=== PATIENT | male | born 1985 | race Caucasian/White ===

== ENCOUNTER 2017-12-04 17:28 | Emergency (ER) | payer OTHER, SELFPAY ==
[2017-12-04 17:30] VITALS: BP 149/92; PULSE 101; RESP 16; TEMP 35.9; BMI 29.5
--- NOTE | 2017-12-04 17:44 | ED.RN ---
pt reports slipping down six stairs yesterday evening. slipping backwards and landing on my tailbone. pt reports pain radiating down legs and to lower back but denies bowel or bladder dysfunction. pt denies hitting head or loc. last tylenol 1000mg aT 1430.
--- NOTE | 2017-12-04 18:03 | RAD_ITS ---
STUDY: X-RAY - LUMBAR SPINE REASON FOR EXAM: Male, 32 years old. Fall. Back and pelvic pain. TECHNIQUE: 2 view(s) of the lumbar spine were obtained. COMPARISON: None FINDINGS: Normal lumbar lordosis. There is no substantial scoliosis. There is a normal alignment of the vertebrae. Normal vertebral bodies and endplates. Normal disc space heights. The soft tissue structures are unremarkable. RAD/Lumbar Spine 2 or 3 Views IMPRESSION: No significant abnormality present. Electronically Signed: Aris Varela MD at 18:55 EDT , Service support ,
--- NOTE | 2017-12-04 18:03 | RAD_ITS ---
STUDY: X-RAY - SACRUM/COCCYX REASON FOR EXAM: Male, 32 years old. Fall down stairs. Low back and pelvic pain. TECHNIQUE: 3 view(s) of the sacrum and coccyx were obtained. COMPARISON: None. FINDINGS: Normal bilateral sacroiliac joints. Normal visualized sacral ala and fused sacral bodies. Normal sacrococcygeal junction with a normal angulation. Normal coccygeal segments. The presacral soft tissue structures are unremarkable. RAD/Sacrum-Coccyx min 2 Views IMPRESSION: No significant abnormality present. Electronically Signed: Aris Varela MD at 18:55 EDT , Service support ,
--- NOTE | 2017-12-04 18:04 | ED.VIS.GEN ---
History of Present Illness Chief Complaint: Back Informant: Patient Onset: Yesterday Context: Sudden Onset Timing: Continuous Quality: ache/sore Location: tailbone. radiates up into low back Current Severity: Moderate Maximum Severity: Moderate Worsened by: walking, sitting Relieved by: remaining still Associated Symptoms: no bowel or bladder dysfunction. no LE weakness or numbness. no abd pain Narrative: Patient states he slipped going down some steps, bounced his tailbone off 5 or 6 steps before he got to the end of the stair with case. Has been ambulatory without difficulty, here because of pain. Past Medical History - Allergies and Home Meds Allergies/Adverse Reactions: Allergies Penicillins [PCN] Adverse Reaction (Verified 06/11/13 11:36) Unknown Primary Care Physician: Oyl Steele PA [Primary Care Provider] - Past Medical History: None Smoking Status: Current every day smoker Review of Systems All systems negative except as indicated Gastrointestinal: Denies: Abdominal pain, Nausea, Hematochezia Genitourinary: Denies: Hematuria Musculoskeletal: Reports: Back pain. Denies: Neck pain Skin: Denies: Rash, Wounds Neurological: Denies: Headache, Weakness, Parasthesia, Numbness Physical Exam Vital Signs/Narrative: Vital Signs Temp Pulse Resp BP 12/04/17 17:30 96.6 F L 101 H 16 149/92 H Inital Vital Signs reviewed: Yes General: Well nourished, Well developed, - - Well-appearing NAD Head: Normocephalic, Atraumatic Eyes: Perrl, EOMI ENT: Moist mucous membranes, No rhinorrhea Back: Normal Inspection, Spinal tenderness - Lower lumbar. No step-off. Also tender at coccyx without crepitance. Skin: Normal color, No rash. Negative for: Trauma Neurological: Alert, Oriented x3, Cranial nerves II-XII grossly intact, Normal Strength, Normal Sensation, Normal Gait Psychological: Normal affect Diagnostic/Tx/Re-eval Clinical Impression(s) from Imaging Studies Lumbar Spine X-Ray 12/04/17 18:03 IMPRESSION: No significant abnormality present. Electronically Signed: Aris Varela MD at 18:55 EDT , Service support , Sacrum and Coccyx X-Ray 12/04/17 18:03 IMPRESSION: No significant abnormality present. Electronically Signed: Aris Varela MD at 18:55 EDT , Service support , - Medical Decision Making X-rays are normal. Patient given an ice pack and naproxen. He is asking for something for pain. I reviewed his oars report. He gets regular narcotic prescriptions from his PCP, if he feels he needs narcotics for these bruises, I recommend that he follow-up with his PCP his narcotic prescriber. ED Disposition - Plan for ED Patient: Disposition: Home or Assisted Living Chief Complaint: Back Diagnosis: Coccyx contusion Instructions: ED Contusion Sacrum Coccyx Referrals: Oly Steele PA [Primary Care Provider] - 3-5 Days if not improving
--- NOTE | 2017-12-04 18:07 | ED.DCSUM_ITS ---
History of Present Illness Chief Complaint: Back Informant: Patient Onset: Yesterday Context: Sudden Onset Timing: Continuous Quality: ache/sore Location: tailbone. radiates up into low back Current Severity: Moderate Maximum Severity: Moderate Worsened by: walking, sitting Relieved by: remaining still Associated Symptoms: no bowel or bladder dysfunction. no LE weakness or numbness. no abd pain Narrative: Patient states he slipped going down some steps, bounced his tailbone off 5 or 6 steps before he got to the end of the stair with case. Has been ambulatory without difficulty, here because of pain. Past Medical History - Allergies and Home Meds Allergies/Adverse Reactions: Allergies Penicillins [PCN] Adverse Reaction (Verified 06/11/13 11:36) Unknown Primary Care Physician: Oly Steele PA [Primary Care Provider] - Past Medical History: None Smoking Status: Current every day smoker Review of Systems All systems negative except as indicated Gastrointestinal: Denies: Abdominal pain, Nausea, Hematochezia Genitourinary: Denies: Hematuria Musculoskeletal: Reports: Back pain. Denies: Neck pain Skin: Denies: Rash, Wounds Neurological: Denies: Headache, Weakness, Parasthesia, Numbness Physical Exam Vital Signs/Narrative: Vital Signs Temp Pulse Resp BP 12/04/17 17:30 96.6 F L 101 H 16 149/92 H Inital Vital Signs reviewed: Yes General: Well nourished, Well developed, - - Well-appearing NAD Head: Normocephalic, Atraumatic Eyes: Perrl, EOMI ENT: Moist mucous membranes, No rhinorrhea Back: Normal Inspection, Spinal tenderness - Lower lumbar. No step-off. Also tender at coccyx without crepitance. Skin: Normal color, No rash. Negative for: Trauma Neurological: Alert, Oriented x3, Cranial nerves II-XII grossly intact, Normal Strength, Normal Sensation, Normal Gait Psychological: Normal affect Diagnostic/Tx/Re-eval Clinical Impression(s) from Imaging Studies Lumbar Spine X-Ray 12/04/17 18:03 IMPRESSION: No significant abnormality present. Electronically Signed: Aris Varela MD at 18:55 EDT , Service support , Sacrum and Coccyx X-Ray 12/04/17 18:03 IMPRESSION: No significant abnormality present. Electronically Signed: Aris Varela MD at 18:55 EDT , Service support , - Medical Decision Making X-rays are normal. Patient given an ice pack and naproxen. He is asking for something for pain. I reviewed his oars report. He gets regular narcotic prescriptions from his PCP, if he feels he needs narcotics for these bruises, I recommend that he follow-up with his PCP his narcotic prescriber. ED Disposition - Plan for ED Patient: Disposition: Home or Assisted Living Chief Complaint: Back Diagnosis: Coccyx contusion Instructions: ED Contusion Sacrum Coccyx Referrals: Oly Steele PA [Primary Care Provider] - 3-5 Days if not improving
[2017-12-04] MEDS: Naproxen 500 MG Tablet PO (18:58)
[2017-12-04 19:16] VITALS: BP 139/78; PULSE 89; RESP 20; O2SAT 96
== END 2017-12-04 19:17 | disposition home or self-care (01) ==
PROVIDERS: Emergency Provider Emergency Medicine; Family Provider Physician Assistant; PCP Physician Assistant
DX: S30.0XXA Contusion of lower back and pelvis, initial encounter (principal); W10.9XXA Fall (on) (from) unspecified stairs and steps, initial encounter; Y93.9 Activity, unspecified; Y92.9 Unspecified place or not applicable; Y99.9 Unspecified external cause status; F17.200 Nicotine dependence, unspecified, uncomplicated
CPT/HCPCS: 72100; 72220; 99283

== ENCOUNTER 2017-12-28 10:41 | Emergency (ER) | payer OTHER, SELFPAY ==
[2017-12-28 10:42] VITALS: BP 137/96; PULSE 108; RESP 16; O2SAT 97; BMI 31.8
--- NOTE | 2017-12-28 10:42 | NURSING ---
NO OLD EKGS
--- NOTE | 2017-12-28 11:01 | NURSING ---
called [facility] for heart cath report done in jul, 2016. talked to nam in medical records. she will fax report to us.
[2017-12-28] MEDS: Aspirin 81 MG TAB.CHEW 324 MG PO (11:06)
[2017-12-28] MEDS: 0.9% Normal Saline 1,000 ML 150 ML IV (11:06)
[2017-12-28] MEDS: Clopidogrel Bisulfate 300 MG Tablet 75 MG PO (11:06)
[2017-12-28] MEDS: Metoprolol Tartrate 5 MG/5 ML Vial IV (11:06)
[2017-12-28 11:15] LABS: Absolute Lymphocyte Count 2.83 X10^3/ul (0.83-4.51); Absolute Neutrophil Count 5.5 X10^3/uL (2.0-7.7); Basophil# 0.04 X10^3/uL; Basophil% 0.4 % (0-1); Eosinophil# 0.18 X10^3/uL; Eosinophils% 1.9 % (0-5); Hematocrit 38.3 % (40-54); Hemoglobin 12.8 g/dl (13.0-16.5); Lymphocyte # 2.83 X10^3/ul (4.0); Lymphocyte % 30.3 % (19-41); Mean Corp Hgb Conc 33.4 g/gl (32-36); Mean Corpuscular Volume 86.8 fL (80-94); Mean Platelet Vol. 9.8 fl (6.2-12.0); Monocyte# 0.76 X10^3/uL; Monocyte% 8.1 % (0-10); Neutrophil # 5.52 X10^3/uL (2.7-7.7); Neutrophil % 59.1 % (47-70); POSITIVE COUNT NO; POSITIVE DIFFERENTIAL NO; POSITIVE MORPHOLOGY NO; Platelet Count 332 K/mm3 (150-450); RBC Distribution Width CV 13.2 % (11.6-14.6); RBC Distribution Width SD 41.8 fl (35.1-43.9); Red Blood Count 4.41 M/mm3 (4.6-6.2); White Blood Count 9.4 K/mm3 (4.4-11.0)
[2017-12-28 11:19] LABS: Anion Gap 9 (5-15); BUN 25 mg/dL (7-18); Calcium,Total 10.4 mg/dL (8.5-10.1); Chloride 104 mmol/L (98-107); Creatinine, Serum 1.67 mg/dL (0.70-1.30); EST Glomerular Filtration Rate 51 mL/min (>60); Est Glom Filt Rate - Afr Amer 61 mL/min (>60); Glucose 132 mg/dL (74-106); Potassium 4.2 mmol/L (3.5-5.1); Sodium Level 136 mmol/L (136-145)
[2017-12-28] MEDS: Lisinopril 20 MG Tablet PO (11:22)
--- NOTE | 2017-12-28 12:29 | ED.DCSUM_ITS ---
- ER Visit Summary Date of Service: 12/28/17 Chief Complaint: Chest pain History of Present Illness: The patient is a 32 M whose primary care physician is Dr. Steele and his brush clearing laborer is Dr. Edy Kasper. Reports she has chest pain that began 30 minutes ago while undergoing light activity. It is a substernal pressure that is 10 at 10 worsening a 10 currently. Is worsened by exertion or movement of his arms. Is relieved by nothing. Reports is been nauseated without vomiting. No diaphoresis. He does feel mildly short of breath. Patient reports that he had he had a stent placed in July 2016. He also reports that he forgot to take his morning medications. These include lisinopril, Plavix, and metoprolol. Physical Examination: Vitals: Stable. Afebrile. General: Well-nourished and well-developed. Head: Normocephalic atraumatic. Neck: Supple, no lymphadenopathy. No JVD. Nontender. Cardiovascular: Regular rate and rhythm. No murmurs. Respiratory: No respiratory distress. Clear to auscultation bilaterally. Abdominal: Soft, nontender, nondistended, normal bowel sounds. No guarding, rebound, or peritoneal signs. Back: Nontender. Extremities: Nontender, no edema. Skin: Normal color, no rash. Neurologic: Alert and oriented ?3. Cranial nerves II through XII are intact. Normal strength and sensation. Psych: Normal affect. Test Results: EKG is sinus tach 105 with no acute changes. There is no old EKG for comparison. Repeat EKG is sinus at 79 with and is unchanged. Initial troponin is negative. Repeat troponin is negative. Chem-7 is more for BUN of 25, creatinine 1.67, glucose 132, and calcium of 10.4. CBC is marked for hemoglobin of 12.8 hematocrit 38.3. Chest x-ray is normal. Emergency Department Course and Treatment: Patient had an IV placed. He was given 5 mg of metoprolol IV and 50 mg p.o. He was given his home dose of Plavix and lisinopril p.o. He was given aspirin. Treatment Plan: Patient's pain is atypical it is been constant for greater than 3 hours with no change in his EKG or enzymes. I feel it is suitable candidate for further outpatient evaluation. He is asking for referral to a brush clearing laborer here in town. He will be discharged with instructions to follow-up with Dr. Carr within a week for another exam. Return to the emergency department for any worsening symptoms. Disposition: To home in improved and stable condition. Impression: 1. Atypical chest pain. 2. JOCE score of 3. This note was generated with [employer] dictation software. It may contain incorrect words, spelling, and punctuation that were not noted in review of the chart prior to signing ED Disposition - Plan for ED Patient: Chief Complaint: Chest Pain Instructions: ED Chest Pain Atypical Unkn Cause Referrals: Debora Martinez MD [STAFF PHYSICIAN] - 1-2 Days if not improving Vito Carr MD [STAFF PHYSICIAN] - As soon as possible
[2017-12-28 12:33] VITALS: BP 122/70; PULSE 92; RESP 14; O2SAT 98
[2017-12-28] MEDS: Acetaminophen 500 MG Tablet 1000 MG PO (12:41)
[2017-12-28] MEDS: 0.9% Normal Saline 1,000 ML 999 ML IV (12:41)
[2017-12-28 13:10] VITALS: BP 135/70; PULSE 85; RESP 14; O2SAT 98
[2017-12-28 14:10] VITALS: BP 126/75; PULSE 82; RESP 14; O2SAT 98
[2017-12-28 14:52] VITALS: BP 123/64; PULSE 89; RESP 18; O2SAT 98
== END 2017-12-28 14:52 | disposition home or self-care (01) ==
PROVIDERS: Emergency Provider Emergency Medicine; Family Provider Physician Assistant; PCP Physician Assistant
DX: R07.89 Other chest pain (principal); R06.02 Shortness of breath; N28.9 Disorder of kidney and ureter, unspecified; R51 Headache; R19.7 Diarrhea, unspecified; R05 Cough; R11.0 Nausea; I25.10 Atherosclerotic heart disease of native coronary artery without angina pectoris; I10 Essential (primary) hypertension; E78.00 Pure hypercholesterolemia, unspecified; F17.210 Nicotine dependence, cigarettes, uncomplicated
CPT/HCPCS: 71045; 80048; 84484; 85025; 93005; 99285

== ENCOUNTER 2018-01-04 16:19 | Emergency (ER) | payer OTHER, SELFPAY ==
[2018-01-04 16:20] VITALS: BP 138/100; PULSE 85; RESP 16; TEMP 36.6; O2SAT 94; BMI 30.6
[2018-01-04 16:27] VITALS: BP 138/100; PULSE 77; RESP 16; O2SAT 95
[2018-01-04] MEDS: 0.9% Normal Saline 1,000 ML 1000 ML IV (16:55)
[2018-01-04] MEDS: Ketorolac 30 MG/ML Syringe IV (16:55)
[2018-01-04] MEDS: Acetaminophen 500 MG Tablet 1000 MG PO (16:55)
[2018-01-04] MEDS: Ondansetron 4 MG/2 ML Vial IV (16:55)
[2018-01-04 17:01] LABS: Absolute Lymphocyte Count 2.55 X10^3/ul (0.83-4.51); Absolute Neutrophil Count 3.7 X10^3/uL (2.0-7.7); Basophil# 0.02 X10^3/uL; Basophil% 0.3 % (0-1); Eosinophil# 0.22 X10^3/uL; Eosinophils% 3.1 % (0-5); Hematocrit 38.6 % (40-54); Hemoglobin 12.7 g/dl (13.0-16.5); Lymphocyte # 2.55 X10^3/ul (4.0); Lymphocyte % 36.3 % (19-41); Mean Corp Hgb Conc 32.9 g/gl (32-36); Mean Corpuscular Volume 88.1 fL (80-94); Mean Platelet Vol. 9.7 fl (6.2-12.0); Monocyte# 0.48 X10^3/uL; Monocyte% 6.8 % (0-10); Neutrophil # 3.74 X10^3/uL (2.7-7.7); Neutrophil % 53.4 % (47-70); POSITIVE COUNT NO; POSITIVE DIFFERENTIAL NO; POSITIVE MORPHOLOGY NO; Platelet Count 279 K/mm3 (150-450); RBC Distribution Width CV 12.9 % (11.6-14.6); RBC Distribution Width SD 41.6 fl (35.1-43.9); Red Blood Count 4.38 M/mm3 (4.6-6.2)
[2018-01-04 17:12] LABS: Anion Gap 8 (5-15); BUN 17 mg/dL (7-18); BUN/Creat Ratio 14.8 RATIO (10-20); Calcium,Total 9.4 mg/dL (8.5-10.1); Chloride 102 mmol/L (98-107); Creatinine, Serum 1.15 mg/dL (0.70-1.30); EST Glomerular Filtration Rate 78 mL/min (>60); Est Glom Filt Rate - Afr Amer 94 mL/min (>60); Estimated Creatinine Clearance 95.22 ml/min; Glucose 98 mg/dL (74-106); Sodium Level 135 mmol/L (136-145)
[2018-01-04 17:23] VITALS: BP 135/102; PULSE 77; RESP 19; O2SAT 97
--- NOTE | 2018-01-04 17:51 | ED.DCSUM_ITS ---
- ER Visit Summary Date of Service: 01/04/18 Chief Complaint: Chest pain History of Present Illness: The patient is a [address] Steele and Dr. Snow. Patient reports she has chest pain that began yesterday. It is continuous waxing and waning pain. Describes it as burning. It is 10 at 10 worsening a 10 currently. Is worsened by exertion relieved by nothing. She has been nausea and vomited twice. Is also been diaphoretic and short of breath. On review of systems patient denies any abdominal pain. However, he reports he has had 3 episodes of diarrhea today. He reports there is a cough is productive yellow sputum without blood. He denies any fever or chills. Reports he has a headache that stated 10 severity. Similar to prior headaches. Physical Examination: Vitals: Stable. Afebrile. General: Well-nourished and well-developed. Head: Normocephalic atraumatic. Neck: Supple, no lymphadenopathy. No JVD. Nontender. Cardiovascular: Regular rate and rhythm. No murmurs. Respiratory: No respiratory distress. Clear to auscultation bilaterally. Abdominal: Soft, nontender, nondistended, normal bowel sounds. No guarding, rebound, or peritoneal signs. Back: Nontender. Extremities: Nontender, no edema. Skin: Normal color, no rash. Neurologic: Alert and oriented ?3. Cranial nerves II through XII are intact. Normal strength and sensation. Psych: Normal affect. Test Results: EKG is sinus at 79 is unchanged from earlier this month. Troponin is negative despite greater than 12 hours of constant pain. Chem-7 is remarkable for sodium 135. CBC is marked for an H&H 12.7 and 38.6. Chest x- ray is normal. Emergency Department Course and Treatment: Patient was treated the dose of Toradol IV and Tylenol p.o. He is resting comfortably. Treatment Plan: Patient will be discharged with Zofran. Instructed follow-up his primary care physician 1 to days if not improving. Disposition: To home in improved and stable condition. Impression: 1. Atypical chest pain. 2. URI. 3. Vomiting/diarrhea. 4. Cephalgia. This note was generated with [employer] software. It may contain incorrect words, spelling, and punctuation that were not noted in review of the chart prior to signing ED Disposition - Plan for ED Patient: Disposition: Home or Assisted Living Chief Complaint: Chest Pain Instructions: ED Chest Pain Atypical Unkn Cause Prescriptions: Ondansetron [Zofran Odt] 4 mg PO Q8H PRN PRN #10 tablet PRN Reason: Nausea Referrals: Oly Steele PA [Primary Care Provider] - 3-5 Days if not improving
[2018-01-04 18:05] VITALS: BP 133/98; PULSE 76; RESP 18; O2SAT 99
== END 2018-01-04 18:06 | disposition home or self-care (01) ==
PROVIDERS: Emergency Provider Emergency Medicine; Family Provider Physician Assistant; PCP Physician Assistant
DX: R07.89 Other chest pain (principal); J06.9 Acute upper respiratory infection, unspecified; R51 Headache; R19.7 Diarrhea, unspecified; R11.10 Vomiting, unspecified; I25.10 Atherosclerotic heart disease of native coronary artery without angina pectoris; I10 Essential (primary) hypertension; E78.00 Pure hypercholesterolemia, unspecified; F17.210 Nicotine dependence, cigarettes, uncomplicated
CPT/HCPCS: 71046; 80048; 84484; 85025; 93005; 96361; 96374; 96375; 99285; J7030; A4216; J2405

== ENCOUNTER 2018-03-23 16:51 | Observation (INO) | payer OTHER, SELFPAY ==
[2018-03-23 16:53] VITALS: BP 109/74; PULSE 97; RESP 16; TEMP 35.9; O2SAT 100; BMI 29.9
[2018-03-23] MEDS: 0.9% Normal Saline 1,000 ML 1000 ML IV (17:15)
[2018-03-23] MEDS: Dicyclomine 20 MG/2 ML Vial IM (17:20)
[2018-03-23] MEDS: Ondansetron 4 MG/2 ML Vial IV (17:20)
[2018-03-23 17:24] LABS: Absolute Neutrophil Count 4.6 X10^3/uL (2.0-7.7); Basophil# 0.05 X10^3/uL; Basophil% 0.6 % (0-1); Eosinophil# 0.35 X10^3/uL; Eosinophils% 4.2 % (0-5); Hematocrit 33.5 % (40-54); Hemoglobin 10.9 g/dl (13.0-16.5); Lymphocyte % 31.6 % (19-41); Mean Corp Hgb Conc 32.5 g/gl (32-36); Mean Corpuscular Hgb 30.2 pg (27.0-32.0); Mean Corpuscular Volume 92.8 fL (80-94); Mean Platelet Vol. 10.1 fl (6.2-12.0); Monocyte% 7.3 % (0-10); Neutrophil # 4.61 X10^3/uL (2.7-7.7); Neutrophil % 55.9 % (47-70); Platelet Count 362 K/mm3 (150-450); RBC Distribution Width SD 42.4 fl (35.1-43.9); Red Blood Count 3.61 M/mm3 (4.6-6.2); White Blood Count 8.2 K/mm3 (4.4-11.0)
[2018-03-23 17:25] LABS: POSITIVE COUNT NO; POSITIVE DIFFERENTIAL NO; POSITIVE MORPHOLOGY NO
[2018-03-23 17:50] LABS: ALB/GLOB Ratio 0.9 RATIO (0.9-2.4); AST(SGOT) 14 U/L (15-37); Alanine Aminotransfer ALT/SGPT 26 U/L (16-61); Alkaline Phosphatase 62 U/L (45-117); Anion Gap 9 (5-15); BUN 48 mg/dL (7-18); BUN/Creat Ratio 13.7 RATIO (10-20); Calcium,Total 9.5 mg/dL (8.5-10.1); Chloride 104 mmol/L (98-107); Creatinine, Serum 3.51 mg/dL (0.70-1.30); EST Glomerular Filtration Rate 22 mL/min (>60); Est Glom Filt Rate - Afr Amer 26 mL/min (>60); Estimated Creatinine Clearance 30.91 ml/min; Globulin 4.5 g/dL (2.2-4.2); Glucose 112 mg/dL (74-106); Protein, Total 8.5 g/dL (6.4-8.2); Sodium Level 134 mmol/L (136-145)
[2018-03-23 18:24] LABS: Lactic Acid 0.2 mmol/L (0.4-2.0)
[2018-03-23] MEDS: 0.9% Normal Saline 1,000 ML 999 ML IV (18:50)
[2018-03-23 18:55] VITALS: BP 111/71; PULSE 81; RESP 15; O2SAT 95
--- NOTE | 2018-03-23 18:58 | ED.DCSUM_ITS ---
- ER Visit Summary Date of Service: 03/23/18 Chief Complaint: [Vomiting and diarrhea] History of Present Illness: The patient is a 33 M [presents to the emergency department complaint of vomiting diarrhea for 4 days. Patient states that he has been vomiting 3-4 times a day and is having 8-12 episodes of watery stools. Patient complaining feeling dehydrated. Patient states he has not urinated in the day and a half. He describes intermittent abdominal cramping. He has not had any blood in his stool or black tarry stools. Patient had subjective fever at home and chills. He denies recent travel or antibiotic usage. He denies any sick contact.] Physical Examination: [HEENT-PERRLA, EOMI. Cranial nerves II through XII grossly intact. TMs clear. Mucous membranes dry. No adenopathy. Cardiovascular-regular rate and rhythm without murmur or ectopy Lungs-clear to auscultation, chest wall stable without crepitus or subcu emphysema Abdomen-normoactive bowel sounds, soft, nontender, no rebound or rigidity, no peritoneal signs. Extremities-intact ?4, normal range of motion, normal pulses, atraumatic] Test Results: [CBC with differential obtained showing of 8.2, hemoglobin 10.9, hematocrit 34, platelets 362. Chemistries unremarkable. BUN was 48 and creatinine 3.51.] Stool will be sent for enteric pathogens. Emergency Department Course and Treatment: [Patient was given a liter normal same fluid bolus as well as Zofran and Bentyl. Patient was ordered a second liter of normal saline.] Treatment Plan: [Admit] Disposition: [Admit] Impression: [Renal failure Dehydration Gastroenteritis] This note was generated with [employer] dictation software. It may contain incorrect words, spelling, and punctuation that were not noted in review of the chart prior to signing ED Disposition - Plan for ED Patient: Chief Complaint: Weakness Referrals: Care Physician,No Primary [Primary Care Provider] -
[2018-03-23 19:42] VITALS: BP 110/47; PULSE 74; RESP 17; O2SAT 94
--- NOTE | 2018-03-23 20:00 | PCM.HP.STD ---
Problem List (1) Gastroenteritis Status: Acute (2) Acute kidney injury Status: Acute History of Present Illness Date of Admission: 03/23/18 Chief Complaint: Abdominal pain, nausea and vomiting. The patient is a 33 year old M with a significant history of hereditary spastic paraplegia',bipolar disorder, HI status post stent, hypertension who presented with 5-day history of progressively worsening nausea, vomiting, diarrhea and abdominal pain. Associated with his symptoms is subjective fever with chills; sneezing and watery eyes. Patient reports no urine output for about 1-1/2 days. Because of the progressively worsening of his symptoms patient came to the emergency department. Past Medical History Medical History: Medical History (Last Updated 03/23/18 @ 20:24 by Satnam Chappell MD) CAD (coronary artery disease) I25.10 Hypertension I10 Allergies Penicillins [PCN] Adverse Reaction (Verified 12/28/17 10:41) Unknown Home Medications: Ambulatory Orders Medication Instructions Recorded Buspirone HCl 10 mg PO BID 12/04/17 Clopidogrel Bisulfate [Plavix] 75 mg PO DAILY 12/04/17 Fenofibrate Nanocrystallized 145 mg PO DAILY 12/04/17 [Fenofibrate] Lisinopril [Zestril] 40 mg PO DAILY 12/04/17 [place] Carbonate 150 mg PO QHS 12/04/17 Metoprolol Tartrate [Lopressor 100 mg PO BID 12/04/17 (beta [place])] Olanzapine [Zyprexa] 10 mg PO QHS 12/04/17 Omeprazole 20 mg PO DAILY 12/04/17 Rosuvastatin Calcium [Crestor] 40 mg PO DAILY 12/04/17 Venlafaxine HCl [Effexor Xr] 75 mg PO QHS 12/04/17 Gabapentin [Neurontin] 800 mg PO TID 03/23/18 Quetiapine Fumarate [Seroquel] 300 mg PO QHS 03/23/18 Surgical History: appendectomy, - - Plate in left ankle Psychiatric History: Bipolar Lives: Spouse/ Significant Other Smoking Status: Current every day smoker Tobacco Use: Cigarettes - *Family History Paternal Family History: Family History (Last Updated 03/23/18 @ 20:27 by Satnam Chappell MD) Mother Emphysema of lung Father Hereditary spastic paraplegia Review of Systems Constitutional: Reports: Chills, Fever - Subjective, Weakness. Denies: Weight Change HEENT: Denies: Head Aches, Sinus Congestion, Sinus Drainage Cardiovascular: Denies: Chest Pain, Palpitations Respiratory: Denies: Cough, Shortness of breath at rest, Sputum production Gastrointestinal: Reports: Abdominal Pain, Nausea, Vomiting Genitourinary: Denies: Dysuria Musculoskeletal: Denies: Joint Pain, Joint Tenderness Skin: Denies: Rash, Wounds Neurological: Denies: Numbness, Tingling, Focal weakness Psychiatric: Denies: Anxiety, Depression, Homicidal Ideations, Suicidal Ideations Hematologic/ Lymphatic: Denies: Easy Bruising, Easy Bleeding VTE Information - Inpt Only VTE Present on Admission: No VTE Mechan Device Prophylaxis: None VTE Pharm Prophylaxis ordered?: Yes Patient Problems: Active and Suspected Problems (Last Updated 03/23/18 @ 20:24 by Satnam Chappell MD) Gastroenteritis (Acute) Acute kidney injury (Acute) - Physical Exam General: Alert, Oriented x3, Cooperative HEENT: Atraumatic, PERRLA, EOMI, Normocephalic Neck: Supple, No JVD, Negative Carotid Bruits Lungs: Clear to auscultation, Normal air movement Cardiovascular: Regular rate, No murmurs Abdomen: Bowel Sounds Present, Soft, Non Tender Extremities: No edema, Capillary Refill Less than 3 Seconds Skin: No rashes, No breakdown Musculoskeletal: No Tenderness to Palpation of Joints or Extremities Neurological: Cranial nerves II-XII grossly intact Psych/Mental Status: Normal Affect, Appropriate Vital Signs Temp Pulse Resp BP Pulse Ox 96.6 F L 74 17 110/47 L 94 03/23/18 16:53 03/23/18 19:42 03/23/18 19:42 03/23/18 19:42 03/23/18 19:42 Oxygen Delivery Method Room Air Weight: 94.5 kg Body Mass Index (BMI) 29.9 Laboratory Tests Past 24 Hrs 03/23/18 03/23/18 03/23/18 17:07 17:07 17:35 WBC 8.2 RBC 3.61 L Hgb 10.9 L Hct 33.5 L MCV 92.8 MCH 30.2 MCHC 32.5 RDW 13.0 RDW Differential 42.4 Plt Count 362 MPV 10.1 Immature Gran % (Auto) 0.400 Neut % (Auto) 55.9 Lymph % (Auto) 31.6 [place] % (Auto) 7.3 Eos % (Auto) 4.2 Baso % (Auto) 0.6 Absolute Neuts (auto) 4.6 Absolute Lymphs (auto) 2.60 Total Counted Not Reportable Sodium 134 L Potassium 4.0 Chloride 104 Carbon Dioxide 21.0 Anion Gap 9 BUN 48 H Creatinine 3.51 H Estim Creat Clear Calc 30.91 Est GFR (MDRD) Af Amer 26 L Est GFR (MDRD) Non-Af 22 L BUN/Creatinine Ratio 13.7 Glucose 112 H Lactic Acid 0.2 L Calcium 9.5 Total Bilirubin 0.20 AST 14 L ALT 26 Alkaline Phosphatase 62 Total Protein 8.5 H Albumin 4.0 Globulin 4.5 H Albumin/Globulin Ratio 0.9 Assessment/Plan All Active Problems (Last Updated 03/23/18 @ 20:24 by Satnam Chappell MD) Gastroenteritis (Acute) Acute kidney injury (Acute) The patient is a 33 year old M with a significant history of hereditary spastic paraplegia, bipolar disorder, HI status post stent, hypertension who presented with 5-day history of progressively worsening nausea, vomiting, diarrhea and abdominal pain. Acute gastroenteritis Likely viral in etiology. Likely causing hypovolemia and acute kidney injury. Received IV hydration at the emergency department; continue IV hydration. Supportive treatment with antiemetics and IV morphine as needed. Clear liquid diet ordered. Enteric pathogen test was ordered from the emergency department. Follow results. Trend CBC Acute kidney injury His creatinine on admission was 3.51. Review of old records show that his creatinine on 01/04/2018 was 1.15. His BUN is also severely elevated at 48 His BUN over creatinine is less than 20. Likely prerenal with ATN components. Urinary studies ordered. IV hydration with normal saline. Urinary studies ordered. Lisinopril held Fenofibrate held Trend BMP Avoid nephrotoxic's. If patient does not improve consider nephrology consultation. Hyponatremia Sodium on admission 134 Mild Likely from hypovolemia Lactator's ringers hydration as above Tobacco abuse. Patient smokes about half pack per day. Counselled NicoDerm patch 14 mg ordered. HI with stent Dual antiplatelet therapy with aspirin and Plavix continued. Consider high intensity statin. Hypertension Blood pressure within goal at admission. Lisinopril held due to AK I Continue metoprolol. Parameters for holding placed. As needed labetalol. Bipolar disorder/depression Wellbutrin lithium, Seroquel and Zyprexa continued. DVT prophylaxis Subcutaneous heparin. Code Visit OBSV E&M: 32776 Initial observation care L3
[2018-03-23 20:27] VITALS: BMI 29.9
[2018-03-23 21:26] VITALS: BP 116/75; PULSE 67
[2018-03-23] MEDS: OLANZapine 10 MG Tablet PO (21:26)
[2018-03-23] MEDS: Metoprolol Tartrate 100 MG Tablet PO (21:26)
[2018-03-23] MEDS: Gabapentin 800 MG Tablet PO (21:26)
[2018-03-23] MEDS: QUEtiapine 100 MG Tablet 300 MG PO (21:26)
[2018-03-23] MEDS: busPIRone 5 MG Tablet 10 MG PO (21:27)
[2018-03-23] MEDS: Atorvastatin Calcium 80 MG Tablet PO (21:27)
[2018-03-23] MEDS: Lithium Carbonate 150 MG Capsule PO (21:27)
[2018-03-23] MEDS: Venlafaxine XR 75 MG Capsule PO (21:27)
[2018-03-23 21:28] LABS: Urine Sodium 82 mmol/L (Not Establ.)
[2018-03-23] MEDS: Lactated Ringers 1,000 ML 150 ML IV (21:29)
[2018-03-23 21:50] VITALS: BP 116/75; PULSE 67; RESP 18; TEMP 36.6; O2SAT 98
[2018-03-24 04:00] VITALS: BP 95/52; PULSE 66; RESP 18; TEMP 36.6; O2SAT 92
[2018-03-24] MEDS: Lactated Ringers 1,000 ML 150 ML IV ×2 (04:30→09:36)
[2018-03-24] MEDS: Morphine 2 MG/ML Syringe IV ×2 (05:22→11:25)
[2018-03-24] MEDS: Gabapentin 800 MG Tablet PO (05:23)
[2018-03-24 05:41] LABS: Absolute Lymphocyte Count 2.75 X10^3/ul (0.83-4.51); Absolute Neutrophil Count 3.3 X10^3/uL (2.0-7.7); Basophil# 0.02 X10^3/uL; Basophil% 0.3 % (0-1); Eosinophil# 0.22 X10^3/uL; Eosinophils% 3.3 % (0-5); Hematocrit 27.9 % (40-54); Hemoglobin 8.8 g/dl (13.0-16.5); Lymphocyte # 2.75 X10^3/ul (4.0); Mean Corp Hgb Conc 31.5 g/gl (32-36); Mean Corpuscular Hgb 29.7 pg (27.0-32.0); Mean Corpuscular Volume 94.3 fL (80-94); Mean Platelet Vol. 9.6 fl (6.2-12.0); Monocyte# 0.42 X10^3/uL; Monocyte% 6.3 % (0-10); Neutrophil # 3.28 X10^3/uL (2.7-7.7); Platelet Count 261 K/mm3 (150-450); RBC Distribution Width CV 13.3 % (11.6-14.6); RBC Distribution Width SD 45.9 fl (35.1-43.9); Red Blood Count 2.96 M/mm3 (4.6-6.2); White Blood Count 6.7 K/mm3 (4.4-11.0)
[2018-03-24 05:42] LABS: POSITIVE COUNT NO; POSITIVE DIFFERENTIAL NO; POSITIVE MORPHOLOGY NO
[2018-03-24 05:56] LABS: Anion Gap 8 (5-15); BUN 45 mg/dL (7-18); BUN/Creat Ratio 14.5 RATIO (10-20); Calcium,Total 8.5 mg/dL (8.5-10.1); Chloride 112 mmol/L (98-107); Creatinine, Serum 3.11 mg/dL (0.70-1.30); EST Glomerular Filtration Rate 25 mL/min (>60); Est Glom Filt Rate - Afr Amer 30 mL/min (>60); Estimated Creatinine Clearance 34.88 ml/min; Glucose 93 mg/dL (74-106); Potassium 4.6 mmol/L (3.5-5.1); Sodium Level 141 mmol/L (136-145)
[2018-03-24 09:05] VITALS: BP 99/52; PULSE 74; RESP 16; TEMP 36.6; O2SAT 95
[2018-03-24 09:19] VITALS: BP 99/52
[2018-03-24] MEDS: busPIRone 5 MG Tablet 10 MG PO (09:28)
[2018-03-24] MEDS: Clopidogrel Bisulfate 75 MG Tablet PO (09:28)
[2018-03-24] MEDS: Pantoprazole Sodium 20 MG Tablet PO (09:28)
[2018-03-24] MEDS: Enoxaparin 40 MG/0.4 ML Syringe SC (09:28)
--- NOTE | 2018-03-24 10:28 | PCM.PN.HOSP ---
Patient Problems: Active and Suspected Problems (Last Updated 03/23/18 @ 20:24 by Satnam Chappell MD) Gastroenteritis (Acute) Acute kidney injury (Acute) Subjective: Feels good. Ate his meal with no further N/V. Vitals/I&O's: Vital Signs Temp Pulse Resp BP Pulse Ox 36.6 C 74 16 99/52 L 95 03/24/18 09:05 03/24/18 09:05 03/24/18 09:05 03/24/18 09:19 03/24/18 09:05 Oxygen Delivery Method Room Air Weight: 94.5 kg Body Mass Index (BMI) 29.9 Intake and Output for Last 24 Hours 03/22/18 03/23/18 03/24/18 23:59 23:59 23:59 Intake Total 1450 / 1450 Balance 1450 / 1450 General: Alert, No apparent distress HEENT: Atraumatic, Normocephalic Oral: Moist Mucosa, No Gingival or Mucosal Lesions/ Ulcerations Neck: No Nodes, Thyroid Normal Size and Texture Lungs: Clear to auscultation, Normal air movement, No rhonchi, No wheeze Cardiovascular: Regular rate, Regular Rhythm, Normal S1, Normal S2 Abdomen: Bowel Sounds Present, Soft, Non Tender, Non-Distended, No Hepato-splenomegaly Extremities: No edema, No Calf Tenderness Skin: No rashes, No breakdown Laboratory Results 03/23/18 17:07: WBC 8.2, RBC 3.61 L, Hgb 10.9 L, Hct 33.5 L, MCV 92.8, MCH 30.2, MCHC 32.5, RDW 13.0, RDW Differential 42.4, Plt Count 362, MPV 10.1, Immature Gran % (Auto) 0.400, Neut % (Auto) 55.9, Lymph % (Auto) 31.6, [place] % (Auto) 7.3, Eos % (Auto) 4.2, Baso % (Auto) 0.6, Absolute Neuts (auto) 4.6, Absolute Lymphs (auto) 2.60, Total Counted Not Reportable 03/23/18 17:07: Sodium 134 L, Potassium 4.0, Chloride 104, Carbon Dioxide 21.0, Anion Gap 9, BUN 48 H, Creatinine 3.51 H, Estim Creat Clear Calc 30.91, Est GFR (MDRD) Af Amer 26 L, Est GFR (MDRD) Non-Af 22 L, BUN/Creatinine Ratio 13.7, Glucose 112 H, Calcium 9.5, Total Bilirubin 0.20, AST 14 L, ALT 26, Alkaline Phosphatase 62, Total Protein 8.5 H, Albumin 4.0, Globulin 4.5 H, Albumin/Globulin Ratio 0.9 03/23/18 17:35: Lactic Acid 0.2 L 03/23/18 21:02: Urine Creatinine 75.70 03/23/18 21:02: Ur Random Sodium 82 03/24/18 05:12: WBC 6.7, RBC 2.96 L, Hgb 8.8 L, Hct 27.9 L, MCV 94.3 H, MCH 29.7, MCHC 31.5 L, RDW 13.3, RDW Differential 45.9 H, Plt Count 261, MPV 9.6, Immature Gran % (Auto) 0.100, Neut % (Auto) 49.0, Lymph % (Auto) 41.0, [place] % (Auto) 6.3, Eos % (Auto) 3.3, Baso % (Auto) 0.3, Absolute Neuts (auto) 3.3, Absolute Lymphs (auto) 2.75, Total Counted Not Reportable 03/24/18 05:12: Sodium 141, Potassium 4.6, Chloride 112 H, Carbon Dioxide 21.0, Anion Gap 8, BUN 45 H, Creatinine 3.11 H, Estim Creat Clear Calc 34.88, Est GFR (MDRD) Af Amer 30 L, Est GFR (MDRD) Non-Af 25 L, BUN/Creatinine Ratio 14.5, Glucose 93, Calcium 8.5 Current Medications Atorvastatin Calcium (Lipitor) 80 mg PO QHS [facility] Last Admin: 03/23/18 21:27 Dose: 80 mg Buspirone HCl (Buspar) 10 mg PO BID [facility] Last Admin: 03/24/18 09:28 Dose: 10 mg Clopidogrel Bisulfate (Plavix) 75 mg PO DAILY [facility] Last Admin: 03/24/18 09:28 Dose: 75 mg Enoxaparin Sodium (Lovenox) 40 mg SC DAILY@1000 [facility] Last Admin: 03/24/18 09:28 Dose: 40 mg Gabapentin (Neurontin) 800 mg PO TID [facility] Last Admin: 03/24/18 05:23 Dose: 800 mg Lactated Ringer's () 1,000 mls @ 150 mls/hr IV .Q6H40M [facility] Stop: 03/24/18 16:32 Last Admin: 03/24/18 09:36 Dose: 150 mls/hr Labetalol HCl (Trandate) 10 mg IV Q4H PRN PRN PRN Reason: SBP > 160 [place] Carbonate ([place] Carbonate) 150 mg PO QHS [facility] Last Admin: 03/23/18 21:27 Dose: 150 mg Magnesium Hydroxide (Milk Of Magnesia) 30 ml PO DAILY PRN PRN PRN Reason: Constipation Metoprolol Tartrate (Lopressor (Beta Ramakrishna)) 100 mg PO BID [facility] Last Admin: 03/24/18 09:19 Dose: Not Given Morphine Sulfate () 2 - 4 mg IV Q4H PRN PRN PRN Reason: MOD-SEVERE PAIN (4-10/10) Last Admin: 03/24/18 05:22 Dose: 2 mg Nicotine (Nicoderm Cq (Pbkc)) 14 mg TRANSDERM. DAILY [facility] Last Admin: 03/24/18 09:31 Dose: 14 mg Olanzapine (Zyprexa) 10 mg PO QHS [facility] Last Admin: 03/23/18 21:26 Dose: 10 mg Ondansetron HCl (Zofran) 4 mg IV Q8H PRN PRN PRN Reason: NAUSEA Pantoprazole Sodium (Protonix) 20 mg PO DAILY [facility] Last Admin: 03/24/18 09:28 Dose: 20 mg Quetiapine Fumarate (Seroquel) 300 mg PO QHS [facility] Last Admin: 03/23/18 21:26 Dose: 300 mg Sodium Chloride () 5 - 30 ml IV UD PRN PRN Reason: SALINE FLUSH Venlafaxine HCl (Effexor Xr) 75 mg PO QHS [facility] Last Admin: 03/23/18 21:27 Dose: 75 mg Medical Necessity - Tobacco Use Smoking Status: Current every day smoker Tobacco Use: Cigarettes Assessment/Plan All Active Problems (Last Updated 03/23/18 @ 20:24 by Satnam Chappell MD) Gastroenteritis (Acute) Acute kidney injury (Acute) 1. ALFREDO FENa 2.84%, suspect prerenal and ATN d/t gastroenteritis clinically, pt looks very well. will recheck BMP this afternoon, and if improved, then he can be discharged will need follow lab work as outpt, pt already has follow up appointment next month. 2. Gastroenteritis protracted but resolved Code Visit OBSV E&M: 35249 Subsequent observation care L2
--- NOTE | 2018-03-24 10:31 | PN_ITS ---
Patient Problems: Active and Suspected Problems (Last Updated 03/23/18 @ 20:24 by Satnam Chappell MD) Gastroenteritis (Acute) Acute kidney injury (Acute) Subjective: Feels good. Ate his meal with no further N/V. Vitals/I&O's: Vital Signs Temp Pulse Resp BP Pulse Ox 36.6 C 74 16 99/52 L 95 03/24/18 09:05 03/24/18 09:05 03/24/18 09:05 03/24/18 09:19 03/24/18 09:05 Oxygen Delivery Method Room Air Weight: 94.5 kg Body Mass Index (BMI) 29.9 Intake and Output for Last 24 Hours 03/22/18 03/23/18 03/24/18 23:59 23:59 23:59 Intake Total 1450 / 1450 Balance 1450 / 1450 General: Alert, No apparent distress HEENT: Atraumatic, Normocephalic Oral: Moist Mucosa, No Gingival or Mucosal Lesions/ Ulcerations Neck: No Nodes, Thyroid Normal Size and Texture Lungs: Clear to auscultation, Normal air movement, No rhonchi, No wheeze Cardiovascular: Regular rate, Regular Rhythm, Normal S1, Normal S2 Abdomen: Bowel Sounds Present, Soft, Non Tender, Non-Distended, No Hepato- splenomegaly Extremities: No edema, No Calf Tenderness Skin: No rashes, No breakdown Laboratory Results 03/23/18 17:07: WBC 8.2, RBC 3.61 L, Hgb 10.9 L, Hct 33.5 L, MCV 92.8, MCH 30.2, MCHC 32.5, RDW 13.0, RDW Differential 42.4, Plt Count 362, MPV 10.1, Immature Gran % (Auto) 0.400, Neut % (Auto) 55.9, Lymph % (Auto) 31.6, [place] % (Auto) 7.3, Eos % (Auto) 4.2, Baso % (Auto) 0.6, Absolute Neuts (auto) 4.6, Absolute Lymphs (auto) 2.60, Total Counted Not Reportable 03/23/18 17:07: Sodium 134 L, Potassium 4.0, Chloride 104, Carbon Dioxide 21.0, Anion Gap 9, BUN 48 H, Creatinine 3.51 H, Estim Creat Clear Calc 30.91, Est GFR (MDRD) Af Amer 26 L, Est GFR (MDRD) Non-Af 22 L, BUN/Creatinine Ratio 13.7, Glucose 112 H, Calcium 9.5, Total Bilirubin 0.20, AST 14 L, ALT 26, Alkaline Phosphatase 62, Total Protein 8.5 H, Albumin 4.0, Globulin 4.5 H, Albumin/Globulin Ratio 0.9 03/23/18 17:35: Lactic Acid 0.2 L 03/23/18 21:02: Urine Creatinine 75.70 03/23/18 21:02: Ur Random Sodium 82 03/24/18 05:12: WBC 6.7, RBC 2.96 L, Hgb 8.8 L, Hct 27.9 L, MCV 94.3 H, MCH 29.7, MCHC 31.5 L, RDW 13.3, RDW Differential 45.9 H, Plt Count 261, MPV 9.6, Immature Gran % (Auto) 0.100, Neut % (Auto) 49.0, Lymph % (Auto) 41.0, [place] % (Auto) 6.3, Eos % (Auto) 3.3, Baso % (Auto) 0.3, Absolute Neuts (auto) 3.3, Absolute Lymphs (auto) 2.75, Total Counted Not Reportable 03/24/18 05:12: Sodium 141, Potassium 4.6, Chloride 112 H, Carbon Dioxide 21.0, Anion Gap 8, BUN 45 H, Creatinine 3.11 H, Estim Creat Clear Calc 34.88, Est GFR (MDRD) Af Amer 30 L, Est GFR (MDRD) Non-Af 25 L, BUN/Creatinine Ratio 14.5, Glucose 93, Calcium 8.5 Current Medications Atorvastatin Calcium (Lipitor) 80 mg PO QHS [facility] Last Admin: 03/23/18 21:27 Dose: 80 mg Buspirone HCl (Buspar) 10 mg PO BID [facility] Last Admin: 03/24/18 09:28 Dose: 10 mg Clopidogrel Bisulfate (Plavix) 75 mg PO DAILY [facility] Last Admin: 03/24/18 09:28 Dose: 75 mg Enoxaparin Sodium (Lovenox) 40 mg SC DAILY@1000 [facility] Last Admin: 03/24/18 09:28 Dose: 40 mg Gabapentin (Neurontin) 800 mg PO TID [facility] Last Admin: 03/24/18 05:23 Dose: 800 mg Lactated Ringer's () 1,000 mls @ 150 mls/hr IV .Q6H40M [facility] Stop: 03/24/18 16:32 Last Admin: 03/24/18 09:36 Dose: 150 mls/hr Labetalol HCl (Trandate) 10 mg IV Q4H PRN PRN PRN Reason: SBP > 160 [place] Carbonate ([place] Carbonate) 150 mg PO QHS [facility] Last Admin: 03/23/18 21:27 Dose: 150 mg Magnesium Hydroxide (Milk Of Magnesia) 30 ml PO DAILY PRN PRN PRN Reason: Constipation Metoprolol Tartrate (Lopressor (Beta Ramakrishna)) 100 mg PO BID [facility] Last Admin: 03/24/18 09:19 Dose: Not Given Morphine Sulfate () 2 - 4 mg IV Q4H PRN PRN PRN Reason: MOD-SEVERE PAIN (4-10/10) Last Admin: 03/24/18 05:22 Dose: 2 mg Nicotine (Nicoderm Cq (Pbkc)) 14 mg TRANSDERM. DAILY [facility] Last Admin: 03/24/18 09:31 Dose: 14 mg Olanzapine (Zyprexa) 10 mg PO QHS [facility] Last Admin: 03/23/18 21:26 Dose: 10 mg Ondansetron HCl (Zofran) 4 mg IV Q8H PRN PRN PRN Reason: NAUSEA Pantoprazole Sodium (Protonix) 20 mg PO DAILY [facility] Last Admin: 03/24/18 09:28 Dose: 20 mg Quetiapine Fumarate (Seroquel) 300 mg PO QHS [facility] Last Admin: 03/23/18 21:26 Dose: 300 mg Sodium Chloride () 5 - 30 ml IV UD PRN PRN Reason: SALINE FLUSH Venlafaxine HCl (Effexor Xr) 75 mg PO QHS [facility] Last Admin: 03/23/18 21:27 Dose: 75 mg Medical Necessity - Tobacco Use Smoking Status: Current every day smoker Tobacco Use: Cigarettes Assessment/Plan All Active Problems (Last Updated 03/23/18 @ 20:24 by Satnam Chappell MD) Gastroenteritis (Acute) Acute kidney injury (Acute) 1. ALFREDO * FENa 2.84%, suspect prerenal and ATN d/t gastroenteritis * clinically, pt looks very well. * will recheck BMP this afternoon, and if improved, then he can be discharged * will need follow lab work as outpt, pt already has follow up appointment next month. 2. Gastroenteritis * protracted * but resolved Code Visit OBSV E&M: 80523 Subsequent observation care L2
--- NOTE | 2018-03-24 10:35 | DCINST_ITS ---
- Discharge Diagnoses Current Active Problems: Current Active and Chronic Problems (Last Updated 03/23/18 @ 20:24 by Satnam Chappell MD) Gastroenteritis (Acute) Acute kidney injury (Acute) You will use the following diet at home:: No restrictions Your food should be the consistency of: Regular Your liquids should be the consistency of: Regular/Thin Discharge Activity: Return to Normal Activity Return to work on:: 03/28/18 Call your doctor if you observe: Fever of 101 or Higher, - - intractable nausea, vomiting, diarrhea. Allergies/Adverse Reactions: Allergies Penicillins [PCN] Adverse Reaction (Verified 12/28/17 10:41) Unknown Medications to take at Discharge Buspirone HCl 10 mg PO BID 12/04/17 Clopidogrel Bisulfate [Plavix] 75 mg PO DAILY 12/04/17 Fenofibrate Nanocrystallized [Fenofibrate] 145 mg PO DAILY 12/04/17 [place] Carbonate 150 mg PO QHS 12/04/17 Metoprolol Tartrate [Lopressor (beta [place])] 100 mg PO BID 12/04/17 Olanzapine [Zyprexa] 10 mg PO QHS 12/04/17 Omeprazole 20 mg PO DAILY 12/04/17 Rosuvastatin Calcium [Crestor] 40 mg PO DAILY 12/04/17 Venlafaxine HCl [Effexor Xr] 75 mg PO QHS 12/04/17 Gabapentin [Neurontin] 800 mg PO TID 03/23/18 Quetiapine Fumarate [Seroquel] 300 mg PO QHS 03/23/18 Primary Care Physician: Care Physician,No Primary [Primary Care Provider] - Please follow up with your Primary Care Physician in: your scheduled appointment in April. Test Results: Test results from this visit will be discussed in further detail at your follow- up appointment, if applicable. Proposed Discharge Date: 03/24/18
--- NOTE | 2018-03-24 10:36 | PCM.DC.SUM ---
Discharge Date and Diagnosis - Problem List Patient Problems: Active and Suspected Problems (Last Updated 03/23/18 @ 20:24 by Satnam Chappell MD) Acute kidney injury (Acute) Date of Admission: 03/23/18 Date of Discharge: 03/24/18 - Primary Discharge Diagnosis Active and Suspected Problems (Last Updated 03/23/18 @ 20:24 by Satnam Chappell MD) Gastroenteritis (Acute) Acute kidney injury (Acute) Hospital Course and Treatment Operations: None Procedures: None Summary of Care Provided: The patient is a 33 year old M with intractable nausea vomiting diarrhea for about a week. Patient presented with acute kidney injury with a creatinine of 3.5. Patient started on IV fluids and his subsequent creatinine to 3.1. Fractional excretion of sodium was 2.84, consistent more of an ATN type picture. I feel that his renal failure is probably a combination of prerenal and ATN. Patient's presales engineer is resolved and patient is well. We will repeat his BMP this afternoon and if shows improvement, the patient can be discharged. It is advised on patient to follow-up with primary care doctor, which patient states that he has an appointment next month so that his labs can be further monitored. I did anticipate normalization of his creatinine this afternoon is improving and he can be discharged. Patient advised not to return to work until the . [] Patient Problems: Active and Suspected Problems (Last Updated 03/23/18 @ 20:24 by Satnam Chappell MD) Acute kidney injury (Acute) - Physical Exam Vital Signs Temp Pulse Resp BP Pulse Ox 36.6 C 74 16 99/52 L 95 03/24/18 09:05 03/24/18 09:05 03/24/18 09:05 03/24/18 09:19 03/24/18 09:05 Oxygen Delivery Method Room Air Weight: 94.5 kg Body Mass Index (BMI) 29.9 Intake and Output for Last 24 Hours 03/22/18 03/23/18 03/24/18 23:59 23:59 23:59 Intake Total 1450 / 1450 Balance 1450 / 1450 Laboratory Tests Past 24 Hrs 03/23/18 03/23/18 03/23/18 17:07 17:07 17:35 WBC 8.2 RBC 3.61 L Hgb 10.9 L Hct 33.5 L MCV 92.8 MCH 30.2 MCHC 32.5 RDW 13.0 RDW Differential 42.4 Plt Count 362 MPV 10.1 Immature Gran % (Auto) 0.400 Neut % (Auto) 55.9 Lymph % (Auto) 31.6 [place] % (Auto) 7.3 Eos % (Auto) 4.2 Baso % (Auto) 0.6 Absolute Neuts (auto) 4.6 Absolute Lymphs (auto) 2.60 Total Counted Not Reportable Sodium 134 L Potassium 4.0 Chloride 104 Carbon Dioxide 21.0 Anion Gap 9 BUN 48 H Creatinine 3.51 H Estim Creat Clear Calc 30.91 Est GFR (MDRD) Af Amer 26 L Est GFR (MDRD) Non-Af 22 L BUN/Creatinine Ratio 13.7 Glucose 112 H Lactic Acid 0.2 L Calcium 9.5 Total Bilirubin 0.20 AST 14 L ALT 26 Alkaline Phosphatase 62 Total Protein 8.5 H Albumin 4.0 Globulin 4.5 H Albumin/Globulin Ratio 0.9 Ur Random Sodium Urine Creatinine 03/23/18 03/23/18 03/24/18 21:02 21:02 05:12 WBC 6.7 RBC 2.96 L Hgb 8.8 L Hct 27.9 L MCV 94.3 H MCH 29.7 MCHC 31.5 L RDW 13.3 RDW Differential 45.9 H Plt Count 261 MPV 9.6 Immature Gran % (Auto) 0.100 Neut % (Auto) 49.0 Lymph % (Auto) 41.0 [place] % (Auto) 6.3 Eos % (Auto) 3.3 Baso % (Auto) 0.3 Absolute Neuts (auto) 3.3 Absolute Lymphs (auto) 2.75 Total Counted Not Reportable Sodium Potassium Chloride Carbon Dioxide Anion Gap BUN Creatinine Estim Creat Clear Calc Est GFR (MDRD) Af Amer Est GFR (MDRD) Non-Af BUN/Creatinine Ratio Glucose Lactic Acid Calcium Total Bilirubin AST ALT Alkaline Phosphatase Total Protein Albumin Globulin Albumin/Globulin Ratio Ur Random Sodium 82 Urine Creatinine 75.70 03/24/18 05:12 WBC RBC Hgb Hct MCV MCH MCHC RDW RDW Differential Plt Count MPV Immature Gran % (Auto) Neut % (Auto) Lymph % (Auto) [place] % (Auto) Eos % (Auto) Baso % (Auto) Absolute Neuts (auto) Absolute Lymphs (auto) Total Counted Sodium 141 Potassium 4.6 Chloride 112 H Carbon Dioxide 21.0 Anion Gap 8 BUN 45 H Creatinine 3.11 H Estim Creat Clear Calc 34.88 Est GFR (MDRD) Af Amer 30 L Est GFR (MDRD) Non-Af 25 L BUN/Creatinine Ratio 14.5 Glucose 93 Lactic Acid Calcium 8.5 Total Bilirubin AST ALT Alkaline Phosphatase Total Protein Albumin Globulin Albumin/Globulin Ratio Ur Random Sodium Urine Creatinine Discharge Diet: No Restrictions Discharge Activity: Return to Normal Activity Return to work on:: 03/28/18 Call your doctor if you observe: Fever of 101 or Higher, - - intractable nausea, vomiting, diarrhea. Home Medications: Medications to take at Discharge Buspirone HCl 10 mg PO BID 12/04/17 Clopidogrel Bisulfate [Plavix] 75 mg PO DAILY 12/04/17 Fenofibrate Nanocrystallized [Fenofibrate] 145 mg PO DAILY 12/04/17 [place] Carbonate 150 mg PO QHS 12/04/17 Metoprolol Tartrate [Lopressor (beta [place])] 100 mg PO BID 12/04/17 Olanzapine [Zyprexa] 10 mg PO QHS 12/04/17 Omeprazole 20 mg PO DAILY 12/04/17 Rosuvastatin Calcium [Crestor] 40 mg PO DAILY 12/04/17 Venlafaxine HCl [Effexor Xr] 75 mg PO QHS 12/04/17 Gabapentin [Neurontin] 800 mg PO TID 03/23/18 Quetiapine Fumarate [Seroquel] 300 mg PO QHS 03/23/18 Primary Care Physician: Care Physician,No Primary [Primary Care Provider] - Please follow up with your Primary Care Physician in: your scheduled appointment in April. Disposition: Home Minutes spent on discharge:: 28 Patient Condition:: Good Medical Necessity - Tobacco Use Smoking Status: Current every day smoker Tobacco Use: Cigarettes Meaningful Use Info Meaningful Use Diagnoses (Choose all that apply): None applicable Code Visit OBSV E&M: 97839 Observation care discharge
[2018-03-24] MEDS: 0.9% NaCl Peripheral Flush Adult/Peds IV (11:25)
[2018-03-24 13:03] LABS: Anion Gap 4 (5-15); BUN 38 mg/dL (7-18); BUN/Creat Ratio 15.8 RATIO (10-20); Calcium,Total 9.3 mg/dL (8.5-10.1); Chloride 108 mmol/L (98-107); EST Glomerular Filtration Rate 33 mL/min (>60); Est Glom Filt Rate - Afr Amer 40 mL/min (>60); Glucose 115 mg/dL (74-106); Potassium 4.8 mmol/L (3.5-5.1); Sodium Level 139 mmol/L (136-145)
[2018-03-24 14:46] VITALS: BP 128/77; PULSE 84; RESP 16; TEMP 36.8; O2SAT 96
== END 2018-03-24 10:36 | disposition home or self-care (01) ==
LOC: ED 18:05 → MS3 20:03
PROVIDERS: Admitting Provider Hospitalist; Emergency Provider Emergency Medicine; Referring Provider Hospitalist
DX: K52.9 Noninfective gastroenteritis and colitis, unspecified (principal); N17.9 Acute kidney failure, unspecified; F17.210 Nicotine dependence, cigarettes, uncomplicated; Z79.899 Other long term (current) drug therapy; Z79.02 Long term (current) use of antithrombotics/antiplatelets; E86.0 Dehydration; I25.2 Old myocardial infarction; G11.4 Hereditary spastic paraplegia; I10 Essential (primary) hypertension; F31.9 Bipolar disorder, unspecified; I25.10 Atherosclerotic heart disease of native coronary artery without angina pectoris; E87.1 Hypo-osmolality and hyponatremia
CPT/HCPCS: 36415; 80048; 80053; 82570; 83605; 84300; 85025; 87506; 96361; 96372; 96374; 96375; 96376; 99218; 99281; 99406; J7030; J7120; A4216; G0378; J2405

== ENCOUNTER → 2018-05-25 11:50 | Outpatient (CLI) | payer OTHER, SELFPAY ==
[2018-03-23 20:27] VITALS: BMI 29.9
[2018-05-25 13:09] LABS: ALB/GLOB Ratio 1.1 RATIO (0.9-2.4); AST(SGOT) 36 U/L (15-37); Alanine Aminotransfer ALT/SGPT 71 U/L (16-61); Alkaline Phosphatase 65 U/L (45-117); Anion Gap 8 (5-15); BUN 14 mg/dL (7-18); BUN/Creat Ratio 12.4 RATIO (10-20); Calcium,Total 9.3 mg/dL (8.5-10.1); Chloride 108 mmol/L (98-107); Creatinine, Serum 1.13 mg/dL (0.70-1.30); EST Glomerular Filtration Rate 79 mL/min (>60); Est Glom Filt Rate - Afr Amer 96 mL/min (>60); Globulin 3.6 g/dL (2.2-4.2); Glucose 98 mg/dL (74-106); Potassium 3.9 mmol/L (3.5-5.1); Protein, Total 7.6 g/dL (6.4-8.2); Sodium Level 140 mmol/L (136-145); Thyroid Stim Hormone (TSH) 1.35 uIU/mL (0.358-3.74)
--- OUTSIDE RECORDS SUMMARY | 2018-07-30 07:56 | XMS RPT_ITS ---
:1985 Author Organization OHIP Support Name Relationship Address Phone SHANELL MCGHEE Unavailable [address] + [place] [id number] LITZY, LUIZ Unavailable [address] + [place] [address] RAYCO Unavailable [address] + [place] [address] SHANELL MCGHEE Unavailable [address] + [place] [address] LITZY, LUIZ Unavailable [address] + [place] [address] RAYCO Unavailable [address] + [place] [address] ART[employer] Unavailable [address] + [address] [place] [address] SHANELL MCGHEE Unavailable [address] + [place] [address] LITZY, LUIZ Unavailable [address] + [place] [address] [employer] Unavailable [address] + [address] [place] [address] SHANELL MCGHEE Unavailable [address] + [place] [address] LITZY, LUIZ Unavailable [address] + [place] [address] [employer] Unavailable [address] + [address] [place] [address] SHANELL MCGHEE Unavailable [address] + [place] [address] LITZY, LUIZ Unavailable [address] + [place] [address] SHANELL MCGHEE Unavailable [address] + [place] [address] LITZY, LUIZ Unavailable [address] + [place] [address] STAME Unavailable [address] + [place] [address] LITZYSHANELL FIGUEROA Unavailable [address] + [place] [address] LITZY, LUIZ Unavailable [address] + [place] [address] STAME Unavailable [address] + [place] [address] SHANELL MCGHEE Unavailable [address] + [place] [address] LITZY, LUIZ Unavailable [address] + [place] [address] UE Unavailable Unavailable Unavailable LITZY, LUIZ Unavailable Unavailable + LITZY, LUIZ Unavailable [address] [place] [address] NOT GIVEN Unavailable Unavailable Unavailable LITZY, LUIZ Unavailable Unavailable + LITZY, LUIZ Unavailable [address] [place] [address] NOT GIVEN Unavailable Unavailable Unavailable LITZY, LUIZ Unavailable Unavailable + LITZY, LUIZ Unavailable [address] [place] [address] NOT GIVEN Unavailable Unavailable Unavailable LITZY, LUIZ Unavailable Unavailable + LITZY, LUIZ Unavailable [address] [place] [address] NOT GIVEN Unavailable Unavailable Unavailable Care Team Providers Name Role Phone WILLIS NIEVES DO Admitting Unavailable WILLIS NIEVES DO Attending Unavailable OLY STEELE Referring Unavailable WILLIS NIEVES DO Primary Care Unavailable OLY STEELE Consulting Unavailable PROVIDER, UNKNOWN Consulting Unavailable WINIFRED RAMOS MSN,CONICAL MIXER-C Admitting Unavailable AMIWINIFRED GILBERT MSN,CONICAL MIXER-C Attending Unavailable WINIFRED RAMOS MSN,CONICAL MIXER-C Primary Care Unavailable OLY STEELE Consulting Unavailable PROVIDER, UNKNOWN Consulting Unavailable WINIFRED RAMOS MSN,CONICAL MIXER-C Admitting Unavailable AMICONE, WINIFRED MSN,CONICAL MIXER-C Attending Unavailable AMICONEWINIFRED MSN,CONICAL MIXER-C Primary Care Unavailable STEELE, OLY J Consulting Unavailable PROVIDER, UNKNOWN Consulting Unavailable STEELE, OLY J Admitting Unavailable STEELE, OLY J Attending Unavailable STEELE, OLY J Primary Care Unavailable STEELE, OLY J Consulting Unavailable PROVIDER, UNKNOWN Consulting Unavailable ALLAN, TERESA ([facility]) Attending Unavailable Ara Aguilar GLOBAL ENGINEERING MANAGER-C Attending Unavailable JeffAra varma GLOBAL ENGINEERING MANAGER-C Referring Unavailable Primay Care Physicia, No Primary Care Unavailable Primay Care Physicia, No Primary Care Unavailable Isai Ivory Attending Unavailable STEELE, OLY Primary Care Unavailable ALVARO BURTON Attending Unavailable STEELE, OLY Primary Care Unavailable KannanYossi Attending Unavailable STEELE, OLY Primary Care Unavailable Kannan, Yossi Attending Unavailable Kannan, Yossi Referring Unavailable Primay Care Physicia, No Primary Care Unavailable SreekanthyedarcygSatnam Admitting Unavailable Agyepong, Satnam Referring Unavailable Ishan Couch Attending Unavailable Agyepong, Satnam Admitting Unavailable Agyepong, Satnam Attending Unavailable Agyepong, Satnam Referring Unavailable Primay Care Physicia, No Primary Care Unavailable AgyepongSatnam Consulting Unavailable Agyepong, Satnam Admitting Unavailable Jochhaya, Ishan Attending Unavailable Agyepong, Satnam Referring Unavailable Primay Care Physicia, No Primary Care Unavailable Jopperi, Ishan Consulting Unavailable PROBLEMS PROBLEMS DATE TYPE CONDITION / CODE ATTENDING STATUS SOURCE 05/27/2018 Unknown S74.00XA - Injury Isai Ivory Active [place] [facility] sciatic nerve [facility] at hip and thigh Hospital level, Repository unspecified leg, initial encounter / S74.00XA(ICD-10) 05/25/2018 Unknown F31.9 - Bipolar Jeff, Active [place] disorder, Ara GLOBAL ENGINEERING MANAGER-C Community unspecified / Hospital F31.9(ICD-10) Repository 05/25/2018 Unknown Z79.899 - Other Jeff, Active [place] [employer] Ara GLOBAL ENGINEERING MANAGER-C Community (current) drug Hospital therapy / Repository Z79.899(ICD-10) PROCEDURES PROCEDURES No Procedure Records FoundRESULTS RESULTS EMERGENCY DEPARTMENT Observed: 05/27/2018 Status: F Source: BRITT[facility] SUMMARY 4:48 PM [facility] Medical Records Department [address] [place] [address] Emergency Department Summary 05/27/18 1627 MR#: [id number] Acct: [id number] Name: FELICIANO MCGHEE Rep #: [id number] : 1985 33 From: Isai Ivory MD PCP: Care Physician, No Primary Status: PRE ER - ER Visit Summary Date of Service: 05/27/18 Chief Complaint: Back pain History of Present Illness: The patient is a 33 M presents to the emergency department back pain. Patient has a history of hereditary spastic paraplegia. He walks with a limp. He states that because of that, he will get back pain from time to time. He is in pain management. States over the past week, he had worsening pain in his right low back that radiates down his right leg. He denies any problems with bowel or bladder. He denies any trauma. He denies any change in gait. He has taken ibuprofen with little improvement. Physical Examination: Afebrile, vitals unremarkable. Well- appearing female no acute distress. Head is normocephalic, atraumatic. Pupil's equal round reactive, extraocular muscles intact. Neck supple. Heart regular rate and rhythm. Lungs clear, chest nontender. Abdomen soft, nontender, nondistended. No pulsatile mass. Patient has paraspinal tenderness in the lumbar area, but no bony tenderness. Straight leg raise is negative bilaterally. 2+ symmetric lower extremity pulses. 2+ reflexes. No clonus. No weakness of dorsiflexion, plantar flexion, or extensor hallucis longus bilaterally. Test Results: [] Emergency Department Course and Treatment: The patient has no red flag symptoms. This does seem consistent with a peripheral radiculopathy. His pulses are normal. His reflexes are normal. His gait is stable. He was treated with IM medications. I did review his orders report. He has not had narcotic prescriptions since November which he was upfront about. He will be given 2 days of analgesics and antispasmodics. He was counseled on concerning symptoms. Patient will be discharged home. Treatment Plan: [] Disposition: Discharge Impression: Acute sciatica This note was generated with [employer]ihu[employer]ation software. It may contain incorrect words, spelling, and punctuation that were not noted in review of the chart prior to signing ED Disposition - Plan for ED Patient: Chief Complaint: Back Instructions: ED Sciatica Prescriptions: Hydrocodone Bitart/Apap 5-325 [[place] 5MG-325MG] 1 tab PO Q6H PRN PRN 2 Days #6 tab PRN Reason: Pain Naproxen [Naprosyn] 500 mg PO BID PRN #20 tab Cyclobenzaprine [Flexeril] 10 mg PO TID PRN #20 tab PRN Reason: Muscle Spasm Referrals: Care Physician,No Primary [Primary Care Provider] - What to do if you have Problems For any increased pain, shortness of breath, bleeding, nausea or vomiting, chest pain, or any unexpected problems, contact your Primary Care Provider. Call [facility] ([phone]) or report to the closest Emergency Room. Call 911 if necessary. 05/27/18 0822 <Electronically signed by Isai Ivory MD> Date Isai Ivory MD Cosigner Signature (If Indicated): Date CC: No Primary Care Physician LITHIUM Collected: 05/25/2018 Status: F Source: BRITTANY 12:01 PM [facility] REPOSITORY Order Comment: Date of Last Dose: 05/24/18 Time of Last Dose: 2129 TYPE CODE TESTS RESULT OUT OF RANGE REFERENCE UNITS LAB L501.9060 0.60-1.20 mmol/L Low LI 0.40 Performed By: #### L501.9060 #### [facility] [address] [place], [address] COMPREHENSIVE METABOLIC Collected: 05/25/2018 Status: F Source: BRITTANY PICHARDO 12:01 PM [facility] REPOSITORY TYPE CODE TESTS RESULT OUT OF RANGE REFERENCE UNITS LAB L501.0100 74-106 mg/dL Normal GLU 98 Result Comment: Please note revised GLUCOSE reference range effective 2017. LAB L501.1000 7-18 mg/dL Normal BUN 14 LAB L501.1100 0.70-1.30 mg/dL Normal CREAT,SERUM 1.13 Result Comment: The validity of the calculated GFR AND GFRAA in patients over 70 years has not been determined. Clinical correlation is essential. LAB L501.1110 >60 mL/min Normal EST GFR 79 Result Comment: Non- GFR Calc LAB L501.1115 >60 mL/min Normal EST GFR - AA 96 Result Comment: GFR Calc LAB L501.1300 10-20 RATIO Normal BUN/CRE 12.4 LAB L501.1500 6.4-8.2 g/dL T Normal PROT 7.6 LAB L501.1800 3.2-5.0 g/dL Normal ALB 4.0 LAB L501.1950 2.2-4.2 g/dL Normal GLOB 3.6 LAB L501.2000 0.9-2.4 RATIO Normal A/G 1.1 LAB L501.2200 8.5-10.1 mg/dL CA Normal 9.3 LAB L501.4100 15-37 U/L Normal AST 36 LAB L501.4305 45-117 U/L Normal ALK P 65 LAB L501.4405 16-61 U/L High ALT 71 LAB L501.4600 0.20-1.00 mg/dL T Normal BILI 0.30 LAB L501.5300 136-145 mmol/L NA Normal 140 LAB L501.5600 3.5-5.1 mmol/L K Normal 3.9 LAB L501.5900 98-107 mmol/L High CL 108 LAB L501.6100 21.0-32.0 mmol/L Normal CO2 24.0 LAB L501.6200 5-15 Normal GAP 8 Performed By: #### L500.4050, L501.9520 #### [facility] [address] [place], [place], [id number] THYROID STIM HORMONE Collected: 05/25/2018 Status: F Source: BRITTANY (TSH) 12:01 PM [facility] REPOSITORY TYPE CODE TESTS RESULT OUT OF RANGE REFERENCE UNITS LAB L501.9520 0.358-3.74 uIU/mL Normal TSH 1.35 Performed By: #### L500.4050, L501.9520 #### [facility] [address] [place], [address] BASIC METABOLIC Collected: 03/24/2018 Status: F Source: BRITTANY PROFILE (BMP) 12:30 PM [facility] REPOSITORY TYPE CODE TESTS RESULT OUT OF RANGE REFERENCE UNITS LAB L501.0100 74-106 mg/dL High GLU 115 Result Comment: Fasting Glucose result from 100 to 125 mg/dL suggests IMPAIRED HOMEOSTASIS per A.D.A. criteria. Please note revised GLUCOSE reference range effective 2017. LAB L501.1000 7-18 mg/dL High BUN 38 LAB L501.1100 0.70-1.30 mg/dL High CREAT,SERUM 2.40 Result Comment: The validity of the calculated GFR AND GFRAA in patients over 70 years has not been determined. Clinical correlation is essential. LAB L501.1110 >60 mL/min Low EST GFR 33 Result Comment: Non- GFR Calc LAB L501.1115 >60 mL/min Low EST GFR - AA 40 Result Comment: GFR Calc LAB L501.1255 ml/min Normal Estimated CRCL 45.20 LAB L501.1300 10-20 RATIO Normal BUN/CRE 15.8 LAB L501.2200 8.5-10 mg/dL Normal .1 CA 9.3 LAB L501.5300 136-14 mmol/L Normal 5 NA 139 LAB L501.5600 3.5-5. mmol/L Normal 1 K 4.8 LAB L501.5900 98-107 mmol/L High CL 108 LAB L501.6100 21.0-3 mmol/L Normal 2.0 CO2 27.0 LAB L501.6200 5-15 Low GAP 4 Performed By: #### L500.2500 #### [facility] [address] [place], [address] DISCHARGE SUMMARY Observed: 03/24/2018 Status: F Source: BRITTANY 10:38 AM [facility] REPOSITORY [facility] Medical Records Department [address] [place] [address] Discharge Summary 03/24/18 1036 MR#: [id number] Acct: [id number] Name: FELICIANO MCGHEE Rep #: [id number] : 1985 33 From: Ishan Couch DO PCP: Care Physician, No Primary Status: ADM JENY Y Location: [place] [id number] Discharge Date and Diagnosis - Problem List Patient Problems: Active and Suspected Problems (Last Updated 03/23/18 @ 20:24 by Satnam Chappell MD) Acute kidney injury (Acute) Date of Admission: 03/23/18 Date of Discharge: 03/24/18 - Primary Discharge Diagnosis Active and Suspected Problems (Last Updated 03/23/18 @ 20:24 by Satnam Chappell MD) Gastroenteritis (Acute) Acute kidney injury (Acute) Hospital Course and Treatment Operations: None Procedures: None Summary of Care Provided: The patient is a 33 year old M with intractable nausea vomiting diarrhea for about a week. Patient presented with acute kidney injury with a creatinine of 3.5. Patient started on IV fluids and his subsequent creatinine to 3.1. Fractional excretion of sodium was 2.84, consistent more of an ATN type picture. I feel that his renal failure is probably a combination of prerenal and ATN. 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 We will repeat his BMP this afternoon and if shows improvement, the patient can be discharged. It is advised on patient to follow-up with primary care doctor, which patient states that he has an appointment next month so that his labs can be further monitored. I did anticipate normalization of his creatinine this afternoon is improving and he can be discharged. Patient advised not to return to work until the . [] Patient Problems: Active and Suspected Problems (Last Updated 03/23/18 @ 20:24 by Satnam Chappell MD) Acute kidney injury (Acute) - Physical Exam Vital Signs Temp Pulse Resp BP Pulse Ox 36.6 C 74 16 99/52 L 95 03/24/18 09:05 03/24/18 09:05 03/24/18 09:05 03/24/18 09:19 03/24/18 09:05 Oxygen Delivery Method Room Air Weight: 94.5 kg Body Mass Index (BMI) 29.9 Intake and Output for Last 24 Hours Intake Total 1450 / 1450 Balance 1450 / 1450 Laboratory Tests Past 24 Hrs WBC 6.7 RBC 2.96 L Hgb 8.8 L Hct 27.9 L MCV 94.3 H WBC RBC Hgb Hct MCV MCH MCHC RDW RDW Differential Plt Count MPV Immature Gran % (Auto) Neut % (Auto) Discharge Diet: No Restrictions Discharge Activity: Return to Normal Activity Return to work on:: 03/28/18 Call your doctor if you observe: Fever of 101 or Higher, - - intractable nausea, vomiting, diarrhea. Home Medications: Medications to take at Discharge Buspirone HCl 10 mg PO BID 12/04/17 Clopidogrel Bisulfate [Plavix] 75 mg PO DAILY 12/04/17 Fenofibrate Nanocrystallized [Fenofibrate] 145 mg PO DAILY 12/04/17 [place] Carbonate 150 mg PO QHS 12/04/17 Metoprolol Tartrate [Lopressor (beta alexandria)] 100 mg PO BID 12/04/17 Olanzapine [Zyprexa] 10 mg PO QHS 12/04/17 Omeprazole 20 mg PO DAILY 12/04/17 Rosuvastatin Calcium [Crestor] 40 mg PO DAILY 12/04/17 Venlafaxine HCl [Effexor Xr] 75 mg PO QHS 12/04/17 Gabapentin [Neurontin] 800 mg PO TID 03/23/18 Quetiapine Fumarate [Seroquel] 300 mg PO QHS 03/23/18 Primary Care Physician: Care Physician,No Primary [Primary Care Provider] - Please follow up with your Primary Care Physician in: your scheduled appointment in April. Disposition: Home Minutes spent on discharge:: 28 Patient Condition:: Good Medical Necessity - Tobacco Use Smoking Status: Current every day smoker Tobacco Use: Cigarettes Meaningful Use Info Meaningful Use Diagnoses (Choose all that apply): None applicable Code Visit OBSV E AND M: 53121 Observation care discharge 03/24/18 1038 <Electronically signed by Ishan Couch DO> Date Ishan Couch DO Cosigner Signature (if applicable): Date CC: No Primary Care Physician; Ishan Jopperi DO Signed DISCHARGE INSTRUCTION Observed: 03/24/2018 Status: F Source: BRITTANY 10:35 AM [facility] REPOSITORY [facility] Medical Records Department [address] [place] [address] Instructions for Home/Discharge Instructions 03/24/18 1033 MR#: [id number] Acct: [id number] Name: FELICIANO MCGHEE Rep #: [id number] : 1985 33 From: Ishan Couch DO PCP: Care Physician, No Primary Status: ADM JENY - Discharge Diagnoses Current Active Problems: Current Active and Chronic Problems (Last Updated 03/23/18 @ 20:24 by Satnam Chappell MD) Gastroenteritis (Acute) Acute kidney injury (Acute) You will use the following diet at home:: No restrictions Your food should be the consistency of: Regular Your liquids should be the consistency of: Regular/Thin Discharge Activity: Return to Normal Activity Return to work on:: 03/28/18 Call your doctor if you observe: Fever of 101 or Higher, - - intractable nausea, vomiting, diarrhea. Allergies/Adverse Reactions: Allergies Penicillins [PCN] Adverse Reaction (Verified 12/28/17 10:41) Unknown Medications to take at Discharge Buspirone HCl 10 mg PO BID 12/04/17 Clopidogrel Bisulfate [Plavix] 75 mg PO DAILY 12/04/17 Fenofibrate Nanocrystallized [Fenofibrate] 145 mg PO DAILY 12/04/17 [place] Carbonate 150 mg PO QHS 12/04/17 Metoprolol Tartrate [Lopressor (beta [place]lexand[place])] 100 mg PO BID 12/04/17 Olanzapine [Zyprexa] 10 mg PO QHS 12/04/17 Omeprazole 20 mg PO DAILY 12/04/17 Rosuvastatin Calcium [Crestor] 40 mg PO DAILY 12/04/17 Venlafaxine HCl [Effexor Xr] 75 mg PO QHS 12/04/17 Gabapentin [Neurontin] 800 mg PO TID 03/23/18 Quetiapine Fumarate [Seroquel] 300 mg PO QHS 03/23/18 Primary Care Physician: Care Physician,No Primary [Primary Care Provider] - Please follow up with your Primary Care Physician in: your scheduled appointment in April. Test Results: Test results from this visit will be discussed in further detail at your follow-up appointment, if applicable. Proposed Discharge Date: 03/24/18 03/24/18 1035 <Electronically signed by Ishan Couch DO> Date Ishan Couch DO CC: No Primary Care Physician CBC W/DIFF, AUTOMATED Collected: 03/24/2018 Status: F Source: BRITTANY 5:12 AM [facility] REPOSITORY TYPE CODE TESTS RESULT OUT OF RANGE REFERENCE UNITS LAB L100.1000 4.4-11.0 K/mm3 Normal WBC 6.7 LAB L100.1200 4.6-6.2 M/mm3 Low RBC 2.96 LAB L100.1300 13.0-16.5 g/dl Low HGB 8.8 LAB L100.1400 40-54 % Low HCT 27.9 LAB L100.1500 80-94 fL High MCV 94.3 LAB L100.1600 27.0-32.0 pg Normal MCH 29.7 LAB L100.1700 32-36 g/gl Low MCHC 31.5 LAB L100.1810 11.6-14.6 % Normal RDW CV 13.3 LAB L100.1820 35.1-43.9 fl High RDW SD 45.9 LAB L100.1900 150-450 K/mm3 Normal PLT 261 LAB L100.2000 6.2-12.0 fl Normal MPV 9.6 LAB L100.2100 47-70 % Normal NEUT% 49.0 LAB L100.2200 19-41 % Normal LY% 41.0 LAB L100.2300 0-10 % Normal MONO% 6.3 LAB L100.2400 0-5 % Normal EO% 3.3 LAB L100.2500 0-1 % Normal BASO% 0.3 LAB L100.2550 0.0-0.9 % Normal IM GRAN % 0.100 Result Comment: IG% - Immature Granulocytes (promyelocytes, myelocytes and metamyelocytes) > 1% indicates that a LEFT SHIFT is Present. LAB L100.2620 2.0-7.7 X10 3/uL Normal Absolute Neut 3.3 LAB L100.2720 0.83-4.51 X10 3/ul Normal Absolute Lymph 2.75 Performed By: #### L100.0100 #### [facility] [address] [place], [address] BASIC METABOLIC Collected: 03/24/2018 Status: F Source: BRITTANY PROFILE (BMP) 5:12 AM [facility] REPOSITORY TYPE CODE TESTS RESULT OUT OF RANGE REFERENCE UNITS LAB L501.0100 74-106 mg/dL Normal GLU 93 Result Comment: Please note revised GLUCOSE reference range effective 2017. LAB L501.1000 7-18 mg/dL High BUN 45 LAB L501.1100 0.70-1.30 mg/dL High CREAT,SERUM 3.11 Result Comment: The validity of the calculated GFR AND GFRAA in patients over 70 years has not been determined. Clinical correlation is essential. LAB L501.1110 >60 mL/min Low EST GFR 25 Result Comment: Non- GFR Calc LAB L501.1115 >60 mL/min Low EST GFR - AA 30 Result Comment: GFR Calc LAB L501.1255 ml/min Normal Estimated CRCL 34.88 LAB L501.1300 10-20 RATIO Normal BUN/CRE 14.5 LAB L501.2200 8.5-10 mg/dL Normal .1 CA 8.5 LAB L501.5300 136-14 mmol/L Normal 5 NA 141 LAB L501.5600 3.5-5. mmol/L Normal 1 K 4.6 LAB L501.5900 98-107 mmol/L High CL 112 LAB L501.6100 21.0-3 mmol/L Normal 2.0 CO2 21.0 LAB L501.6200 5-15 Normal GAP 8 Performed By: #### L500.2500 #### [facility] [address] [place], [address] HISTORY AND PHYSICAL Observed: 03/24/2018 Status: F Source: BRITTANY EXAM 1:59 AM [facility] REPOSITORY [facility] Medical Records Department [address] [place] [address] History and Physical 03/23/181999 MR#: [id number] Acct: [id number] Name: FELICIANO MCGHEE Rep #: [id number] : 1985 33 From: Satnam Chappell MD PCP: Care Physician, No Primary Status: ADM JENY Y Location: [facility] [id number] Problem List (1) Gastroenteritis Status: Acute (2) Acute kidney injury Status: Acute History of Present Illness Date of Admission: 03/23/18 Chief Complaint: Abdominal pain, nausea and vomiting. The patient is a 33 year old M with a significant history of hereditary spastic paraplegia',bipolar disorder, [place] status post stent, hypertension who presented with 5-day history of progressively worsening nausea, vomiting, diarrhea and abdominal pain. Associated with his symptoms is subjective fever with chills; sneezing and watery eyes. Patient reports no urine output for about 1-1/2 days. Because of the progressively worsening of his symptoms patient came to the emergency department. Past Medical History Medical History: Medical History (Last Updated 03/23/18 @ 20:24 by Satnam Chappell MD) CAD (coronary artery disease) I25.10 Hypertension I10 Allergies Penicillins [PCN] Adverse Reaction (Verified 12/28/17 10:41) Unknown Home Medications: Ambulatory Orders Medication Instructions Recorded Buspirone HCl 10 mg PO BID 12/04/17 Surgical History: appendectomy, - - Plate in left ankle Psychiatric History: Bipolar Lives: Spouse/ Significant Other Smoking Status: Current every day smoker Tobacco Use: Cigarettes - *Family History Paternal Family History: Family History (Last Updated 03/23/18 @ 20:27 by Satnam Chappell MD) Mother Emphysema of lung Father Hereditary spastic paraplegia Review of Systems Constitutional: Reports: Chills, Fever - Subjective, Weakness. Denies: Weight Change HEENT: Denies: Head Aches, Sinus Congestion, Sinus Drainage Cardiovascular: Denies: Chest Pain, Palpitations Respiratory: Denies: Cough, Shortness of breath at rest, Sputum production Gastrointestinal: Reports: Abdominal Pain, Nausea, Vomiting Genitourinary: Denies: Dysuria Musculoskeletal: Denies: Joint Pain, Joint Tenderness Skin: Denies: Rash, Wounds Neurological: Denies: Numbness, Tingling, Focal weakness Psychiatric: Denies: Anxiety, Depression, Homicidal Ideations, Suicidal Ideations Hematologic/ Lymphatic: Denies: Easy Bruising, Easy Bleeding VTE Information - Inpt Only VTE Present on Admission: No VTE Mechan Device Prophylaxis: None VTE Pharm Prophylaxis ordered?: Yes Patient Problems: Active and Suspected Problems (Last Updated 03/23/18 @ 20:24 by Satnam Chappell MD) Gastroenteritis (Acute) Acute kidney injury (Acute) - Physical Exam General: Alert, Oriented x3, Cooperative HEENT: Atraumatic, PERRLA, EOMI, Normocephalic Neck: Supple, No JVD, Negative Carotid Bruits Lungs: Clear to auscultation, Normal air movement Cardiovascular: Regular rate, No murmurs Abdomen: Bowel Sounds Present, Soft, Non Tender Extremities: No edema, Capillary Refill Less than 3 Seconds Skin: No rashes, No breakdown Musculoskeletal: No Tenderness to Palpation of Joints or Extremities Neurological: Cranial nerves II-XII grossly intact Psych/Mental Status: Normal Affect, Appropriate Vital Signs Temp Pulse Resp BP Pulse Ox 96.6 F L 74 17 110/47 L 94 03/23/18 16:53 03/23/18 19:42 03/23/18 19:42 03/23/18 19:42 03/23/18 19:42 Oxygen Delivery Method Room Air Weight: 94.5 kg Body Mass Index (BMI) 29.9 Laboratory Tests Past 24 Hrs WBC 8.2 RBC 3.61 L Hgb 10.9 L Hct 33.5 L MCV 92.8 MCH 30.2 MCHC 32.5 RDW 13.0 RDW Differential 42.4 Assessment/Plan All Active Problems (Last Updated 03/23/18 @ 20:24 by Satnam Chappell MD) Gastroenteritis (Acute) Acute kidney injury (Acute) The patient is a 33 year old M with a significant history of hereditary spastic paraplegia, bipolar disorder, [place] status post stent, hypertension who presented with 5-day history of progressively worsening nausea, vomiting, diarrhea and abdominal pain. Acute gastroenteritis Likely viral in etiology. Likely causing hypovolemia and acute kidney injury. Received IV hydration at the emergency department; continue IV hydration. Supportive treatment with antiemetics and IV morphine as needed. Clear liquid diet ordered. Enteric pathogen test was ordered from the emergency department. Follow results. Trend CBC Acute kidney injury His creatinine on admission was 3.51. Review of old records show that his creatinine on 01/04/2018 was 1.15. His BUN is also severely elevated at 48 His BUN over creatinine is less than 20. Likely prerenal with ATN components. Urinary studies ordered. IV hydration with normal saline. Urinary studies ordered. Lisinopril held Fenofibrate held Trend BMP Avoid nephrotoxic's. If patient does not improve consider nephrology consultation. Hyponatremia Sodium on admission 134 Mild Likely from hypovolemia Lactator's ringers hydration as above Tobacco abuse. Patient smokes about half pack per day. Counselled NicoDerm patch 14 mg ordered. OK with stent Dual antiplatelet therapy with aspirin and Plavix continued. Consider high intensity statin. Hypertension Blood pressure within goal at admission. Lisinopril held due to AK I Continue metoprolol. Parameters for holding placed. As needed labetalol. Bipolar disorder/depression Wellbutrin lithium, Seroquel and Zyprexa continued. DVT prophylaxis Subcutaneous heparin. Code Visit OBSV E AND M: [id number] Initial observation care L3 03/24/18 0159 <Electronically signed by Satnam Chappell MD> Date Satnam Chappell MD Cosigner Signature: Date (if applicable) CC: No Primary Care Physician; Satnam Chappell MD Signed URINE SODIUM Collected: 03/23/2018 Status: F Source: [place] 9:02 PM [facility] REPOSITORY TYPE CODE TESTS RESULT OUT OF RANGE REFERENCE UNITS LAB L501.5500 Not Establ. mmol/L Normal UR NA 82 Performed By: #### L501.5500 #### [facility] [address] [place], [place], [address] CREATININE, URINE Collected: 03/23/2018 Status: F Source: [place] 9:02 PM [facility] REPOSITORY TYPE CODE TESTS RESULT OUT OF RANGE REFERENCE UNITS LAB L502.0300 NO RANGE EST. mg/dL Normal URINE 75.70 CREAT Performed By: #### L502.0300 #### [facility] [address] [place], [address] Observed: 03/23/2018 Status: F Source: [place] ENTERIC PATHOGEN 9:02 PM [facility] PANEL STOOL REPOSITORY Order Date: 03/23/18 EP PANEL STOOL Normal Reference Range = Not Detected Not detected for Campylobacter group, Salmonella species, Shigella species, Vibrio Group, Yersinia enterocolitica, EHEC (Shiga Toxin 1, Shiga Toxin 2), Norovirus Gl/Gll, and Rotavirus A. Other common stool pathogens are not detected on this panel include: Aeromonas/Plesiomonas or parasites. Order testing for these organisms separately if suspected. This is an amplified DNA test which makes it both specific and sensitive. CAMPYLOBACTER Not Detected Salmonella Not Detected Shigella sp. Not Detected Shiga Toxin Not Detected Yersinia Not Detected VIBRIO Not Detected Norovirus Not Detected Rotavirus Not Detected Performed By: #### M100.637 #### [facility] [address] [facility] [place], [address] EMERGENCY DEPARTMENT Observed: 03/23/2018 Status: F Source: [place] SUMMARY 6:58 PM [facility] REPOSITORY [facility] Medical Records Department [address] [place] [address] Emergency Department Summary 03/23/18 1856 MR#: [id number] Acct: [id number] Name: FELICIANO MCGHEE Rep #: [id number] : 1985 33 From: Handy Melton DO PCP: Care Physician, No Primary Status: REG ER - ER Visit Summary Date of Service: 03/23/18 Chief Complaint: [Vomiting and diarrhea] History of Present Illness: The patient is a 33 M [presents to the emergency department complaint of vomiting diarrhea for 4 days. Patient states that he has been vomiting 3-4 times a day and is having 8-12 episodes of watery stools. Patient complaining feeling dehydrated. Patient states he has not urinated in the day and a half. He describes intermittent abdominal cramping. He has not had any blood in his stool or black tarry stools. Patient had subjective fever at home and chills. He denies recent travel or antibiotic usage. He denies any sick contact.] Physical Examination: [HEENT-PERRLA, EOMI. Cranial nerves II through XII grossly intact. TMs clear. Mucous membranes dry. No adenopathy. Cardiovascular-regular rate and rhythm without murmur or ectopy Lungs-clear to auscultation, chest wall stable without crepitus or subcu emphysema Abdomen-normoactive bowel sounds, soft, nontender, no rebound or rigidity, no peritoneal signs. Extremities-intact 4, normal range of motion, normal pulses, atraumatic] Test Results: [CBC with differential obtained showing of 8.2, hemoglobin 10.9, hematocrit 34, platelets 362. Chemistries unremarkable. BUN was 48 and creatinine 3.51.] Stool will be sent for enteric pathogens. Emergency Department Course and Treatment: [Patient was given a liter normal same fluid bolus as well as Zofran and Bentyl. Patient was ordered a second liter of normal saline.] Treatment Plan: [Admit] Disposition: [Admit] Impression: [Renal failure Dehydration Gastroenteritis] This note was generated with [employer] software. It may contain incorrect words, spelling, and punctuation that were not noted in review of the chart prior to signing ED Disposition - Plan for ED Patient: Chief Complaint: Weakness Referrals: Care Physician,No Primary [Primary Care Provider] - What to do if you have Problems For any increased pain, shortness of breath, bleeding, nausea or vomiting, chest pain, or any unexpected problems, contact your Primary Care Provider. Call [facility] ([phone]) or report to the closest Emergency Room. Call 911 if necessary. 03/23/18 6198 <Electronically signed by Handy Melton DO> Date Handy Melton DO Cosigner Signature (If Indicated): Date CC: No Primary Care Physician LACTIC ACID Collected: 03/23/2018 Status: F Source: [place] 5:35 PM [facility] REPOSITORY Order Comment: Yes/No query for Sepsis Lactate Rule Y TYPE CODE TESTS RESULT OUT OF REFERENCE UNITS RANGE LAB L503.6005 0.4-2.0 mmol/L Low LACTIC ACID 0.2 Performed By: #### L503.6005 #### [facility] [address] [place], [place], [address] CBC W/DIFF, AUTOMATED Collected: 03/23/2018 Status: F Source: [place] 5:07 PM [facility] REPOSITORY TYPE CODE TESTS RESULT OUT OF RANGE REFERENCE UNITS LAB L100.1000 4.4-11.0 K/mm3 Normal WBC 8.2 LAB L100.1200 4.6-6.2 M/mm3 Low RBC 3.61 LAB L100.1300 13.0-16.5 g/dl Low HGB 10.9 LAB L100.1400 40-54 % Low HCT 33.5 LAB L100.1500 80-94 fL Normal MCV 92.8 LAB L100.1600 27.0-32.0 pg Normal MCH 30.2 LAB L100.1700 32-36 g/gl Normal MCHC 32.5 LAB L100.1810 11.6-14.6 % Normal RDW CV 13.0 LAB L100.1820 35.1-43.9 fl Normal RDW SD 42.4 LAB L100.1900 150-450 K/mm3 Normal PLT 362 LAB L100.2000 6.2-12.0 fl Normal MPV 10.1 LAB L100.2100 47-70 % Normal NEUT% 55.9 LAB L100.2200 19-41 % Normal LY% 31.6 LAB L100.2300 0-10 % Normal MONO% 7.3 LAB L100.2400 0-5 % Normal EO% 4.2 LAB L100.2500 0-1 % Normal BASO% 0.6 LAB L100.2550 0.0-0.9 % Normal IM GRAN % 0.400 Result Comment: IG% - Immature Granulocytes (promyelocytes, myelocytes and metamyelocytes) > 1% indicates that a LEFT SHIFT is Present. LAB L100.2620 2.0-7.7 X10 3/uL Normal Absolute Neut 4.6 LAB L100.2720 0.83-4.51 X10 3/ul Normal Absolute Lymph 2.60 Performed By: #### L100.0100 #### [facility] [address] [place], [address] COMPREHENSIVE METABOLIC Collected: 03/23/2018 Status: F Source: [place] 5:07 PM [facility] REPOSITORY TYPE CODE TESTS RESULT OUT OF RANGE REFERENCE UNITS LAB L501.0100 74-106 mg/dL High GLU 112 Result Comment: Fasting Glucose result from 100 to 125 mg/dL suggests IMPAIRED HOMEOSTASIS per A.D.A. criteria. Please note revised GLUCOSE reference range effective 2017. LAB L501.1000 7-18 mg/dL High BUN 48 LAB L501.1100 0.70-1.30 mg/dL High CREAT,SERUM 3.51 Result Comment: The validity of the calculated GFR AND GFRAA in patients over 70 years has not been determined. Clinical correlation is essential. LAB L501.1110 >60 mL/min Low EST GFR 22 Result Comment: Non- GFR Calc LAB L501.1115 >60 mL/min Low EST GFR - AA 26 Result Comment: GFR Calc LAB L501.1255 ml/min Normal Estimated CRCL 30.91 LAB L501.1300 10-20 RATIO Normal BUN/CRE 13.7 LAB L501.1500 6.4-8. g/dL High 2 T PROT 8.5 LAB L501.1800 3.2-5. g/dL Normal 0 ALB 4.0 LAB L501.1950 2.2-4. g/dL High 2 GLOB 4.5 LAB L501.2000 0.9-2. RATIO Normal 4 A/G 0.9 LAB L501.2200 8.5-10 mg/dL Normal .1 CA 9.5 LAB L501.4100 15-37 U/L Low AST 14 LAB L501.4305 45-117 U/L Normal ALK P 62 LAB L501.4405 16-61 U/L Normal ALT 26 LAB L501.4600 0.20-1 mg/dL Normal .00 T BILI 0.20 LAB L501.5300 136-14 mmol/L Low 5 NA 134 LAB L501.5600 3.5-5. mmol/L Normal 1 K 4.0 LAB L501.5900 98-107 mmol/L Normal CL 104 LAB L501.6100 21.0-3 mmol/L Normal 2.0 CO2 21.0 LAB L501.6200 5-15 Normal GAP 9 Performed By: #### L500.4050 #### [facility] [address] [place], [address] PROGRESS Observed: 03/02/2018 Status: COMPLETED Source: [place] 1:09 PM [facility] REPOSITORY HNO ID: [id number] Author: Teresa Hutton) Older Service: (none) Author Type: Nurse Practitioner Type: Progress Notes Filed: 03/02/2018 1:22 PM Note Text: CC: Patient presents with: Physical: forms completed [facility] Feliciano Mcghee is a 33 year old male who presents today for return to work clearance. Patient recently started job at [employer] about 3 weeks ago. He has a history of Hereditary Spastic Paraplegia which occasionally causes muscle spasms in his legs that are very painful and hard to stand on his feet. He had to call off work yesterday for this reason and now must have paperwork signed saying he is safe to return to work. Patient's gait is affected by this condition but currently at his baseline. Has occasional tremors of the arms and legs but do not affect work. Denies weakness in arms or legs, numbness, tingling, legs giving out, falling, injury. Has never had any work injuries secondary to HSP. Patient is new to [facility], moved to [facility] recently. Previous PCP was Oly Steele with [facility]. Requesting referral to neurology at [facility] for HSP. History of bipolar disorder and OK. 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 Denies any issues with medications. REVIEW OF SYSTEMS See HPI PAST MEDICAL HISTORY Diagnosis Date - Bipolar affective disorder, currently active ([facility]) 03/02/2018 - Hereditary spastic paraplegia (HCC) 03/02/2018 - Past history of myocardial infarction 03/02/2018 No past surgical history on file. ALLERGIES Penicillin MEDICATIONS busPIRone (BUSPAR) 10 mg tablet Take 1 tablet by mouth twice daily. clopidogrel (PLAVIX) 75 mg tablet Take 1 tablet by mouth once daily. fenofibrate nanocrystallized (TRICOR) 145 mg tablet Take 1 tablet by mouth once daily. gabapentin (NEURONTIN) 800 mg tablet Take 1 tablet by mouth three times daily. Prescribed by pain management lisinopril (ZESTRIL, PRINIVIL) 40 mg tablet Take 1 tablet by mouth once daily. lithium carbonate (ESKALITH) 300 mg capsule Take 1 capsule by mouth once daily. Prescribed by psychiatry metoprolol tartrate, short acting, (LOPRESSOR) 100 mg tablet Take 1 tablet by mouth twice daily. OLANZapine (ZYPREXA) 10 mg tablet Take 1 tablet by mouth daily at bedtime. Prescribed by psychiatry QUEtiapine (SEROQUEL) 300 mg tablet Take 1 tablet by mouth daily at bedtime. Prescribed by psychiatry rosuvastatin (CRESTOR) 40 mg tablet Take 1 tablet by mouth once daily. Prescribed by food and beverage manager venlafaxine ER (EFFEXOR XR) 75 mg 24 hr capsule Take 1 capsule by mouth once daily. Prescribed by psychiatry No family history on file. Social History Substance Use Topics - Smoking status: Current Every Day Smoker - Smokeless tobacco: Never Used - Alcohol use Not on file PHYSICAL EXAM BP 130/80 Pulse 74 Temp (!) 35.7 ?C (96.2 ?F) (Temporal Artery) Resp 14 Ht 177.8 cm (5' 10) Wt 96.6 kg (213 lb) SpO2 99% BMI 30.56 kg/m? General Appearance: well appearing, in no acute distress, alert Pysch: mood and affect broad and appropriate Lungs: Lungs clear to auscultation. No wheezing, rhonchi, rales Heart: RRR without murmur, gallop, or rubs. No ectopy Musculoskeletal: Back: Full and painless ROM. Muslce strength 5/5 bilaterally. Reflexes 3+ and symmetric. Fine tremors with arms outstretched, no resting tremors. Gait slow and shuffling but steady. Normal joint ROM, no swelling or tenderness. DTAP,TDAP,TD(1 - Tdap) due on 02/10/2004 ONE PNEUMOVAX PRIOR TO AGE 65 due on 02/10/2004 INFLUENZA(1) due on 01/08/2018 ASSESSMENT/PLAN: 1. Hereditary spastic paraplegia (HCC) - ICD9: 334.1, ICD10: G11.4 (primary diagnosis) Reviewed job description provided in letter from [employer] 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 They were aware of his diagnosis when he was hired. Per physical exam today patient can safely perform job duties. Forms signed and returned to patient. He will schedule appointment to establish care - CONSULT TO NEUROLOGY per patient request Follow-up as needed 2. Past history of myocardial infarction - ICD9: 412, ICD10: I25.2 Managed by food and beverage manager, continue with their recommendations 3. Bipolar affective disorder, current episode depressed, current episode severity unspecified (HCC) - ICD9: 296.50, ICD10: F31.30 Stable on medications. Continue with psychiatry recommendations. Prescription instructions reviewed with patient as applicable. Potential red flag symptoms discussed with the patient. Reviewed appropriate action plan to take if red flag symptoms occur. Patient agreeable to treatment plan. During this patient visit I have spent approximately 35 minutes in counseling regarding treatment options, medications and coordinating care. ROSSY LuxOV Observed: 03/02/2018 Status: COMPLETED Source: [place] 11:20 AM [facility] REPOSITORY Office Visit (INTMWS) LITZYFELICIANO ([id number]) 1985 M Date Time Provider Department 03/02/18 11:20 AM TERESA LEMUS ([place]ICA) IN[facility]WS During your visit today, we recorded the following information about you: Temperature Pulse Respiration Blood pressure 96.2 degrees 74/minute 14/minute 130/80 Weight Height 96.6 kg 1.778 m Teresa Lemus APRN.CNP 03/02/2018 1:22 PM Signed CC: Patient presents with: Physical: forms completed [facility] Feliciano Goodrichder is a 33 year old male who presents today for return to work clearance. Patient recently started job at [employer] about 3 weeks ago. He has a history of Hereditary Spastic Paraplegia which occasionally causes muscle spasms in his legs that are very painful and hard to stand on his feet. He had to call off work yesterday for this reason and now must have paperwork signed saying he is safe to return to work. Patient's gait is affected by this condition but currently at his baseline. Has occasional tremors of the arms and legs but do not affect work. Denies weakness in arms or legs, numbness, tingling, legs giving out, falling, injury. Has never had any work injuries secondary to HSP. Patient is new to [facility], moved to [facility] recently. Previous PCP was Oly Steele with [facility]. Requesting referral to neurology at [facility] for HSP. History of bipolar disorder and OK. 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 Denies any issues with medications. REVIEW OF SYSTEMS See HPI PAST MEDICAL HISTORY Diagnosis Date - Bipolar affective disorder, currently active ([facility]) 03/02/2018 - Hereditary spastic paraplegia ([facility]) 03/02/2018 - Past history of myocardial infarction 03/02/2018 No past surgical history on file. ALLERGIES Penicillin MEDICATIONS busPIRone (BUSPAR) 10 mg tablet Take 1 tablet by mouth twice daily. clopidogrel (PLAVIX) 75 mg tablet Take 1 tablet by mouth once daily. fenofibrate nanocrystallized (TRICOR) 145 mg tablet Take 1 tablet by mouth once daily. gabapentin (NEURONTIN) 800 mg tablet Take 1 tablet by mouth three times daily. Prescribed by pain management lisinopril (ZESTRIL, PRINIVIL) 40 mg tablet Take 1 tablet by mouth once daily. lithium carbonate (ESKALITH) 300 mg capsule Take 1 capsule by mouth once daily. Prescribed by psychiatry metoprolol tartrate, short acting, (LOPRESSOR) 100 mg tablet Take 1 tablet by mouth twice daily. OLANZapine (ZYPREXA) 10 mg tablet Take 1 tablet by mouth daily at bedtime. Prescribed by psychiatry QUEtiapine (SEROQUEL) 300 mg tablet Take 1 tablet by mouth daily at bedtime. Prescribed by psychiatry rosuvastatin (CRESTOR) 40 mg tablet Take 1 tablet by mouth once daily. Prescribed by food and beverage manager venlafaxine ER (EFFEXOR XR) 75 mg 24 hr capsule Take 1 capsule by mouth once daily. Prescribed by psychiatry No family history on file. Social History Substance Use Topics - Smoking status: Current Every Day Smoker - Smokeless tobacco: Never Used - Alcohol use Not on file PHYSICAL EXAM BP 130/80 Pulse 74 Temp (!) 35.7 ?C (96.2 ?F) (Temporal Artery) Resp 14 Ht 177.8 cm (5' 10) Wt 96.6 kg (213 lb) SpO2 99% BMI 30.56 kg/m? General Appearance: well appearing, in no acute distress, alert Pysch: mood and affect broad and appropriate Lungs: Lungs clear to auscultation. No wheezing, rhonchi, rales Heart: RRR without murmur, gallop, or rubs. No ectopy Musculoskeletal: Back: Full and painless ROM. Muslce strength 5/5 bilaterally. Reflexes 3+ and symmetric. Fine tremors with arms outstretched, no resting tremors. Gait slow and shuffling but steady. Normal joint ROM, no swelling or tenderness. DTAP,TDAP,TD(1 - Tdap) due on 02/10/2004 ONE PNEUMOVAX PRIOR TO AGE 65 due on 02/10/2004 INFLUENZA(1) due on 01/08/2018 ASSESSMENT/PLAN: 1. Hereditary spastic paraplegia (HCC) - ICD9: 334.1, ICD10: G11.4 (primary diagnosis) Reviewed job description provided in letter from [employer] 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 They were aware of his diagnosis when he was hired. Per physical exam today patient can safely perform job duties. Forms signed and returned to patient. He will schedule appointment to establish care - CONSULT TO NEUROLOGY per patient request Follow-up as needed 2. Past history of myocardial infarction - ICD9: 412, ICD10: I25.2 Managed by food and beverage manager, continue with their recommendations 3. Bipolar affective disorder, current episode depressed, current episode severity unspecified (HCC) - ICD9: 296.50, ICD10: F31.30 Stable on medications. Continue with psychiatry recommendations. Prescription instructions reviewed with patient as applicable. Potential red flag symptoms discussed with the patient. Reviewed appropriate action plan to take if red flag symptoms occur. Patient agreeable to treatment plan. During this patient visit I have spent approximately 35 minutes in counseling regarding treatment options, medications and coordinating care. Teresa Lemus, RADHA.[employer] PROJECT MANAGER Referring Provider: SELF [200] Allergies As of Date: 03/02/2018 Noted Allergy Reaction PENICILLIN 03/02/2018 16 - Unknown Date Reviewed: 03/02/2018 Reviewed by: Giselle Crowley Property Insurance Claims Examiner - Fully Assessed Reason for Visit: Physical [83] Cmt: forms completed Primary Visit Diagnosis:Hereditary spastic paraplegia (HCC) [G11.4] Other Visit Diagnoses:Past history of myocardial infarction [I25.2] Bipolar affective disorder, current episode depressed, current episode severity unspecified (HCC) [F31.30] Order(s):CONSULT TO NEUROLOGY [9019] Order #: [id number]: 1 busPIRone (BUSPAR) 10 mg tabletTake 1 tablet by mouth twice daily.Disp: Rfl: clopidogrel (PLAVIX) 75 mg tabletTake 1 tablet by mouth once daily.Disp: Rfl: fenofibrate nanocrystallized (TRICOR) 145 mg tabletTake 1 tablet by mouth once daily.Disp: Rfl: gabapentin (NEURONTIN) 800 mg tabletTake 1 tablet by mouth three times daily. Prescribed by pain managementDisp: 90 tabletRfl: 11 lisinopril (ZESTRIL, PRINIVIL) 40 mg tabletTake 1 tablet by mouth once daily.Disp: Rfl: lithium carbonate (ESKALITH) 300 mg capsuleTake 1 capsule by mouth once daily. Prescribed by psychiatryDisp: Rfl: metoprolol tartrate, short acting, (LOPRESSOR) 100 mg tabletTake 1 tablet by mouth twice daily.Disp: Rfl: OLANZapine (ZYPREXA) 10 mg tabletTake 1 tablet by mouth daily at bedtime. Prescribed by psychiatryDisp: Rfl: QUEtiapine (SEROQUEL) 300 mg tabletTake 1 tablet by mouth daily at bedtime. Prescribed by psychiatryDisp: Rfl: rosuvastatin (CRESTOR) 40 mg tabletTake 1 tablet by mouth once daily. Prescribed by cardiologistDisp: Rfl: venlafaxine ER (EFFEXOR XR) 75 mg 24 hr capsuleTake 1 capsule by mouth once daily. Prescribed by psychiatryDisp: Rfl: Prescriptions as of 03/02/2018 Sig: BUSPIRONE 10 MG TABLET Take 1 tablet by mouth twice * CLOPIDOGREL 75 MG TABLET Take 1 tablet by mouth once d* FENOFIBRATE NANOCRYSTALLIZED * Take 1 tablet by mouth once d* GABAPENTIN 800 MG TABLET Take 1 tablet by mouth three * LISINOPRIL 40 MG TABLET Take 1 tablet by mouth once d* LITHIUM CARBONATE 300 MG CAPS* Take 1 capsule by mouth once * METOPROLOL TARTRATE 100 MG TA* Take 1 tablet by mouth twice * OLANZAPINE 10 MG TABLET Take 1 tablet by mouth daily * QUETIAPINE 300 MG TABLET Take 1 tablet by mouth daily * ROSUVASTATIN 40 MG TABLET Take 1 tablet by mouth once d* VENLAFAXINE ER 75 MG CAPSULE,* Take 1 capsule by mouth once * Problem List As Of Date 03/02/2018 Noted Resolved Past history of myocardial infarction [I25.2] INVALID FOR* Bipolar affective disorder, currently active (H*INVALID FOR* Hereditary spastic paraplegia (HCC) [G11.4] INVALID FOR* Prescriptions ordered this encounter Disp Refills Start End BUSPIRONE 10 MG TABLET 03/02/2018 Class: Med Update Route: ORAL Sig: Take 1 tablet by mouth twice daily. CLOPIDOGREL 75 MG TABLET 03/02/2018 Class: Med Update Route: ORAL Sig: Take 1 tablet by mouth once daily. FENOFIBRATE NANOCRYSTALLIZED 145 MG * 03/02/2018 Class: Med Update Route: ORAL Sig: Take 1 tablet by mouth once daily. GABAPENTIN 800 MG TABLET 90 t* 11 03/02/2018 03/02/2019 Class: Med Update Route: ORAL Sig: Take 1 tablet by mouth three times daily. Prescribed by pain management LISINOPRIL 40 MG TABLET 03/02/2018 Class: Med Update Route: ORAL Sig: Take 1 tablet by mouth once daily. LITHIUM CARBONATE 300 MG CAPSULE 03/02/2018 Class: Med Update Route: ORAL Sig: Take 1 capsule by mouth once daily. Prescribed by psychiatry METOPROLOL TARTRATE 100 MG TABLET 03/02/2018 Class: Med Update Route: ORAL Sig: Take 1 tablet by mouth twice daily. OLANZAPINE 10 MG TABLET 03/02/2018 Class: Med Update Route: ORAL Sig: Take 1 tablet by mouth daily at bedtime. Prescribed by psychiatry QUETIAPINE 300 MG TABLET 03/02/2018 Class: Med Update Route: ORAL Sig: Take 1 tablet by mouth daily at bedtime. Prescribed by psychiatry ROSUVASTATIN 40 MG TABLET 03/02/2018 Class: Med Update Route: ORAL Sig: Take 1 tablet by mouth once daily. Prescribed by food and beverage manager VENLAFAXINE ER 75 MG CAPSULE,EXTENDE* 03/02/2018 Class: Med Update Route: ORAL Sig: Take 1 capsule by mouth once daily. Prescribed by psychiatry Medications Discontinued During This Encounter lithium carbonate (ESKALITH) 150 mg * 02/23/2018 03/02/2018 Class: Historical Med Sig: Disc: Course of therapy completed traZODone (DESYREL) 100 mg tablet 12/30/2017 03/02/2018 Class: Historical Med Sig: Disc: Reason for discontinue is not on file. gabapentin (NEURONTIN) 600 mg tablet 11/03/2017 03/02/2018 Class: Historical Med Sig: Disc: Reason for discontinue is not on file. busPIRone (BUSPAR) 10 mg tablet 02/22/2018 03/02/2018 Class: Historical Med Sig: Disc: Reason for discontinue is not on file. clopidogrel (PLAVIX) 75 mg tablet 02/13/2018 03/02/2018 Class: Historical Med Sig: Disc: Reason for discontinue is not on file. fenofibrate nanocrystallized (TRICOR* 12/29/2017 03/02/2018 Class: Historical Med Sig: Disc: Reason for discontinue is not on file. gabapentin (NEURONTIN) 800 mg tablet 02/22/2018 03/02/2018 Class: Historical Med Sig: Disc: Reason for discontinue is not on file. lisinopril (ZESTRIL, PRINIVIL) 40 mg* 02/13/2018 03/02/2018 Class: Historical Med Sig: Disc: Reason for discontinue is not on file. lithium carbonate (ESKALITH) 300 mg * 11/09/2017 03/02/2018 Class: Historical Med Sig: Disc: Reason for discontinue is not on file. metoprolol tartrate, short acting, (* 12/29/2017 03/02/2018 Class: Historical Med Sig: Disc: Reason for discontinue is not on file. OLANZapine (ZYPREXA) 10 mg tablet 12/31/2017 03/02/2018 Class: Historical Med Sig: Disc: Reason for discontinue is not on file. QUEtiapine (SEROQUEL) 300 mg tablet 02/22/2018 03/02/2018 Class: Historical Med Sig: Disc: Reason for discontinue is not on file. rosuvastatin (CRESTOR) 40 mg tablet 12/08/2017 03/02/2018 Class: Historical Med Sig: Disc: Reason for discontinue is not on file. venlafaxine ER (EFFEXOR XR) 75 mg 24* 02/22/2018 03/02/2018 Class: Historical Med Sig: Disc: Reason for discontinue is not on file. HYDROcodone-acetaminophen (NORCO) 5-* 11/17/2017 03/02/2018 Class: Historical Med Sig: Disc: Discontinued by another Health Care Provider Letter Text Department of Internal Medicine [address] [address] 03/02/2018 Feliciano Mcghee [facility]# [id number] [address] [facility] [address] TO WHOM IT MAY CONCERN: This is to certify that Mr. Feliciano Mcghee was seen today in the office and was unable to work 03/01/18 and 03/02/18 Sincerely yours, Teresa Lemus APRN.[employer] MANAGER Encounter Status:Closed by TERESA LEMUS CNP on 03/02/18 12 LEAD ELECTROCARDIOGRAM Observed: 01/06/2018 Status: F Source: [place] 1:22 PM [facility] RE[facility] Cardiovascular Services [address] [place] [address] 12 Lead EKG 01/04/18 1626 MR#: [id number] Acct: [id number] Name: FELICIANO MCGHEE Rep #: [id number] : 1985 32 From: Vito Jean MD Attending Dr: Status: DEP ER Ordering Dr: Yossi Dias MD Date: 01/04/18 Location: ED Sex: M C Admitted: Test Reason : CHEST PAIN Blood Pressure : / mmHG Vent. Rate : 079 BPM Atrial Rate : 079 BPM P-R Int : 160 ms QRS Dur : 106 ms QT Int : 388 ms P-R-T Axes : 031 055 046 degrees QTc Int : 444 ms Normal sinus rhythm Low voltage QRS (limb leads) Confirmed by MIRANDA MILLS, VITO ([id number]), proposal editor AARON JERNIGAN ([id number]) on 01/06/2018 1:22:28 PM Referred By: Yossi Dias Confirmed By:VITO JEAN MD 01/06/18 1322 Date Vito Jean MD CC: THERESE STEELE; Yossi Dias MD Signed EMERGENCY DEPARTMENT Observed: 01/05/2018 Status: F Source: [place] SUMMARY 1:43 AM [facility] RE[facility] Medical Records Department [address] [place] [address] Emergency Department Summary 01/04/18 1750 MR#: [id number] Acct: [id number] Name: FELICIANO MCGHEE Rep #: [id number] : 1985 32 From: Yossi Dias MD PCP: THERESE JOSEPH Status: DEP ER - ER Visit Summary Date of Service: 01/04/18 Chief Complaint: Chest pain History of Present Illness: The patient is a [address] Steele and Dr. Snow. Patient reports she has chest pain that began yesterday. It is continuous waxing and waning pain. Describes it as burning. It is 10 at 10 worsening a 10 currently. Is worsened by exertion relieved by nothing. She has been nausea and vomited twice. Is also been diaphoretic and short of breath. On review of systems patient denies any abdominal pain. However, he reports he has had 3 episodes of diarrhea today. He reports there is a cough is productive yellow sputum without blood. He denies any fever or chills. Reports he has a headache that stated 10 severity. Similar to prior headaches. Physical Examination: Vitals: Stable. Afebrile. General: Well-nourished and well-developed. Head: Normocephalic atraumatic. Neck: Supple, no lymphadenopathy. No JVD. Nontender. Cardiovascular: Regular rate and rhythm. No murmurs. Respiratory: No respiratory distress. Clear to auscultation bilaterally. Abdominal: Soft, nontender, nondistended, normal bowel sounds. No guarding, rebound, or peritoneal signs. Back: Nontender. Extremities: Nontender, no edema. Skin: Normal color, no rash. Neurologic: Alert and oriented 3. Cranial nerves II through XII are intact. Normal strength and sensation. Psych: Normal affect. Test Results: EKG is sinus at 79 is unchanged from earlier this month. Troponin is negative despite greater than 12 hours of constant pain. Chem-7 is remarkable for sodium 135. CBC is marked for an H AND H 12.7 and 38.6. Chest x-ray is normal. Emergency Department Course and Treatment: Patient was treated the dose of Toradol IV and Tylenol p.o. He is resting comfortably. Treatment Plan: Patient will be discharged with Zofran. Instructed follow-up his primary care physician 1 to days if not improving. Disposition: To home in improved and stable condition. Impression: 1. Atypical chest pain. 2. URI. 3. Vomiting/diarrhea. 4. Cephalgia. This note was generated with [employer] dictation software. It may contain incorrect words, spelling, and punctuation that were not noted in review of the chart prior to signing ED Disposition - Plan for ED Patient: Disposition: Home or Assisted Living Chief Complaint: Chest Pain Instructions: ED Chest Pain Atypical Unkn Cause Prescriptions: Ondansetron [Zofran Odt] 4 mg PO Q8H PRN PRN #10 tablet PRN Reason: Nausea Referrals: Oly Steele PA [Primary Care Provider] - 3-5 Days if not improving What to do if you have Problems For any increased pain, shortness of breath, bleeding, nausea or vomiting, chest pain, or any unexpected problems, contact your Primary Care Provider. Call [facility] ([phone]) or report to the closest Emergency Room. Call 911 if necessary. 01/05/18 0143 <Electronically signed by Yossi Dias MD> Date Yossi Dias MD Cosigner Signature (If Indicated): Date CC: THERESE STEELE CHEST PA AND LATERAL Observed: 01/04/2018 Status: F Source: [place] 4:44 PM [facility] Imaging Services [address] [place] [address] Chest PA and Lateral MR#: [id number] Acct: [id number] Name: FELICIANO MCGHEE Rep #: [id number] : 1985 M 32 From: Carrillo Pimentel MD PCP: THERESE JOSEPH Status: REG ER Study: Chest PA and Lateral Date of Exam: 01/04/18 Exam# [id number] Ordering Dr: Yossi Dias MD STUDY: X-RAY CHEST REASON FOR EXAM: Male, 32 years old. Acute chest pain TECHNIQUE: PA and lateral views of the chest. COMPARISON: 12/28/2017 FINDINGS: The lungs are clear and expanded. There is no demonstrated pleural abnormality. Normal size heart. Normal mediastinum and eliana. Normal visualized pulmonary arteries. Normal visualized aortic arch and descending thoracic aorta. Normal visualized thoracic spine. Normal visualized ribs, clavicles, and shoulders. There is no demonstrated abnormality of the visualized soft tissue structures of the upper abdomen. RAD/Chest PA and Lateral IMPRESSION: Normal x-ray examination of the chest. Electronically Signed: Juan Pimentel MD at 17:32 EDT , Service support , CC: THERESE STEELE; Yossi Dias MD Pediatric Acute Care Unit Nurse: Signed CBC W/DIFF, AUTOMATED Collected: 01/04/2018 Status: F Source: [place] 4:35 PM [facility] REPOS[facility] TYPE CODE TESTS RESULT OUT OF RANGE REFERENCE UNITS LAB L100.1000 4.4-11.0 K/mm3 Normal WBC 7.0 LAB L100.1200 4.6-6.2 M/mm3 Low RBC 4.38 LAB L100.1300 13.0-16.5 g/dl Low HGB 12.7 LAB L100.1400 40-54 % Low HCT 38.6 LAB L100.1500 80-94 fL Normal MCV 88.1 LAB L100.1600 27.0-32.0 pg Normal MCH 29.0 LAB L100.1700 32-36 g/gl Normal MCHC 32.9 LAB L100.1810 11.6-14.6 % Normal RDW CV 12.9 LAB L100.1820 35.1-43.9 fl Normal RDW SD 41.6 LAB L100.1900 150-450 K/mm3 Normal PLT 279 LAB L100.2000 6.2-12.0 fl Normal MPV 9.7 LAB L100.2100 47-70 % Normal NEUT% 53.4 LAB L100.2200 19-41 % Normal LY% 36.3 LAB L100.2300 0-10 % Normal MONO% 6.8 LAB L100.2400 0-5 % Normal EO% 3.1 LAB L100.2500 0-1 % Normal BASO% 0.3 LAB L100.2550 0.0-0.9 % Normal IM GRAN % 0.100 Result Comment: IG% - Immature Granulocytes (promyelocytes, myelocytes and metamyelocytes) > 1% indicates that a LEFT SHIFT is Present. LAB L100.2620 2.0-7.7 X10 3/uL Normal Absolute Neut 3.7 LAB L100.2720 0.83-4.51 X10 3/ul Normal Absolute Lymph 2.55 Performed By: #### L100.0100 #### [facility] [address] [place], [address] BASIC METABOLIC Collected: 01/04/2018 Status: F Source: [place] PROFILE ([facility]) 4:35 PM [facility]POS[facility] TYPE CODE TESTS RESULT OUT OF RANGE REFERENCE UNITS LAB L501.0100 74-106 mg/dL Normal GLU 98 Result Comment: Please note revised GLUCOSE reference range effective 2017. LAB L501.1000 7-18 mg/dL Normal BUN 17 LAB L501.1100 0.70-1.30 mg/dL Normal CREAT,SERUM 1.15 Result Comment: The validity of the calculated GFR AND GFRAA in patients over 70 years has not been determined. Clinical correlation is essential. LAB L501.1110 >60 mL/min Normal EST GFR 78 Result Comment: Non- GFR Calc LAB L501.1115 >60 mL/min Normal EST GFR - AA 94 Result Comment: GFR Calc LAB L501.1255 ml/min Normal Estimated CRCL 95.22 LAB L501.1300 10-20 RATIO Normal BUN/CRE 14.8 LAB L501.2200 8.5-10 mg/dL Normal .1 CA 9.4 LAB L501.5300 136-14 mmol/L Low 5 NA 135 LAB L501.5600 3.5-5. mmol/L Normal 1 K 4.0 LAB L501.5900 98-107 mmol/L Normal CL 102 LAB L501.6100 21.0-3 mmol/L Normal 2.0 CO2 25.0 LAB L501.6200 5-15 Normal GAP 8 Performed By: #### L500.2500, L501.4010 #### [facility] [address] [place], [address] TROPONIN-I Collected: 01/04/2018 Status: F Source: [place] 4:35 PM [facility] TYPE CODE TESTS RESULT OUT OF RANGE REFERENCE UNITS LAB L501.4010 <0.045 ng/mL Normal < 0.015 TROPONIN-I Result Comment: TROPONIN-I EXPECTED VALUES <0.045 Negative 0.045 - 0.590 Consistent with Cardiac Damage > OR = 0.600 Critical Value Not every elevated troponin is indicative of OK. These values should be used with clinical judgement in examining the patient's clinical picture for diagnosis. To establish a diagnosis of OK versus myocardial injury, there must be a demonstrated rise and/or fall in the troponin values, in addition to ischemic symptoms, EKG changes, new regional wall motion abnormality, and/or angiographical evidence. PLEASE NOTE: REFERENCE RANGES EDITED 17 Performed By: #### L500.2500, L501.4010 #### [facility] [address] [place], [address] 12 LEAD ELECTROCARDIOGRAM Observed: 12/31/2017 Status: F Source: [place] 1:22 PM [facility] Cardiovascular Services [address] [place] [address] 12 Lead EKG 12/28/17 1041 MR#: [id number] Acct: [id number] Name: FELICIANO MCGHEE Rep #: [id number] : 1985 32 From: Nils Hickman MD Attending Dr: Status: DEP ER Ordering Dr: Yossi Dias MD Date: 12/28/17 Location: ED Sex: M C Admitted: Test Reason : CP Blood Pressure : / mmHG Vent. Rate : 105 BPM Atrial Rate : 105 BPM P-R Int : 152 ms QRS Dur : 098 ms QT Int : 352 ms P-R-T Axes : 032 046 040 degrees QTc Int : 465 ms Sinus tachycardia Otherwise normal ECG Confirmed by NILS HICKMAN MD ([id number]), proposal editor AARON JERNIGAN ([id number]) on 12/31/2017 1:21:29 PM Referred By: MORRIS Confirmed By:NILS HICKMAN MD 12/31/171320 Date Nils Hickman MD CC: THERESE STEELE; Yossi Dias MD Signed 12 LEAD ELECTROCARDIOGRAM Observed: 12/31/2017 Status: F Source: [place] 1:22 PM [facility] Cardiovascular Services [address] [place] [address] 12 Lead EKG 12/28/17 1211 MR#: [id number] Acct: [id number] Name: FELICIANO MCGHEE Rep #: [id number] : 1985 32 From: Nils Hickman MD Attending Dr: Status: DEP ER Ordering Dr: Yossi Dias MD Date: 12/28/17 Location: ED Sex: M C Admitted: Test Reason : CP Blood Pressure : / mmHG Vent. Rate : 079 BPM Atrial Rate : 079 BPM P-R Int : 172 ms QRS Dur : 106 ms QT Int : 370 ms P-R-T Axes : 029 055 038 degrees QTc Int : 424 ms Normal sinus rhythm Normal ECG Confirmed by NILS HICKMAN MD ([id number]), proposal editor AARON JERNIGAN ([id number]) on 12/31/2017 1:21:44 PM Referred By: KANNAN Confirmed By:NILS HICKMAN MD 12/31/171320 Date Nils Hickman MD CC: THERESE STEELE; Yossi Dias MD Signed EMERGENCY DEPARTMENT Observed: 12/28/2017 Status: F Source: [place] SUMMARY 5:29 PM [facility] Medical Records Department [address] [place] [address] Emergency Department Summary 12/28/17 1227 MR#: [id number] Acct: [id number] Name: FELICIANO MCGHEE Rep #: [id number] : 1985 32 From: Yossi Dias MD PCP: THERESE JOSEPH Status: DEP ER - ER Visit Summary Date of Service: 12/28/17 Chief Complaint: Chest pain History of Present Illness: The patient is a 32 M whose primary care physician is Dr. Steele and his food and beverage manager is Dr. Edy Kasper. Reports she has chest pain that began 30 minutes ago while undergoing light activity. It is a substernal pressure that is 10 at 10 worsening a 10 currently. Is worsened by exertion or movement of his arms. Is relieved by nothing. Reports is been nauseated without vomiting. No diaphoresis. He does feel mildly short of breath. Patient reports that he had he had a stent placed in July 2016. He also reports that he forgot to take his morning medications. These include lisinopril, Plavix, and metoprolol. Physical Examination: Vitals: Stable. Afebrile. General: Well-nourished and well-developed. Head: Normocephalic atraumatic. Neck: Supple, no lymphadenopathy. No JVD. Nontender. Cardiovascular: Regular rate and rhythm. No murmurs. Respiratory: No respiratory distress. Clear to auscultation bilaterally. Abdominal: Soft, nontender, nondistended, normal bowel sounds. No guarding, rebound, or peritoneal signs. Back: Nontender. Extremities: Nontender, no edema. Skin: Normal color, no rash. Neurologic: Alert and oriented 3. Cranial nerves II through XII are intact. Normal strength and sensation. Psych: Normal affect. Test Results: EKG is sinus tach 105 with no acute changes. There is no old EKG for comparison. Repeat EKG is sinus at 79 with and is unchanged. Initial troponin is negative. Repeat troponin is negative. Chem-7 is more for BUN of 25, creatinine 1.67, glucose 132, and calcium of 10.4. CBC is marked for hemoglobin of 12.8 hematocrit 38.3. Chest x-ray is normal. Emergency Department Course and Treatment: Patient had an IV placed. He was given 5 mg of metoprolol IV and 50 mg p.o. He was given his home dose of Plavix and lisinopril p.o. He was given aspirin. Treatment Plan: Patient's pain is atypical it is been constant for greater than 3 hours with no change in his EKG or enzymes. I feel it is suitable candidate for further outpatient evaluation. He is asking for referral to a food and beverage manager here in town. He will be discharged with instructions to follow-up with Dr. Jean within a week for another exam. Return to the emergency department for any worsening symptoms. Disposition: To home in improved and stable condition. Impression: 1. Atypical chest pain. 2. JOCE score of 3. This note was generated with [employer] dictation software. It may contain incorrect words, spelling, and punctuation that were not noted in review of the chart prior to signing ED Disposition - Plan for ED Patient: Chief Complaint: Chest Pain Instructions: ED Chest Pain Atypical Unkn Cause Referrals: Debora Martinez MD [STAFF PHYSICIAN] - 1-2 Days if not improving Vito Jean MD [STAFF PHYSICIAN] - As soon as possible What to do if you have Problems For any increased pain, shortness of breath, bleeding, nausea or vomiting, chest pain, or any unexpected problems, contact your Primary Care Provider. Call [facility] ([phone]) or report to the closest Emergency Room. Call 911 if necessary. 12/28/17 1729 <Electronically signed by Yossi Dias MD> Date Yossi Dias MD Cosigner Signature (If Indicated): Date CC: THERESE STEELE TROPONIN-I Collected: 12/28/2017 Status: F Source: [place] 2:05 PM [facility] RE[facility] Order Comment: Comments: Should be drawn 3H after initial Troponin obtained TYPE CODE TESTS RESULT OUT OF RANGE REFERENCE UNITS LAB L501.4010 <0.045 ng/mL Normal < 0.015 TROPONIN-I Result Comment: TROPONIN-I EXPECTED VALUES <0.045 Negative 0.045 - 0.590 Consistent with Cardiac Damage > OR = 0.600 Critical Value Not every elevated troponin is indicative of OK. These values should be used with clinical judgement in examining the patient's clinical picture for diagnosis. To establish a diagnosis of OK versus myocardial injury, there must be a demonstrated rise and/or fall in the troponin values, in addition to ischemic symptoms, EKG changes, new regional wall motion abnormality, and/or angiographical evidence. PLEASE NOTE: REFERENCE RANGES EDITED 17 Performed By: #### L501.4010 #### [facility] [address] [place] [place], [address] CHEST 1 VIEW Observed: 12/28/2017 Status: F Source: [place] (PORTABLE) 11:00 AM [facility] RE[facility]IT[facility] Imaging Services [address] [facility] [place] [address] Chest 1 View (Portable) MR#: [id number] Acct: [id number] Name: LITZYFELICIANO Franki Rep #: [id number] : 1985 32 From: Abhi Galindo DO PCP: THERESE JOSEPH Status: REG ER Study: Chest 1 View (Portable) Date of Exam: 12/28/17 Exam# [id number] Ordering Dr: Yossi Dias MD STUDY: X-RAY CHEST REASON FOR EXAM: Male, 32 years old. Chest pain TECHNIQUE: Single AP portable view of the chest. COMPARISON: None. FINDINGS: Cardiac monitoring leads overlie the chest. The lungs are clear and expanded. There is no demonstrated pleural abnormality. Normal size heart. Normal mediastinum and eliana. Normal visualized pulmonary arteries. Normal visualized aortic arch and descending thoracic aorta. Normal visualized thoracic spine. Normal visualized ribs, clavicles, and shoulders. There is no demonstrated abnormality of the visualized soft tissue structures of the upper abdomen. RAD/Chest 1 View (Portable) IMPRESSION: Normal x-ray examination of the chest. Electronically Signed: Abhi GalindoDO at 11:45 EDT Tel , Service support , CC: THERESE STEELE; Yossi Dias MD Pediatric Acute Care Unit Nurse: Signed CBC W/DIFF, AUTOMATED Collected: 12/28/2017 Status: F Source: [place] 10:45 AM [facility] TYPE CODE TESTS RESULT OUT OF RANGE REFERENCE UNITS LAB L100.1000 4.4-11.0 K/mm3 Normal WBC 9.4 LAB L100.1200 4.6-6.2 M/mm3 Low RBC 4.41 LAB L100.1300 13.0-16.5 g/dl Low HGB 12.8 LAB L100.1400 40-54 % Low HCT 38.3 LAB L100.1500 80-94 fL Normal MCV 86.8 LAB L100.1600 27.0-32.0 pg Normal MCH 29.0 LAB L100.1700 32-36 g/gl Normal MCHC 33.4 LAB L100.1810 11.6-14.6 % Normal RDW CV 13.2 LAB L100.1820 35.1-43.9 fl Normal RDW SD 41.8 LAB L100.1900 150-450 K/mm3 Normal PLT 332 LAB L100.2000 6.2-12.0 fl Normal MPV 9.8 LAB L100.2100 47-70 % Normal NEUT% 59.1 LAB L100.2200 19-41 % Normal LY% 30.3 LAB L100.2300 0-10 % Normal MONO% 8.1 LAB L100.2400 0-5 % Normal EO% 1.9 LAB L100.2500 0-1 % Normal BASO% 0.4 LAB L100.2550 0.0-0.9 % Normal IM GRAN % 0.200 Result Comment: IG% - Immature Granulocytes (promyelocytes, myelocytes and metamyelocytes) > 1% indicates that a LEFT SHIFT is Present. LAB L100.2620 2.0-7.7 X10 3/uL Normal Absolute Neut 5.5 LAB L100.2720 0.83-4.51 X10 3/ul Normal Absolute Lymph 2.83 Performed By: #### L100.0100 #### [facility] [address] [place], [address] BASIC METABOLIC Collected: 12/28/2017 Status: F Source: [place] PROFILE (BMP) 10:45 AM [facility] REPOS[facility] TYPE CODE TESTS RESULT OUT OF RANGE REFERENCE UNITS LAB L501.0100 74-106 mg/dL High GLU 132 Result Comment: Fasting Glucose result greater than or equal to 126 mg/dL suggests DIABETES MELLITUS per A.D.A. criteria. Please note revised GLUCOSE reference range effective 2017. LAB L501.1000 7-18 mg/dL High BUN 25 LAB L501.1100 0.70-1.30 mg/dL High CREAT,SERUM 1.67 Result Comment: The validity of the calculated GFR AND GFRAA in patients over 70 years has not been determined. Clinical correlation is essential. LAB L501.1110 >60 mL/min Low EST GFR 51 Result Comment: Non- GFR Calc LAB L501.1115 >60 mL/min Normal EST GFR - AA 61 Result Comment: GFR Calc LAB L501.1255 ml/min Normal Estimated CRCL 63.50 LAB L501.1300 10-20 RATIO Normal BUN/CRE 15.0 LAB L501.2200 8.5-10 mg/dL High .1 CA 10.4 LAB L501.5300 136-14 mmol/L Normal 5 NA 136 LAB L501.5600 3.5-5. mmol/L Normal 1 K 4.2 LAB L501.5900 98-107 mmol/L Normal CL 104 LAB L501.6100 21.0-3 mmol/L Normal 2.0 CO2 23.0 LAB L501.6200 5-15 Normal GAP 9 Performed By: #### L500.2500, L501.4010 #### [facility] [address] [place], [address] TROPONIN-I Collected: 12/28/2017 Status: F Source: [place] 10:45 AM [facility]POS[facility] TYPE CODE TESTS RESULT OUT OF RANGE REFERENCE UNITS LAB L501.4010 <0.045 ng/mL Normal < 0.015 TROPONIN-I Result Comment: TROPONIN-I EXPECTED VALUES <0.045 Negative 0.045 - 0.590 Consistent with Cardiac Damage > OR = 0.600 Critical Value Not every elevated troponin is indicative of OK. These values should be used with clinical judgement in examining the patient's clinical picture for diagnosis. To establish a diagnosis of OK versus myocardial injury, there must be a demonstrated rise and/or fall in the troponin values, in addition to ischemic symptoms, EKG changes, new regional wall motion abnormality, and/or angiographical evidence. PLEASE NOTE: REFERENCE RANGES EDITED 17 Performed By: #### L500.2500, L501.4010 #### [facility] [address] [place] [place], [address] EMERGENCY DEPARTMENT Observed: 12/04/2017 Status: F Source: [place] SUMMARY 7:06 PM [facility] Medical Records Department [address] [place] [address] Emergency Department Summary 12/04/17 1804 MR#: [id number] Acct: [id number] Name: FELICIANO MCGHEE Rep #: [id number] : 1985 32 From: Alvaro Burton MD PCP: THERESE JOSEPH Status: REG ER History of Present Illness Chief Complaint: Back Informant: Patient Onset: Yesterday Context: Sudden Onset Timing: Continuous Quality: ache/sore Location: tailbone. radiates up into low back Current Severity: Moderate Maximum Severity: Moderate Worsened by: walking, sitting Relieved by: remaining still Associated Symptoms: no bowel or bladder dysfunction. no LE weakness or numbness. no abd pain Narrative: Patient states he slipped going down some steps, bounced his tailbone off 5 or 6 steps before he got to the end of the stair with case. Has been ambulatory without difficulty, here because of pain. Past Medical History - Allergies and Home Meds Allergies/Adverse Reactions: Allergies Penicillins [PCN] Adverse Reaction (Verified 06/11/13 11:36) Unknown Primary Care Physician: Oly Steele PA [Primary Care Provider] - Past Medical History: None Smoking Status: Current every day smoker Review of Systems All systems negative except as indicated Gastrointestinal: Denies: Abdominal pain, Nausea, Hematochezia Genitourinary: Denies: Hematuria Musculoskeletal: Reports: Back pain. Denies: Neck pain Skin: Denies: Rash, Wounds Neurological: Denies: Headache, Weakness, Parasthesia, Numbness Physical Exam Vital Signs/Narrative: Vital Signs 12/04/17 17:30 96.6 F L 101 H 16 149/92 H Inital Vital Signs reviewed: Yes General: Well nourished, Well developed, - - Well-appearing NAD Head: Normocephalic, Atraumatic Eyes: Perrl, EOMI ENT: Moist mucous membranes, No rhinorrhea Back: Normal Inspection, Spinal tenderness - Lower lumbar. No step-off. Also tender at coccyx without crepitance. Skin: Normal color, No rash. Negative for: Trauma Neurological: Alert, Oriented x3, Cranial nerves II-XII grossly intact, Normal Strength, Normal Sensation, Normal Gait Psychological: Normal affect Diagnostic/Tx/Re-eval Clinical Impression(s) from Imaging Studies Lumbar Spine X-Ray 12/04/17 18:03 IMPRESSION: No significant abnormality present. Electronically Signed: Aris Varela MD at 18:55 EDT , Service support , Sacrum and Coccyx X-Ray 12/04/17 18:03 IMPRESSION: No significant abnormality present. Electronically Signed: Aris Varela MD at 18:55 EDT , Service support , - Medical Decision Making X-rays are normal. Patient given an ice pack and naproxen. He is asking for something for pain. I reviewed his oars report. He gets regular narcotic prescriptions from his PCP, if he feels he needs narcotics for these bruises, I recommend that he follow-up with his PCP his narcotic prescriber. ED Disposition - Plan for ED Patient: Disposition: Home or Assisted Living Chief Complaint: Back Diagnosis: Coccyx contusion Instructions: ED Contusion Sacrum Coccyx Referrals: Oly Steele PA [Primary Care Provider] - 3-5 Days if not improving What to do if you have Problems For any increased pain, shortness of breath, bleeding, nausea or vomiting, chest pain, or any unexpected problems, contact your Primary Care Provider. Call [facility] ([phone]) or report to the closest Emergency Room. Call 911 if necessary. 12/04/17 1906 <Electronically signed by Alvaro Burton MD> Date Alvaro Burton MD Cosigner Signature (If Indicated): Date CC: THERESE STEELE SACRUM-COCCYX MIN 2 VIEWS Observed: 12/04/2017 Status: F Source: [place] 6:04 PM [facility] REPOSITORY [facility] Imaging Services [address] [place] [address] Sacrum-Coccyx min 2 Views MR#: [id number] Acct: [id number] Name: LITZYFELICIANO L Rep #: [id number] : 1985 [facility] From: Aris Varela MD PCP: THERESE JOSEPH Status: REG ER Study: Sacrum-Coccyx min 2 Views Date of Exam: 12/04/17 Exam# [id number] Ordering Dr: Alvaro Burton MD STUDY: X-RAY - SACRUM/COCCYX REASON FOR EXAM: Male, 32 years old. Fall down stairs. Low back and pelvic pain. TECHNIQUE: 3 view(s) of the sacrum and coccyx were obtained. COMPARISON: None. FINDINGS: Normal bilateral sacroiliac joints. Normal visualized sacral ala and fused sacral bodies. Normal sacrococcygeal junction with a normal angulation. Normal coccygeal segments. The presacral soft tissue structures are unremarkable. RAD/Sacrum-Coccyx min 2 Views IMPRESSION: No significant abnormality present. Electronically Signed: Aris Varela MD at 18:55 EDT , Service support , CC: THERESE BURTON MD Pediatric Acute Care Unit Nurse: Signed LUMBAR SPINE 2 OR 3 Observed: 12/04/2017 Status: F Source: [place] VIE[place] 6:04 PM [facility] Imaging Services [address] [place] [address] Lumbar Spine 2 or 3 Views MR#: [id number] Acct: [id number] Name: FELICIANO MCGHEE Rep #: [id number] : 1985 M 32 From: Aris Varela MD PCP: THERESE JOSEPH Status: REG ER Study: Lumbar Spine 2 or 3 Views Date of Exam: 12/04/17 Exam# [id number] Ordering Dr: Alvaro Burton MD STUDY: X-RAY - LUMBAR SPINE REASON FOR EXAM: Male, 32 years old. Fall. Back and pelvic pain. TECHNIQUE: 2 view(s) of the lumbar spine were obtained. COMPARISON: None FINDINGS: Normal lumbar lordosis. There is no substantial scoliosis. There is a normal alignment of the vertebrae. Normal vertebral bodies and endplates. Normal disc space heights. The soft tissue structures are unremarkable. RAD/Lumbar Spine 2 or 3 Views IMPRESSION: No significant abnormality present. Electronically Signed: Aris Varela MD at 18:55 EDT , Service support , CC: THERESE BURTON MD Pediatric Acute Care Unit Nurse: Signed EMERGENCY REPORT Observed: 07/02/2017 Status: F Source: [place] 8:07 AM [facility] EMERGENCY DEPARTMENT REPORT NAME NUMBER SEX AGE ADMIT DISC TYPE MED.RECORD# LITZY Doan [id number] M 32 06/20/17 06/20/17 Blayne [id number] ROOM:ER- DATE OF :1985 PHYSICIAN NO.:[id number] PHYSICIAN NAME:E-Sign: Dr. Willis Nieves D.O. PHYSICIAN:YOEL ALEGRIA [facility] PHYSICIAN: YOEL ALEGRIA HISTORY OF PRESENT ILLNESS: This is a 32-year-old white male with a history of coronary artery disease complaining of some left-sided chest pain that he has had off and on since yesterday. It has been intermittent. It will come and go. He does not really relate it to exertion. He has had some associated shortness of breath and lightheadedness. He states he is not really dizzy, just lightheaded. He is presently pain-free and feels pretty good. He does have a past medical history of previous myocardial infarction x2 that occurred about a year ago. He was seen at [facility] and had a stent placed. He was seeing Dr. Snow from Cardiology over there before she retired. The patient used to use a lot of cocaine and methamphetamine. He states he stopped doing all of that, but he still is a smoker. ALLERGIES: He is allergic to penicillin. REVIEW OF SYSTEMS: Positive chest pain. Positive short of breath. Positive dizziness. Negative for everything else. We did do a 10-point review of systems, and it is otherwise negative. The patient denies any abdominal pain, nausea, vomiting, diarrhea, or constipation. He denies any tachycardia or diaphoresis. He denies any cough or wheezing. He denies any headache or neck pain. He does admit to dizziness. Further review of systems is negative. PHYSICAL EXAMINATION: On examination, the patient is alert and oriented x3. He appears in no acute distress. He is pleasant and cooperative. HEENT: Head appears atraumatic. Pupils are equal and reactive to light. Red reflexes are intact bilaterally. Extraocular muscles are intact. Mouth: Mucous membranes are moist. No pharyngeal erythema. Neck is supple. Trachea is midline. No JVD or lymphadenopathy. No posterior cervical tenderness. Lungs are clear to auscultation in all lung barillas. No adventitious sounds are noted. Cardiovascular: Heart is a regular rate and rhythm without murmur. Abdomen is soft and nontender with normoactive bowel sounds x4 quadrants. No guarding or rigidity. No rebound. No palpable abdominal masses. Extremities: No edema or cyanosis. Peripheral pulses are intact. No motor or sensory deficits are noted. Hand ring packer are strong and symmetric. Skin is warm and dry. No diaphoresis or rash. DIAGNOSTIC DATA: EKG showed a normal sinus rhythm with no acute ST-segment changes. His bloodwork came back within normal limits. His troponin was less than 0.01. His sodium was 135, potassium 4.8, chloride 107, CO2 of 23.4, glucose 94, BUN 26, and creatinine 1.3. Electrolytes were all within normal limits. His chest x-ray showed no acute infiltrate or failure. Heart was a normal size. His CBC showed a white count of 7.5, hemoglobin 11.7, hematocrit 34.6, and platelet count 329,000. His lipase was normal at 51. EMERGENCY DEPARTMENT COURSE AND TREATMENT: I discussed the case with Dr. Gaitan. He looked up a stress test on this patient that was done at this hospital in October of 2016, which was negative. He felt we should discuss the case with the food and beverage manager over at [facility], who thought the patient might need a heart catheterization since he had the normal stress test. I did discuss the case with Dr. Blanco at [facility]. He did not feel this patient needed a heart catheterization. He recommended keeping the patient here for rule-out. I discussed this with the patient. The patient is refusing to be admitted. He has to do some time at the shelter today, and he wants to go back to his job tomorrow. He really says he cannot miss work tomorrow. I explained to him that with his history of EMERGENCY ROOM REPORT LITZY Doan [address] [place] [address] EMERGENCY DEPARTMENT REPORT NAME NUMBER SEX AGE ADMIT DISC TYPE MED.RECORD# LITZY Doan [id number] M 32 06/20/17 06/20/17 Kori.RMaren [id number] ROOM:ER-C DATE OF :1985 PHYSICIAN NO.:[id number] PHYSICIAN NAME:E-Sign: Dr. Willis Nieves D.O. PHYSICIAN:YOEL ALEGRIA FAMILY PHYSICIAN: YOEL ALEGRIA coronary artery disease, as young as he is, that he really needs to stay and get the stress test. I talked to Dr. Gaitan. He is fine with admitting this gentleman and ruling him out, but the patient is refusing. Since they probably will not take him back to shelter if I make him sign out against medical advice what I decided to do instead is we will get a second troponin. Since the patient is still pain-free here, if his second troponin is normal I will discharge him with the advice that he should be staying, but I will actually discharge him so he can go back to shelter and do his time there and then go to his job tomorrow. I did advise him, though, that if he has any more chest pain he absolutely needs to come back and stay, and he did verbalized understanding of this. The patient is very pleasant and cooperative so I am going to try to work with him on this even though I really feel with his history of coronary artery disease he needs to stay. Everyone agrees on that; he is just refusing, so we are going to try to medically clear him so he can go back to shelter and then start his job on Wednesday. DIAGNOSIS: Chest pain. D: Willis Nieves DO TD: 15:27 JOB #: [id number] Electronically signed by: E-Sign: Dr. Willis Nieves D.O. 07/02/17 08:07 Transcribed by: shakira 06/21/2017 08:29 EMERGENCY ROOM REPORT LITZY Doan 2 LITHIUM Collected: 06/28/2017 Status: F Source: [place] 4:30 AM [facility] REPOSITORY TYPE CODE TESTS RESULT OUT OF REFERENCE UNITS RANGE LAB LITHIUM(SARAH BETH 0.6 - 1.2 mmol/L NC) High LITHIUM 1.4 Performed By: #### [id number] #### [facility] [place] [address] LITHIUM Collected: 06/24/2017 Status: F Source: [place] 5:10 AM [facility] REPOSITORY TYPE CODE TESTS RESULT OUT OF REFERENCE UNITS RANGE LAB LITHIUM(SARAH BETH 0.6 - 1.2 mmol/L NC) High LITHIUM 1.9 Performed By: #### [id number] #### [facility],[address] [place] [address] TROPONIN Collected: 06/20/2017 Status: F Source: [place] 1:20 [facility] REPOSITORY TYPE CODE TESTS RESULT OUT OF REFERENCE UNITS RANGE LAB TROPONIN 0.00 - 0.05 ng/ml I(LOINC) TROPONIN I <0.01 Result Comment: Elevated troponin (above the 99th percentile) usually indicates myocardial ischemia. Results must be interpreted within the clinical setting. 1.Non-ischemic pathology can also cause elevated troponin levels (e.g., acute pulmonary embolism, myocarditis, pericarditis, heart failure, intracranial injury, rhabdomyolisis, sepsis, shock and renal insufficiency). 2.Approximately 1% of healthy adults have elevated troponin levels. 3.Analytical false positive results rarely occur(due to multiple interferences such as heterophile antibodies). Performed By: #### [id number] #### [facility],[address] [place] [address] CHEST AP Observed: 06/20/2017 Status: F Source: [facility] 10:30 AM [facility] REPOSITORY [place] [address] Patient: FELICIANO MCGHEE Phone#: : 1985 Age: 32 Gender: M Pt. Type: ER Account: [id number] Location: 052 Ordering: WILLIS NIEVES Exam Date: 06/20/2017/10:23 Family Phys: OLY STEELE Charge Code: 378377 Physician: [place] Order #: [id number] DLP Dose#: PROCEDURE: X-RAY CHEST AP 1 VIEW COMPARISON: [facility], XR, CHEST PA/LAT, 11/03/2016, 5:04. INDICATIONS: Chest pain FINDINGS: LUNGS: Normal. No significant pulmonary parenchymal abnormalities. VASCULATURE: Normal. Unremarkable pulmonary vasculature. CARDIAC: Normal. No cardiac silhouette abnormality or cardiomegaly. MEDIASTINUM: Normal. No visible mass or adenopathy. PLEURA: Normal. No effusion or pleural thickening. BONES: Degenerative changes of the spine. Previously visualized left rib fractures are not detectable on the current exam. OTHER: Monitoring lead projects across the thorax. CONCLUSION: No acute disease. Dictated by: Shellie Alvarez MD on 06/20/2017 at 17:28 Approved by: Shellie Alvarez MD on 06/20/2017 at 17:28 CBC Collected: 06/20/2017 Status: F Source: [place] 10:24 AM [facility] REPOSITORY TYPE CODE TESTS RESULT OUT OF RANGE REFERENCE UNITS LAB CBC(LOINC) CBC Result Comment: CBC-COMPLETE BLOOD COUNT LAB WBC(LOINC) 4.5 - 10.8 x 10EE3/UL WBC 7.5 LAB RBC(LOINC) 4.50 - x 10EE6/UL 6.00 RBC Low 4.01 LAB HEMOGLOBIN(LOINC) 13.0 - g/dl 17.5 Low HEMOGLOBIN 11.7 LAB HEMATOCRIT(LOINC) 40.0 - % 52.0 Low HEMATOCRIT 34.6 LAB MCV(LOINC) 81 - 98 fl MCV 86 LAB MCH(LOINC) 27 - 33 pg MCH 29 LAB MCHC(LOINC) 32 - 36 X10 3 MCHC 34 LAB RDW/CV(LOINC) 12.0 - % 15.6 RDW/CV 12.6 LAB PLATELET(LOINC) 150 - 450 x10EE3/UL PLATELET 329 LAB MPV(LOINC) 6.4 - 10.5 fl MPV 8.3 Result Comment: AUTOMATED DIFFERENTIAL LAB NEUT %(LOINC) 46.0 - 76.0 % NEUT % 58.3 LAB LYMPH %(LOINC) 20.0 - 45.0 % LYMPH % 28.5 LAB MONOS %(LOINC) 0.0 - 10.0 % MONOS % 7.6 LAB EO %(LOINC) 0.0 - 7.0 % EO % 5.0 LAB BASO %(LOINC) 0.0 - 2.0 % BASO % 0.6 LAB Lymph #(LOINC) 0.80 - 2.80 x10EE3/U L Lymph # 2.10 LAB Neut #(LOINC) 1.50 - 7.10 x10EE3/U L Neut # 4.40 LAB Carlton #(LOINC) 0.20 - 1.00 x10EE3/U L Carlton # 0.60 LAB EO #(LOINC) 0.00 - 0.50 x10EE3/U L EO # 0.40 LAB Baso #(LOINC) 0.00 - 0.10 x10EE3/U L Baso # 0.00 LAB MANUAL DIFF(LOINC) MANUAL DIFF N/A LAB MORPHOLOGY(LOINC ) MORPHOLOGY N/A Result Comment: {CD] Performed By: #### [id number] #### [place] [address] TROPONIN Collected: 06/20/2017 Status: F Source: [facility] 10:24 AM [facility] REPOSITORY TYPE CODE TESTS RESULT OUT OF REFERENCE UNITS RANGE LAB TROPONIN 0.00 - 0.05 ng/ml I([facility]) TROPONIN I <0.01 Result Comment: Elevated troponin (above the 99th percentile) usually indicates myocardial ischemia. Results must be interpreted within the clinical setting. 1.Non-ischemic pathology can also cause elevated troponin levels (e.g., acute pulmonary embolism, myocarditis, pericarditis, heart failure, intracranial injury, rhabdomyolisis, sepsis, shock and renal insufficiency). 2.Approximately 1% of healthy adults have elevated troponin levels. 3.Analytical false positive results rarely occur(due to multiple interferences such as heterophile antibodies). Performed By: #### [id number] #### [place] [address] CMP WITH EGFR Collected: 06/20/2017 Status: F Source: [facility] 10:24 AM [facility] REPOSITORY TYPE CODE TESTS RESULT OUT OF RANGE REFERENCE UNITS LAB CMP with eGFR([facility]) CMP with eGFR Result Comment: COMPREHENSIVE METABOLIC PANEL LAB SODIUM(LOINC) 136 - 145 mmol/l SODIUM Low 135 LAB POTASSIUM(LOINC) 3.5 - 5.1 mmol/L POTASSIUM 4.8 LAB CHLORIDE(LOINC) 98 - 107 mmol/L CHLORIDE 107 LAB CO2(LOINC) 21.0 - mmol/L 31.0 CO2 23.4 LAB GLUCOSE(LOINC) 74 - 106 mg/dl GLUCOSE 94 LAB BUN(LOINC) 6 - 20 mg/dl BUN High 26 LAB CREATININE(LOINC) 0.7 - 1.3 mg/dl CREATININE 1.3 LAB AST/SGOT(LOINC) 13 - 39 U/L AST/SGOT 20 LAB ALK PHOS(LOINC) 38 - 126 U/L ALK PHOS 60 LAB CALCIUM(LOINC) 8.6 - mg/dl 10.2 CALCIUM 9.5 LAB TOTAL 6.4 - 8.3 g/dl PROTEIN(LOINC) TOTAL PROTEIN 6.6 LAB ALBUMIN(LOINC) 3.4 - 4.8 g/dL ALBUMIN 4.0 LAB GLOBULIN(LOINC) 1.5 - 3.8 G/DL GLOBULIN 2.6 LAB A/G RATIO(LOINC) 0.9 - 1.6 A/G RATIO 1.5 LAB TOTAL BILI(LOINC) 0.0 - 1.5 mg/dl TOTAL BILI 0.3 LAB B/C RATIO(LOINC) 0 - 30 ratio B/C RATIO 20 LAB ALT/SGPT(LOINC) 10 - 40 U/L ALT/SGPT 25 LAB ANION GAP(LOINC) 10 - 20 mmol/L ANION Low GAP 9 LAB AGE(LOINC) years AGE 32 LAB eGFR(LOINC) 60 - 999 ML/MINUTE eGFR >60 LAB eGFR(AA)(LOINC) 60 - 999 ML/MINUTE eGFR(AA) >60 Result Comment: ACCORDING TO THE NATIONAL KIDNEY DISEASE EDUCATION PROGRAM(NKDE), A NORMAL eGFR IS A VALUE GREATER THAN OR EQUAL TO 60 ML/MIN/1.73 SQ METERS. CHRONIC KIDNEY DISEASE: <60mL/MIN/1.73 SQ METERS KIDNEY FAILURE: <15mL/MIN/1.73 SQ METERS THIS TEST SHOULD ONLY BE USED FOR PATIENTS 18 YEARS OF AGE AND OLDER. Performed By: #### [id number] #### [place] [id number] LIPASE Collected: 06/20/2017 Status: F Source: [facility] 10:24 AM [facility] REPOSITORY TYPE CODE TESTS RESULT OUT OF REFERENCE UNITS RANGE LAB LIPASE(LOIN 18.0 - 51.0 U/L C) LIPASE 51.0 Performed By: #### [id number] #### [place] [id number] ALLERGIES ALLERGIES DATE TYPE / CODE NAME / CODE REACTION SEVERITY SOURCE 05/27/2018 Drug Penicillins/[id number] Unknown Unknown [place] Allergy/416 0476(RXNORM) [facility] [id number]([facility] ED CT) Repository Drug PENICILLINS Moderate [facility] Allergy/416 (CLASS)/[id number](R ([facility] 534220([facility] Modifier) Hospital ED CT) (Qualifier Repository Value) ENCOUNTERS ENCOUNTERS ADMIT/DISCHARGE ACCOUNT ADMITTING ENCOUNTER LOCATION SOURCE NUMBER CLASS 05/27/2018/05/27/19 [id number] Emergency [address] ing:ED Repository 05/25/2018 [id number] Ambulatory [facility] ing:LAB Repository 03/23/2018/03/24/20 [id number] [facility], Ambulatory [address] ing:GB7Mcuf: Repository NX343Adp: 1 03/23/2018 [id number] [place], Ambulatory BMSBuilding:Adriana Hay MS.[facility] Repository 03/23/2018 [id number] [place], Ambulatory BMSBuilding:Adriana Hay MS.[facility] Repository 03/02/2018/03/03/20 [id number] Ambulatory [address] Repository 01/04/2018/01/05/20 [id number] Emergency [address] ing:ED Repository 12/28/2017/12/29/19 [id number] Emergency [address] ing:ED Repository 12/04/2017/12/05/19 [id number] Emergency [address] ing:ED Repository 08/05/2017/08/06/19 [id number] [place], [facility] Repository 06/28/2017/06/28/19 [id number] [facility] Repository 06/24/2017/06/24/19 [id number] [facility] 18 MSN,[facility] Repository 06/20/2017/06/20/19 [id number] WILLIS NIEVES Emergency Buildin[address] [place] [address] 18 DO oom: ERBed: [facility] Repository PAYERS PAYERS ENCOUNTER GUARANTOR PAYER SUBSCRIBER SOURCE 05/27/2018 FELICIANO [id number] [facility] JONE: [facility] Number: [id number] [id number] Repository [address]Zwe: (330) Date:6259-82-67KE [phone] () [id number] VAZQUEZ [address]KU: 05/27/2018 Secondary NOT GIVENUNK [place] Insurance:SELF PAY [facility] Number: Effective Repository Date:2018-05-27 05/25/2018 FELICIANO Doan Primary LUIZ Gini [place] [id number] Insurance:CIGNAPolicy CRIDERDOB: Community [place] Number: [id number] Road[place], [place] [id number] Repository [address]Nub: (330) Date:3636-17-00TW [phone] () 425996LEYRKFGUARG, [place] [address]BG: 05/25/2018 Secondary NOT GIVENUNK [place] Insurance:SELF PAY [facility] Number: Effective Repository Date:2018-05-25 03/23/2018 FELICIANO GARCIABREY Gini [place] [id number] Insurance:CIGNAPolicy CRIDERDOB: [facility] Number: [id number] Roads, [place] [id number] Repository [address]Fya: (330) Date:1590-18-13ZQ [phone] () [id number], [place] [address]OH: 03/23/2018 Secondary NOT GIVENUNK [place] Insurance:SELF PAY [facility] Number: Effective Repository Date:2018-03-23 03/23/2018 FELICIANO Doan Primary LUIZ Gini [place] [id number] Insurance:CIGNAPolicy CRIDERDOB: [facility] Number: [id number] Roads, [place] [id number] Repository [address]Lus: (330) Date:5062-80-66BV [phone] () [id number], [place] [address]KS: 03/23/2018 Secondary NOT GIVENUNK [place] Insurance:SELF PAY [facility] Number: Effective Repository Date:2018-03-23 03/23/2018 FELICIANO DEE J [place] [id number] Insurance:CIGNAPolicy CRIDERDOB: [facility] Number: [id number] Roads, [place] [id number] Repository [address]Mrn: (330) Date:9225-74-43SG [phone] (HP) 668387NRZHLIRKBGL, [place] [address]OS: 03/23/2018 Secondary NOT GIVENUNK [place] Insurance:SELF PAY [facility] Number: Effective Repository Date:2018-03-23 01/04/2018 FELICIANO Doan Primary Luiz Rubalcava [place] [id number] Insurance:CIGNAPolicy CriderDOB: [facility] Number: [id number] Roads, [place] [id number] Repository [address]Dte: (330) Date:8285-60-21QN [phone] () 390296FTSEDZMEMSI, [place] [address]HI: 01/04/2018 Secondary NOT GIVENUNK [place] Insurance:SELF PAY [facility] Number: Effective Repository Date:2018-01-04 12/28/2017 FELICIANO Doan Primary Luiz [place] [id number] Insurance:CIGNAPolicy CriderDOB: [facility] Number: [id number] Roads, [place] [id number] Repository [address]Lbo: (330) Date:9060-26-36ZY [phone] () 863131TZDZAOPKIDW, [place] [address]AF: 12/28/2017 Secondary NOT GIVENUNK [place] Insurance:SELF PAY [facility] Number: Effective Repository Date:2017-12-28 12/04/2017 FELICIANO Franki Primary Luiz [place] [id number] Insurance:CIGNAPolicy CriderDOB: [facility] Number: [id number] Roads, [place] [id number] Repository [address]Jng: (330) Date:6809-80-97IN [phone] () 472800QAAGGWABAXM, [place] [address]QT: 12/04/2017 Secondary NOT GIVENUNK [place] Insurance:SELF PAY [facility] Effective Repository Date:2017-12-04 06/28/2017 FELICIANO Doan Primary FELICIANOSANDI Ledesmamadison CRIDERDOB: Insurance:MEDICAID CRIDERDOB: [facility] [id number] [facility] [id number] [facility] [address] Number: [address] Repository [address] [place] [address] [id number] 253[place], [place] [id number]: Date:Plan Name:X1 [id number] () 06/20/2017 FELICIANO Doan Primary Insurance:BLUE LUIZKleber Lezama CRIDERDOB: [address] CRIDERDOB: [facility] [id number] [facility] [id number] [facility] [address] Number: [address], Repository [place], [place] [id number] [address] [id number]: Date:Plan Name:B2 ()
== END ==
LOC: LAB 11:52
PROVIDERS: Referring Provider Registered Nurse; Visit Provider Registered Nurse
DX: F31.9 Bipolar disorder, unspecified (principal); Z79.899 Other long term (current) drug therapy
CPT/HCPCS: 36415; 80053; 80178; 84443

== ENCOUNTER 2018-05-27 15:58 | Emergency (ER) | payer OTHER, SELFPAY ==
[2018-03-23 20:27] VITALS: BMI 29.9
[2018-05-27 15:59] VITALS: BP 158/95; PULSE 96; RESP 20; TEMP 36.6; O2SAT 99; BMI 31.0
[2018-05-27] MEDS: Orphenadrine 60 MG/2 ML Ampul IM (16:18)
[2018-05-27] MEDS: Ketorolac 60 MG/2 ML Vial IM (16:18)
[2018-05-27] MEDS: HYDROcodone Bitartrate/Apap 5/325 Tablet PO (16:18)
--- NOTE | 2018-05-27 16:28 | ED.DCSUM_ITS ---
- ER Visit Summary Date of Service: 05/27/18 Chief Complaint: Back pain History of Present Illness: The patient is a 33 M presents to the emergency department back pain. Patient has a history of hereditary spastic paraplegia. He walks with a limp. He states that because of that, he will get back pain fro m time to time. He is in pain management. States over the past week, he had worsening pain in his right low back that radiates down his right leg. He denies any problems with bowel or bladder. He denies any trauma. He denies any change in gait. He has taken ibuprofen with little improvement. Physical Examination: Afebrile, vitals unremarkable. Well-appearing female no acute distress. Head is normocephalic, atraumatic. Pupil's equal round reactive, extraocular muscles intact. Neck supple. Heart regular rate and rhythm. Lungs clear, chest nontender. Abdomen soft, nontender, nondistended. No pulsatile mass. Patient has paraspinal tenderness in the lumbar area, but no bony tenderness. Straight leg raise is negative bilaterally. 2+ symmetric lower extremity pulses. 2+ reflexes. No clonus. No weakness of dorsiflexion, plantar flexion, or extensor hallucis longus bilaterally. Test Results: [] Emergency Department Course and Treatment: The patient has no red flag symptoms. This does seem consistent with a peripheral radiculopathy. His pulses are normal. His reflexes are normal. His gait is stable. He was treated with IM medications. I did review his orders report. He has not had narcotic prescriptions since November which he was upfront about. He will be given 2 days of analgesics and antispasmodics. He was counseled on concerning symptoms. Patient will be discharged home. Treatment Plan: [] Disposition: Discharge Impression: Acute sciatica This note was generated with [employer] dictation software. It may contain incorrect words, spelling, and punctuation that were not noted in review of the chart prior to signing ED Disposition - Plan for ED Patient: Chief Complaint: Back Instructions: ED Sciatica Prescriptions: Hydrocodone Bitart/Apap 5-325 [[place] 5MG-325MG] 1 tab PO Q6H PRN PRN 2 Days #6 tab PRN Reason: Pain Naproxen [Naprosyn] 500 mg PO BID PRN #20 tab Cyclobenzaprine [Flexeril] 10 mg PO TID PRN #20 tab PRN Reason: Muscle Spasm Referrals: Care Physician,No Primary [Primary Care Provider] -
[2018-05-27 16:47] VITALS: BP 131/98; PULSE 87; RESP 16; TEMP 36.6; O2SAT 99
--- OUTSIDE RECORDS SUMMARY | 2018-08-01 08:02 | XMS RPT_ITS ---
:1985 Author Organization OHIP Support Name Relationship Address Phone SHANELL MCGHEE Unavailable [address] + [place] [address] LITZY, LUIZ Unavailable [address] + [place] [address] RAYCO Unavailable [address] + [place] [address] SHANELL MCGHEE Unavailable [address] + [place] [address] LITZY, LUIZ Unavailable [address] + [place] [address] RAYCO Unavailable [address] + [place] [address] [employer] Unavailable [address] + [address] [place] [address] SHANELL MCGHEE Unavailable [address] + [place] [address] LITZY, LUIZ Unavailable [address] + [place] [address] [employer] Unavailable [address] + [address] [place] [address] SHANELL MCGHEE Unavailable [address] + [place] [address] LITZY, LUIZ Unavailable [address] + [place] [address] [employer] Unavailable [address] + [address] [place] [address] SHANELL MCGHEE Unavailable [address] + [place] [address] LITZY, LUIZ Unavailable [address] + [place] [address] LITZYSHANELL FIGUEROA Unavailable [address] + [place] [address] LITZY, LUIZ Unavailable [address] + [place] [address] STAME Unavailable [address] [facility] + [place] [address] LITZYSHANELL FIGUEROA Unavailable [address] + [place] [address] LITZY, LUIZ Unavailable [address] + [place] [address] STAME Unavailable [address] + [place] [address] LITZYSHANELL FIGUEROA Unavailable [address] + [place] [address] LITZY, LUIZ Unavailable [address] + [place] [address] UE Unavailable Unavailable Unavailable LITZY, LUIZ Unavailable Unavailable + LITZY, LUIZ Unavailable [address] [place] [address] NOT GIVEN Unavailable Unavailable Unavailable LITZY, LUIZ Unavailable Unavailable + LITZY, LUIZ Unavailable [address] [place] [address] NOT GIVEN Unavailable Unavailable Unavailable LITZY, LUIZ Unavailable Unavailable + LITZY, LUIZ Unavailable [address] [place] [address] NOT GIVEN Unavailable Unavailable Unavailable LITZY, LUIZ Unavailable Unavailable + LITZY, LUIZ Unavailable [address] Unavailable [place] [address] NOT GIVEN Unavailable Unavailable Unavailable Care Team Providers Name Role Phone ALLAN, TERESA (MEMBERSHIP COORDINATOR) Attending Unavailable WILLIS NIEVES DO Admitting Unavailable WILLIS NIEVES DO Attending Unavailable OLY STEELE Referring Unavailable WILLIS NIEVES DO Primary Care Unavailable OLY STEELE Consulting Unavailable PROVIDER, UNKNOWN Consulting Unavailable WINIFRED RAMOS MSN,LINES TENDER-C Admitting Unavailable WINIFRED RAMOS MSN,LINES TENDER-C Attending Unavailable WINIFRED RAMOS MSN,LINES TENDER-C Primary Care Unavailable STEELE, OLY J Consulting Unavailable PROVIDER, UNKNOWN Consulting Unavailable WINIFRED RAMOS MSN,LINES TENDER-C Admitting Unavailable AMICONWINIFRED Sheikh MSN,LINES TENDER-C Attending Unavailable AMICONWINIFRED Sheikh MSN,LINES TENDER-C Primary Care Unavailable STEELE, OLY J Consulting Unavailable PROVIDER, UNKNOWN Consulting Unavailable STEELE, OLY J Admitting Unavailable STEELE, OLY J Attending Unavailable STEELE, OLY J Primary Care Unavailable STEELE, OLY J Consulting Unavailable PROVIDER, UNKNOWN Consulting Unavailable Ara Aguilar SERVICE INSPECTOR-C Attending Unavailable Ara Aguilar SERVICE INSPECTOR-C Referring Unavailable Primay Care Physicia, No Primary Care Unavailable Primay Care Physicia, No Primary Care Unavailable Isai Ivory Attending Unavailable STEELE, OLY Primary Care Unavailable ALVARO BURTON Attending Unavailable STEELE, OLY Primary Care Unavailable KannanYossi Attending Unavailable STEELE, OLY Primary Care Unavailable KannanYossi Attending Unavailable Kannan, Yossi Referring Unavailable Primay Care Physicia, No Primary Care Unavailable Sreekanthyedarcyg, Satnam Admitting Unavailable Agyepong, Satnam Referring Unavailable Ishan Couch Attending Unavailable Agyepong, Satnam Admitting Unavailable Agyepong, Satnam Attending Unavailable Agyepong, Satnam Referring Unavailable Primay Care Physicia, No Primary Care Unavailable AgyepongSatnam Consulting Unavailable Agyepong, Satnam Admitting Unavailable JoIshan shaver Attending Unavailable Agyepong, Satnam Referring Unavailable Primay Care Physicia, No Primary Care Unavailable Jochhaya, Ishan Consulting Unavailable PROBLEMS PROBLEMS DATE TYPE CONDITION / CODE ATTENDING STATUS SOURCE 05/27/2018 Unknown S74.00XA - Injury Isai Ivory Active [place] [facility] level, Repository unspecified leg, initial encounter / S74.00XA(ICD-10) 05/25/2018 Unknown F31.9 - Bipolar Jeff, Active [place] disorder, Ara SERVICE INSPECTOR-C Community unspecified / Hospital F31.9(ICD-10) Repository 05/25/2018 Unknown Z79.899 - Other Jeff, Active [place] [employer] Ara SERVICE INSPECTOR-C Community (current) drug Hospital therapy / Repository Z79.899(ICD-10) PROCEDURES PROCEDURES No Procedure Records FoundRESULTS RESULTS EMERGENCY DEPARTMENT Observed: 05/27/2018 Status: F Source: BRITTANY SUMMARY 4:48 PM [facility] Medical Records Department [address] [place] [address] Emergency Department Summary 05/27/18 1627 MR#: [id number] Acct: [id number] Name: FELICIANO MCGHEE Rep #: [id number] : 1985 33 From: Isai Ivory MD [...] Acute sciatica This note was generated with [employer] software. It may contain incorrect words, spelling, and punctuation that were not noted in review of the chart prior to signing ED Disposition - Plan for ED Patient: Chief Complaint: Back Instructions: ED Sciatica Prescriptions: Hydrocodone Bitart/Apap 5-325 [[place] 5MG-325MG] 1 tab PO Q6H PRN PRN [...] your Primary Care Provider. Call [facility] ([phone]) or report to the closest Emergency Room. Call 911 if necessary. 05/27/18 9154 <Electronically signed by Isai Ivory MD> Date Isai Ivory MD Cosigner Signature (If Indicated): Date CC: No Primary Care Physician LITHIUM Collected: 05/25/2018 Status: F Source: BRITTANY 12:01 PM [facility] REPOSITORY Order Comment: Date of Last Dose: 05/24/18 Time of Last Dose: 2129 TYPE CODE TESTS RESULT OUT OF RANGE REFERENCE UNITS LAB L501.9060 0.60-1.20 mmol/L Low LI 0.40 Performed By: #### L501.9060 #### [facility] [address] [place], [address] COMPREHENSIVE METABOLIC Collected: 05/25/2018 Status: F Source: BRITTANY PICHARDO 12:01 PM [facility] REPOSITORY TYPE CODE TESTS RESULT OUT OF [...] 8 Performed By: #### L500.4050, L501.9520 #### [facility] [address] [place], [place], [id number] THYROID STIM HORMONE Collected: 05/25/2018 Status: F Source: BRITTANY (TSH) 12:01 PM [facility] REPOSITORY TYPE CODE TESTS RESULT OUT OF RANGE REFERENCE UNITS LAB L501.9520 0.358-3.74 uIU/mL Normal TSH 1.35 Performed By: #### L500.4050, L501.9520 #### [facility] [address] [place], [address] BASIC METABOLIC Collected: 03/24/2018 Status: F Source: BRITTANY PROFILE (BMP) 12:30 PM [facility] REPOSITORY TYPE CODE TESTS RESULT OUT OF [...] GAP 4 Performed By: #### L500.2500 #### [facility] [address] [place], [address] DISCHARGE SUMMARY Observed: 03/24/2018 Status: F Source: BRITTANY 10:38 AM [facility] REPOSITORY [facility] Medical Records Department [address] [place] [address] Discharge Summary 03/24/18 1036 MR#: [id number] Acct: [id number] Name: FELICIANO MCGHEE Rep #: [id number] : 1985 33 From: Ishan Couch DO PCP: Care Physician, No Primary Status: ADM JENY Y Location: [place] 399002-1 Discharge Date and Diagnosis - Problem List [...] a combination of prerenal and ATN. Patient's columnist is resolved and patient is well. We [...] Nanocrystallized [Fenofibrate] 145 mg PO DAILY 12/04/17 [place] Carbonate 150 mg PO QHS 12/04/17 Metoprolol [...] applicable Code Visit OBSV E AND M: 16415 Observation care discharge 03/24/18 1038 <Electronically signed by Ishan Couch DO> Date Ishan Couch DO Cosigner Signature (if applicable): Date CC: No Primary Care Physician; Ishan Jopperi DO Signed DISCHARGE INSTRUCTION Observed: 03/24/2018 Status: F Source: BRITTANY 10:35 AM [facility] REPOSITORY [facility] Medical Records Department [address] [place] [address] Instructions for Home/Discharge Instructions 03/24/18 1033 MR#: [id number] Acct: [id number] Name: FELICIANO MCGHEE Rep #: [id number] : 1985 33 From: Ishan Couch DO [...] Nanocrystallized [Fenofibrate] 145 mg PO DAILY 12/04/17 [place] Carbonate 150 mg PO QHS 12/04/17 Metoprolol [...] Source: BRITTANY 5:12 AM [facility] REPOSITORY TYPE CODE TESTS RESULT OUT OF [...] Lymph 2.75 Performed By: #### L100.0100 #### [facility] [address] [place], [address] BASIC METABOLIC Collected: 03/24/2018 Status: F Source: BRITTANY PROFILE (BMP) 5:12 AM [facility] REPOSITORY TYPE CODE TESTS RESULT OUT OF [...] GAP 8 Performed By: #### L500.2500 #### [facility] [address] [place], [address] HISTORY AND PHYSICAL Observed: 03/24/2018 Status: F Source: BRITTANY EXAM 1:59 AM [facility] REPOSITORY [facility] Medical Records Department [address] [place] [address] History and Physical 03/23/181999 MR#: [id number] Acct: [id number] Name: FELICIANO MCGHEE Rep #: [id number] : 1985 33 From: Satnam Chappell MD PCP: Care Physician, No Primary Status: ADM JENY Y Location: MS3 [id number] Problem List (1) Gastroenteritis Status: Acute (2) Acute kidney injury Status: Acute History of Present Illness Date of Admission: 03/23/18 Chief Complaint: Abdominal pain, nausea and vomiting. The patient is a 33 year old M with a significant history of hereditary spastic paraplegia',bipolar disorder, KS status post stent, hypertension who presented with [...] (Last Updated 03/23/18 @ 20:24 by Satnam Cahppell MD) Gastroenteritis (Acute) Acute kidney injury (Acute) The patient is a 33 year old M with a significant history of hereditary spastic paraplegia, bipolar disorder, KS status post stent, hypertension who presented with [...] day. Counselled NicoDerm patch 14 mg ordered. KS with stent Dual antiplatelet therapy with aspirin and Plavix continued. Consider high intensity statin. Hypertension Blood pressure within goal at admission. Lisinopril held due to AK I Continue metoprolol. Parameters for holding placed. As needed labetalol. Bipolar disorder/depression Wellbutrin lithium, Seroquel and Zyprexa continued. DVT prophylaxis Subcutaneous heparin. Code Visit OBSV E AND M: 62148 Initial observation care L3 03/24/18 0159 <Electronically signed by Satnam Chappell MD> Date Satnam Chappell MD Cosigner Signature: Date (if applicable) CC: No Primary Care Physician; Satnam Chappell MD Signed URINE SODIUM Collected: 03/23/2018 Status: F Source: COY 9:02 PM [facility] REPOSITORY TYPE CODE TESTS RESULT OUT OF RANGE REFERENCE UNITS LAB L501.5500 Not Establ. mmol/L Normal UR NA 82 Performed By: #### L501.5500 #### [facility] [address] [place], [place], [address] CREATININE, URINE Collected: 03/23/2018 Status: F Source: COY 9:02 PM [facility] REPOSITORY TYPE CODE TESTS RESULT OUT OF RANGE REFERENCE UNITS LAB L502.0300 NO RANGE EST. mg/dL Normal URINE 75.70 CREAT Performed By: #### L502.0300 #### [facility] [address] [place], [address] Observed: 03/23/2018 Status: F Source: COY ENTERIC PATHOGEN 9:02 PM [facility] PANEL STOOL REPOSITORY Order Date: 03/23/18 EP [...] Not Detected Performed By: #### M100.637 #### [facility] [address] [facility] [place], [address] EMERGENCY DEPARTMENT Observed: 03/23/2018 Status: F Source: COY SUMMARY 6:58 PM [facility] REPOSITORY [facility] Medical Records Department [address] [place] [address] Emergency Department Summary 03/23/18 1856 MR#: [id number] Acct: [id number] Name: FELICIANO MCGHEE Rep #: [id number] : 1985 33 From: Handy Melton DO [...] Dehydration Gastroenteritis] This note was generated with S[employer] software. It may contain incorrect words, spelling, [...] your Primary Care Provider. Call [facility] ([phone]) or report to the closest Emergency Room. Call 911 if necessary. 03/23/18 7848 <Electronically signed by Handy Melton DO> Date Handy Melton DO Cosigner Signature (If Indicated): Date CC: No Primary Care Physician LACTIC ACID Collected: 03/23/2018 Status: F Source: BRITTANY 5:35 PM [facility] REPOSITORY Order Comment: Yes/No query for Sepsis Lactate Rule Y TYPE CODE TESTS RESULT OUT OF REFERENCE UNITS RANGE LAB L503.6005 0.4-2.0 mmol/L Low LACTIC ACID 0.2 Performed By: #### L503.6005 #### [facility] [address] [place], [place], [address] CBC W/DIFF, AUTOMATED Collected: 03/23/2018 Status: F Source: BRITTANY 5:07 PM [facility] REPOSITORY TYPE CODE TESTS RESULT OUT OF [...] Lymph 2.60 Performed By: #### L100.0100 #### [facility] [address] [place], [address] COMPREHENSIVE METABOLIC Collected: 03/23/2018 Status: F Source: BRITTANY PICHARDO 5:07 PM [facility] REPOSITORY TYPE CODE TESTS RESULT OUT OF [...] GAP 9 Performed By: #### L500.4050 #### [facility] [address] [place], [address] PROGRESS Observed: 03/02/2018 Status: COMPLETED Source: [place] 1:09 PM [facility] REPOSITORY HNO ID: [id number] Author: Teresa Hutton) Older Service: (none) Author Type: Nurse Practitioner Type: Progress Notes Filed: 03/02/2018 1:22 PM Note Text: CC: Patient presents with: Physical: forms completed [facility] Feliciano Mcghee is a 33 year old male who presents today for return to work clearance. Patient recently started job at [employer] about 3 weeks ago. He has a [...] secondary to HSP. Patient is new to [facility], moved to [facility] recently. Previous PCP was Oly Steele with [facility]. Requesting referral to neurology at [facility] for HSP. History of bipolar disorder and KS. Bipolar medications prescribed by psychiatrist and heart medications prescriptions prescribed his chancellor. Denies any issues with medications. REVIEW OF SYSTEMS See HPI PAST MEDICAL HISTORY Diagnosis Date - Bipolar affective disorder, currently active ([facility]) 03/02/2018 - Hereditary spastic paraplegia (HCC) 03/02/2018 [...] tablet by mouth once daily. Prescribed by chancellor venlafaxine ER (EFFEXOR XR) 75 mg 24 [...] Reviewed job description provided in letter from [employer]. 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 Bipolar affective [...] ROSSY LuxOV Observed: 03/02/2018 Status: COMPLETED Source: [place] 11:20 AM [facility] REPOSITORY Office Visit (INTMWS) LITZYFELICIANO ([id number]) 1985 M Date Time Provider Department 03/02/18 11:20 AM TERESA LEMUS ([place]ICA) INTMWS During your visit today, we recorded the following information about you: Temperature Pulse Respiration Blood pressure 96.2 degrees 74/minute 14/minute 130/80 Weight Height 96.6 kg 1.778 m Teresa Lemus APRN.CNP 03/02/2018 1:22 PM Signed CC: Patient presents with: Physical: forms completed [facility] Feliciano Goodrichder is a 33 year old male who presents today for return to work clearance. Patient recently started job at [employer] about 3 weeks ago. He has a [...] secondary to HSP. Patient is new to [facility], moved to [facility] recently. Previous PCP was Oly Steele with [facility]. Requesting referral to neurology at [facility] for HSP. History of bipolar disorder and KS. Bipolar medications prescribed by psychiatrist and heart medications prescriptions prescribed his chancellor. Denies any issues with medications. REVIEW OF SYSTEMS See HPI PAST MEDICAL HISTORY Diagnosis Date - Bipolar affective disorder, currently active ([facility]) 03/02/2018 - Hereditary spastic paraplegia ([facility]) 03/02/2018 - Past history of myocardial infarction [...] tablet by mouth once daily. Prescribed by chancellor venlafaxine ER (EFFEXOR XR) 75 mg 24 [...] Reviewed job description provided in letter from [employer]. 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 Bipolar affective [...] options, medications and coordinating care. Teresa Lemus, RADHA.MEMBERSHIP COORDINATOR Referring Provider: SELF [200] Allergies As of Date: 03/02/2018 Noted Allergy Reaction PENICILLIN 03/02/2018 16 - Unknown Date Reviewed: 03/02/2018 Reviewed by: Giselle Crowley Racecar Driver - Fully Assessed Reason for Visit: Physical [83] Cmt: forms completed Primary Visit Diagnosis:Hereditary spastic paraplegia (HCC) [G11.4] Other Visit Diagnoses:Past history of myocardial infarction [I25.2] Bipolar affective disorder, current episode depressed, current episode severity unspecified (HCC) [F31.30] Order(s):CONSULT TO NEUROLOGY [9019] Order #: [id number]: 1 busPIRone (BUSPAR) 10 mg tabletTake 1 [...] tablet by mouth once daily. Prescribed by chancellor VENLAFAXINE ER 75 MG CAPSULE,EXTENDE* 03/02/2018 Class: [...] Provider Letter Text Department of Internal Medicine [address] [address] 03/02/2018 Feliciano Mcghee [facility]# [id number] [address] [facility] [address] TO WHOM IT MAY CONCERN: This is to certify that Mr. Feliciano Mcghee was seen today in the office and was unable to work 03/01/18 and 03/02/18 Sincerely yours, Teresa Lemus APRN.MEMBERSHIP COORDINATOR Encounter Status:Closed by TERESA LEMUS CNP on 03/02/18 12 LEAD ELECTROCARDIOGRAM Observed: 01/06/2018 Status: F Source: BRTITANY 1:22 PM [facility] REPOSITORY [facility] Cardiovascular Services [address] [place] [address] 12 Lead EKG 01/04/18 1626 MR#: [id number] Acct: [id number] Name: FELICIANO MCGHEE Rep #: [id number] : 1985 32 From: Vito Jean MD [...] leads) Confirmed by MIRANDA MILLS, VITO ([id number]), associate editor AARON JERNIGAN ([id number]) on 01/06/2018 1:22:28 PM Referred By: Yossi Dias Confirmed By:VITO JEAN MD 01/06/18 1322 Date Vito Jean MD CC: THERESE STEELE; Yossi Dias MD Signed EMERGENCY DEPARTMENT Observed: 01/05/2018 Status: F Source: BRITTANY SUMMARY 1:43 AM [facility] REPOSITORY [facility] Medical Records Department [address] [place] [address] Emergency Department Summary 01/04/18 1750 MR#: [id number] Acct: [id number] Name: FELICIANO MCGHEE Rep #: [id number] : 1985 32 From: Yossi Dias MD [...] 4. Cephalgia. This note was generated with [employer] dictation software. It may contain incorrect words, [...] your Primary Care Provider. Call [facility] ([phone]) or report to the closest Emergency Room. Call 911 if necessary. 01/05/18 0143 <Electronically signed by Yossi Dias MD> Date Yossi Dias MD Cosigner Signature (If Indicated): Date CC: THERESE STEELE CHEST PA AND LATERAL Observed: 01/04/2018 Status: F Source: COY 4:44 PM [facility] REPOSITORY [facility] Imaging Services [address] [place] [address] Chest PA and Lateral MR#: [id number] Acct: [id number] Name: FELICIANO MCGHEE Rep #: [id number] : 1985 M 32 From: Carrillo Pimentel MD PCP: THERESE JOSEPH Status: REG ER Study: Chest PA and Lateral Date of Exam: 01/04/18 Exam# [id number] Ordering Dr: Yossi Dias MD STUDY: X-RAY [...] , CC: THERESE STEELE; Yossi Dias MD Patternator: Signed CBC W/DIFF, AUTOMATED Collected: 01/04/2018 Status: F Source: COY 4:35 PM [facility] REPOSITORY TYPE CODE TESTS RESULT OUT OF [...] Lymph 2.55 Performed By: #### L100.0100 #### [facility] [address] [place], [address] BASIC METABOLIC Collected: 01/04/2018 Status: F Source: COY PROFILE ([facility]) 4:35 PM [facility] REPOSITORY TYPE CODE TESTS RESULT OUT OF [...] 8 Performed By: #### L500.2500, L501.4010 #### [facility] [address] [place], [address] TROPONIN-I Collected: 01/04/2018 Status: F Source: COY 4:35 PM [facility] REPOSITORY TYPE CODE TESTS RESULT OUT OF RANGE REFERENCE UNITS LAB L501.4010 <0.045 ng/mL Normal < 0.015 TROPONIN-I Result Comment: TROPONIN-I EXPECTED VALUES <0.045 Negative 0.045 - 0.590 Consistent with Cardiac Damage > OR = 0.600 Critical Value Not every elevated troponin is indicative of KS. These values should be used with clinical judgement in examining the patient's clinical picture for diagnosis. To establish a diagnosis of KS versus myocardial injury, there must be a demonstrated rise and/or fall in the troponin values, in addition to ischemic symptoms, EKG changes, new regional wall motion abnormality, and/or angiographical evidence. PLEASE NOTE: REFERENCE RANGES EDITED 17 Performed By: #### L500.2500, L501.4010 #### [facility] [address] [place], [address] 12 LEAD ELECTROCARDIOGRAM Observed: 12/31/2017 Status: F Source: COY 1:22 PM [facility] REPOSITORY [facility] Cardiovascular Services [address] [place] [address] 12 Lead EKG 12/28/17 1041 MR#: [id number] Acct: [id number] Name: FELICIANO MCGHEE Rep #: [id number] : 1985 32 From: Nils Hickman MD [...] ECG Confirmed by NILS HICKMAN MD ([id number]), associate editor AARON JERNIGAN ([id number]) on 12/31/2017 1:21:29 PM Referred By: MORRIS Confirmed By:NILS HICKMAN MD 12/31/171320 Date Nils Hickman MD CC: THERESE STEELE; Yossi Dias MD Signed 12 LEAD ELECTROCARDIOGRAM Observed: 12/31/2017 Status: F Source: BRITTANY 1:22 PM [facility] REPOSITORY [facility] Cardiovascular Services [address] [place] [address] 12 Lead EKG 12/28/17 1211 MR#: [id number] Acct: [id number] Name: FELICIANO MCGHEE Rep #: [id number] : 1985 32 From: Nils Hickman MD [...] ECG Confirmed by NILS HICKMAN MD ([id number]), associate editor AARON JERNIGAN ([id number]) on 12/31/2017 1:21:44 PM Referred By: KANNAN Confirmed By:NILS HICKMAN MD 12/31/171320 Date Nils Hickman MD CC: THERESE STEELE; Yossi Dias MD Signed EMERGENCY DEPARTMENT Observed: 12/28/2017 Status: F Source: BRITTANY SUMMARY 5:29 PM [facility] REPOSITORY [facility] Medical Records Department [address] [place] [address] Emergency Department Summary 12/28/17 1227 MR#: [id number] Acct: [id number] Name: FELICIANO MCGHEE Rep #: [id number] : 1985 32 From: Yossi Dias MD PCP: THERESE JOSEPH Status: DEP ER - ER Visit Summary Date of Service: 12/28/17 Chief Complaint: Chest pain History of Present Illness: The patient is a 32 M whose primary care physician is Dr. Steele and his chancellor is Dr. Edy Kasper. Reports she has [...] He is asking for referral to a chancellor here in town. He will be discharged with instructions to follow-up with Dr. Jean within a week for another exam. Return to the emergency department for any worsening symptoms. Disposition: To home in improved and stable condition. Impression: 1. Atypical chest pain. 2. JOCE score of 3. This note was generated with [employer] dictation software. It may contain incorrect words, [...] your Primary Care Provider. Call Doctors Registry ([phone]) or report to the closest Emergency Room. Call 911 if necessary. 12/28/17 1729 <Electronically signed by Yossi Dias MD> Date Yossi Dias MD Cosigner Signature (If Indicated): Date CC: THERESE STEELE TROPONIN-I Collected: 12/28/2017 Status: F Source: BRITTANY 2:05 PM [facility] REPOSITORY Order Comment: Comments: Should be drawn 3H after initial Troponin obtained TYPE CODE TESTS RESULT OUT OF RANGE REFERENCE UNITS LAB L501.4010 <0.045 ng/mL Normal < 0.015 TROPONIN-I Result Comment: TROPONIN-I EXPECTED VALUES <0.045 Negative 0.045 - 0.590 Consistent with Cardiac Damage > OR = 0.600 Critical Value Not every elevated troponin is indicative of KS. These values should be used with clinical judgement in examining the patient's clinical picture for diagnosis. To establish a diagnosis of KS versus myocardial injury, there must be a demonstrated rise and/or fall in the troponin values, in addition to ischemic symptoms, EKG changes, new regional wall motion abnormality, and/or angiographical evidence. PLEASE NOTE: REFERENCE RANGES EDITED 17 Performed By: #### L501.4010 #### [facility] [address] [place], [address] CHEST 1 VIEW Observed: 12/28/2017 Status: F Source: COY (PORTABLE) 11:00 AM [facility] REPOSITORY [facility] Imaging Services [address] [place] [address] Chest 1 View (Portable) MR#: [id number] Acct: [id number] Name: LITZYFELICIANO Franki Rep #: [id number] : 1985 32 From: Abhi Galindo DO PCP: THERESE JOSEPH Status: REG ER Study: Chest 1 View (Portable) Date of Exam: 12/28/17 Exam# [id number] Ordering Dr: Yossi Dias MD STUDY: X-RAY [...] , CC: THERESE STEELE; Yossi Dias MD Patternator: Signed CBC W/DIFF, AUTOMATED Collected: 12/28/2017 Status: F Source: BRITTANY 10:45 AM [facility] REPOSITORY TYPE CODE TESTS RESULT OUT OF [...] Lymph 2.83 Performed By: #### L100.0100 #### [facility] [address] [place], [address] BASIC METABOLIC Collected: 12/28/2017 Status: F Source: BRITTANY PROFILE (BMP) 10:45 AM [facility] REPOSITORY TYPE CODE TESTS RESULT OUT OF [...] 9 Performed By: #### L500.2500, L501.4010 #### [facility] [address] [place], [address] TROPONIN-I Collected: 12/28/2017 Status: F Source: BRITTANY 10:45 AM [facility] REPOSITORY TYPE CODE TESTS RESULT OUT OF RANGE REFERENCE UNITS LAB L501.4010 <0.045 ng/mL Normal < 0.015 TROPONIN-I Result Comment: TROPONIN-I EXPECTED VALUES <0.045 Negative 0.045 - 0.590 Consistent with Cardiac Damage > OR = 0.600 Critical Value Not every elevated troponin is indicative of KS. These values should be used with clinical judgement in examining the patient's clinical picture for diagnosis. To establish a diagnosis of KS versus myocardial injury, there must be a demonstrated rise and/or fall in the troponin values, in addition to ischemic symptoms, EKG changes, new regional wall motion abnormality, and/or angiographical evidence. PLEASE NOTE: REFERENCE RANGES EDITED 17 Performed By: #### L500.2500, L501.4010 #### [facility] [address] [place], [address] EMERGENCY DEPARTMENT Observed: 12/04/2017 Status: F Source: COY SUMMARY 7:06 PM [facility] REPOSITORY [facility] Medical Records Department [address] [place] [address] Emergency Department Summary 12/04/17 1804 MR#: [id number] Acct: [id number] Name: FELICIANO MCGHEE Rep #: [id number] : 1985 32 From: Alvaro Burton MD [...] problems, contact your Primary Care Provider. Call [facility] ([phone]) or report to the closest Emergency Room. Call 911 if necessary. 12/04/17 1906 <Electronically signed by Alvaro Burton MD> Date Alvaro Burton MD Cosigner Signature (If Indicated): Date CC: THERESE STEELE SACRUM-COCCYX MIN 2 VIEWS Observed: 12/04/2017 Status: F Source: COY 6:04 PM [facility] REPOSITORY [facility] Imaging Services [address] [place] [address] Sacrum-Coccyx min 2 Views MR#: [id number] Acct: [id number] Name: LITZYFELICIANO L Rep #: [id number] : 1985 [facility] From: Aris Varela MD PCP: THERESE JOSEPH Status: REG ER Study: Sacrum-Coccyx min 2 Views Date of Exam: 12/04/17 Exam# [id number] Ordering Dr: Alvaro Burton MD STUDY: X-RAY [...] Service support , CC: THERESE BURTON MD Patternator: Signed LUMBAR SPINE 2 OR 3 Observed: 12/04/2017 Status: F Source: BRITTANY VIEWS 6:04 PM [facility] Imaging Services [address] [place] [address] Lumbar Spine 2 or 3 Views MR#: [id number] Acct: [id number] Name: FELICIANO MCGHEE Rep #: [id number] : 1985 M 32 From: Aris Varela MD PCP: THERESE JOSEPH Status: REG ER Study: Lumbar Spine 2 or 3 Views Date of Exam: 12/04/17 Exam# [id number] Ordering Dr: Alvaro Burton MD STUDY: X-RAY [...] Service support , CC: THERESE BURTON MD Patternator: Signed EMERGENCY REPORT Observed: 07/02/2017 Status: F Source: EMMANUEL LEZAMA 8:07 AM [facility] EMERGENCY DEPARTMENT REPORT NAME NUMBER SEX AGE ADMIT DISC TYPE MED.RECORD# LITZY Doan [id number] M 32 06/20/17 06/20/17 [place] [id number] ROOM:ER- DATE OF :1985 PHYSICIAN NO.:[id number] PHYSICIAN NAME:E-Sign: Dr. Willis Nieves D.O. PHYSICIAN:YOEL ALEGRIA [facility] PHYSICIAN: YOEL ALEGRIA HISTORY OF PRESENT [...] a year ago. He was seen at [facility] and had a stent placed. He was [...] motor or sensory deficits are noted. Hand bell attendant are strong and symmetric. Skin is warm [...] we should discuss the case with the chancellor over at [facility], who thought the patient might need a heart catheterization since he had the normal stress test. I did discuss the case with Dr. Blanco at [facility]. He did not feel this patient needed a heart catheterization. He recommended keeping the patient here for rule-out. I discussed this with the patient. The patient is refusing to be admitted. He has to do some [facility] the [facility] today, and he wants to go back to his job tomorrow. He really says he cannot miss work tomorrow. I explained to him that with his history of EMERGENCY ROOM REPORT LITZY Doan [address] [place] [address] EMERGENCY DEPARTMENT REPORT NAME NUMBER SEX AGE ADMIT DISC TYPE MED.RECORD# LITZY Doan [id number] M 32 06/20/17 06/20/17 [place].RMaren [id number] ROOM:ER-C DATE OF :1985 PHYSICIAN NO.:[id number] PHYSICIAN NAME:E-Sign: Dr. Willis Nieves D.O. PHYSICIAN:YOEL ALEGRIA FAMILY PHYSICIAN: YOEL ALEGRIA coronary artery disease, as young as he is, that he really needs to stay and get the stress test. I talked to Dr. Gaitan. He is fine with admitting this gentleman and ruling him out, but the patient is refusing. Since they probably will not take him back to penitentiary if I make him sign out against medical advice what I decided to do instead is we will get a second troponin. Since the patient is still pain-free here, if his second troponin is normal I will discharge him with the advice that he should be staying, but I will actually discharge him so he can go back to penitentiary and do his time there and then [...] him so he can go back to penitentiary and then start his job on Wednesday. DIAGNOSIS: Chest pain. D: Willis Nieves DO TD: 15:27 JOB #: [id number] Electronically signed by: E-Sign: Dr. Willis Nieves D.O. 07/02/17 08:07 Transcribed by: shakira 06/21/2017 08:29 EMERGENCY ROOM REPORT LITZY Doan 2 LITHIUM Collected: 06/28/2017 Status: F Source: EMMANUEL LEZAMA 4:30 AM [facility] REPOSITORY TYPE CODE TESTS RESULT OUT OF REFERENCE UNITS RANGE LAB LITHIUM(SARAH BETH 0.6 - 1.2 mmol/L NC) High LITHIUM 1.4 Performed By: #### [id number] #### [facility] [place] [address] LITHIUM Collected: 06/24/2017 Status: F Source: EMMANUEL LEZAMA 5:10 AM [facility] REPOSITORY TYPE CODE TESTS RESULT OUT OF REFERENCE UNITS RANGE LAB LITHIUM(SARAH BETH 0.6 - 1.2 mmol/L NC) High LITHIUM 1.9 Performed By: #### [id number] #### [facility],[address] [place] [address] TROPONIN Collected: 06/20/2017 Status: F Source: EMMANUEL LEZAMA 1:20 [facility] REPOSITORY TYPE CODE TESTS RESULT OUT [...] such as heterophile antibodies). Performed By: #### [id number] #### [facility],[address] [place] [address] CHEST AP Observed: 06/20/2017 Status: F Source: [facility] 10:30 AM [facility] REPOSITORY [place] [address] Patient: FELICIANO MCGHEE Phone#: : 1985 Age: 32 Gender: M Pt. Type: ER Account: [id number] Location: 052 Ordering: WILLIS NIEVES Exam Date: 06/20/2017/10:23 Family Phys: OLY STEELE Charge Code: 118871 Physician: [place] Order #: [id number] DLP Dose#: PROCEDURE: X-RAY CHEST AP 1 VIEW COMPARISON: [facility], XR, CHEST PA/LAT, 11/03/2016, 5:04. INDICATIONS: Chest [...] Status: F Source: EMMANUEL LEZAMA 10:24 AM [facility] REPOSITORY TYPE CODE TESTS RESULT OUT OF [...] 7.10 x10EE3/U L Neut # 4.40 LAB [place] #(LOINC) 0.20 - 1.00 x10EE3/U L [place] # 0.60 LAB EO #(LOINC) 0.00 - 0.50 x10EE3/U L EO # 0.40 LAB Baso #(LOINC) 0.00 - 0.10 x10EE3/U L Baso # 0.00 LAB MANUAL DIFF(LOINC) MANUAL DIFF N/A LAB MORPHOLOGY(LOINC ) MORPHOLOGY N/A Result Comment: {CD] Performed By: #### [id number] #### [place] [address] TROPONIN Collected: 06/20/2017 Status: F Source: [facility] 10:24 AM [facility] REPOSITORY TYPE CODE TESTS RESULT OUT OF REFERENCE UNITS RANGE LAB TROPONIN 0.00 - 0.05 ng/ml I([facility]) TROPONIN I <0.01 Result Comment: Elevated troponin [...] such as heterophile antibodies). Performed By: #### [id number] #### [place] [address] CMP WITH EGFR Collected: 06/20/2017 Status: F Source: [facility] 10:24 AM [facility] REPOSITORY TYPE CODE TESTS RESULT OUT OF RANGE REFERENCE UNITS LAB CMP with eGFR([facility]) CMP with eGFR Result Comment: COMPREHENSIVE METABOLIC [...] OF AGE AND OLDER. Performed By: #### [id number] #### [place] [id number] LIPASE Collected: 06/20/2017 Status: F Source: [facility] 10:24 AM [facility] REPOSITORY TYPE CODE TESTS RESULT OUT OF REFERENCE UNITS RANGE LAB LIPASE(LOIN 18.0 - 51.0 U/L C) LIPASE 51.0 Performed By: #### [id number] #### [place] [id number] ALLERGIES ALLERGIES DATE TYPE / CODE NAME / CODE REACTION SEVERITY SOURCE 05/27/2018 Drug Penicillins/[id number] Unknown Unknown [place] Allergy/416 0476(RXNORM) [facility] 559556([facility] ED CT) Repository Drug PENICILLINS Moderate [facility] Allergy/416 (CLASS)/[id number](R ([facility] 817154([facility] XNORM) Modifier) Hospital ED CT) (Qualifier Repository Value) ENCOUNTERS ENCOUNTERS ADMIT/DISCHARGE ACCOUNT ADMITTING ENCOUNTER LOCATION SOURCE NUMBER CLASS 05/27/2018/05/27/19 [id number] Emergency [address] ing:ED Repository 05/25/2018 [id number] Ambulatory [facility] ing:LAB Repository 03/23/2018/03/24/20 [id number] [facility] [address] ing:OE9Ttqe: Repository [id number]: 1 03/23/2018 [id number] [place], Ambulatory BMSBuilding:Adriana Hay MS.[facility] Repository 03/23/2018 [id number] [place], Ambulatory BMSBuilding:Adriana Hay MS.[facility] Repository 03/02/2018/03/03/20 [id number] Ambulatory [address] Repository 01/04/2018/01/05/20 [id number] Emergency [address] ing:ED Repository 12/28/2017/12/29/19 [id number] Emergency [address] ing:ED Repository 12/04/2017/12/05/19 [id number] Emergency [address] ing:ED Repository 08/05/2017/08/06/19 [id number] ODELL, [facility] Repository 06/28/2017/06/28/19 [id number] [facility] Repository 06/24/2017/06/24/19 [id number] [facility] MSN,[facility] Repository 06/20/2017/06/20/19 [id number] WILLIS NIEVES Emergency [address] [place] [address] 18 DO oom: ERBed: [facility] Repository PAYERS PAYERS ENCOUNTER GUARANTOR PAYER SUBSCRIBER SOURCE 05/27/2018 FELICIANO [id number] [facility] JONE: [facility] Number: [id number], [place] [id number] Repository [address]Uxf: ([phone]) Date:9645-60-37[phone] () 728144CSPZUHQHWGEREID VAZQUEZ 260[address]XU: 05/27/2018 Secondary NOT GIVENUNK [place] Insurance:SELF PAY [facility] Number: Effective Repository Date:2018-05-27 05/25/2018 FELICIANO Doan Primary LUIZ Gini [place] [id number] Insurance:CIGNAPolicy CRIDERDOB: Community [place] Number: [id number], [place] [id number] Repository 20[address]Pzh: (330) Date:0483-63-50HU [phone] () 870231SHEEWWKFFLZ, [place] [address]MF: 05/25/2018 Secondary NOT GIVENUNK [place] Insurance:SELF PAY [facility] Number: Effective Repository Date:2018-05-25 03/23/2018 FELICIANO GARCIABREY Gini [place] [id number] Insurance:CIGNAPolicy CRIDERDOB: [facility] Number: [id number], [place] [id number] Repository [address]Crm: (330) Date:0786-18-43VK [phone] () [id number], [place] [address]KP: 03/23/2018 Secondary NOT GIVENUNK [place] Insurance:SELF PAY [facility] Number: Effective Repository Date:2018-03-23 03/23/2018 FELICIANO Doan Primary LUIZ Gini [place] [id number] Insurance:CIGNAPolicy CRIDERDOB: [facility] Number: [id number], [place] [id number] Repository [address]Rec: (330) Date:1390-16-26BM [phone] () [id number], [place] [address]BP: 03/23/2018 Secondary NOT GIVENUNK [place] Insurance:SELF PAY [facility] Number: Effective Repository Date:2018-03-23 03/23/2018 FELICIANO DEE J [place] [id number] Insurance:CIGNAPolicy CRIDERDOB: [facility] Number: [id number], [place] [id number] Repository [address]Tdw: (330) Date:4072-31-56MD [phone] (HP) 112[address]AVUIBGYVDUT, [place] [address]EM: 03/23/2018 Secondary NOT GIVENUNK [place] Insurance:SELF PAY [facility] Number: Effective Repository Date:2018-03-23 01/04/2018 FELICIANO Doan Primary Luiz Rubalcava [place] [id number] Insurance:CIGNAPolicy CriderDOB: [facility] Number: [id number], [place] [id number] Repository [address]Mfb: (330) Date:6857-43-19ZC [phone] () 062463QKVDKJZIHJF, [place] [address]XE: 01/04/2018 Secondary NOT GIVENUNK [place] Insurance:SELF PAY [facility] Number: Effective Repository Date:2018-01-04 12/28/2017 FELICIANO Doan Primary Luiz [place] [id number] Insurance:CIGNAPolicy CriderDOB: [facility] Number: [id number], [place] [id number] Repository [address]Vmu: (330) Date:1497-16-71LG [phone] () [id number], [place] [address]LX: 12/28/2017 Secondary NOT GIVENUNK [place] Insurance:SELF PAY [facility] Number: Effective Repository Date:2017-12-28 12/04/2017 FELICIANO Franki Primary Luiz [place] [id number] Insurance:CIGNAPolicy CriderDOB: [facility] Number: [id number], [place] [id number] Repository [address]Emw: (330) Date:6394-58-19GG [phone] () [id number], [place] [address]LG: 12/04/2017 Secondary NOT GIVENUNK [place] Insurance:SELF PAY [facility] Number: Effective Repository Date:2017-12-04 06/28/2017 FELICIANO Doan Primary FELICIANOSANDI Ledesmamadison CRIDERDOB: Insurance:MEDICAID CRIDERDOB: [facility] [id number] [facility] [id number] [facility] [address] Number: [address] Repository [address] [place] [address] [id number] 253[place], [place] [phone]: Date:Plan Name:X1 [id number] () 06/20/2017 FELICIANO Doan Primary Insurance:BLUE LUIZKleber Lezama CRIDERDOB: [address] CRIDERDOB: [facility] [id number] [facility] [id number] [facility] [address] Number: [address], Repository 253[place], [place] [id number] [place] [address] [id number]: Date:Plan Name:B2 ()
== END 2018-05-27 16:54 | disposition home or self-care (01) ==
LOC: ED 16:54
PROVIDERS: Emergency Provider Emergency Medicine
DX: M54.30 Sciatica, unspecified side (principal); G11.4 Hereditary spastic paraplegia; Z72.0 Tobacco use
CPT/HCPCS: 99283

== ENCOUNTER 2018-06-10 20:06 | Emergency (ER) | payer OTHER, SELFPAY ==
[2018-06-10 20:08] VITALS: BP 137/101; PULSE 101; RESP 18; TEMP 36.6; O2SAT 96; BMI 33.2
--- NOTE | 2018-06-10 20:17 | NURSING ---
pt unable to provide home medication list at this time; pt states I take a bunch of heart medicines
--- NOTE | 2018-06-10 20:19 | ED.VISSUMM ---
- ER Visit Summary Date of Service: 06/10/18 Chief Complaint: Agitation History of Present Illness: The patient is a 33 M who presents with suicidal ideation and agitation. He has a history of bipolar apparently he was quite manic and mother called police. Apparently in his ludivina he trashed his house. Difficult to get a good history from the patient he is quite hyperalert agitated and has flight of ideas. Physical Examination: Patient is hyper alert, easily distracted, he has somewhat pressured speech he allows me a brief physical exam see below Moist mucous membranes, no obvious facial deformity No C-spine tenderness supple neck. Regular rate and rhythm without any obvious murmurs Clear lungs bilaterally speaking in full sentences without any obvious respiratory distress Abdomen soft and nontender no guarding or rebound Moves all extremities without any difficulty or pain. Skin does not show any obvious no gross focal deficit Emergency Department Course and Treatment: I ordered Geodon, we will medically clear him, he does admit to alcohol. He will need placement for suicidal ideation we will call crisis when he is clear. Plan is to transfer to psychiatric facility Impression: Acute ludivina Suicidal ideation This note was generated with [employer] dictation software. It may contain incorrect words, spelling, and punctuation that were not noted in review of the chart prior to signing ED Disposition - Plan for ED Patient: Referrals: Care Physician,No Primary [Primary Care Provider] -
[2018-06-10 20:26] LABS: Absolute Lymphocyte Count 4.02 X10^3/ul (0.83-4.51); Absolute Neutrophil Count 3.9 X10^3/uL (2.0-7.7); Basophil# 0.04 X10^3/uL; Basophil% 0.4 % (0-1); Eosinophils% 4.4 % (0-5); Hemoglobin 13.1 g/dl (13.0-16.5); Lymphocyte # 4.02 X10^3/ul (4.0); Lymphocyte % 43.7 % (19-41); Mean Corp Hgb Conc 32.8 g/gl (32-36); Mean Corpuscular Hgb 28.6 pg (27.0-32.0); Mean Corpuscular Volume 87.3 fL (80-94); Mean Platelet Vol. 9.9 fl (6.2-12.0); Monocyte# 0.81 X10^3/uL; Monocyte% 8.8 % (0-10); Neutrophil % 42.5 % (47-70); POSITIVE COUNT NO; POSITIVE DIFFERENTIAL NO; POSITIVE MORPHOLOGY NO; Platelet Count 272 K/mm3 (150-450); RBC Distribution Width CV 13.3 % (11.6-14.6); RBC Distribution Width SD 42.7 fl (35.1-43.9); Red Blood Count 4.58 M/mm3 (4.6-6.2); White Blood Count 9.2 K/mm3 (4.4-11.0)
[2018-06-10] MEDS: Ziprasidone IM 20 MG/ML VIAL IM (20:28)
[2018-06-10 20:35] LABS: Anion Gap 15 (5-15); BUN 12 mg/dL (7-18); Calcium,Total 8.4 mg/dL (8.5-10.1); Chloride 112 mmol/L (98-107); Creatinine, Serum 1.09 mg/dL (0.70-1.30); EST Glomerular Filtration Rate 83 mL/min (>60); Est Glom Filt Rate - Afr Amer 100 mL/min (>60); Estimated Creatinine Clearance 96.39 ml/min; Glucose 100 mg/dL (74-106); Potassium 2.9 mmol/L (3.5-5.1); Sodium Level 145 mmol/L (136-145)
--- NOTE | 2018-06-10 20:37 | ED.RN ---
SITTER AT THE BEDSIDE
--- NOTE | 2018-06-10 20:40 | CM.ED ---
Social Work Note Pt brought in via PD as he was pink slipped for violent behaviors. PD was called to the scene by the pt's and was found face down among broken furniture and unconscious. He destroyed multiple furniture items in the home and dialogue was unintelligible per PD report. Reportedly the pt had mixed Seroquel and alcohol in what is believed to have been an attempt at suicide by overdose. Pt does admit to SI, plan and intent in triage documentation. At this time pt is too intoxicated for evaluation and was recently given Geodon. Once pt is less intoxicated and able to participate in assessment will need to be evaluated by mental health worker. Pt placed in 1:1 sitter. PLAN: Mental Health assessment to evaluate severity and lethality of suicidal risk. DENNY Jimenez, TSERING
[2018-06-10 22:00] VITALS: PULSE 77; RESP 18; O2SAT 95
--- NOTE | 2018-06-10 22:15 | ED.RN ---
KDUR ORDERED; PT GIVEN GEODON PREVIOUSLY AND UNABLE TO STAY AWAKE LONG ENOUGH TO FOLLOW COMMANDS.
[2018-06-10 22:28] LABS: Amphetamine Urine VISTA NEGATIVE (<1000 ng/mL); Barbiturate Urine VISTA NEGATIVE (< 200 ng/mL); Benzodiazepine Urine VISTA NEGATIVE (< 200 ng/mL); Cocaine Urine VISTA NEGATIVE (< 300 ng/mL); Ecstacy Urine VISTA NEGATIVE (< 500 ng/mL); Methadone Urine VISTA NEGATIVE (< 300 ng/mL); PCP Urine VISTA NEGATIVE (< 25 ng/mL); THC Urine VISTA NEGATIVE (< 50 ng/mL); Vista UDS pH Range 7
[2018-06-11] VITALS (8 sets, daily range): BP systolic 126–128; BP diastolic 62–81; PULSE 71–98; RESP 16–18; O2SAT 96–100
--- NOTE | 2018-06-11 01:49 | ED.RN ---
PT UP OUT OF BED. PT STATES I'M GOING HOME. PT ATTEMPTING TO LEAVE THE ROOM AND DEPARTMENT. [facility] DIAZ CONTACTED TO RESPOND. THIS NURSE EXPLAINED THAT THE PT ALCOHOL LEVEL IS ELEVATED AND HE HAS BEEN PINK SLIPPED HE IS UNABLE TO LEAVE. PT STATES I'M LEAVING. STAFF CONTINUED SPEAKING WITH THE PT ABOUT STAYING. PT RELUCTANTLY GOT BACK INTO BED. PT GIVEN A SANDWICH AND SOME WATER. AZEEM DIAZ CONTACTED THAT THEY NO LONGER NEED TO RESPOND
--- NOTE | 2018-06-11 01:59 | ED.RN ---
PT REQUESTING TO CALL HIS . PT GIVEN PORTABLE PHONE TO CONTACT HIS
--- NOTE | 2018-06-11 02:08 | ED.RN ---
AZEEM DIAZ CONTACTED
[2018-06-11] MEDS: Ziprasidone IM 20 MG/ML VIAL IM (02:15)
[2018-06-11] MEDS: busPIRone 5 MG Tablet 10 MG PO (03:10)
--- NOTE | 2018-06-11 08:11 | ED.RN ---
CALLED [facility]IS[facility]; AILIN IS MACHINE HEEL SEAT FITTER; ANSWERING SERVICE WILL RELAY THE MESSAGE TO HER THAT PT IS READY TO BE EVALUATED
--- NOTE | 2018-06-11 08:46 | ED.RN ---
PER [facility]SELING [facility]; THEY RELAYED THE MESSAGE TO EDDIE PARISI IS NOW ON SHIFT. SHE IS GOING TO HAVE HER CALL US
--- NOTE | 2018-06-11 09:40 | ED.RN ---
[facility] COUNSELOR IS IN WITH PT
--- NOTE | 2018-06-11 10:13 | ED.VISSUMM ---
- ER Visit Summary Date of Service: 06/11/18 Chief Complaint: [Addendum to initial dictation from Dr. Vito Linarse] History of Present Illness: The patient is a 33 M [who was brought to the emergency department 14 hours ago and was found to be quite intoxicated. Care of patient was turned over to me awaiting evaluation by crisis as patient had made threats to harm himself. Upon normalization of his alcohol patient was seen by crisis in the emergency department and at this time patient has no recollection of the statements that he had made and he is very apologetic that he calls anybody difficulties here. Patient has no intention on harming himself. Patient is not feeling suicidal. Patient can contract for safety. Patient states that he is an alcoholic and had been clean for over 30 days however he got his hands on a bottle of whiskey and drank the whole bottle last night.] Physical Examination: [HEENT-PERRLA, EOMI. Cranial nerves II through XII grossly intact. TMs clear. Mucous membranes moist. No adenopathy. Cardiovascular-regular rate and rhythm without murmur or ectopy Lungs-clear to auscultation, chest wall stable without crepitus or subcu emphysema Abdomen-normoactive bowel sounds, soft, nontender, no rebound or rigidity, no peritoneal signs. Extremities-intact ?4, normal range of motion, normal pulses, atraumatic] Test Results: [] Emergency Department Course and Treatment: [] Treatment Plan: [Follow-up with crisis. Patient advised to stop drinking alcohol] Disposition: [Discharged home in stable condition] Impression: [Alcohol intoxication] This note was generated with [employer] dictation software. It may contain incorrect words, spelling, and punctuation that were not noted in review of the chart prior to signing ED Disposition - Plan for ED Patient: Referrals: Care Physician,No Primary [Primary Care Provider] -
--- NOTE | 2018-06-11 10:15 | ED.DEP ---
ED Disposition - Plan for ED Patient: Instructions: ED Overdose Alcohol Referrals: Care Physician,No Primary [Primary Care Provider] - Vic Henley MD [STAFF PHYSICIAN] - As Needed
== END 2018-06-11 10:40 | disposition home or self-care (01) ==
PROVIDERS: Emergency Medicine; Emergency Provider Emergency Medicine
DX: F30.9 Manic episode, unspecified (principal); R45.851 Suicidal ideations; F10.229 Alcohol dependence with intoxication, unspecified; Y90.9 Presence of alcohol in blood, level not specified
CPT/HCPCS: 36415; 80048; 80178; 80307; 80320; 85025; 96372; 99284; G0480; J3486

== ENCOUNTER 2018-07-12 12:22 | Emergency (ER) | payer OTHER, SELFPAY ==
[2018-07-12 12:22] VITALS: BP 163/98; PULSE 101; RESP 18; TEMP 35.5; O2SAT 98; BMI 28.7
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
[2018-07-12] MEDS: HYDROcodone Bitartrate/Apap 5/325 Tablet PO (14:06)
== END 2018-07-12 14:07 | disposition home or self-care (01) ==
PROVIDERS: Emergency Provider Emergency Medicine
DX: H11.31 Conjunctival hemorrhage, right eye (principal); S16.1XXA Strain of muscle, fascia and tendon at neck level, initial encounter; S20.212A Contusion of left front wall of thorax, initial encounter; S00.11XA Contusion of right eyelid and periocular area, initial encounter; V89.2XXA Person injured in unspecified motor-vehicle accident, traffic, initial encounter; Y93.9 Activity, unspecified; Y92.410 Unspecified street and highway as the place of occurrence of the external cause; Y99.9 Unspecified external cause status; I25.10 Atherosclerotic heart disease of native coronary artery without angina pectoris; Z95.5 Presence of coronary angioplasty implant and graft; F17.200 Nicotine dependence, unspecified, uncomplicated
CPT/HCPCS: 71101; 72040; 99283

== ENCOUNTER 2018-08-08 06:30 | Emergency (ER) | payer OTHER, SELFPAY ==
[2018-08-08 06:31] VITALS: BP 163/120; PULSE 82; RESP 16; TEMP 36.1; O2SAT 97; BMI 28.7
--- NOTE | 2018-08-08 06:47 | ED.DCSUM_ITS ---
- ER Visit Summary Date of Service: 08/08/18 Chief Complaint: Right paravertebral back pain History of Present Illness: The patient is a [address] of hereditary spastic paraplegia also prior CAD with [place] and prior stent. Patient states he injured his back and now is having pain along the right lateral mid back. He denies any falls or trauma. Denies any chest pain or shortness of breath. No abdominal pain. Physical Examination: Young male vital signs are stable afebrile. Initial blood pressure is elevated 163/120. HEENT exam unremarkable. Neck nontender. Lungs clear to auscultation bilaterally. Heart regular rhythm rate about 80 no murmur. Anterior chest wall nontender. Abdomen soft and nontender normal bowel sounds no peritoneal signs. Extremities he has rigidity of his lower extremities which is his baseline. But he is able to move them. Neurologically is awake and alert with spastic rigidity of the lower extremities greater than the upper. Back exam cervical, thoracic and lumbar spine are nontender. His right paravertebral soft tissues, musculature and trapezius are tender to palpation consistent with a trapezial strain and spasm. There is no ecchymosis or bruising. No redness or warmth. He has a very large tattoo on his back. Neurologically is awake and alert. With spastic rigidity of his lower extremities. Test Results: None Emergency Department Course and Treatment: Treated with a prescription for Skelaxin. Treatment Plan: Motrin for pain. Hot shower warm bath. Massage. And the Skelaxin. Disposition: Discharge Impression: Right trapezial muscle strain and spasm This note was generated with [employer] dictation software. It may contain incorrect words, spelling, and punctuation that were not noted in review of the chart prior to signing ED Disposition - Plan for ED Patient: Referrals: Care Physician,No Primary [Primary Care Provider] -
--- NOTE | 2018-08-08 06:47 | ED.DEP ---
ED Disposition - Plan for ED Patient: Disposition: Home or Assisted Living Instructions: ED Sprain Strain Lumbar Prescriptions: Metaxalone [Skelaxin] 800 mg PO TID #20 tab Referrals: Jackson Toney MD [STAFF PHYSICIAN] - As soon as possible Additional Instructions: Hot shower, warm bath and massage to your back. This appears to be a strain and spasm of your mid back trapezius area. The Skelaxin is a good muscle relaxant. 1 pill 3 times a day till gone. Motrin for pain and inflammation.
[2018-08-08 06:55] VITALS: RESP 16
== END 2018-08-08 06:55 | disposition home or self-care (01) ==
PROVIDERS: Emergency Provider Emergency Medicine
DX: S29.012A Strain of muscle and tendon of back wall of thorax, initial encounter (principal); X58.XXXA Exposure to other specified factors, initial encounter; Y93.9 Activity, unspecified; Y92.89 Other specified places as the place of occurrence of the external cause; Y99.9 Unspecified external cause status; M62.830 Muscle spasm of back; I25.10 Atherosclerotic heart disease of native coronary artery without angina pectoris; I25.2 Old myocardial infarction; G11.4 Hereditary spastic paraplegia; Z95.5 Presence of coronary angioplasty implant and graft; Z72.0 Tobacco use
CPT/HCPCS: 99282

== ENCOUNTER 2018-10-02 20:39 | Emergency (ER) | payer OTHER, SELFPAY ==
[2018-10-02 20:40] VITALS: BP 166/117; PULSE 111; RESP 20; TEMP 36.3; O2SAT 97; BMI 29.5
--- NOTE | 2018-10-02 21:24 | EKG12_ITS ---
Test Reason : BACK Blood Pressure : / mmHG Vent. Rate : 090 BPM Atrial Rate : 090 BPM P-R Int : 170 ms QRS Dur : 108 ms QT Int : 364 ms P-R-T Axes : 034 032 030 degrees QTc Int : 445 ms Normal sinus rhythm Low voltage QRS (Limb Leads) Nonspecific T-Wave Abnormality Confirmed by MIRANDA MILLS, ARIE ([id number]), marketing editor JUAN CHEN ([id number]) on 10/05/2018 9:12:59 AM Referred By: BB Confirmed By:ARIE JEAN MD
--- NOTE | 2018-10-02 21:24 | ED.VIS.GEN ---
History of Present Illness Chief Complaint: Back Informant: Patient Onset: Days - 3 Context: - - awoke w/ sx, gradually worrse Current Severity: Severe Maximum Severity: Severe Worsened by: deep inspiration, movement Relieved by: remaining still and breathing easy Associated Symptoms: chest discomfort Narrative: Patient states he has pain in his back and opposite that area in his left chest that feel like a rib fracture. He states he has had rib fractures 3 or 4 times in the past, that have occurred spontaneously as a result of his hereditary spastic paraplegia that also has been associated with brittle bones. His chest hurts when he moves around, as does the area in his back. He denies a history of DVT or PE. No recent leg pain or swelling, no hospitalization, travel, immobilization, or recent surgery. Prior similar symptoms: Yes - spont fx of ribs Recent Illness/Hospitalization: No - no URIs in past month - Past Medical History (1) Hereditary spastic paraplegia Status: Chronic Past Medical History - Allergies and Home Meds Allergies/Adverse Reactions: Allergies Penicillins [PCN] Adverse Reaction (Verified 08/08/18 06:31) Unknown Primary Care Physician: Care Physician,No Primary [Primary Care Provider] - Surgical History: appendectomy, - - Plate in left ankle. left hand. Smoking Status: Current every day smoker Drugs: None Review of Systems General: Denies: Chills, Fever, Sweats Eyes: Denies: Visual changes - bilaterally, Diplopia ENT: Denies: Rhinorrhea, Sore throat Cardiovascular: Reports: Chest pain. Denies: Palpitations Respiratory: Reports: Dyspnea - because it hurts to breathe deeply. Denies: Cough, Dyspnea on exertion Gastrointestinal: Denies: Abdominal pain, Nausea, Vomiting, Diarrhea, Melena, Hematochezia Genitourinary: Denies: Dysuria, Hematuria, Frequency Musculoskeletal: Reports: Back pain. Denies: Extremity Pain Skin: Denies: Rash, Wounds Neurological: Denies: Headache, Weakness, Numbness Physical Exam Vital Signs/Narrative: Vital Signs Temp Pulse Resp BP Pulse Ox 10/02/18 20:40 97.3 F L 111 H 20 H 166/117 H 97 Inital Vital Signs reviewed: Yes General: Well nourished, Well developed, No Acute Distress Head: Normocephalic, Atraumatic Eyes: Perrl, EOMI ENT: Moist mucous membranes, No rhinorrhea Neck: Supple, Nontender Cardiovascular: Regular rate, Regular rhythm, No murmurs Respiratory: No distress, CTA bilaterally - w/ equal BS bilat, Chest nontender - Without any subcutaneous emphysema. Abdomen: Soft, Nontender, Nondistended, Normal bowel sounds Back: Normal Inspection, - - Point tender in area of left rhomboids, just medial to the inferior tip of the left scapula. No crepitance. Negative for: Spinal tenderness Extremities: Nontender, No edema. Negative for: Calf Tenderness Skin: Normal color, No rash, No Trauma Neurological: Alert, Oriented x3, Cranial nerves II-XII grossly intact, Normal Strength, Normal Sensation Psychological: Normal affect, Normal Mood Diagnostic/Tx/Re-eval Clinical Impression(s) from Imaging Studies Ribs w/Chest X-Ray 10/02/18 21:35 IMPRESSION: RIBS: Normal x-ray examination of the ribs. CHEST: Normal x-ray examination of the chest. Electronically Signed: Juan Pimentel MD at 21:54 EDT , Service support , - Rhythm Strip Rhythm Strip: Sinus Rhythm Rate: 90 Ectopy: None - EKG Initial EKG Interpretation: Sinus Rhythm, No Acute Injury Pattern, - - No signs of acute pericarditis Prior: Unchanged - Medical Decision Making Patient was given Toradol but it did not help. He takes a version of Narcan daily, narcotics are not indicated here. Skelaxin worked well last time. He has no evidence of a rib fracture, and I suspect this is musculoskeletal with his tenderness and my ability to reproduce his pain with palpation and his moving around. He has no radiographic rib fracture or pneumothorax. I do not think he needs to be worked up for pulmonary embolus at this time. His EKG shows no evidence of acute pericarditis. Will give him a dose of Norflex and prescribed Skelaxin and advise a follow-up if needed. He is comfortable with that plan. ED Disposition - Plan for ED Patient: Disposition: Home or Assisted Living Diagnosis: Thoracic back pain Instructions: ED Strain Chest Wall, ED Contusion Vs Minor Fx Rib Prescriptions: Metaxalone [Skelaxin] 800 mg PO TID PRN #20 tab PRN Reason: pain/muscle spasm Referrals: Merly Camarillo [NON-STAFF] - 1 Week if not improving
[2018-10-02] MEDS: Ketorolac 60 MG/2 ML Vial IM (21:30)
--- NOTE | 2018-10-02 21:35 | RAD_ITS ---
STUDY: X-RAY - UNILATERAL RIBS ( LEFT ) WITH CHEST REASON FOR EXAM: Male, 33 years old. Pain TECHNIQUE - RIBS: 4 view(s) of the ribs. TECHNIQUE - CHEST: Single PA view of the chest. COMPARISON: None. FINDINGS - RIBS: Normal visualized ribs without a demonstrated fracture. FINDINGS - CHEST: The lungs are clear and expanded. There is no demonstrated pleural abnormality. Normal size heart. Normal mediastinum and eliana. Normal visualized pulmonary arteries. Normal visualized aortic arch and descending thoracic aorta. Normal visualized thoracic spine. Normal visualized ribs, clavicles, and shoulders. There is no demonstrated abnormality of the visualized soft tissue structures of the upper abdomen. RAD/Ribs Uni Min 3V w/PA Chest IMPRESSION: RIBS: Normal x-ray examination of the ribs. CHEST: Normal x-ray examination of the chest. Electronically Signed: Juan Pimentel MD at 21:54 EDT , Service support ,
[2018-10-02] MEDS: Orphenadrine 60 MG/2 ML Ampul IM (22:36)
== END 2018-10-02 22:49 | disposition home or self-care (01) ==
PROVIDERS: Emergency Provider Emergency Medicine
DX: M54.6 Pain in thoracic spine (principal); F17.200 Nicotine dependence, unspecified, uncomplicated; Z88.0 Allergy status to penicillin; G11.4 Hereditary spastic paraplegia
CPT/HCPCS: 71101; 93005; 96372; 99282

== ENCOUNTER 2018-10-05 17:50 | Emergency (ER) | payer OTHER, SELFPAY ==
[2018-10-05 17:51] VITALS: BP 150/104; PULSE 119; RESP 18; TEMP 36.8; O2SAT 96; BMI 29.5
--- NOTE | 2018-10-05 18:24 | ED.VISSUMM ---
- ER Visit Summary Date of Service: 10/05/18 Chief Complaint: [Back pain] History of Present Illness: The patient is a 33 M [[place] to the emergency room with complaint of back discomfort. Patient states that for the last day and a half he has had some burning sensation to the right side of his mid back that wraps around to the abdomen. Patient denies any trauma. 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 He currently does not have a primary care physician. Patient had been in [place] recently came back from [place]. Patient was seen in the ER 5 days ago and had x-rays of his ribs and a chest x-ray which were unremarkable however he told me that he was told he had a broken rib. Patient states he had broken ribs before spontaneously. States he has had to miss work as of the pain and the Skelaxin and ibuprofen is not helping his pain.] Patient denies change in bowel or bladder function. He denies any saddle anesthesia. He denies any pain rating down his legs. Patient has not had any recent trauma. Physical Examination: [HEENT-PERRLA, EOMI. Cranial nerves II through XII grossly intact. TMs clear. Mucous membranes moist. No adenopathy. Cardiovascular-regular rate and rhythm without murmur or ectopy Lungs-clear to auscultation, chest wall stable without crepitus or subcu emphysema Abdomen-normoactive bowel sounds, soft, nontender, no rebound or rigidity, no peritoneal signs. Back exam-she has some mild discomfort over the right thoracic paraspinal musculature. Negative straight leg raises. Deep tendon reflexes are plus 2 out of 4 bilaterally at the patella and Achilles. Patient has normal 5 extension bilaterally. Patient has normal sensation to light touch. Extremities-intact ?4, normal range of motion, normal pulses, atraumatic] Test Results: [I reviewed the patient's x-ray reports from his last visit and there was no fractures noted. Patient also was noted at that time to be on naltrexone and therefore he was not given any narcotic pain medication when I asked the patient about this he tells me that he is not taking naltrexone. I did perform an oars report which does show patient received naltrexone as early as September 19. Patient also told me he had not had a narcotic pain medication for the last year however on the oars report he had hydrocodone in July. At this point I do not feel he has a condition indicating use of narcotic pain medications. He understands I will not write him for any narcotics. I did give him work restrictions.] No further x-rays indicated. 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 It may contain incorrect words, spelling, and punctuation that were not noted in review of the chart prior to signing ED Disposition - Plan for ED Patient: Referrals: Care Physician,No Primary [Primary Care Provider] -
--- NOTE | 2018-10-05 18:28 | ED.DEP ---
ED Disposition - Plan for ED Patient: Instructions: ED Neck Back Pain General Referrals: Care Physician,No Primary [Primary Care Provider] - Ishan Wilkes MD [STAFF PHYSICIAN] - 5-7 Days
== END 2018-10-05 18:39 | disposition home or self-care (01) ==
PROVIDERS: Emergency Provider Emergency Medicine
DX: M54.9 Dorsalgia, unspecified (principal); G58.8 Other specified mononeuropathies; Z87.820 Personal history of traumatic brain injury; I25.2 Old myocardial infarction; Z72.0 Tobacco use; I25.10 Atherosclerotic heart disease of native coronary artery without angina pectoris
CPT/HCPCS: 99282

== ENCOUNTER 2018-12-16 06:56 | Observation (INO) | payer OTHER, SELFPAY ==
[2018-12-16] VITALS (9 sets, daily range): BP systolic 94–144; BP diastolic 48–74; PULSE 69–95; RESP 18; TEMP 36.6–36.9; O2SAT 94–99; BMI 31.1; BMI 29.2
--- NOTE | 2018-12-16 07:27 | RAD_ITS ---
STUDY: X-RAY CHEST REASON FOR EXAM: Male, 33 years old. Chest pain. TECHNIQUE: Single AP portable view of the chest. COMPARISON: Comparison is made with prior study dated January 04, 2018. FINDINGS: EKG electrodes are seen. The lungs are clear and expanded. There is no demonstrated pleural abnormality. Normal size heart. Normal mediastinum and eliana. Normal visualized pulmonary arteries. Normal visualized aortic arch and descending thoracic aorta. Normal visualized thoracic spine. Normal visualized ribs, clavicles, and shoulders. There is no demonstrated abnormality of the visualized soft tissue structures of the upper abdomen. RAD/Chest 1 View (Portable) IMPRESSION: Normal x-ray examination of the chest. Electronically Signed: Parmjit Serrano, at 8:23 EDT , Service support ,
--- NOTE | 2018-12-16 07:27 | EKG12_ITS ---
Test Reason : ADM CP EKG Blood Pressure : / mmHG Vent. Rate : 083 BPM Atrial Rate : 083 BPM P-R Int : 160 ms QRS Dur : 092 ms QT Int : 370 ms P-R-T Axes : 024 041 010 degrees QTc Int : 434 ms Normal sinus rhythm Normal ECG When compared with ECG of 16-DEC-2018 07:00, MANUAL COMPARISON REQUIRED, DATA IS UNCONFIRMED Confirmed by SULEIMAN JUNE ([id number]), state editor JUAN CHEN ([id number]) on 12/22/2018 3:01:21 PM Referred By: ALLYN Confirmed By:SULEIMAN JUNE
[2018-12-16 07:39] LABS: Absolute Lymphocyte Count 2.22 X10^3/uL (0.83-4.51); Absolute Neutrophil Count 2.6 X10^3/uL (2.0-7.7); Basophil# 0.07 X10^3/uL; Basophil% 1.3 % (0-1); Eosinophil# 0.12 X10^3/uL; Eosinophils% 2.2 % (0-5); Hematocrit 40.1 % (40-54); Hemoglobin 13.8 g/dL (13.0-16.5); Lymphocyte # 2.22 X10^3/ul (4.0); Lymphocyte % 41.4 % (19-41); Mean Corp Hgb Conc 34.4 g/dL (32-36); Mean Corpuscular Hgb 29.7 pg (27.0-32.0); Mean Corpuscular Volume 86.2 fL (80-94); Mean Platelet Vol. 10.9 fl (6.2-12.0); Monocyte# 0.37 X10^3/uL; Monocyte% 6.9 % (0-10); NRBC Flagged by Analyzer 0 % (0-5); Neutrophil # 2.57 X10^3/uL (2.7-7.7); Platelet Count 297 K/mm3 (150-450); RBC Distribution Width CV 12.9 % (11.6-14.6); RBC Distribution Width SD 40.4 fl (35.1-43.9); Red Blood Count 4.65 M/mm3 (4.6-6.2); White Blood Count 5.4 K/mm3 (4.4-11.0)
[2018-12-16] MEDS: 0.9% Normal Saline 1,000 ML 150 ML IV (07:39)
[2018-12-16] MEDS: Ondansetron 4 MG/2 ML Vial IV (07:39)
--- NOTE | 2018-12-16 07:56 | ED.DCSUM_ITS ---
- ER Visit Summary Date of Service: 12/16/18 Chief Complaint: [Chest pain] History of Present Illness: The patient is a 33 M [presents to the emergency department complaint of chest pain that started last evening. She states he has had intermittent pain that lasts anywhere from 3 to 4 minutes somewhat sharp in the left chest that radiates to his back and his left armpit. Patient had nausea with it and shortness of breath. Patient's been diaphoretic with it. Patient states that he has had similar pain in the past when he had a heart attack few years ago that required a cardiac stent. Patient does have history of hypertension and hypercholesterolemia as well as family history of heart disease. Patient continues to smoke. She denies illicit drug use such as cocaine.] Physical Examination: [HEENT-PERRLA, EOMI. Cranial nerves II through XII grossly intact. TMs clear. Mucous membranes moist. No adenopathy. Cardiovascular-regular rate and rhythm without murmur or ectopy Lungs-clear to auscultation, chest wall stable without crepitus or subcu emphysema Abdomen-normoactive bowel sounds, soft, nontender, no rebound or rigidity, no peritoneal signs. Extremities-intact ?4, normal range of motion, normal pulses, atraumatic] Test Results: [EKG obtained on arrival shows sinus rhythm with a ventricular rate of 82 bpm with no acute segment changes. CBC with differential is normal. Chemistries unremarkable. LFTs and lipase were normal. Troponin is less than 0.15. D-dimer was less than 0.27. Chest x-ray was unremarkable.] Emergency Department Course and Treatment: [EMS gave patient aspirin and nitroglycerin. Patient is pain-free on arrival to the emergency department.] Treatment Plan: [Admit for further work-up and evaluation of chest pain] Disposition: [Admit Impression: [Chest pain-rule out acute coronary syndrome] This note was generated with [employer] dictation software. It may contain incorrect words, spelling, and punctuation that were not noted in review of the chart prior to signing ED Disposition - Plan for ED Patient: Referrals: Care Physician,No Primary [Primary Care Provider] -
[2018-12-16 08:02] LABS: Anion Gap 10 (5-15); BUN 18 mg/dL (7-18); BUN/Creat Ratio 18.8 RATIO (10-20); Calcium,Total 8.9 mg/dL (8.5-10.1); Chloride 109 mmol/L (98-107); Creatinine, Serum 0.96 mg/dL (0.70-1.30); EST Glomerular Filtration Rate 96 mL/min (>60); Est Glom Filt Rate - Afr Amer 116 mL/min (>60); Estimated Creatinine Clearance 109.45 ml/min; Glucose 110 mg/dL (74-106); Potassium 4.6 mmol/L (3.5-5.1); Sodium Level 139 mmol/L (136-145)
[2018-12-16 08:05] LABS: AST(SGOT) 82 U/L (15-37); Alanine Aminotransfer ALT/SGPT 158 U/L (16-61); Albumin, Serum 3.7 g/dL (3.2-5.0); Alkaline Phosphatase 125 U/L (45-117); Bilirubin, Direct 0.08 mg/dL (0.00-0.30); Protein, Total 7.7 g/dL (6.4-8.2)
[2018-12-16 08:06] LABS: D-Dimer Quantitative (DVT/PE) < 0.27 FEU/ug/m (0.27-0.49)
[2018-12-16 08:24] LABS: Lipase 186 U/L (73-393)
--- NOTE | 2018-12-16 08:42 | PCM.HP.STD ---
Problem List (1) Chest pain Status: Acute Qualifiers: Chest pain type: unspecified Qualified Code(s): R07.9 - Chest pain, unspecified (2) Hereditary spastic paraplegia Status: Chronic (3) Gastroenteritis Status: Chronic History of Present Illness Date of Admission: 12/16/18 Chief Complaint: Chest pain The patient is a 33 year old M with PMHx of hereditary spastic paraplegia, CAD status post stents, who comes in with complaints of chest pain that happened at 1 AM on the day of admission. Patient was sleeping when he had sudden onset of substernal crushing chest pain that waxes and wanes. Had some diaphoresis, mild nausea but no vomiting. The pain radiated to his back and his left armpit. He describes this as feeling quite similar to his heart attack. At the time of being seen, he felt improved. His chest pain has no aggravating factors, relieved by stretching or taking deep breath. Vitals in the ED showed temperature of 90 8F, heart rate 81, blood pressure 94/48, respiratory 18, SPO2 96% on room air. Admitting blood work is unremarkable. EKG showed no acute ST-T changes. Troponins x1 was negative. Chest x-ray was negative. Past Medical History Past Medical History (Chronic Problems): Chronic Problems (Last Updated 03/23/18 @ 20:24 by Satnam Chappell MD) Hereditary spastic paraplegia (Chronic) Gastroenteritis (Chronic) Medical History: Medical History (Last Updated 03/23/18 @ 20:24 by Satnam Chappell MD) CAD (coronary artery disease) I25.10 Hypertension I10 Allergies Penicillins [PCN] Adverse Reaction (Verified 12/16/18 07:06) Unknown Home Medications: Ambulatory Orders Medication Instructions Recorded Clopidogrel Bisulfate [Clopidogrel] 75 mg PO DAILY 07/12/18 Metoprolol Tartrate [Lopressor 100 mg PO BID 07/12/18 (beta alexandria)] Quetiapine Fumarate 800 mg PO QHS 07/12/18 Rosuvastatin Calcium 40 mg PO DAILY 07/12/18 Lisinopril 5 mg PO DAILY 12/16/18 Surgical History: appendectomy, - - Plate in left ankle. left hand. Psychiatric History: Bipolar Smoking Status: Current every day smoker Tobacco Use: Cigarettes Alcohol: None Drugs: None Review of Systems Constitutional: Denies: Anorexia, Chills, Fever, Malaise, Weakness, Weight Change Eyes: Denies: Blurred vision, Cataracts, Conjunctivae Inflammation, Pain, Redness, Vision Change HEENT: Denies: Difficulty Hearing, Difficulty Swallowing, Head Aches, Hearing Changes, Sinus Congestion, Sinus Drainage Cardiovascular: Reports: Chest Pain, Chest Tightness, Light Headedness. Denies: Orthopnea, Palpitations, Paroxysmal Noc. Dyspnea Respiratory: Denies: Cough, Shortness of breath at rest, Shortness of breath upon exertion, Sputum production Gastrointestinal: Reports: Nausea. Denies: Abdominal Pain, Constipation, Hematemesis, Hematochezia, Vomiting Genitourinary: Denies: Dysuria, Frequency, Incontinence Musculoskeletal: Denies: Joint Pain, Joint stiffness, Joint swelling, Joint Tenderness Skin: Denies: Rash, Wounds Neurological: Denies: Difficulty swallowing, Focal weakness, Numbness, Tingling Psychiatric: Denies: Anxiety, Depression, Homicidal Ideations, Suicidal Ideations Hematologic/ Lymphatic: Denies: Easy Bruising, Easy Bleeding VTE Information - Inpt Only VTE Present on Admission: No VTE Pharm Prophylaxis ordered?: Yes - Physical Exam General: Alert, Oriented x3, Cooperative, No apparent distress HEENT: Atraumatic, PERRLA, EOMI, Normocephalic Oral: Moist Mucosa Neck: Supple, No JVD Lungs: Clear to auscultation, Normal air movement Cardiovascular: Regular rate, Regular Rhythm, Normal S1, Normal S2, No murmurs Abdomen: Bowel Sounds Present, Soft, Non Tender, Non-Distended, No Hepato-splenomegaly Extremities: No edema Skin: No rashes, No breakdown Musculoskeletal: No Tenderness to Palpation of Joints or Extremities Neurological: Cranial nerves II-XII grossly intact, Neuro grossly intact, - - Occasional restlessness of his legs Psych/Mental Status: Normal Affect, Appropriate Vital Signs Temp Pulse Resp BP Pulse Ox 98 F 69 18 94/48 L 99 12/16/18 06:57 12/16/18 08:29 12/16/18 08:29 12/16/18 06:57 12/16/18 08:29 Oxygen Delivery Method Room Air Weight: 95.6 kg Body Mass Index (BMI) 31.1 Laboratory Tests Past 24 Hrs 12/16/18 12/16/18 12/16/18 07:03 07:03 07:03 WBC 5.4 RBC 4.65 Hgb 13.8 Hct 40.1 MCV 86.2 MCH 29.7 MCHC 34.4 RDW Std Deviation 40.4 RDW Coeff of Srinivasa 12.9 Plt Count 297 MPV 10.9 Immature Gran % (Auto) 0.200 Neut % (Auto) 48.0 Lymph % (Auto) 41.4 H [place] % (Auto) 6.9 Eos % (Auto) 2.2 Baso % (Auto) 1.3 H Absolute Neuts (auto) 2.6 Absolute Lymphs (auto) 2.22 Nucleated RBC % 0 D-Dimer Quant (PE/DVT) < 0.27 L Sodium 139 Potassium 4.6 Chloride 109 H Carbon Dioxide 20.0 L Anion Gap 10 BUN 18 Creatinine 0.96 Estim Creat Clear Calc 109.45 Est GFR (MDRD) Af Amer 116 Est GFR (MDRD) Non-Af 96 BUN/Creatinine Ratio 18.8 Glucose 110 H Calcium 8.9 Total Bilirubin Direct Bilirubin AST ALT Alkaline Phosphatase Troponin I < 0.015 Total Protein Albumin Globulin Lipase 12/16/18 12/16/18 07:03 07:03 WBC RBC Hgb Hct MCV MCH MCHC RDW Std Deviation RDW Coeff of Srinivasa Plt Count MPV Immature Gran % (Auto) Neut % (Auto) Lymph % (Auto) [place] % (Auto) Eos % (Auto) Baso % (Auto) Absolute Neuts (auto) Absolute Lymphs (auto) Nucleated RBC % D-Dimer Quant (PE/DVT) Sodium Potassium Chloride Carbon Dioxide Anion Gap BUN Creatinine Estim Creat Clear Calc Est GFR (MDRD) Af Amer Est GFR (MDRD) Non-Af BUN/Creatinine Ratio Glucose Calcium Total Bilirubin 0.20 Direct Bilirubin 0.08 AST 82 H ALT 158 H Alkaline Phosphatase 125 H Troponin I Total Protein 7.7 Albumin 3.7 Globulin 4.0 Lipase 186 Assessment/Plan All Active Problems (Last Updated 03/23/18 @ 20:24 by Satnam Chappell MD) Chest pain (Acute) Acute kidney injury (Acute) 33 year old M with PMHx of hereditary spastic paraplegia, CAD status post stents, who comes in with complaints of chest pain that happened at 1 AM on the day of admission 1. Chest pain, atypical, history of CAD status post stent, admitting EKG shows no acute ST-T changes, troponins are negative Plan: Admit to PCU, monitor on telemetry, trend troponins, stress echo, continue on Home medications -Plavix, lisinopril, beta-alexandria, Crestor 2. Hypertension, controlled, continue with home regimen including lisinopril and metoprolol 3. Hyperlipidemia: Continue home statin regimen 4. DVT PPx- early ambulation Code Visit OBSV E&M: 91290 Initial observation care L2
--- NOTE | 2018-12-16 10:46 | STEWCON_ITS ---
Reason For Study: Chest Pain Stress Results Protocol: Dobutamine Stress Echo Maximum Predicted HR: 187 bpm Target HR: 159 bpm % Maximum Predicted HR: 73 % DurationHeart Rate Stage (mm:ss) (bpm) BP Comment Baseline 82 117/71Mild Chest Pain; Diluted Definity 5 ML Given DSE 10 MCG 3:30 75 118/61Mild Chest Pain DSE 20 MCG 3:00 90 106/63Mild Chest Pain DSE 30 MCG 3:00 81 116/64Mild Chest Pain; Atropine 0.5 MG IVP DSE 40 MCG 5:02 136 130/71Mild Chest Pain; Atroping 0.5 MG IVP Recovery 100 107/57Mild Chest Pain Stress Duration: 14:32 mm:ss Maximum Stress HR: 136 bpm METS: 1 Baseline Echocardiogram Findings The estimated ejection fraction is 65 %. Stress Echo Wall motion Data Resting WM Intermediate WM Stress WM Resting Wall Motion Wall Motion Stress No regional wall motion No regional wall motion abnormalities noted. abnormalities noted. EKG Data The baseline ECG displays normal sinus rhythm. The patient was titrated from 10 mcg to a maximum of 40 mcg of dobutamine during the stress. The maximum heart rate attained was 136 beats per minute. This was 72% of maximum predicted heart rate. During dobutamine infusion, there were no ST or T wave changes noted to suggest ischemia. No arrhythmias noted. No clinical angina was noted. Interpretation Summary The estimated ejection fraction is 65 %. Normal, adequate, dobutamine echocardiogram. Negative for ischemia by EKG and echocardiographic criteria. Although patient did not reach target heart rate, she had an excellent rate pressure product of 14,300. No arrhythmias noted. Patient had atypical mild chest pain prior to the initiation of her dobutamine infusion, which did not worsen during infusion and resolved during recovery. Final LVEF is 75%. Decreased sensitivity due to poor echo windows requiring Definity agent. Test terminated due to maximum doses of medications given. No complications. The study was technically difficult. Contrast injection was performed. Ordering Physician: Sunitha Torres Referring Physician: Suleman Tomas Performed By: Linda Jorge RDCS
--- NOTE | 2018-12-16 11:15 | EKG12_ITS ---
Test Reason : CP Blood Pressure : / mmHG Vent. Rate : 082 BPM Atrial Rate : 082 BPM P-R Int : 166 ms QRS Dur : 102 ms QT Int : 370 ms P-R-T Axes : 043 047 042 degrees QTc Int : 432 ms Normal sinus rhythm Normal ECG Confirmed by SULEIMAN JUNE ([id number]), makeup editor JUAN CHEN ([id number]) on 12/19/2018 1:13:16 PM Referred By: MARÍA Confirmed By:SULEIMAN JUNE
[2018-12-16] MEDS: Acetaminophen 325 MG Tablet 650 MG PO (13:47)
[2018-12-16] MEDS: Heparin Injection (Vial) 5,000 UNIT/ML VIAL 5000 UNIT SC (13:48)
--- NOTE | 2018-12-16 13:54 | DCINST_ITS ---
- Discharge Diagnoses Current Active Problems: Current Active and Chronic Problems (Last Updated 03/23/18 @ 20:24 by Satnam Chappell MD) Chest pain (Acute) Reason(s) for Visit for Discharge Instructions: Chest pain You will use the following diet at home:: Cardiac Your food should be the consistency of: Regular Your liquids should be the consistency of: Regular/Thin Discharge Activity: Return to Normal Activity Additional Instructions: Continue to take all your medications as prescribed. Increase your omeprazole to twice day. Avoid eating late. Follow-up within 1-2 weeks. Allergies/Adverse Reactions: Allergies Penicillins [PCN] Adverse Reaction (Verified 12/16/18 07:06) Unknown Medications to take at Discharge Clopidogrel Bisulfate [Clopidogrel] 75 mg PO DAILY 07/12/18 Metoprolol Tartrate [Lopressor (beta alexandria)] 100 mg PO BID 07/12/18 Quetiapine Fumarate 800 mg PO QHS 07/12/18 Rosuvastatin Calcium 40 mg PO DAILY 07/12/18 Lisinopril 5 mg PO DAILY 12/16/18 Primary Care Physician: Care Physician,No Primary [Primary Care Provider] - Please follow up with your Primary Care Physician in: within 1-2 weeks Test Results: Test results from this visit will be discussed in further detail at your follow- up appointment, if applicable. Proposed Discharge Date: 12/16/18
--- NOTE | 2018-12-16 13:56 | PCM.DC.SUM ---
Discharge Date and Diagnosis Date of Admission: 12/16/18 Date of Discharge: 12/16/18 - Primary Discharge Diagnosis Active and Suspected Problems (Last Updated 03/23/18 @ 20:24 by Satnam Chappell MD) Chest pain (Acute), ACS r/o Possible GERD - Secondary Discharge Diagnosis Chronic Problems (Last Updated 03/23/18 @ 20:24 by Satnam Chappell MD) Hereditary spastic paraplegia (Chronic) Gastroenteritis (Chronic) Hospital Course and Treatment Imaging Results: 12/16/18 10:46 Stress Test Echo W/Contrast [ECHO] Routine - Negative for acute ischemia Clinical Impression(s) from Imaging Studies Chest X-Ray 12/16/18 07:27 IMPRESSION: Normal x-ray examination of the chest. Electronically Signed: Parmjit Maggie, at 8:23 EDT , Service support , None Operations: None Procedures: 2-D Echocardiogram, Stress test Summary of Care Provided: 33 year old M with PMHx of hereditary spastic paraplegia, CAD status post stents, who comes in with complaints of chest pain that happened at 1 AM on the day of admission. Admitting EKG showed no acute ST-T changes, troponinsx 3 were negative. He was admitted to the telemetry floor. No events on telemetry. He underwent stress echo that showed no acute ischemia. He remained stable and was advised to increase his [id number] omeprazole twice a day and follow-up with his primary care doctor. Subjective: See H&P of the day Objective: See H&P of the day - Physical Exam Vital Signs Temp Pulse Resp BP Pulse Ox 98.4 F 95 18 126/69 H 94 12/16/18 13:40 12/16/18 13:40 12/16/18 13:40 12/16/18 13:40 12/16/18 13:40 Oxygen Delivery Method Room Air Weight: 89.7 kg Body Mass Index (BMI) 29.2 Laboratory Tests Past 24 Hrs 12/16/18 12/16/18 12/16/18 07:03 07:03 07:03 WBC 5.4 RBC 4.65 Hgb 13.8 Hct 40.1 MCV 86.2 MCH 29.7 MCHC 34.4 RDW Std Deviation 40.4 RDW Coeff of Srinivasa 12.9 Plt Count 297 MPV 10.9 Immature Gran % (Auto) 0.200 Neut % (Auto) 48.0 Lymph % (Auto) 41.4 H [place] % (Auto) 6.9 Eos % (Auto) 2.2 Baso % (Auto) 1.3 H Absolute Neuts (auto) 2.6 Absolute Lymphs (auto) 2.22 Nucleated RBC % 0 D-Dimer Quant (PE/DVT) < 0.27 L Sodium 139 Potassium 4.6 Chloride 109 H Carbon Dioxide 20.0 L Anion Gap 10 BUN 18 Creatinine 0.96 Estim Creat Clear Calc 109.45 Est GFR (MDRD) Af Amer 116 Est GFR (MDRD) Non-Af 96 BUN/Creatinine Ratio 18.8 Glucose 110 H Calcium 8.9 Total Bilirubin Direct Bilirubin AST ALT Alkaline Phosphatase Troponin I < 0.015 Total Protein Albumin Globulin Lipase 12/16/18 12/16/18 12/16/18 07:03 07:03 10:28 WBC RBC Hgb Hct MCV MCH MCHC RDW Std Deviation RDW Coeff of Srinivasa Plt Count MPV Immature Gran % (Auto) Neut % (Auto) Lymph % (Auto) [place] % (Auto) Eos % (Auto) Baso % (Auto) Absolute Neuts (auto) Absolute Lymphs (auto) Nucleated RBC % D-Dimer Quant (PE/DVT) Sodium Potassium Chloride Carbon Dioxide Anion Gap BUN Creatinine Estim Creat Clear Calc Est GFR (MDRD) Af Amer Est GFR (MDRD) Non-Af BUN/Creatinine Ratio Glucose Calcium Total Bilirubin 0.20 Direct Bilirubin 0.08 AST 82 H ALT 158 H Alkaline Phosphatase 125 H Troponin I < 0.015 Total Protein 7.7 Albumin 3.7 Globulin 4.0 Lipase 186 12/16/18 13:10 WBC RBC Hgb Hct MCV MCH MCHC RDW Std Deviation RDW Coeff of Srinivasa Plt Count MPV Immature Gran % (Auto) Neut % (Auto) Lymph % (Auto) [place] % (Auto) Eos % (Auto) Baso % (Auto) Absolute Neuts (auto) Absolute Lymphs (auto) Nucleated RBC % D-Dimer Quant (PE/DVT) Sodium Potassium Chloride Carbon Dioxide Anion Gap BUN Creatinine Estim Creat Clear Calc Est GFR (MDRD) Af Amer Est GFR (MDRD) Non-Af BUN/Creatinine Ratio Glucose Calcium Total Bilirubin Direct Bilirubin AST ALT Alkaline Phosphatase Troponin I Pending Total Protein Albumin Globulin Lipase Discharge Diet: Low fat/ Low Cholesterol, 2000 mg Sodium Diet Discharge Activity: Return to Normal Activity Home Medications: Medications to take at Discharge Clopidogrel Bisulfate [Clopidogrel] 75 mg PO DAILY 07/12/18 Metoprolol Tartrate [Lopressor (beta alexandria)] 100 mg PO BID 07/12/18 Quetiapine Fumarate 800 mg PO QHS 07/12/18 Rosuvastatin Calcium 40 mg PO DAILY 07/12/18 Lisinopril 5 mg PO DAILY 12/16/18 Primary Care Physician: Care Physician,No Primary [Primary Care Provider] - Please follow up with your Primary Care Physician in: within 1-2 weeks Disposition: Home Minutes spent on discharge:: 25 Patient Condition:: Stable Medical Necessity - Tobacco Use Smoking Status: Current every day smoker Tobacco Use: Non-smoker Meaningful Use Info Meaningful Use Diagnoses (Choose all that apply): None applicable Code Visit OBSV E&M: 82024 Observation care discharge
== END 2018-12-16 15:45 | disposition home or self-care (01) ==
LOC: ED 07:37 → PCU 09:30
PROVIDERS: Admitting Provider Internal Medicine; Emergency Provider Emergency Medicine; Visit Provider Internal Medicine
DX: R07.89 Other chest pain (principal); R11.0 Nausea; R06.02 Shortness of breath; I25.2 Old myocardial infarction; I10 Essential (primary) hypertension; G11.4 Hereditary spastic paraplegia; I25.10 Atherosclerotic heart disease of native coronary artery without angina pectoris; F17.210 Nicotine dependence, cigarettes, uncomplicated; E78.5 Hyperlipidemia, unspecified; Z95.5 Presence of coronary angioplasty implant and graft; Z79.02 Long term (current) use of antithrombotics/antiplatelets; Z79.899 Other long term (current) drug therapy; Z82.49 Family history of ischemic heart disease and other diseases of the circulatory system
CPT/HCPCS: 36415; 71045; 80048; 80076; 83690; 84484; 85025; 85379; 93005; 93017; 93350; 96361; 96372; 96374; 99218; 99285; J7040; Q9957; A4216; C8928; G0378; J2405

== ENCOUNTER 2019-01-03 08:17 | Emergency (ER) | payer OTHER, SELFPAY ==
[2018-12-16 10:29] VITALS: BMI 29.2
[2019-01-03 08:18] VITALS: BP 157/127; PULSE 122; RESP 20; TEMP 36.6; O2SAT 95; BMI 29.9
--- NOTE | 2019-01-03 08:37 | EKG12_ITS ---
Test Reason : NEURO SYM Blood Pressure : / mmHG Vent. Rate : 112 BPM Atrial Rate : 112 BPM P-R Int : 140 ms QRS Dur : 090 ms QT Int : 338 ms P-R-T Axes : 045 038 043 degrees QTc Int : 461 ms Sinus tachycardia Otherwise normal ECG Confirmed by SULEIMAN JUNE ([id number]), acquisition editor JAMES CONNELLY ([id number]) on 01/10/2019 10:12:45 AM Referred By: JOSE Confirmed By:SULEIMAN JUNE
--- NOTE | 2019-01-03 08:51 | ED.VIS.GEN ---
History of Present Illness Chief Complaint: Other, Pain/Inj Detail of Chief Complaint: Tremors, feet on fire, shortness of breath Informant: Patient Onset: Weeks Timing: Continuous - Several days Quality: Varies read narrative Location: Varies read narrative Current Severity: Mild Maximum Severity: Moderate Worsened by: Nothing per patient Relieved by: Nothing per patient Associated Symptoms: Diaphoresis, shortness of breath, feet burning and myalgias Narrative: Patient is a 33-year-old male with history of coronary disease, hypertension, hypercholesterolemia who smokes daily and presents because of increased tremors, feet burning, cold sweats and dyspnea. He denies weight gain or weight loss. He denies documented fever. He denies ocular, visual or auditory symptoms. He denies chest discomfort. He denies abdominal pain, intolerance to food or heartburn. He denies black or maroon stool. He denies nausea or vomiting. He denies urologic symptoms. Prior similar symptoms: Yes - Admitted December 16 Recent Illness/Hospitalization: Yes - Past Medical History (1) History of coronary artery disease Status: Acute (2) Acute kidney injury Status: Acute (3) Gastroenteritis Status: Chronic (4) Hereditary spastic paraplegia Status: Chronic Past Medical History - Allergies and Home Meds Allergies/Adverse Reactions: Allergies Penicillins [PCN] Adverse Reaction (Verified 01/03/19 08:23) Unknown Primary Care Physician: Care Physician,No Primary [Primary Care Provider] - Prior records reviewed: Yes - Viewed ER and hospital course for admission December 16 Surgical History: appendectomy, - - Plate in left ankle. left hand. Lives: Alone, - - Presently from Smoking Status: Current every day smoker Alcohol: None Drugs: None Review of Systems General: Denies: Chills, Fever, Malaise, Subjective, Sweats, Weight loss, - Eyes: Denies: Visual changes - bilaterally, Blurred Vision - bilaterally ENT: Denies: Bilateral ear pain, Rhinorrhea, Sore throat Cardiovascular: Reports: Palpitations Respiratory: Reports: Dyspnea, Dyspnea on exertion. Denies: Cough, Sputum, Orthopnea, Paroxysmal nocturnal dyspnea Musculoskeletal: Reports: Myalgias, Extremity Pain - Feet burning, - - Spasticity of muscles. Denies: Arthralgias, Neck pain, Back pain, Swelling Skin: Denies: Rash, Wounds Neurological: Reports: Weakness. Denies: Headache, Parasthesia, Numbness, -, - Endocrine: Denies: Polyuria, Polydipsia Hematologic: Denies: Easy bruising, Easy bleeding Allergy: Denies: Uticaria, Swelling of the mouth, Swelling of the tongue Physical Exam Vital Signs/Narrative: Vital Signs Temp Pulse Resp BP Pulse Ox 01/03/19 08:18 97.8 F 122 H 20 H 157/127 H 95 Inital Vital Signs reviewed: Yes General: Well nourished, Well developed, Acute Distress - Patient on left side in semi- position Head: Normocephalic, Atraumatic Eyes: Perrl, EOMI ENT: Moist mucous membranes, No rhinorrhea Neck: Supple, Nontender Cardiovascular: Regular rate, Regular rhythm, No murmurs Respiratory: No distress, CTA bilaterally, Chest nontender Abdomen: Soft, Nontender, Nondistended, Normal bowel sounds, No masses, - - Trickle scar noted for appendectomy and volvulus Back: Nontender, Normal Inspection Extremities: Nontender, No edema, - - There is no asymmetry, swelling, discoloration, leg vein distention, palpable cords or tenderness along the distribution of the deep venous system. DP and PT pulses are 2+ and symmetric.. Negative for: Tenderness, Edema Skin: Normal color, No rash, Diaphoresis, No Trauma. Negative for: Cyanosis, Jaundice Neurological: Alert, Oriented x3, Cranial nerves II-XII grossly intact, Normal Strength, Normal Sensation Psychological: Normal affect, Normal Mood Diagnostic/Tx/Re-eval Chest X-Ray - ED: 2 View, Read by ED Physician, Normal, Heart, Lungs, Mediastinum, Bony Structures, No Acute Disease Impressions Chest X-Ray 01/03/19 08:55 IMPRESSION: Normal x-ray examination of the chest. Electronically Signed: Parmjit Serrano, at 9:13 EDT , Service support , 01/03/19 08:55 Chest PA and Lateral [RAD] Stat Laboratory Results 01/03/19 01/03/19 08:21 08:21 WBC 4.4 RBC 5.05 Hgb 15.2 Hct 43.2 MCV 85.5 MCH 30.1 MCHC 35.2 RDW Std Deviation 41.2 RDW Coeff of Srinivasa 13.2 Plt Count 201 MPV 10.6 Immature Gran % (Auto) 0.200 Neut % (Auto) 60.0 Lymph % (Auto) 26.9 [place] % (Auto) 10.9 H Eos % (Auto) 1.1 Baso % (Auto) 0.9 Absolute Neuts (auto) 2.6 Absolute Lymphs (auto) 1.18 Nucleated RBC % 0 ESR 19 H Sodium 136 Potassium 4.3 Chloride 105 Carbon Dioxide 22.0 Anion Gap 9 BUN 11 Creatinine 0.84 Estim Creat Clear Calc 125.08 Est GFR (MDRD) Af Amer 134 Est GFR (MDRD) Non-Af 111 BUN/Creatinine Ratio 13.1 Glucose 111 H Calcium 9.2 Total Bilirubin 0.80 AST 156 H ALT 185 H Alkaline Phosphatase 159 H Troponin I < 0.015 Total Protein 8.3 H Albumin 3.7 Globulin 4.6 H Albumin/Globulin Ratio 0.8 L - Rhythm Strip Rhythm Strip: Sinus Tach Rate: 109 Ectopy: None - EKG Initial EKG Interpretation: Sinus Tachycardia - Ventricular rate is 112. TN interval is 140 ms. QRS durations 90 ms. QT duration is 338 ms. [place] is normal. Other than sinus tachycardia the EKG is normal. There are no ischemic changes noted. Prior: Unchanged - Medical Decision Making Patient appears uncomfortable. He is diaphoretic. With history of coronary disease and multiple risk factors with complaints of dyspnea on exertion EKG was obtained to evaluate for acute ischemia. Also obtain troponin and baseline blood work. Records from December 16 were reviewed. Patient was medicated with 50 mill grams of Toradol IV push, 4 mg of morphine IV push and 5 mg Valium p.o. He was reassessed at 1035. He is no longer diaphoretic. He is smiling. He states he does have insurance. He does not have a primary care physician. He was referred to Dr. Ryanne Reynolds. ED Disposition - Plan for ED Patient: Disposition: Home or Assisted Living Diagnosis: Neuropathy of both feet, Hereditary spastic paraplegia Instructions: NEUROPATHY, Peripheral Prescriptions: Naproxen [Naprosyn] 500 mg PO BID #14 tab Prescription Printed Referrals: Care Physician,No Primary [Primary Care Provider] - Ryanne Reynolds DO [STAFF PHYSICIAN] - 5-7 Days
[2019-01-03 08:54] LABS: Erythrocyte Sedimentation Rate 19 mm/hr (0-15)
[2019-01-03 08:55] LABS: Absolute Lymphocyte Count 1.18 X10^3/uL (0.83-4.51); Absolute Neutrophil Count 2.6 X10^3/uL (2.0-7.7); Basophil# 0.04 X10^3/uL; Basophil% 0.9 % (0-1); Eosinophil# 0.05 X10^3/uL; Eosinophils% 1.1 % (0-5); Hematocrit 43.2 % (40-54); Hemoglobin 15.2 g/dL (13.0-16.5); Lymphocyte # 1.18 X10^3/ul (4.0); Lymphocyte % 26.9 % (19-41); Mean Corp Hgb Conc 35.2 g/dL (32-36); Mean Corpuscular Hgb 30.1 pg (27.0-32.0); Mean Corpuscular Volume 85.5 fL (80-94); Mean Platelet Vol. 10.6 fl (6.2-12.0); Monocyte# 0.48 X10^3/uL; Monocyte% 10.9 % (0-10); NRBC Flagged by Analyzer 0 % (0-5); Neutrophil # 2.63 X10^3/uL (2.7-7.7); Platelet Count 201 K/mm3 (150-450); RBC Distribution Width CV 13.2 % (11.6-14.6); RBC Distribution Width SD 41.2 fl (35.1-43.9); Red Blood Count 5.05 M/mm3 (4.6-6.2); White Blood Count 4.4 K/mm3 (4.4-11.0)
--- NOTE | 2019-01-03 08:55 | RAD_ITS ---
STUDY: X-RAY CHEST REASON FOR EXAM: Male, 33 years old. Weakness, shortness of breath and chest pain. TECHNIQUE: PA and lateral views of the chest. COMPARISON: Comparison is made to prior examination dated December 16, 2018. FINDINGS: The lungs are clear and expanded. Scattered calcified granulomas. There is no demonstrated pleural abnormality. Normal size heart. Normal mediastinum and eliana. Normal visualized pulmonary arteries. Normal visualized aortic arch and descending thoracic aorta. Normal visualized thoracic spine. Normal visualized ribs, clavicles, and shoulders. There is no demonstrated abnormality of the visualized soft tissue structures of the upper abdomen. RAD/Chest PA and Lateral IMPRESSION: Normal x-ray examination of the chest. Electronically Signed: Parmjit Serrano, at 9:13 EDT , Service support ,
[2019-01-03 09:04] LABS: ALB/GLOB Ratio 0.8 RATIO (0.9-2.4); AST(SGOT) 156 U/L (15-37); Alanine Aminotransfer ALT/SGPT 185 U/L (16-61); Albumin, Serum 3.7 g/dL (3.2-5.0); Alkaline Phosphatase 159 U/L (45-117); Anion Gap 9 (5-15); BUN 11 mg/dL (7-18); BUN/Creat Ratio 13.1 RATIO (10-20); Calcium,Total 9.2 mg/dL (8.5-10.1); Chloride 105 mmol/L (98-107); Creatinine, Serum 0.84 mg/dL (0.70-1.30); EST Glomerular Filtration Rate 111 mL/min (>60); Est Glom Filt Rate - Afr Amer 134 mL/min (>60); Estimated Creatinine Clearance 125.08 ml/min; Globulin 4.6 g/dL (2.2-4.2); Glucose 111 mg/dL (74-106); Potassium 4.3 mmol/L (3.5-5.1); Protein, Total 8.3 g/dL (6.4-8.2); Sodium Level 136 mmol/L (136-145)
[2019-01-03 09:42] VITALS: BP 146/118; PULSE 98; RESP 22; O2SAT 96
[2019-01-03] MEDS: Ketorolac 15 MG/ML Vial IV (10:05)
[2019-01-03] MEDS: diazePAM 5 MG Tablet PO (10:05)
[2019-01-03 10:22] VITALS: BP 135/102; PULSE 100; RESP 18; O2SAT 96
--- NOTE | 2019-01-03 11:10 | CM.ED ---
Social Work Consult: Unable to afford prescription and limited transportation. Informant: RNItzel Met with patient in room. Patient stating to have $20 and to be unable to afford prescription. This social media marketing manager inquiring as to if patient knows how much patient prescription, Neproxen cost. Patient stating to be unsure of cost. Patient stating to typically utilize [facility] as main pharmacy but is open to the retail pharmacy at [facility]. Patient stating to also not have a ride home from the ED. This social media marketing manager inquiring if there is anyone that is able to provide transportation, patient stating to have no support. This social media marketing manager inquiring what patient typically does for transportation. Patient stating to have a truck but the truck is at patient ex-wives house and no one is able to come get me. Telephone call to [facility] transportationJaimie. [facility] transportation is able to pick patient up at 12, but unable to stop for patient to fill prescription at [facility]. Telephone call to [facility] retail pharmacySanjiv. Sanjiv does not believe prescription will be more then $20. Patient stating to have a job and to be between pay checks. This social media marketing manager collaborating with patient on plan. 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 Patient thanking this social media marketing manager. All questions answered. Cedric BALDWIN, TSERING
== END 2019-01-03 11:17 | disposition home or self-care (01) ==
PROVIDERS: Emergency Provider Emergency Medicine
DX: G62.9 Polyneuropathy, unspecified (principal); G11.4 Hereditary spastic paraplegia; E78.00 Pure hypercholesterolemia, unspecified; I10 Essential (primary) hypertension; I25.10 Atherosclerotic heart disease of native coronary artery without angina pectoris; Z88.0 Allergy status to penicillin; F17.200 Nicotine dependence, unspecified, uncomplicated
CPT/HCPCS: 71046; 80053; 84484; 85025; 85652; 93005; 96374; 99285; A4216

== ENCOUNTER 2019-08-23 23:51 | Inpatient (IN) | payer MEDICAID, SELFPAY ==
[2019-08-23 23:05] VITALS: BP 154/75; PULSE 125; RESP 17; TEMP 36.9; O2SAT 96; BMI 27.1
--- NOTE | 2019-08-23 23:19 | HP.PCM_ITS ---
History of Present Illness Date of Admission: 08/23/19 Chief Complaint: Alcohol abuse The patient is a 34 year old M with a PMH as below who presents with alcohol abuse. He states that he drinks about a gallon a day of liquor and his last drink was sometime yesterday. He went to [facility] and they contacted 180 and 180 recommended inpatient detox. He was transferred here for detox. He does express that he wants to quit drinking and that he would like to undergo detox. He denies any fevers or chills, chest pain or shortness of breath or cough. Past Medical History Past Medical History (Chronic Problems): Chronic Problems (Last Updated 03/23/18 @ 20:[address] Satnam Chappell MD) Hereditary spastic paraplegia (Chronic) Gastroenteritis (Chronic) Medical History: Medical History (Last Updated 03/23/18 @ 20:[address] Satnam Chappell MD) CAD (coronary artery disease) I25.10 Hypertension I10 Allergies Penicillins [PCN] Adverse Reaction (Verified 01/03/19 08:23) Unknown Home Medications: Ambulatory Orders Medication Instructions Recorded Clopidogrel Bisulfate [Clopidogrel] 75 mg PO DAILY 07/12/18 Metoprolol Tartrate [Lopressor 100 mg PO DAILY 07/12/18 (beta alexandria)] Rosuvastatin Calcium 40 mg PO DAILY 07/12/18 Lisinopril 20 mg PO DAILY 12/16/18 Surgical History: appendectomy, - - Plate in left ankle. left hand. Psychiatric History: Bipolar Smoking Status: Current every day smoker Tobacco Use: Cigarettes Alcohol: Heavy Drugs: None - *Family History Maternal Family History: Family History (Last Updated 03/23/18 @ 20:[address] Satnam Chappell MD) Mother Emphysema of lung Father Hereditary spastic paraplegia Review of Systems Constitutional: Denies: Chills, Fever, Weight Change HEENT: Denies: Head Aches, Sinus Congestion, Sinus Drainage Cardiovascular: Denies: Chest Pain, Palpitations Respiratory: Denies: Cough, Shortness of breath at rest, Sputum production Gastrointestinal: Reports: Nausea. Denies: Abdominal Pain, Vomiting Genitourinary: Denies: Dysuria Musculoskeletal: Denies: Joint Pain, Joint Tenderness Skin: Denies: Rash, Wounds Neurological: Reports: Tremor. Denies: Focal weakness, Numbness, Tingling Psychiatric: Denies: Anxiety, Depression Hematologic/ Lymphatic: Denies: Easy Bruising, Easy Bleeding VTE Information - Inpt Only VTE Present on Admission: No - Physical Exam Vitals/I&O's: Weight: 188 lb 11.451 oz Body Mass Index (BMI) 27.1 General: Alert, Oriented x3, Cooperative, - - Tremor and is feeling uncomfortable with withdrawal symptoms HEENT: Atraumatic, PERRLA, EOMI, Normocephalic Oral: Dry Mucosa Neck: Supple, No JVD Lungs: Clear to auscultation, Normal air movement, No rhonchi, No wheeze, No rales, Diminished Cardiovascular: Regular Rhythm, Normal S1, Normal S2, No murmurs, Tachycardic Abdomen: Soft, Non Tender, Non-Distended, No Hepato-splenomegaly Extremities: No edema, Capillary Refill Less than 3 Seconds Skin: No rashes, No breakdown Neurological: Neuro grossly intact, Sensory exam intact to light touch and pain Psych/Mental Status: Agitated, Anxious, Restless Current Medications Dicyclomine HCl (Bentyl) 20 mg PO Q6H PRN PRN PRN Reason: abdominal discomfort Folic Acid (Folic Acid) 1 mg PO DAILY@0800 [facility] Gabapentin (Neurontin) 300 mg PO Q8H PRN PRN PRN Reason: moderate to severe anxiety Hydroxyzine Pamoate (Vistaril Pamoate Capsule) 50 mg PO Q4H PRN PRN PRN Reason: mild anxiety Loperamide HCl (Imodium) 2 mg PO Q4H PRN PRN PRN Reason: LOOSE STOOLS Nicotine (Nicoderm Cq (Pbkc)) 14 mg TRANSDERM. DAILY [facility] Ondansetron HCl (Zofran) 8 mg PO Q8H PRN PRN PRN Reason: NAUSEA Phenobarbital (Phenobarbital) 0 mg PO UD [facility]; Taper Stop: 08/28/19 04:14 Thiamine HCl (Vitamin B1) 100 mg PO DAILYCM CLOTILDE Trazodone HCl (Desyrel) 100 mg PO QHS PRN PRN Reason: INSOMNIA Assessment/Plan All Active Problems (Last Updated 03/23/18 @ 20:[address] Satnam Chappell MD) Chest pain (Acute) History of coronary artery disease (Acute) Acute kidney injury (Acute) 1. Alcohol withdrawal/tobacco abuse -Drinks about a gallon of liquor a day he says -Last drink was yesterday -Blood alcohol at [facility] was in the 236 -Continue with alcohol withdrawal protocol with phenobarbital -Encouraged since cessation, will provide a nicotine patch 2. CAD status post stents/HTN/HLD -Blood pressure is stable, he is tachycardic likely agitation from his alcohol withdrawal -We will continue with his home medications DVT: Ambulation Inpatient E&M: 02088 Init Hosp L2
[2019-08-23 23:21] VITALS: BMI 27.1
[2019-08-23 23:34] VITALS: BP 130/96; PULSE 125; RESP 17; TEMP 36.9; O2SAT 96
[2019-08-23] MEDS: Phenobarbital 32.4 MG Tablet 64.8 MG PO (23:46)
[2019-08-24 03:00] VITALS: BP 164/116; PULSE 114; RESP 16; TEMP 36.7; O2SAT 97
[2019-08-24] MEDS: Phenobarbital 32.4 MG Tablet 64.8 MG PO ×6 (03:37→23:34)
[2019-08-24] MEDS: hydrOXYzine PAM 25 MG Capsule 50 MG PO ×2 (03:42→23:34)
[2019-08-24] MEDS: Gabapentin 300 MG Capsule PO (05:55)
[2019-08-24] MEDS: Ondansetron 8 MG Tablet PO ×2 (05:55→23:34)
[2019-08-24 06:57] VITALS: BP 147/93; PULSE 105; RESP 18; TEMP 36.9; O2SAT 96
[2019-08-24] MEDS: Thiamine Hydrochloride 100 MG Tablet PO (09:31)
[2019-08-24] MEDS: Folic Acid 1 MG Tablet PO (09:31)
[2019-08-24 09:33] VITALS: PULSE 105
[2019-08-24] MEDS: Metoprolol Tartrate 100 MG Tablet PO (09:33)
[2019-08-24] MEDS: Lisinopril 20 MG Tablet PO (09:35)
[2019-08-24] MEDS: Ibuprofen 600 MG Tablet PO (10:55)
--- NOTE | 2019-08-24 10:59 | CASEMGMT ---
Social Work Telephone call from Jolly at [facility], Jolly plans to come and assess patient today. Updated PCU Lolly álvarez, BRANDON Hensley MSW, TSERING
--- NOTE | 2019-08-24 11:19 | PN_ITS ---
Reason for Visit: alcohol withdrawal Subjective: mild tremor BLUE. nausea this AM, zofran minimally effective. also VILLARREAL, back pain. Restless legs BL. No hallucinations or seizure. Vitals/I&O's: Vital Signs Temp Pulse Resp BP Pulse Ox 98.5 F 105 H 18 147/93 H 96 08/24/19 06:57 08/24/19 09:33 08/24/19 06:57 08/24/19 06:57 08/24/19 06:57 Oxygen Delivery Method Room Air Weight: 188 lb 11.451 oz Body Mass Index (BMI) 27.1 Intake and Output for Last 24 Hours 08/22/19 08/23/19 08/24/19 23:59 23:59 23:59 Intake Total 300 / 300 400 / 400 Output Total 425 / 425 100 / 100 Balance -125 / -125 300 / 300 General: Alert, Oriented x3, Cooperative HEENT: Atraumatic, PERRLA, EOMI, Normocephalic Neck: Supple, No JVD, Negative Carotid Bruits Lungs: Clear to auscultation, Normal air movement Cardiovascular: Regular rate, No murmurs Abdomen: Bowel Sounds Present, Soft, Non Tender Extremities: No edema, Capillary Refill Less than 3 Seconds Skin: No rashes, No breakdown Musculoskeletal: No Tenderness to Palpation of Joints or Extremities Neurological: Cranial nerves II-XII grossly intact Psych/Mental Status: Normal Affect, Appropriate, Alert and oriented to time, place, person, mood and affect Current Medications Acetaminophen (Tylenol) 650 mg PO Q6H PRN PRN PRN Reason: Pain or Fever Atorvastatin Calcium (Lipitor) 80 mg PO DAILY@2200 [facility] Dicyclomine HCl (Bentyl) 20 mg PO Q6H PRN PRN PRN Reason: abdominal discomfort Folic Acid (Folic Acid) 1 mg PO DAILY@0800 [facility] Last Admin: 08/24/19 09:31 Dose: 1 mg Documented by: Gabapentin (Neurontin) 300 mg PO Q8H PRN PRN PRN Reason: moderate to severe anxiety Last Admin: 08/24/19 05:55 Dose: 300 mg Documented by: Hydroxyzine Pamoate (Vistaril Pamoate Capsule) 50 mg PO Q4H PRN PRN PRN Reason: mild anxiety Last Admin: 08/24/19 03:42 Dose: 50 mg Documented by: Sodium Chloride () 250 mls @ 15 mls/hr IV .[id number] PRN PRN Reason: Saline Flush Sodium Chloride () 250 mls @ 15 mls/hr IV .[id number] PRN PRN Reason: Additional IVPB Infusion Ibuprofen (Motrin) 600 mg PO Q6H PRN PRN PRN Reason: Pain Score 1-10/10 Last Admin: 08/24/19 10:55 Dose: 600 mg Documented by: Lisinopril (Zestril) 20 mg PO DAILY [facility] Last Admin: 08/24/19 09:35 Dose: 20 mg Documented by: Loperamide HCl (Imodium) 2 mg PO Q4H PRN PRN PRN Reason: LOOSE STOOLS Metoprolol Tartrate (Lopressor (Beta Ramakrishna)) 100 mg PO DAILY [facility] Last Admin: 08/24/19 09:33 Dose: 100 mg Documented by: Nicotine (Nicoderm Cq (Pbkc)) 14 mg TRANSDERM. DAILY [facility] Last Admin: 08/24/19 09:36 Dose: Not Given Documented by: Ondansetron HCl (Zofran) 8 mg PO Q8H PRN PRN PRN Reason: NAUSEA Last Admin: 08/24/19 05:55 Dose: 8 mg Documented by: Phenobarbital (Phenobarbital) 97.2 mg PO Q4H [facility]; Taper Stop: 08/28/19 04:29 Last Admin: 08/24/19 09:31 Dose: 97.2 mg Documented by: Promethazine HCl (Phenergan Tablet) 12.5 mg PO Q6H PRN PRN PRN Reason: NAUSEA/VOMITING Sodium Chloride () 10 - 40 ml IV UD PRN PRN Reason: SALINE FLUSH [facility] ([facility]) [facility] Last Admin: 08/24/19 09:31 Dose: 100 mg Documented by: Trazodone HCl (Desyrel) 100 mg PO QHS PRN PRN Reason: INSOMNIA STROKE Vital Signs/Narrative: Vital Signs Pulse 08/24/19 09:33 105 H Medical Necessity - Tobacco Use Smoking Status: Current every day smoker Tobacco Use: Cigarettes Assessment/Plan All Active Problems (Last Updated 03/23/18 @ 20:[address] Satnam Chappell MD) Chest pain (Acute) History of coronary artery disease (Acute) Acute kidney injury (Acute) 1. Alcohol withdrawal - continue phenobarb taper. no hx w/d seizure. drinks 1/2 gallon liquor daily. 2. Tobacco abuse - nicotine abuse 3. CAD - atorvastatin, lisinopril, metoprolol 4. HTN - somewhat elevated, continue home meds. 5. HLD - statin DVT ppx: early ambulation This patient was seen by Yonas Guerra PA-C under the supervision of Doctor Bautista.
--- NOTE | 2019-08-24 13:14 | ADDICTION ---
This commercial lines underwriter received call from [employer] stating that patient was taken to [facility] from [facility] due to alcohol withdrawal symptoms. This commercial lines underwriter met with patient, obtained THERESA for [facility] and NOEL, provided biopsychosocial assessment and other related documentation to [facility] social worker psychiatric. This commercial lines underwriter updated patient's ASAM assessment indicating that he is appropriate for 4.0 Medically Managed Intensive Inpatient Services followed by direct admission to 3.5 Residential. Patient shared that he is not willing to engage in Residential treatment as I need to work and I would feel too bad if something happened to my parents. This commercial lines underwriter encouraged patient to reconsider residential recommendation, patient continued to refuse. He stated that he would like to move into income based housing in [place], [place]. Patient is actively engaged with [facility] at this time, has a research affiliate and is scheduled for MAT on 09.06.2019. This commercial lines underwriter left message with [facility] nurse to attempt to have patient's MAT appointment moved to Wednesday, 08.29.2019. This commercial lines underwriter collaborated with patient's research affiliate with [facility] who plans to visit with patient and this commercial lines underwriter tomorrow to continue to process discharge planning and safety planning as patient has a history of self-harm, per research affiliate's report.. Patient reports that he is going home following discharge on 08.26.2019. Hospital rn field case manager reported that he will be discharged on 08.26.2019 unless he goes into severe DT's and needs ongoing medical withdrawal management. This commercial lines underwriter will visit with patient tomorrow to continue with discharge planning. ASAM: LOC: 4.0 Medically Managed Intensive Inpatient Services Dimension1 Acute Intoxication and/or Withdrawal Potential Dimension2 Biomedical Conditions and Complications Dimension3 Emotional, Behavioral or Cognitive Conditions and Complications Dimension4 Readiness to Change Dimension5 Relapse, Continued Use or Continued Problem Potential Dimension6 Recovery/ Living Environment
--- NOTE | 2019-08-24 13:40 | ADDICTION ---
08/24/19 13:14 - Addiction Medicine by Jolly Cazares Arcenio Num: [id number] : 1985 Patient Age: 34 This hand sign writer received call from [employer] stating that patient was taken to [facility] from [facility] due to alcohol withdrawal symptoms. This hand sign writer met with patient, obtained THERESA for [facility] and [facility], provided biopsychosocial assessment and other related documentation to [facility] psychologist social. This hand sign writer updated patient's ASAM assessment indicating that he is appropriate for 4.0 Medically Managed Intensive Inpatient Services followed by direct admission to 3.5 Residential. Patient shared that he is not willing to engage in Residential treatment as I need to work and I would feel too bad if something happened to my parents. This hand sign writer encouraged patient to reconsider residential recommendation, patient continued to refuse. He stated that he would like to move into income based housing in [place], [place]. 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 This hand sign writer spoke with [facility] nurse to attempt to have patient's MAT appointment moved to Wednesday, 08.29.2019. [facility] nurse to assess availability and will call this hand sign writer back. This hand sign writer collaborated with patient's windshield wiper repairer with [facility] who plans to visit with patient and this hand sign writer tomorrow at [facility] to continue to process discharge planning and safety planning as patient has a history of self-harm, per windshield wiper repairer's report. Patient reports that he does not have a primary care physician, this hand sign writer will refer patient to [facility] for ongoing medical care and consultation. Contact information, patient registration form and authorization form provided to patient. Patient reports that he is going home following discharge on 08.26.2019. Hospital caseworker intake reported that he will be discharged on 08.26.2019 unless he goes into severe DT's and needs ongoing medical withdrawal management. ASAM: LOC: 4.0 Medically Managed Intensive Inpatient Services Dimension1 Acute Intoxication and/or Withdrawal Potential Severity Ratin-very severe Patient reports date of last use was 08.23.2019. He reports that he had consumed 3 gallons of vodka within 2 days. He reports a long- term history of alcohol abuse. Patient reports the following w/d symptoms: tremors, nausea, vomiting, diarrhea, sweating, high blood pressure and dizziness. Patient is currently engaging in medical withdrawal management at [facility]. 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 Difficulty walking, uses cane. Patient reports that he self medicates with alcohol. Dimension3 Emotional, Behavioral or Cognitive Conditions and Complications Severity Ratin-severe Patient reports prior diagnosis of Bipolar and PTSD. Reports historical and current symptoms including: depression, loss of pleasure, barriers to sleep, hopelessness, memory barriers and vivid dreams related to past trauma. Currently engaged in behavioral health services. Willing to continue with services. Appears alert/oriented x4. Reports using alcohol when feeling isolated/bored. Dimension4 Readiness to Change Severity Ratin-severe Patient rejected Residential recommendation noting that he has to work and take care of his parents. Patient effectively identified that his AoD use has negatively affected the following areas of his life: work, relationships, hygiene, legal matters, recreational activities, physical health, ADLs and finances. He reports continued use despite knowledge of negative consequences. He reports that he is motivated for treatment but was resistant to recommendations. Willing to engage in MAT/Individual sessions/Potentially groups. Dimension5 Relapse, Continued Use or Continued Problem Potential Severity Ratin-very severe Patient is at a high risk of relapse based on history and resistance to recommended treatment. He reports that he will likely relapse if he does not engage in some kind of treatment. He reports that he experiences cravings to use, has difficulty dealing with uncomfortable feelings, has chronic pain- all of which are triggering. He will likely continue to use without immediate engagement in ongoing treatment for MH and AoD. Dimension6 Recovery/ Living Environment Severity Ratin-severe Patient reports that his father is his primary support, no other (sober) support persons identified. Patient lives alone and has a history of active use in his home. Reports recent lay-off from employment, feeling isolated in his home due to COVID19. Reports that these are all harmful to his sobriety. Reports that he has one close friend who he actively uses with. He is not enrolled in school, does not have employment. Patient refused Residential treatment, wants to move to [place] in income based housing.
[2019-08-24 15:00] VITALS: BP 159/110; PULSE 88; RESP 16; TEMP 36.8; O2SAT 97
[2019-08-24 19:44] VITALS: BP 150/102; PULSE 81; RESP 16; TEMP 37.1; O2SAT 98
[2019-08-24] MEDS: 0.9% Saline Lock 10 ML Syringe IV (19:51)
[2019-08-24] MEDS: Acetaminophen 325 MG Tablet 650 MG PO (19:51)
[2019-08-24] MEDS: Atorvastatin Calcium 80 MG Tablet PO (23:34)
[2019-08-24 23:39] VITALS: BP 139/107; PULSE 94; RESP 16; TEMP 36.8; O2SAT 98
[2019-08-25] VITALS (7 sets, daily range): BP systolic 129–154; BP diastolic 89–99; PULSE 74–99; RESP 14–18; TEMP 36.6–37.2; O2SAT 95–99
[2019-08-25] MEDS: Acetaminophen 325 MG Tablet 650 MG PO ×2 (03:55→11:51)
[2019-08-25] MEDS: Phenobarbital 32.4 MG Tablet 64.8 MG PO ×5 (03:55→19:32)
[2019-08-25] MEDS: Lisinopril 20 MG Tablet PO (08:26)
[2019-08-25] MEDS: Folic Acid 1 MG Tablet PO (08:26)
[2019-08-25] MEDS: Thiamine Hydrochloride 100 MG Tablet PO (08:26)
[2019-08-25] MEDS: Metoprolol Tartrate 100 MG Tablet PO (08:27)
[2019-08-25] MEDS: Aspirin 81 MG TAB.CHEW PO (08:29)
[2019-08-25] MEDS: Clopidogrel Bisulfate 75 MG Tablet PO (08:29)
--- NOTE | 2019-08-25 11:00 | ADDICTION ---
This policy writer sales met with patient and patient's primary alcohol and drug counselor (Luz). Patient reported willingness to engage in Residential treatment starting next week. He reported thatI need to go home and clean up and get my stuff. He reported that he is not willing to engage in treatment immediately following discharge from hospital. This policy writer sales informed patient that he has an appointment for Naltrexone (Luz) scheduled and that this policy writer sales is attempting to move his appointment up. This policy writer sales spoke with [facility] medical team- they are working to get him in for Naltrexone as soon as possible. This policy writer sales and counselor encouraged patient to engage in residential directly after discharge from [facility]- patient declined 3x. Luz to follow up with patient on Wednesday (08/28/2019).
--- NOTE | 2019-08-25 15:23 | PN_ITS ---
Reason for Visit: alcohol withdrawal Subjective: pt planning to pursue vivitrol as o/p. He c/o fogginess, not thinking clearly. No nausea/vomiting/abd pain. no hallucinations. Mild tremor. Vitals/I&O's: Vital Signs Temp Pulse Resp BP Pulse Ox 97.8 F 84 16 132/90 H 97 08/25/19 11:44 08/25/19 11:44 08/25/19 11:44 08/25/19 11:44 08/25/19 11:44 Oxygen Delivery Method Room Air Weight: 188 lb 11.451 oz Body Mass Index (BMI) 27.1 Intake and Output for Last 24 Hours 08/23/19 08/24/19 08/25/19 23:59 23:59 23:59 Intake Total 300 / 300 400 / 1400 1800 / 1800 Output Total 425 / 425 425 / 825 1000 / 1000 Balance -125 / -125 -25 / 575 800 / 800 General: Alert, Oriented x3, Cooperative HEENT: Atraumatic, PERRLA, EOMI, Normocephalic Neck: Supple, No JVD, Negative Carotid Bruits Lungs: Clear to auscultation, Normal air movement Cardiovascular: Regular rate, No murmurs Abdomen: Bowel Sounds Present, Soft, Non Tender Extremities: No edema, Capillary Refill Less than 3 Seconds Skin: No rashes, No breakdown Musculoskeletal: No Tenderness to Palpation of Joints or Extremities Neurological: Cranial nerves II-XII grossly intact, - - mild tremor BL UE. Psych/Mental Status: Normal Affect, Appropriate, Alert and oriented to time, place, person, mood and affect Current Medications Acetaminophen (Tylenol) 650 mg PO Q6H PRN PRN PRN Reason: Pain or Fever Last Admin: 08/25/19 11:51 Dose: 650 mg Documented by: Aspirin (Aspirin, Baby) 81 mg PO DAILY@0800 [facility] Last Admin: 08/25/19 08:29 Dose: 81 mg Documented by: Atorvastatin Calcium (Lipitor) 80 mg PO DAILY@2200 [facility] Last Admin: 08/24/19 23:34 Dose: 80 mg Documented by: Clopidogrel Bisulfate (Plavix) 75 mg PO DAILY [facility] Last Admin: 08/25/19 08:29 Dose: 75 mg Documented by: Dicyclomine HCl (Bentyl) 20 mg PO Q6H PRN PRN PRN Reason: abdominal discomfort Folic Acid (Folic Acid) 1 mg PO DAILY@0800 [facility] Last Admin: 08/25/19 08:26 Dose: 1 mg Documented by: Gabapentin (Neurontin) 300 mg PO Q8H PRN PRN PRN Reason: moderate to severe anxiety Last Admin: 08/24/19 05:55 Dose: 300 mg Documented by: Hydroxyzine Pamoate (Vistaril Pamoate Capsule) 50 mg PO Q4H PRN PRN PRN Reason: mild anxiety Last Admin: 08/24/19 23:34 Dose: 50 mg Documented by: Sodium Chloride () 250 mls @ 15 mls/hr IV .[id number] PRN PRN Reason: Saline Flush Sodium Chloride () 250 mls @ 15 mls/hr IV .[id number] PRN PRN Reason: Additional IVPB Infusion Lisinopril (Zestril) 20 mg PO DAILY [facility] Last Admin: 08/25/19 08:26 Dose: 20 mg Documented by: Loperamide HCl (Imodium) 2 mg PO Q4H PRN PRN PRN Reason: LOOSE STOOLS Metoprolol Tartrate (Lopressor (Beta Ramakrishna)) 100 mg PO DAILY [facility] Last Admin: 08/25/19 08:27 Dose: 100 mg Documented by: Nicotine (Nicoderm Cq (Pbkc)) 14 mg TRANSDERM. DAILY [facility] Last Admin: 08/25/19 08:27 Dose: 14 mg Documented by: Ondansetron HCl (Zofran) 8 mg PO Q8H PRN PRN PRN Reason: NAUSEA Last Admin: 08/24/19 23:34 Dose: 8 mg Documented by: Phenobarbital (Phenobarbital) 64.8 mg PO Q4H [facility]; Taper Stop: 08/28/19 04:29 Last Admin: 08/25/19 11:51 Dose: 64.8 mg Documented by: Promethazine HCl (Phenergan Tablet) 12.5 mg PO Q6H PRN PRN PRN Reason: NAUSEA/VOMITING Sodium Chloride () 10 - 40 ml IV UD PRN PRN Reason: SALINE FLUSH Last Admin: 08/24/19 19:51 Dose: 10 ml Documented by: [facility]) [facility] Last Admin: 08/25/19 08:26 Dose: 100 mg Documented by: Trazodone HCl (Desyrel) 100 mg PO QHS PRN PRN Reason: INSOMNIA STROKE Vital Signs/Narrative: Vital Signs Temp Pulse Resp BP Pulse Ox 08/25/19 11:44 97.8 F 84 16 132/90 H 97 Medical Necessity - Tobacco Use Smoking Status: Current every day smoker Tobacco Use: Cigarettes Assessment/Plan All Active Problems (Last Updated 03/23/18 @ 20:[address] Satnam Chappell MD) Chest pain (Resolved) Acute kidney injury (Resolved) 1. Alcohol withdrawal - continue phenobarb taper. no hx wd seizure. drinks 1/2 gallon liquor daily. Vivitrol at discharge. 2. Tobacco abuse - nicotine abuse 3. CAD - atorvastatin, lisinopril, metoprolol 4. HTN - somewhat elevated, continue home meds. 5. HLD - statin DVT ppx: early ambulation DC plannin, vivitrol, tomorrow home. This patient was seen by Yonas Guerra PA-C under the supervision of Doctor Bautista.
[2019-08-25] MEDS: Mag Hydrox/Al Hydrox/Simeth 30 ML UDC PO (19:32)
[2019-08-26] MEDS: Dicyclomine 10 MG Capsule 20 MG PO (00:34)
[2019-08-26] MEDS: Pantoprazole Sodium 20 MG Tablet PO ×2 (00:34→09:49)
[2019-08-26] MEDS: traZODone 100 MG Tablet PO (00:34)
[2019-08-26] MEDS: Atorvastatin Calcium 80 MG Tablet PO (00:35)
[2019-08-26] MEDS: Phenobarbital 32.4 MG Tablet 64.8 MG PO ×2 (00:35→04:35)
[2019-08-26] MEDS: Acetaminophen 325 MG Tablet 650 MG PO (00:46)
[2019-08-26 03:50] VITALS: BP 152/90; PULSE 72; RESP 16; TEMP 36.8; O2SAT 96
--- NOTE | 2019-08-26 09:18 | PCM.DC ---
You will use the following diet at home:: No restrictions Your food should be the consistency of: Regular Your liquids should be the consistency of: Regular/Thin Discharge Activity: Return to Normal Activity Allergies/Adverse Reactions: Allergies Penicillins [PCN] Adverse Reaction (Verified 01/03/19 08:23) Unknown Medications to take at Discharge Clopidogrel Bisulfate [Clopidogrel] 75 mg PO DAILY 07/12/18 Metoprolol Tartrate [Lopressor (beta alexandria)] 100 mg PO DAILY 07/12/18 Rosuvastatin Calcium 40 mg PO DAILY 07/12/18 Lisinopril 20 mg PO DAILY 12/16/18 Aspirin 81 mg PO DAILY 08/24/19 Aspirin [Aspirin, Baby] 81 mg PO DAILY@0800 tab.chew 08/26/19 Clopidogrel Bisulfate [Plavix] 75 mg PO DAILY tablet 08/26/19 Phenobarbital 30 mg PO BID #10 tablet 08/26/19 hydrOXYzine pamoate capsule [Vistaril pamoate capsule] 50 mg PO Q4H PRN PRN #30 cap 08/26/19 The following prescriptions were given: Phenobarbital 30 mg PO BID #10 tablet Transmission Status: Received by [address] hydrOXYzine pamoate capsule [Vistaril pamoate capsule] 50 mg PO Q4H PRN PRN #30 cap PRN Reason: mild anxiety Transmission Status: Pending to [address] Primary Care Physician: Care Physician,No Primary [Primary Care Provider] - Test Results: Test results from this visit will be discussed in further detail at your follow-up appointment, if applicable. Please Follow Up With: 180 When: as instructed
[2019-08-26 09:40] VITALS: BP 140/104; PULSE 114; RESP 18; TEMP 36.7; O2SAT 98
[2019-08-26] MEDS: Aspirin 81 MG TAB.CHEW PO (09:48)
[2019-08-26] MEDS: Lisinopril 20 MG Tablet PO (09:48)
[2019-08-26] MEDS: Thiamine Hydrochloride 100 MG Tablet PO (09:49)
[2019-08-26] MEDS: Clopidogrel Bisulfate 75 MG Tablet PO (09:49)
[2019-08-26] MEDS: Folic Acid 1 MG Tablet PO (09:49)
[2019-08-26 09:50] VITALS: PULSE 114
[2019-08-26] MEDS: Metoprolol Tartrate 100 MG Tablet PO (09:50)
--- NOTE | 2019-08-26 14:26 | PCM.DC.SUM ---
Discharge Date and Diagnosis Date of Admission: 08/23/19 Date of Discharge: 08/26/19 - Primary Discharge Diagnosis Alcoholism with acute withdrawal Tobacco abuse History of CAD, hypertension, hyperlipidemia History of familial spastic paraplegia - Secondary Discharge Diagnosis Chronic Problems (Last Updated 03/23/18 @ 20:[address] Satnam Chappell MD) Hereditary spastic paraplegia (Chronic) History of coronary artery disease (Chronic) Gastroenteritis (Chronic) Hospital Course and Treatment Operations: None Procedures: None Summary of Care Provided: Hospital Course: The patient is a 34 year old M with past medical history of CAD, familial spastic paraplegia, hypertension, hyperlipidemia, nicotine abuse, alcoholism who presented to the emergency room with request for detox from alcohol. He had presented to [facility] who contacted the [facility] program who recommended inpatient detox at [facility]. The patient had been drinking approximately 1 gallon of liquor daily, his last drink prior to admission was the day prior, and his blood alcohol level was 236 at the time of presentation. He was admitted and initiated on a phenobarbital taper. The patient tolerated the phenobarbital taper well and completed the detox program here. He plans to follow-up with the [facility] program at discharge. He was given a short course of phenobarbital and Vistaril at discharge. He will need to follow-up with 180 as soon as possible, follow-up with PCP in 1 to 2 weeks. This patient was seen by Yonas Guerra PA-C under the supervision of Doctor Lily. [] - Physical Exam Vitals/I&O's: Vital Signs Temp Pulse Resp BP Pulse Ox 98.0 F 114 H 18 140/104 H 98 08/26/19 09:40 08/26/19 09:50 08/26/19 09:40 08/26/19 09:40 08/26/19 09:40 Oxygen Delivery Method Room Air Weight: 188 lb 11.451 oz Body Mass Index (BMI) 27.1 Intake and Output for Last 24 Hours 08/24/19 08/25/19 08/26/19 23:59 23:59 23:59 Intake Total 400 / 1400 2150 / 2150 300 / 300 Output Total 425 / 825 1000 / 1000 Balance -25 / 575 1150 / 1150 300 / 300 General: Alert, Oriented x3, Cooperative HEENT: Atraumatic, PERRLA, EOMI, Normocephalic Neck: Supple, No JVD, Negative Carotid Bruits Lungs: Clear to auscultation, Normal air movement Cardiovascular: Regular rate, No murmurs Abdomen: Bowel Sounds Present, Soft, Non Tender Extremities: No edema, Capillary Refill Less than 3 Seconds Skin: No rashes, No breakdown Musculoskeletal: No Tenderness to Palpation of Joints or Extremities Neurological: Cranial nerves II-XII grossly intact Psych/Mental Status: Normal Affect, Appropriate, Alert and oriented to time, place, person, mood and affect Discharge Diet: No Restrictions, - - no alcohol at all Discharge Activity: Return to Normal Activity Home Medications: Medications to take at Discharge Clopidogrel Bisulfate [Clopidogrel] 75 mg PO DAILY 07/12/18 Metoprolol Tartrate [Lopressor (beta alexandria)] 100 mg PO DAILY 07/12/18 Rosuvastatin Calcium 40 mg PO DAILY 07/12/18 Lisinopril 20 mg PO DAILY 12/16/18 Aspirin 81 mg PO DAILY 08/24/19 Aspirin [Aspirin, Baby] 81 mg PO DAILY@0800 tab.chew 08/26/19 Clopidogrel Bisulfate [Plavix] 75 mg PO DAILY tab 08/26/19 Phenobarbital 30 mg PO BID #10 tab 08/26/19 hydrOXYzine pamoate capsule [Vistaril pamoate capsule] 50 mg PO Q4H PRN PRN #30 cap 08/26/19 Following Prescrptions Were Given to Patient: Phenobarbital 30 mg PO BID #10 tab Transmission Status: Received by [address] hydrOXYzine pamoate capsule [Vistaril pamoate capsule] 50 mg PO Q4H PRN PRN #30 cap PRN Reason: mild anxiety Transmission Status: Received by [address] Primary Care Physician: Care Physician,No Primary [Primary Care Provider] - Please Follow Up With: 180 When: as instructed Disposition: Home Minutes spent on discharge:: 35 Patient Condition:: Stable Medical Necessity - Tobacco Use Smoking Status: Current every day smoker Tobacco Use: Cigarettes Meaningful Use Info Meaningful Use Diagnoses (Choose all that apply): None applicable
== END 2019-08-26 09:53 | disposition home or self-care (01) | DRG 775 ==
PROVIDERS: Admitting Provider Family Medicine; Visit Provider Internal Medicine
DX: F10.239 Alcohol dependence with withdrawal, unspecified (principal); I25.10 Atherosclerotic heart disease of native coronary artery without angina pectoris; I10 Essential (primary) hypertension; E78.5 Hyperlipidemia, unspecified; G11.4 Hereditary spastic paraplegia; Z79.899 Other long term (current) drug therapy; F17.210 Nicotine dependence, cigarettes, uncomplicated; Z95.5 Presence of coronary angioplasty implant and graft
CPT/HCPCS: 99406; A4216

== ENCOUNTER 2020-03-19 16:45 | Inpatient (IN) | payer MEDICAID, SELFPAY ==
[2020-03-19 16:46] VITALS: BP 149/101; PULSE 125; RESP 18; TEMP 36.1; O2SAT 99; BMI 27.2
--- NOTE | 2020-03-19 16:58 | EKG12_ITS ---
Test Reason : Blood Pressure : / mmHG Vent. Rate : 117 BPM Atrial Rate : 117 BPM P-R Int : 146 ms QRS Dur : 098 ms QT Int : 328 ms P-R-T Axes : 039 073 056 degrees QTc Int : 457 ms Sinus tachycardia Otherwise normal ECG Confirmed by BRENNA MILLS, EMILI ([id number]), scientific publications editor JAMES CONNELLY ([id number]) on 03/25/2020 12:58:55 PM Referred By: Ishan Couch Confirmed By:CHENTE CEJA MD
--- NOTE | 2020-03-19 16:59 | ED.DCSUM_ITS ---
History of Present Illness Chief Complaint: Substance Abuse Informant: Patient Narrative: 35-year-old male with past medical history of alcohol abuse presents for detox. States that he was sober for 4 months but over the past 4 days he has had binge drinking episode. States he has not had any alcohol over the past 12 hours. States he is beginning to get nauseous and feel unwell. States he is having dysuria as well. Denies any penile discharge. Patient states he has not had sexual intercourse in 2 years. States that he is a current smoker. States he has had alcohol withdrawal before in the past without seizures. Past Medical History - Allergies and Home Meds Allergies/Adverse Reactions: Allergies Penicillins [PCN] Adverse Reaction (Verified 03/19/20 16:48) Unknown Prior records reviewed: Yes Past Medical History: - - alcohol abuse Surgical History: appendectomy, - - Plate in left ankle. left hand. Lives: Alone Smoking Status: Current every day smoker Alcohol: Heavy Drugs: None Review of Systems General: Denies: Chills, Fever, Sweats Eyes: Denies: Visual changes - bilaterally, Diplopia ENT: Denies: Rhinorrhea, Sore throat Cardiovascular: Denies: Chest pain, Palpitations Respiratory: Denies: Dyspnea, Cough, Dyspnea on exertion Gastrointestinal: Reports: Nausea, Vomiting. Denies: Abdominal pain, Diarrhea, Melena, Hematochezia Genitourinary: Reports: Dysuria. Denies: Hematuria, Frequency Musculoskeletal: Denies: Back pain, Extremity Pain Skin: Denies: Rash, Wounds Neurological: Denies: Headache, Weakness, Numbness Physical Exam Vital Signs/Narrative: Vital Signs Temp Pulse Resp BP Pulse Ox 03/19/20 16:46 97 F L 125 H 18 149/101 H 99 Inital Vital Signs reviewed: Yes General: Well nourished, Well developed, No Acute Distress Head: Normocephalic, Atraumatic Eyes: Perrl, EOMI ENT: Moist mucous membranes, No rhinorrhea Neck: Supple, Nontender Cardiovascular: Regular rhythm, No murmurs, Tachycardia Respiratory: No distress, CTA bilaterally, Chest nontender Abdomen: Soft, Nontender, Nondistended, Normal bowel sounds Back: Nontender, Normal Inspection Extremities: Nontender, No edema Skin: Normal color, No rash Neurological: Alert, Oriented x3, Cranial nerves II-XII grossly intact, Normal Strength, Normal Sensation Psychological: Normal affect, Normal Mood Diagnostic/Tx/Re-eval - Rhythm Strip Rhythm Strip: Sinus Tach Rate: 117 Ectopy: None - EKG Initial EKG Interpretation: Sinus Tachycardia - Is tachycardia 117 bpm. UT interval 146 ms. QTC of [address] ms[address] No evidence of ST elevation or depression at this time. - Medical Decision Making Appears well nontoxic. Tachycardic and hypertensive upon arrival. Given 1 L of normal saline as well as 1 mg of IV Ativan. Patient also given thiamine, folate, multivitamin. Patient will be admitted to the hospital for alcohol withdrawal and detoxification. Stable at time of admission. Impression: 1. Alcohol withdrawal 2. Volume depletion ED Disposition - Plan for ED Patient: Disposition: Acute Care Hospital [facility]
[2020-03-19] MEDS: Ondansetron 4 MG/2 ML Vial IV (17:20)
[2020-03-19] MEDS: LORazepam 2 MG/ML Syringe 1 MG IV (17:23)
[2020-03-19 17:33] LABS: Mucous, Urine 0 SEEN /hpf (<or=2+); Red Blood Cells-Urine 0 SEEN /hpf (0-5); Squamous Epithelial Cells - UA 0 SEEN /hpf (0-5); White Blood Cells 0 SEEN /hpf (0-5)
[2020-03-19 17:37] LABS: Color, Urine Yellow (Yellow); Glucose, Dipstick Normal (Normal); Ketone-Dipstick 5 mg/dl (Negative); Leukocyte Esterase-Dipstick Negative /ul (Negative); Nitrite-Dipstick Negative (Negative); Occult Blood-Urine 10 /ul (Negative); Protein-Dipstick 500 mg/dl (Negative); Urine Bilirubin Dipstick Negative (Negative); Urine Clarity Clear (Clear); Urine Urobilinogen Normal (Normal)
[2020-03-19] MEDS: 0.9% Normal Saline 1,000 ML 999 ML IV (17:42)
[2020-03-19] MEDS: Multivitamins,Therapeutic Tablet 1 TABLET PO (17:42)
[2020-03-19 17:44] LABS: Bacteria 1+ /hpf (None Seen)
[2020-03-19 17:46] VITALS: BP 151/114; PULSE 116; RESP 18; TEMP 36.9; O2SAT 98
[2020-03-19 17:52] LABS: Absolute Neutrophil Count 5.4 X10^3/uL (2.0-7.7); Basophil# 0.06 X10^3/uL; Basophil% 0.7 % (0-1); Eosinophil# 0.02 X10^3/uL; Eosinophils% 0.2 % (0-5); Hematocrit 53.9 % (40-54); Lymphocyte % 33.4 % (19-41); Mean Corp Hgb Conc 33.4 g/dL (32-36); Mean Corpuscular Hgb 27.4 pg (27.0-32.0); Mean Corpuscular Volume 81.9 fL (80-94); Mean Platelet Vol. 9.7 fl (6.2-12.0); Monocyte# 0.42 X10^3/uL; Monocyte% 4.7 % (0-10); NRBC Flagged by Analyzer 0 % (0-5); Neutrophil # 5.43 X10^3/uL (2.7-7.7); Neutrophil % 60.6 % (47-70); Platelet Count 358 K/mm3 (150-450); RBC Distribution Width CV 12.9 % (11.6-14.6); RBC Distribution Width SD 38.3 fl (35.1-43.9); Red Blood Count 6.58 M/mm3 (4.6-6.2)
[2020-03-19 17:53] LABS: ALB/GLOB Ratio 0.8 RATIO (0.9-2.4); AST(SGOT) 19 U/L (15-37); Alanine Aminotransfer ALT/SGPT 29 U/L (16-61); Alkaline Phosphatase 122 U/L (45-117); Anion Gap 10 (5-15); BUN 17 mg/dL (7-18); BUN/Creat Ratio 21.1 RATIO (10-20); Calcium,Total 9.1 mg/dL (8.5-10.1); Chloride 105 mmol/L (98-107); Creatinine, Serum 0.81 mg/dL (0.70-1.30); EST Glomerular Filtration Rate 116 mL/min (>60); Est Glom Filt Rate - Afr Amer 140 mL/min (>60); Estimated Creatinine Clearance 131.43 ml/min; Globulin 4.9 g/dL (2.2-4.2); Glucose 103 mg/dL (74-106); Protein, Total 8.9 g/dL (6.4-8.2); Sodium Level 141 mmol/L (136-145)
[2020-03-19 17:58] LABS: Amphetamine Urine VISTA NEGATIVE (<1000 ng/mL); Barbiturate Urine VISTA NEGATIVE (< 200 ng/mL); Benzodiazepine Urine VISTA NEGATIVE (< 200 ng/mL); Cocaine Urine VISTA NEGATIVE (< 300 ng/mL); Ecstacy Urine VISTA NEGATIVE (< 500 ng/mL); Methadone Urine VISTA NEGATIVE (< 300 ng/mL); PCP Urine VISTA NEGATIVE (< 25 ng/mL); THC Urine VISTA NEGATIVE (< 50 ng/mL); Vista UDS pH Range 5
[2020-03-19 18:38] VITALS: BP 136/105; PULSE 112; RESP 18; TEMP 36.6; O2SAT 98
[2020-03-19 19:17] VITALS: BMI 26.5
[2020-03-19 19:19] VITALS: BP 142/90; PULSE 125; RESP 20; TEMP 36.7; O2SAT 98
[2020-03-19 19:35] VITALS: BMI 26.5
--- NOTE | 2020-03-19 19:54 | PCM.HP.STD ---
Problem List (1) Alcohol withdrawal Status: Acute (2) Alcohol withdrawal seizure Status: Acute (3) Hereditary spastic paraplegia Status: Chronic (4) Chest pain Status: Resolved Qualifiers: Chest pain type: unspecified Qualified Code(s): R07.9 - Chest pain, unspecified (5) History of coronary artery disease Status: Chronic (6) Gastroenteritis Status: Chronic (7) Acute kidney injury Status: Resolved History of Present Illness Date of Admission: 03/19/20 Chief Complaint: alcohol withdrawal The patient is a 35 year old M who had been sober for 4 months but then over the past 4 days he has been drinking gallons of bourbon. His last drink was sometime this morning he stated that was when it was day late. Since then he has been tremulous, nauseated and having a headache. He notes that he has had a history of alcohol withdrawal seizures and thinks he may have had one today. He denies any other seizures outside of alcohol withdrawal. Patient had been established with 1 ED and is interested in being reestablished with them again. [] Past Medical History Past Medical History (Chronic Problems): Chronic Problems (Last Reviewed 03/19/20 @ 19:[address] Ishan Couch DO) Hereditary spastic paraplegia (Chronic) History of coronary artery disease (Chronic) Gastroenteritis (Chronic) Medical History: Medical History (Last Reviewed 03/19/20 @ 19:[address] Ishan Couch DO) CAD (coronary artery disease) I25.10 Hypertension I10 Allergies Penicillins [PCN] Adverse Reaction (Verified 03/19/20 16:48) Unknown Home Medications: Ambulatory Orders Medication Instructions Recorded Lisinopril 20 mg PO DAILY 12/16/18 Aspirin 81 mg PO DAILY 08/24/19 Atorvastatin Calcium [Lipitor] 40 mg PO QHS 03/19/20 Baclofen 20 mg PO BID 03/19/20 Gabapentin 300 mg PO TID 03/19/20 Surgical History: appendectomy, - - Plate in left ankle. left hand. Psychiatric History: Bipolar Lives: Alone Smoking Status: Current every day smoker Tobacco Use: Cigarettes Alcohol: Heavy Drugs: None - *Family History Paternal Family History: Family History (Last Reviewed 03/19/20 @ 19:[address] Ishan Couch DO) Mother Emphysema of lung Father Hereditary spastic paraplegia Review of Systems Constitutional: Denies: Anorexia, Chills, Fever, Malaise, Weakness Eyes: Denies: Blurred vision, Double vision HEENT: Denies: Head Aches, Sinus Congestion, Sinus Drainage Cardiovascular: Denies: Chest Pain, Palpitations Respiratory: Denies: Cough, Shortness of breath at rest, Sputum production Gastrointestinal: Reports: Nausea. Denies: Abdominal Pain Genitourinary: Denies: Dysuria Musculoskeletal: Denies: Joint Pain, Joint Tenderness Skin: Denies: Dryness, Lesions Neurological: Reports: Balance problems. Denies: Focal weakness, Numbness, Tingling Comment: All review of systems were negative except as mentioned above in the history of present illness and the other review of systems. VTE Information - Inpt Only VTE Present on Admission: No VTE Mechan Device Prophylaxis: None VTE Pharm Prophylaxis ordered?: No Reason prophylaxis not ordered:: Treatment Not Indicated Patient Problems: Active and Suspected Problems (Last Reviewed 03/19/20 @ 19:[address] Ishan Couch, DO) Alcohol withdrawal (Acute) Alcohol withdrawal seizure (Acute) - Physical Exam Vitals/I&O's: Vital Signs Temp Pulse Resp BP Pulse Ox 36.7 C 125 H 20 H 142/90 H 98 03/19/20 19:19 03/19/20 19:19 03/19/20 19:19 03/19/20 19:19 03/19/20 19:19 Oxygen Delivery Method Room Air Weight: 83.915 kg Body Mass Index (BMI) 26.5 Intake and Output for Last 24 Hours 03/17/20 03/18/20 03/19/20 23:59 23:59 23:59 Intake Total 1101.2 / 1101.2 Balance 1101.2 / 1101.2 General: Alert, Cooperative, No apparent distress HEENT: Atraumatic, Normocephalic Oral: Moist Mucosa, No Gingival or Mucosal Lesions/ Ulcerations Neck: No Nodes, Thyroid Normal Size and Texture Lungs: Clear to auscultation, Normal air movement, No rhonchi, No wheeze Cardiovascular: Regular rate, Regular Rhythm, Normal S1, Normal S2, No murmurs Abdomen: Bowel Sounds Present, Soft, Non Tender, Non-Distended, No Hepato-splenomegaly Extremities: No edema, No Calf Tenderness Psych/Mental Status: Normal Affect, Appropriate Laboratory Results 03/19/20 17:15: Urine Opiates Screen NEGATIVE, Urine Methadone Screen NEGATIVE, Ur Barbiturates Screen NEGATIVE, Ur Phencyclidine Scrn NEGATIVE, Ur Amphetamines Screen NEGATIVE, U Methamphetamin-MDMA NEGATIVE, U Benzodiazepines Scrn NEGATIVE, Urine Cocaine Screen NEGATIVE, U Cannabinoids Screen NEGATIVE, Ur Drug Screen Comment 03/19/20 17:15: Urine Color Yellow, Urine Clarity Clear, Urine pH 5.0, Ur Specific [place] 1.030, Urine Protein 500 H, Urine Glucose (UA) Normal, Urine Ketones 5 H, Urine Occult Blood 10 H, Urine Nitrite Negative, Urine Bilirubin Negative, Urine Urobilinogen Normal, Ur Leukocyte Esterase Negative, Urine RBC 0 SEEN, Urine WBC 0 SEEN, Ur Squamous Epith Cells 0 SEEN, Urine Bacteria 1+, Urine Mucus 0 SEEN 03/19/20 17:25: WBC 9.0, RBC 6.58 H, Hgb 18.0 H*, Hct 53.9, MCV 81.9, MCH 27.4, MCHC 33.4, RDW Std Deviation 38.3, RDW Coeff of Srinivasa 12.9, Plt Count 358, MPV 9.7, Immature Gran % (Auto) 0.400, Neut % (Auto) 60.6, Lymph % (Auto) 33.4, [place] % (Auto) 4.7, Eos % (Auto) 0.2, Baso % (Auto) 0.7, Absolute Neuts (auto) 5.4, Absolute Lymphs (auto) 3.00, Nucleated RBC % 0 03/19/20 17:25: Sodium 141, Potassium 4.0, Chloride 105, Carbon Dioxide 26.0, Anion Gap 10, BUN 17, Creatinine 0.81, Estim Creat Clear Calc 131.43, Est GFR (MDRD) Af Amer 140, Est GFR (MDRD) Non-Af 116, BUN/Creatinine Ratio 21.1 H, Glucose 103, Calcium 9.1, Total Bilirubin 0.20, AST 19, ALT 29, Alkaline Phosphatase 122 H, Total Protein 8.9 H, Albumin 4.0, Globulin 4.9 H, Albumin/Globulin Ratio 0.8 L 03/19/20 17:40: Ethyl Alcohol 328.0 H* Current Medications Sodium Chloride () 250 mls @ 15 mls/hr IV .[id number] PRN PRN Reason: Saline Flush Sodium Chloride () 250 mls @ 15 mls/hr IV .[id number] PRN PRN Reason: Additional IVPB Infusion Sodium Chloride (0.9% Saline Lock 10 Ml Syringe) 10 - 40 ml IV UD PRN PRN Reason: SALINE FLUSH Assessment/Plan All Active Problems (Last Reviewed 03/19/20 @ 19:[address] Ishan Couch, DO) Alcohol withdrawal (Acute) Alcohol withdrawal seizure (Acute) Chest pain (Resolved) Acute kidney injury (Resolved) 1. Suspect acute alcohol withdrawal: We will give the patient the benefit of doubt though if patient states that he is only been drinking for the past 4 days though large quantities, I do not necessary feel that he be going through acute alcohol withdrawal. However, patient may been minimizing the amount of time that he has been drinking possibly could have been longer so I think it is most prudent to treat him. The plan for treatment is phenobarbital taper with additional agents to help with other somatic complaints associated with his withdrawal. Thiamine and folate as well as the initiated. Consult case management to facilitate further addiction treatment post discharge. 2. Alcohol withdrawal seizures. Patient is unsure if he had a seizure today. Patient be on seizure precautions and as needed lorazepam. 3. Tobacco abuse: Patient requesting nicotine patch. 21 mg patch will be ordered. 4. VTE prophylaxis: Not indicated as patient is low risk at this time. Inpatient E&M: 15979 Init Hosp L2
[2020-03-19] MEDS: Phenobarbital 32.4 MG Tablet 64.8 MG PO (20:05)
[2020-03-19] MEDS: Ondansetron 8 MG Tablet PO (20:05)
[2020-03-19] MEDS: Dicyclomine 10 MG Capsule 20 MG PO (21:14)
[2020-03-19] MEDS: Gabapentin 300 MG Capsule PO (21:16)
[2020-03-19] MEDS: Atorvastatin Calcium 40 MG Tablet PO (21:17)
[2020-03-19] MEDS: Baclofen 10 MG Tablet 20 MG PO (21:17)
[2020-03-19] MEDS: Ibuprofen 600 MG Tablet PO (23:14)
[2020-03-19 23:19] VITALS: BP 118/68; PULSE 107; RESP 16; TEMP 36.6; O2SAT 96
[2020-03-20] MEDS: Phenobarbital 32.4 MG Tablet 64.8 MG PO ×6 (00:18→20:33)
[2020-03-20 03:19] VITALS: BP 135/90; PULSE 97; RESP 16; TEMP 36.8; O2SAT 97
[2020-03-20] MEDS: Acetaminophen 500 MG Tablet PO ×3 (07:15→20:37)
[2020-03-20] MEDS: hydrOXYzine PAM 25 MG Capsule 50 MG PO (07:15)
[2020-03-20] MEDS: Folic Acid 1 MG Tablet PO (07:16)
[2020-03-20] MEDS: Aspirin 81 MG TAB.CHEW PO (07:16)
[2020-03-20] MEDS: Thiamine Hydrochloride 100 MG Tablet PO (07:16)
[2020-03-20] MEDS: Gabapentin 300 MG Capsule PO ×3 (07:17→16:37)
[2020-03-20 07:25] VITALS: BP 134/89; PULSE 60; RESP 18; TEMP 36.6; O2SAT 97
--- NOTE | 2020-03-20 07:31 | PCM.PN.HOSP ---
Patient Problems: Active and Suspected Problems (Last Reviewed 03/19/20 @ 19:[address] Ishan Couch, DO) Alcohol withdrawal (Acute) Alcohol withdrawal seizure (Acute) Reason for Visit: Follow-up on acute alcohol withdrawal Subjective: Patient was seen and examined. He complains of feeling weak. No other acute events overnight. Objective: Physical exam: General: Alert, Cooperative, No apparent distress HEENT: Atraumatic, Normocephalic Oral: Moist Mucosa, No Gingival or Mucosal Lesions/ Ulcerations Neck: No Nodes, Thyroid Normal Size and Texture Lungs: Clear to auscultation, Normal air movement, No rhonchi, No wheeze Cardiovascular: Regular rate, Regular Rhythm, Normal S1, Normal S2, No murmurs Abdomen: Bowel Sounds Present, Soft, Non Tender, Non-Distended, No Hepato-splenomegaly Extremities: No edema, deformity of the feet Psych/Mental Status: Normal Affect, Appropriate Vitals/I&O's: Vital Signs Temp Pulse Resp BP Pulse Ox 97.8 F 60 18 134/89 H 97 03/20/20 07:25 03/20/20 07:25 03/20/20 07:25 03/20/20 07:25 03/20/20 07:25 Oxygen Delivery Method Room Air Weight: 83.915 kg Body Mass Index (BMI) 26.5 Intake and Output for Last 24 Hours 03/18/20 03/19/20 03/20/20 23:59 23:59 23:59 Intake Total 2001.2 / 2000.2 400 / 400 Output Total 475 / 475 450 / 450 Balance 1526.2 / 1526.2 -50 / -50 Laboratory Results 03/19/20 17:15: Urine Opiates Screen NEGATIVE, Urine Methadone Screen NEGATIVE, Ur Barbiturates Screen NEGATIVE, Ur Phencyclidine Scrn NEGATIVE, Ur Amphetamines Screen NEGATIVE, U Methamphetamin-MDMA NEGATIVE, U Benzodiazepines Scrn NEGATIVE, Urine Cocaine Screen NEGATIVE, U Cannabinoids Screen NEGATIVE, Ur Drug Screen Comment 03/19/20 17:15: Urine Color Yellow, Urine Clarity Clear, Urine pH 5.0, Ur Specific [place] 1.030, Urine Protein 500 H, Urine Glucose (UA) Normal, Urine Ketones 5 H, Urine Occult Blood 10 H, Urine Nitrite Negative, Urine Bilirubin Negative, Urine Urobilinogen Normal, Ur Leukocyte Esterase Negative, Urine RBC 0 SEEN, Urine WBC 0 SEEN, Ur Squamous Epith Cells 0 SEEN, Urine Bacteria 1+, Urine Mucus 0 SEEN 03/19/20 17:25: WBC 9.0, RBC 6.58 H, Hgb 18.0 H*, Hct 53.9, MCV 81.9, MCH 27.4, MCHC 33.4, RDW Std Deviation 38.3, RDW Coeff of Srinivasa 12.9, Plt Count 358, MPV 9.7, Immature Gran % (Auto) 0.400, Neut % (Auto) 60.6, Lymph % (Auto) 33.4, [place] % (Auto) 4.7, Eos % (Auto) 0.2, Baso % (Auto) 0.7, Absolute Neuts (auto) 5.4, Absolute Lymphs (auto) 3.00, Nucleated RBC % 0 03/19/20 17:25: Sodium 141, Potassium 4.0, Chloride 105, Carbon Dioxide 26.0, Anion Gap 10, BUN 17, Creatinine 0.81, Estim Creat Clear Calc 131.43, Est GFR (MDRD) Af Amer 140, Est GFR (MDRD) Non-Af 116, BUN/Creatinine Ratio 21.1 H, Glucose 103, Calcium 9.1, Total Bilirubin 0.20, AST 19, ALT 29, Alkaline Phosphatase 122 H, Total Protein 8.9 H, Albumin 4.0, Globulin 4.9 H, Albumin/Globulin Ratio 0.8 L 03/19/20 17:40: Ethyl Alcohol 328.0 H* Current Medications Acetaminophen (Acetaminophen 500 Mg Tablet) 500 mg PO Q4H PRN PRN PRN Reason: Temp > 100.4 F Last Admin: 03/20/20 07:15 Dose: 500 mg Documented by: Al Hydroxide/Mg Hydroxide (Mag Hydrox/Al Hydrox/Simeth 30 Ml Udc) 30 ml PO Q6H PRN PRN PRN Reason: dyspesia Aspirin ([facility] 81 [facility].Chew) [facility] Last Admin: 03/20/20 07:16 Dose: 81 mg Documented by: Atorvastatin Calcium (Atorvastatin Calcium 40 Mg Tablet) 40 mg PO QHS [facility] Last Admin: 03/19/20 21:17 Dose: 40 mg Documented by: Baclofen (Baclofen 10 Mg Tablet) 20 mg PO BID [facility] Last Admin: 03/19/20 21:17 Dose: 20 mg Documented by: Bisacodyl (Bisacodyl 10 Mg Suppository) 10 mg RECTAL DAILY PRN PRN Reason: Constipation Dicyclomine HCl (Dicyclomine 10 Mg Capsule) 20 mg PO Q6H PRN PRN PRN Reason: abdominal discomfort Last Admin: 03/19/20 21:14 Dose: 20 mg Documented by: Folic Acid (Folic Acid 1 Mg Tablet) 1 mg PO DAILY@0800 [facility] Last Admin: 03/20/20 07:16 Dose: 1 mg Documented by: Gabapentin (Gabapentin 300 Mg Capsule) 300 mg PO TIDCM [facility] Last Admin: 03/20/20 07:17 Dose: 300 mg Documented by: Gabapentin (Gabapentin 300 Mg Capsule) 300 mg PO Q8H PRN PRN PRN Reason: moderate to severe anxiety Last Admin: 03/19/20 21:16 Dose: 300 mg Documented by: Hydroxyzine Pamoate (Hydroxyzine Jackie 25 Mg Capsule) 50 mg PO Q4H PRN PRN PRN Reason: mild anxiety Last Admin: 03/20/20 07:15 Dose: 50 mg Documented by: Ibuprofen (Ibuprofen 600 Mg Tablet) 600 mg PO Q8H PRN PRN PRN Reason: Pain Score 1-10 Last Admin: 03/19/20 23:14 Dose: 600 mg Documented by: Lisinopril (Lisinopril 20 Mg Tablet) 20 mg PO DAILY [facility] Loperamide HCl (Loperamide 2 Mg Capsule) 2 mg PO Q4H PRN PRN PRN Reason: LOOSE STOOLS Lorazepam (Lorazepam 2 Mg/Ml Syringe) 2 mg IV Q4H PRN PRN PRN Reason: SEIZURES Nicotine (Nicotine 21 Mg Patch) 21 mg TRANSDERM. DAILY [facility] Last Admin: 03/19/20 20:33 Dose: 21 mg Documented by: Ondansetron HCl (Ondansetron 8 Mg Tablet) 8 mg PO Q8H PRN PRN PRN Reason: NAUSEA Last Admin: 03/19/20 20:05 Dose: 8 mg Documented by: Phenobarbital (Phenobarbital 32.4 Mg Tablet) 97.2 mg PO Q4H [facility]; Taper Stop: 03/24/20 03:59 Last Admin: 03/20/20 07:15 Dose: 97.2 mg Documented by: Senna (Senna Tablet) 2 tablet PO QHS PRN PRN Reason: Constipation Thiamine HCl (Thiamine Hydrochloride 100 Mg Tablet) 100 mg PO DAILYCM [facility] Last Admin: 03/20/20 07:16 Dose: 100 mg Documented by: Trazodone HCl (Trazodone 100 Mg Tablet) 100 mg PO QHS PRN PRN Reason: INSOMNIA STROKE Vital Signs/Narrative: Vital Signs Temp Pulse Resp BP Pulse Ox 03/20/20 07:25 97.8 F 60 18 134/89 H 97 Medical Necessity - Tobacco Use Smoking Status: Current every day smoker Tobacco Use: Cigarettes Assessment/Plan All Active Problems (Last Reviewed 03/19/20 @ 19:[address] Ishan Couch, DO) Alcohol withdrawal (Acute) Alcohol withdrawal seizure (Acute) Chest pain (Resolved) Acute kidney injury (Resolved) 1. Acute alcohol withdrawal, CIWA score is 17 this morning Patient continues to require medication and monitoring for withdrawal based on regular assessment and remains appropriate for ASAM level 4.0 Continue on phenobarbital withdrawal protocol as well as thiamine, folic acid, multivitamin Social work consulted 2. Possible alcohol withdrawal seizure, patient is unsure, continue seizure precautions 3. Hypertension, controlled, continue on home lisinopril 4. Nicotine dependence, continue on replacement 5. 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 DVT prophylaxis with early ambulation Inpatient E&M: [id number] [facility] Hosp L2
--- NOTE | 2020-03-20 09:09 | CASEMGMT ---
Social Work Note Pt is RAMP pt. OTF received message from Sarath at [facility] stating she is covering for Casi today and to call her regarding referral. OTF placed a call to Sarath ([phone]) and updated her on pt's admission. Sarath states understanding. Cornelia Rhodes WIRE LATHER, BARKEEPER
[2020-03-20] MEDS: Lisinopril 20 MG Tablet PO (09:32)
[2020-03-20] MEDS: Baclofen 10 MG Tablet 20 MG PO ×2 (09:32→22:29)
[2020-03-20] MEDS: Dicyclomine 10 MG Capsule 20 MG PO (11:50)
[2020-03-20 11:54] VITALS: BP 132/81; PULSE 66; RESP 18; TEMP 36.7; O2SAT 95
[2020-03-20] MEDS: Ibuprofen 600 MG Tablet PO (16:35)
[2020-03-20] MEDS: Ondansetron 8 MG Tablet PO (16:36)
[2020-03-20 20:26] VITALS: BP 107/64; PULSE 76; RESP 18; TEMP 36.4; O2SAT 100
[2020-03-20] MEDS: Atorvastatin Calcium 40 MG Tablet PO (22:29)
[2020-03-21] MEDS: Phenobarbital 32.4 MG Tablet 64.8 MG PO ×6 (00:15→20:46)
[2020-03-21 02:27] VITALS: BP 120/74; PULSE 72; RESP 18; TEMP 36.4; O2SAT 98
[2020-03-21] MEDS: Ibuprofen 600 MG Tablet PO ×2 (02:32→12:28)
--- NOTE | 2020-03-21 05:13 | NURSING ---
Pt told this RN that he is worried about his work calling him and wondering where he is at. this RN told pt that I will pass the info along to dayshift for case management to get ahold of [employer], or contact pts work. (contact info in pts chart). pt agreeable and gave this RN permission to tell case management to talk to his boss, Luis Carlos, and pt stated it is ok to give him information.
[2020-03-21 07:22] VITALS: BP 125/77; PULSE 79; RESP 16; TEMP 36.6; O2SAT 97
--- NOTE | 2020-03-21 07:31 | PCM.PN.HOSP ---
Patient Problems: Active and Suspected Problems (Last Reviewed 03/19/20 @ 19:[address] Ishan Couch, DO) Alcohol withdrawal (Acute) Alcohol withdrawal seizure (Acute) Reason for Visit: Follow-up on acute alcohol withdrawal Subjective: Patient was seen and examined. No other acute events overnight. He feels much improved. Objective: Physical exam: General: Alert, Cooperative, No apparent distress HEENT: Atraumatic, Normocephalic Oral: Moist Mucosa, No Gingival or Mucosal Lesions/ Ulcerations Neck: No Nodes, Thyroid Normal Size and Texture Lungs: Clear to auscultation, Normal air movement, No rhonchi, No wheeze Cardiovascular: Regular rate, Regular Rhythm, Normal S1, Normal S2, No murmurs Abdomen: Bowel Sounds Present, Soft, Non Tender, Non-Distended, No Hepato-splenomegaly Extremities: No edema, deformity of the feet Psych/Mental Status: Normal Affect, Appropriate Vitals/I&O's: Vital Signs Temp Pulse Resp BP Pulse Ox 97.9 F 79 16 125/77 H 97 03/21/20 07:22 03/21/20 07:22 03/21/20 07:22 03/21/20 07:22 03/21/20 07:22 Oxygen Delivery Method Room Air Weight: 83.915 kg Body Mass Index (BMI) 26.5 Intake and Output for Last 24 Hours 03/19/20 03/20/20 03/21/20 23:59 23:59 23:59 Intake Total 2001.2 / 2001.2 2250 / 2250 300 / 300 Output Total 475 / 475 2250 / 2250 0 / 0 Balance 1526.2 / 1526.2 0 / 0 300 / 300 Current Medications Acetaminophen (Acetaminophen 500 Mg Tablet) 500 mg PO Q4H PRN PRN PRN Reason: Temp > 100.4 F Last Admin: 03/20/20 20:37 Dose: 500 mg Documented by: Al Hydroxide/Mg Hydroxide (Mag Hydrox/Al Hydrox/Simeth 30 Ml Udc) 30 ml PO Q6H PRN PRN PRN Reason: dyspesia Aspirin ([facility]in 81 Mg [facility].Chew) [facility] Last Admin: 03/20/20 07:16 Dose: 81 mg Documented by: Atorvastatin Calcium (Atorvastatin Calcium 40 Mg Tablet) 40 mg PO QHS [facility] Last Admin: 03/20/20 22:29 Dose: 40 mg Documented by: Baclofen (Baclofen 10 Mg Tablet) 20 mg PO BID [facility]CLUD[facility] Last Admin: 03/20/20 22:29 Dose: 20 mg Documented by: Bisacodyl (Bisacodyl 10 Mg Suppository) 10 mg RECTAL DAILY PRN PRN Reason: Constipation Dicyclomine HCl (Dicyclomine 10 Mg Capsule) 20 mg PO Q6H PRN PRN PRN Reason: abdominal discomfort Last Admin: 03/20/20 11:50 Dose: 20 mg Documented by: Folic Acid (Folic Acid 1 Mg Tablet) 1 mg PO DAILY@0800 [facility] Last Admin: 03/20/20 07:16 Dose: 1 mg Documented by: Gabapentin (Gabapentin 300 Mg Capsule) 300 mg PO TIDCM COUNT [facility]CLUDES [facility] Last Admin: 03/20/20 16:37 Dose: 300 mg Documented by: Gabapentin (Gabapentin 300 Mg Capsule) 300 mg PO Q8H PRN PRN PRN Reason: moderate to severe anxiety Last Admin: 03/19/20 21:16 Dose: 300 mg Documented by: Hydroxyzine Pamoate (Hydroxyzine Jackie 25 Mg Capsule) 50 mg PO Q4H PRN PRN PRN Reason: mild anxiety Last Admin: 03/20/20 07:15 Dose: 50 mg Documented by: Ibuprofen (Ibuprofen 600 Mg Tablet) 600 mg PO Q8H PRN PRN PRN Reason: Pain Score 1-10 Last Admin: 03/21/20 02:32 Dose: 600 mg Documented by: Lisinopril (Lisinopril 20 Mg Tablet) 20 mg PO DAILY [facility]CLUD[facility] Last Admin: 03/20/20 09:32 Dose: 20 mg Documented by: Loperamide HCl (Loperamide 2 Mg Capsule) 2 mg PO Q4H PRN PRN PRN Reason: LOOSE STOOLS Lorazepam (Lorazepam 2 Mg/Ml Syringe) 2 mg IV Q4H PRN PRN PRN Reason: SEIZURES Nicotine (Nicotine 21 Mg Patch) 21 mg TRANSDERM. DAILY COUNT [facility]CLUD[facility] Last Admin: 03/20/20 09:31 Dose: 21 mg Documented by: Ondansetron HCl (Ondansetron 8 Mg Tablet) 8 mg PO Q8H PRN PRN PRN Reason: NAUSEA Last Admin: 03/20/20 16:36 Dose: 8 mg Documented by: Phenobarbital (Phenobarbital 32.4 Mg Tablet) 64.8 mg PO Q4H [facility]CLUDES THE [facility]; Taper Stop: 03/24/20 03:59 Last Admin: 03/21/20 04:36 Dose: 64.8 mg Documented by: Senna (Senna Tablet) 2 tablet PO QHS PRN PRN Reason: Constipation Thiamine HCl (Thiamine Hydrochloride 100 Mg Tablet) 100 mg PO DAILYCM [facility] Last Admin: 03/20/20 07:16 Dose: 100 mg Documented by: Trazodone HCl (Trazodone 100 Mg Tablet) 100 mg PO QHS PRN PRN Reason: INSOMNIA STROKE Vital Signs/Narrative: Vital Signs Temp Pulse Resp BP Pulse Ox 03/21/20 07:22 97.9 F 79 16 125/77 H 97 Medical Necessity - Tobacco Use Smoking Status: Current every day smoker Tobacco Use: Cigarettes Assessment/Plan All Active Problems (Last Reviewed 03/19/20 @ 19:[address] Ishan Couch, DO) Alcohol withdrawal (Acute) Alcohol withdrawal seizure (Acute) Chest pain (Resolved) Acute kidney injury (Resolved) 1. Acute alcohol withdrawal, CIWA score is 5 Patient continues to require medication and monitoring for withdrawal based on regular assessment and remains appropriate for ASAM level 4.0 Continue on phenobarbital withdrawal protocol as well as thiamine, folic acid, multivitamin Social work consulted 2. Possible alcohol withdrawal seizure, patient is unsure, continue seizure precautions 3. Hypertension, controlled, continue on home lisinopril 4. Nicotine dependence, continue on replacement 5. 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 DVT prophylaxis with early ambulation Inpatient E&M: 94409 Subs Hosp L2
[2020-03-21] MEDS: Folic Acid 1 MG Tablet PO (07:34)
[2020-03-21] MEDS: Aspirin 81 MG TAB.CHEW PO (07:34)
[2020-03-21] MEDS: Gabapentin 300 MG Capsule PO ×3 (07:34→16:29)
[2020-03-21] MEDS: Thiamine Hydrochloride 100 MG Tablet PO (07:35)
[2020-03-21] MEDS: Baclofen 10 MG Tablet 20 MG PO ×2 (10:27→20:46)
[2020-03-21] MEDS: Lisinopril 20 MG Tablet PO (10:28)
[2020-03-21] MEDS: hydrOXYzine PAM 25 MG Capsule 50 MG PO (12:28)
[2020-03-21 16:27] VITALS: BP 140/91; PULSE 79; RESP 16; TEMP 37; O2SAT 96
--- NOTE | 2020-03-21 17:16 | NURSING ---
RAINA FROM [employer] CALLED TO INFORM THAT PT WOULD NOT BE ABLE TO GO TO [facility] AT THIS TIME, BUT WILL NEED TO GO TO ANOTHER FACILITY FIRST.
[2020-03-21 20:39] VITALS: BP 150/77; PULSE 83; RESP 16; TEMP 36.8; O2SAT 100
[2020-03-21] MEDS: Atorvastatin Calcium 40 MG Tablet PO (20:45)
[2020-03-22] MEDS: Phenobarbital 32.4 MG Tablet 64.8 MG PO ×3 (00:20→09:36)
[2020-03-22] MEDS: Gabapentin 300 MG Capsule PO ×3 (00:21→12:01)
[2020-03-22 03:42] VITALS: BP 121/72; PULSE 65; RESP 16; TEMP 36.4; O2SAT 99
--- NOTE | 2020-03-22 07:22 | PCM.PN.HOSP ---
Patient Problems: Active and Suspected Problems (Last Reviewed 03/19/20 @ 19:[address] Ishan Couch, DO) Alcohol withdrawal (Acute) Alcohol withdrawal seizure (Acute) Vitals/I&O's: Vital Signs Temp Pulse Resp BP Pulse Ox 97.5 F L 65 16 121/72 H 99 03/22/20 03:42 03/22/20 03:42 03/22/20 03:42 03/22/20 03:42 03/22/20 03:42 Oxygen Delivery Method Room Air Weight: 83.915 kg Body Mass Index (BMI) 26.5 Intake and Output for Last 24 Hours 03/20/20 03/21/20 03/22/20 23:59 23:59 23:59 Intake Total 2250 / 2250 300 / 300 800 / 800 Output Total 2250 / 2250 500 / 500 1050 / 1050 Balance 0 / 0 -200 / -200 -250 / -250 Current Medications Acetaminophen (Acetaminophen 500 Mg Tablet) 500 mg PO Q4H PRN PRN PRN Reason: Temp > 100.4 F Last Admin: 03/20/20 20:37 Dose: 500 mg Documented by: Al Hydroxide/Mg Hydroxide (Mag Hydrox/Al Hydrox/Simeth 30 Ml Udc) 30 ml PO Q6H PRN PRN PRN Reason: dyspesia Aspirin (Aspirin 81 Mg Tab.Chew) 81 mg PO DAILYCM [facility] Last Admin: 03/21/20 07:34 Dose: 81 mg Documented by: Atorvastatin Calcium (Atorvastatin Calcium 40 Mg Tablet) 40 mg PO QHS [facility] Last Admin: 03/21/20 20:45 Dose: 40 mg Documented by: Baclofen (Baclofen 10 Mg Tablet) 20 mg PO BID [facility] Last Admin: 03/21/20 20:46 Dose: 20 mg Documented by: Bisacodyl (Bisacodyl 10 Mg Suppository) 10 mg RECTAL DAILY PRN PRN Reason: Constipation Dicyclomine HCl (Dicyclomine 10 Mg Capsule) 20 mg PO Q6H PRN PRN PRN Reason: abdominal discomfort Last Admin: 03/20/20 11:50 Dose: 20 mg Documented by: Folic Acid (Folic Acid 1 Mg Tablet) 1 mg PO DAILY@0800 [facility] Last Admin: 03/21/20 07:34 Dose: 1 mg Documented by: Gabapentin (Gabapentin 300 Mg Capsule) 300 mg PO TIDCM [facility] Last Admin: 03/21/20 16:29 Dose: 300 mg Documented by: Gabapentin (Gabapentin 300 Mg Capsule) 300 mg PO Q8H PRN PRN PRN Reason: moderate to severe anxiety Last Admin: 03/22/20 00:21 Dose: 300 mg Documented by: Hydroxyzine Pamoate (Hydroxyzine Jackie 25 Mg Capsule) 50 mg PO Q4H PRN PRN PRN Reason: mild anxiety Last Admin: 03/21/20 12:28 Dose: 50 mg Documented by: Ibuprofen (Ibuprofen 600 Mg Tablet) 600 mg PO Q8H PRN PRN PRN Reason: Pain Score 1-10 Last Admin: 03/21/20 12:28 Dose: 600 mg Documented by: Lisinopril (Lisinopril 20 Mg Tablet) 20 mg PO DAILY [facility] Last Admin: 03/21/20 10:28 Dose: 20 mg Documented by: Loperamide HCl (Loperamide 2 Mg Capsule) 2 mg PO Q4H PRN PRN PRN Reason: LOOSE STOOLS Lorazepam (Lorazepam 2 Mg/Ml Syringe) 2 mg IV Q4H PRN PRN PRN Reason: SEIZURES Nicotine (Nicotine 21 Mg Patch) 21 mg TRANSDERM. DAILY [facility] Last Admin: 03/21/20 10:28 Dose: 21 mg Documented by: Ondansetron HCl (Ondansetron 8 Mg Tablet) 8 mg PO Q8H PRN PRN PRN Reason: NAUSEA Last Admin: 03/20/20 16:36 Dose: 8 mg Documented by: Phenobarbital (Phenobarbital 32.4 Mg Tablet) 64.8 mg PO Q6H [facility]; Taper Stop: 03/24/20 03:59 Last Admin: 03/22/20 03:46 Dose: 64.8 mg Documented by: Senna (Senna Tablet) 2 tablet PO QHS PRN PRN Reason: Constipation Thiamine HCl ([facility] Hydro[facility]ide 100 Mg Tablet) [facility] Last Admin: 03/21/20 07:35 Dose: 100 mg Documented by: Trazodone HCl (Trazodone 100 Mg Tablet) 100 mg PO QHS PRN PRN Reason: INSOMNIA STROKE Vital Signs/Narrative: Vital Signs Temp Pulse Resp BP Pulse Ox 03/22/20 03:42 97.5 F L 65 16 121/72 H 99 Medical Necessity - Tobacco Use Smoking Status: Current every day smoker Tobacco Use: Cigarettes Assessment/Plan All Active Problems (Last Reviewed 03/19/20 @ 19:[address] Ishan Couch, DO) Alcohol withdrawal (Acute) Alcohol withdrawal seizure (Acute) Chest pain (Resolved) Acute kidney injury (Resolved) 1. Acute alcohol withdrawal, CIWA score is 5 Patient continues to require medication and monitoring for withdrawal based on regular assessment and remains appropriate for ASAM level 4.0 Continue on phenobarbital withdrawal protocol as well as thiamine, folic acid, multivitamin Social work consulted 2. Possible alcohol withdrawal seizure, patient is unsure, continue seizure precautions 3. Hypertension, controlled, continue on home lisinopril 4. Nicotine dependence, continue on replacement 5. 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 DVT prophylaxis with early ambulation Inpatient E&M: 65507 Subs Hosp L2
[2020-03-22 07:39] VITALS: BP 124/88; PULSE 78; RESP 16; TEMP 36.6; O2SAT 98
[2020-03-22] MEDS: Thiamine Hydrochloride 100 MG Tablet PO (07:46)
[2020-03-22] MEDS: Folic Acid 1 MG Tablet PO (07:46)
[2020-03-22] MEDS: Aspirin 81 MG TAB.CHEW PO (07:46)
[2020-03-22] MEDS: Lisinopril 20 MG Tablet PO (09:36)
[2020-03-22] MEDS: Baclofen 10 MG Tablet 20 MG PO (09:36)
--- NOTE | 2020-03-22 10:17 | CASEMGMT ---
Social Work Note SW spoke with Etienne at [facility]. Etienne states she had plan set up for pt to admit to [facility] for residential but pt's LLC is too high. Etienne states she is pt's primary counselor and has sent multiple referrals out to agencies for residential. Etienne states she is not sure she will be able to get pt into residential over the weekend as most residential will not take weekend admissions. Etienne states she will update Sarath who will be in to see pt today. Cornelia Rhodes SCALE AGENT, ENTERPRISE INTEGRATION ARCHITECT
--- NOTE | 2020-03-22 12:30 | NURSING ---
This nurse responded to patient call light. Upon entering room, patient was upset and reported that he just wanted to get in his belongings so that he could make some phone calls since he is being kicked out. This nurse stated that he was not aware that patient was being kicked out. This nurse inquired if patient was referring to being discharged. He stated that he was not allowed to report back the sober living housing available through [facility]. he also reported that he was not able to be in any residential treatment. This nurse spoke to Sarath (OTF from [facility]) regarding discharge plan. Sarath informed this nurse that through multiple efforts and various channels that [facility] was unable to find residential treatment for the patient and that this was discussed with patient. The best option provided was that patient could reach out to the [facility] and could [facility]. Patient may be eligible for [address] [place] [address] if he is able to complete and show progress within the outpatient program. Discussed patient's concerns for discharge to [facility] with Dr Torres considering patient had desired to go to residential treatment. Dr Torres asked for additional discharge planning via social work. Discussed scenario with Sarath and Cornelia Rhodes (). Described patient concerns about discharge to [facility] for residence. Cornelia is able to provided alternatives to patient. Information pertaining to patient's belongings and discussion points with social work were relayed to patient including that Dr Torres would be willing to keep patient if appropriate to allow for more thorough discharge planning. Patient stated he was not interested in staying in the hospital beyond this afternoon. Patient provided cell phone per request to arrange post discharge transportation to his vehicle and belongings which were located in [place] at the sober living [facility] of [facility]
--- NOTE | 2020-03-22 14:09 | DCINST_ITS ---
- Discharge Diagnoses Current Active Problems: Current Active and Chronic Problems (Last Reviewed 03/19/20 @ 19:[address] Ishan Couch, DO) Alcohol withdrawal (Acute) Alcohol withdrawal seizure (Acute) Hereditary spastic paraplegia (Chronic) History of coronary artery disease (Chronic) Gastroenteritis (Chronic) Reason(s) for Visit for Discharge Instructions: Acute alcohol withdrawal You will use the following diet at home:: Regular Your food should be the consistency of: Regular Your liquids should be the consistency of: Regular/Thin Discharge Activity: Return to Normal Activity Additional Instructions: You are strongly advised to quit drinking alcohol. Follow-up with housing based on resources. Follow-up with [facility] for outpatient counseling. Allergies/Adverse Reactions: Allergies Penicillins [PCN] Adverse Reaction (Verified 03/19/20 16:48) Unknown Medications to take at Discharge Lisinopril 20 mg PO DAILY 12/16/18 Aspirin 81 mg PO DAILY 08/24/19 Atorvastatin Calcium [Lipitor] 40 mg PO QHS 03/19/20 Baclofen 20 mg PO BID 03/19/20 Gabapentin 300 mg PO TID 03/19/20 Primary Care Physician: Care Physician,No Primary [Primary Care Provider] - Please follow up with your Primary Care Physician in: within 2 weeks Test Results: Test results from this visit will be discussed in further detail at your follow- up appointment, if applicable. Proposed Discharge Date: 03/22/20
--- NOTE | 2020-03-22 14:11 | PCM.DC.SUM ---
Discharge Date and Diagnosis - Problem List Patient Problems: Active and Suspected Problems (Last Reviewed 03/19/20 @ 19:[address] Ishan Couch DO) Alcohol withdrawal (Acute) Alcohol withdrawal seizure (Acute) Date of Admission: 03/19/20 - Primary Discharge Diagnosis Acute Problems: Active Problems (Last Reviewed 03/19/20 @ 19:[address] Ishan Couch DO) Acute alcohol withdrawal Probable alcohol withdrawal seizure Nicotine dependence - Secondary Discharge Diagnosis Chronic Problems: Chronic Problems (Last Reviewed 03/19/20 @ 19:[address] Ishan Couch DO) Hereditary spastic paraplegia (Chronic) History of coronary artery disease (Chronic) Gastroenteritis (Chronic) Hospital Course and Treatment Operations: None Procedures: None Summary of Care Provided: The patient is a 35 year old M with past medical history of alcohol use disorder, who drinks gallons of bourbon comes in requesting for medical stabilization. Patient admitted to being tremulous, nauseated and with headache. He reported having had a probable alcohol withdrawal seizure on the day of admission. Admitted to the medical surgical floor for medical stabilization for acute opioid withdrawal. Patient was monitored for seizures and did not have a seizure during this hospital stay. He was given nicotine replacement. He was seen by the behavioral health team at [facility]. Follow-up appointment was given. Patient however was not eligible for discharge back to his [facility] sobriety housing. He was referred to get housing with [facility]. Social work was involved in resources for housing were given to him. He threatened to sign out against medical advice. He was however discharged as his recent CIWA scoring was very low. Patient Problems: Active and Suspected Problems (Last Reviewed 03/19/20 @ 19:[address] Ishan Couch DO) Alcohol withdrawal (Acute) Alcohol withdrawal seizure (Acute) Subjective: At the day of discharge, patient was seen and examined. He denied any new complaints. He was seen later on in the day by behavioral health, and told that he no longer had housing with his sobriety housing. He was to follow-up with [facility]. Patient became upset and and reportedly told nursing staff that he felt he would be exposed to use drugs if he goes to [facility]. Social work was involved, resources given for housing. He already has outpatient behavioral health appointment set up Objective: Objective: Physical exam: General: Alert, Cooperative, No apparent distress HEENT: Atraumatic, Normocephalic Oral: Moist Mucosa, No Gingival or Mucosal Lesions/ Ulcerations Neck: No Nodes Lungs: Clear to auscultation, Normal air movement, No rhonchi, No wheeze Cardiovascular: Regular rate, Regular Rhythm, Normal S1, Normal S2, No murmurs Abdomen: Bowel Sounds Present, Soft, Non-Distended, laparoscopic dressing intact Extremities: No edema, No Calf Tenderness Skin: No rashes, No breakdown Psych/Mental Status: Normal Affect, Appropriate - Physical Exam Vitals/I&O's: Vital Signs Temp Pulse Resp BP Pulse Ox 97.9 F 78 16 124/88 H 98 03/22/20 07:39 03/22/20 07:39 03/22/20 07:39 03/22/20 07:39 03/22/20 07:39 Oxygen Delivery Method Room Air Weight: 83.915 kg Body Mass Index (BMI) 26.5 Intake and Output for Last 24 Hours 03/20/20 03/21/20 03/22/20 23:59 23:59 23:59 Intake Total 2250 / 2250 300 / 300 800 / 800 Output Total 2250 / 2250 500 / 500 1050 / 1050 Balance 0 / 0 -200 / -200 -250 / -250 Current Medications Acetaminophen (Acetaminophen 500 Mg Tablet) 500 mg PO Q4H PRN PRN PRN Reason: Temp > 100.4 F Last Admin: 03/20/20 20:37 Dose: 500 mg Documented by: Al Hydroxide/Mg Hydroxide (Mag Hydrox/Al Hydrox/Simeth 30 Ml Udc) 30 ml PO Q6H PRN PRN PRN Reason: dyspesia Aspirin ([facility] 81 Mg [facility].Chew) [facility] Last Admin: 03/22/20 07:46 Dose: 81 mg Documented by: Atorvastatin Calcium (Atorvastatin Calcium 40 Mg Tablet) 40 mg PO QHS [facility] Last Admin: 03/21/20 20:45 Dose: 40 mg Documented by: Baclofen (Baclofen 10 Mg Tablet) 20 mg PO BID [facility] Last Admin: 03/22/20 09:36 Dose: 20 mg Documented by: Bisacodyl (Bisacodyl 10 Mg Suppository) 10 mg RECTAL DAILY PRN PRN Reason: Constipation Dicyclomine HCl (Dicyclomine 10 Mg Capsule) 20 mg PO Q6H PRN PRN PRN Reason: abdominal discomfort Last Admin: 03/20/20 11:50 Dose: 20 mg Documented by: Folic Acid (Folic Acid 1 Mg Tablet) 1 mg PO DAILY@0800 [facility] Last Admin: 03/22/20 07:46 Dose: 1 mg Documented by: Gabapentin (Gabapentin 300 Mg Capsule) 300 mg PO TIDCM [facility] Last Admin: 03/22/20 12:01 Dose: 300 mg Documented by: Gabapentin (Gabapentin 300 Mg Capsule) 300 mg PO Q8H PRN PRN PRN Reason: moderate to severe anxiety Last Admin: 03/22/20 00:21 Dose: 300 mg Documented by: Hydroxyzine Pamoate (Hydroxyzine Jackie 25 Mg Capsule) 50 mg PO Q4H PRN PRN PRN Reason: mild anxiety Last Admin: 03/21/20 12:28 Dose: 50 mg Documented by: Ibuprofen (Ibuprofen 600 Mg Tablet) 600 mg PO Q8H PRN PRN PRN Reason: Pain Score 1-10 Last Admin: 03/21/20 12:28 Dose: 600 mg Documented by: Lisinopril (Lisinopril 20 Mg Tablet) 20 mg PO DAILY [facility] Last Admin: 03/22/20 09:36 Dose: 20 mg Documented by: Loperamide HCl (Loperamide 2 Mg Capsule) 2 mg PO Q4H PRN PRN PRN Reason: LOOSE STOOLS Lorazepam (Lorazepam 2 Mg/Ml Syringe) 2 mg IV Q4H PRN PRN PRN Reason: SEIZURES Nicotine (Nicotine 21 Mg Patch) 21 mg TRANSDERM. DAILY [facility] Last Admin: 03/22/20 09:36 Dose: 21 mg Documented by: Ondansetron HCl (Ondansetron 8 Mg Tablet) 8 mg PO Q8H PRN PRN PRN Reason: NAUSEA Last Admin: 03/20/20 16:36 Dose: 8 mg Documented by: Phenobarbital (Phenobarbital 32.4 Mg Tablet) 64.8 mg PO Q6H [facility]; Taper Stop: 03/24/20 03:59 Last Admin: 03/22/20 09:36 Dose: 64.8 mg Documented by: Senna (Senna Tablet) 2 tablet PO QHS PRN PRN Reason: Constipation Thiamine HCl (Thiamine Hydrochloride 100 Mg Tablet) [facility] Last Admin: 03/22/20 07:46 Dose: 100 mg Documented by: Trazodone HCl (Trazodone 100 Mg Tablet) 100 mg PO QHS PRN PRN Reason: INSOMNIA Discharge Diet: Low fat/ Low Cholesterol, 2000 mg Sodium Diet Discharge Activity: Return to Normal Activity Home Medications: Medications to take at Discharge Lisinopril 20 mg PO DAILY 12/16/18 Aspirin 81 mg PO DAILY 08/24/19 Atorvastatin Calcium [Lipitor] 40 mg PO QHS 03/19/20 Baclofen 20 mg PO BID 03/19/20 Gabapentin 300 mg PO TID 03/19/20 Primary Care Physician: Care Physician,No Primary [Primary Care Provider] - Please follow up with your Primary Care Physician in: within 2 weeks Disposition: Home Minutes spent on discharge:: 25 Patient Condition:: Stable Medical Necessity - Tobacco Use Smoking Status: Current every day smoker Tobacco Use: Cigarettes Meaningful Use Info Meaningful Use Diagnoses (Choose all that apply): None applicable Inpatient E&M: 70559 Disch Hosp
--- NOTE | 2020-03-22 14:20 | CASEMGMT ---
Social Work Note OTF updated that pt is not able to admit to [facility] residential, not able to return to [facility] sober living and [facility] has sent 6-7 referrals to residential facilities and none are able to accept pt. Pt is not wanting to leave [facility] but states that he is homeless. SW in to speak with pt. SW introduced self and role at [facility]. Pt is alert and orientated x3. SW provided pt with [facility] resources [facility], [place] [id number]. Pt states [facility] so he doesn't want to go there. SW asked pt about his father as his father is listed on contact sheet. Pt states he could care less about me, as long as I am living he doesn't care. SW asked about family or friends. Pt states I got drinking buddies but that's not a good place for me. Pt states that he was honest to [facility] and now they won't let him return. SW informed pt that per [facility] if he completes IOP then pt will be able to return to sober living. Pt states guess I could sleep in my car. SW asked pt about getting a motel/hotel for a night or two. Pt states I only have $500 and I need that for my car insurance, cell phone and food. Pt states he will just be homeless. While this worker was walking out with pt pt stated well I could say something. SW asked pt to say what he is thinking. Pt states you know. SW explained that this worker didn't know and to tell this worker what he wants to say. Pt states I don't want to say it, never mind. SW specifically asked pt if he had any thoughts/plans/ideations to harm self and pt denied. Pt then left the floor. SW provided pt with housing resources. Pt denied any current suicidal thoughts/plans/ideations. Cornelia Rhodes TUBE DRAW HELPER, PARTICIPANT ADMINISTRATOR
== END 2020-03-22 14:23 | disposition home or self-care (01) | DRG 775 ==
LOC: ED 18:07 → MS3 20:29
PROVIDERS: Emergency Provider Emergency Medicine; Visit Provider Internal Medicine
DX: F10.239 Alcohol dependence with withdrawal, unspecified (principal); I10 Essential (primary) hypertension; I25.10 Atherosclerotic heart disease of native coronary artery without angina pectoris; Z79.899 Other long term (current) drug therapy; F17.210 Nicotine dependence, cigarettes, uncomplicated; D75.1 Secondary polycythemia
CPT/HCPCS: 80053; 80307; 80320; 81001; 85025; 93005; 99284; J7030; A4216; G0480; J2405; J3490

== ENCOUNTER 2020-07-25 12:24 | Inpatient (IN) | payer BC, MEDICAID, SELFPAY ==
[2020-07-25 12:25] VITALS: BP 142/110; PULSE 127; RESP 18; TEMP 36.1; O2SAT 95; BMI 26.5
--- NOTE | 2020-07-25 13:06 | ED.DCSUM_ITS ---
History of Present Illness Chief Complaint: Substance Abuse Informant: Patient Narrative: 35-year-old male presenting for alcohol detox. Patient states he is a very heavy drinker. Patient states he detoxed here about 120 days ago. He states he was clean up until 2 weeks ago. He started drinking very heavily. He states I cannot put a number on how much. Patient states he drinks most of the day. And drinks beer and liquor. Patient admits to history of withdrawal and withdrawal seizure. Patient denies any drug use. - Past Medical History (1) Alcohol withdrawal Status: Chronic (2) Alcohol withdrawal seizure Status: Chronic Past Medical History - Allergies and Home Meds Allergies/Adverse Reactions: Allergies Penicillins [PCN] Adverse Reaction (Verified 07/25/20 12:27) Unknown Past Medical History: - - CAD, hypertension, hyperlipidemia, [place], cardiac stent Surgical History: appendectomy, - - Plate in left ankle. left hand. Smoking Status: Current every day smoker Alcohol: None Drugs: None Review of Systems General: Denies: Chills, Fever, Sweats Eyes: Denies: Visual changes - bilaterally, Diplopia ENT: Denies: Rhinorrhea, Sore throat Cardiovascular: Denies: Chest pain, Palpitations Respiratory: Denies: Dyspnea, Cough, Dyspnea on exertion Gastrointestinal: Denies: Abdominal pain, Nausea, Vomiting, Diarrhea, Melena, Hematochezia Genitourinary: Denies: Dysuria, Hematuria, Frequency Musculoskeletal: Denies: Back pain, Extremity Pain Skin: Denies: Rash, Wounds Neurological: Denies: Headache, Weakness, Numbness Psych: Denies: Depression, Anxiety, Suicidal thoughts, Suicidal ideations, -, - Physical Exam Vital Signs/Narrative: Vital Signs Temp Pulse Resp BP Pulse Ox 07/25/20 12:25 97.0 F L 127 H 18 142/110 H 95 Inital Vital Signs reviewed: Yes General: Well nourished, No Acute Distress Head: Normocephalic, Atraumatic Eyes: Perrl, EOMI ENT: Moist mucous membranes, No rhinorrhea Cardiovascular: Regular rate, Regular rhythm Respiratory: No distress, CTA bilaterally Abdomen: Soft, Nontender, Nondistended Extremities: Nontender, No edema Skin: Normal color, No rash. Negative for: Cyanosis, Diaphoresis, Jaundice Neurological: Alert, Oriented x3, Cranial nerves II-XII grossly intact Psychological: Depressed, Tearful Diagnostic/Tx/Re-eval Laboratory Data 07/25/20 07/25/20 07/25/20 13:35 13:35 13:35 WBC 6.7 RBC 5.62 Hgb 15.8 Hct 46.7 MCV 83.1 MCH 28.1 MCHC 33.8 RDW Std Deviation 38.5 RDW Coeff of Srinivasa 12.7 Plt Count 311 MPV 9.5 Immature Gran % (Auto) 0.500 Neut % (Auto) 52.5 Lymph % (Auto) 40.2 Grimes % (Auto) 6.0 Eos % (Auto) 0.2 Baso % (Auto) 0.6 Absolute Neuts (auto) 3.5 Absolute Lymphs (auto) 2.68 Nucleated RBC % 0 Sodium 140 Potassium 3.7 Chloride 105 Carbon Dioxide 28.0 Anion Gap 7 BUN 15 Creatinine 0.89 Estim Creat Clear Calc 119.62 Est GFR (MDRD) Af Amer 125 Est GFR (MDRD) Non-Af 104 BUN/Creatinine Ratio 16.9 Glucose 126 H Calcium 8.2 L Total Bilirubin 0.20 AST 24 ALT 39 Alkaline Phosphatase 128 H Total Protein 7.7 Albumin 3.6 Globulin 4.1 Albumin/Globulin Ratio 0.9 Lipase 100 Tricyclics Screen Negative Ur Drug Screen Comment Ethyl Alcohol 07/25/20 13:35 WBC RBC Hgb Hct MCV MCH MCHC RDW Std Deviation RDW Coeff of Srinivasa Plt Count MPV Immature Gran % (Auto) Neut % (Auto) Lymph % (Auto) Grimes % (Auto) Eos % (Auto) Baso % (Auto) Absolute Neuts (auto) Absolute Lymphs (auto) Nucleated RBC % Sodium Potassium Chloride Carbon Dioxide Anion Gap BUN Creatinine Estim Creat Clear Calc Est GFR (MDRD) Af Amer Est GFR (MDRD) Non-Af BUN/Creatinine Ratio Glucose Calcium Total Bilirubin AST ALT Alkaline Phosphatase Total Protein Albumin Globulin Albumin/Globulin Ratio Lipase Tricyclics Screen Ur Drug Screen Comment Ethyl Alcohol 289.0 - Medical Decision Making 35-year-old male presenting EtOH detox. Patient states he is a very heavy drinker. He has history of withdrawal seizures. Patient late last year. Patient says his last drink was about 10 AM. On arrival patient initially feels okay. Lab work was ordered. Electrolytes are normal. Renal functions normal. No leukocytosis. EtOH is 289. Patient reevaluated at 1422 and now has some mild shaking. He will be given another dose of Ativan. Will discuss patient with hospitalist and admit him for EtOH withdrawal. Impression: 1. EtOH abuse 2. EtOH withdrawal ED Disposition - Plan for ED Patient: Disposition: [facility] Care [facility]
[2020-07-25] MEDS: LORazepam 2 MG/ML Syringe 1 MG IV ×2 (13:38→14:32)
[2020-07-25] MEDS: 0.9% Normal Saline 1,000 ML 999 ML IV (13:38)
[2020-07-25 13:54] LABS: Absolute Lymphocyte Count 2.68 X10^3/uL (0.83-4.51); Absolute Neutrophil Count 3.5 X10^3/uL (2.0-7.7); Basophil# 0.04 X10^3/uL; Basophil% 0.6 % (0-1); Eosinophil# 0.01 X10^3/uL; Eosinophils% 0.2 % (0-5); Hematocrit 46.7 % (40-54); Hemoglobin 15.8 g/dL (13.0-16.5); Lymphocyte # 2.68 X10^3/ul (4.0); Lymphocyte % 40.2 % (19-41); Mean Corp Hgb Conc 33.8 g/dL (32-36); Mean Corpuscular Hgb 28.1 pg (27.0-32.0); Mean Corpuscular Volume 83.1 fL (80-94); Mean Platelet Vol. 9.5 fl (6.2-12.0); NRBC Flagged by Analyzer 0 % (0-5); Neutrophil % 52.5 % (47-70); Platelet Count 311 K/mm3 (150-450); RBC Distribution Width CV 12.7 % (11.6-14.6); RBC Distribution Width SD 38.5 fl (35.1-43.9); Red Blood Count 5.62 M/mm3 (4.6-6.2); White Blood Count 6.7 K/mm3 (4.4-11.0)
[2020-07-25 14:01] LABS: TCA Internal Control -Neg LINE = VALID (- VALID); TCA Urine Drug Screen Negative (<1000 ng/mL)
[2020-07-25 14:05] LABS: ALB/GLOB Ratio 0.9 RATIO (0.9-2.4); AST(SGOT) 24 U/L (15-37); Alanine Aminotransfer ALT/SGPT 39 U/L (16-61); Albumin, Serum 3.6 g/dL (3.2-5.0); Alkaline Phosphatase 128 U/L (45-117); Anion Gap 7 (5-15); BUN 15 mg/dL (7-18); BUN/Creat Ratio 16.9 RATIO (10-20); Calcium,Total 8.2 mg/dL (8.5-10.1); Chloride 105 mmol/L (98-107); Creatinine, Serum 0.89 mg/dL (0.70-1.30); EST Glomerular Filtration Rate 104 mL/min (>60); Est Glom Filt Rate - Afr Amer 125 mL/min (>60); Estimated Creatinine Clearance 119.62 ml/min; Globulin 4.1 g/dL (2.2-4.2); Glucose 126 mg/dL (74-106); Lipase 100 U/L (73-393); Potassium 3.7 mmol/L (3.5-5.1); Protein, Total 7.7 g/dL (6.4-8.2); Sodium Level 140 mmol/L (136-145)
--- NOTE | 2020-07-25 14:28 | CM.ED ---
Social Work Consult: Substance Abuse Referral Source: Self referral due to reason for visit. Met with patient in room. Introduced self and social services technician role. Patient presenting as intoxicated and patient chart notes that patient has a blood alcohol level of 289.0. Patient is able to speak with this social services technician. Patients to have been sober for 102 days until last Wednesday. Patient denies any specific trigger other then just taking a drink. Patient reports I have days where I do good. Patient reports I have days where I just think, drink, drink, drink. This social services technician inquired about any mental health history for patient. Patient reports I have been told that I am Bi-polar. Patient denies any current medication. Patient currently active with [facility] for substance abuse support. Patient seeking medical management of withdrawal symptoms, [facility] ([facility]). Patient verbally agreeing to [facility] contract. Will updated [facility] on admission ones patient is admitted. Cedric BALDWIN, TSERING-S
[2020-07-25] MEDS: Ondansetron 4 MG/2 ML Vial IV (14:32)
[2020-07-25 14:35] VITALS: BP 140/102; PULSE 103; RESP 16; TEMP 36.7; O2SAT 96
--- NOTE | 2020-07-25 14:39 | HP.PCM_ITS ---
Problem List (1) Alcohol withdrawal Status: Chronic Qualifiers: Complication of substance-induced condition: uncomplicated Qualified Code(s): F10.230 - Alcohol dependence with withdrawal, uncomplicated (2) Hereditary spastic paraplegia Status: Chronic (3) History of coronary artery disease Status: Chronic (4) Nicotine dependence Status: Acute Qualifiers: Nicotine product type: cigarettes Substance use status: unspecified nicotine-induced disorder Qualified Code(s): F17.219 - Nicotine dependence, cigarettes, with unspecified nicotine-induced disorders History of Present Illness Date of Admission: 07/25/20 Chief Complaint: Alcohol withdrawal The patient is a 35 year old M with PMHx of CAD status post stent, hypertension, chronic alcohol use disorder with alcohol withdrawal seizure, who comes in requesting for medical stabilization for acute alcohol withdrawal. Patient admits to drinking about half a gallon to 1 gallon of liquor as well as uncountable amount of beer. He is looking for medical stabilization. Was recently admitted for alcohol withdrawal. He stated that he was able to be clean until 2 weeks ago. He admits to restlessness, tremors. Denied any nausea or vomiting or diarrhea or abdominal pain. He denied any fever or chills. His vitals in the emergency department was essentially stable except for elevated blood pressure 142/110. His admitting blood work was also unremarkable. Urine tox was pending at time of admit. Alcohol level was 289. Past Medical History Past Medical History (Chronic Problems): Chronic Problems (Last Reviewed 03/19/20 @ 19:[address] Ishan Couch DO) Alcohol withdrawal (Chronic) Alcohol withdrawal seizure (Chronic) Hereditary spastic paraplegia (Chronic) History of coronary artery disease (Chronic) Gastroenteritis (Chronic) Medical History: Medical History (Last Reviewed 03/19/20 @ 19:[address] Ishan Couch DO) CAD (coronary artery disease) I25.10 Hypertension I10 Allergies Penicillins [PCN] Adverse Reaction (Verified 07/25/20 12:27) Unknown Home Medications: Ambulatory Orders Medication Instructions Recorded Lisinopril 20 mg PO DAILY 12/16/18 Atorvastatin Calcium [Lipitor] 40 mg PO QHS 03/19/20 Baclofen 20 mg PO BID 03/19/20 Surgical History: appendectomy, - - Plate in left ankle. left hand. Psychiatric History: Bipolar Lives: Alone Smoking Status: Current every day smoker Alcohol: Heavy Drugs: None - *Family History Maternal Family History: Family History (Last Reviewed 03/19/20 @ 19:[address] Ishan Couch DO) Mother Emphysema of lung Father Hereditary spastic paraplegia History Items: COPD Paternal Family History: Family History (Last Reviewed 03/19/20 @ 19:[address] Ishan Couch DO) Mother Emphysema of lung Father Hereditary spastic paraplegia History Items: - - hereditary spastic paraplegia Review of Systems Constitutional: Denies: Anorexia, Chills, Fever, Night Sweats, Malaise, Weakness, Weight Change, Fatigue Eyes: Denies: Blurred vision, Cataracts, Conjunctivae Inflammation HEENT: Denies: Difficulty Hearing, Difficulty Swallowing, Head Aches, Hearing Changes, Sinus Congestion, Sinus Drainage Cardiovascular: Denies: Chest Pain, Claudication, Orthopnea, Palpitations, Paroxysmal Noc. Dyspnea Respiratory: Denies: Cough, Hemoptysis, Shortness of Breath, Shortness of breath at rest, Shortness of breath upon exertion, Sputum production Gastrointestinal: Denies: Abdominal Pain, Constipation, Hematemesis, Hematochezia, Nausea, Vomiting Genitourinary: Denies: Dysuria, Frequency, Incontinence, Nocturia Musculoskeletal: Denies: Joint Pain, Joint stiffness, Joint swelling, Joint Tenderness Skin: Denies: Pruritis, Rash, Wounds Neurological: Reports: Tremor. Denies: Difficulty swallowing, Focal weakness, Numbness, Tingling Psychiatric: Denies: Anxiety, Depression, Homicidal Ideations, Suicidal Ideations Hematologic/ Lymphatic: Denies: Easy Bruising, Easy Bleeding VTE Information - Inpt Only VTE Present on Admission: No VTE Pharm Prophylaxis ordered?: Yes Patient Problems: Active and Suspected Problems (Last Reviewed 03/19/20 @ 19:[address] Ishan Couch DO) Nicotine dependence (Acute) - Physical Exam Vitals/I&O's: Vital Signs Temp Pulse Resp BP Pulse Ox 98.0 F 103 H 16 140/102 H 96 07/25/20 14:35 07/25/20 14:35 07/25/20 14:35 07/25/20 14:35 07/25/20 14:35 Oxygen Delivery Method Room Air Weight: 83.915 kg Body Mass Index (BMI) 26.5 General: Alert, Oriented x3, Cooperative, No apparent distress HEENT: Atraumatic, PERRLA, EOMI, Normocephalic Oral: Moist Mucosa Neck: Supple Lungs: Clear to auscultation, Normal air movement Cardiovascular: Regular rate, Regular Rhythm, Normal S1, Normal S2, No murmurs Abdomen: Bowel Sounds Present, Soft, Non Tender, Non-Distended, No Hepato- splenomegaly Extremities: No edema Skin: No rashes Musculoskeletal: No Tenderness to Palpation of Joints or Extremities Lymphatic: No Cervical, Supraclavicular, or Inguinal Adenopathy Neurological: Cranial nerves II-XII grossly intact, Neuro grossly intact Psych/Mental Status: Normal Affect, Appropriate Laboratory Results 07/25/20 13:35: WBC 6.7, RBC 5.62, Hgb 15.8, Hct 46.7, MCV 83.1, MCH 28.1, MCHC 33.8, RDW Std Deviation 38.5, RDW Coeff of Srinivasa 12.7, Plt Count 311, MPV 9.5, Immature Gran % (Auto) 0.500, Neut % (Auto) 52.5, Lymph % (Auto) 40.2, [place] % (Auto) 6.0, Eos % (Auto) 0.2, Baso % (Auto) 0.6, Absolute Neuts (auto) 3.5, Absolute Lymphs (auto) 2.68, Nucleated RBC % 0 07/25/20 13:35: Sodium 140, Potassium 3.7, Chloride 105, Carbon Dioxide 28.0, Anion Gap 7, BUN 15, Creatinine 0.89, Estim Creat Clear Calc 119.62, Est GFR (MDRD) Af Amer 125, Est GFR (MDRD) Non-Af 104, BUN/Creatinine Ratio 16.9, Glucose 126 H, Calcium 8.2 L, Total Bilirubin 0.20, AST 24, ALT 39, Alkaline Phosphatase 128 H, Total Protein 7.7, Albumin 3.6, Globulin 4.1, Albumin/Globulin Ratio 0.9, Lipase 100 07/25/20 13:35: Tricyclics Screen Negative, Ur Drug Screen Comment 07/25/20 13:35: Ethyl Alcohol 289.0 Assessment/Plan All Active Problems (Last Reviewed 03/19/20 @ 19:[address] Ishan Couch, DO) Nicotine dependence (Acute) Chest pain (Resolved) Acute kidney injury (Resolved) 1. Acute alcohol withdrawal, in a patient with known alcohol use disorder and alcohol withdrawal seizures We will admit on phenobarb taper, folic acid, multivitamin, thiamine 2. Hypertension, uncontrolled, likely secondary to #1 Continue on home lisinopril, will add hydralazine prn 3. Nicotine dependence, continue replacement 4. Hereditary spastic paraplegia, continue on baclofen Will add PT and OT 5. CAD status post stent, continue lisinopril atorvastatin Unclear why he is not on aspirin 6. DVT PPx -low risk, early ambulation recommended Inpatient E&M: 87605 Init Hosp L2
[2020-07-25 15:15] VITALS: BMI 26.6
[2020-07-25 15:20] VITALS: BMI 26.6
[2020-07-25 15:35] VITALS: BP 159/101; PULSE 106; RESP 18; TEMP 37; O2SAT 99
[2020-07-25 16:01] LABS: Amphetamine Urine VISTA NEGATIVE (<1000 ng/mL); Barbiturate Urine VISTA NEGATIVE (< 200 ng/mL); Benzodiazepine Urine VISTA NEGATIVE (< 200 ng/mL); Cocaine Urine VISTA NEGATIVE (< 300 ng/mL); Ecstacy Urine VISTA NEGATIVE (< 500 ng/mL); Methadone Urine VISTA NEGATIVE (< 300 ng/mL); PCP Urine VISTA NEGATIVE (< 25 ng/mL); THC Urine VISTA NEGATIVE (< 50 ng/mL); Vista UDS pH Range 5
[2020-07-25] MEDS: Phenobarbital 32.4 MG Tablet 97.2 MG PO ×2 (16:13→21:15)
[2020-07-25] MEDS: Lisinopril 20 MG Tablet PO (16:13)
[2020-07-25] MEDS: 0.9% Saline Lock 10 ML Syringe IV ×2 (16:14→18:28)
[2020-07-25] MEDS: LORazepam 2 MG/ML Syringe IV ×3 (16:15→21:15)
--- NOTE | 2020-07-25 18:15 | CM.ED ---
Social Work Telephone call to Vonnie Busby. Updated on patient admission to [facility] program. Cedric Hensley MSW, [employer]
[2020-07-25 18:20] VITALS: BP 138/79; PULSE 118; RESP 18; TEMP 36.6
[2020-07-25] MEDS: hydrOXYzine PAM 25 MG Capsule 50 MG PO (18:27)
[2020-07-25] MEDS: Gabapentin 300 MG Capsule PO (18:27)
[2020-07-25] MEDS: Acetaminophen 500 MG Tablet PO (18:27)
[2020-07-25 20:01] VITALS: BP 111/53; PULSE 112; RESP 18; TEMP 36.8; O2SAT 94
[2020-07-25 20:14] LABS: Color, Urine Yellow (Yellow); Glucose, Dipstick Normal (Normal); Ketone-Dipstick Negative (Negative); Leukocyte Esterase-Dipstick Negative /ul (Negative); Nitrite-Dipstick Negative (Negative); Occult Blood-Urine Negative /ul (Negative); Protein-Dipstick 15 mg/dl (Negative); Urine Bilirubin Dipstick Negative (Negative); Urine Clarity Clear (Clear); Urine Urobilinogen Normal (Normal)
[2020-07-25 20:15] LABS: Bacteria 0 SEEN /hpf (None Seen); Mucous, Urine 0 SEEN /hpf (<or=2+); Red Blood Cells-Urine 0 SEEN /hpf (0-5)
[2020-07-25 20:23] LABS: Squamous Epithelial Cells - UA 0-5 SEEN /hpf (0-5); White Blood Cells 0-5 SEEN /hpf (0-5)
[2020-07-25] MEDS: traZODone 100 MG Tablet PO (21:15)
[2020-07-25] MEDS: Cefdinir 300 MG Capsule PO (21:16)
[2020-07-25] MEDS: Atorvastatin Calcium 40 MG Tablet PO (21:17)
[2020-07-25] MEDS: Baclofen 10 MG Tablet 20 MG PO (21:17)
[2020-07-26] MEDS: Phenobarbital 32.4 MG Tablet 97.2 MG PO ×3 (00:23→07:55)
[2020-07-26 00:25] VITALS: BP 98/59; PULSE 96; RESP 18; TEMP 36.8; O2SAT 98
[2020-07-26 04:37] VITALS: BP 108/58; PULSE 89; RESP 18; TEMP 37.3; O2SAT 96
[2020-07-26] MEDS: Gabapentin 300 MG Capsule PO (07:56)
[2020-07-26] MEDS: Folic Acid 1 MG Tablet PO (07:57)
[2020-07-26] MEDS: Thiamine Hydrochloride 100 MG Tablet PO (07:58)
[2020-07-26 08:00] VITALS: PULSE 112
[2020-07-26 09:35] VITALS: BP 112/74; PULSE 114; RESP 18; TEMP 36.6; O2SAT 96
[2020-07-26] MEDS: Cefdinir 300 MG Capsule PO (09:38)
[2020-07-26] MEDS: Baclofen 10 MG Tablet 20 MG PO (09:38)
[2020-07-26] MEDS: Lisinopril 20 MG Tablet PO (09:38)
--- NOTE | 2020-07-26 10:22 | ADDICTION ---
This customs entry writer attempted to meet with PT to complete required assessments and to plan for d/c. PT stated that I need to call my job, if I can't call I'm going to leave. This customs entry writer reminded PT of his contract for the [facility] program and spoke with his nurse and charge nurse who also shared that PT was aware of the rules prior to admitting into the [facility] program. This customs entry writer informed PT that he would not be able to make this phone call based on program regulations. PT asked for his discharge paperwork and began breaking into this personal belongings bins. PT refused to complete assessments. This customs entry writer informed charge nurse.
--- NOTE | 2020-07-26 10:48 | NURSING ---
at 1025 Casi from [employer] came to set up and charger and stated that pt wants his phone and if he doesnt get it then he is leaving. Informed her of contract and that he cant have his phone. Casi stated will let him know. Casi came back to this RN and pt is leaving. AMA papers printed. asked Lamar CHRISTIANO to go open his crates. Lamar states that he was already prying open the crates. AMA paper was given and signed. information on a Taxi was given. Dr. Couch informed.
--- NOTE | 2020-07-26 10:54 | PCM.DC.SUM ---
Discharge Date and Diagnosis - Problem List Patient Problems: Active and Suspected Problems (Last Reviewed 03/19/20 @ 19:[address] Ishan Couch DO) Nicotine dependence (Acute) Date of Admission: 07/25/20 - Primary Discharge Diagnosis Acute Problems: Active Problems (Last Reviewed 03/19/20 @ 19:[address] Ishan Couch DO) alcohol withdrawal - Secondary Discharge Diagnosis Chronic Problems: Chronic Problems (Last Reviewed 03/19/20 @ 19:[address] Ishan Couch DO) Alcohol withdrawal (Chronic) Alcohol withdrawal seizure (Chronic) Hereditary spastic paraplegia (Chronic) History of coronary artery disease (Chronic) Gastroenteritis (Chronic) Hospital Course and Treatment Operations: None Summary of Care Provided: The patient is a 35 year old M presents seeking treatment for alcohol withdrawal. Patient states to me that he drinks anywhere from part of a bottle of gas station vodka to a few beers per day. Patient had been sober for 107 days previous to that and then started drinking again over the past week. Patient was in the hospital less than 24 hours and stated that he was feeling well and was anticipating being discharged on the . Patient was started on phenobarbital. Shortly after I saw the patient this morning, he left AGAINST MEDICAL ADVICE. [] Patient Problems: Active and Suspected Problems (Last Reviewed 03/19/20 @ 19:[address] Ishan Couch DO) Nicotine dependence (Acute) - Physical Exam Vitals/I&O's: Vital Signs Temp Pulse Resp BP Pulse Ox 36.6 C 114 H 18 112/74 96 07/26/20 09:35 07/26/20 09:35 07/26/20 09:35 07/26/20 09:35 07/26/20 09:35 Oxygen Delivery Method Room Air Weight: 84.187 kg Body Mass Index (BMI) 26.6 Intake and Output for Last 24 Hours 07/24/20 07/25/20 07/26/20 23:59 23:59 23:59 Intake Total 2300 / 2300 350 / 350 Balance 2300 / 2300 350 / 350 General: Alert, Cooperative, No apparent distress HEENT: Atraumatic, Normocephalic Oral: Moist Mucosa, No Gingival or Mucosal Lesions/ Ulcerations Neck: No Nodes, Thyroid Normal Size and Texture Lungs: Clear to auscultation, Normal air movement, No rhonchi, No wheeze Cardiovascular: Regular rate, Regular Rhythm, Normal S1, Normal S2 Abdomen: Bowel Sounds Present, Soft, Non Tender, Non-Distended Extremities: No edema, No Calf Tenderness Laboratory Results 07/25/20 13:35: WBC 6.7, RBC 5.62, Hgb 15.8, Hct 46.7, MCV 83.1, MCH 28.1, MCHC 33.8, RDW Std Deviation 38.5, RDW Coeff of Srinivasa 12.7, Plt Count 311, MPV 9.5, Immature Gran % (Auto) 0.500, Neut % (Auto) 52.5, Lymph % (Auto) 40.2, [place] % (Auto) 6.0, Eos % (Auto) 0.2, Baso % (Auto) 0.6, Absolute Neuts (auto) 3.5, Absolute Lymphs (auto) 2.68, Nucleated RBC % 0 07/25/20 13:35: Sodium 140, Potassium 3.7, Chloride 105, Carbon Dioxide 28.0, Anion Gap 7, BUN 15, Creatinine 0.89, Estim Creat Clear Calc 119.62, Est GFR (MDRD) Af Amer 125, Est GFR (MDRD) Non-Af 104, BUN/Creatinine Ratio 16.9, Glucose 126 H, Calcium 8.2 L, Total Bilirubin 0.20, AST 24, ALT 39, Alkaline Phosphatase 128 H, Total Protein 7.7, Albumin 3.6, Globulin 4.1, Albumin/Globulin Ratio 0.9, Lipase 100 07/25/20 13:35: Tricyclics Screen Negative, Ur Drug Screen Comment 07/25/20 13:35: Ethyl Alcohol 289.0 07/25/20 13:35: Urine Opiates Screen NEGATIVE, Urine Methadone Screen NEGATIVE, Ur Barbiturates Screen NEGATIVE, Ur Phencyclidine Scrn NEGATIVE, Ur Amphetamines Screen NEGATIVE, U Methamphetamin-MDMA NEGATIVE, U Benzodiazepines Scrn NEGATIVE, Urine Cocaine Screen NEGATIVE, U Cannabinoids Screen NEGATIVE, Ur Drug Screen Comment 07/25/20 13:35: Urine Color Yellow, Urine Clarity Clear, Urine pH 6.0, Ur Specific [place] 1.020, Urine Protein 15 H, Urine Glucose (UA) Normal, Urine Ketones Negative, Urine Occult Blood Negative, Urine Nitrite Negative, Urine Bilirubin Negative, Urine Urobilinogen Normal, Ur Leukocyte Esterase Negative, Urine RBC 0 SEEN, Urine WBC 0-5 SEEN, Ur Squamous Epith Cells 0-5 SEEN, Urine Bacteria 0 SEEN, Urine Mucus 0 SEEN Current Medications Acetaminophen (Acetaminophen 500 Mg Tablet) 500 mg PO Q4H PRN PRN PRN Reason: Temp > 100.4 F Last Admin: 07/25/20 18:27 Dose: 500 mg Documented by: Al Hydroxide/Mg Hydroxide (Mag Hydrox/Al Hydrox/Simeth 30 Ml Udc) 30 ml PO Q6H PRN PRN PRN Reason: dyspesia Atorvastatin Calcium (Atorvastatin Calcium 40 Mg Tablet) 40 mg PO QHS PENDING SALE TO [facility] Last Admin: 07/25/20 21:17 Dose: 40 mg Documented by: Baclofen (Baclofen 10 Mg Tablet) 20 mg PO BID PENDING SALE TO [facility] Last Admin: 07/26/20 09:38 Dose: 20 mg Documented by: Bisacodyl (Bisacodyl 10 Mg Suppository) 10 mg RC DAILY PRN PRN Reason: Constipation Cefdinir (Cefdinir 300 Mg Capsule) 300 mg PO Q12 PENDING SALE TO [facility] Last Admin: 07/26/20 09:38 Dose: 300 mg Documented by: Dicyclomine HCl (Dicyclomine 10 Mg Capsule) 20 mg PO Q6H PRN PRN PRN Reason: abdominal discomfort Folic Acid (Folic Acid 1 Mg Tablet) 1 mg PO DAILY@0800 PENDING SALE TO [facility] Last Admin: 07/26/20 07:57 Dose: 1 mg Documented by: Gabapentin (Gabapentin 300 Mg Capsule) 300 mg PO Q8H PRN PRN PRN Reason: moderate to severe anxiety Last Admin: 07/26/20 07:56 Dose: 300 mg Documented by: Hydralazine HCl (Hydralazine 20 Mg/Ml Vial) 5 mg IV Q4H PRN PRN PRN Reason: BLOOD PRESSURE Hydroxyzine Pamoate (Hydroxyzine Jackie 25 Mg Capsule) 50 mg PO Q4H PRN PRN PRN Reason: mild anxiety Last Admin: 07/25/20 18:27 Dose: 50 mg Documented by: Lisinopril (Lisinopril 20 Mg Tablet) 20 mg PO DAILY PENDING SALE TO [facility] Last Admin: 07/26/20 09:38 Dose: 20 mg Documented by: Loperamide HCl (Loperamide 2 Mg Capsule) 2 mg PO Q4H PRN PRN PRN Reason: LOOSE STOOLS Lorazepam (Lorazepam 1 Mg Tablet) 2 mg PO Q2H PRN PRN; Protocol PRN Reason: CIWA score > 8 but <15 Lorazepam (Lorazepam 1 Mg Tablet) 2 mg PO UD PRN; Protocol PRN Reason: CIWA score >/=15. Lorazepam (Lorazepam 2 Mg/Ml Syringe) 2 mg IV Q2H PRN PRN; Protocol PRN Reason: CIWA score > 8 but <15 Last Admin: 07/25/20 21:15 Dose: 2 mg Documented by: Lorazepam (Lorazepam 2 Mg/Ml Syringe) 2 mg IV UD PRN; Protocol PRN Reason: CIWA score >/=15. Nicotine (Nicotine 21 Mg Patch) 21 mg TD DAILY PENDING SALE TO [facility] Last Admin: 07/26/20 09:40 Dose: 21 mg Documented by: Ondansetron HCl (Ondansetron 8 Mg Tablet) 8 mg PO Q8H PRN PRN PRN Reason: NAUSEA Phenobarbital (Phenobarbital 32.4 Mg Tablet) 97.2 mg PO Q4H PENDING SALE TO [facility]; Taper Stop: 07/30/20 00:29 Last Admin: 07/26/20 07:55 Dose: 97.2 mg Documented by: Senna (Senna Tablet) 2 tablet PO QHS PRN PRN Reason: Constipation Sodium Chloride (0.9% Saline Lock 10 Ml Syringe) 10 - 40 ml IV UD PRN PRN Reason: SALINE FLUSH Last Admin: 07/25/20 18:28 Dose: 10 ml Documented by: Thiamine HCl (Thiamine Hydrochloride 100 Mg Tablet) [facility] Last Admin: 07/26/20 07:58 Dose: 100 mg Documented by: Trazodone HCl (Trazodone 100 Mg Tablet) 100 mg PO QHS PRN PRN Reason: INSOMNIA Last Admin: 07/25/20 21:15 Dose: 100 mg Documented by: Discharge Diet: No Restrictions Home Medications: Medications to take at Discharge Lisinopril 20 mg PO DAILY 12/16/18 Atorvastatin Calcium [Lipitor] 40 mg PO QHS 03/19/20 Baclofen 20 mg PO BID 03/19/20 Primary Care Physician: Care Physician,No Primary [Primary Care Provider] - Disposition: Against Medical Advice Patient Condition:: Stable Medical Necessity - Tobacco Use Smoking Status: Current every day smoker Tobacco Use: Cigarettes Meaningful Use Info Meaningful Use Diagnoses (Choose all that apply): None applicable Inpatient E&M: 85968 Disch Hosp
== END 2020-07-28 19:19 | disposition left against medical advice (07) | DRG 894 ==
LOC: ED 13:33 → MS3 07-26 07:02
PROVIDERS: Admitting Provider Internal Medicine; Emergency Provider Student in an Organized Health Care Education/Training Program
DX: F10.230 Alcohol dependence with withdrawal, uncomplicated (principal); G11.4 Hereditary spastic paraplegia; Y90.8 Blood alcohol level of 240 mg/100 ml or more; I10 Essential (primary) hypertension; I25.10 Atherosclerotic heart disease of native coronary artery without angina pectoris; F17.210 Nicotine dependence, cigarettes, uncomplicated; Z95.5 Presence of coronary angioplasty implant and graft; Z79.899 Other long term (current) drug therapy
CPT/HCPCS: 36415; 80048; 80053; 80307; 81001; 82077; 83690; 85025; 87086; 99283; J7030; A4216; J2405; J3486

== ENCOUNTER 2020-07-26 17:28 | Inpatient (IN) | payer BC, MEDICAID, SELFPAY ==
[2020-07-25 15:15] VITALS: BMI 26.6
[2020-07-26 17:29] VITALS: BP 140/85; PULSE 124; RESP 18; TEMP 35.9; O2SAT 97; BMI 26.5
[2020-07-26 17:56] VITALS: BP 142/93; PULSE 117; RESP 16; O2SAT 98
--- NOTE | 2020-07-26 18:36 | HP.PCM_ITS ---
Problem List (1) Nicotine dependence Status: Acute Qualifiers: Nicotine product type: cigarettes Substance use status: unspecified nicotine-induced disorder Qualified Code(s): F17.219 - Nicotine dependence, cigarettes, with unspecified nicotine-induced disorders (2) Alcohol dependence Status: Acute Qualifiers: Substance use status: unspecified alcohol-induced disorder Qualified Code(s): F10.29 - Alcohol dependence with unspecified alcohol-induced disorder History of Present Illness Date of Admission: 07/26/20 Chief Complaint: Request for detox The patient is a 35 year old M with PMHx of CAD status post stent, hypertension, chronic alcohol use disorder with alcohol withdrawal seizure, who comes in requesting for medical stabilization for acute alcohol withdrawal. Patient was admitted yesterday 07/25/20 for medical stabilization for acute alcohol withdrawal. He has signed out AGAINST MEDICAL ADVICE because he wanted his phone to use. He was seen by Addiction social work. Patient did not complete the required assessment and asked for his discharge. Patient comes into the ED and stated that he felt that the phenobarbital did not work well for him and lowered request for some other protocol. He admits to going home and drinking vodka and beer. He states that he is hearing voices in his head, he denied any suicidal or homicidal ideation. But he says that the voices in his head wants the opposite of what he wants. At the time of being seen, patient complains of having tics. He is moving his right upper limb and lower limbs randomly. Patient's alcohol level is 213. Past Medical History Past Medical History (Chronic Problems): Chronic Problems (Last Reviewed 03/19/20 @ 19:[address] Ishan Couch DO) Alcohol withdrawal (Chronic) Alcohol withdrawal seizure (Chronic) Hereditary spastic paraplegia (Chronic) History of coronary artery disease (Chronic) Gastroenteritis (Chronic) Medical History: Medical History (Last Reviewed 03/19/20 @ 19:[address] Ishan Couch DO) CAD (coronary artery disease) I25.10 Hypertension I10 Allergies Penicillins [PCN] Adverse Reaction (Verified 07/26/20 17:32) Unknown Home Medications: Ambulatory Orders Medication Instructions Recorded Lisinopril 20 mg PO DAILY 12/16/18 Atorvastatin Calcium [Lipitor] 40 mg PO QHS 03/19/20 Baclofen 20 mg PO BID 03/19/20 Surgical History: appendectomy, - - Plate in left ankle. left hand. Psychiatric History: Bipolar Lives: Alone Smoking Status: Current every day smoker Tobacco Use: Cigarettes - *Family History Maternal Family History: Family History (Last Reviewed 03/19/20 @ 19:[address] Ishan Couch DO) Mother Emphysema of lung Father Hereditary spastic paraplegia History Items: COPD Paternal Family History: Family History (Last Reviewed 03/19/20 @ 19:[address] Ishan Couch DO) Mother Emphysema of lung Father Hereditary spastic paraplegia History Items: - - hereditary spastic paraplegia Review of Systems Comment: Constitutional: Denies: Anorexia, Chills, Fever, Night Sweats, Malaise, Weakness, Weight Change, Fatigue. Eyes: Denies: Blurred vision, Cataracts, Conjunctivae Inflammation. HEENT: Denies: Difficulty Hearing, Difficulty Swallowing, Head Aches, Hearing Changes, Sinus Congestion, Sinus Drainage. Cardiovascular: Denies: Chest Pain, Claudication, Orthopnea, Palpitations, Paroxysmal Noc. Dyspnea. Respiratory: Denies: Cough, Hemoptysis, Shortness of Breath, Shortness of breath at rest, Shortness of breath upon exertion, Sputum production. Gastrointestinal: Denies: Abdominal Pain, Constipation, Hematemesis, Hematochezia, Nausea, Vomiting. Genitourinary: Denies: Dysuria, Frequency, Incontinence, Nocturia. Musculoskeletal: Denies: Joint Pain, Joint stiffness, Joint swelling, Joint Tenderness. Skin: Denies: Pruritis, Rash, Wounds. Neurological: Reports: Tremor. Denies: Difficulty swallowing, Focal weakness, Numbness, Tingling. Psychiatric: Admits to hearing voices, denies suicidal or homicidal ideation. Hematologic/ Lymphatic: Denies: Easy Bruising, Easy Bleeding VTE Information - Inpt Only VTE Present on Admission: No VTE Pharm Prophylaxis ordered?: Yes Patient Problems: Active and Suspected Problems (Last Reviewed 03/19/20 @ 19:[address] Ishan Couch DO) Alcohol dependence (Acute) Objective: General: Alert, Oriented x3, Cooperative, No apparent distress HEENT: Atraumatic, PERRLA, EOMI, Normocephalic Oral: Moist Mucosa Neck: Supple Lungs: Clear to auscultation, Normal air movement Cardiovascular: Regular rate, Regular Rhythm, Normal S1, Normal S2, No murmurs Abdomen: Bowel Sounds Present, Soft, Non Tender, Non-Distended, No Hepato- splenomegaly Extremities: No edema Skin: No rashes Musculoskeletal: No Tenderness to Palpation of Joints or Extremities Lymphatic: No Cervical, Supraclavicular, or Inguinal Adenopathy Neurological: Cranial nerves II-XII grossly intact, Neuro grossly intact Psych/Mental Status: Normal Affect, Appropriate - Physical Exam Vitals/I&O's: Vital Signs Temp Pulse Resp BP Pulse Ox 96.7 F L 117 H 16 142/93 H 98 07/26/20 17:29 07/26/20 17:56 07/26/20 17:56 07/26/20 17:56 07/26/20 17:56 Oxygen Delivery Method Room Air Weight: 83.915 kg Body Mass Index (BMI) 26.5 Assessment/Plan All Active Problems (Last Reviewed 03/19/20 @ 19:[address] Ishan Couch, DO) Nicotine dependence (Acute) Alcohol dependence (Acute) Chest pain (Resolved) Acute kidney injury (Resolved) 1. Acute alcohol intoxication with request for medical stabilization, in a patient with known alcohol use disorder and alcohol withdrawal seizures Monitor for acute alcohol withdrawal and start Ativan taper if needed Continue folic acid, multivitamin, thiamine 2. Acute psychosis, patient's urine tox positive for barbiturates Suspect patient took some medications when he signed out AMA Give Geodon 20 mg IM x1 as well as Ativan 2mg IM x1 3. Hypertension, well controlled Continue on home lisinopril 4. Nicotine dependence, continue replacement 5. Hereditary spastic paraplegia, continue on baclofen 6. CAD status post stent, continue lisinopril atorvastatin Unclear why he is not on aspirin 7. DVT PPx -low risk, early ambulation recommended Inpatient E&M: 33412 Init Hosp L2
[2020-07-26 18:54] LABS: Amphetamine Urine VISTA NEGATIVE (<1000 ng/mL); Barbiturate Urine VISTA POSITIVE (< 200 ng/mL); Benzodiazepine Urine VISTA NEGATIVE (< 200 ng/mL); Cocaine Urine VISTA NEGATIVE (< 300 ng/mL); Ecstacy Urine VISTA NEGATIVE (< 500 ng/mL); Methadone Urine VISTA NEGATIVE (< 300 ng/mL); PCP Urine VISTA NEGATIVE (< 25 ng/mL); THC Urine VISTA NEGATIVE (< 50 ng/mL); Vista UDS pH Range 5
--- NOTE | 2020-07-26 19:00 | ED.DCSUM_ITS ---
History of Present Illness Chief Complaint: Substance Abuse Informant: Patient Narrative: Presents after leaving AMA this morning for alcohol detox. He was admitted for 1 day yesterday left earlier this morning. He drinks both vodka and beer. States he relapsed in the last 2 weeks. He was detoxed here 3 to 4 months ago. He states the reason for leaving today was that he did not like how phenobarbital made him feel. This was used on his last detox admission for which she reported to me. He states he does better with Ativan. He admits to going home and drinking both vodka and beer. He was brought in by his friend after doing a well check. He denies suicidal or homicidal ideations. He denies any auditory or visual hallucinations. Denies any nausea or vomiting. Does admit to morning tremors. Denies any withdrawal seizures. He states he is willing to go and try detox regimen however ask if there was another regimen besides phenobarbital or least a lower dose from discussion. Prior similar symptoms: Yes Past Medical History - Allergies and Home Meds Allergies/Adverse Reactions: Allergies Penicillins [PCN] Adverse Reaction (Verified 07/26/20 17:32) Unknown Primary Care Physician: Care Physician,No Primary [Primary Care Provider] - Past Medical History: - - Alcohol dependence Surgical History: appendectomy, - - Plate in left ankle. left hand. Smoking Status: Current every day smoker - Family History Maternal Family History: Family History (Last Reviewed 03/19/20 @ 19:[address] Ishan Couch DO) Mother Emphysema of lung Father Hereditary spastic paraplegia Family History: Reports: COPD Paternal Family History: Family History (Last Reviewed 03/19/20 @ 19:[address] Ishan Couch DO) Mother Emphysema of lung Father Hereditary spastic paraplegia Family History: Reports: - - hereditary spastic paraplegia Review of Systems General: Denies: Chills, Fever, Sweats Eyes: Denies: Visual changes - bilaterally, Diplopia ENT: Denies: Rhinorrhea, Sore throat Cardiovascular: Denies: Chest pain, Palpitations Respiratory: Denies: Dyspnea, Cough, Dyspnea on exertion Gastrointestinal: Denies: Abdominal pain, Nausea, Vomiting, Diarrhea, Melena, Hematochezia Genitourinary: Denies: Dysuria, Hematuria, Frequency Musculoskeletal: Denies: Back pain, Extremity Pain Skin: Denies: Rash, Wounds Neurological: Denies: Headache, Weakness, Numbness Physical Exam Vital Signs/Narrative: Vital Signs Temp Pulse Resp BP Pulse Ox 07/26/20 17:56 117 H 16 142/93 H 98 07/26/20 17:29 96.7 F L 124 H 18 140/85 H 97 General: Well nourished, Well developed, No Acute Distress, - - Slight alcohol intoxication, however cooperative answering questions appropriately. Head: Normocephalic, Atraumatic Eyes: Perrl, EOMI ENT: Moist mucous membranes, No rhinorrhea Neck: Supple, Nontender Cardiovascular: Regular rhythm, No murmurs, Tachycardia Respiratory: No distress, CTA bilaterally, Chest nontender Abdomen: Soft, Nontender, Nondistended, Normal bowel sounds Back: Nontender, Normal Inspection Extremities: Nontender, No edema Skin: Normal color, No rash Neurological: Alert, Oriented x3, Cranial nerves II-XII grossly intact, Normal Strength, Normal Sensation Psychological: - - Slight intoxication, denies suicidal homicidal ideations. Diagnostic/Tx/Re-eval - Medical Decision Making After discussion with the patient he is willing to try the detox regimen per the hospital. I spoke with hospitalist Dr. Torres who took care of him yesterday and agrees to readmit him. She reported phenobarbital is use along with as needed Ativan. Labs are sent and pending urine did note tox screen of barbiturates however he was given phenobarbital. ED Disposition - Plan for ED Patient: [facility] Diagnosis: Alcohol dependence Referrals: Care Physician,No Primary [Primary Care Provider] -
[2020-07-26 19:03] VITALS: BMI 26.5
--- NOTE | 2020-07-26 19:21 | ED.RN ---
pt was read aloud the [facility] RAMP contract. two rn's present at time of signing. pt expressed understanding. elias luna rn 1921
--- NOTE | 2020-07-26 19:29 | CM.ED ---
SOCIAL WORK Reason for Consult: Substance Abuse- patient requesting detox from alcohol. Patient left AMA from [facility]. Call to [facility] Treatment Navigator, Noelle. Updated on patient's admission to [facility]. Noelle to be in tomorrow to complete assessment. Plan: [facility] Quintero, MARKETING INTELLIGENCE MANAGER, ROUTE DELIVERY DRIVER
[2020-07-26 19:47] VITALS: BP 142/93; PULSE 117; RESP 16; TEMP 35.9; O2SAT 98
--- NOTE | 2020-07-26 20:00 | NURSING ---
pt agitated, states he hears voices, waving arms in the air. Pt states he has tics from psych disorder. movements help me not loss control or get violent. pt hitting himself in the chest and head. Dr. Torres in to see pt.
[2020-07-26 20:09] VITALS: BMI 26.6
[2020-07-26 20:30] LABS: Absolute Lymphocyte Count 1.76 X10^3/uL (0.83-4.51); Absolute Neutrophil Count 5.1 X10^3/uL (2.0-7.7); Basophil# 0.02 X10^3/uL; Basophil% 0.3 % (0-1); Eosinophil# 0.03 X10^3/uL; Eosinophils% 0.4 % (0-5); Hematocrit 41.8 % (40-54); Hemoglobin 14.5 g/dL (13.0-16.5); Lymphocyte # 1.76 X10^3/ul (4.0); Lymphocyte % 23.4 % (19-41); Mean Corp Hgb Conc 34.7 g/dL (32-36); Mean Corpuscular Hgb 28.2 pg (27.0-32.0); Mean Corpuscular Volume 81.2 fL (80-94); Mean Platelet Vol. 9.6 fl (6.2-12.0); NRBC Flagged by Analyzer 0 % (0-5); Neutrophil # 5.08 X10^3/uL (2.7-7.7); Neutrophil % 67.6 % (47-70); Platelet Count 249 K/mm3 (150-450); RBC Distribution Width CV 12.1 % (11.6-14.6); RBC Distribution Width SD 35.9 fl (35.1-43.9); Red Blood Count 5.15 M/mm3 (4.6-6.2); White Blood Count 7.5 K/mm3 (4.4-11.0)
[2020-07-26 20:43] LABS: Anion Gap 5 (5-15); BUN 10 mg/dL (7-18); BUN/Creat Ratio 17.5 RATIO (10-20); Calcium,Total 8.3 mg/dL (8.5-10.1); Chloride 107 mmol/L (98-107); Creatinine, Serum 0.57 mg/dL (0.70-1.30); EST Glomerular Filtration Rate 172 mL/min (>60); Est Glom Filt Rate - Afr Amer 208 mL/min (>60); Estimated Creatinine Clearance 186.77 ml/min; Glucose 108 mg/dL (74-106); Potassium 3.7 mmol/L (3.5-5.1); Sodium Level 139 mmol/L (136-145)
[2020-07-26] MEDS: Ziprasidone IM 20 MG/ML VIAL IM (21:00)
[2020-07-27 03:20] VITALS: BP 133/85; PULSE 98; RESP 16; TEMP 36.8; O2SAT 96
[2020-07-27] MEDS: LORazepam 2 MG/ML Syringe IM (03:44)
[2020-07-27 08:14] VITALS: BP 134/92; PULSE 104; RESP 18; TEMP 37.1; O2SAT 97
[2020-07-27] MEDS: Thiamine Hydrochloride 100 MG Tablet PO (08:56)
[2020-07-27] MEDS: LORazepam 1 MG Tablet PO ×4 (08:56→20:25)
[2020-07-27] MEDS: Folic Acid 1 MG Tablet PO (08:56)
--- NOTE | 2020-07-27 11:11 | PN_ITS ---
Patient Problems: Active and Suspected Problems (Last Reviewed 03/19/20 @ 19:[address] Ishan Couch, DO) Nicotine dependence (Acute) Alcohol dependence (Acute) Subjective: Feels ill. complains of tremors, nausea. Doesn't recall much of events yesterday. States that he willing to complete treatment for alcohol withdrawal in the hospital then to follow up with program for further recovery upon discharge. Vitals/I&O's: Vital Signs Temp Pulse Resp BP Pulse Ox 37.1 C 104 H 18 134/92 H 97 07/27/20 08:14 07/27/20 08:14 07/27/20 08:14 07/27/20 08:14 07/27/20 08:14 Oxygen Delivery Method Room Air Weight: 84.4 kg Body Mass Index (BMI) 26.6 Intake and Output for Last 24 Hours 07/25/20 07/26/20 07/27/20 23:59 23:59 23:59 Intake Total 640 / 640 Balance 640 / 640 General: Alert, No apparent distress, - HEENT: Atraumatic, Normocephalic Oral: Moist Mucosa, No Gingival or Mucosal Lesions/ Ulcerations Neck: No Nodes, Thyroid Normal Size and Texture Lungs: Clear to auscultation, Normal air movement, No rhonchi, No wheeze Cardiovascular: Regular rate, Regular Rhythm, Normal S1, Normal S2, No murmurs Abdomen: Bowel Sounds Present, Soft, Non Tender, Non-Distended, No Hepato- splenomegaly Extremities: No edema, No Calf Tenderness Skin: No rashes, No breakdown Musculoskeletal: No Tenderness to Palpation of Joints or Extremities, No Muscle Wasting Laboratory Results 07/26/20 18:03: Urine Opiates Screen NEGATIVE, Urine Methadone Screen NEGATIVE, Ur Barbiturates Screen POSITIVE H, Ur Phencyclidine Scrn NEGATIVE, Ur Amphetamines Screen NEGATIVE, U Methamphetamin-MDMA NEGATIVE, U Benzodiazepines Scrn NEGATIVE, Urine Cocaine Screen NEGATIVE, U Cannabinoids Screen NEGATIVE, Ur Drug Screen Comment 07/26/20 20:21: WBC 7.5, RBC 5.15, Hgb 14.5, Hct 41.8, MCV 81.2, MCH 28.2, MCHC 34.7, RDW Std Deviation 35.9, RDW Coeff of Srinivasa 12.1, Plt Count 249, MPV 9.6, Immature Gran % (Auto) 0.300, Neut % (Auto) 67.6, Lymph % (Auto) 23.4, [place] % (Auto) 8.0, Eos % (Auto) 0.4, Baso % (Auto) 0.3, Absolute Neuts (auto) 5.1, Absolute Lymphs (auto) 1.76, Nucleated RBC % 0 07/26/20 20:21: Sodium 139, Potassium 3.7, Chloride 107, Carbon Dioxide 27.0, Anion Gap 5, BUN 10, Creatinine 0.57 L, Estim Creat Clear Calc 186.77, Est GFR (MDRD) Af Amer 208, Est GFR (MDRD) Non-Af 172, BUN/Creatinine Ratio 17.5, Glucose 108 H, Calcium 8.3 L 07/26/20 20:21: Ethyl Alcohol 213.0 Current Medications Acetaminophen (Acetaminophen 500 Mg Tablet) 500 mg PO Q4H PRN PRN PRN Reason: Temp > 100.4 F Al Hydroxide/Mg Hydroxide (Mag Hydrox/Al Hydrox/Simeth 30 Ml Udc) 30 ml PO Q6H PRN PRN PRN Reason: dyspesia Dicyclomine HCl (Dicyclomine 10 Mg Capsule) 20 mg PO Q6H PRN PRN PRN Reason: abdominal discomfort Folic Acid (Folic Acid 1 Mg Tablet) 1 mg PO DAILY@0800 [facility] Last Admin: 07/27/20 08:56 Dose: 1 mg Documented by: Gabapentin (Gabapentin 300 Mg Capsule) 300 mg PO Q8H PRN PRN PRN Reason: moderate to severe anxiety Hydroxyzine Pamoate (Hydroxyzine Jackie 25 Mg Capsule) 50 mg PO Q4H PRN PRN PRN Reason: mild anxiety Ibuprofen (Ibuprofen 600 Mg Tablet) 600 mg PO Q8H PRN PRN PRN Reason: PAIN 1-10 Loperamide HCl (Loperamide 2 Mg Capsule) 2 mg PO Q4H PRN PRN PRN Reason: LOOSE STOOLS Lorazepam (Lorazepam 1 Mg Tablet) 2 mg PO Q4H [facility]; Taper Stop: 07/31/20 16:59 Last Admin: 07/27/20 08:56 Dose: 2 mg Documented by: Nicotine (Nicotine 21 Mg Patch) 21 mg TD DAILY [facility] Last Admin: 07/27/20 08:56 Dose: 21 mg Documented by: Ondansetron HCl (Ondansetron 8 Mg Tablet) 8 mg PO Q8H PRN PRN PRN Reason: NAUSEA Senna (Senna Tablet) 2 tablet PO QHS PRN PRN Reason: Constipation Sodium Chloride (0.9% Saline Lock 10 Ml Syringe) 10 - 40 ml IV UD PRN PRN Reason: SALINE FLUSH Thiamine HCl (Thiamine Hydrochloride 100 Mg Tablet) 100 mg PO DAILYCM [facility] Last Admin: 07/27/20 08:56 Dose: 100 mg Documented by: Trazodone HCl (Trazodone 100 Mg Tablet) 100 mg PO QHS PRN PRN Reason: INSOMNIA STROKE Vital Signs/Narrative: Vital Signs Temp Pulse Resp BP Pulse Ox 07/27/20 08:14 37.1 C 104 H 18 134/92 H 97 Medical Necessity - Tobacco Use Smoking Status: Current every day smoker Tobacco Use: Cigarettes Assessment/Plan All Active Problems (Last Reviewed 03/19/20 @ 19:[address] Ishan Couch, DO) Nicotine dependence (Acute) Alcohol dependence (Acute) Chest pain (Resolved) Acute kidney injury (Resolved) 1. acute alcohol withdrawal pt did not like the grogginess with phenobarbital. Will to try lorazepam continue thiamine and folate and PRN meds for withdrawal somatic complaints. He has no program arranged as outpt. He willing to discuss with addiction medicine for an outpt program (he does not want a residential program) Reassurance provided to patient, and reinforced that our role is supportive for his addiction recover and we (the medical staff) are not here to pass judgement upon him. 2. agitation: required ziprasidone last night. Currently he is calm, though initially was abrasive with me (what do you want?) but did see more receptive when I reiterated our roles with him. 3. VTE prophylaxis: not indicated. ambulate. Nurse present during encounter. Inpatient E&M: 94313 Subs Hosp L2
[2020-07-27 12:56] VITALS: BP 128/71; PULSE 98; RESP 16; TEMP 36.3; O2SAT 98
[2020-07-27 17:03] VITALS: BP 142/100; PULSE 103; RESP 16; TEMP 36.8; O2SAT 97
[2020-07-27] MEDS: Ibuprofen 600 MG Tablet PO (18:01)
[2020-07-27] MEDS: Gabapentin 300 MG Capsule PO (18:01)
[2020-07-27 20:06] VITALS: BP 140/84; PULSE 99; RESP 18; TEMP 36.7; O2SAT 98
--- NOTE | 2020-07-27 20:20 | NURSING ---
Per pt request tried to contact Debora ([phone]) to let her know he has been admitted
[2020-07-27] MEDS: traZODone 100 MG Tablet PO (20:22)
[2020-07-27] MEDS: hydrOXYzine PAM 25 MG Capsule 50 MG PO (20:22)
[2020-07-28] MEDS: LORazepam 1 MG Tablet PO ×5 (02:00→16:55)
[2020-07-28] MEDS: Gabapentin 300 MG Capsule PO ×3 (02:01→18:36)
[2020-07-28] MEDS: Ibuprofen 600 MG Tablet PO ×3 (02:01→18:36)
[2020-07-28 02:13] VITALS: BP 136/78; PULSE 94; RESP 17; TEMP 36.8; O2SAT 97
--- NOTE | 2020-07-28 07:35 | NURSING ---
Attempted to contact Debora (pt girlfriend) to let her know of pt admit status, was unable to reach her again.
[2020-07-28 08:11] VITALS: BP 127/74; PULSE 86; RESP 16; TEMP 36.6; O2SAT 97
[2020-07-28] MEDS: Folic Acid 1 MG Tablet PO (08:40)
[2020-07-28] MEDS: Thiamine Hydrochloride 100 MG Tablet PO (08:40)
--- NOTE | 2020-07-28 09:37 | PCM.PN.HOSP ---
Patient Problems: Active and Suspected Problems (Last Reviewed 03/19/20 @ 19:[address] Ishan Couch, DO) Nicotine dependence (Acute) Alcohol dependence (Acute) Subjective: Patient sleeping. Opens his eyes briefly but does not interact with me. Vitals/I&O's: Vital Signs Temp Pulse Resp BP Pulse Ox 36.6 C 86 16 127/74 H 97 07/28/20 08:11 07/28/20 08:11 07/28/20 08:11 07/28/20 08:11 07/28/20 08:11 Oxygen Delivery Method Room Air Weight: 84.4 kg Body Mass Index (BMI) 26.6 Intake and Output for Last 24 Hours 07/26/20 07/27/20 07/28/20 23:59 23:59 23:59 Intake Total 2140 / 2140 950 / 950 Output Total 600 / 600 250 / 250 Balance 1540 / 1540 700 / 700 General: - - Opens eyes briefly and closed does not interact. HEENT: Atraumatic, Normocephalic Neck: No Nodes, Thyroid Normal Size and Texture Lungs: Clear to auscultation, Normal air movement, No rhonchi, No wheeze, No rales Cardiovascular: Regular rate, Regular Rhythm, Normal S1, Normal S2 Abdomen: Bowel Sounds Present, Soft, Non Tender, Non-Distended Extremities: No edema, No Calf Tenderness Skin: No rashes, No breakdown, - Musculoskeletal: No Tenderness to Palpation of Joints or Extremities, No Muscle Wasting Psych/Mental Status: Normal Affect, Appropriate Current Medications Acetaminophen (Acetaminophen 500 Mg Tablet) 500 mg PO Q4H PRN PRN PRN Reason: Temp > 100.4 F Al Hydroxide/Mg Hydroxide (Mag Hydrox/Al Hydrox/Simeth 30 Ml Udc) 30 ml PO Q6H PRN PRN PRN Reason: dyspesia Dicyclomine HCl (Dicyclomine 10 Mg Capsule) 20 mg PO Q6H PRN PRN PRN Reason: abdominal discomfort Folic Acid (Folic Acid 1 Mg Tablet) 1 mg PO DAILY@0800 [facility] Last Admin: 07/28/20 08:40 Dose: 1 mg Documented by: Gabapentin (Gabapentin 300 Mg Capsule) 300 mg PO Q8H PRN PRN PRN Reason: moderate to severe anxiety Last Admin: 07/28/20 02:01 Dose: 300 mg Documented by: Hydroxyzine Pamoate (Hydroxyzine Jackie 25 Mg Capsule) 50 mg PO Q4H PRN PRN PRN Reason: mild anxiety Last Admin: 07/27/20 20:22 Dose: 50 mg Documented by: Ibuprofen (Ibuprofen 600 Mg Tablet) 600 mg PO Q8H PRN PRN PRN Reason: PAIN 1-10 Last Admin: 07/28/20 02:01 Dose: 600 mg Documented by: Loperamide HCl (Loperamide 2 Mg Capsule) 2 mg PO Q4H PRN PRN PRN Reason: LOOSE STOOLS Lorazepam (Lorazepam 1 Mg Tablet) 2 mg PO Q4H [facility]; Taper Stop: 07/31/20 16:59 Last Admin: 07/28/20 08:40 Dose: 2 mg Documented by: Nicotine (Nicotine 21 Mg Patch) 21 mg TD DAILY [facility] Last Admin: 07/28/20 08:39 Dose: 21 mg Documented by: Ondansetron HCl (Ondansetron 8 Mg Tablet) 8 mg PO Q8H PRN PRN PRN Reason: NAUSEA Senna (Senna Tablet) 2 tablet PO QHS PRN PRN Reason: Constipation Sodium Chloride (0.9% Saline Lock 10 Ml Syringe) 10 - 40 ml IV UD PRN PRN Reason: SALINE FLUSH Thiamine HCl ([facility] Hydro[facility]ide 100 Mg Tablet) [facility] Last Admin: 07/28/20 08:40 Dose: 100 mg Documented by: Trazodone HCl (Trazodone 100 Mg Tablet) 100 mg PO QHS PRN PRN Reason: INSOMNIA Last Admin: 07/27/20 20:22 Dose: 100 mg Documented by: STROKE Vital Signs/Narrative: Vital Signs Temp Pulse Resp BP Pulse Ox 07/28/20 08:11 36.6 C 86 16 127/74 H 97 Medical Necessity - Tobacco Use Smoking Status: Current every day smoker Tobacco Use: Cigarettes Assessment/Plan All Active Problems (Last Reviewed 03/19/20 @ 19:[address] Ishan Couch DO) Nicotine dependence (Acute) Alcohol dependence (Acute) Chest pain (Resolved) Acute kidney injury (Resolved) 35-year-old white male who has been sober for 100 some days and then started resuming drinking large quantities of alcohol for about a week presented for treatment for acute alcohol withdrawal but left AGAINST MEDICAL ADVICE in 1 to return intoxicated. Patient that stated that he did not tolerate the phenobarbital taper because out made him feel so was transitioned over to lorazepam. Previously, patient refused doing assessment with addiction medicine right before he left AGAINST MEDICAL ADVICE. It is unclear how committed the patient will to trying to remain sober. 1. acute alcohol withdrawal Previously pt did not like the grogginess with phenobarbital. Continue lorazepam taper continue thiamine and folate and PRN meds for withdrawal somatic complaints. He has no program arranged as outpt. He willing to discuss with addiction medicine for an outpt program (he does not want a residential program) 2. agitation: required ziprasidone 07/26. Currently he is calm, though initially was abrasive with me (what do you want?) but did see more receptive when I reiterated our roles with him. 3. VTE prophylaxis: not indicated. ambulate. Inpatient E&M: 05455 Subs Hosp L2
[2020-07-28 13:36] VITALS: BP 132/84; PULSE 104; RESP 16; TEMP 36.8; O2SAT 94
[2020-07-28 16:47] VITALS: BP 117/79; PULSE 91; RESP 16; TEMP 37; O2SAT 95
--- NOTE | 2020-07-28 19:15 | NURSING ---
pt is leaving AMA, c/o not getting the IV Ativan and he can't smoke or get fresh air.
--- NOTE | 2020-07-28 19:16 | DS.PCM_ITS ---
Discharge Date and Diagnosis - Problem List Patient Problems: Active and Suspected Problems (Last Reviewed 03/19/20 @ 19:[address] Ishan Couch DO) Nicotine dependence (Acute) Alcohol dependence (Acute) Date of Admission: 07/26/20 Date of Discharge: 07/28/20 - Primary Discharge Diagnosis Acute Problems: Active Problems (Last Reviewed 03/19/20 @ 19:[address] Ishan Couch DO) Nicotine dependence (Acute) Alcohol dependence (Acute) - Secondary Discharge Diagnosis Chronic Problems: Chronic Problems (Last Reviewed 03/19/20 @ 19:[address] Ishan Couch DO) Alcohol withdrawal (Chronic) Alcohol withdrawal seizure (Chronic) Hereditary spastic paraplegia (Chronic) History of coronary artery disease (Chronic) Gastroenteritis (Chronic) Hospital Course and Treatment Operations: None Summary of Care Provided: The patient is a 35 year old M presents within 12 hour after leaving AMA for alcohol withdrawal treatment. The earlier admission patient was placed on a phenobarbital taper. He left on the and informed the staff it was so he could use his phone to call his work. He came back within 12 hours again seeking treatment for alcohol withdrawal and was intoxicated. Patient was very agitated that night and did require antipsychotics. I evaluated the patient on the and he glared at me and said What do you want?. I reinforced the goals of the program are to help him and we are not passing judgment. I acknowledged the difficulty of addiction, and the difficulty taking the first step towards sobriety. He said the phenobarbital made him too groggy, but agreed to the lorazepam taper which was started on the . I went to evaluate the patient on the . He would open his eyes, but refused to interact with me. This evening he became angry with staff that the ibuprofen was insuffient for his back pain and demanded IV lorazepam. I spoke with the RN and added acetaminophen to pain control and increased the dose of his ibuprofen, but stated I would not change lorazepam to IV. Shortly afterwards he said he was leaving AMA. This time he said it was because he couldn't smoke. This patient clearly has psychiatric issues weather it be depression, anxiety, borderline personality, etc.) that require further stabilization. Until there are adequately addressed, he will continue to fail in maintaining sobriety. Additionally, his abrasive and intimidating behavior, I feel, could rapidly escalate and could be a potential threat to staff. It is my recommendation that until his psychiatric, compulsive, belligerent behavior is stabilized by the appropriate professionals; he should not be readmitted to RAMP program at [facility].[] Patient Problems: Active and Suspected Problems (Last Reviewed 03/19/20 @ 19:[address] Ishan Couch, DO) Nicotine dependence (Acute) Alcohol dependence (Acute) - Physical Exam Vitals/I&O's: Vital Signs Temp Pulse Resp BP Pulse Ox 37.0 C 91 16 117/79 95 07/28/20 16:47 07/28/20 16:47 07/28/20 16:47 07/28/20 16:47 07/28/20 16:47 Oxygen Delivery Method Room Air Weight: 84.4 kg Body Mass Index (BMI) 26.6 Intake and Output for Last 24 Hours 07/26/20 07/27/20 07/28/20 23:59 23:59 23:59 Intake Total 2140 / 2140 950 / 950 Output Total 600 / 600 250 / 250 Balance 1540 / 1540 700 / 700 Current Medications Acetaminophen (Acetaminophen 500 Mg Tablet) 500 mg PO Q4H PRN PRN PRN Reason: Temp > 100.4 F or pain 1-10 Al Hydroxide/Mg Hydroxide (Mag Hydrox/Al Hydrox/Simeth 30 Ml Udc) 30 ml PO Q6H PRN PRN PRN Reason: dyspesia Dicyclomine HCl (Dicyclomine 10 Mg Capsule) 20 mg PO Q6H PRN PRN PRN Reason: abdominal discomfort Folic Acid (Folic Acid 1 Mg Tablet) 1 mg PO DAILY@0800 [facility] Last Admin: 07/28/20 08:40 Dose: 1 mg Documented by: Gabapentin (Gabapentin 300 Mg Capsule) 300 mg PO Q8H PRN PRN PRN Reason: moderate to severe anxiety Last Admin: 07/28/20 18:36 Dose: 300 mg Documented by: Hydroxyzine Pamoate (Hydroxyzine Jackie 25 Mg Capsule) 50 mg PO Q4H PRN PRN PRN Reason: mild anxiety Last Admin: 07/27/20 20:22 Dose: 50 mg Documented by: Ibuprofen (Ibuprofen 600 Mg Tablet) 800 mg PO Q8H PRN PRN PRN Reason: PAIN 1-10 Loperamide HCl (Loperamide 2 Mg Capsule) 2 mg PO Q4H PRN PRN PRN Reason: LOOSE STOOLS Lorazepam (Lorazepam 1 Mg Tablet) 1 mg PO Q4H [facility]; Taper Stop: 07/31/20 16:59 Last Admin: 07/28/20 16:55 Dose: 1 mg Documented by: Nicotine (Nicotine 21 Mg Patch) 21 mg TD DAILY [facility] Last Admin: 07/28/20 08:39 Dose: 21 mg Documented by: Ondansetron HCl (Ondansetron 8 Mg Tablet) 8 mg PO Q8H PRN PRN PRN Reason: NAUSEA Senna (Senna Tablet) 2 tablet PO QHS PRN PRN Reason: Constipation Sodium Chloride (0.9% Saline Lock 10 Ml Syringe) 10 - 40 ml IV UD PRN PRN Reason: SALINE FLUSH Thiamine HCl ([facility] Hydrochloride 100 Mg Tablet) [facility] Last Admin: 07/28/20 08:40 Dose: 100 mg Documented by: Trazodone HCl (Trazodone 100 Mg Tablet) 100 mg PO QHS PRN PRN Reason: INSOMNIA Last Admin: 07/27/20 20:22 Dose: 100 mg Documented by: Home Medications: Medications to take at Discharge Lisinopril 20 mg PO DAILY 12/16/18 Atorvastatin Calcium [Lipitor] 40 mg PO QHS 03/19/20 Baclofen 20 mg PO BID 03/19/20 Primary Care Physician: Care Physician,No Primary [Primary Care Provider] - Disposition: Against Medical Advice Medical Necessity - Tobacco Use Smoking Status: Current every day smoker Tobacco Use: Cigarettes Meaningful Use Info Meaningful Use Diagnoses (Choose all that apply): None applicable Inpatient E&M: 28152 [facility] Hosp
--- NOTE | 2020-07-28 19:16 | NURSING ---
leaving now ambulating escorted by [place]vel[place] (police) and security.
== END 2020-07-28 19:19 | disposition left against medical advice (07) | DRG 770 ==
LOC: ED 19:04 → MS3 19:13
PROVIDERS: Admitting Provider Internal Medicine; Emergency Provider Emergency Medicine
DX: F10.239 Alcohol dependence with withdrawal, unspecified (principal); Y90.7 Blood alcohol level of 200-239 mg/100 ml; F17.210 Nicotine dependence, cigarettes, uncomplicated; F23 Brief psychotic disorder; I10 Essential (primary) hypertension; G11.4 Hereditary spastic paraplegia; I25.10 Atherosclerotic heart disease of native coronary artery without angina pectoris; Z95.5 Presence of coronary angioplasty implant and graft; Z79.899 Other long term (current) drug therapy
CPT/HCPCS: 36415; 80048; 80307; 82077; 85025; J3486

== ENCOUNTER 2020-08-04 08:49 | Inpatient (IN) | payer BC, MEDICAID, SELFPAY ==
[2020-08-04] VITALS (14 sets, daily range): BP systolic 117–148; BP diastolic 70–97; PULSE 102–129; RESP 15–22; TEMP 36.8–37.4; O2SAT 94–99; BMI 29.5; BMI 26.5
--- NOTE | 2020-08-04 09:15 | EKG12_ITS ---
Test Reason : Blood Pressure : / mmHG Vent. Rate : 107 BPM Atrial Rate : 107 BPM P-R Int : 150 ms QRS Dur : 098 ms QT Int : 360 ms P-R-T Axes : 031 061 043 degrees QTc Int : 480 ms Sinus tachycardia Low voltage QRS Confirmed by MIRANDA MILLS, ARIE ([id number]), editorial cartoonist JUAN CHEN ([id number]) on 08/08/2020 9:26:06 AM Referred By: TONO Confirmed By:ARIE JEAN MD
[2020-08-04 09:20] LABS: Bacteria 0 SEEN /hpf (None Seen); Mucous, Urine 0 SEEN /hpf (<or=2+); Red Blood Cells-Urine 0 SEEN /hpf (0-5); Squamous Epithelial Cells - UA 0 SEEN /hpf (0-5); White Blood Cells 0 SEEN /hpf (0-5)
[2020-08-04 09:21] LABS: Absolute Lymphocyte Count 0.94 X10^3/uL (0.83-4.51); Absolute Neutrophil Count 4.1 X10^3/uL (2.0-7.7); Basophil# 0.04 X10^3/uL; Basophil% 0.7 % (0-1); Eosinophil# 0.01 X10^3/uL; Eosinophils% 0.2 % (0-5); Hematocrit 44.9 % (40-54); Hemoglobin 15.7 g/dL (13.0-16.5); Lymphocyte # 0.94 X10^3/ul (4.0); Lymphocyte % 17.5 % (19-41); Mean Corpuscular Hgb 28.4 pg (27.0-32.0); Mean Corpuscular Volume 81.2 fL (80-94); Mean Platelet Vol. 9.7 fl (6.2-12.0); Monocyte% 5.6 % (0-10); NRBC Flagged by Analyzer 0 % (0-5); Neutrophil # 4.05 X10^3/uL (2.7-7.7); Neutrophil % 75.6 % (47-70); Platelet Count 211 K/mm3 (150-450); RBC Distribution Width CV 13.3 % (11.6-14.6); Red Blood Count 5.53 M/mm3 (4.6-6.2); White Blood Count 5.4 K/mm3 (4.4-11.0)
[2020-08-04 09:22] LABS: Color, Urine Yellow (Yellow); Glucose, Dipstick Normal (Normal); Ketone-Dipstick 5 mg/dl (Negative); Leukocyte Esterase-Dipstick Negative /ul (Negative); Nitrite-Dipstick Negative (Negative); Occult Blood-Urine Negative /ul (Negative); Protein-Dipstick Negative (Negative); Urine Bilirubin Dipstick Negative (Negative); Urine Clarity Clear (Clear); Urine Urobilinogen 1 mg/dl (Normal)
[2020-08-04 09:46] LABS: ALB/GLOB Ratio 0.8 RATIO (0.9-2.4); AST(SGOT) 1226 U/L (15-37); Alanine Aminotransfer ALT/SGPT 1266 U/L (16-61); Albumin, Serum 3.3 g/dL (3.2-5.0); Alkaline Phosphatase 130 U/L (45-117); Anion Gap 13 (5-15); BUN 14 mg/dL (7-18); BUN/Creat Ratio 19.6 RATIO (10-20); Calcium,Total 7.4 mg/dL (8.5-10.1); Chloride 99 mmol/L (98-107); Creatinine, Serum 0.72 mg/dL (0.70-1.30); EST Glomerular Filtration Rate 133 mL/min (>60); Est Glom Filt Rate - Afr Amer 160 mL/min (>60); Estimated Creatinine Clearance 147.86 ml/min; Globulin 4.1 g/dL (2.2-4.2); Glucose 101 mg/dL (74-106); Potassium 4.7 mmol/L (3.5-5.1); Protein, Total 7.4 g/dL (6.4-8.2); Sodium Level 130 mmol/L (136-145); Thyroid Stim Hormone (TSH) 1.78 uIU/mL (0.358-3.74)
[2020-08-04 09:46] LABS: Amphetamine Urine VISTA NEGATIVE (<1000 ng/mL); Barbiturate Urine VISTA POSITIVE (< 200 ng/mL); Benzodiazepine Urine VISTA NEGATIVE (< 200 ng/mL); Cocaine Urine VISTA NEGATIVE (< 300 ng/mL); Ecstacy Urine VISTA NEGATIVE (< 500 ng/mL); Methadone Urine VISTA NEGATIVE (< 300 ng/mL); PCP Urine VISTA NEGATIVE (< 25 ng/mL); THC Urine VISTA NEGATIVE (< 50 ng/mL); Vista UDS pH Range 5
--- NOTE | 2020-08-04 09:49 | ED.VISSUMM ---
- ER Visit Summary Date of Service: 08/04/20 Chief Complaint: Chest pain History of Present Illness: The patient is a 35 M who presents with chest pain that has been constant for the past 2 days. Patient states it is a heaviness over the left side of his chest. Patient states nothing makes it worse and nothing makes it better. Patient states he has had a history of an [facility] in the past. Patient also states that he is in desperate need of detox. He wants detox from alcohol. Patient states he drinks approximately half a gallon of bourbon per day. Patient states his last drink was yesterday. Patient states he was recently discharged from rehab and started drinking less than a week after being discharged from rehab. Patient states he does see a counselor at 180. Patient also states he has been having some suicidal thoughts. Patient states he is thought of several ways to harm himself. Patient states that if I was going to kill myself, I would have done it already. Physical Examination: Vital signs are stable. Patient is afebrile. Patient is in no acute distress. Oral mucosa is pink and moist. Neck is supple. Trachea is midline. There is no JVD noted. Heart was regular rate and rhythm. Lungs are clear and equal bilaterally. Abdomen is soft. Bowel sounds are normal. There is mild right inguinal tenderness. There is no rebound or guarding noted. I did not feel any hernia. Skin is warm dry. Cranial nerves II through XII are intact. There are no focal motor or sensory deficits noted. Extremities are intact. There is no calf tenderness or edema. Test Results: EKG was obtained. On my interpretation, it showed a normal sinus rhythm with a rate of 107. CT interval, QRS interval, and QTc intervals were all normal. [place] was normal. There are no acute ST or T wave changes. CBC and comprehensive metabolic profile were obtained. Sodium was slightly low at 130. CO2 was 18. Alk phos was slightly elevated at 130. ALT was 1266 and AST was 1226. Urinalysis does not show any evidence of urinary tract infection. Troponin was less than 0.015. TSH was normal. Urine tox screen was positive for barbiturates. Serum alcohol level was 224. Emergency Department Course and Treatment: Patient is resting comfortably on reevaluation. Patient was advised of his findings. Patient states he is no longer having any suicidal thoughts at this time. Patient is requesting admission for detox. Case was discussed with the hospitalist. He reported the patient signed out AGAINST MEDICAL ADVICE twice in the last 10 days. He recommended obtaining a psychiatric evaluation. Patient will be observed until he is legally sober. Patient was given Ativan and phenobarbital. The alcohol level was drawn and was 22. Crisis will evaluate the patient. Disposition: Pending per crisis evaluation Impression: 1. Alcohol withdrawal 2. Chest pain This note was generated with [employer] dictation software. It may contain incorrect words, spelling, and punctuation that were not noted in review of the chart prior to signing ED Disposition - Plan for ED Patient: Referrals: Care Physician,No Primary [Primary Care Provider] -
[2020-08-04] MEDS: LORazepam 1 MG Tablet PO (10:58)
[2020-08-04] MEDS: Phenobarbital 32.4 MG Tablet PO ×4 (13:28→22:39)
[2020-08-04] MEDS: Ondansetron ODT 4 MG Tablet PO (13:53)
[2020-08-04] MEDS: LORazepam 2 MG/ML Syringe 1 MG IV (14:21)
--- NOTE | 2020-08-04 18:03 | HP.PCM_ITS ---
History of Present Illness Date of Admission: 08/04/20 Chief Complaint: Alcohol withdrawal The patient is a 35 year old M with a PMH as below who presents to the hospital with recurrent alcohol withdrawal episodes. He is a frequent flyer to the ramp program here and states that he does not know why he continues to drink and he follows up with outpatient rehab occasionally but he does not know why he cannot stay sober. He is left the hospital multiple times AMA and this time he presented to the hospital while acutely intoxicated with a blood alcohol level over 200 and his last drink was this morning around 3 AM and he normally drinks about a gallon of vodka, or bourbon a day. The concern was possible him being a harm to himself or others so we had to wait until his blood alcohol level is below 100 she can be seen by crisis who felt that he did not meet inpatient criteria however by this point he has started to go into withdrawal and therefore had to be admitted to the hospital. Past Medical History Past Medical History (Chronic Problems): Chronic Problems (Last Reviewed 03/19/20 @ 19:[address] Ishan Couch DO) Alcohol withdrawal (Chronic) Alcohol withdrawal seizure (Chronic) Hereditary spastic paraplegia (Chronic) History of coronary artery disease (Chronic) Gastroenteritis (Chronic) Medical History: Medical History (Last Reviewed 03/19/20 @ 19:[address] Ishan Couch DO) CAD (coronary artery disease) I25.10 Hypertension I10 Allergies Penicillins [PCN] Adverse Reaction (Verified 08/04/20 08:57) Unknown Home Medications: Ambulatory Orders Medication Instructions Recorded Lisinopril 20 mg PO DAILY 12/16/18 Atorvastatin Calcium [Lipitor] 40 mg PO QHS 03/19/20 Baclofen 20 mg PO BID 03/19/20 Surgical History: appendectomy, - - Plate in left ankle. left hand. Psychiatric History: Bipolar Smoking Status: Current every day smoker Tobacco Use: Cigarettes Alcohol: Heavy Drugs: None - *Family History Maternal Family History: Family History (Last Reviewed 03/19/20 @ 19:[address] Ishan Couch DO) Mother Emphysema of lung Father Hereditary spastic paraplegia History Items: COPD Paternal Family History: Family History (Last Reviewed 03/19/20 @ 19:[address] Ishan Couch DO) Mother Emphysema of lung Father Hereditary spastic paraplegia History Items: - - hereditary spastic paraplegia Review of Systems Constitutional: Reports: Malaise. Denies: Chills, Fever, Weight Change HEENT: Denies: Head Aches, Sinus Congestion, Sinus Drainage Cardiovascular: Denies: Chest Pain, Palpitations Respiratory: Denies: Cough, Shortness of breath at rest, Sputum production Gastrointestinal: Denies: Abdominal Pain, Nausea, Vomiting Genitourinary: Denies: Dysuria Musculoskeletal: Denies: Joint Pain, Joint Tenderness Skin: Denies: Rash, Wounds Neurological: Reports: Tremor. Denies: Focal weakness, Numbness, Tingling Psychiatric: Reports: Anxiety. Denies: Depression Hematologic/ Lymphatic: Denies: Easy Bruising, Easy Bleeding VTE Information - Inpt Only VTE Present on Admission: No - Physical Exam Vitals/I&O's: Vital Signs Temp Pulse Resp BP Pulse Ox 98.5 F 114 H 16 144/84 H 95 08/04/20 18:02 08/04/20 18:02 08/04/20 18:02 08/04/20 18:02 08/04/20 18:02 Oxygen Delivery Method Room Air Weight: 205 lb 11.06 oz Body Mass Index (BMI) 29.5 General: Alert, Oriented x3, Cooperative, - - Tremulous and anxious HEENT: Atraumatic, PERRLA, EOMI, Normocephalic Oral: Dry Mucosa Neck: Supple, No JVD Lungs: Clear to auscultation, Normal air movement, No rhonchi, No wheeze, No rales Cardiovascular: Regular Rhythm, Normal S1, Normal S2, No murmurs, Tachycardic Abdomen: Soft, Non Tender, Non-Distended, No Hepato-splenomegaly Extremities: No edema, Capillary Refill Less than 3 Seconds Skin: No rashes, No breakdown Neurological: Neuro grossly intact, Sensory exam intact to light touch and pain Psych/Mental Status: Anxious, Restless Microbiology Past 72 Hours 08/04/20 09:20 Mucosa - Nose SARS-CoV-2 Antigen (Rapid) - Final Laboratory Results 08/04/20 08:40: WBC 5.4, RBC 5.53, Hgb 15.7, Hct 44.9, MCV 81.2, MCH 28.4, MCHC 35.0, RDW Std Deviation 39.0, RDW Coeff of Srinivasa 13.3, Plt Count 211, MPV 9.7, Immature Gran % (Auto) 0.400, Neut % (Auto) 75.6 H, Lymph % (Auto) 17.5 L, [place] % (Auto) 5.6, Eos % (Auto) 0.2, Baso % (Auto) 0.7, Absolute Neuts (auto) 4.1, Absolute Lymphs (auto) 0.94, Nucleated RBC % 0 08/04/20 08:40: Sodium 130 L, Potassium 4.7, Chloride 99, Carbon Dioxide 18.0 L, Anion Gap 13, BUN 14, Creatinine 0.72, Estim Creat Clear Calc 147.86, Est GFR (MDRD) Af Amer 160, Est GFR (MDRD) Non-Af 133, BUN/Creatinine Ratio 19.6, Glucose 101, Calcium 7.4 L, Total Bilirubin 0.50, AST 1226 H, ALT 1266 H, Alkaline Phosphatase 130 H, Total Protein 7.4, Albumin 3.3, Globulin 4.1, Albumin/Globulin Ratio 0.8 L, TSH 1.78 08/04/20 08:40: Troponin I < 0.015 08/04/20 09:00: Ethyl Alcohol 224.0 08/04/20 09:11: Urine Opiates Screen NEGATIVE, Urine Methadone Screen NEGATIVE, Ur Barbiturates Screen POSITIVE H, Ur Phencyclidine Scrn NEGATIVE, Ur Amphetamines Screen NEGATIVE, U Methamphetamin-MDMA NEGATIVE, U Benzodiazepines Scrn NEGATIVE, Urine Cocaine Screen NEGATIVE, U Cannabinoids Screen NEGATIVE, Ur Drug Screen Comment 08/04/20 09:11: Urine Color Yellow, Urine Clarity Clear, Urine pH 6.0, Ur Specific [place] 1.020, Urine Protein Negative, Urine Glucose (UA) Normal, Urine Ketones 5 H, Urine Occult Blood Negative, Urine Nitrite Negative, Urine Bilirubin Negative, Urine Urobilinogen 1 H, Ur Leukocyte Esterase Negative, Urine RBC 0 SEEN, Urine WBC 0 SEEN, Ur Squamous Epith Cells 0 SEEN, Urine Bacteria 0 SEEN, Urine Mucus 0 SEEN 08/04/20 14:54: Ethyl Alcohol 22.0 08/04/20 17:50: Lipase Pending Assessment/Plan All Active Problems (Last Reviewed 03/19/20 @ 19:[address] Ishan Couch, DO) Nicotine dependence (Acute) Alcohol dependence (Acute) Chest pain (Resolved) Acute kidney injury (Resolved) 1. Acute alcohol withdrawal/tobacco abuse/chronic back pain/elevated LFTs -This is his fourth admission in the last 5 months for alcohol withdrawal and during his last admission he was extremely belligerent and aggressive towards staff. I discussed with him that I would not tolerate this behavior. -Continue with the alcohol withdrawal protocol -We will set him up with 180 as an outpatient -We will provide him with a nicotine patch, discussed cessation -We will continue his home baclofen for his back pain discussed with him that he would not get any other medications for this issue -AST and ALT are elevated to over 1200, he denies taking any other medications. Bilirubin is normal, will monitor his LFTs and obtain a Tylenol level and a hepatitis panel 2. CAD/HTN -We will continue with his home lisinopril and Lipitor -Currently tachycardic secondary to withdrawal symptoms DVT: Ambulation Inpatient E&M: 14301 Init Hosp L3
[2020-08-04 18:17] LABS: Lipase 170 U/L (73-393)
[2020-08-04] MEDS: Gabapentin 300 MG Capsule PO (18:34)
[2020-08-04 18:58] LABS: Acetaminophen (Tylenol) Level < 2.0 ug/mL (10.0-30.0)
[2020-08-04] MEDS: Dicyclomine 10 MG Capsule 20 MG PO (19:45)
[2020-08-04] MEDS: Atorvastatin Calcium 40 MG Tablet PO (21:15)
[2020-08-04] MEDS: Baclofen 10 MG Tablet 20 MG PO (21:15)
[2020-08-04] MEDS: hydrOXYzine PAM 25 MG Capsule 50 MG PO (22:39)
[2020-08-04] MEDS: traZODone 100 MG Tablet PO (22:39)
[2020-08-04] MEDS: Ibuprofen 600 MG Tablet PO (22:40)
[2020-08-05 02:53] VITALS: BP 129/75; PULSE 79; RESP 18; TEMP 36.6; O2SAT 99
[2020-08-05] MEDS: Dicyclomine 10 MG Capsule 20 MG PO (02:57)
[2020-08-05] MEDS: Gabapentin 300 MG Capsule PO (02:57)
[2020-08-05] MEDS: Phenobarbital 32.4 MG Tablet PO ×6 (02:57→22:47)
[2020-08-05 06:31] VITALS: BP 120/80; PULSE 83; RESP 16; TEMP 36.4; O2SAT 98
[2020-08-05 07:12] LABS: ALB/GLOB Ratio 0.9 RATIO (0.9-2.4); AST(SGOT) 500 U/L (15-37); Alanine Aminotransfer ALT/SGPT 760 U/L (16-61); Albumin, Serum 3.1 g/dL (3.2-5.0); Alkaline Phosphatase 165 U/L (45-117); Anion Gap 6 (5-15); BUN 15 mg/dL (7-18); BUN/Creat Ratio 21.5 RATIO (10-20); Calcium,Total 8.1 mg/dL (8.5-10.1); Chloride 102 mmol/L (98-107); EST Glomerular Filtration Rate 137 mL/min (>60); Est Glom Filt Rate - Afr Amer 165 mL/min (>60); Estimated Creatinine Clearance 152.08 ml/min; Globulin 3.3 g/dL (2.2-4.2); Glucose 91 mg/dL (74-106); Potassium 3.7 mmol/L (3.5-5.1); Protein, Total 6.4 g/dL (6.4-8.2); Sodium Level 133 mmol/L (136-145)
[2020-08-05 08:07] VITALS: BP 121/85; PULSE 89; RESP 16; TEMP 36.6; O2SAT 97
[2020-08-05] MEDS: Folic Acid 1 MG Tablet PO (08:15)
[2020-08-05] MEDS: Baclofen 10 MG Tablet 20 MG PO ×2 (08:15→21:10)
[2020-08-05] MEDS: Thiamine Hydrochloride 100 MG Tablet PO (08:15)
[2020-08-05] MEDS: Lisinopril 20 MG Tablet PO (08:16)
--- NOTE | 2020-08-05 10:00 | PN_ITS ---
Subjective: Doing well today, feels better than he did yesterday. Vitals/I&O's: Vital Signs Temp Pulse Resp BP Pulse Ox 97.8 F 89 16 121/85 H 97 08/05/20 08:07 08/05/20 08:07 08/05/20 08:07 08/05/20 08:07 08/05/20 08:07 Oxygen Delivery Method Room Air Weight: 185 lb Body Mass Index (BMI) 26.5 Intake and Output for Last 24 Hours 08/03/20 08/04/20 08/05/20 23:59 23:59 23:59 Intake Total 650 / 650 Balance 650 / 650 General: Alert, Oriented x3, Cooperative, no acute distress HEENT: Atraumatic, PERRLA, EOMI, Normocephalic Oral: Moist mucosa Neck: Supple, No JVD Lungs: Clear to auscultation, Normal air movement, No rhonchi, No wheeze, No rales Cardiovascular: Regular rate and rhythm, Normal S1, Normal S2, No murmurs Abdomen: Soft, Non Tender, Non-Distended, No Hepato-splenomegaly Extremities: No edema, Capillary Refill Less than 3 Seconds Skin: No rashes, No breakdown Neurological: Neuro grossly intact, Sensory exam intact to light touch and pain Psych/Mental Status: Normal affect, appropriate Microbiology Past 72 Hours 08/04/20 09:20 Mucosa - Nose SARS-CoV-2 Antigen (Rapid) - Final Laboratory Results 08/04/20 08:40: Troponin I < 0.015 08/04/20 09:00: Hepatitis A IgM Ab Pending, Hep Bs Antigen Pending, Hep B Core IgM Ab Pending, Hepatitis C Ab (EIA) Pending 08/04/20 14:54: Ethyl Alcohol 22.0 08/04/20 14:54: Acetaminophen < 2.0 L 08/04/20 17:50: Lipase 170 08/05/20 06:06: Sodium 133 L, Potassium 3.7, Chloride 102, Carbon Dioxide 25.0, Anion Gap 6, BUN 15, Creatinine 0.70, Estim Creat Clear Calc 152.08, Est GFR (MDRD) Af Amer 165, Est GFR (MDRD) Non-Af 137, BUN/Creatinine Ratio 21.5 H, Glucose 91, Calcium 8.1 L, Total Bilirubin 1.40 H, AST 500 H, ALT 760 H, Alkaline Phosphatase 165 H, Total Protein 6.4, Albumin 3.1 L, Globulin 3.3, Albumin/Globulin Ratio 0.9 Current Medications Acetaminophen (Acetaminophen 500 Mg Tablet) 650 mg PO Q4H PRN PRN PRN Reason: Temp > 100.4 F, pain 1-10 Al Hydroxide/Mg Hydroxide (Mag Hydrox/Al Hydrox/Simeth 30 Ml Udc) 30 ml PO Q6H PRN PRN PRN Reason: dyspesia Atorvastatin Calcium (Atorvastatin Calcium 40 Mg Tablet) 40 mg PO QHS [facility] Last Admin: 08/04/20 21:15 Dose: 40 mg Documented by: Baclofen (Baclofen 10 Mg Tablet) 20 mg PO BID [facility] Last Admin: 08/05/20 08:15 Dose: 20 mg Documented by: Bisacodyl (Bisacodyl 10 Mg Suppository) 10 mg RC DAILY PRN PRN Reason: Constipation Dicyclomine HCl (Dicyclomine 10 Mg Capsule) 20 mg PO Q6H PRN PRN PRN Reason: abdominal discomfort Last Admin: 08/05/20 02:57 Dose: 20 mg Documented by: Folic Acid (Folic Acid 1 Mg Tablet) 1 mg PO DAILY@0800 [facility] Last Admin: 08/05/20 08:15 Dose: 1 mg Documented by: Gabapentin (Gabapentin 300 Mg Capsule) 300 mg PO Q8H PRN PRN PRN Reason: moderate to severe anxiety Last Admin: 08/05/20 02:57 Dose: 300 mg Documented by: Hydroxyzine Pamoate (Hydroxyzine Jackie 25 Mg Capsule) 50 mg PO Q4H PRN PRN PRN Reason: mild anxiety Last Admin: 08/04/20 22:39 Dose: 50 mg Documented by: Sodium Chloride () 250 mls @ 15 mls/hr IV .[id number] PRN PRN Reason: Saline Flush Sodium Chloride () 250 mls @ 15 mls/hr IV .[id number] PRN PRN Reason: Additional IVPB Infusion Ibuprofen (Ibuprofen 600 Mg Tablet) 600 mg PO Q8H PRN PRN PRN Reason: PAIN Last Admin: 08/04/20 22:40 Dose: 600 mg Documented by: Lisinopril (Lisinopril 20 Mg Tablet) 20 mg PO DAILY [facility] Last Admin: 08/05/20 08:16 Dose: 20 mg Documented by: Loperamide HCl (Loperamide 2 Mg Capsule) 2 mg PO Q4H PRN PRN PRN Reason: LOOSE STOOLS Nicotine (Nicotine 21 Mg Patch) 21 mg TD DAILY [facility] Last Admin: 08/05/20 08:16 Dose: 21 mg Documented by: Ondansetron HCl (Ondansetron 8 Mg Tablet) 8 mg PO Q8H PRN PRN PRN Reason: NAUSEA Phenobarbital (Phenobarbital 32.4 Mg Tablet) 97.2 mg PO Q4H [facility]; Taper Stop: 08/09/20 02:59 Last Admin: 08/05/20 06:33 Dose: 97.2 mg Documented by: Senna (Senna Tablet) 2 tablet PO QHS PRN PRN PRN Reason: Constipation Sodium Chloride (0.9% Saline Lock 10 Ml Syringe) 10 - 40 ml IV UD PRN PRN Reason: SALINE FLUSH Thiamine HCl ([facility]iamine Hydrochloride 100 Mg Tablet) [facility] Last Admin: 08/05/20 08:15 Dose: 100 mg Documented by: Trazodone HCl (Trazodone 100 Mg Tablet) 100 mg PO QHS PRN PRN Reason: INSOMNIA Last Admin: 08/04/20 22:39 Dose: 100 mg Documented by: STROKE Vital Signs/Narrative: Vital Signs Temp Pulse Resp BP Pulse Ox 08/05/20 08:07 97.8 F 89 16 121/85 H 97 08/05/20 06:31 97.5 F L 83 16 120/80 98 Medical Necessity - Tobacco Use Smoking Status: Current every day smoker Tobacco Use: Cigarettes Assessment/Plan All Active Problems (Last Reviewed 03/19/20 @ 19:[address] Ishan Couch, DO) Nicotine dependence (Acute) Alcohol dependence (Acute) Chest pain (Resolved) Acute kidney injury (Resolved) 1. Acute alcohol withdrawal/tobacco abuse/chronic back pain/elevated LFTs -This is his fourth admission in the last 5 months for alcohol withdrawal and during his last admission he was extremely belligerent and aggressive towards staff. I discussed with him that I would not tolerate this behavior. -Continue with the alcohol withdrawal protocol -We will set him up with 180 as an outpatient -We will provide him with a nicotine patch, discussed cessation -We will continue his home baclofen for his back pain discussed with him that he would not get any other medications for this issue -AST and ALT are elevated to over 1200 on admission, down to about 500 but his bilirubin did increase a little bit to 1.4 acid is alk phos. We will continue to monitor, acetaminophen level was normal and hepatitis panel is pending 2. CAD/HTN -We will continue with his home lisinopril and Lipitor -Tachycardia has resolved with improvement in his withdrawal symptoms DVT: Ambulation Inpatient E&M: 30690 Subs Hosp L2
--- NOTE | 2020-08-05 11:23 | ADDICTION ---
This law writer met with PT to complete ASAM, MSE and AUDIT assessments and to plan for d/c. All assessments completed, faxed to [facility] and placed in PT's chart. PT plans to f[facility]u with [facility] for [facility]counsel[facility] and with [facility] for psychiatric counseling.
[2020-08-05 14:22] VITALS: BP 134/96; PULSE 94; RESP 16; TEMP 36.7; O2SAT 98
[2020-08-05 18:14] VITALS: BP 149/97; PULSE 103; RESP 16; TEMP 36.7; O2SAT 97
[2020-08-05] MEDS: 0.9% Saline Lock 10 ML Syringe IV (20:02)
[2020-08-05] MEDS: Atorvastatin Calcium 40 MG Tablet PO (21:10)
[2020-08-05] MEDS: Ibuprofen 600 MG Tablet PO (21:16)
[2020-08-05 22:39] VITALS: BP 132/89; PULSE 87; RESP 18; TEMP 37.1; O2SAT 96
[2020-08-05] MEDS: hydrOXYzine PAM 25 MG Capsule 50 MG PO (22:46)
[2020-08-06 03:12] VITALS: BP 122/77; PULSE 76; RESP 18; TEMP 36.5; O2SAT 98
[2020-08-06] MEDS: Phenobarbital 32.4 MG Tablet PO ×6 (03:17→22:11)
[2020-08-06] MEDS: Gabapentin 300 MG Capsule PO ×2 (03:21→20:05)
[2020-08-06 06:08] LABS: HEPATITIS B SURFACE AG Negative (Negative); Hepatitis A IgM Antibody Negative (Negative); Hepatitis B Core AB IgM Negative (Negative)
[2020-08-06 07:01] LABS: ALB/GLOB Ratio 0.7 RATIO (0.9-2.4); AST(SGOT) 180 U/L (15-37); Alanine Aminotransfer ALT/SGPT 458 U/L (16-61); Albumin, Serum 2.8 g/dL (3.2-5.0); Alkaline Phosphatase 178 U/L (45-117); Anion Gap 4 (5-15); BUN 14 mg/dL (7-18); BUN/Creat Ratio 20.2 RATIO (10-20); Chloride 105 mmol/L (98-107); Creatinine, Serum 0.69 mg/dL (0.70-1.30); EST Glomerular Filtration Rate 137 mL/min (>60); Est Glom Filt Rate - Afr Amer 166 mL/min (>60); Estimated Creatinine Clearance 154.29 ml/min; Globulin 3.8 g/dL (2.2-4.2); Glucose 93 mg/dL (74-106); Potassium 3.5 mmol/L (3.5-5.1); Protein, Total 6.6 g/dL (6.4-8.2); Sodium Level 134 mmol/L (136-145)
[2020-08-06 08:48] LABS: Hep C Antibodies <0.1 s/co ratio (0.0-0.9)
[2020-08-06 09:01] VITALS: BP 123/93; PULSE 77; RESP 18; TEMP 36.6; O2SAT 97
[2020-08-06] MEDS: Ibuprofen 600 MG Tablet PO ×2 (09:07→18:52)
[2020-08-06] MEDS: Folic Acid 1 MG Tablet PO (09:08)
[2020-08-06] MEDS: Thiamine Hydrochloride 100 MG Tablet PO (09:08)
[2020-08-06] MEDS: Lisinopril 20 MG Tablet PO (09:09)
[2020-08-06] MEDS: Baclofen 10 MG Tablet 20 MG PO ×2 (09:09→22:13)
[2020-08-06] MEDS: hydrOXYzine PAM 25 MG Capsule 50 MG PO ×2 (09:13→20:05)
--- NOTE | 2020-08-06 09:57 | PN_ITS ---
Subjective: Last night was a bit of a rough night for him. He is complaining of little bit of a toothache today though he said that this is chronic and intermittent but he cannot find a dentist because of his insurance. Vitals/I&O's: Vital Signs Temp Pulse Resp BP Pulse Ox 97.9 F 77 18 123/93 H 97 08/06/20 09:01 08/06/20 09:01 08/06/20 09:01 08/06/20 09:01 08/06/20 09:01 Oxygen Delivery Method Room Air Weight: 185 lb Body Mass Index (BMI) 26.5 Intake and Output for Last 24 Hours 08/04/20 08/05/20 08/06/20 23:59 23:59 23:59 Intake Total 950 / 950 300 / 300 Output Total 400 / 400 Balance 550 / 550 300 / 300 General: Alert, Oriented x3, Cooperative, no acute distress HEENT: Atraumatic, PERRLA, EOMI, Normocephalic Oral: Moist mucosa Neck: Supple, No JVD Lungs: Clear to auscultation, Normal air movement, No rhonchi, No wheeze, No rales Cardiovascular: Regular rate and rhythm, Normal S1, Normal S2, No murmurs Abdomen: Soft, Non Tender, Non-Distended, No Hepato-splenomegaly Extremities: No edema, Capillary Refill Less than 3 Seconds Skin: No rashes, No breakdown Neurological: Neuro grossly intact, Sensory exam intact to light touch and pain Psych/Mental Status: Normal affect, appropriate Microbiology Past 72 Hours 08/04/20 09:20 Mucosa - Nose SARS-CoV-2 Antigen (Rapid) - Final Laboratory Results 08/04/20 09:00: Hepatitis A IgM Ab Negative, Hep Bs Antigen Negative, Hep B Core IgM Ab Negative, Hepatitis C Ab (EIA) <0.1 08/06/20 05:55: Sodium 134 L, Potassium 3.5, Chloride 105, Carbon Dioxide 25.0, Anion Gap 4 L, BUN 14, Creatinine 0.69 L, Estim Creat Clear Calc 154.29, Est GFR (MDRD) Af Amer 166, Est GFR (MDRD) Non-Af 137, BUN/Creatinine Ratio 20.2 H, Glucose 93, Calcium 8.0 L, Total Bilirubin 0.60, AST 180 H, ALT 458 H, Alkaline Phosphatase 178 H, Total Protein 6.6, Albumin 2.8 L, Globulin 3.8, Albumin/Globulin Ratio 0.7 L Current Medications Acetaminophen (Acetaminophen 500 Mg Tablet) 650 mg PO Q4H PRN PRN PRN Reason: Temp > 100.4 F, pain 1-10 Al Hydroxide/Mg Hydroxide (Mag Hydrox/Al Hydrox/Simeth 30 Ml Udc) 30 ml PO Q6H PRN PRN PRN Reason: dyspesia Atorvastatin Calcium (Atorvastatin Calcium 40 Mg Tablet) 40 mg PO QHS [facility] Last Admin: 08/05/20 21:10 Dose: 40 mg Documented by: Baclofen (Baclofen 10 Mg Tablet) 20 mg PO BID [facility] Last Admin: 08/06/20 09:09 Dose: 20 mg Documented by: Bisacodyl (Bisacodyl 10 Mg Suppository) 10 mg RC DAILY PRN PRN Reason: Constipation Dicyclomine HCl (Dicyclomine 10 Mg Capsule) 20 mg PO Q6H PRN PRN PRN Reason: abdominal discomfort Last Admin: 08/05/20 02:57 Dose: 20 mg Documented by: Folic Acid (Folic Acid 1 Mg Tablet) 1 mg PO DAILY@0800 [facility] Last Admin: 08/06/20 09:08 Dose: 1 mg Documented by: Gabapentin (Gabapentin 300 Mg Capsule) 300 mg PO Q8H PRN PRN PRN Reason: moderate to severe anxiety Last Admin: 08/06/20 03:21 Dose: 300 mg Documented by: Hydroxyzine Pamoate (Hydroxyzine Jackie 25 Mg Capsule) 50 mg PO Q4H PRN PRN PRN Reason: mild anxiety Last Admin: 08/06/20 09:13 Dose: 50 mg Documented by: Sodium Chloride () 250 mls @ 15 mls/hr IV .[id number] PRN PRN Reason: Saline Flush Sodium Chloride () 250 mls @ 15 mls/hr IV .[id number] PRN PRN Reason: Additional IVPB Infusion Ibuprofen (Ibuprofen 600 Mg Tablet) 600 mg PO Q8H PRN PRN PRN Reason: PAIN Last Admin: 08/06/20 09:07 Dose: 600 mg Documented by: Lisinopril (Lisinopril 20 Mg Tablet) 20 mg PO DAILY [facility] Last Admin: 08/06/20 09:09 Dose: 20 mg Documented by: Loperamide HCl (Loperamide 2 Mg Capsule) 2 mg PO Q4H PRN PRN PRN Reason: LOOSE STOOLS Nicotine (Nicotine 21 Mg Patch) 21 mg TD DAILY [facility] Last Admin: 08/06/20 09:06 Dose: 21 mg Documented by: Ondansetron HCl (Ondansetron 8 Mg Tablet) 8 mg PO Q8H PRN PRN PRN Reason: NAUSEA Phenobarbital (Phenobarbital 32.4 Mg Tablet) 64.8 mg PO Q4H [facility]; Taper Stop: 08/09/20 02:59 Last Admin: 08/06/20 06:37 Dose: 64.8 mg Documented by: Senna (Senna Tablet) 2 tablet PO QHS PRN PRN PRN Reason: Constipation Sodium Chloride (0.9% Saline Lock 10 Ml Syringe) 10 - 40 ml IV UD PRN PRN Reason: SALINE FLUSH Last Admin: 08/05/20 20:02 Dose: 10 ml Documented by: Thiamine HCl (Thiamine Hydrochloride 100 Mg Tablet) [facility] Last Admin: 08/06/20 09:08 Dose: 100 mg Documented by: Trazodone HCl (Trazodone 100 Mg Tablet) 100 mg PO QHS PRN PRN Reason: INSOMNIA Last Admin: 08/04/20 22:39 Dose: 100 mg Documented by: STROKE Vital Signs/Narrative: Vital Signs Temp Pulse Resp BP Pulse Ox 08/06/20 09:01 97.9 F 77 18 123/93 H 97 Medical Necessity - Tobacco Use Smoking Status: Current every day smoker Tobacco Use: Cigarettes Assessment/Plan All Active Problems (Last Reviewed 03/19/20 @ 19:[address] Ishan Couch, DO) Nicotine dependence (Acute) Alcohol dependence (Acute) Chest pain (Resolved) Acute kidney injury (Resolved) 1. Acute alcohol withdrawal/tobacco abuse/chronic back pain/elevated LFTs -This is his fourth admission in the last 5 months for alcohol withdrawal and during his last admission he was extremely belligerent and aggressive towards staff. I discussed with him that I would not tolerate this behavior. -Continue with the alcohol withdrawal protocol -We will set him up with 180 as an outpatient -We will provide him with a nicotine patch, discussed cessation -We will continue his home baclofen for his back pain discussed with him that he would not get any other medications for this issue -AST and ALT are elevated to over 1200 on admission, and is trending down. Tylenol and hepatitis panel are negative therefore his LFT elevation is likely related to his alcohol abuse 2. CAD/HTN -We will continue with his home lisinopril and Lipitor -Tachycardia has resolved with improvement in his withdrawal symptoms DVT: Ambulation Inpatient E&M: 53586 Subs Hosp L2
[2020-08-06] MEDS: Acetaminophen 325 MG Tablet 650 MG PO (14:36)
[2020-08-06 15:00] VITALS: BP 132/77; PULSE 92; RESP 18; TEMP 36.7; O2SAT 98
[2020-08-06 16:00] VITALS: RESP 18
--- NOTE | 2020-08-06 20:15 | EKG12_ITS ---
Test Reason : CHEST PAIN Blood Pressure : / mmHG Vent. Rate : 078 BPM Atrial Rate : 078 BPM P-R Int : 164 ms QRS Dur : 104 ms QT Int : 392 ms P-R-T Axes : 002 050 032 degrees QTc Int : 446 ms Normal sinus rhythm Normal ECG Confirmed by MIRANDA MILLS, ARIE ([id number]), book or script editor JUAN CHEN ([id number]) on 08/08/2020 9:55:28 AM Referred By: YAN Confirmed By:ARIE JEAN MD
[2020-08-06 20:25] VITALS: BP 125/77; PULSE 83; RESP 16; TEMP 36.8
[2020-08-06] MEDS: Atorvastatin Calcium 40 MG Tablet PO (22:13)
[2020-08-07] MEDS: Phenobarbital 32.4 MG Tablet PO ×4 (02:34→21:54)
[2020-08-07] MEDS: hydrOXYzine PAM 25 MG Capsule 50 MG PO ×3 (02:34→21:54)
[2020-08-07] MEDS: Ibuprofen 600 MG Tablet PO (02:35)
[2020-08-07 02:37] VITALS: BP 147/105; PULSE 91; RESP 16; TEMP 36.3; O2SAT 99
[2020-08-07] MEDS: Gabapentin 300 MG Capsule PO ×2 (09:17→21:54)
[2020-08-07] MEDS: Thiamine Hydrochloride 100 MG Tablet PO (09:17)
[2020-08-07] MEDS: Lisinopril 20 MG Tablet PO (09:17)
[2020-08-07] MEDS: Folic Acid 1 MG Tablet PO (09:17)
[2020-08-07] MEDS: Baclofen 10 MG Tablet 20 MG PO ×2 (09:17→21:54)
[2020-08-07 09:26] VITALS: BP 121/68; PULSE 81; RESP 16; TEMP 36.8; O2SAT 98
--- NOTE | 2020-08-07 10:42 | PCM.PN.HOSP ---
Subjective: Had another rough night. At that time his CIWA scores were 18. During the day he does okay. He does acknowledge episodes of depression as well as what sounds like ludivina where he says that he will have a lot of energy for about 2 to 3 days and feel he need a lot of bone and then he starts going down into depressive cycle. I did discuss with him the option of starting either an antidepressant or even Lamictal but he would like to be seen by a psychiatrist and/or psychologist first to determine what is best on discharge. Vitals/I&O's: Vital Signs Temp Pulse Resp BP Pulse Ox 98.3 F 81 16 121/68 H 98 08/07/20 09:26 08/07/20 09:26 08/07/20 09:26 08/07/20 09:26 08/07/20 09:26 Oxygen Delivery Method Room Air Weight: 185 lb Body Mass Index (BMI) 26.5 Intake and Output for Last 24 Hours 08/05/20 08/06/20 08/07/20 23:59 23:59 23:59 Intake Total 950 / 950 1100 / 1100 Output Total 400 / 400 400 / 400 Balance 550 / 550 1100 / 700 -400 / -400 General: Alert, Oriented x3, Cooperative, no acute distress HEENT: Atraumatic, PERRLA, EOMI, Normocephalic Oral: Moist mucosa Neck: Supple, No JVD Lungs: Clear to auscultation, Normal air movement, No rhonchi, No wheeze, No rales Cardiovascular: Regular rate and rhythm, Normal S1, Normal S2, No murmurs Abdomen: Soft, Non Tender, Non-Distended, No Hepato-splenomegaly Extremities: No edema, Capillary Refill Less than 3 Seconds Skin: No rashes, No breakdown Neurological: Neuro grossly intact, Sensory exam intact to light touch and pain Psych/Mental Status: Normal affect, appropriate Microbiology Past 72 Hours 08/04/20 09:20 Mucosa - Nose SARS-CoV-2 Antigen (Rapid) - Final Current Medications Acetaminophen (Acetaminophen 325 Mg Tablet) 650 mg PO Q4H PRN PRN PRN Reason: Temp > 100.4 F, pain 1-10 Last Admin: 08/06/20 14:36 Dose: 650 mg Documented by: Al Hydroxide/Mg Hydroxide (Mag Hydrox/Al Hydrox/Simeth 30 Ml Udc) 30 ml PO Q6H PRN PRN PRN Reason: dyspesia Atorvastatin Calcium (Atorvastatin Calcium 40 Mg Tablet) 40 mg PO QHS [facility] Last Admin: 08/06/20 22:13 Dose: 40 mg Documented by: Baclofen (Baclofen 10 Mg Tablet) 20 mg PO BID [facility] Last Admin: 08/07/20 09:17 Dose: 20 mg Documented by: Bisacodyl (Bisacodyl 10 Mg Suppository) 10 mg RC DAILY PRN PRN Reason: Constipation Dicyclomine HCl (Dicyclomine 10 Mg Capsule) 20 mg PO Q6H PRN PRN PRN Reason: abdominal discomfort Last Admin: 08/05/20 02:57 Dose: 20 mg Documented by: Folic Acid (Folic Acid 1 Mg Tablet) 1 mg PO DAILY@0800 [facility] Last Admin: 08/07/20 09:17 Dose: 1 mg Documented by: Gabapentin (Gabapentin 300 Mg Capsule) 300 mg PO Q8H PRN PRN PRN Reason: moderate to severe anxiety Last Admin: 08/07/20 09:17 Dose: 300 mg Documented by: Hydroxyzine Pamoate (Hydroxyzine Jackie 25 Mg Capsule) 50 mg PO Q4H PRN PRN PRN Reason: mild anxiety Last Admin: 08/07/20 02:34 Dose: 50 mg Documented by: Sodium Chloride () 250 mls @ 15 mls/hr IV .[id number] PRN PRN Reason: Saline Flush Sodium Chloride () 250 mls @ 15 mls/hr IV .[id number] PRN PRN Reason: Additional IVPB Infusion Ibuprofen (Ibuprofen 600 Mg Tablet) 600 mg PO Q8H PRN PRN PRN Reason: PAIN Last Admin: 08/07/20 02:35 Dose: 600 mg Documented by: Lidocaine HCl (Lidocaine 2% Viscous 15 Ml Udc) 5 ml PO Q3H PRN PRN Reason: PAIN 1-10 Last Admin: 08/06/20 11:01 Dose: 5 ml Documented by: Lisinopril (Lisinopril 20 Mg Tablet) 20 mg PO DAILY [facility] Last Admin: 08/07/20 09:17 Dose: 20 mg Documented by: Loperamide HCl (Loperamide 2 Mg Capsule) 2 mg PO Q4H PRN PRN PRN Reason: LOOSE STOOLS Nicotine (Nicotine 21 Mg Patch) 21 mg TD DAILY [facility] Last Admin: 08/07/20 09:17 Dose: 21 mg Documented by: Ondansetron HCl (Ondansetron 8 Mg Tablet) 8 mg PO Q8H PRN PRN PRN Reason: NAUSEA Phenobarbital (Phenobarbital 32.4 Mg Tablet) 64.8 mg PO Q6H [facility]; Taper Stop: 08/09/20 02:59 Last Admin: 08/07/20 09:17 Dose: 64.8 mg Documented by: Senna (Senna Tablet) 2 tablet PO QHS PRN PRN PRN Reason: Constipation Sodium Chloride (0.9% Saline Lock 10 Ml Syringe) 10 - 40 ml IV UD PRN PRN Reason: SALINE FLUSH Last Admin: 08/05/20 20:02 Dose: 10 ml Documented by: Thiamine HCl (Thiamine Hydrochloride 100 Mg Tablet) 100 mg PO DAILYCM [facility] Last Admin: 08/07/20 09:17 Dose: 100 mg Documented by: Trazodone HCl (Trazodone 100 Mg Tablet) 100 mg PO QHS PRN PRN Reason: INSOMNIA Last Admin: 08/04/20 22:39 Dose: 100 mg Documented by: STROKE Vital Signs/Narrative: Vital Signs Temp Pulse Resp BP Pulse Ox 08/07/20 09:26 98.3 F 81 16 121/68 H 98 Medical Necessity - Tobacco Use Smoking Status: Current every day smoker Tobacco Use: Cigarettes Assessment/Plan All Active Problems (Last Reviewed 03/19/20 @ 19:[address] Ishan Couch, DO) Nicotine dependence (Acute) Alcohol dependence (Acute) Chest pain (Resolved) Acute kidney injury (Resolved) 1. Acute alcohol withdrawal/tobacco abuse/chronic back pain/elevated LFTs -This is his fourth admission in the last 5 months for alcohol withdrawal and during his last admission he was extremely belligerent and aggressive towards staff. I discussed with him that I would not tolerate this behavior. -Continue with the alcohol withdrawal protocol -We will set him up with 180 as an outpatient -We will provide him with a nicotine patch, discussed cessation -We will continue his home baclofen for his back pain discussed with him that he would not get any other medications for this issue -AST and ALT are elevated to over 1200 on admission, and is trending down. Tylenol and hepatitis panel are negative therefore his LFT elevation is likely related to his alcohol abuse 2. CAD/HTN -We will continue with his home lisinopril and Lipitor -Tachycardia has resolved with improvement in his withdrawal symptoms DVT: Ambulation Inpatient E&M: 36172 Subs Hosp L2
--- NOTE | 2020-08-07 15:23 | CHAPLAIN ---
Type of Pastoral Visit _x__ Initial Visit ___ Follow-up Visit ___ On-call Visit ___ General Patient Visit ___ Spiritual Assessment ___ Family Conference ___ Bereavement ___ Rapid Response ___ Code Blue ___ Other (describe below) Pastoral Care Referral From _x__ Patient ___ Family ___ Nurse ___ Physician ___ Mechanical Equipment Test Engineer ___ Planograph Operator ___ Other (describe below) Sacrament/Intervention _x__ Active listening ___ Anointing ___ Denominational ___ Bereavement ___ Communion _x__ Lizzie exploration ___ _x__ Life review _x__ Prayer ___ Reconciliation ___ Sacrament of Sick _x__ Supportive presence ___ Wedding ___ Other (describe below) Pastoral Comments patient introduced to emotional and spiritual support availability and was welcoming; pt immediately states that he would invite prayer and then discusses his life struggle with alcohol and attempts to be sober; pt describes his struggle as a spiritual cantu between a Higher Power and the Devil; pt is very talkative and open about his life and states a year ago I would have told you I'm fine, but it's different now; lots of time given for patient to unpack his thoughts and fears; pt wants psychiatric intervention because something is wrong in my head; pt has already been referred to according to his charts; pt says he has gone through many detox experiences, rehab, and AA; pt states he had good support in previous years when a [facility] peer called him daily for a Maximino Calling session which I really miss;
[2020-08-07 15:28] VITALS: BP 128/90; PULSE 100; RESP 16; TEMP 36.8; O2SAT 99
[2020-08-07 21:00] VITALS: BP 129/80; PULSE 77; RESP 16; TEMP 36.9
[2020-08-07] MEDS: Atorvastatin Calcium 40 MG Tablet PO (21:53)
[2020-08-07] MEDS: traZODone 100 MG Tablet PO (21:54)
[2020-08-08] MEDS: Phenobarbital 32.4 MG Tablet PO ×2 (02:57→09:14)
[2020-08-08] MEDS: hydrOXYzine PAM 25 MG Capsule 50 MG PO (02:57)
[2020-08-08 03:00] VITALS: BP 145/96; PULSE 91; RESP 16; TEMP 36.5; O2SAT 98
[2020-08-08 09:12] VITALS: BP 125/83; PULSE 85; RESP 16; TEMP 36.6; O2SAT 96
[2020-08-08] MEDS: Folic Acid 1 MG Tablet PO (09:14)
[2020-08-08] MEDS: Baclofen 10 MG Tablet 20 MG PO (09:14)
[2020-08-08] MEDS: Thiamine Hydrochloride 100 MG Tablet PO (09:14)
[2020-08-08] MEDS: Lisinopril 20 MG Tablet PO (09:14)
--- NOTE | 2020-08-08 10:04 | DCINST_ITS ---
You will use the following diet at home:: Regular Your food should be the consistency of: Regular Your liquids should be the consistency of: Regular/Thin Discharge Activity: Return to Normal Activity Call your doctor if you observe: Fever of 101 or Higher, Shortness of breath, Dizziness, Fainting spells, Swelling in the ankles, Chest pain, Increased palpitations (irregular heartbeat) Allergies/Adverse Reactions: Allergies Penicillins [PCN] Adverse Reaction (Verified 08/04/20 08:57) Unknown Medications to take at Discharge Lisinopril 20 mg PO DAILY 12/16/18 Atorvastatin Calcium [Lipitor] 40 mg PO QHS 03/19/20 Baclofen 20 mg PO BID 03/19/20 Primary Care Physician: Care Physician,No Primary [Primary Care Provider] - Test Results: Test results from this visit will be discussed in further detail at your follow- up appointment, if applicable. Please Follow Up With: 180 When: 08/12/2020 Please Follow Up With: Psychiatry When: 08/13/2020
--- NOTE | 2020-08-08 10:08 | PCM.DC.SUM ---
Discharge Date and Diagnosis Date of Admission: 08/04/20 Date of Discharge: 08/08/20 - Secondary Discharge Diagnosis Chronic Problems: Chronic Problems (Last Reviewed 03/19/20 @ 19:[address] Ishan Couch, DO) Alcohol withdrawal (Chronic) Alcohol withdrawal seizure (Chronic) Hereditary spastic paraplegia (Chronic) History of coronary artery disease (Chronic) Gastroenteritis (Chronic) Hospital Course and Treatment Operations: None Procedures: None Summary of Care Provided: Per HPI: The patient is a 35 year old M with a PMH as below who presents to the hospital with recurrent alcohol withdrawal episodes. He is a frequent flyer to the ramp program here and states that he does not know why he continues to drink and he follows up with outpatient rehab occasionally but he does not know why he cannot stay sober. He is left the hospital multiple times AMA and this time he presented to the hospital while acutely intoxicated with a blood alcohol level over 200 and his last drink was this morning around 3 AM and he normally drinks about a gallon of vodka, or bourbon a day. The concern was possible him being a harm to himself or others so we had to wait until his blood alcohol level is below 100 she can be seen by crisis who felt that he did not meet inpatient criteria however by this point he has started to go into withdrawal and therefore had to be admitted to the hospital. Hospital Course: 1. Call withdrawal/tobacco abuse/chronic back pain/elevated [id number]-old male who has had several admissions for alcohol withdrawal over the last several months presents once again with alcohol withdrawal. He had left AMA earlier in the week but this time felt that he really needed to get clean. He is planning on seeing [facility] on discharge on Wednesday as well as psychiatry on Wednesday. He stayed an extra day because he was having a couple of rough nights with withdrawal however he feels much better today and feels like he will be okay to go home. I discussed with him plan for discharge and he expressed understanding of the risks and benefits of going home and wants to go home. I did discuss with him the possibility of starting him on an antidepressant or even a mood stabilizer as it does appear that he has some mild manic phases and he said that he would rather just wait for psychiatry to see him. I also discussed with him about tobacco cessation and that he will obtain the patch on discharge. Liver functions also are trending down this was likely secondary to his acute alcohol, I do recommend that he follow-up with PCP when he finds one. 2. Coronary artery disease, hypertension or chronic medical conditions which complicate his care. His home medications were continued where appropriate - Physical Exam Vitals/I&O's: Vital Signs Temp Pulse Resp BP Pulse Ox 97.8 F 85 16 125/83 H 96 08/08/20 09:12 08/08/20 09:12 08/08/20 09:12 08/08/20 09:12 08/08/20 09:12 Oxygen Delivery Method Room Air Weight: 185 lb Body Mass Index (BMI) 26.5 Intake and Output for Last 24 Hours 08/06/20 08/07/20 08/08/20 23:59 23:59 23:59 Intake Total 1100 / 1100 1600 / 1600 Output Total 800 / 800 Balance 1100 / 700 800 / 800 General: Alert, Oriented x3, Cooperative, no acute distress HEENT: Atraumatic, PERRLA, EOMI, Normocephalic Oral: Moist mucosa Neck: Supple, No JVD Lungs: Clear to auscultation, Normal air movement, No rhonchi, No wheeze, No rales Cardiovascular: Regular rate and rhythm, Normal S1, Normal S2, No murmurs Abdomen: Soft, Non Tender, Non-Distended, No Hepato-splenomegaly Extremities: No edema, Capillary Refill Less than 3 Seconds Skin: No rashes, No breakdown Neurological: Neuro grossly intact, Sensory exam intact to light touch and pain Psych/Mental Status: Normal affect, appropriate Current Medications Acetaminophen (Acetaminophen 325 Mg Tablet) 650 mg PO Q4H PRN PRN PRN Reason: Temp > 100.4 F, pain 1-10 Last Admin: 08/06/20 14:36 Dose: 650 mg Documented by: Al Hydroxide/Mg Hydroxide (Mag Hydrox/Al Hydrox/Simeth 30 Ml Udc) 30 ml PO Q6H PRN PRN PRN Reason: dyspesia Atorvastatin Calcium (Atorvastatin Calcium 40 Mg Tablet) 40 mg PO QHS [facility] Last Admin: 08/07/20 21:53 Dose: 40 mg Documented by: Baclofen (Baclofen 10 Mg Tablet) 20 mg PO BID [facility] Last Admin: 08/08/20 09:14 Dose: 20 mg Documented by: Bisacodyl (Bisacodyl 10 Mg Suppository) 10 mg RC DAILY PRN PRN Reason: Constipation Dicyclomine HCl (Dicyclomine 10 Mg Capsule) 20 mg PO Q6H PRN PRN PRN Reason: abdominal discomfort Last Admin: 08/05/20 02:57 Dose: 20 mg Documented by: Folic Acid (Folic Acid 1 Mg Tablet) 1 mg PO DAILY@0800 [facility] Last Admin: 08/08/20 09:14 Dose: 1 mg Documented by: Gabapentin (Gabapentin 300 Mg Capsule) 300 mg PO Q8H PRN PRN PRN Reason: moderate to severe anxiety Last Admin: 08/07/20 21:54 Dose: 300 mg Documented by: Hydroxyzine Pamoate (Hydroxyzine Jackie 25 Mg Capsule) 50 mg PO Q4H PRN PRN PRN Reason: mild anxiety Last Admin: 08/08/20 02:57 Dose: 50 mg Documented by: Sodium Chloride () 250 mls @ 15 mls/hr IV .[id number] PRN PRN Reason: Saline Flush Sodium Chloride () 250 mls @ 15 mls/hr IV .[id number] PRN PRN Reason: Additional IVPB Infusion Ibuprofen (Ibuprofen 600 Mg Tablet) 600 mg PO Q8H PRN PRN PRN Reason: PAIN Last Admin: 08/07/20 02:35 Dose: 600 mg Documented by: Lidocaine HCl (Lidocaine 2% Viscous 15 Ml Udc) 5 ml PO Q3H PRN PRN Reason: PAIN 1-10 Last Admin: 08/06/20 11:01 Dose: 5 ml Documented by: Lisinopril (Lisinopril 20 Mg Tablet) 20 mg PO DAILY [facility] Last Admin: 08/08/20 09:14 Dose: 20 mg Documented by: Loperamide HCl (Loperamide 2 Mg Capsule) 2 mg PO Q4H PRN PRN PRN Reason: LOOSE STOOLS Nicotine (Nicotine 21 Mg Patch) 21 mg TD DAILY [facility] Last Admin: 08/07/20 09:17 Dose: 21 mg Documented by: Ondansetron HCl (Ondansetron 8 Mg Tablet) 8 mg PO Q8H PRN PRN PRN Reason: NAUSEA Phenobarbital (Phenobarbital 32.4 Mg Tablet) 32.4 mg PO Q6H [facility]; Taper Stop: 08/09/20 02:59 Last Admin: 08/08/20 09:14 Dose: 32.4 mg Documented by: Senna (Senna Tablet) 2 tablet PO QHS PRN PRN PRN Reason: Constipation Sodium Chloride (0.9% Saline Lock 10 Ml Syringe) 10 - 40 ml IV UD PRN PRN Reason: SALINE FLUSH Last Admin: 08/05/20 20:02 Dose: 10 ml Documented by: Thiamine HCl (Thiamine Hydrochloride 100 Mg Tablet) 100 mg PO DAILYCM [facility] Last Admin: 08/08/20 09:14 Dose: 100 mg Documented by: Trazodone HCl (Trazodone 100 Mg Tablet) 100 mg PO QHS PRN PRN Reason: INSOMNIA Last Admin: 08/07/20 21:54 Dose: 100 mg Documented by: Discharge Activity: Return to Normal Activity Call your doctor if you observe: Fever of 101 or Higher, Shortness of breath, Dizziness, Fainting spells, Swelling in the ankles, Chest pain, Increased palpitations (irregular heartbeat) Home Medications: Medications to take at Discharge Lisinopril 20 mg PO DAILY 12/16/18 Atorvastatin Calcium [Lipitor] 40 mg PO QHS 03/19/20 Baclofen 20 mg PO BID 03/19/20 Primary Care Physician: Care Physician,No Primary [Primary Care Provider] - Please Follow Up With: [facility] When: 08/12/2020 Please Follow Up With: Psychiatry When: 08/13/2020 Disposition: Home Minutes spent on discharge:: 35 Patient Condition:: Stable Medical Necessity - Tobacco Use Smoking Status: Current every day smoker Tobacco Use: Cigarettes Meaningful Use Info Meaningful Use Diagnoses (Choose all that apply): None applicable Inpatient E&M: 63646 Disch Hosp
== END 2020-08-08 12:00 | disposition home or self-care (01) | DRG 775 ==
LOC: ED 09:54 → MS3 19:25
PROVIDERS: Emergency Medicine; Admitting Provider Family Medicine; Emergency Provider Emergency Medicine; Visit Provider Family Medicine
DX: F10.239 Alcohol dependence with withdrawal, unspecified (principal); G89.29 Other chronic pain; M54.9 Dorsalgia, unspecified; R94.5 Abnormal results of liver function studies; I10 Essential (primary) hypertension; I25.10 Atherosclerotic heart disease of native coronary artery without angina pectoris; Z79.899 Other long term (current) drug therapy; F17.210 Nicotine dependence, cigarettes, uncomplicated
CPT/HCPCS: 36415; 80053; 80074; 80307; 80329; 81001; 82077; 83690; 84443; 84484; 85025; 87426; 93005; 99285; 99406; A4216; G0480

== ENCOUNTER 2020-08-19 19:19 | Emergency (ER) | payer MEDICAID, SELFPAY ==
[2020-08-04 18:19] VITALS: BMI 26.5
[2020-08-19 19:20] VITALS: BP 139/93; PULSE 109; RESP 18; TEMP 34.9; O2SAT 96; BMI 26.5
--- NOTE | 2020-08-19 20:22 | ED.VIS.GEN ---
History of Present Illness Chief Complaint: Mental Health Informant: Patient Narrative: 35-year-old male with history of EtOH abuse presenting for evaluation via [employer]. Patient states that he feels sad because he was for 10 years and is unable to make it work. He feels alone at times. He says he has negative thoughts about himself. Patient states that he was talking to the crisis counseling center on the phone and was telling him these things. He states that he wishes that sometimes when he is admitted to the hospital able just give him extra morphine so he would have to wake up. He does not have homicidal or suicidal ideations. He states he just made a statement because he feels sad. He states he has no will her desire to kill himself. Patient states that he does not do drugs. He states he has been detoxed 3 times in the last month. He describes himself as a alcoholic. He does not want to for detox. - Past Medical History (1) Alcohol dependence Status: Acute (2) Alcohol withdrawal Status: Chronic (3) Alcohol withdrawal seizure Status: Chronic (4) Acute kidney injury Status: Resolved Past Medical History - Allergies and Home Meds Allergies/Adverse Reactions: Allergies Penicillins [PCN] Adverse Reaction (Verified 08/19/20 19:22) Unknown Primary Care Physician: Care Physician,No Primary [Primary Care Provider] - Prior records reviewed: Yes Past Medical History: - - Viewed in problem list Surgical History: noncontributory, appendectomy, - - Plate in left ankle. left hand. Lives: Alone Smoking Status: Current every day smoker Alcohol: None Drugs: None - Family History Maternal Family History: Family History (Last Reviewed 03/19/20 @ 19:[address] Ishan Couch DO) Mother Emphysema of lung Father Hereditary spastic paraplegia Family History: Reports: COPD Paternal Family History: Family History (Last Reviewed 03/19/20 @ 19:[address] Ishan Couch DO) Mother Emphysema of lung Father Hereditary spastic paraplegia Family History: Reports: - - hereditary spastic paraplegia Review of Systems General: Denies: Chills, Fever, Sweats Eyes: Denies: Visual changes - bilaterally, Diplopia ENT: Denies: Rhinorrhea, Sore throat Cardiovascular: Denies: Chest pain, Palpitations Respiratory: Denies: Dyspnea, Cough, Dyspnea on exertion Gastrointestinal: Denies: Abdominal pain, Nausea, Vomiting, Diarrhea, Melena, Hematochezia Genitourinary: Denies: Dysuria, Hematuria, Frequency Musculoskeletal: Denies: Back pain, Extremity Pain Skin: Denies: Rash, Wounds Neurological: Denies: Headache, Weakness, Numbness Psych: Reports: Depression, Anxiety. Denies: Suicidal thoughts, Suicidal ideations Endocrine: Denies: Polyuria, Polydipsia Physical Exam Vital Signs/Narrative: Vital Signs Temp Pulse Resp BP Pulse Ox 08/19/20 19:20 94.9 F L 109 H 18 139/93 H 96 Inital Vital Signs reviewed: Yes General: Well nourished, No Acute Distress Head: Normocephalic, Atraumatic Eyes: Perrl, EOMI ENT: Moist mucous membranes, No rhinorrhea Cardiovascular: Regular rate, Regular rhythm Respiratory: No distress, CTA bilaterally Abdomen: Soft, Nontender, Nondistended Extremities: Nontender, No edema Skin: Normal color, No rash. Negative for: Cyanosis, Diaphoresis, Jaundice Neurological: Alert, Oriented x3, Cranial nerves II-XII grossly intact Psychological: Normal affect, Depressed Diagnostic/Tx/Re-eval Laboratory Data 08/19/20 08/19/20 08/19/20 19:50 20:35 20:35 WBC 7.6 RBC 5.15 Hgb 15.7 Hct 45.4 MCV 88.2 MCH 30.5 MCHC 34.6 RDW Std Deviation 47.8 H RDW Coeff of Srinivasa 14.8 H Plt Count 488 H MPV 9.5 Immature Gran % (Auto) 0.500 Neut % (Auto) 48.5 Lymph % (Auto) 40.6 Hoke % (Auto) 7.4 Eos % (Auto) 1.9 Baso % (Auto) 1.1 H Absolute Neuts (auto) 3.7 Absolute Lymphs (auto) 3.07 Nucleated RBC % 0 Sodium 138 Potassium 3.6 Chloride 105 Carbon Dioxide 26.0 Anion Gap 7 BUN 11 Creatinine 0.73 Estim Creat Clear Calc 145.83 Est GFR (MDRD) Af Amer 156 Est GFR (MDRD) Non-Af 129 BUN/Creatinine Ratio 15.0 Glucose 158 H Calcium 8.2 L Urine Opiates Screen NEGATIVE Urine Methadone Screen NEGATIVE Ur Barbiturates Screen POSITIVE H Ur Phencyclidine Scrn NEGATIVE Ur Amphetamines Screen NEGATIVE U Methamphetamin-MDMA NEGATIVE U Benzodiazepines Scrn NEGATIVE Urine Cocaine Screen NEGATIVE U Cannabinoids Screen NEGATIVE Ur Drug Screen Comment Ethyl Alcohol 08/19/20 20:35 WBC RBC Hgb Hct MCV MCH MCHC RDW Std Deviation RDW Coeff of Srinivasa Plt Count MPV Immature Gran % (Auto) Neut % (Auto) Lymph % (Auto) Hoke % (Auto) Eos % (Auto) Baso % (Auto) Absolute Neuts (auto) Absolute Lymphs (auto) Nucleated RBC % Sodium Potassium Chloride Carbon Dioxide Anion Gap BUN Creatinine Estim Creat Clear Calc Est GFR (MDRD) Af Amer Est GFR (MDRD) Non-Af BUN/Creatinine Ratio Glucose Calcium Urine Opiates Screen Urine Methadone Screen Ur Barbiturates Screen Ur Phencyclidine Scrn Ur Amphetamines Screen U Methamphetamin-MDMA U Benzodiazepines Scrn Urine Cocaine Screen U Cannabinoids Screen Ur Drug Screen Comment Ethyl Alcohol 284.0 - Medical Decision Making 35-year-old male presenting for evaluation by [employer] that although he does have some depression he denies suicidal or homicidal ideation. He does not have any plan to hurt himself. He admits to drinking but he appears to have capacity. Blood work is fairly unremarkable. EtOH 284. Urine tox being positive for barbiturates however the patient has recently detoxed in the hospital. Patient does not want detox now. Again I feel he has capacity to leave. He is given return precautions. Patient able discharge at this time. Impression: 1. Depression ED Disposition - Plan for ED Patient: Disposition: Home or Assisted Living Instructions: ED Depression, ED Alcohol Intoxication Referrals: Care Physician,No Primary [Primary Care Provider] -
[2020-08-19 20:24] LABS: Amphetamine Urine VISTA NEGATIVE (<1000 ng/mL); Barbiturate Urine VISTA POSITIVE (< 200 ng/mL); Benzodiazepine Urine VISTA NEGATIVE (< 200 ng/mL); Cocaine Urine VISTA NEGATIVE (< 300 ng/mL); Ecstacy Urine VISTA NEGATIVE (< 500 ng/mL); Methadone Urine VISTA NEGATIVE (< 300 ng/mL); PCP Urine VISTA NEGATIVE (< 25 ng/mL); THC Urine VISTA NEGATIVE (< 50 ng/mL); Vista UDS pH Range 6
[2020-08-19] MEDS: LORazepam 2 MG/ML Syringe 1 MG IM (20:50)
--- NOTE | 2020-08-19 20:52 | ED.RN ---
pt slammed door in ER wanting to leave. pt states he is not pink slipped and he wants to go home. this nurse de-escalated pt and explained to pt that he was pink slipped to the ER. pt denies SI/ homicidal thoughts. pt asked for something to call me down pt given Ativan per Dr. Chavez.
[2020-08-19 21:06] LABS: Absolute Lymphocyte Count 3.07 X10^3/uL (0.83-4.51); Absolute Neutrophil Count 3.7 X10^3/uL (2.0-7.7); Basophil# 0.08 X10^3/uL; Basophil% 1.1 % (0-1); Eosinophil# 0.14 X10^3/uL; Eosinophils% 1.9 % (0-5); Hematocrit 45.4 % (40-54); Hemoglobin 15.7 g/dL (13.0-16.5); Lymphocyte # 3.07 X10^3/ul (4.0); Lymphocyte % 40.6 % (19-41); Mean Corp Hgb Conc 34.6 g/dL (32-36); Mean Corpuscular Hgb 30.5 pg (27.0-32.0); Mean Corpuscular Volume 88.2 fL (80-94); Mean Platelet Vol. 9.5 fl (6.2-12.0); Monocyte# 0.56 X10^3/uL; Monocyte% 7.4 % (0-10); NRBC Flagged by Analyzer 0 % (0-5); Neutrophil # 3.67 X10^3/uL (2.7-7.7); Neutrophil % 48.5 % (47-70); Platelet Count 488 K/mm3 (150-450); RBC Distribution Width CV 14.8 % (11.6-14.6); RBC Distribution Width SD 47.8 fl (35.1-43.9); Red Blood Count 5.15 M/mm3 (4.6-6.2); White Blood Count 7.6 K/mm3 (4.4-11.0)
[2020-08-19 21:15] LABS: Anion Gap 7 (5-15); BUN 11 mg/dL (7-18); Calcium,Total 8.2 mg/dL (8.5-10.1); Chloride 105 mmol/L (98-107); Creatinine, Serum 0.73 mg/dL (0.70-1.30); EST Glomerular Filtration Rate 129 mL/min (>60); Est Glom Filt Rate - Afr Amer 156 mL/min (>60); Estimated Creatinine Clearance 145.83 ml/min; Glucose 158 mg/dL (74-106); Potassium 3.6 mmol/L (3.5-5.1); Sodium Level 138 mmol/L (136-145)
[2020-08-19 21:34] VITALS: BP 131/87; PULSE 78; RESP 16; O2SAT 97
== END 2020-08-19 21:36 | disposition home or self-care (01) ==
PROVIDERS: Emergency Provider Student in an Organized Health Care Education/Training Program
DX: F32.9 Major depressive disorder, single episode, unspecified (principal); F17.200 Nicotine dependence, unspecified, uncomplicated
CPT/HCPCS: 80048; 80307; 82077; 85025; 96372; 99283

== ENCOUNTER 2020-08-24 20:06 | Observation (INO) | payer MEDICAID, SELFPAY ==
[2020-08-24 20:07] VITALS: BP 152/100; PULSE 117; RESP 15; TEMP 36.2; O2SAT 95; BMI 28.0
[2020-08-24] MEDS: LORazepam 2 MG/ML Syringe IV ×3 (21:05→22:29)
[2020-08-24] MEDS: Phenobarbital Sodium 130 MG/ML Vial 100 MG IV ×2 (21:05→22:29)
--- NOTE | 2020-08-24 21:16 | ED.DCSUM_ITS ---
History of Present Illness Chief Complaint: Substance Abuse Informant: Patient Onset: Month(s) - Heavy alcohol use for the past 1 to 2 months, half gallon of vodka per day Context: Gradual Onset Timing: Continuous Quality: Heavy alcohol consumption Location: Not applicable Current Severity: Severe Maximum Severity: Severe Worsened by: Patient does have symptoms of withdrawal. Does not drink. He wakes up in Relieved by: Alcohol Associated Symptoms: Cramps, tremors Narrative: Patient is a 35-year-old male with history of alcohol dependence. He reports consuming 1/2 gallon of vodka a day. He has been in detox in the past. He does admit to smoking 1 pack of cigarettes per day. He is aware that he is not permitted to smoke while in detox. He does report symptoms withdrawal in the morning or if he decreases his alcohol consumption. He states his last drink was 2 to 3 hours ago. Presently he denies tremors. He denies abdominal pain. Denies diarrhea. He denies history of alcoholic hepatitis or ascites. He denies history of varices. Prior similar symptoms: Yes Recent Illness/Hospitalization: No - Past Medical History (1) History of hypertension Status: Acute (2) Alcohol dependence Status: Acute (3) Nicotine dependence Status: Acute (4) Alcohol withdrawal seizure Status: Chronic (5) History of coronary artery disease Status: Chronic Past Medical History - Allergies and Home Meds Allergies/Adverse Reactions: Allergies Penicillins [PCN] Adverse Reaction (Verified 08/24/20 20:10) Unknown Primary Care Physician: Care Physician,No Primary [Primary Care Provider] - Prior records reviewed: Yes Surgical History: noncontributory, appendectomy, - - Plate in left ankle. left hand. Lives: Alone Smoking Status: Current every day smoker Alcohol: Heavy Drugs: None - Family History Maternal Family History: Family History (Last Reviewed 03/19/20 @ 19:[address] Ishan Couch DO) Mother Emphysema of lung Father Hereditary spastic paraplegia Family History: Reports: COPD Paternal Family History: Family History (Last Reviewed 03/19/20 @ 19:[address] Ishan Couch DO) Mother Emphysema of lung Father Hereditary spastic paraplegia Family History: Reports: - - hereditary spastic paraplegia Review of Systems General: Reports: Malaise, Sweats. Denies: Chills, Fever, Subjective, Weight loss Eyes: Denies: Visual changes - bilaterally, Blurred Vision - bilaterally ENT: Denies: Bilateral ear pain, Rhinorrhea, Sore throat Cardiovascular: Denies: Chest pain, Palpitations Respiratory: Denies: Dyspnea, Cough, Dyspnea on exertion Gastrointestinal: Reports: Abdominal pain, Nausea. Denies: Vomiting, Diarrhea, Melena, Hematochezia Genitourinary: Denies: Dysuria, Hematuria, Frequency Musculoskeletal: Denies: Myalgias, Arthralgias, Neck pain, Back pain, Swelling, Extremity Pain, -, - Skin: Denies: Rash, Wounds Neurological: Denies: Headache, Weakness, Numbness Endocrine: Denies: Polyuria, Polydipsia Hematologic: Denies: Easy bruising, Easy bleeding Allergy: Denies: Uticaria Physical Exam Vital Signs/Narrative: Vital Signs Temp Pulse Resp BP Pulse Ox 08/24/20 20:07 97.2 F L 117 H 15 152/100 H 95 Inital Vital Signs reviewed: Yes General: Well nourished, Well developed, No Acute Distress Head: Normocephalic, Atraumatic Eyes: Perrl, EOMI. Negative for: Pale conjunctiva, Scleral icterus ENT: Moist mucous membranes, No rhinorrhea, TM's clear Neck: Supple, Nontender Cardiovascular: Regular rhythm, No murmurs, Normal S1, Tachycardia Respiratory: No distress, CTA bilaterally, Chest nontender Abdomen: Soft, Nontender, Nondistended, Normal bowel sounds, No masses Rectal: Deferred Back: Nontender, Normal Inspection Extremities: Nontender, No edema Skin: Normal color, No rash, No Trauma. Negative for: Cyanosis, Diaphoresis, Jaundice Neurological: Alert, Oriented x3, Cranial nerves II-XII grossly intact, Normal Strength, Normal Sensation, Normal DTR Psychological: Depressed Diagnostic/Tx/Re-eval Laboratory Results 08/24/20 08/24/20 08/24/20 20:44 20:44 20:44 PT Cancelled INR Cancelled Sodium 143 Potassium 4.1 Chloride 109 H Carbon Dioxide 26.0 Anion Gap 8 BUN 17 Creatinine 0.76 Estim Creat Clear Calc 135.66 Est GFR (MDRD) Af Amer 149 Est GFR (MDRD) Non-Af 123 BUN/Creatinine Ratio 22.3 H Glucose 108 H Calcium 8.4 L Total Bilirubin 0.30 AST 36 ALT 44 Alkaline Phosphatase 144 H Total Protein 7.8 Albumin 3.3 Globulin 4.5 H Albumin/Globulin Ratio 0.7 L Urine Opiates Screen Urine Methadone Screen Ur Barbiturates Screen Ur Phencyclidine Scrn Ur Amphetamines Screen U Methamphetamin-MDMA U Benzodiazepines Scrn Urine Cocaine Screen U Cannabinoids Screen Ur Drug Screen Comment Ethyl Alcohol Cancelled 08/24/20 08/24/20 20:46 21:11 PT Cancelled INR Cancelled Sodium Potassium Chloride Carbon Dioxide Anion Gap BUN Creatinine Estim Creat Clear Calc Est GFR (MDRD) Af Amer Est GFR (MDRD) Non-Af BUN/Creatinine Ratio Glucose Calcium Total Bilirubin AST ALT Alkaline Phosphatase Total Protein Albumin Globulin Albumin/Globulin Ratio Urine Opiates Screen NEGATIVE Urine Methadone Screen NEGATIVE Ur Barbiturates Screen NEGATIVE Ur Phencyclidine Scrn NEGATIVE Ur Amphetamines Screen NEGATIVE U Methamphetamin-MDMA NEGATIVE U Benzodiazepines Scrn NEGATIVE Urine Cocaine Screen NEGATIVE U Cannabinoids Screen NEGATIVE Ur Drug Screen Comment Ethyl Alcohol - Medical Decision Making Addiction order set was initiated. While I during he complained that he needs Ativan. Verbal order was given. Prior to the administration the Ativan that was ordered he was reevaluated. He is hyperreflexic with clonus at the ankles. He is tachycardic. In light of this he received 2 mg of Ativan 100 mg of phenobarb IV push. He was reassessed 10 minutes later and he still hyperreflexic with clonus. Blood work was obtained to assess for anemia, thrombocytopenia. PT/INR was obtained to assess for liver function. Liver enzymes were obtained. Electrolytes to assess his electrolytes, renal function since he has history of kidney injury and anion gap. Patient was reassessed at 2120. He still has clonus. He is still hyperreflexic. An additional 2 mg of Ativan was ordered. His heart rate has decreased to 100. Patient was reassessed at 2145.I was informed by his nurse that he did not receive the second dose of Ativan. Patient was reassessed at 2219. He is still hyperreflexic. He is still tachycardic. He still has clonus. He is awake and alert. He will get an additional dose of Ativan and phenobarb and will contact hospitalist for admission to ICU. - Critical Care Time Critical care time (excluding procedures): 30-74 minutes - Total critical care time 32 minutes. This included pain history, physical exam, review of prior records, evaluation laboratory results and initiation for alcohol withdrawal. He presently does not have DTs., Discussing w/Patient &/or Family/Monitoring Manager, Discussing w/Consultants, Arranging Admission or Transfer ED Disposition - Plan for ED Patient: Disposition: Acute Care Hospital [facility] Diagnosis: Alcohol withdrawal seizure with complication Referrals: Care Physician,No Primary [Primary Care Provider] -
[2020-08-24 21:21] VITALS: BP 120/87; PULSE 108; RESP 16; O2SAT 94
[2020-08-24 21:38] LABS: Amphetamine Urine VISTA NEGATIVE (<1000 ng/mL); Barbiturate Urine VISTA NEGATIVE (< 200 ng/mL); Benzodiazepine Urine VISTA NEGATIVE (< 200 ng/mL); Cocaine Urine VISTA NEGATIVE (< 300 ng/mL); Ecstacy Urine VISTA NEGATIVE (< 500 ng/mL); Methadone Urine VISTA NEGATIVE (< 300 ng/mL); PCP Urine VISTA NEGATIVE (< 25 ng/mL); THC Urine VISTA NEGATIVE (< 50 ng/mL); Vista UDS pH Range 6
[2020-08-24 21:38] LABS: ALB/GLOB Ratio 0.7 RATIO (0.9-2.4); AST(SGOT) 36 U/L (15-37); Alanine Aminotransfer ALT/SGPT 44 U/L (16-61); Albumin, Serum 3.3 g/dL (3.2-5.0); Alkaline Phosphatase 144 U/L (45-117); Anion Gap 8 (5-15); BUN 17 mg/dL (7-18); BUN/Creat Ratio 22.3 RATIO (10-20); Calcium,Total 8.4 mg/dL (8.5-10.1); Chloride 109 mmol/L (98-107); Creatinine, Serum 0.76 mg/dL (0.70-1.30); EST Glomerular Filtration Rate 123 mL/min (>60); Est Glom Filt Rate - Afr Amer 149 mL/min (>60); Estimated Creatinine Clearance 135.66 ml/min; Globulin 4.5 g/dL (2.2-4.2); Glucose 108 mg/dL (74-106); Potassium 4.1 mmol/L (3.5-5.1); Protein, Total 7.8 g/dL (6.4-8.2); Sodium Level 143 mmol/L (136-145)
[2020-08-24 22:18] LABS: International Normalized Ratio 0.9; Prothrombin Time (Protime)PT. 11.7 SECONDS (11.7-14.9)
[2020-08-24 22:23] VITALS: BP 127/75; PULSE 102; RESP 16; O2SAT 96
--- NOTE | 2020-08-24 22:56 | HP.PCM_ITS ---
Problem List (1) Alcohol withdrawal Status: Chronic Qualifiers: Complication of substance-induced condition: uncomplicated Qualified Code(s): F10.230 - Alcohol dependence with withdrawal, uncomplicated (2) Alcohol withdrawal seizure Status: Chronic (3) Nicotine dependence Status: Chronic Qualifiers: Nicotine product type: cigarettes Substance use status: unspecified nicotine-induced disorder Qualified Code(s): F17.219 - Nicotine dependence, cigarettes, with unspecified nicotine-induced disorders (4) Alcohol dependence Status: Acute Qualifiers: Substance use status: unspecified alcohol-induced disorder Qualified Code(s): F10.29 - Alcohol dependence with unspecified alcohol-induced disorder (5) History of hypertension Status: Acute (6) Alcohol withdrawal seizure with complication Status: Chronic (7) Hereditary spastic paraplegia Status: Chronic (8) Chest pain Status: Resolved Qualifiers: Chest pain type: unspecified Qualified Code(s): R07.9 - Chest pain, unspecified (9) History of coronary artery disease Status: Chronic (10) Gastroenteritis Status: Chronic (11) Acute kidney injury Status: Resolved History of Present Illness Date of Admission: 08/24/20 Chief Complaint: alcohol withdrawal and desire for detoxification The patient is a 35 year old M with PMHx of CAD status post stent, tobacco abuse; hypertension, chronic alcohol use disorder with alcohol withdrawal seizure, who comes in requesting for medical stabilization for acute alcohol withdrawal. Patient was very sedated at the time of history taking as he had received multiple doses of phenobarbital and Ativan at emergency department. He reports drinking about half a gallon of vodka per day. Last time he drank was on the morning on the day of presentation. He reports shakiness chest disco mfort and eye discomfort. Of note patient was admitted on 08/04/2020 and discharged on 08/08/2020 for alcohol dependence. Also he was also at a hospital on 07/26/2020 and discharged on 07/28/2020 for alcohol dependence. He has had other admissions for alcohol dependence and withdrawal and has left AMA. Past Medical History Past Medical History (Chronic Problems): Chronic Problems (Last Reviewed 08/25/20 @ 02:[address] Satnam Chappell MD) Alcohol withdrawal (Chronic) Alcohol withdrawal seizure (Chronic) Nicotine dependence (Chronic) Alcohol withdrawal seizure with complication (Chronic) Hereditary spastic paraplegia (Chronic) History of coronary artery disease (Chronic) Gastroenteritis (Chronic) Medical History: Medical History (Last Reviewed 08/25/20 @ 02:[address] Satnam Chappell MD) CAD (coronary artery disease) I25.10 Hypertension I10 Allergies Penicillins [PCN] Adverse Reaction (Verified 08/24/20 20:10) Unknown Home Medications: Ambulatory Orders Medication Instructions Recorded Baclofen 20 mg PO DAILY 08/25/20 Lisinopril 40 mg PO DAILY 08/25/20 Surgical History: noncontributory, appendectomy, - - Plate in left ankle. left hand. Psychiatric History: Bipolar Lives: Alone Smoking Status: Current every day smoker Tobacco Use: Cigarettes Alcohol: Heavy Drugs: None - *Family History Maternal Family History: Family History (Last Reviewed 08/25/20 @ 02:[address] Satnam Chappell MD) Mother Emphysema of lung Father Hereditary spastic paraplegia History Items: COPD Paternal Family History: Family History (Last Reviewed 08/25/20 @ 02:[address] Satnam Chappell MD) Mother Emphysema of lung Father Hereditary spastic paraplegia History Items: - - hereditary spastic paraplegia Review of Systems Constitutional: Denies: Chills, Fever, Weight Change HEENT: Denies: Head Aches, Sinus Congestion, Sinus Drainage Cardiovascular: Denies: Chest Pain, Palpitations Respiratory: Denies: Cough, Shortness of breath at rest, Sputum production Gastrointestinal: Denies: Abdominal Pain, Nausea, Vomiting Genitourinary: Denies: Dysuria Musculoskeletal: Denies: Joint Pain, Joint Tenderness Skin: Denies: Rash, Wounds Neurological: Denies: Numbness, Tingling, Focal weakness Psychiatric: Denies: Anxiety, Depression, Homicidal Ideations, Suicidal Ideations Hematologic/ Lymphatic: Denies: Easy Bruising, Easy Bleeding VTE Information - Inpt Only VTE Present on Admission: No VTE Mechan Device Prophylaxis: None VTE Pharm Prophylaxis ordered?: No Reason prophylaxis not ordered:: Treatment Not Indicated - Low risk, encouraged to ambulate. Patient Problems: Active and Suspected Problems (Last Reviewed 08/25/20 @ 02:[address] Satnam Chappell MD) Alcohol dependence (Acute) History of hypertension (Acute) - Physical Exam Vitals/I&O's: Vital Signs Temp Pulse Resp BP Pulse Ox 97.2 F L 102 H 16 127/75 H 96 04/17/21 20:07 08/24/20 22:23 08/24/20 22:23 08/24/20 22:23 08/24/20 22:23 Oxygen Delivery Method Room Air Weight: 86.183 kg Body Mass Index (BMI) 28.0 General: - - Sedated HEENT: Atraumatic, Normocephalic Neck: Supple, Trachea Midline Lungs: Clear to auscultation, Normal air movement Cardiovascular: No murmurs, Tachycardic Abdomen: Bowel Sounds Present, Soft, Non Tender Extremities: No edema, Capillary Refill Less than 3 Seconds Skin: No rashes, No breakdown Musculoskeletal: No Tenderness to Palpation of Joints or Extremities Neurological: Cranial nerves II-XII grossly intact Psych/Mental Status: Normal Affect, Appropriate Laboratory Results 08/24/20 20:44: PT Cancelled, INR Cancelled 08/24/20 20:44: Sodium 143, Potassium 4.1, Chloride 109 H, Carbon Dioxide 26.0, Anion Gap 8, BUN 17, Creatinine 0.76, Estim Creat Clear Calc 135.66, Est GFR (MDRD) Af Amer 149, Est GFR (MDRD) Non-Af 123, BUN/Creatinine Ratio 22.3 H, Glucose 108 H, Calcium 8.4 L, Total Bilirubin 0.30, AST 36, ALT 44, Alkaline Phosphatase 144 H, Total Protein 7.8, Albumin 3.3, Globulin 4.5 H, Albumin/Globulin Ratio 0.7 L 08/24/20 20:44: Ethyl Alcohol Cancelled 08/24/20 20:46: Urine Opiates Screen NEGATIVE, Urine Methadone Screen NEGATIVE, Ur Barbiturates Screen NEGATIVE, Ur Phencyclidine Scrn NEGATIVE, Ur Amphetamines Screen NEGATIVE, U Methamphetamin-MDMA NEGATIVE, U Benzodiazepines Scrn NEGATIVE, Urine Cocaine Screen NEGATIVE, U Cannabinoids Screen NEGATIVE, Ur Drug Screen Comment 08/24/20 21:11: PT Cancelled, INR Cancelled 08/24/20 22:03: PT 11.7, INR 0.9 08/24/20 22:03: Ethyl Alcohol Pending Assessment/Plan All Active Problems (Last Reviewed 08/25/20 @ 02:[address] Satnam Chappell MD) Alcohol dependence (Acute) History of hypertension (Acute) Chest pain (Resolved) Acute kidney injury (Resolved) The patient is a 35 year old M with PMHx of CAD status post stent, tobacco abuse; hypertension, chronic alcohol use disorder with alcohol withdrawal seizure, who comes in requesting for medical stabilization for acute alcohol withdrawal. Alcohol dependence and desire for detoxification Received multiple dose of Ativan and phenobarbital at emergency department. Initially when the case was discussed with ED doctor the plan was to send patient to intensive care unit. However, examination patient appeared sedated so a decision was made to send patient to medical surgical unit and begin patient on phenobarbital when his sedation wears off. While at the [facility] nurses called at the patient was agitated. Haldol 2 mg IM was ordered and phenobarbital was started. With that the patient's became calm. Will order Haldol IM as needed. Gabapentin as needed; dicyclomine as needed; Vistaril as needed; Imodium as needed; trazodone as needed; Zofran as needed; scheduled thiamine; and schedule folic acid ordered Monitor CIWA score Hypertension Blood pressure is not within goal Lisinopril continued. Trend blood pressure and adjust blood pressure medications. Tobacco abuse Counseled Nicotine patch prescribed. DVT prophylaxis Low risk Encourage to ambulate Inpatient E&M: 32998 Init Hosp L3
--- NOTE | 2020-08-24 23:18 | ED.RN ---
ativan and phenobarb held per hospitalist order. hospitalist in the room evaluating patient prior to admission. elias luna rn [id number]
[2020-08-24 23:20] VITALS: BP 134/99; PULSE 115; RESP 16; TEMP 36.7; O2SAT 96
[2020-08-25 00:15] VITALS: BMI 26.2; BMI 26.3
[2020-08-25 00:16] VITALS: BP 141/108; PULSE 116; RESP 18; TEMP 36.9; O2SAT 97
[2020-08-25 00:33] VITALS: PULSE 114
[2020-08-25] MEDS: Phenobarbital 32.4 MG Tablet 97.2 MG PO ×2 (02:41→06:50)
[2020-08-25] MEDS: Haloperidol Lactate 5 MG/ML Vial 2 MG IM (02:41)
[2020-08-25 05:33] VITALS: BP 137/85; PULSE 110; RESP 18; TEMP 36.6; O2SAT 97
--- NOTE | 2020-08-25 07:55 | NURSING ---
dr jackson in to see pt. pt stated he is done and wanting to leave. ama papers signed. pt belongings given to him.
--- NOTE | 2020-08-25 11:20 | DS.PCM_ITS ---
Discharge Date and Diagnosis - Problem List Patient Problems: Active and Suspected Problems (Last Reviewed 08/25/20 @ 02:[address] Satnam Chappell MD) Alcohol dependence (Acute) History of hypertension (Acute) Date of Admission: 08/24/20 - Primary Discharge Diagnosis Acute Problems: Active Problems (Last Reviewed 08/25/20 @ 02:[address] Satnam Chappell MD) Alcohol dependence (Acute) History of hypertension (Acute) - Secondary Discharge Diagnosis Chronic Problems: Chronic Problems (Last Reviewed 08/25/20 @ 02:[address] Satnam Chappell MD) Alcohol withdrawal (Chronic) Alcohol withdrawal seizure (Chronic) Nicotine dependence (Chronic) Alcohol withdrawal seizure with complication (Chronic) Hereditary spastic paraplegia (Chronic) History of coronary artery disease (Chronic) Gastroenteritis (Chronic) Hospital Course and Treatment Operations: None Procedures: None Summary of Care Provided: The patient is a 35 year old M with admitted for alcohol withdrawal. In the emergency room patient received lorazepam as well as phenobarbital. Patient was noted to be hyperreflexic with clonus per the emergency room documentation. Of note, the patient's alcohol level was 357 and had drank 2 to 3 hours prior to arrival. Patient just presented to the emergency room on the where his alcohol level was 284 and was not going through withdrawal at that time and did not wish to seek attention for alcohol abuse at that time. This is now the patient's with admissions since July 25 for alcohol withdrawal. Through the admissions including this 1 is left AGAINST MEDICAL ADVICE. Patient was to follow-up with psychiatry when asked if he needs seen be indicated that he did not now. Brought up to the patient that he has signed out AGAINST MEDICAL ADVICE because he could not use his phone nor could he smoke even though these were told to him initially. His responses is because I am an alcoholic. I asked if he was going to use that as his response to all my questions. Did not know what to tell me. He undressed him directly in regards to his frequent hospitalizations and his reticence to seek treatment with 180 and psychiatry. He then said I am done and was in indicating that he was leaving again. Patient called a taxi and then asked the staff at the staff is going to pay for that at which time the right not patient left AGAINST MEDICAL ADVICE again. Please refer to my discharge summary from July 28. Patient has underlying psychiatric issues that prohibit him from excepting responsibility for his actions and he is combative towards staff and verbally abusive and abrasive at times. He needs further psychiatric evaluation otherwise he is going to continue to come into the hospital for alcohol withdrawal and he will continue to leave AGAINST MEDICAL ADVICE. He has profound inability to accept any responsibility though he states that he is an alcoholic feel that he truly grasp the work that is involved in regards to maintaining sobriety. Once again, my recommendation is that the patient not be admitted to the [facility] for alcohol withdrawal until his psychiatric illnesses are more stabilized. However, if the patient is going to acute alcohol withdrawal that certainly warrant admission, but given his alcohol level on this admission he was unlikely going to acute alcohol withdrawal [] Patient Problems: Active and Suspected Problems (Last Reviewed 08/25/20 @ 02:[address] Satnam Chappell MD) Alcohol dependence (Acute) History of hypertension (Acute) - Physical Exam Vitals/I&O's: Vital Signs Temp Pulse Resp BP Pulse Ox 36.6 C 110 H 18 137/85 H 97 08/25/20 05:33 08/25/20 05:33 08/25/20 05:33 08/25/20 05:33 08/25/20 05:33 Oxygen Delivery Method Room Air Weight: 83.5 kg Body Mass Index (BMI) 26.2 Intake and Output for Last 24 Hours 08/23/20 08/24/20 08/25/20 23:59 23:59 23:59 Intake Total 300 / 300 Balance 300 / 300 General: Alert, No apparent distress HEENT: Atraumatic, Normocephalic Laboratory Results 08/24/20 20:44: PT Cancelled, INR Cancelled 08/24/20 20:44: Sodium 143, Potassium 4.1, Chloride 109 H, Carbon Dioxide 26.0, Anion Gap 8, BUN 17, Creatinine 0.76, Estim Creat Clear Calc 135.66, Est GFR (MDRD) Af Amer 149, Est GFR (MDRD) Non-Af 123, BUN/Creatinine Ratio 22.3 H, Glucose 108 H, Calcium 8.4 L, Total Bilirubin 0.30, AST 36, ALT 44, Alkaline Phosphatase 144 H, Total Protein 7.8, Albumin 3.3, Globulin 4.5 H, Albumin/Globulin Ratio 0.7 L 08/24/20 20:44: Ethyl Alcohol Cancelled 08/24/20 20:46: Urine Opiates Screen NEGATIVE, Urine Methadone Screen NEGATIVE, Ur Barbiturates Screen NEGATIVE, Ur Phencyclidine Scrn NEGATIVE, Ur Amphetamines Screen NEGATIVE, U Methamphetamin-MDMA NEGATIVE, U Benzodiazepines Scrn NEGATIVE, Urine Cocaine Screen NEGATIVE, U Cannabinoids Screen NEGATIVE, Ur Drug Screen Comment 08/24/20 21:11: PT Cancelled, INR Cancelled 08/24/20 22:03: PT 11.7, INR 0.9 08/24/20 22:03: Ethyl Alcohol 357.0 H* Home Medications: Medications to take at Discharge Baclofen 20 mg PO DAILY 08/25/20 Lisinopril 40 mg PO DAILY 08/25/20 Primary Care Physician: Care Physician,No Primary [Primary Care Provider] - Disposition: Against Medical Advice Medical Necessity - Tobacco Use Smoking Status: Current every day smoker Tobacco Use: Cigarettes Meaningful Use Info Meaningful Use Diagnoses (Choose all that apply): None applicable Inpatient E&M: 57538 [facility]osp
== END 2020-08-25 08:36 | disposition left against medical advice (07) ==
LOC: ED 21:48 → MS3 08-25 07:04
PROVIDERS: Admitting Provider Hospitalist; Emergency Provider Emergency Medicine
DX: F10.239 Alcohol dependence with withdrawal, unspecified (principal); Y90.8 Blood alcohol level of 240 mg/100 ml or more; F17.210 Nicotine dependence, cigarettes, uncomplicated; I10 Essential (primary) hypertension; I25.10 Atherosclerotic heart disease of native coronary artery without angina pectoris; Z79.899 Other long term (current) drug therapy; R56.9 Unspecified convulsions; G11.4 Hereditary spastic paraplegia
CPT/HCPCS: 36415; 80053; 80307; 82077; 85610; 96372; 96374; 96375; 96376; 99218; 99284; A4216; G0378

== ENCOUNTER 2020-08-26 13:23 | Emergency (ER) | payer MEDICAID, SELFPAY ==
[2020-08-25 00:15] VITALS: BMI 26.2
[2020-08-26] VITALS (8 sets, daily range): BP systolic 132–153; BP diastolic 91–99; PULSE 99–119; RESP 14–22; TEMP 36.7; O2SAT 94–98; BMI 28.4
--- NOTE | 2020-08-26 13:41 | ED.VIS.GEN ---
History of Present Illness Chief Complaint: Substance Abuse Informant: Patient, - - Person from 180 Onset: Hours Context: Sudden Onset Timing: Continuous Quality: Alcohol dependency Location: Not applicable Current Severity: Severe Maximum Severity: Severe Worsened by: Underlying undiagnosed psychiatric disorder Relieved by: Nothing Associated Symptoms: Symptoms of withdrawal when he decreases his alcohol consumption Narrative: Patient is a 35-year-old male who was admitted on Wednesday by me for alcohol withdrawal. He signed out AGAINST MEDICAL ADVICE. The discharge note was read. Since there apparently is a underlying undiagnosed psychiatric disorder will have case management see patient for admission at facility that can treat both psychiatric illness and alcoholism. Patient states since he is left ear is had several half balance of vodka. He has history of panic attacks. He does report depression. He denies fever, chills or night sweats. He denies ocular, visual auditory symptoms. He denies cardiac respiratory symptoms. He denies hematemesis, melena hematochezia. He denies abdominal pain. When he was asked what he would like done he reports having a panic attack. He became agitated rubbing his head and getting worked up. Prior similar symptoms: Yes Recent Illness/Hospitalization: Yes - Past Medical History (1) Alcohol dependence Status: Acute (2) History of hypertension Status: Acute (3) Gastroenteritis Status: Chronic (4) Hereditary spastic paraplegia Status: Chronic (5) History of coronary artery disease Status: Chronic (6) Nicotine dependence Status: Chronic Past Medical History - Allergies and Home Meds Allergies/Adverse Reactions: Allergies Penicillins [PCN] Adverse Reaction (Verified 08/26/20 13:26) Unknown Primary Care Physician: Care Physician,No Primary [Primary Care Provider] - Prior records reviewed: Yes Surgical History: noncontributory, appendectomy, - - Plate in left ankle. left hand. Lives: Alone Smoking Status: Current every day smoker Alcohol: Heavy Drugs: None - Family History Maternal Family History: Family History (Last Reviewed 08/25/20 @ 02:[address] Satnam Chappell MD) Mother Emphysema of lung Father Hereditary spastic paraplegia Family History: Reports: COPD Paternal Family History: Family History (Last Reviewed 08/25/20 @ 02:[address] Satnam Chappell MD) Mother Emphysema of lung Father Hereditary spastic paraplegia Family History: Reports: - - hereditary spastic paraplegia Review of Systems General: Denies: Fever, Sweats, Weight loss Eyes: Denies: Visual changes - bilaterally, Blurred Vision - bilaterally ENT: Denies: Rhinorrhea, Sore throat Cardiovascular: Reports: Heart racing. Denies: Chest pain, Palpitations Respiratory: Denies: Dyspnea, Cough, Sputum, Dyspnea on exertion Gastrointestinal: Denies: Abdominal pain, Nausea, Vomiting, Diarrhea, Melena, Hematochezia Genitourinary: Denies: Dysuria, Hematuria, Frequency Musculoskeletal: Denies: Myalgias, Arthralgias, Neck pain, Back pain, Swelling, Extremity Pain, -, - Skin: Denies: Rash, Wounds Neurological: Denies: Headache, Weakness, Parasthesia Psych: Reports: Depression, Anxiety. Denies: Suicidal thoughts Hematologic: Denies: Easy bruising, Easy bleeding Physical Exam Vital Signs/Narrative: Vital Signs Temp Pulse Resp BP Pulse Ox 08/26/20 13:23 98.0 F 107 H 14 142/99 H 96 Inital Vital Signs reviewed: Yes General: Well nourished, Well developed, No Acute Distress Head: Normocephalic, Atraumatic Eyes: Perrl, EOMI ENT: Moist mucous membranes, No rhinorrhea Neck: Supple, Nontender, No lymphadenopathy, No JVD Cardiovascular: Regular rhythm, No murmurs, Tachycardia Respiratory: No distress, CTA bilaterally, Chest nontender Abdomen: Soft, Nontender, Nondistended, Normal bowel sounds Back: Nontender, Normal Inspection Extremities: Nontender, No edema Skin: Normal color, No rash Neurological: Alert, Oriented x3, Cranial nerves II-XII grossly intact, Normal Strength, Normal Sensation, Normal DTR - Hyperreflexia all extremities with clonus at the ankles. Psychological: Normal affect, Normal Mood Diagnostic/Tx/Re-eval 08/26/20 14:15 Mucosa - Nose SARS-CoV-2 Antigen (Rapid) - Final Laboratory Results 08/26/20 08/26/20 08/26/20 13:50 14:20 14:20 WBC 5.4 RBC 5.39 Hgb 15.3 Hct 44.5 MCV 82.6 MCH 28.4 MCHC 34.4 RDW Std Deviation 40.3 RDW Coeff of Srinivasa 13.4 Plt Count 243 MPV 9.3 Immature Gran % (Auto) 0.400 Neut % (Auto) 51.6 Lymph % (Auto) 41.2 H [place] % (Auto) 6.0 Eos % (Auto) 0.2 Baso % (Auto) 0.6 Absolute Neuts (auto) 2.8 Absolute Lymphs (auto) 2.21 Nucleated RBC % 0 Sodium 140 Potassium 3.7 Chloride 108 H Carbon Dioxide 24.0 Anion Gap 8 BUN 13 Creatinine 0.63 L Estim Creat Clear Calc 168.98 Est GFR (MDRD) Af Amer 186 Est GFR (MDRD) Non-Af 153 BUN/Creatinine Ratio 20.6 H Glucose 96 Calcium 8.4 L Total Bilirubin 0.20 AST 65 H ALT 68 H Alkaline Phosphatase 150 H Total Protein 8.1 Albumin 3.5 Globulin 4.6 H Albumin/Globulin Ratio 0.8 L Lipase 88 Urine Opiates Screen NEGATIVE Urine Methadone Screen NEGATIVE Ur Barbiturates Screen POSITIVE H Ur Phencyclidine Scrn NEGATIVE Ur Amphetamines Screen NEGATIVE U Methamphetamin-MDMA NEGATIVE U Benzodiazepines Scrn NEGATIVE Urine Cocaine Screen NEGATIVE U Cannabinoids Screen NEGATIVE Ur Drug Screen Comment Ethyl Alcohol 08/26/20 14:20 WBC RBC Hgb Hct MCV MCH MCHC RDW Std Deviation RDW Coeff of Srinivasa Plt Count MPV Immature Gran % (Auto) Neut % (Auto) Lymph % (Auto) [place] % (Auto) Eos % (Auto) Baso % (Auto) Absolute Neuts (auto) Absolute Lymphs (auto) Nucleated RBC % Sodium Potassium Chloride Carbon Dioxide Anion Gap BUN Creatinine Estim Creat Clear Calc Est GFR (MDRD) Af Amer Est GFR (MDRD) Non-Af BUN/Creatinine Ratio Glucose Calcium Total Bilirubin AST ALT Alkaline Phosphatase Total Protein Albumin Globulin Albumin/Globulin Ratio Lipase Urine Opiates Screen Urine Methadone Screen Ur Barbiturates Screen Ur Phencyclidine Scrn Ur Amphetamines Screen U Methamphetamin-MDMA U Benzodiazepines Scrn Urine Cocaine Screen U Cannabinoids Screen Ur Drug Screen Comment Ethyl Alcohol 297.0 Patient is intoxicated with alcohol level of 297. During interview with case management he voiced suicidal thoughts and wanting to . He does have a underlying psychiatric disorder as well as a alcohol dependency. He will need admission at a facility is able to treat both. He has been pink slipped. - Medical Decision Making Screening blood work and Covid test for admission to facility is able to care for psychiatric illness and alcohol intoxication. Since patient alcohol level is 297 plan is repeat in 4 hours to determine his rate of metabolism. There is concern that if we allow his level to decrease he will go through withdrawal. Disposition is pending alcohol level and interview with psychiatry. Patient was turned over to the afternoon physician Dr. Gordon Herrera. ED Disposition - Plan for ED Patient: Disposition: Psychiatric Hospital or Unit Diagnosis: Depression with suicidal ideation, Personality disorder, unspecified, Alcohol abuse with physiological dependence, Alcohol intoxication in active alcoholic Referrals: Care Physician,No Primary [Primary Care Provider] -
[2020-08-26 14:08] LABS: Amphetamine Urine VISTA NEGATIVE (<1000 ng/mL); Barbiturate Urine VISTA POSITIVE (< 200 ng/mL); Benzodiazepine Urine VISTA NEGATIVE (< 200 ng/mL); Cocaine Urine VISTA NEGATIVE (< 300 ng/mL); Ecstacy Urine VISTA NEGATIVE (< 500 ng/mL); Methadone Urine VISTA NEGATIVE (< 300 ng/mL); PCP Urine VISTA NEGATIVE (< 25 ng/mL); THC Urine VISTA NEGATIVE (< 50 ng/mL); Vista UDS pH Range 6
[2020-08-26 14:29] LABS: Absolute Lymphocyte Count 2.21 X10^3/uL (0.83-4.51); Absolute Neutrophil Count 2.8 X10^3/uL (2.0-7.7); Basophil# 0.03 X10^3/uL; Basophil% 0.6 % (0-1); Eosinophil# 0.01 X10^3/uL; Eosinophils% 0.2 % (0-5); Hematocrit 44.5 % (40-54); Hemoglobin 15.3 g/dL (13.0-16.5); Lymphocyte # 2.21 X10^3/ul (0.83-4.51); Lymphocyte % 41.2 % (19-41); Mean Corp Hgb Conc 34.4 g/dL (32-36); Mean Corpuscular Hgb 28.4 pg (27.0-32.0); Mean Corpuscular Volume 82.6 fL (80-94); Mean Platelet Vol. 9.3 fl (6.2-12.0); Monocyte# 0.32 X10^3/uL; NRBC Flagged by Analyzer 0 % (0-5); Neutrophil # 2.78 X10^3/uL (2.7-7.7); Neutrophil % 51.6 % (47-70); Platelet Count 243 K/mm3 (150-450); RBC Distribution Width CV 13.4 % (11.6-14.6); RBC Distribution Width SD 40.3 fl (35.1-43.9); Red Blood Count 5.39 M/mm3 (4.6-6.2); White Blood Count 5.4 K/mm3 (4.4-11.0)
[2020-08-26] MEDS: LORazepam 1 MG Tablet 2 MG PO (14:38)
[2020-08-26 14:44] LABS: ALB/GLOB Ratio 0.8 RATIO (0.9-2.4); AST(SGOT) 65 U/L (15-37); Alanine Aminotransfer ALT/SGPT 68 U/L (16-61); Albumin, Serum 3.5 g/dL (3.2-5.0); Alkaline Phosphatase 150 U/L (45-117); Anion Gap 8 (5-15); BUN 13 mg/dL (7-18); BUN/Creat Ratio 20.6 RATIO (10-20); Calcium,Total 8.4 mg/dL (8.5-10.1); Chloride 108 mmol/L (98-107); Creatinine, Serum 0.63 mg/dL (0.70-1.30); EST Glomerular Filtration Rate 153 mL/min (>60); Est Glom Filt Rate - Afr Amer 186 mL/min (>60); Estimated Creatinine Clearance 168.98 ml/min; Globulin 4.6 g/dL (2.2-4.2); Glucose 96 mg/dL (74-106); Lipase 88 U/L (73-393); Potassium 3.7 mmol/L (3.5-5.1); Protein, Total 8.1 g/dL (6.4-8.2); Sodium Level 140 mmol/L (136-145)
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
--- NOTE | 2020-08-26 15:38 | CM.ED ---
SOCIAL WORK Referral called and faxed to [facility]. Pending review at this time.
[2020-08-26] MEDS: LORazepam 2 MG/ML Syringe IV ×2 (16:03→17:35)
--- NOTE | 2020-08-26 16:25 | CM.ED ---
SOCIAL WORK Received call from [facility]. Patient accepted by Dr. Gil to the [facility]. Nurse to call report to and ask for [facility]. Lunchroom Worker to set up transport. Patient and nurse updated. Kaden Quintero, RESIDENT DOCTOR, PETROLOGY TEACHER
--- NOTE | 2020-08-26 17:08 | ED.RN ---
THIS NURSE TRIED TO CALL REPORT TO [facility], NO ONE ANSWERED THE PHONE WILL TRY AGAIN LATER.
== END 2020-08-26 16:55 ==
PROVIDERS: Emergency Provider Emergency Medicine
DX: F10.129 Alcohol abuse with intoxication, unspecified (principal); F32.9 Major depressive disorder, single episode, unspecified; R45.851 Suicidal ideations; I10 Essential (primary) hypertension; I25.10 Atherosclerotic heart disease of native coronary artery without angina pectoris; F17.200 Nicotine dependence, unspecified, uncomplicated
CPT/HCPCS: 80053; 80307; 82077; 83690; 85025; 87426; 96374; 96376; 99285; A4216

== ENCOUNTER 2020-11-02 12:22 | Emergency (ER) | payer MEDICAID, SELFPAY ==
[2020-08-26 13:23] VITALS: BMI 28.4
[2020-11-02 12:23] VITALS: BP 110/63; PULSE 111; RESP 16; TEMP 36.8; O2SAT 97; BMI 27.2
--- NOTE | 2020-11-02 13:17 | EX.ED.DYSGE1 ---
HPI History of Present Illness Chief Complaint: Substance Abuse Informant: patient Narrative Narrative: Patient is a 35-year-old male who presents to the emergency department for alcohol detox as well as aggression. He states that he has been drinking heavily over the past couple weeks. Has been through detox many times before in the past. He states he drinks as much as he possibly can. He is unable to quantify for me how much he typically drinks. He will drink whenever he can get his hands on. He states he drinks a sixpack of beer. Patient states he is working with [facility] to get him into a dual diagnosis center. He states that he has been having arguing in his head. He has been seeing shapes in his vision which she does not want to go away but he wants to arguing to stop. States he has not slept at all over the past few days. He denies any headache or neck pain. No chest pain or shortness of breath. He denies any abdominal pain or nausea/vomiting. He denies any issues with drug use. He does smoke cigarettes. [facility] Medical History (Updated 11/02/20 @ 19:[address] Satnam Reynoso DO) CAD (coronary artery disease) Hypertension Home Medications baclofen 20 mg PO BID 11/02/20 [History Last Taken Unknown] lisinopril 40 mg PO DAILY 11/02/20 [History Last Taken Unknown] Allergy/AdvReac Type Severity Reaction Status Date / Time Penicillins [PCN] AdvReac Unknown Verified 11/02/20 12:23 Family History Mother Emphysema of lung Father Hereditary spastic paraplegia Social History Smoking Status: Current every day smoker tobacco type: cigarettes ROS ROS ED Constitutional Constitutional ED: Denies chills or fever(s) Eyes Eyes: Denies change in vision ENT ENT ED: Denies epistaxis or rhinorrhea Cardiovascular Cardiovascular: Denies chest pain or palpitations Respiratory/Chest Respiratory/Chest: Denies cough, dyspnea or dyspnea on exertion Gastrointestinal Gastrointestinal: Denies abdominal pain, diarrhea, nausea or vomiting Genitourinary Genitourinary ED: Denies dysuria, hematuria or urinary frequency Musculoskeletal Musculoskeletal: Denies back pain or neck pain Integumentary Denies rash Neurologic Neurologic: Denies dizziness, headache(s) or weakness EXAM Physical Exam Const Vital Signs: 11/02/20 12:23 Temperature 98.2 F Temperature Source Temporal Pulse Rate 111 H Respiratory Rate 16 Blood Pressure 110/63 Blood Pressure Mean 78 Pulse Ox 97 Oxygen Delivery Method Room Air Positive well nourished and well developed Constitutional Narrative: Patient taking the clock off the wall to take the batteries out whenever I walked into the room. General Appearance ED: well developed, irritable and NAD HEENT Reports normocephalic, head/scalp atraumatic and moist mucous membranes Eyes PERRL and EOMs intact bilaterally Neck supple Chest Wall inspection of chest normal Resp normal respiratory effort and clear to auscultation bilaterally Auscultation: Negative for rales, rhonchi or wheezes Cardio regular rhythm and no murmurs Rate: tachycardic GI normal to inspection, nondistended, normoactive bowel sounds and non-tender Palpation: soft; Negative for guarding or rebound tenderness present Back/Spine no CVA tenderness Extremity normal to inspection General Extremety ED: Negative for edema or tenderness General Extremity: Negative for edema Neuro CN's II-XII intact bilaterally and no sensory deficits noted Sensorium / Orientation: alert Motor Exam: strength 5/5 throughout Psych denies homicidal ideation and denies suicidal ideation Activity / Motor Behavior: hyperactive and restless Speech: rapid Mood & Affect: irritable Attention / Concentration: attention grossly intact Skin no rashes or lesions noted MDM MDM MDM Narrative Medical decision making narrative: Patient presents to the ED to detox from alcohol. He also states he has been having aggression. Patient states that he needs a shot to help him sleep. This would be for the staff safety. Patient will give a dose of IV Ativan. Will check basic lab work. Will consult social work. Patient's lab work shows alcohol level to be 331. I did give the patient a dose of IV Ativan. Patient's lab work otherwise did not reveal any significant acute abnormality. His talk screen was negative. Patient denying any suicidal or homicidal ideation. When waiting for crisis to call back patient states he was tired of waiting and wanted to leave. Patient able to ambulate on his own power. I do not feel patient is of any threat to himself or anyone else and does not meet pink slip criteria. He is currently following with 180 and is to continue to do this. Patient is signed out AGAINST MEDICAL ADVICE though. Patient can return anytime for help with alcohol detox and psych assessment. Lab Data Labs: Laboratory Results - last 24 hr 11/02/20 11/02/20 11/02/20 13:25 13:25 13:25 WBC 6.8 RBC 5.17 Hgb 15.1 Hct 43.9 MCV 84.9 MCH 29.2 MCHC 34.4 RDW Std Deviation 43.4 RDW Coeff of Srinivasa 13.9 Plt Count 234 MPV 10.0 Immature Gran % (Auto) 0.400 Neut % (Auto) 45.1 L Lymph % (Auto) 47.1 H [place] % (Auto) 6.3 Eos % (Auto) 0.7 Baso % (Auto) 0.4 Absolute Neuts (auto) 3.1 Absolute Lymphs (auto) 3.19 Nucleated RBC % 0 Sodium 139 Potassium 4.1 Chloride 107 Carbon Dioxide 23.0 Anion Gap 9 BUN 11 Creatinine 0.63 L Estim Creat Clear Calc 168.98 Est GFR (MDRD) Af Amer 187 Est GFR (MDRD) Non-Af 155 BUN/Creatinine Ratio 17.6 Glucose 104 Calcium 8.3 L Total Bilirubin 0.20 AST 38 H ALT 43 Alkaline Phosphatase 143 H Total Protein 7.8 Albumin 3.6 Globulin 4.2 Albumin/Globulin Ratio 0.9 Urine Opiates Screen Urine Methadone Screen Ur Barbiturates Screen Ur Phencyclidine Scrn Ur Amphetamines Screen U Methamphetamin-MDMA U Benzodiazepines Scrn Urine Cocaine Screen U Cannabinoids Screen Ur Drug Screen Comment Ethyl Alcohol 331.0 H* 11/02/20 13:39 WBC RBC Hgb Hct MCV MCH MCHC RDW Std Deviation RDW Coeff of Srinivasa Plt Count MPV Immature Gran % (Auto) Neut % (Auto) Lymph % (Auto) [place] % (Auto) Eos % (Auto) Baso % (Auto) Absolute Neuts (auto) Absolute Lymphs (auto) Nucleated RBC % Sodium Potassium Chloride Carbon Dioxide Anion Gap BUN Creatinine Estim Creat Clear Calc Est GFR (MDRD) Af Amer Est GFR (MDRD) Non-Af BUN/Creatinine Ratio Glucose Calcium Total Bilirubin AST ALT Alkaline Phosphatase Total Protein Albumin Globulin Albumin/Globulin Ratio Urine Opiates Screen NEGATIVE Urine Methadone Screen NEGATIVE Ur Barbiturates Screen NEGATIVE Ur Phencyclidine Scrn NEGATIVE Ur Amphetamines Screen NEGATIVE U Methamphetamin-MDMA NEGATIVE U Benzodiazepines Scrn NEGATIVE Urine Cocaine Screen NEGATIVE U Cannabinoids Screen NEGATIVE Ur Drug Screen Comment Ethyl Alcohol Discharge Plan Triage Chief Complaint: Substance Abuse ED Provider: Satnam Reynoso Dx/Rx/DC Orders Clinical Impression: Alcohol intoxication, Agitation Prescriptions: No Action baclofen 20 mg tablet 20 mg PO BID RF: 0 lisinopril 40 mg tablet 40 mg PO DAILY RF: 0 Primary Care Provider: Care Physician,No Primary Referrals: Care Physician,No Primary [Primary Care Provider] - Disposition Disposition: Against Medical Advice Discharge Date/Time: 11/02/20 15:41
[2020-11-02] MEDS: LORazepam 2 MG/ML Syringe 1 MG IV (13:24)
--- NOTE | 2020-11-02 13:35 | ED.RN ---
PT TOOK THE CLOCK OFF THE WALL AND WAS TAKING IT APART BECAUSE THE TICKING IS DRIVING ME NUTS.. THE PT WAS EDUCATED NOT TO DAMAGE PROPERTY AND THE CLOCK WAS REMOVED FROM THE ROOM. CHARGE NURSE AWARE.
[2020-11-02 13:40] LABS: Absolute Lymphocyte Count 3.19 X10^3/uL (0.83-4.51); Absolute Neutrophil Count 3.1 X10^3/uL (2.0-7.7); Basophil# 0.03 X10^3/uL; Basophil% 0.4 % (0-1); Eosinophil# 0.05 X10^3/uL; Eosinophils% 0.7 % (0-5); Hematocrit 43.9 % (40-54); Hemoglobin 15.1 g/dL (13.0-16.5); Lymphocyte # 3.19 X10^3/ul (0.83-4.51); Lymphocyte % 47.1 % (19-41); Mean Corp Hgb Conc 34.4 g/dL (32-36); Mean Corpuscular Hgb 29.2 pg (27.0-32.0); Mean Corpuscular Volume 84.9 fL (80-94); Monocyte# 0.43 X10^3/uL; Monocyte% 6.3 % (0-10); NRBC Flagged by Analyzer 0 % (0-5); Neutrophil # 3.05 X10^3/uL (2.7-7.7); Neutrophil % 45.1 % (47-70); Platelet Count 234 K/mm3 (150-450); RBC Distribution Width CV 13.9 % (11.6-14.6); RBC Distribution Width SD 43.4 fl (35.1-43.9); Red Blood Count 5.17 M/mm3 (4.6-6.2); White Blood Count 6.8 K/mm3 (4.4-11.0)
[2020-11-02 13:56] LABS: Amphetamine Urine VISTA NEGATIVE (<1000 ng/mL); Barbiturate Urine VISTA NEGATIVE (< 200 ng/mL); Benzodiazepine Urine VISTA NEGATIVE (< 200 ng/mL); Cocaine Urine VISTA NEGATIVE (< 300 ng/mL); Ecstacy Urine VISTA NEGATIVE (< 500 ng/mL); Methadone Urine VISTA NEGATIVE (< 300 ng/mL); PCP Urine VISTA NEGATIVE (< 25 ng/mL); THC Urine VISTA NEGATIVE (< 50 ng/mL); Vista UDS pH Range 6
[2020-11-02 14:23] LABS: ALB/GLOB Ratio 0.9 RATIO (0.9-2.4); AST(SGOT) 38 U/L (15-37); Alanine Aminotransfer ALT/SGPT 43 U/L (16-61); Albumin, Serum 3.6 g/dL (3.2-5.0); Alkaline Phosphatase 143 U/L (45-117); Anion Gap 9 (5-15); BUN 11 mg/dL (7-18); BUN/Creat Ratio 17.6 RATIO (10-20); Calcium,Total 8.3 mg/dL (8.5-10.1); Chloride 107 mmol/L (98-107); Creatinine, Serum 0.63 mg/dL (0.70-1.30); EST Glomerular Filtration Rate 155 mL/min (>60); Est Glom Filt Rate - Afr Amer 187 mL/min (>60); Estimated Creatinine Clearance 168.98 ml/min; Globulin 4.2 g/dL (2.2-4.2); Glucose 104 mg/dL (74-106); Potassium 4.1 mmol/L (3.5-5.1); Protein, Total 7.8 g/dL (6.4-8.2); Sodium Level 139 mmol/L (136-145)
--- NOTE | 2020-11-02 14:30 | NURSING ---
CALLED CRISIS EDDIE CALLED BACK SENT CALL TO WINIFRED JOURNAL ENTRY AUDIT CLERK
--- NOTE | 2020-11-02 14:38 | NURSING ---
DEMETRIS MORGAN, CALLED. SHE IS UNABLE TO SEE PATIENT UNTIL ALCOHOL IS BELOW 100. WINIFRED, PARTS CASTING MACHINE OPERATOR, IS TO HELP KEEP AN EYE ON ETOH
--- NOTE | 2020-11-02 15:11 | ED.RN ---
pt using the f bomb over the intercom. this rn back to room, pt sitting up swearing and using the f word. states this is fucking ridiculous, you are fucking stupid. security to room as pt continues swearing. acccording to rn crises to eval. will not pink slip
--- NOTE | 2020-11-02 15:38 | ED.RN ---
Pt left premises. stated,I'm done here. You people don't want to help me, Yelling at me for cussing. Pt did not accept redirection well for cursing though verbalized it is his natural way of speaking. He was calm and cooperative during this conversation though he pulled his IV out, bleeding onto floor and sink. He was cooperative while I cleaned him up and placed bandage to IV site. He verbalized he would follow up with 180 when encouraged by another nurse. Physician aware.
--- NOTE | 2020-11-02 15:41 | ED.RN ---
OFFICER PEYTON OF [facility] NOTIFIED THE PT HAS LEFT THE DEPARTMENT. PT EXTREMELY INTOXICATED. PT IS NOT PINK SLIPPED. PER [facility], PT IS ON THE PHONE ATTEMPTING TO GET A RIDE
--- NOTE | 2020-11-02 16:26 | CM.ED ---
OTF Note OTF was advised that MD wanted to speak to this comic writer. said that patient came in for detox but reports [facility] is working with him on a dual diagnosis program. Patient made a remark about a patient made a remark about staff safety . OTF advised that due to this comic writer covering acute that Crisis would need to be called. OTF requested that staff call Crisis. OTF received call from Dara in crisis. Dara was advised patient's presentation and what MD had reported. OTF checked and patient BAL is over 300 thus crisis will need to be contacted later to see patient. SW came to unit. advised patient did not wish to wait and reports no Si/HI and thus patient was discharged. Plan: Home Nydia CAGLE
== END 2020-11-02 15:41 | disposition left against medical advice (07) ==
LOC: ED 13:30
PROVIDERS: Emergency Provider Emergency Medicine
DX: F10.129 Alcohol abuse with intoxication, unspecified (principal); R45.1 Restlessness and agitation; F17.210 Nicotine dependence, cigarettes, uncomplicated; I25.10 Atherosclerotic heart disease of native coronary artery without angina pectoris; I10 Essential (primary) hypertension; Z79.899 Other long term (current) drug therapy; Y90.8 Blood alcohol level of 240 mg/100 ml or more
CPT/HCPCS: 80053; 80307; 82077; 85025; 96374; 99282; A4216

== ENCOUNTER 2020-11-21 07:31 | Inpatient (IN) | payer MEDICAID, SELFPAY ==
[2020-11-21 07:32] VITALS: BP 148/114; PULSE 105; RESP 16; TEMP 36.7; O2SAT 95; BMI 30.1
[2020-11-21 07:36] VITALS: BP 148/114; PULSE 102; RESP 18; TEMP 36.7; O2SAT 93
--- NOTE | 2020-11-21 07:44 | EDS_ITS ---
HPI History of Present Illness Chief Complaint: ETOH Intox Narrative Narrative: 35-year-old male with history of alcohol abuse presents with the desire to detox from alcohol. He states that he has attempted detox before without success. Patient states that he was drinking about 1/5 of bourbon a day. He recently switched to wine and states that he drinks about 2-1/2 gallons a day. Patient last drank about an hour before arrival. Patient denies any drug abuse. Patient is a smoker. He does not feel as if he is withdrawing currently. He does have history of alcohol withdrawal and alcohol withdrawal seizure. [facility] Medical History CAD (coronary artery disease) ETOH abuse Hypertension Home Medications baclofen 20 mg PO BID 11/02/20 [History Last Taken Unknown] lisinopril 40 mg PO DAILY 11/02/20 [History Last Taken Unknown] Allergy/AdvReac Type Severity Reaction Status Date / Time Penicillins [PCN] AdvReac Unknown Verified 11/21/20 07:31 Family History Mother Emphysema of lung Father Hereditary spastic paraplegia Social History Smoking Status: Current every day smoker tobacco type: cigarettes ROS ROS ED Constitutional Constitutional ED: Denies fever(s) or subjective Eyes Eyes: Denies blurry vision or diplopia ENT ENT ED: Denies rhinorrhea or sore throat Cardiovascular Cardiovascular: Denies chest pain or palpitations Respiratory/Chest Respiratory/Chest: Denies cough, dyspnea or sputum Gastrointestinal Gastrointestinal: Denies abdominal pain, nausea or vomiting Genitourinary Genitourinary ED: Denies dysuria or urinary frequency Musculoskeletal Musculoskeletal: Denies arthralgias or myalgias Integumentary Denies abscess or rash Neurologic Neurologic: Denies headache(s) or paresthesias Psychiatric Psychiatric: Denies anxiety, suicidal ideation or suicidal thoughts EXAM Physical Exam Const Vital Signs: 11/21/20 07:32 11/21/20 07:36 Temperature 98.1 F 98.1 F Temperature Source Oral Oral Pulse Rate 105 H 102 H Respiratory Rate 16 18 Blood Pressure 148/114 H 148/114 H Blood Pressure Mean 125 125 Blood Pressure Source Monitor Blood Pressure Position Supine Blood Pressure Location Right Arm Pulse Ox 95 93 Oxygen Delivery Method Room Air Room Air Positive well nourished General Appearance ED: NAD HEENT Reports moist mucous membranes atraumatic Eyes PERRL and EOMs intact bilaterally General Eye ED: Negative for scleral icterus Resp normal respiratory effort and clear to auscultation bilaterally Cardio regular rate and regular rhythm GI soft to palpation, non-tender and non-distended Extremity General Extremety ED: Negative for edema or tenderness General Extremity: Negative for edema Neuro oriented x3 Sensorium / Orientation: alert Psych mental status grossly normal and thought process normal Skin General Skin Exam: Negative for jaundice Lesions: no lesions Rashes: no rashes MDM MDM MDM Narrative Medical decision making narrative: Patient presenting for alcohol detox. He did request some Ativan to keep him calm. His blood work-up is fairly unremarkable with exception of an EtOH of 355. Patient has not exhibited any signs of withdrawal in the ED physically. Discussed with hospitalist for admission. Patient admitted in stable condition. Impression: 1. EtOH abuse 2. EtOH detox Lab Data Attestation: I reviewed the patient's lab results. Labs: Laboratory Results - last 24 hr 11/21/20 11/21/20 11/21/20 08:00 08:00 08:00 WBC 6.5 RBC 5.28 Hgb 15.0 Hct 45.1 MCV 85.4 MCH 28.4 MCHC 33.3 RDW Std Deviation 44.1 H RDW Coeff of Srinivasa 14.2 Plt Count 272 MPV 9.4 Immature Gran % (Auto) 0.500 Neut % (Auto) 54.0 Lymph % (Auto) 36.6 [place] % (Auto) 7.5 Eos % (Auto) 0.8 Baso % (Auto) 0.6 Absolute Neuts (auto) 3.5 Absolute Lymphs (auto) 2.38 Nucleated RBC % 0 Sodium 139 Potassium 3.9 Chloride 106 Carbon Dioxide 24.0 Anion Gap 9 BUN 11 Creatinine 0.73 Estim Creat Clear Calc 136.64 Est GFR (MDRD) Af Amer 156 Est GFR (MDRD) Non-Af 129 BUN/Creatinine Ratio 15.0 Glucose 97 Calcium 8.7 Total Bilirubin 0.30 Direct Bilirubin 0.13 AST 85 H ALT 121 H Alkaline Phosphatase 137 H Total Protein 8.2 Albumin 3.6 Globulin 4.6 H Lipase 96 Urine Opiates Screen Urine Methadone Screen Ur Barbiturates Screen Ur Phencyclidine Scrn Ur Amphetamines Screen U Methamphetamin-MDMA U Benzodiazepines Scrn Urine Cocaine Screen U Cannabinoids Screen Ur Drug Screen Comment Ethyl Alcohol 11/21/20 11/21/20 08:00 08:00 WBC RBC Hgb Hct MCV MCH MCHC RDW Std Deviation RDW Coeff of Srinivasa Plt Count MPV Immature Gran % (Auto) Neut % (Auto) Lymph % (Auto) [place] % (Auto) Eos % (Auto) Baso % (Auto) Absolute Neuts (auto) Absolute Lymphs (auto) Nucleated RBC % Sodium Potassium Chloride Carbon Dioxide Anion Gap BUN Creatinine Estim Creat Clear Calc Est GFR (MDRD) Af Amer Est GFR (MDRD) Non-Af BUN/Creatinine Ratio Glucose Calcium Total Bilirubin Direct Bilirubin AST ALT Alkaline Phosphatase Total Protein Albumin Globulin Lipase Urine Opiates Screen NEGATIVE Urine Methadone Screen NEGATIVE Ur Barbiturates Screen NEGATIVE Ur Phencyclidine Scrn NEGATIVE Ur Amphetamines Screen NEGATIVE U Methamphetamin-MDMA NEGATIVE U Benzodiazepines Scrn NEGATIVE Urine Cocaine Screen NEGATIVE U Cannabinoids Screen NEGATIVE Ur Drug Screen Comment Ethyl Alcohol 355.0 H* Discharge Plan Triage Chief Complaint: ETOH Intox ED Provider: Jerel Chavez Dx/Rx/DC Orders Prescriptions: No Action baclofen 20 mg tablet 20 mg PO BID RF: 0 lisinopril 40 mg tablet 40 mg PO DAILY RF: 0 Primary Care Provider: Care Physician,No Primary
[2020-11-21 08:11] LABS: Absolute Lymphocyte Count 2.38 X10^3/uL (0.83-4.51); Absolute Neutrophil Count 3.5 X10^3/uL (2.0-7.7); Basophil# 0.04 X10^3/uL; Basophil% 0.6 % (0-1); Eosinophil# 0.05 X10^3/uL; Eosinophils% 0.8 % (0-5); Hematocrit 45.1 % (40-54); Lymphocyte # 2.38 X10^3/ul (0.83-4.51); Lymphocyte % 36.6 % (19-41); Mean Corp Hgb Conc 33.3 g/dL (32-36); Mean Corpuscular Hgb 28.4 pg (27.0-32.0); Mean Corpuscular Volume 85.4 fL (80-94); Mean Platelet Vol. 9.4 fl (6.2-12.0); Monocyte# 0.49 X10^3/uL; Monocyte% 7.5 % (0-10); NRBC Flagged by Analyzer 0 % (0-5); Neutrophil # 3.52 X10^3/uL (2.7-7.7); Platelet Count 272 K/mm3 (150-450); RBC Distribution Width CV 14.2 % (11.6-14.6); RBC Distribution Width SD 44.1 fl (35.1-43.9); Red Blood Count 5.28 M/mm3 (4.6-6.2); White Blood Count 6.5 K/mm3 (4.4-11.0)
[2020-11-21 08:28] LABS: Anion Gap 9 (5-15); BUN 11 mg/dL (7-18); Calcium,Total 8.7 mg/dL (8.5-10.1); Chloride 106 mmol/L (98-107); Creatinine, Serum 0.73 mg/dL (0.70-1.30); EST Glomerular Filtration Rate 129 mL/min (>60); Est Glom Filt Rate - Afr Amer 156 mL/min (>60); Estimated Creatinine Clearance 136.64 ml/min; Glucose 97 mg/dL (74-106); Lipase 96 U/L (73-393); Potassium 3.9 mmol/L (3.5-5.1); Sodium Level 139 mmol/L (136-145)
[2020-11-21 08:29] LABS: AST(SGOT) 85 U/L (15-37); Alanine Aminotransfer ALT/SGPT 121 U/L (16-61); Albumin, Serum 3.6 g/dL (3.2-5.0); Alkaline Phosphatase 137 U/L (45-117); Bilirubin, Direct 0.13 mg/dL (0.00-0.30); Globulin 4.6 g/dL (2.2-4.2); Protein, Total 8.2 g/dL (6.4-8.2)
[2020-11-21 08:34] LABS: Amphetamine Urine VISTA NEGATIVE (<1000 ng/mL); Barbiturate Urine VISTA NEGATIVE (< 200 ng/mL); Benzodiazepine Urine VISTA NEGATIVE (< 200 ng/mL); Cocaine Urine VISTA NEGATIVE (< 300 ng/mL); Ecstacy Urine VISTA NEGATIVE (< 500 ng/mL); Methadone Urine VISTA NEGATIVE (< 300 ng/mL); PCP Urine VISTA NEGATIVE (< 25 ng/mL); THC Urine VISTA NEGATIVE (< 50 ng/mL); Vista UDS pH Range 6
[2020-11-21] MEDS: LORazepam 2 MG/ML Syringe 1 MG IV (08:54)
[2020-11-21 10:24] VITALS: BP 135/91; PULSE 112; RESP 16; RESP 20; TEMP 36.7; O2SAT 97
--- NOTE | 2020-11-21 10:27 | PCM.HP.STD ---
HPI - General General Date of Admission: 11/21/20 Date of Service: 11/21/20 Chief Complaint: Requesting alcohol detox services HPI Narrative GERDA MCGHEE, is a 35 M who presents to the emergency room at [facility] with request of being admitted for inpatient alcohol detox services. Patient drinks usually 1/5 of bourbon a day, he then admits to drinking approximately 2 gallons a day of wine when he is not drinking bourbon. Patient has no complaints at this time of nervousness, tremor, muscle cramping, or nausea. Patient has been active with 180 before. Past medical history includes coronary artery disease and hypertension. Patient also has hereditary spastic paraplegia. Work-up in the emergency room included labs which showed an elevated alcohol level, patient's liver enzymes are also elevated, patient's CBC was unremarkable, and the patient's tox screen did not show any illicit substances. Patient will be admitted to [place] [id number], orders were entered using the alcohol detox order set, patient will be seen by addiction social worker palliative care during his hospitalization. He request to use Ativan for detox-he does not want to use phenobarbital. [facility] Medical History CAD (coronary artery disease) ETOH abuse Hypertension Home Medications baclofen 20 mg PO BID 11/02/20 [History Last Taken Unknown] lisinopril 40 mg PO DAILY 11/02/20 [History Last Taken Unknown] Allergy/AdvReac Type Severity Reaction Status Date / Time Penicillins [PCN] AdvReac Unknown Verified 11/21/20 07:31 Family History Mother Emphysema of lung Father Hereditary spastic paraplegia Social History Smoking Status: Current every day smoker tobacco type: cigarettes ROS Constitutional Constitutional: Denies fever(s) Eyes Eyes: Denies blurry vision, change in vision or diplopia ENT HEENT: Denies abnormal hearing, ear pain, hearing loss, rhinorrhea or sore throat Cardiovascular Cardiovascular: Denies chest pain, dyspnea on exertion, lightheadedness, orthopnea or palpitations Respiratory/Chest Respiratory/Chest: Denies cough, dyspnea, excessive phlegm production, productive cough, shortness of breath at rest or shortness of breath with exertion Gastrointestinal Gastrointestinal: Denies abdominal pain, nausea or vomiting Genitourinary Genitourinary: Denies dysuria or urinary frequency Musculoskeletal Musculoskeletal: Denies arthralgias or myalgias Integumentary Integumentary: Denies rash Neurologic Neurologic: Denies headache(s) or paresthesias Psychiatric Psychiatric: Denies anxiety, suicidal ideation or suicidal thoughts Endocrine Endocrinology: Denies change in body appearance, cold intolerance or excessive sweating Hematologic/Lymphatic Hematologic/Lymphatic: Denies anemia or easy bleeding Allergic/Immunologic Allergic/Immunologic: Denies hives, eczemia or asthma Vital Signs Vital Signs Vital Signs: 11/21/20 07:32 11/21/20 07:36 11/21/20 10:24 Temperature 98.1 F 98.1 F 98.1 F Temperature Source Oral Oral Temporal Pulse Rate 105 H 102 H 112 H Respiratory Rate 16 18 16 Blood Pressure 148/114 H 148/114 H 135/91 H Blood Pressure Mean 125 125 105 Blood Pressure Source Monitor Blood Pressure Position Supine Blood Pressure Location Right Arm Pulse Ox 95 93 97 Oxygen Delivery Method Room Air Room Air Room Air Weight Weight: 89.9 kg Body Mass Index (BMI) 30.1 Physical Exam Const alert, oriented x3 and no apparent distress Constitutional Narrative: Patient appears intoxicated, he is cooperative and not aggressive or anxious at this time General Appearance: well kempt and well developed Orientation / Consciousness: awake, oriented to person, oriented to place and oriented to time HEENT normocephalic, head/scalp atraumatic, hearing grossly normal bilaterally and moist oral mucous membranes Eyes PERRL, EOMs intact bilaterally and conjunctivae normal Neck nuchal rigidity, supple, no JVD, thyroid normal and no carotid bruits General: trachea midline Resp normal respiratory effort, no retractions, no use of accessory muscles and clear to auscultation bilaterally Auscultation: Negative for rales, rhonchi or wheezes Cardio regular rate, regular rhythm, S1 normal heart sound, S2 normal heart sound, no murmurs, no rub and no gallops GI normal to inspection, nondistended, normoactive bowel sounds, soft to palpation, non-tender and non-distended Extremity normal to inspection and no clubbing, cyanosis or edema Skin no rashes or lesions noted and no wounds General Skin Exam: no breakdown Neuro oriented x3, CN's II-XII intact bilaterally, no focal motor deficits and no sensory deficits noted Sensorium / Orientation: awake and alert Psych thought process normal and affect normal Psych Narrative: Patient appears intoxicated Results Lab / Micro Data Result Diagrams: 11/21/20 08:00 11/21/20 08:00 Labs: Laboratory Results - last 24 hr 11/21/20 08:00: Total Bilirubin 0.30, Direct Bilirubin 0.13, AST 85 H, ALT 121 H, Alkaline Phosphatase 137 H, Total Protein 8.2, Albumin 3.6, Globulin 4.6 H 11/21/20 08:00: WBC 6.5, RBC 5.28, Hgb 15.0, Hct 45.1, MCV 85.4, MCH 28.4, MCHC 33.3, RDW Std Deviation 44.1 H, RDW Coeff of Srinivasa 14.2, Plt Count 272, MPV 9.4, Immature Gran % (Auto) 0.500, Neut % (Auto) 54.0, Lymph % (Auto) 36.6, [place] % (Auto) 7.5, Eos % (Auto) 0.8, Baso % (Auto) 0.6, Absolute Neuts (auto) 3.5, Absolute Lymphs (auto) 2.38, Nucleated RBC % 0 11/21/20 08:00: Sodium 139, Potassium 3.9, Chloride 106, Carbon Dioxide 24.0, Anion Gap 9, BUN 11, Creatinine 0.73, Estim Creat Clear Calc 136.64, Est GFR (MDRD) Af Amer 156, Est GFR (MDRD) Non-Af 129, BUN/Creatinine Ratio 15.0, Glucose 97, Calcium 8.7, Lipase 96 11/21/20 08:00: Ethyl Alcohol 355.0 H* 11/21/20 08:00: Urine Opiates Screen NEGATIVE, Urine Methadone Screen NEGATIVE, Ur Barbiturates Screen NEGATIVE, Ur Phencyclidine Scrn NEGATIVE, Ur Amphetamines Screen NEGATIVE, U Methamphetamin-MDMA NEGATIVE, U Benzodiazepines Scrn NEGATIVE, Urine Cocaine Screen NEGATIVE, U Cannabinoids Screen NEGATIVE, Ur Drug Screen Comment Assessment & Plan Assessment/Plan (1) Alcohol dependence: QUALIFIERS: Substance use status: unspecified alcohol-induced disorder Qualified Code(s): F10.29 - Alcohol dependence with unspecified alcohol-induced disorder PLAN: 1. Alcohol withdrawal-patient is asymptomatic at this time however, he will be admitted to [facility] 3, orders were entered using the alcohol detox order set, Ativan will be used with taper #2 coronary artery disease-patient is not taking any statin, I will place him back on a statin, I will also place him on a baby aspirin a day #3 hereditary spastic paraplegia #4 essential hypertension-patient will remain on lisinopril Charges/Coding Visit Charges Inpatient E&M: 56050 Init Hosp L3
--- NOTE | 2020-11-21 10:39 | CM.ED ---
SOCIAL WORK Referral Source: Self-referral Reason for Consult: ETOH Intox- requesting alcohol detox Patient presents to [facility] ER for alcohol detox. Patient has been admitted for detox in the past and signed out AMA. Patient reported last drink was today. Patient completed [facility] agreement with nursing. Call to [facility], left message for Jolly updating on patient's admission to [facility]. Plan: Admit to [facility] Kaden Quintero, [employer]OWER, MIXING OPERATOR
--- NOTE | 2020-11-21 11:20 | ADDICTION ---
This underwriter mortgage loan met with PT to conduct ASAM, MSE, AUDIT, DUDIT, assessments and to plan for d/c. PT compliant. All assessments completed, PT requesting inpatient MH treatment. THis underwriter mortgage loan will look for resources. PT plans to attend individual appointment with core rescuer on Saturday 11/25.
[2020-11-21 11:28] VITALS: BMI 28.9
--- NOTE | 2020-11-21 11:50 | NURSING ---
Casi from [facility] entered room talking with pt. pt gave home keys to Casi to go to his house and empty out all his alcohol bottles. [place] given to Casi, Casi will also take Helio a oil recovery unit operator with her. John re-locked up. Casi will bring back the keys when finished.
--- NOTE | 2020-11-21 12:08 | NURSING ---
Casi from [employer] returning with pts keys. keys locked back up in tote.
[2020-11-21] MEDS: LORazepam 1 MG Tablet 2 MG PO ×4 (12:15→20:58)
[2020-11-21] MEDS: Ibuprofen 600 MG Tablet PO ×2 (12:16→22:29)
[2020-11-21] MEDS: Baclofen 10 MG Tablet 20 MG PO ×2 (13:36→22:29)
[2020-11-21] MEDS: Gabapentin 300 MG Capsule PO (13:45)
[2020-11-21] MEDS: Ondansetron 8 MG Tablet PO (13:45)
[2020-11-21] MEDS: Acetaminophen 500 MG Tablet PO (13:45)
[2020-11-21] MEDS: Dicyclomine 10 MG Capsule 20 MG PO (13:45)
--- NOTE | 2020-11-21 16:59 | CHAPLAIN ---
Type of Pastoral Visit _x__ Initial Visit ___ Follow-up Visit ___ On-call Visit ___ General Patient Visit ___ Spiritual Assessment ___ Family Conference ___ Bereavement ___ Rapid Response ___ Code Blue ___ Other (describe below) Pastoral Care Referral From _x__ Patient ___ Family ___ Nurse ___ Physician ___ Mails Supervisor ___ Turntable Man ___ Other (describe below) Sacrament/Intervention _x__ Active listening ___ Anointing ___ Christian ___ Bereavement ___ Communion ___ Lizzie exploration ___ _x__ Life review _x__ Prayer ___ Reconciliation ___ Sacrament of Sick _x__ Supportive presence ___ Wedding ___ Other (describe below) Pastoral Comments patient has been seen before in [facility] program; pt states that I have some sobriety but I always go back to the alcohol and I'm bored and alone so I drink and it seems to be impossible to stay sober and I don't know anybody who doesn't drink or do drugs; pt says that groups don't work for him; pt given time for listening, presence so not alone, and words of hope; pt states he believes there is a God but not one that is personally involved in our lives; however pt says that this health aid can pray for him and that he appreciates the time and support shown
[2020-11-21 22:19] VITALS: BP 154/100; PULSE 98; RESP 18; TEMP 36.7; O2SAT 98
[2020-11-21] MEDS: traZODone 100 MG Tablet PO (22:29)
[2020-11-22] MEDS: LORazepam 1 MG Tablet 2 MG PO ×6 (00:44→15:18)
[2020-11-22 03:46] VITALS: BP 148/99; PULSE 84; RESP 18; TEMP 36.5; O2SAT 95
[2020-11-22 08:42] VITALS: BP 144/93; PULSE 105; RESP 18; TEMP 36.7; O2SAT 98
[2020-11-22] MEDS: Folic Acid 1 MG Tablet PO (08:52)
[2020-11-22] MEDS: Gabapentin 300 MG Capsule PO (08:52)
[2020-11-22] MEDS: Lisinopril 40 MG Tablet PO (08:52)
[2020-11-22] MEDS: Ibuprofen 600 MG Tablet PO (08:52)
[2020-11-22] MEDS: Thiamine Hydrochloride 100 MG Tablet PO (08:52)
[2020-11-22] MEDS: Nicotine Polacrilex 2 MG GUM PO (08:56)
[2020-11-22] MEDS: Baclofen 10 MG Tablet 20 MG PO (08:56)
[2020-11-22] MEDS: 0.9% Saline Lock 10 ML Syringe IV ×3 (09:54→11:22)
[2020-11-22] MEDS: LORazepam 2 MG/ML Syringe IV ×2 (10:00→11:22)
[2020-11-22 11:14] VITALS: BP 142/96; PULSE 102; RESP 18; TEMP 36.5; O2SAT 97
[2020-11-22 15:21] VITALS: BP 139/92; PULSE 112; RESP 16; TEMP 36.4; O2SAT 98
--- NOTE | 2020-11-23 17:11 | PCM.DC.SUM ---
Providers Date of Admission: 11/21/20 Date of Discharge: 11/22/20 Primary Care Physician: No Primary Care Phys Reason For Visit: ETOH DETOX Diagnosis Discharge Diagnosis (1) Alcohol dependence: Status: Acute Code(s): F10.20 - Alcohol dependence, uncomplicated Qualifiers: Substance use status: unspecified alcohol-induced disorder Qualified Code(s): F10.29 - Alcohol dependence with unspecified alcohol-induced disorder Plan: 1. Acute alcohol withdrawal #2 chronic alcoholism #3 noncompliance with medical regimen #4 essential hypertension #5 alcohol intoxication Medications at Discharge Home Medications baclofen 20 mg PO BID 11/02/20 lisinopril 40 mg PO DAILY 11/02/20 mirtazapine 15 mg PO QHS 11/22/20 Hospital Course Operations None Procedures None Summary of Care Provided Minutes Spent on Discharge: 32 Hospital Course: This 35-year-old white male was seen in the emergency room at [facility] requesting services for alcohol detox. Patient has been through detox programs before including once at this hospital but is always relapsed. Labs obtained in the emergency room included a blood alcohol level which was elevated at 355. Patient was admitted to [place] [address] and orders were entered using the alcohol detox order set, patient was seen by addiction social work program coordinator. Patient had no untoward events during his hospitalization. On 11/22/2020, patient was seen and examined: On examination he appeared in good health and spirits. Vital signs as documented. Skin warm and dry and without overt rashes. Neck without JVD, neck was supple, trachea midline, thyroid was normal. Lungs clear bilaterally, normal air movement was noted. Heart exam notable for regular rhythm, normal sounds and absence of murmurs, rubs or gallops. Abdomen unremarkable and without evidence of organomegaly, masses, or abdominal aortic enlargement. Bowel sounds are present, abdomen is not distended. Extremities nonedematous, no cyanosis was noted, no clubbing was noted. Neuro: Cranial nerves II through XII are grossly intact, no focal motor deficits were noted, sensation to light touch and pinprick intact, motor exam 5/5 throughout. Psych: Patient is alert and oriented x3, he does not appear anxious or depressed, he does not appear agitated. On the afternoon of 11/22/2020, patient abruptly felt that he needed to be discharged and he was discharged AGAINST MEDICAL ADVICE. Prognosis is poor as the patient has been through many admissions for alcohol detox. Weight / BMI Weight Weight: 86.3 kg Body Mass Index (BMI) 28.9 ABG / Lab / Microbiology Data Result Diagrams: 11/21/20 08:00 11/21/20 08:00 Meaningful Use Info Meaningful Use Diagnoses (Choose all that apply): None applicable Discharge Plan Admission Admit Date/Time: 11/21/20 10:21 Attending Provider: Dani Bautista Primary Care Provider: Care Physician,No Primary Instructions Patient Instructions: ED Chest Pain, Noncardiac Discharge Orders/Prescriptions Prescriptions: No Action baclofen 20 mg tablet 20 mg PO BID RF: 0 lisinopril 40 mg tablet 40 mg PO DAILY RF: 0 mirtazapine 15 mg tablet 15 mg PO QHS RF: 0 Referrals / Follow Up: Care Physician,No Primary [Primary Care Provider] - Disposition Disposition (needs filled in before D/C Order can be placed): Against Medical Advice Charges/Coding Visit Charges Inpatient E&M: 04253 Disch Hosp
== END 2020-11-22 17:36 | disposition left against medical advice (07) | DRG 770 ==
LOC: ED 08:51 → MS3 10:48
PROVIDERS: Admitting Provider Internal Medicine; Emergency Provider Student in an Organized Health Care Education/Training Program; Visit Provider Internal Medicine
DX: F10.239 Alcohol dependence with withdrawal, unspecified (principal); Y90.8 Blood alcohol level of 240 mg/100 ml or more; I10 Essential (primary) hypertension; Z91.19 Patient's noncompliance with other medical treatment and regimen; Z79.899 Other long term (current) drug therapy; F17.210 Nicotine dependence, cigarettes, uncomplicated; I25.10 Atherosclerotic heart disease of native coronary artery without angina pectoris; G11.4 Hereditary spastic paraplegia
CPT/HCPCS: 80048; 80076; 80307; 82077; 83690; 85025; 99285; A4216

== ENCOUNTER 2020-12-17 08:12 | Inpatient (IN) | payer MEDICAID, SELFPAY ==
[2020-12-17 08:13] VITALS: BP 153/80; PULSE 112; RESP 15; TEMP 36.1; O2SAT 94; BMI 28.8
--- NOTE | 2020-12-17 08:51 | EDS_ITS ---
HPI History of Present Illness Chief Complaint: Substance Abuse Detail of Chief Complaint: Requesting detox from alcohol Informant: patient Narrative Narrative: Patient presents to the emergency department requesting detox from alcohol. Patient states that he has had multiple visits for detox. His last visit to this hospital several months ago. His last drink was about 2 AM. Patient drinks wine or whiskey or beer whenever he can get his hands on. Currently feels somewhat shaky and some mild nausea. Patient also states he feels very hungry. Patient also states that he injured his back about 5 days ago working on his car just and that he was getting up and down frequently but had no direct trauma. At times he has pain radiating down his right leg and thinks he has an issue with sciatica. Patient also has history of hereditary spastic paraplegia. He denies recent illness otherwise. PFSH PFS Medical History Anxiety CAD (coronary artery disease) Depression ETOH abuse GERD (gastroesophageal reflux disease) Hernia Hypertension Jaundice Kidney stones Seizures Smoker Home Medications baclofen 20 mg PO BID 11/02/20 [History Last Taken Unknown] lisinopril 40 mg PO DAILY 11/02/20 [History Last Taken Unknown] mirtazapine 15 mg PO QHS 11/22/20 [History Last Taken Unknown] Allergy/AdvReac Type Severity Reaction Status Date / Time Penicillins [PCN] AdvReac Unknown Verified 11/21/20 07:31 Family History Mother Emphysema of lung Father Hereditary spastic paraplegia Surgical History History of appendectomy Social History Smoking Status: Current every day smoker tobacco type: cigarettes ROS ROS ED ROS Narrative Feels shaky Constitutional Constitutional ED: Reports systems reviewed and no addt'l complaints, except as documented; Denies body ache(s), change in weight or chills Eyes Eyes: Denies acute decrease in peripheral vision, change in vision, double vision or loss of vision ENT ENT ED: Reports none; Denies ear pain, lip swelling, loss taste/smell, neck pain, otalgia or sore throat Cardiovascular Cardiovascular: Reports none; Denies abdominal pain, chest pain with activity, leg edema, lightheadedness, palpitations, rapid heart rate or syncope Respiratory/Chest Respiratory/Chest: Reports none; Denies change in mental status, dry cough, dyspnea, hemoptysis, shortness of breath at rest or shortness of breath with exertion Gastrointestinal Gastrointestinal: Reports none and nausea; Denies abdominal pain, change in s tool character, diarrhea, hematemesis, hematochezia, melena, rectal bleeding or vomiting Genitourinary Genitourinary ED: Reports none; Denies abdominal discomfort, anuria, dysuria, genital pain or polyuria Musculoskeletal Musculoskeletal: Reports none; Denies arthralgias, back pain, difficulty walking, extremity pain, muscle weakness or myalgias Integumentary Reports none; Denies abscess or rash Neurologic Neurologic: Reports none; Denies abnormal gait, confusion, focal weakness, frequent falls, headache(s), loss of vision, numbness, paresthesias, radicular pain, vertigo or weakness Psychiatric Psychiatric: Reports systems reviewed and no addt'l complaints, except as documented and none; Denies behavioral changes, confusion, difficulty concentrating, hallucinations, suicidal ideation, tactile hallucinations or visual hallucinations Endocrine Endocrinology: Denies none, cold intolerance, excessive sweating, fatigue or heat intolerance Hematologic/Lymphatic Hematologic/Lymphatic: Reports none; Denies anemia, easy bleeding or easy bruising Allergic/Immunologic Allergic/Immunologic ED: Denies as per HPI, none, lip swelling, mouth swelling, throat swelling, tongue swelling or hives EXAM Physical Exam Const Vital Signs: 12/17/20 08:13 Temperature 97 F L Temperature Source Oral Pulse Rate 112 H Respiratory Rate 15 Blood Pressure 153/80 H Blood Pressure Mean 104 Pulse Ox 94 Oxygen Delivery Method Room Air Positive well nourished and well developed General Appearance ED: well developed and NAD HEENT Reports TM's clear and moist mucous membranes normocephalic and atraumatic; Negative for trauma or tenderness Tympanic Membrane ED: Yes TM's clear Eyes PERRL and EOMs intact bilaterally General Eye ED: Negative for pale conjunctiva or scleral icterus Neck no lymphadenopathy, supple and no JVD General: Negative for tenderness Chest Wall inspection of chest normal and palpation of chest normal Chest: Negative for tenderness Resp normal respiratory effort and clear to auscultation bilaterally Effort and Inspection: Negative for respiratory distress or pain with movement Auscultation: Negative for rhonchi, wheezes or diminished lung sounds Cardio regular rate, regular rhythm, S1 normal heart sound, S2 normal heart sound and no murmurs Peripheral Pulses: pulses 2+ throughout GI normal to inspection, nondistended, normoactive bowel sounds, soft to palpation, non-tender, non-distended and no masses Back/Spine no CVA tenderness and no thoracic nor lumbar tenderness Back/Spine Narrative: No significant tenderness over the thoracic or lumbar spine. He has some mild tenderness over right lumbar paraspinal musculature. Negative straight leg raises. Deep tendon reflexes plus 2 out of 4 bilaterally at the patella and Achilles. Patient has normal 5 extension. Patient has normal sensation to light touch. Extremity normal to inspection General Extremety ED: Negative for edema General Extremity: Negative for edema Neuro oriented x3, CN's II-XII intact bilaterally, no sensory deficits noted and gait normal Sensorium / Orientation: awake, alert, oriented to person, oriented to place and oriented to time Motor Exam: strength 5/5 throughout and strength abnormal Psych mental status grossly normal Skin no rashes or lesions noted and no wounds MDM MDM MDM Narrative Medical decision making narrative: Patient received Librium and Zofran in the emergency department. Case will be discussed with hospitalist evaluate patient for admission. Lab Data Attestation: I reviewed the patient's lab results. Labs: Laboratory Results - last 24 hr 12/17/20 12/17/20 12/17/20 08:15 08:15 08:15 WBC 6.7 RBC 5.01 Hgb 14.4 Hct 43.3 MCV 86.4 MCH 28.7 MCHC 33.3 RDW Std Deviation 45.7 H RDW Coeff of Srinivasa 14.4 Plt Count 372 MPV 10.3 Immature Gran % (Auto) 0.500 Neut % (Auto) 44.6 L Lymph % (Auto) 44.[address] [place] % (Auto) 8.6 Eos % (Auto) 1.2 Baso % (Auto) 0.8 Absolute Neuts (auto) 3.0 Absolute Lymphs (auto) 2.95 Nucleated RBC % 0 Sodium 138 Potassium 3.7 Chloride 104 Carbon Dioxide 26.0 Anion Gap 8 BUN 10 Creatinine 0.56 L Estim Creat Clear Calc 184.11 Est GFR (MDRD) Af Amer 214 Est GFR (MDRD) Non-Af 177 BUN/Creatinine Ratio 18.0 Glucose 89 Calcium 8.3 L Total Bilirubin 0.10 L AST 25 ALT 45 Alkaline Phosphatase 112 Total Protein 8.1 Albumin 3.6 Globulin 4.5 H Albumin/Globulin Ratio 0.8 L Lipase 107 Ethyl Alcohol 229.0 Discharge Plan Triage Chief Complaint: Substance Abuse ED Provider: Handy Melton Dx/Rx/DC Orders Clinical Impression: Alcohol intoxication, Alcohol withdrawal, Admitted to alcohol detoxification center Prescriptions: No Action baclofen 20 mg tablet 20 mg PO BID RF: 0 lisinopril 40 mg tablet 40 mg PO DAILY RF: 0 mirtazapine 15 mg tablet 15 mg PO QHS RF: 0 Primary Care Provider: Care Physician,No Primary Referrals: Care Physician,No Primary [Primary Care Provider] - Disposition Disposition: Acute Care Hospital [facility]
[2020-12-17 08:56] LABS: Absolute Lymphocyte Count 2.95 X10^3/uL (0.83-4.51); Basophil# 0.05 X10^3/uL; Basophil% 0.8 % (0-1); Eosinophil# 0.08 X10^3/uL; Eosinophils% 1.2 % (0-5); Hematocrit 43.3 % (40-54); Hemoglobin 14.4 g/dL (13.0-16.5); Lymphocyte # 2.95 X10^3/ul (0.83-4.51); Lymphocyte % 44.3 % (19-41); Mean Corp Hgb Conc 33.3 g/dL (32-36); Mean Corpuscular Hgb 28.7 pg (27.0-32.0); Mean Corpuscular Volume 86.4 fL (80-94); Mean Platelet Vol. 10.3 fl (6.2-12.0); Monocyte# 0.57 X10^3/uL; Monocyte% 8.6 % (0-10); NRBC Flagged by Analyzer 0 % (0-5); Neutrophil # 2.98 X10^3/uL (2.7-7.7); Neutrophil % 44.6 % (47-70); Platelet Count 372 K/mm3 (150-450); RBC Distribution Width CV 14.4 % (11.6-14.6); RBC Distribution Width SD 45.7 fl (35.1-43.9); Red Blood Count 5.01 M/mm3 (4.6-6.2); White Blood Count 6.7 K/mm3 (4.4-11.0)
[2020-12-17] MEDS: Ondansetron 4 MG/2 ML Vial IV (08:58)
[2020-12-17] MEDS: 0.9% Normal Saline 1,000 ML 150 ML IV (08:58)
[2020-12-17 09:17] LABS: ALB/GLOB Ratio 0.8 RATIO (0.9-2.4); AST(SGOT) 25 U/L (15-37); Alanine Aminotransfer ALT/SGPT 45 U/L (16-61); Albumin, Serum 3.6 g/dL (3.2-5.0); Alkaline Phosphatase 112 U/L (45-117); Anion Gap 8 (5-15); BUN 10 mg/dL (7-18); Calcium,Total 8.3 mg/dL (8.5-10.1); Chloride 104 mmol/L (98-107); Creatinine, Serum 0.56 mg/dL (0.70-1.30); EST Glomerular Filtration Rate 177 mL/min (>60); Est Glom Filt Rate - Afr Amer 214 mL/min (>60); Estimated Creatinine Clearance 184.11 ml/min; Globulin 4.5 g/dL (2.2-4.2); Glucose 89 mg/dL (74-106); Lipase 107 U/L (73-393); Potassium 3.7 mmol/L (3.5-5.1); Protein, Total 8.1 g/dL (6.4-8.2); Sodium Level 138 mmol/L (136-145)
[2020-12-17 09:40] VITALS: BP 139/84; PULSE 92; RESP 16; O2SAT 98
--- NOTE | 2020-12-17 09:42 | HP.PCM.HOS_ITS ---
HPI - General General Date of Admission: 12/17/20 HPI Narrative GERDA MCGHEE, is a 35 M who presents for detox from alcohol. Patient has been admitted multiple times for same reason, with his last visit being about 2 weeks ago. he drinks whiskey, wine or alcohol and his last drink was ~ 2am. He also has a history of seizures due to withdrawal. He complains of shakiness, sweats and pain radiating down his right leg due to sciatica. Review of systems was otherwise negative. Vitals in the ED were unremarkable, and CBC and BMP were also unremarkable. Serum alcohol level was 229 and urine tox was pending. He is being admitted to be managed for acute alcohol withdrawal. [facility] Medical History Anxiety CAD (coronary artery disease) Depression ETOH abuse GERD (gastroesophageal reflux disease) Hernia Hypertension Jaundice Kidney stones Seizures Smoker Home Medications baclofen 20 mg PO BID 11/02/20 [History Last Taken Unknown] lisinopril 40 mg PO DAILY 11/02/20 [History Last Taken Unknown] mirtazapine 15 mg PO QHS 11/22/20 [History Last Taken Unknown] Allergy/AdvReac Type Severity Reaction Status Date / Time Penicillins [PCN] AdvReac Unknown Verified 11/21/20 07:31 Family History Mother Emphysema of lung Father Hereditary spastic paraplegia Surgical History History of appendectomy Social History Smoking Status: Current every day smoker tobacco type: cigarettes ROS Constitutional Constitutional: Denies anorexia, change in weight, chills, fatigue, fever(s), malaise or weakness Eyes Eyes: Denies change in vision ENT HEENT: Denies dysphagia, headache(s), nasal congestion, nasal discharge or sore throat Cardiovascular Cardiovascular: Denies chest pain, dyspnea on exertion, edema, lightheadedness, orthopnea, palpitations, rapid heart rate or syncope Respiratory/Chest Respiratory/Chest: Denies cough, dyspnea, productive cough, shortness of breath at rest or shortness of breath with exertion Gastrointestinal Gastrointestinal: Denies abdominal pain, constipation, diarrhea, dyspepsia, nausea or vomiting Genitourinary Genitourinary: Denies burning urination, dysuria or urinary frequency Musculoskeletal Musculoskeletal: Denies arthralgias or back pain Neurologic Neurologic: Reports tremor(s); Denies abnormal speech, confusion, dizziness, focal weakness, headache(s), seizures, syncope or tingling Psychiatric Psychiatric: Denies anxiety or depression Endocrine Endocrinology: Denies change in body appearance Vital Signs Vital Signs Vital Signs: 12/17/20 08:13 12/17/20 09:40 Temperature 97 F L Temperature Source Oral Pulse Rate 112 H 92 Respiratory Rate 15 16 Blood Pressure 153/80 H 139/84 H Blood Pressure Mean 104 102 Pulse Ox 94 98 Oxygen Delivery Method Room Air Room Air Weight Weight: 194 lb 14.4 oz Body Mass Index (BMI) 28.8 Physical Exam Const alert, oriented x3 and no apparent distress General Appearance: cooperative HEENT normocephalic, head/scalp atraumatic, hearing grossly normal bilaterally and moist oral mucous membranes Eyes PERRL, EOMs intact bilaterally and conjunctivae normal Neck no lymphadenopathy, supple and no JVD Resp normal respiratory effort, no retractions, no use of accessory muscles and clear to auscultation bilaterally Cardio regular rate, regular rhythm, S1 normal heart sound, S2 normal heart sound and no murmurs GI normal to inspection, nondistended, normoactive bowel sounds, soft to palpation, non-tender and non-distended Extremity normal to inspection, full ROM and no clubbing, cyanosis or edema Peripheral Pulses: Yes pulses 2+ throughout Skin no rashes or lesions noted Neuro oriented x3 Sensorium / Orientation: awake and alert Psych affect normal Results Lab / Micro Data Result Diagrams: 12/17/20 08:15 12/17/20 08:15 Labs: Laboratory Results - last 24 hr 12/17/20 08:15: WBC 6.7, RBC 5.01, Hgb 14.4, Hct 43.3, MCV 86.4, MCH 28.7, MCHC 33.3, RDW Std Deviation 45.7 H, RDW Coeff of Srinivasa 14.4, Plt Count 372, MPV 10.3, Immature Gran % (Auto) 0.500, Neut % (Auto) 44.6 L, Lymph % (Auto) 44.3 H, [place] % (Auto) 8.6, Eos % (Auto) 1.2, Baso % (Auto) 0.8, Absolute Neuts (auto) 3.0, Absolute Lymphs (auto) 2.95, Nucleated RBC % 0 12/17/20 08:15: Sodium 138, Potassium 3.7, Chloride 104, Carbon Dioxide 26.0, Anion Gap 8, BUN 10, Creatinine 0.56 L, Estim Creat Clear Calc 184.11, Est GFR (MDRD) Af Amer 214, Est GFR (MDRD) Non-Af 177, BUN/Creatinine Ratio 18.0, Glucose 89, Calcium 8.3 L, Total Bilirubin 0.10 L, AST 25, ALT 45, Alkaline Phosphatase 112, Total Protein 8.1, Albumin 3.6, Globulin 4.5 H, Albumin/Globulin Ratio 0.8 L, Lipase 107 12/17/20 08:15: Ethyl Alcohol 229.0 Assessment & Plan Assessment/Plan (1) Alcohol withdrawal: QUALIFIERS: Complication of substance-induced condition: uncomp licated Qualified Code(s): F10.230 - Alcohol dependence with withdrawal, u ncomplicated (2) Alcohol dependence: QUALIFIERS: Substance use status: unspecified alcohol-induced disorder Qualified Code(s): F10.29 - Alcohol dependence with unspecified alcohol-induced disorder PLAN: #Acute alcohol withdrawal * admit to med surg * start on alcohol withdrawal protocol with phenobarbital * monitor CIWA score * multivite, thiamine and folic acid * #History of CAD: on statin and aspirin #Hypertension: on lisinopril #History of nicotine dependence * smokes one pack daily. counseled to quit. Nicotine patch 21mg daily DVT prophylaxis: low risk, encourage ambulation Charges/Coding Visit Charges Inpatient E&M: 61457 Init Hosp L3
[2020-12-17 09:54] LABS: Amphetamine Urine VISTA NEGATIVE (<1000 ng/mL); Barbiturate Urine VISTA NEGATIVE (< 200 ng/mL); Benzodiazepine Urine VISTA NEGATIVE (< 200 ng/mL); Cocaine Urine VISTA NEGATIVE (< 300 ng/mL); Ecstacy Urine VISTA NEGATIVE (< 500 ng/mL); Methadone Urine VISTA NEGATIVE (< 300 ng/mL); PCP Urine VISTA NEGATIVE (< 25 ng/mL); THC Urine VISTA NEGATIVE (< 50 ng/mL); Vista UDS pH Range 5
[2020-12-17 10:05] LABS: Magnesium 2.2 mg/dL (1.6-2.6)
[2020-12-17] MEDS: chlordiazePOXIDE 25 MG Capsule 50 MG PO (10:08)
[2020-12-17 10:09] VITALS: BP 141/76; PULSE 96; RESP 16; TEMP 36.4; O2SAT 97
--- NOTE | 2020-12-17 10:30 | CM.ED ---
OTF Note Referral Source: Case Find Referral Reason: BOYD VANESSA met with patient. He reports he has been in the [facility] program previously. He came to the ED for detox and [facility] program. He reports he has been on a 4 day phillips. Patient's last drink was this morning (12/17/20) at 2:00am. Patient was asked how much he drank and he said I can't recall. Patient is currently linked with [facility]. Patient reviewed the rules regarding [facility] program on [facility] and patient voiced agreement with [facility] rules. He reports he wants to get back into [facility]. SW called [facility] and left voice mail for Etienne Licea advising that patient is in the ED and in agreement to detox in the [facility] program. No further SW needs at this time. OTF remains available if needs arise. Plan: Boyd ASHRAF
[2020-12-17 12:21] VITALS: BMI 28.3
[2020-12-17 12:25] VITALS: BP 121/92; PULSE 92; RESP 18; TEMP 37.1; O2SAT 97
--- NOTE | 2020-12-17 12:27 | ADDICTION ---
This story writer met with PT to conduct ASAM, MSE, AUDIT assessments and to plan for d/c. PT A+Ox4 and participated actively. All assessments completed. PT plans to go to an in-patient residential treatment facility. This worker will work on finding a placement. DP will be completed once placement is located.
[2020-12-17] MEDS: Phenobarbital 32.4 MG Tablet 64.8 MG PO ×3 (12:35→20:45)
[2020-12-17] MEDS: Lisinopril 40 MG Tablet PO (12:35)
[2020-12-17] MEDS: LORazepam 1 MG Tablet 2 MG PO (12:35)
[2020-12-17] MEDS: Dicyclomine 10 MG Capsule 20 MG PO (12:36)
[2020-12-17] MEDS: Baclofen 10 MG Tablet 20 MG PO ×2 (16:35→20:46)
[2020-12-17 16:38] VITALS: BP 113/88; PULSE 107; RESP 18; O2SAT 95
[2020-12-17] MEDS: Ibuprofen 400 MG Tablet PO (17:09)
[2020-12-17] MEDS: Pantoprazole Sodium 20 MG Tablet PO (17:09)
[2020-12-17 20:42] VITALS: BP 117/85; PULSE 96; RESP 16; TEMP 36.2; O2SAT 98
[2020-12-18] MEDS: Phenobarbital 32.4 MG Tablet 64.8 MG PO ×6 (00:34→21:00)
[2020-12-18 04:20] VITALS: BP 136/92; PULSE 79; RESP 16; TEMP 36.4; O2SAT 99
--- NOTE | 2020-12-18 07:32 | PN.HOSP_ITS ---
Subjective Subjective Patient seen and examined. He has no complaints this morning and review of systems is otherwise stable. Objective Data Objective Data Vital Signs: Vital Signs Temp Pulse Resp BP Pulse Ox 97.6 F L 79 16 136/92 H 99 12/18/20 04:20 12/18/20 04:20 12/18/20 04:20 12/18/20 04:20 12/18/20 04:20 Oxygen Delivery Method Room Air Weight: 192 lb Body Mass Index (BMI) 28.3 Intake & Output: Intake and Output for Last 24 Hours 12/16/20 12/17/20 12/18/20 23:59 23:59 23:59 Intake Total 755 / 1255 500 / 500 Balance 755 / 1255 500 / 500 Lab / Micro Data Result Diagrams: 12/17/20 08:15 12/17/20 08:15 Labs: Laboratory Results - last 24 hr 12/17/20 08:15: WBC 6.7, RBC 5.01, Hgb 14.4, Hct 43.3, MCV 86.4, MCH 28.7, MCHC 33.3, RDW Std Deviation 45.7 H, RDW Coeff of Srinivasa 14.4, Plt Count 372, MPV 10.3, Immature Gran % (Auto) 0.500, Neut % (Auto) 44.6 L, Lymph % (Auto) 44.3 H, [place] % (Auto) 8.6, Eos % (Auto) 1.2, Baso % (Auto) 0.8, Absolute Neuts (auto) 3.0, Absolute Lymphs (auto) 2.95, Nucleated RBC % 0 12/17/20 08:15: Sodium 138, Potassium 3.7, Chloride 104, Carbon Dioxide 26.0, Anion Gap 8, BUN 10, Creatinine 0.56 L, Estim Creat Clear Calc 184.11, Est GFR (MDRD) Af Amer 214, Est GFR (MDRD) Non-Af 177, BUN/Creatinine Ratio 18.0, Glucose 89, Calcium 8.3 L, Total Bilirubin 0.10 L, AST 25, ALT 45, Alkaline Phosphatase 112, Total Protein 8.1, Albumin 3.6, Globulin 4.5 H, Albumin/Globulin Ratio 0.8 L, Lipase 107 12/17/20 08:15: Ethyl Alcohol 229.0 12/17/20 08:15: Magnesium 2.2 12/17/20 09:38: Urine Opiates Screen NEGATIVE, Urine Methadone Screen NEGATIVE, Ur Barbiturates Screen NEGATIVE, Ur Phencyclidine Scrn NEGATIVE, Ur Amphetamines Screen NEGATIVE, U Methamphetamin-MDMA NEGATIVE, U Benzodiazepines Scrn NEGATIVE, Urine Cocaine Screen NEGATIVE, U Cannabinoids Screen NEGATIVE, Ur Drug Screen Comment Physical Exam Const alert, oriented x3 and no apparent distress General Appearance: cooperative Exam Limitations: no limitations HEENT normocephalic, head/scalp atraumatic, hearing grossly normal bilaterally and moist oral mucous membranes Head and Scalp: normocephalic Eyes PERRL, EOMs intact bilaterally and conjunctivae normal Neck no lymphadenopathy, supple and no JVD Resp normal respiratory effort, no retractions, no use of accessory muscles and clear to auscultation bilaterally Cardio regular rate, regular rhythm, S1 normal heart sound, S2 normal heart sound and no murmurs GI normal to inspection, nondistended, normoactive bowel sounds, soft to palpation, non-tender and non-distended Extremity normal to inspection, full ROM and no clubbing, cyanosis or edema Peripheral Pulses: Yes pulses 2+ throughout Skin no rashes or lesions noted Neuro oriented x3 Sensorium / Orientation: awake and alert Psych affect normal Assessment & Plan Assessment/Plan (1) Alcohol withdrawal: QUALIFIERS: Complication of substance-induced condition: uncomplicated Qualified Code(s): F10.230 - Alcohol dependence with withdrawal, uncomplicated (2) Alcohol dependence: QUALIFIERS: Substance use status: unspecified alcohol-induced disorder Qualified Code(s): F10.29 - Alcohol dependence with unspecified alcohol-induced disorder PLAN: #Acute alcohol withdrawal * on alcohol withdrawal protocol with phenobarbital * on thiamine, multivite and folic acid * monitor CIWA score * #History of CAD: on statin and aspirin #Hypertension: on lisinopril #History of nicotine dependence * smokes one pack daily. counseled to quit. Nicotine patch 21mg daily DVT prophylaxis: low risk, encourage ambulation Charges/Coding Visit Charges Inpatient E&M: 87593 Subs Hosp L2
[2020-12-18 08:34] VITALS: BP 131/83; PULSE 87; RESP 18; TEMP 36.7; O2SAT 98
[2020-12-18] MEDS: Baclofen 10 MG Tablet 20 MG PO ×2 (08:38→21:00)
[2020-12-18] MEDS: Pantoprazole Sodium 20 MG Tablet PO (08:39)
[2020-12-18] MEDS: Thiamine Hydrochloride 100 MG Tablet PO (08:39)
[2020-12-18] MEDS: Folic Acid 1 MG Tablet PO (08:39)
[2020-12-18] MEDS: Lisinopril 40 MG Tablet PO (08:39)
[2020-12-18] MEDS: LORazepam 1 MG Tablet 2 MG PO ×3 (08:45→16:16)
[2020-12-18] MEDS: Ibuprofen 400 MG Tablet PO ×2 (08:47→21:04)
--- NOTE | 2020-12-18 11:04 | ADDICTION ---
This telegraphic typewriter repairer met with patient today. He reports that he is unsure of where he would like to go or if he wants to go to treatment. Clinician informed him she would give him time to decide prior to creating his DP. Clinician will discuss discharge planning at a later time when patient is ready.
[2020-12-18 12:21] VITALS: BP 134/88; PULSE 109; RESP 18; TEMP 36.5; O2SAT 99
--- NOTE | 2020-12-18 12:22 | ADDICTION ---
PT declined d/c planning noting that he will follow up if he feels that he needs it. This writer editor encouraged PT to schedule an appointment but PT declined again. He will discharge to home
[2020-12-18 16:11] VITALS: BP 134/90; PULSE 88; RESP 16; TEMP 37; O2SAT 97
[2020-12-18] MEDS: traZODone 100 MG Tablet PO (21:00)
[2020-12-18 22:00] VITALS: BP 139/80; PULSE 76; RESP 16; TEMP 36.8; O2SAT 98
[2020-12-19] MEDS: Phenobarbital 32.4 MG Tablet 64.8 MG PO ×5 (00:14→20:15)
[2020-12-19 04:40] VITALS: BP 136/83; PULSE 77; RESP 18; TEMP 36.6; O2SAT 98
[2020-12-19] MEDS: Thiamine Hydrochloride 100 MG Tablet PO (08:06)
[2020-12-19] MEDS: Folic Acid 1 MG Tablet PO (08:06)
[2020-12-19 08:10] VITALS: PULSE 104
--- NOTE | 2020-12-19 09:36 | ADDICTION ---
This automotive service writer attempted to meet with PT. PT did not rouse to 3x verbal queuing. [facility] staff will attempt to meet with PT at next visit on 12/20 to try to encourage discharge planning.
[2020-12-19] MEDS: LORazepam 1 MG Tablet 2 MG PO ×3 (10:41→20:16)
[2020-12-19] MEDS: Gabapentin 300 MG Capsule PO ×2 (10:41→20:15)
[2020-12-19] MEDS: Lisinopril 40 MG Tablet PO (10:42)
[2020-12-19] MEDS: Baclofen 10 MG Tablet 20 MG PO ×2 (10:42→20:15)
[2020-12-19] MEDS: Pantoprazole Sodium 20 MG Tablet PO (10:43)
--- NOTE | 2020-12-19 10:51 | NURSING ---
STATES MENU FOR TOMORROW COMPLETE FOR BREAKFAST & LUNCH. THIS NURSE NOTICED THAT EVERY ITEM ON MENU IS CIRCLED.
--- NOTE | 2020-12-19 14:33 | PN.HOSP_ITS ---
Subjective Subjective Patient seen and examined. He had no active complaints and review of symptoms otherwise negative. He has remained hemodynamically stable. Objective Data Objective Data Vital Signs: Vital Signs Temp Pulse Resp BP Pulse Ox 97.9 F 104 H 18 136/83 H 98 12/19/20 04:40 12/19/20 08:10 12/19/20 04:40 12/19/20 04:40 12/19/20 04:40 Oxygen Delivery Method Room Air Weight: 192 lb Body Mass Index (BMI) 28.3 Intake & Output: Intake and Output for Last 24 Hours 12/17/20 12/18/20 12/19/20 23:59 23:59 23:59 Intake Total 755 / 1255 500 / 500 Balance 755 / 1255 500 / 500 Lab / Micro Data Result Diagrams: 12/17/20 08:15 12/17/20 08:15 Physical Exam Const alert, oriented x3 and no apparent distress General Appearance: cooperative Exam Limitations: no limitations HEENT normocephalic, head/scalp atraumatic, hearing grossly normal bilaterally and moist oral mucous membranes Head and Scalp: normocephalic Eyes PERRL, EOMs intact bilaterally and conjunctivae normal Neck no lymphadenopathy, supple and no JVD Resp normal respiratory effort, no retractions, no use of accessory muscles and clear to auscultation bilaterally Cardio regular rate, regular rhythm, S1 normal heart sound, S2 normal heart sound and no murmurs GI normal to inspection, nondistended, normoactive bowel sounds, soft to palpation, non-tender and non-distended Extremity normal to inspection, full ROM and no clubbing, cyanosis or edema Peripheral Pulses: Yes pulses 2+ throughout Skin no rashes or lesions noted Neuro oriented x3 Sensorium / Orientation: awake and alert Psych affect normal Assessment & Plan Assessment/Plan (1) Alcohol withdrawal: QUALIFIERS: Complication of substance-induced condition: uncomplicated Qualified Code(s): F10.230 - Alcohol dependence with withdrawal, uncomplicated (2) Alcohol dependence: QUALIFIERS: Substance use status: unspecified alcohol-induced disorder Qualified Code(s): F10.29 - Alcohol dependence with unspecified alcohol-induced disorder PLAN: #Acute alcohol withdrawal * on alcohol withdrawal protocol with phenobarbital * on thiamine, multivite and folic acid * monitor CIWA score * #History of CAD: on statin and aspirin #Hypertension: on lisinopril #History of nicotine dependence * smokes one pack daily. counseled to quit. Nicotine patch 21mg daily DVT prophylaxis: low risk, encourage ambulation Charges/Coding Visit Charges Inpatient E&M: 04856 Subs Hosp L2
[2020-12-19 15:53] VITALS: BP 111/79; PULSE 95; RESP 18; TEMP 36.9
[2020-12-19] MEDS: Ibuprofen 400 MG Tablet PO (15:59)
[2020-12-19 20:05] VITALS: BP 116/73; PULSE 100; RESP 18; TEMP 36.7; O2SAT 98
[2020-12-19] MEDS: traZODone 100 MG Tablet PO (20:16)
[2020-12-20 02:30] VITALS: BP 112/74; PULSE 87; RESP 18; TEMP 36.8; O2SAT 97
[2020-12-20] MEDS: Phenobarbital 32.4 MG Tablet 64.8 MG PO (02:35)
[2020-12-20] MEDS: Folic Acid 1 MG Tablet PO (07:42)
[2020-12-20] MEDS: Thiamine Hydrochloride 100 MG Tablet PO (07:42)
[2020-12-20] MEDS: Baclofen 10 MG Tablet 20 MG PO (07:42)
[2020-12-20] MEDS: Pantoprazole Sodium 20 MG Tablet PO (07:43)
[2020-12-20] MEDS: Lisinopril 40 MG Tablet PO (07:43)
[2020-12-20 08:21] VITALS: BP 141/104; PULSE 104; RESP 18; TEMP 36.4; O2SAT 98
[2020-12-20] MEDS: Gabapentin 300 MG Capsule PO (08:25)
--- NOTE | 2020-12-20 08:32 | DS.PCM_ITS ---
Providers Date of Admission: 12/17/20 Primary Care Physician: No Primary Care Phys Reason For Visit: ACUTE ALCOHOL WITHDRAWAL Diagnosis Discharge Diagnosis (1) Alcohol withdrawal: Status: Chronic Code(s): F10.239 - Alcohol dependence with withdrawal, unspecified Qualifiers: Complication of substance-induced condition: uncomplicated Qualified Code(s): F10.230 - Alcohol dependence with withdrawal, uncomplicated (2) Alcohol dependence: Status: Acute Code(s): F10.20 - Alcohol dependence, uncomplicated Qualifiers: Substance use status: unspecified alcohol-induced disorder Qualified Code(s): F10.29 - Alcohol dependence with unspecified alcohol-induced disorder Medications at Discharge Home Medications baclofen 20 mg PO BID 11/02/20 lisinopril 40 mg PO DAILY 11/02/20 mirtazapine 15 mg PO QHS 11/22/20 Hospital Course Operations None Procedures None Summary of Care Provided Minutes Spent on Discharge: 40 Hospital Course: Patient is a 35-year-old male with a past medical history of CAD, alcohol abuse, anxiety and GERD as well as depression who was admitted to the ED on 12/17/2020 for alcohol detox and alcohol withdrawal. His last visit was just about 2 weeks prior to this admission. His last drink was around 2 AM he usually consumed whiskey or wine. He had a history of seizures due to withdrawal and he complained of shakiness, sweats and pain radiating down his right leg. Serum alcohol level was 299 and urine tox was otherwise negative. He was admitted to manage for acute alcohol withdrawal. Was started on alcohol withdraw al protocol with phenobarbital. Patient tolerated 3-day detox process well and had no complaints. He was discharged home on 12/20/2020. Patient was [facility] but refused as he said the services they offer did not work for him and he had the tubes to help him quit drinking on his own. 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 Patient was given a return to work form which stated that his last dose of barbiturates was 2:35 AM on 12/20/2020 in the hospital. Patient seen and examined prior to discharge. He had no complaints. Review of systems otherwise negative. Labs and vitals reviewed. Home medication reviewed and reconciled. Physical Exam Const alert, oriented x3 and no apparent distress General Appearance: cooperative, comfortable and well kempt Orientation / Consciousness: awake, oriented to person, oriented to place and oriented to time Exam Limitations: no limitations HEENT normocephalic, head/scalp atraumatic, hearing grossly normal bilaterally and moist oral mucous membranes Eyes PERRL, EOMs intact bilaterally and conjunctivae normal Neck no lymphadenopathy, supple and no JVD Resp normal respiratory effort, no retractions, no use of accessory muscles and clear to auscultation bilaterally Cardio regular rate, regular rhythm, S1 normal heart sound, S2 normal heart sound and no murmurs GI normal to inspection, nondistended, normoactive bowel sounds, soft to palpation, non-tender and non-distended Extremity normal to inspection, full ROM and no clubbing, cyanosis or edema Skin no rashes or lesions noted Neuro oriented x3 Sensorium / Orientation: awake and alert Psych affect normal Weight / BMI Weight Weight: 192 lb Body Mass Index (BMI) 28.3 ABG / Lab / Microbiology Data Result Diagrams: 12/17/20 08:15 12/17/20 08:15 D/C Instructions Discharge Diet: Low fat / Low cholesterol Discharge Activity: Return to Normal Activity Meaningful Use Info Meaningful Use Diagnoses (Choose all that apply): None applicable Discharge Plan Admission Admit Date/Time: 12/17/20 09:49 Primary Reason for Your Visit: acute alcohol withdrawal Attending Provider: Toya Gloria Primary Care Provider: Care Physician,Mela Primary Instructions Forms: Work / School Excuse Patient Instructions: Addiction: Getting Help, Addiction Recovery Counseling Discharge Orders/Prescriptions Prescriptions: Continued baclofen 20 mg tablet 20 mg PO BID RF: 0 lisinopril 40 mg tablet 40 mg PO DAILY RF: 0 mirtazapine 15 mg tablet 15 mg PO QHS RF: 0 Referrals / Follow Up: Care Physician,No Primary [Primary Care Provider] - Disposition Disposition (needs filled in before D/C Order can be placed): Home, Self Care Charges/Coding Visit Charges Inpatient E&M: 52320 Disch Hosp
== END 2020-12-20 10:41 | disposition home or self-care (01) | DRG 775 ==
LOC: ED 09:26 → MS3 10:41
PROVIDERS: Admitting Provider Student in an Organized Health Care Education/Training Program; Emergency Provider Emergency Medicine; Visit Provider Student in an Organized Health Care Education/Training Program
DX: F10.230 Alcohol dependence with withdrawal, uncomplicated (principal); G11.4 Hereditary spastic paraplegia; F17.210 Nicotine dependence, cigarettes, uncomplicated; Y90.7 Blood alcohol level of 200-239 mg/100 ml; I25.10 Atherosclerotic heart disease of native coronary artery without angina pectoris; I10 Essential (primary) hypertension; Z79.899 Other long term (current) drug therapy
CPT/HCPCS: 80053; 80307; 82077; 83690; 83735; 85025; 99285; 99406; J7030; A4216; J2405

== ENCOUNTER 2021-03-13 01:33 | Inpatient (IN) | payer MEDICAID, SELFPAY ==
[2021-03-13] VITALS (7 sets, daily range): BP systolic 126–153; BP diastolic 73–108; PULSE 92–118; RESP 14–19; TEMP 36.6–37.3; O2SAT 93–99; BMI 29.5; BMI 28.0
[2021-03-13 02:03] LABS: Absolute Lymphocyte Count 2.61 X10^3/uL (0.83-4.51); Absolute Neutrophil Count 2.3 X10^3/uL (2.0-7.7); Basophil# 0.05 X10^3/uL; Basophil% 0.9 % (0-1); Eosinophil# 0.04 X10^3/uL; Eosinophils% 0.7 % (0-5); Hematocrit 44.1 % (40-54); Hemoglobin 15.4 g/dL (13.0-16.5); Lymphocyte # 2.61 X10^3/ul (0.83-4.51); Lymphocyte % 48.2 % (19-41); Mean Corp Hgb Conc 34.9 g/dL (32-36); Mean Corpuscular Hgb 30.7 pg (27.0-32.0); Mean Platelet Vol. 9.4 fl (6.2-12.0); Monocyte# 0.39 X10^3/uL; Monocyte% 7.2 % (0-10); NRBC Flagged by Analyzer 0 % (0-5); Neutrophil # 2.31 X10^3/uL (2.7-7.7); Neutrophil % 42.8 % (47-70); Platelet Count 256 K/mm3 (150-450); RBC Distribution Width CV 13.9 % (11.6-14.6); RBC Distribution Width SD 44.8 fl (35.1-43.9); Red Blood Count 5.01 M/mm3 (4.6-6.2); White Blood Count 5.4 K/mm3 (4.4-11.0)
[2021-03-13 02:20] LABS: International Normalized Ratio 0.9
[2021-03-13 02:28] LABS: ALB/GLOB Ratio 0.8 RATIO (0.9-2.4); AST(SGOT) 147 U/L (15-37); Alanine Aminotransfer ALT/SGPT 159 U/L (16-61); Albumin, Serum 3.5 g/dL (3.2-5.0); Alkaline Phosphatase 108 U/L (45-117); Anion Gap 9 (5-15); BUN 8 mg/dL (7-18); BUN/Creat Ratio 11.6 RATIO (10-20); Calcium,Total 8.7 mg/dL (8.5-10.1); Chloride 104 mmol/L (98-107); Creatinine, Serum 0.69 mg/dL (0.70-1.30); EST Glomerular Filtration Rate 139 mL/min (>60); Est Glom Filt Rate - Afr Amer 168 mL/min (>60); Globulin 4.6 g/dL (2.2-4.2); Glucose 89 mg/dL (74-106); Potassium 3.7 mmol/L (3.5-5.1); Protein, Total 8.1 g/dL (6.4-8.2); Sodium Level 137 mmol/L (136-145)
[2021-03-13 02:36] LABS: Amphetamine Urine VISTA NEGATIVE (<1000 ng/mL); Barbiturate Urine VISTA NEGATIVE (< 200 ng/mL); Benzodiazepine Urine VISTA NEGATIVE (< 200 ng/mL); Cocaine Urine VISTA NEGATIVE (< 300 ng/mL); Ecstacy Urine VISTA NEGATIVE (< 500 ng/mL); Methadone Urine VISTA NEGATIVE (< 300 ng/mL); PCP Urine VISTA NEGATIVE (< 25 ng/mL); THC Urine VISTA NEGATIVE (< 50 ng/mL); Vista UDS pH Range 4
[2021-03-13] MEDS: LORazepam 1 MG Tablet PO ×3 (02:54→21:40)
--- NOTE | 2021-03-13 02:55 | ED.RN ---
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 PT MEDICATED PER DR. KUMAR VERBAL ORDER. PT CHANGED OUT OF HIS GOWN AND REFUSING TO CHANGE BACK. AWARE.
--- NOTE | 2021-03-13 03:16 | EDS_ITS ---
HPI History of Present Illness Chief Complaint: ETOH Intox Detail of Chief Complaint: Requesting detox for his alcohol dependency Informant: patient Onset/Context/Timing Onset: Month(s) (Consuming 20 beers to 1/2 gallon of wine/liquor per day) Context: Sudden Onset Timing: Continuous Quality: Heavy alcohol consumption Location: Lives alone Current Severity: Severe Maximum Severity: Severe Worsened by: Unemployed, lives by himself, difficulty coping Relieved by: Nothing Associated Symptoms Associated Symptoms: Positive for tremor and palpatations; Negative for vomiting*, diarrhea*, fever*, rash*, seizure, change in mental status, trauma, sex for drugs*, suicidal ideation, homicidal ideation and *HIV Risk Factors:Consider testing if last test > 6 months Narrative Narrative: Patient is a 36-year-old male with history of alcohol dependency with alcohol withdrawal who presents for detox. His last admission to the detox unit was in December. He states he is having trouble functioning at work. He is lost his job. He does smoke. He has been drinking heavily. He states he lives alone and has no support. He has not had any suicidal homicidal thoughts. He denies drug usage. He denies headache, visual, ocular auditory symptoms. He denies cardiac respiratory symptoms. He denies symptoms. He states he drinks to get numb he is able to cope. He states he has difficulty with time orientation. Prior similar symptoms: Yes Recent Illness/Hospitalization: Yes (December) [facility] Medical History Admitted to alcohol detoxification center Alcohol dependence Alcohol intoxication Alcohol withdrawal Anxiety CAD (coronary artery disease) Depression ETOH abuse GERD (gastroesophageal reflux disease) Hernia Hypertension Jaundice Kidney stones Seizures Smoker Home Medications baclofen 20 mg PO BID 11/02/20 [History Last Taken Unknown] lisinopril 40 mg PO DAILY 11/02/20 [History Last Taken Unknown] mirtazapine 15 mg PO QHS 11/22/20 [History Last Taken Unknown] Allergy/AdvReac Type Severity Reaction Status Date / Time Penicillins [PCN] AdvReac Unknown Verified 03/13/21 01:42 Family History Mother Emphysema of lung Father Hereditary spastic paraplegia Surgical History History of appendectomy Social History (Updated 03/13/21 @ 03:[address] Sahil Waterman MD) household members: none housing: apartment Smoking Status: Current every day smoker tobacco type: cigarettes alcohol intake: current alcohol intake frequency: other Alcohol type: beer, wine and hard liquor details: Documented in HPI substance use type: does not use ROS ROS ED Constitutional Constitutional ED: Reports sweats; Denies chills, fever(s), subjective or weight loss Eyes Eyes: Denies blurry vision, change in vision or diplopia ENT ENT ED: Denies ear pain, rhinorrhea or sore throat Cardiovascular Cardiovascular: Reports racing heartbeat; Denies chest pain, orthopnea or palpitations Respiratory/Chest Respiratory/Chest: Reports cough; Denies dyspnea, dyspnea on exertion, orthopnea or sputum Gastrointestinal Gastrointestinal: Reports nausea; Denies abdominal pain, diarrhea, melena or vomiting Genitourinary Genitourinary ED: Denies dysuria or urinary frequency Musculoskeletal Musculoskeletal: Denies arthralgias, back pain, myalgias or neck pain Integumentary Denies rash Neurologic Neurologic: Denies headache(s), paresthesias or weakness Psychiatric Psychiatric: Reports anxiety and depression; Denies suicidal ideation or suicidal thoughts Endocrine Endocrinology: Denies polydipsia, polyphagia or polyuria Hematologic/Lymphatic Hematologic/Lymphatic: Denies easy bleeding or easy bruising EXAM Physical Exam Const Vital Signs: 03/13/21 01:34 Temperature 98.3 F Temperature Source Temporal Pulse Rate 112 H Respiratory Rate 19 H Blood Pressure 153/108 H Blood Pressure Mean 123 Blood Pressure Source Monitor Blood Pressure Position Sitting Blood Pressure Location Right Arm Pulse Ox 93 Oxygen Delivery Method Room Air Positive well nourished, well developed, obese and unkempt General Appearance ED: unkempt and well developed; Negative for pallor Nutritional Appearance: obese HEENT Reports TM's clear and moist mucous membranes HEENT Narrative: Head is normocephalic. Nares patent. Posterior pharynx unremarkable. atraumatic Tympanic Membrane ED: Yes TM's clear Eyes PERRL and EOMs intact bilaterally General Eye ED: Negative for pale conjunctiva or scleral icterus Neck no lymphadenopathy, supple and no JVD Lymph Lymphatic: no lymphadenopathy noted and lymphadenopathy Chest Wall inspection of chest normal and palpation of chest normal Resp normal respiratory effort and clear to auscultation bilaterally Cardio regular rhythm, S1 normal heart sound, S2 normal heart sound and no murmurs Rate: tachycardic GI soft to palpation, non-tender, non-distended and no masses Neuro oriented x3, CN's II-XII intact bilaterally and no sensory deficits noted Jewell Coma Scale: document GCS findings Spontaneous Obeys Commands Oriented 15 Sensorium / Orientation: alert Speech: speech normal Motor Exam: strength 5/5 throughout; Negative for muscle tone abnormal or movement abnormality noted Psych Appearance: unkempt Attitude: No belligerent, No agitated, No aggressive and No hostile Mood & Affect: depressed; Negative for tearful Skin General Skin Exam: Negative for jaundice or pallor Lesions: no lesions Rashes: no rashes MDM MDM MDM Narrative Medical decision making narrative: Work-up was initiated for admission to the addiction medicine service. Since he has history of cirrhosis, jaundice, bruising easily blood work was obtained prior to calling hospitalist. Since he is not hyperreflexic has no clonus he was not treated with phenobarb. He started to become anxious and was given p.o. Ativan. Lab Data Attestation: I reviewed the patient's lab results. Lab results narrative: CBC is unremarkable. PT/INR is normal. Comprehensive metabolic panel was marked for elevated AST and ALT. Tox screen is negative. Alcohol is 290. Labs: Laboratory Results - last 24 hr 03/13/21 03/13/21 03/13/21 01:55 01:55 01:55 WBC 5.4 RBC 5.01 Hgb 15.4 Hct 44.1 MCV 88.0 MCH 30.7 MCHC 34.9 RDW Std Deviation 44.8 H RDW Coeff of Srinivasa 13.9 Plt Count 256 MPV 9.4 Immature Gran % (Auto) 0.200 Neut % (Auto) 42.8 L Lymph % (Auto) 48.2 H [place] % (Auto) 7.2 Eos % (Auto) 0.7 Baso % (Auto) 0.9 Absolute Neuts (auto) 2.3 Absolute Lymphs (auto) 2.61 Nucleated RBC % 0 PT 12.0 INR 0.9 Sodium 137 Potassium 3.7 Chloride 104 Carbon Dioxide 24.0 Anion Gap 9 BUN 8 Creatinine 0.69 L Estim Creat Clear Calc 148.00 Est GFR (MDRD) Af Amer 168 Est GFR (MDRD) Non-Af 139 BUN/Creatinine Ratio 11.6 Glucose 89 Calcium 8.7 Total Bilirubin 0.40 AST 147 H ALT 159 H Alkaline Phosphatase 108 Total Protein 8.1 Albumin 3.5 Globulin 4.6 H Albumin/Globulin Ratio 0.8 L Urine Opiates Screen Urine Methadone Screen Ur Barbiturates Screen Ur Phencyclidine Scrn Ur Amphetamines Screen U Methamphetamin-MDMA U Benzodiazepines Scrn Urine Cocaine Screen U Cannabinoids Screen Ur Drug Screen Comment Ethyl Alcohol 03/13/21 03/13/21 01:55 02:15 WBC RBC Hgb Hct MCV MCH MCHC RDW Std Deviation RDW Coeff of Srinivasa Plt Count MPV Immature Gran % (Auto) Neut % (Auto) Lymph % (Auto) [place] % (Auto) Eos % (Auto) Baso % (Auto) Absolute Neuts (auto) Absolute Lymphs (auto) Nucleated RBC % PT INR Sodium Potassium Chloride Carbon Dioxide Anion Gap BUN Creatinine Estim Creat Clear Calc Est GFR (MDRD) Af Amer Est GFR (MDRD) Non-Af BUN/Creatinine Ratio Glucose Calcium Total Bilirubin AST ALT Alkaline Phosphatase Total Protein Albumin Globulin Albumin/Globulin Ratio Urine Opiates Screen NEGATIVE Urine Methadone Screen NEGATIVE Ur Barbiturates Screen NEGATIVE Ur Phencyclidine Scrn NEGATIVE Ur Amphetamines Screen NEGATIVE U Methamphetamin-MDMA NEGATIVE U Benzodiazepines Scrn NEGATIVE Urine Cocaine Screen NEGATIVE U Cannabinoids Screen NEGATIVE Ur Drug Screen Comment Ethyl Alcohol 290.0 Discharge Plan Dx/Rx/DC Orders Clinical Impression: Alcohol dependence with acute alcoholic intoxication, Depression, Sinus tachycardia Disposition Disposition: Acute Care Hospital [facility]
--- NOTE | 2021-03-13 04:04 | PCM.HP.STD ---
[facility] - General General Date of Admission: 03/13/21 Date of Service: 03/13/21 Chief Complaint: requesting alcohol detox HPI Narrative GERDA MCGHEE, is a 36 M who presents seeking alcohol withdrawal treatment. Patient was last admitted in December and was discharged but then immediately started drinking again. Patient states that he would either drink 25 beers or about a gallon of liquor per day. Liquor would primarily consist of bourbon but may change it up to vodka. Patient states that he starts getting shaky shortly after stopping drinking. He has had a history of alcohol withdrawal seizures and a history of hallucinations. No hallucinations at present. [facility] Medical History Admitted to alcohol detoxification center Alcohol dependence Alcohol intoxication Alcohol withdrawal Anxiety CAD (coronary artery disease) Depression ETOH abuse GERD (gastroesophageal reflux disease) Hernia Hypertension Jaundice Kidney stones Seizures Smoker Home Medications baclofen 20 mg PO BID 11/02/20 [History Last Taken Unknown] lisinopril 40 mg PO DAILY 11/02/20 [History Last Taken Unknown] mirtazapine 15 mg PO QHS 11/22/20 [History Last Taken Unknown] Allergy/AdvReac Type Severity Reaction Status Date / Time Penicillins [PCN] AdvReac Unknown Verified 03/13/21 01:42 Family History (Updated 03/13/21 @ 04:[address] Ishan Couch DO) Mother Emphysema of lung Father Hereditary spastic paraplegia Other Alcoholism in family member Surgical History History of appendectomy Social History household members: none housing: apartment Smoking Status: Current every day smoker tobacco type: cigarettes alcohol intake: current alcohol intake frequency: other Alcohol type: beer, wine and hard liquor details: Documented in [facility] substance use type: does not use ROS ROS Narrative Positive for abdominal pain. Patient states that he does have anxiety and thinks he may be borderline autistic. States that he has these nervous tics where he will have to touch his tenriism and then extend his arm to help calm himself. States that other times he does self-harm where he punches himself in the face or rammed his head against an object. Denies any suicidal ideation. All review of systems were negative except as mentioned above in the history of present illness and the other review of systems. Vital Signs Vital Signs Vital Signs: 03/13/21 01:34 Temperature 36.8 C Temperature Source Temporal Pulse Rate 112 H Respiratory Rate 19 H Blood Pressure 153/108 H Blood Pressure Mean 123 Blood Pressure Source Monitor Blood Pressure Position Sitting Blood Pressure Location Right Arm Pulse Ox 93 Oxygen Delivery Method Room Air Weight Weight: 90.6 kg Body Mass Index (BMI) 29.5 Physical Exam Const alert General Appearance: cooperative HEENT normocephalic Resp normal respiratory effort, no retractions, no use of accessory muscles and clear to auscultation bilaterally Cardio regular rate, regular rhythm, S1 normal heart sound and S2 normal heart sound GI normal to inspection, nondistended, normoactive bowel sounds, soft to palpation, non-tender and non-distended Extremity normal to inspection Neuro Sensorium / Orientation: awake and alert Psych Mood & Affect: depressed and anxious Results Lab / Micro Data Attestation: I reviewed the patient's lab results. Result Diagrams: 03/13/21 01:55 03/13/21 01:55 Labs: Laboratory Results - last 24 hr 03/13/21 01:55: WBC 5.4, RBC 5.01, Hgb 15.4, Hct 44.1, MCV 88.0, MCH 30.7, MCHC 34.9, RDW Std Deviation 44.8 H, RDW Coeff of Srinivasa 13.9, Plt Count 256, MPV 9.4, Immature Gran % (Auto) 0.200, Neut % (Auto) 42.8 L, Lymph % (Auto) 48.2 H, [place] % (Auto) 7.2, Eos % (Auto) 0.7, Baso % (Auto) 0.9, Absolute Neuts (auto) 2.3, Absolute Lymphs (auto) 2.61, Nucleated RBC % 0 03/13/21 01:55: PT 12.0, INR 0.9 03/13/21 01:55: Sodium 137, Potassium 3.7, Chloride 104, Carbon Dioxide 24.0, Anion Gap 9, BUN 8, Creatinine 0.69 L, Estim Creat Clear Calc 148.00, Est GFR (MDRD) Af Amer 168, Est GFR (MDRD) Non-Af 139, BUN/Creatinine Ratio 11.6, Glucose 89, Calcium 8.7, Total Bilirubin 0.40, AST 147 H, ALT 159 H, Alkaline Phosphatase 108, Total Protein 8.1, Albumin 3.5, Globulin 4.6 H, Albumin/Globulin Ratio 0.8 L 03/13/21 01:55: Ethyl Alcohol 290.0 03/13/21 02:15: Urine Opiates Screen NEGATIVE, Urine Methadone Screen NEGATIVE, Ur Barbiturates Screen NEGATIVE, Ur Phencyclidine Scrn NEGATIVE, Ur Amphetamines Screen NEGATIVE, U Methamphetamin-MDMA NEGATIVE, U Benzodiazepines Scrn NEGATIVE, Urine Cocaine Screen NEGATIVE, U Cannabinoids Screen NEGATIVE, Ur Drug Screen Comment Assessment & Plan Assessment/Plan (1) Alcohol dependence with acute alcoholic intoxication: QUALIFIERS: Complication of substance-induced condition: uncomplicated Qualified Code(s): F10.220 - Alcohol dependence with intoxication, uncomplicated PLAN: 1. Acute alcohol withdrawal No present symptoms but patient just last drank around 2300 03/12/2021. Plan is for phenobarbital taper as well as other medications to help him with other somatic complaints with his withdrawal. 2. Anxiety Likely complicated by other psychiatric illnesses not otherwise specified. Patient will have as needed lorazepam to help him with severe anxiety as his psychiatric illness is complicated his prior admissions. Patient during prior admissions had been threatening though never caused any physical harm to any staff. I informed patient that if he had all friends to staff in any way shape or form that he will be discharged. He expressed understanding for that and was apologetic for his previous behavior. I stressed to him that we are here to help him but will not tolerate any aggressive behavior. He states that he will comply. 3. VTE prophylaxis: Early ambulation. Low risk not indicated Charges/Coding Visit Charges Inpatient E&M: 35425 Init Hosp L2
[2021-03-13] MEDS: Dicyclomine 10 MG Capsule 20 MG PO (05:13)
[2021-03-13] MEDS: Phenobarbital 32.4 MG Tablet 64.8 MG PO ×5 (05:13→21:41)
[2021-03-13] MEDS: Gabapentin 300 MG Capsule PO ×2 (05:13→12:30)
[2021-03-13] MEDS: Ibuprofen 600 MG Tablet PO (05:14)
--- NOTE | 2021-03-13 07:17 | PCM.PN.HOSP ---
Subjective Subjective Patient is having alcohol withdrawal symptoms including tremors shaking, generalized muscle aches and pain. He has history of alcohol withdrawal seizure, last 1 in September 2020. Drinks alcohol whiskey for last 20 years started age of 15- 16 years Objective Data Objective Data Vital Signs: Vital Signs Temp Pulse Resp BP Pulse Ox 98 F 110 H 16 126/73 H 94 03/13/21 05:03 03/13/21 05:03 03/13/21 05:03 03/13/21 05:03 03/13/21 05:03 Oxygen Delivery Method Room Air Weight: 192 lb 14.472 oz Body Mass Index (BMI) 28.0 Intake & Output: Intake and Output for Last 24 Hours 03/11/21 03/12/21 03/13/21 23:59 23:59 23:59 Intake Total 500 / 500 Balance 500 / 500 Lab / Micro Data Result Diagrams: 03/13/21 01:55 03/13/21 01:55 Labs: Laboratory Results - last 24 hr 03/13/21 01:55: WBC 5.4, RBC 5.01, Hgb 15.4, Hct 44.1, MCV 88.0, MCH 30.7, MCHC 34.9, RDW Std Deviation 44.8 H, RDW Coeff of Srinivasa 13.9, Plt Count 256, MPV 9.4, Immature Gran % (Auto) 0.200, Neut % (Auto) 42.8 L, Lymph % (Auto) 48.2 H, [place] % (Auto) 7.2, Eos % (Auto) 0.7, Baso % (Auto) 0.9, Absolute Neuts (auto) 2.3, Absolute Lymphs (auto) 2.61, Nucleated RBC % 0 03/13/21 01:55: PT 12.0, INR 0.9 03/13/21 01:55: Sodium 137, Potassium 3.7, Chloride 104, Carbon Dioxide 24.0, Anion Gap 9, BUN 8, Creatinine 0.69 L, Estim Creat Clear Calc 148.00, Est GFR (MDRD) Af Amer 168, Est GFR (MDRD) Non-Af 139, BUN/Creatinine Ratio 11.6, Glucose 89, Calcium 8.7, Total Bilirubin 0.40, AST 147 H, ALT 159 H, Alkaline Phosphatase 108, Total Protein 8.1, Albumin 3.5, Globulin 4.6 H, Albumin/Globulin Ratio 0.8 L 03/13/21 01:55: Ethyl Alcohol 290.0 03/13/21 02:15: Urine Opiates Screen NEGATIVE, Urine Methadone Screen NEGATIVE, Ur Barbiturates Screen NEGATIVE, Ur Phencyclidine Scrn NEGATIVE, Ur Amphetamines Screen NEGATIVE, U Methamphetamin-MDMA NEGATIVE, U Benzodiazepines Scrn NEGATIVE, Urine Cocaine Screen NEGATIVE, U Cannabinoids Screen NEGATIVE, Ur Drug Screen Comment Physical Exam Narrative History of jaundice in the past. But no GI bleed General: Alert, Oriented x3, Cooperative HEENT: Atraumatic, PERRLA, EOMI, Normocephalic Oral: No Gingival or Mucosal Lesions/ Ulcerations Neck: Supple, No JVD, Negative Carotid Bruits Lungs: Air entry equal in bilateral lung bases. No crepitation/rhonchi Cardiovascular: Regular rate, Regular Rhythm, Normal S1, Normal S2, No murmurs Abdomen: Bowel Sounds Present, Soft, Non Tender, Non-Distended : No renal angle tenderness. No suprapubic tenderness. Extremities: No edema, Capillary Refill Less than 3 Seconds Skin: No rashes, No breakdown Musculoskeletal: No Tenderness to Palpation of Joints or Extremities Neurological: Cranial nerves II-XII grossly intact, DTR 2+/4 and Symmetrical, Neuro grossly intact Psych/Mental Status: Normal Affect, Appropriate. Assessment & Plan Assessment/Plan (1) Alcohol dependence with acute alcoholic intoxication: QUALIFIERS: Complication of substance-induced condition: uncomplicated Qualified Code(s): F10.220 - Alcohol dependence with intoxication, uncomplicated PLAN: 1. Acute alcohol withdrawal with history of chronic alcohol use, dependence and tolerance: Patient is having withdrawal symptoms. On phenobarbital along with other adjunctive medications to control his withdrawal symptoms. 2. Acute on chronic alcoholic hepatitis. Transaminases ALT and AST are elevated. Alkaline phosphatase normal. Patient has history of jaundice in the past therefore he had chronic alcoholic redness. Alcohol cessation advised. Monitor liver chemistry. 3. Anxiety syndrome: On as needed lorazepam to help with some anxiety. VTE prophylaxis: Early ambulation. Low risk not indicated Charges/Coding Visit Charges Inpatient E&M: 83805 Subs Hosp L2
[2021-03-13] MEDS: Folic Acid 1 MG Tablet PO (08:39)
[2021-03-13] MEDS: hydrOXYzine PAM 25 MG Capsule 50 MG PO (08:39)
[2021-03-13] MEDS: Thiamine Hydrochloride 100 MG Tablet PO (08:39)
[2021-03-13] MEDS: Lisinopril 40 MG Tablet PO (08:43)
[2021-03-13] MEDS: Baclofen 10 MG Tablet 20 MG PO ×2 (08:43→21:40)
--- NOTE | 2021-03-13 09:56 | CASEMGMT ---
Social Work Note Pt is RAMP pt. SW placed a call to Rhiannon, Addiction Therapist, to update on RAMP admission. Cornelia Rhodes PUMP RUNNER, BILLET INSPECTOR
--- NOTE | 2021-03-13 12:30 | ADDICTION ---
This publicity writer met with PT to conduct ASAM, MSE, AUDIT assessments and to plan for d/c. PT A+Ox4 and participated actively. All assessments completed, faxed to [facility] and placed in PT's chart. PT would like residential treatment. Clinician is working on finding a dual diagnosis facility due to PT's trauma hx and repeated relapse hx.
[2021-03-13] MEDS: Mirtazapine 15 MG Tablet PO (21:40)
[2021-03-13] MEDS: traZODone 100 MG Tablet PO (21:41)
[2021-03-14] MEDS: Phenobarbital 32.4 MG Tablet 64.8 MG PO ×6 (01:47→20:55)
[2021-03-14] MEDS: hydrOXYzine PAM 25 MG Capsule 50 MG PO ×2 (01:48→20:55)
[2021-03-14 02:00] VITALS: BP 125/88; PULSE 78; RESP 16; TEMP 36.6; O2SAT 95
[2021-03-14 08:56] VITALS: BP 137/92; PULSE 91; RESP 14; TEMP 36.6; O2SAT 97
[2021-03-14] MEDS: Lisinopril 40 MG Tablet PO (09:01)
[2021-03-14] MEDS: Folic Acid 1 MG Tablet PO (09:01)
[2021-03-14] MEDS: Baclofen 10 MG Tablet 20 MG PO ×2 (09:01→20:55)
[2021-03-14] MEDS: Thiamine Hydrochloride 100 MG Tablet PO (09:01)
[2021-03-14] MEDS: LORazepam 1 MG Tablet PO ×2 (09:05→17:40)
--- NOTE | 2021-03-14 10:15 | ADDICTION ---
This worker and PT discussed d/c planning today. PT reports that he is willing to go to [facility] but would like to go home 1st to tie up some loose ends. This worker faxed H&P to [facility] and informed him he would have to follow up with admissions once he is ready to admit. Clinician gave PT contact information for [facility].
--- NOTE | 2021-03-14 11:08 | PN.HOSP_ITS ---
Subjective Subjective His tremors are well controlled now. Denies nausea or vomiting. No abdominal pain or restless leg. Objective Data Objective Data Vital Signs: Vital Signs Temp Pulse Resp BP Pulse Ox 97.8 F 91 14 137/92 H 97 03/14/21 08:56 03/14/21 08:56 03/14/21 08:56 03/14/21 08:56 03/14/21 08:56 Oxygen Delivery Method Room Air Weight: 192 lb 14.472 oz Body Mass Index (BMI) 28.0 Intake & Output: Intake and Output for Last 24 Hours 03/12/21 03/13/21 03/14/21 23:59 23:59 23:59 Intake Total 500 / 500 Balance 500 / 500 Lab / Micro Data Result Diagrams: 03/13/21 01:55 03/13/21 01:55 Physical Exam Narrative Physical exam General: Alert, Oriented x3, Cooperative HEENT: Atraumatic, PERRLA, EOMI, Normocephalic Oral: No Gingival or Mucosal Lesions/ Ulcerations Neck: Supple, No JVD, Negative Carotid Bruits Lungs: Air entry equal in bilateral lung bases. No crepitation/rhonchi Cardiovascular: Regular rate, Regular Rhythm, Normal S1, Normal S2, No murmurs Abdomen: Bowel Sounds Present, Soft, Non Tender, Non-Distended : No renal angle tenderness. No suprapubic tenderness. Extremities: No edema, Capillary Refill Less than 3 Seconds Skin: No rashes, No breakdown Musculoskeletal: No Tenderness to Palpation of Joints or Extremities. His tremors are well controlled Neurological: Cranial nerves II-XII grossly intact, DTR 2+/4 and Symmetrical, Neuro grossly intact Psych/Mental Status: Normal Affect, Appropriate. Assessment & Plan Assessment/Plan (1) Alcohol dependence with acute alcoholic intoxication: QUALIFIERS: Complication of substance-induced condition: uncomplicated Qualified Code(s): F10.220 - Alcohol dependence with intoxication, uncomplicated PLAN: 1. Acute alcohol withdrawal with history of chronic alcohol use, dependence and tolerance: Patient is having withdrawal symptoms. On phenobarbital along with other adjunctive medications to control his withdrawal symptoms. 03/14: Symptoms of withdrawal are well controlled. 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 History of multiple alcohol relapses. 2. Acute on chronic alcoholic hepatitis. Transaminases ALT and AST are elevated. Alkaline phosphatase normal. Patient has history of jaundice in the past therefore he had chronic alcoholic hepatitis alcohol cessation advised. Monitor liver chemistry 3. Anxiety syndrome: On as needed lorazepam to help with some anxiety. VTE prophylaxis: Early ambulation. Low risk not indicated Charges/Coding Visit Charges Inpatient E&M: 93449 Subs Hosp L2
[2021-03-14 13:00] VITALS: BP 142/98; PULSE 103; RESP 14; TEMP 36.7; O2SAT 97
[2021-03-14] MEDS: Loperamide 2 MG Capsule PO ×2 (13:00→17:39)
[2021-03-14] MEDS: Ibuprofen 600 MG Tablet PO (13:00)
[2021-03-14] MEDS: Gabapentin 300 MG Capsule PO (13:00)
--- NOTE | 2021-03-14 15:16 | NURSING ---
on day of discharge (sat/sun) please call [facility] @ [phone] so they know pt is on the way. according to them pt has own ride to facility. In case you need to fax anything their fax # [phone]
[2021-03-14 17:00] VITALS: BP 149/105; PULSE 95; RESP 14; TEMP 36.7; O2SAT 95
[2021-03-14] MEDS: Acetaminophen 500 MG Tablet PO (17:39)
[2021-03-14 20:45] VITALS: BP 146/90; PULSE 98; RESP 17; TEMP 36.6; O2SAT 96
[2021-03-14] MEDS: Mirtazapine 15 MG Tablet PO (20:55)
[2021-03-14] MEDS: traZODone 100 MG Tablet PO (20:55)
[2021-03-15] MEDS: Phenobarbital 32.4 MG Tablet 64.8 MG PO ×4 (01:57→12:43)
[2021-03-15] MEDS: Gabapentin 300 MG Capsule PO ×2 (01:58→09:12)
[2021-03-15] MEDS: Acetaminophen 500 MG Tablet PO (01:58)
[2021-03-15 02:06] VITALS: BP 129/87; PULSE 71; RESP 15; TEMP 36.6; O2SAT 97
[2021-03-15 06:49] LABS: ALB/GLOB Ratio 0.7 RATIO (0.9-2.4); AST(SGOT) 178 U/L (15-37); Alanine Aminotransfer ALT/SGPT 184 U/L (16-61); Albumin, Serum 2.9 g/dL (3.2-5.0); Alkaline Phosphatase 98 U/L (45-117); Anion Gap 3 (5-15); BUN 11 mg/dL (7-18); BUN/Creat Ratio 16.3 RATIO (10-20); Calcium,Total 8.6 mg/dL (8.5-10.1); Chloride 108 mmol/L (98-107); Creatinine, Serum 0.67 mg/dL (0.70-1.30); EST Glomerular Filtration Rate 142 mL/min (>60); Est Glom Filt Rate - Afr Amer 171 mL/min (>60); Estimated Creatinine Clearance 152.42 ml/min; Globulin 4.1 g/dL (2.2-4.2); Glucose 98 mg/dL (74-106); Magnesium 2.1 mg/dL (1.6-2.6); Potassium 3.4 mmol/L (3.5-5.1); Sodium Level 137 mmol/L (136-145)
--- NOTE | 2021-03-15 07:13 | PCM.PN.HOSP ---
Subjective Subjective Patient stated he slept good last night and woke up in the morning. He had a bad dream and feeling depressed and sad and anxiety. Does not have suicidal ideation. Wants to have as needed Ativan which is already in his medication list. I told him that he has to stay until Wednesday as he wanted to go home on Ativan prescription but was declined Objective Data Objective Data Vital Signs: Vital Signs Temp Pulse Resp BP Pulse Ox 97.8 F 71 15 129/87 H 97 03/15/21 02:06 03/15/21 02:06 03/15/21 02:06 03/15/21 02:06 03/15/21 02:06 Oxygen Delivery Method Room Air Weight: 192 lb 14.472 oz Body Mass Index (BMI) 28.0 Intake & Output: Intake and Output for Last 24 Hours 03/13/21 03/14/21 03/15/21 23:59 23:59 23:59 Intake Total 500 / 500 Balance 500 / 500 Lab / Micro Data Result Diagrams: 03/13/21 01:55 03/15/21 05:15 Labs: Laboratory Results - last 24 hr 03/15/21 05:15: Sodium 137, Potassium 3.4 L, Chloride 108 H, Carbon Dioxide 26.0, Anion Gap 3 L, BUN 11, Creatinine 0.67 L, Estim Creat Clear Calc 152.42, Est GFR (MDRD) Af Amer 171, Est GFR (MDRD) Non-Af 142, BUN/Creatinine Ratio 16.3, Glucose 98, Calcium 8.6, Magnesium 2.1, Total Bilirubin 0.60, AST 178 H, ALT 184 H, Alkaline Phosphatase 98, Total Protein 7.0, Albumin 2.9 L, Globulin 4.1, Albumin/Globulin Ratio 0.7 L Physical Exam Narrative Physical exam General: Alert, Oriented x3, Cooperative HEENT: Atraumatic, PERRLA, EOMI, Normocephalic Oral: No Gingival or Mucosal Lesions/ Ulcerations Neck: Supple, No JVD, Negative Carotid Bruits Lungs: Air entry equal in bilateral lung bases. No crepitation/rhonchi Cardiovascular: Regular rate, Regular Rhythm, Normal S1, Normal S2, No murmurs Abdomen: Bowel Sounds Present, Soft, Non Tender, Non-Distended : No renal angle tenderness. No suprapubic tenderness. Extremities: No edema, Capillary Refill Less than 3 Seconds Skin: No rashes, No breakdown Musculoskeletal: No Tenderness to Palpation of Joints or Extremities. His tremors are well controlled Neurological: Cranial nerves II-XII grossly intact, DTR 2+/4 and Symmetrical, Neuro grossly intact Psych/Mental Status: Normal Affect, Appropriate. Assessment & Plan Assessment/Plan (1) Alcohol dependence with acute alcoholic intoxication: QUALIFIERS: Complication of substance-induced condition: uncomplicated Qualified Code(s): F10.220 - Alcohol dependence with intoxication, uncomplicated PLAN: 1. Acute alcohol withdrawal with history of chronic alcohol use, dependence and tolerance: Patient is having withdrawal symptoms. On phenobarbital along with other adjunctive medications to control his withdrawal symptoms. 03/14: Symptoms of withdrawal are well controlled. Discussed with 180 case work aide patient has history of psychiatric disorder and probably will need inpatient alcohol rehab. History of multiple alcohol relapses. 03/15: Patient had hallucination, bad dreams/nightmares and feels depressed. Advised nurse to give 1 mg p.o. Ativan. 2. Acute on chronic alcoholic hepatitis. Transaminases ALT and AST are elevated. Alkaline phosphatase normal. Patient has history of jaundice in the past therefore he had chronic alcoholic hepatitis alcohol cessation advised. 01/13: ALT and AST are elevated. Monitor after 2 to 3 months when he is not drinking alcohol. 3. Anxiety syndrome: On as needed lorazepam to help with some anxiety. VTE prophylaxis: Early ambulation. Low risk not indicated Charges/Coding Visit Charges Inpatient E&M: 77294 Subs Hosp L2
[2021-03-15 09:10] VITALS: BP 136/93; PULSE 86; RESP 18; TEMP 37.1; O2SAT 96
[2021-03-15] MEDS: Thiamine Hydrochloride 100 MG Tablet PO (09:11)
[2021-03-15] MEDS: Folic Acid 1 MG Tablet PO (09:11)
[2021-03-15] MEDS: Lisinopril 40 MG Tablet PO (09:12)
[2021-03-15] MEDS: Baclofen 10 MG Tablet 20 MG PO (09:12)
--- NOTE | 2021-03-15 12:17 | NURSING ---
talked with social workers whom [facility] Etienne detox coordinator will be in today to talk with patient and discuss dc planning.
[2021-03-15] MEDS: hydrOXYzine PAM 25 MG Capsule 50 MG PO (12:43)
[2021-03-15] MEDS: Nystatin Ointment 1 APPLIC TOPICAL (12:44)
[2021-03-15 12:54] VITALS: BP 148/104; PULSE 92; RESP 18; TEMP 36.7; O2SAT 96
--- NOTE | 2021-03-15 13:59 | NURSING ---
received phone from Etienne detox coordinator. aware Etienne would not be able to see patient today but was aware patient had verbalized questions and concerns to discuss with her. Took phone on speaker phone to room for patient to talk with Etienne to talk with patient. Primary RN called to room as pt became increasingly agitated and argumentative with coordinator regarding details of discharge and housing arrangements. Pt verbalized he was leaving ama. pt got out of bed got his totes and used a butter knife and pried the zip ties off the tote. Pt refuses to sign ama form, pt informed out still be considered leaving. had security called. Dr. Noel sent a text of patient's decision to leave AMA.
--- NOTE | 2021-03-15 14:01 | PCM.DC.SUM ---
Providers Date of Admission: 03/13/21 Primary Care Physician: LESLIE Hobbs Reason For Visit: ALCOHOL WITHDRAWAL Diagnosis Discharge Diagnosis (1) Alcohol dependence with acute alcoholic intoxication: Status: Acute Code(s): F10.229 - Alcohol dependence with intoxication, unspecified Qualifiers: Complication of substance-induced condition: uncomplicated Qualified Code(s): F10.220 - Alcohol dependence with intoxication, uncomplicated Medications at Discharge Home Medications baclofen 20 mg PO BID 11/02/20 lisinopril 40 mg PO DAILY 11/02/20 mirtazapine 15 mg PO QHS 11/22/20 Hospital Course Summary of Care Provided Hospital Course: The patient is admitted for acute alcohol withdrawal syndrome with history of chronic alcohol use and dependence. Patient has history of alcohol withdrawal seizure and history of multiple relapses in the past. Patient was recommended by 180 for possible inpatient monitoring rehab but patient signed AMA. Risk of signing AMA explained the patient is escorted by security. Please see progress note of the same date for detailed physical exam and evaluation. Weight / BMI Weight Weight: 192 lb 14.472 oz Body Mass Index (BMI) 28.0 ABG / Lab / Microbiology Data Result Diagrams: 03/13/21 01:55 03/15/21 05:15 Laboratory: Laboratory Results - last 24 hr 03/15/21 05:15: Sodium 137, Potassium 3.4 L, Chloride 108 H, Carbon Dioxide 26.0, Anion Gap 3 L, BUN 11, Creatinine 0.67 L, Estim Creat Clear Calc 152.42, Est GFR (MDRD) Af Amer 171, Est GFR (MDRD) Non-Af 142, BUN/Creatinine Ratio 16.3, Glucose 98, Calcium 8.6, Magnesium 2.1, Total Bilirubin 0.60, AST 178 H, ALT 184 H, Alkaline Phosphatase 98, Total Protein 7.0, Albumin 2.9 L, Globulin 4.1, Albumin/Globulin Ratio 0.7 L Meaningful Use Info Meaningful Use Diagnoses (Choose all that apply): None applicable Discharge Plan Admission Admit Date/Time: 03/13/21 04:01 Attending Provider: Shahriar Noel Primary Care Provider: Lamar Aragon Discharge Orders/Prescriptions Prescriptions: No Action baclofen 20 mg tablet 20 mg PO BID RF: 0 lisinopril 40 mg tablet 40 mg PO DAILY RF: 0 mirtazapine 15 mg tablet 15 mg PO QHS RF: 0 Referrals / Follow Up: Lamar Aragon, OUTPATIENT PSYCHIATRIST-C [Primary Care Provider] - Disposition Discharge Orders: Discharge Patient (Routine); Ordered 03/15/21 Ordered By: Dr. Shahriar Noel Charges/Coding Addendum Addendum: Cancel the billing charge of progress note of the same date. Visit Charges Inpatient E&M: 37886 Disch Hosp
--- NOTE | 2021-03-15 14:09 | NURSING ---
pt became loud and refusing to bring voice down-pt arguing w/ detox counselor on phone and refusing to listen to what she is trying to tell him pt was angry that she did not wake me up yesterday, she only whispered my name, she should have woke me up!-pt requesting to be dc'd today to go home and get things ready to go to inpt rehab wednesday-security called when pt refused to sign AMA paper at bedside-pt resued the 2nd request and was escorted off unit w/security
--- NOTE | 2021-03-15 15:15 | PCA ---
notified [facility] that patient left our facility against medical advise.
== END 2021-03-15 14:07 | disposition left against medical advice (07) | DRG 770 ==
LOC: ED 03:22 → MS3 04:26
PROVIDERS: Emergency Provider Emergency Medicine; PCP Nurse Practitioner Family; Visit Provider Internal Medicine
DX: F10.239 Alcohol dependence with withdrawal, unspecified (principal); F10.229 Alcohol dependence with intoxication, unspecified; Z56.0 Unemployment, unspecified; F17.210 Nicotine dependence, cigarettes, uncomplicated; E66.9 Obesity, unspecified; Y90.8 Blood alcohol level of 240 mg/100 ml or more; F10.220 Alcohol dependence with intoxication, uncomplicated; Z68.29 Body mass index [BMI] 29.0-29.9, adult; F41.9 Anxiety disorder, unspecified; K70.10 Alcoholic hepatitis without ascites
CPT/HCPCS: 36415; 80053; 80307; 82077; 83735; 85025; 85610; 99285; 99406

== ENCOUNTER 2021-04-26 16:54 | Emergency (ER) | payer MEDICAID, SELFPAY ==
[2021-04-26 16:55] VITALS: BP 159/119; PULSE 103; RESP 16; TEMP 36; O2SAT 98; BMI 28.7
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
[2021-04-26] MEDS: oxyCODONE 5 MG Tablet 10 MG PO (17:32)
[2021-04-26 17:35] VITALS: RESP 16
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
[2021-04-26 18:22] VITALS: BP 124/77; PULSE 62; RESP 15; O2SAT 98
== END 2021-04-26 18:23 | disposition home or self-care (01) ==
PROVIDERS: Emergency Provider Emergency Medicine; PCP Nurse Practitioner Family
DX: S50.312A Abrasion of left elbow, initial encounter (principal); I25.10 Atherosclerotic heart disease of native coronary artery without angina pectoris; F17.210 Nicotine dependence, cigarettes, uncomplicated; I10 Essential (primary) hypertension; Z87.442 Personal history of urinary calculi; K21.9 Gastro-esophageal reflux disease without esophagitis; Y04.0XXA Assault by unarmed brawl or fight, initial encounter; Z79.899 Other long term (current) drug therapy
CPT/HCPCS: 71101; 99283

== ENCOUNTER 2021-05-11 14:11 | Inpatient (IN) | payer MEDICAID, SELFPAY ==
[2021-05-11 14:48] VITALS: BP 157/105; PULSE 116; RESP 16; TEMP 36.7; O2SAT 96; BMI 29.5
[2021-05-11 19:04] VITALS: PULSE 115; RESP 16; TEMP 36.9; O2SAT 95
[2021-05-11 19:06] VITALS: PULSE 118; RESP 18; O2SAT 97
--- NOTE | 2021-05-11 19:23 | EKG12_ITS ---
Test Reason : DYSRHYTHMIA Blood Pressure : / mmHG Vent. Rate : 108 BPM Atrial Rate : 108 BPM P-R Int : 146 ms QRS Dur : 094 ms QT Int : 354 ms P-R-T Axes : 036 034 034 degrees QTc Int : 474 ms Sinus tachycardia Otherwise normal ECG Confirmed by SUSAN MILLS, RADHA ([id number]), copy editor JAMES CONNELLY ([id number]) on 05/14/2021 12:14:08 PM Referred By: RYAN Confirmed By:RADHA DAVIS MD
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
[2021-05-11] MEDS: LORazepam 2 MG/ML Syringe IV ×2 (19:32→21:03)
[2021-05-11] MEDS: 0.9% Normal Saline 1,000 ML 1000 ML IV (19:32)
[2021-05-11] MEDS: Ondansetron 4 MG/2 ML Vial IV ×2 (19:32→22:59)
[2021-05-11 19:56] LABS: Absolute Lymphocyte Count 0.92 X10^3/uL (0.83-4.51); Absolute Neutrophil Count 2.1 X10^3/uL (2.0-7.7); Basophil# 0.03 X10^3/uL; Basophil% 0.9 % (0-1); Eosinophil# 0.01 X10^3/uL; Eosinophils% 0.3 % (0-5); Hematocrit 38.1 % (40-54); Hemoglobin 13.2 g/dL (13.0-16.5); Lymphocyte # 0.92 X10^3/ul (0.83-4.51); Mean Corp Hgb Conc 34.6 g/dL (32-36); Mean Corpuscular Hgb 29.7 pg (27.0-32.0); Mean Corpuscular Volume 85.8 fL (80-94); Mean Platelet Vol. 9.9 fl (6.2-12.0); Monocyte# 0.31 X10^3/uL; Monocyte% 9.1 % (0-10); NRBC Flagged by Analyzer 0 % (0-5); Neutrophil # 2.12 X10^3/uL (2.7-7.7); Neutrophil % 62.1 % (47-70); Platelet Count 156 K/mm3 (150-450); RBC Distribution Width CV 13.6 % (11.6-14.6); RBC Distribution Width SD 42.5 fl (35.1-43.9); Red Blood Count 4.44 M/mm3 (4.6-6.2); White Blood Count 3.4 K/mm3 (4.4-11.0)
[2021-05-11 20:25] LABS: ALB/GLOB Ratio 0.8 RATIO (0.9-2.4); AST(SGOT) 109 U/L (15-37); Alanine Aminotransfer ALT/SGPT 89 U/L (16-61); Albumin, Serum 3.5 g/dL (3.2-5.0); Alkaline Phosphatase 122 U/L (45-117); Anion Gap 14 (5-15); BUN 7 mg/dL (7-18); BUN/Creat Ratio 9.9 RATIO (10-20); Calcium,Total 8.9 mg/dL (8.5-10.1); Chloride 99 mmol/L (98-107); Creatinine, Serum 0.71 mg/dL (0.70-1.30); EST Glomerular Filtration Rate 134 mL/min (>60); Est Glom Filt Rate - Afr Amer 162 mL/min (>60); Estimated Creatinine Clearance 143.83 ml/min; Globulin 4.6 g/dL (2.2-4.2); Glucose 85 mg/dL (74-106); Potassium 3.4 mmol/L (3.5-5.1); Protein, Total 8.1 g/dL (6.4-8.2); Sodium Level 137 mmol/L (136-145)
[2021-05-11 21:03] VITALS: BP 157/103; PULSE 125; RESP 20; O2SAT 95
[2021-05-11 23:56] VITALS: BP 148/99; PULSE 112; RESP 16; TEMP 36.8; O2SAT 97
[2021-05-12] VITALS (11 sets, daily range): BP systolic 138–163; BP diastolic 77–113; PULSE 106–119; RESP 16–18; TEMP 36.8–37.2; O2SAT 94–97; BMI 27.0
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
[2021-05-12] MEDS: LORazepam 2 MG/ML Syringe 4 MG IV (00:37)
[2021-05-12] MEDS: Pantoprazole Sodium 40 MG Tablet PO ×2 (01:43→08:35)
[2021-05-12] MEDS: Phenobarbital 32.4 MG Tablet PO ×6 (01:43→21:52)
--- NOTE | 2021-05-12 02:01 | PCS.PANDOC ---
PANDEMIC DOCUMENTATION INITIATED: Date: 12/23/2020 Time: 1900 Emergency documentation initiated 05/12/21 @ 0100
[2021-05-12] MEDS: Acetaminophen 325 MG Tablet 650 MG PO ×2 (02:41→19:23)
[2021-05-12] MEDS: hydrOXYzine PAM 25 MG Capsule 50 MG PO (02:41)
[2021-05-12] MEDS: Lisinopril 40 MG Tablet PO ×2 (02:42→08:33)
[2021-05-12 05:53] LABS: Absolute Lymphocyte Count 0.73 X10^3/uL (0.83-4.51); Absolute Neutrophil Count 2.6 X10^3/uL (2.0-7.7); Basophil# 0.02 X10^3/uL; Basophil% 0.5 % (0-1); Eosinophil# 0.02 X10^3/uL; Eosinophils% 0.5 % (0-5); Hematocrit 36.1 % (40-54); Hemoglobin 12.7 g/dL (13.0-16.5); Lymphocyte # 0.73 X10^3/ul (0.83-4.51); Lymphocyte % 19.1 % (19-41); Mean Corp Hgb Conc 35.2 g/dL (32-36); Mean Corpuscular Hgb 30.3 pg (27.0-32.0); Mean Corpuscular Volume 86.2 fL (80-94); Monocyte# 0.46 X10^3/uL; NRBC Flagged by Analyzer 0 % (0-5); Neutrophil # 2.58 X10^3/uL (2.7-7.7); Neutrophil % 67.6 % (47-70); Platelet Count 118 K/mm3 (150-450); RBC Distribution Width CV 13.7 % (11.6-14.6); RBC Distribution Width SD 42.3 fl (35.1-43.9); Red Blood Count 4.19 M/mm3 (4.6-6.2); White Blood Count 3.8 K/mm3 (4.4-11.0)
[2021-05-12] MEDS: Metoprolol Tartrate 25 MG Tablet 12.5 MG PO ×2 (08:33→21:51)
[2021-05-12] MEDS: Folic Acid 1 MG Tablet PO (08:34)
[2021-05-12] MEDS: Thiamine Hydrochloride 100 MG Tablet PO (08:34)
[2021-05-12 09:23] LABS: Magnesium 1.6 mg/dL (1.6-2.6)
[2021-05-12] MEDS: Potassium Chloride Oral Tablet 20 MEQ 40 MEQ PO (09:35)
--- NOTE | 2021-05-12 11:41 | ADDICTION ---
This chief underwriter met with PT to conduct ASAM, MSE, AUDIT assessments and to plan for d/c. PT A+Ox4 and participated actively. All assessments completed in PT's chart. PT and this worker will do d/c planning on day 3 of his admission due to his repeated hx of AMA and no follow up after detox. PT did not indicate a need for transportation post d/c from [facility].
[2021-05-12] MEDS: LORazepam 1 MG Tablet 2 MG PO ×2 (14:53→19:23)
[2021-05-12] MEDS: traZODone 100 MG Tablet PO (21:51)
[2021-05-13 02:40] VITALS: BP 122/89; PULSE 107; RESP 18; TEMP 36.6; O2SAT 97
[2021-05-13] MEDS: Acetaminophen 325 MG Tablet 650 MG PO ×2 (05:50→21:32)
[2021-05-13] MEDS: Phenobarbital 32.4 MG Tablet PO ×5 (05:51→21:28)
[2021-05-13 05:53] LABS: Absolute Lymphocyte Count 1.17 X10^3/uL (0.83-4.51); Basophil# 0.02 X10^3/uL; Basophil% 0.6 % (0-1); Eosinophil# 0.08 X10^3/uL; Eosinophils% 2.3 % (0-5); Hematocrit 39.6 % (40-54); Hemoglobin 13.4 g/dL (13.0-16.5); Lymphocyte # 1.17 X10^3/ul (0.83-4.51); Mean Corp Hgb Conc 33.8 g/dL (32-36); Mean Corpuscular Hgb 29.5 pg (27.0-32.0); Mean Corpuscular Volume 87.2 fL (80-94); Mean Platelet Vol. 10.3 fl (6.2-12.0); Monocyte% 5.8 % (0-10); NRBC Flagged by Analyzer 0 % (0-5); Neutrophil # 1.96 X10^3/uL (2.7-7.7); Platelet Count 111 K/mm3 (150-450); RBC Distribution Width CV 13.5 % (11.6-14.6); RBC Distribution Width SD 42.7 fl (35.1-43.9); Red Blood Count 4.54 M/mm3 (4.6-6.2); White Blood Count 3.4 K/mm3 (4.4-11.0)
[2021-05-13 06:11] LABS: ALB/GLOB Ratio 0.7 RATIO (0.9-2.4); AST(SGOT) 99 U/L (15-37); Alanine Aminotransfer ALT/SGPT 83 U/L (16-61); Albumin, Serum 3.1 g/dL (3.2-5.0); Alkaline Phosphatase 117 U/L (45-117); Anion Gap 8 (5-15); BUN 7 mg/dL (7-18); BUN/Creat Ratio 11.2 RATIO (10-20); Calcium,Total 9.2 mg/dL (8.5-10.1); Chloride 102 mmol/L (98-107); Creatinine, Serum 0.62 mg/dL (0.70-1.30); EST Glomerular Filtration Rate 154 mL/min (>60); Est Glom Filt Rate - Afr Amer 187 mL/min (>60); Estimated Creatinine Clearance 170.07 ml/min; Globulin 4.3 g/dL (2.2-4.2); Glucose 97 mg/dL (74-106); Protein, Total 7.4 g/dL (6.4-8.2); Sodium Level 135 mmol/L (136-145)
--- NOTE | 2021-05-13 07:48 | PCM.PN.HOSP ---
Subjective Subjective Follow-up on acute alcohol withdrawal: Patient was seen and examined. He complains of feeling restless. No other acute events overnight. Objective Data Objective Data Vital Signs: Vital Signs Temp Pulse Resp BP Pulse Ox 97.8 F 107 H 18 122/89 H 97 05/13/21 02:40 05/13/21 02:40 05/13/21 02:40 05/13/21 02:40 05/13/21 02:40 Oxygen Delivery Method Room Air Weight: 85.4 kg Body Mass Index (BMI) 27.0 Intake & Output: Intake and Output for Last 24 Hours 05/11/21 05/12/21 05/13/21 23:59 23:59 23:59 Intake Total 1000 / 1000 1120 / 1520 600 / 600 Balance 1000 / 1000 1120 / 1520 600 / 600 Lab / Micro Data Result Diagrams: 05/13/21 05:30 05/13/21 05:30 Labs: Laboratory Results - last 24 hr 05/12/21 05:13: Magnesium 1.6 05/13/21 05:30: WBC 3.4 L, RBC 4.54 L, Hgb 13.4, Hct 39.6 L, MCV 87.2, MCH 29.5, MCHC 33.8, RDW Std Deviation 42.7, RDW Coeff of Srinivasa 13.5, Plt Count 111 L, MPV 10.3, Immature Gran % (Auto) 0.300, Neut % (Auto) 57.0, Lymph % (Auto) 34.0, [place] % (Auto) 5.8, Eos % (Auto) 2.3, Baso % (Auto) 0.6, Absolute Neuts (auto) 2.0, Absolute Lymphs (auto) 1.17, Nucleated RBC % 0 05/13/21 05:30: Sodium 135 L, Potassium 3.0 L, Chloride 102, Carbon Dioxide 25.0, Anion Gap 8, BUN 7, Creatinine 0.62 L, Estim Creat Clear Calc 170.07, Est GFR (MDRD) Af Amer 187, Est GFR (MDRD) Non-Af 154, BUN/Creatinine Ratio 11.2, Glucose 97, Calcium 9.2, Magnesium 2.0, Total Bilirubin 0.90, AST 99 H, ALT 83 H, Alkaline Phosphatase 117, Total Protein 7.4, Albumin 3.1 L, Globulin 4.3 H, Albumin/Globulin Ratio 0.7 L Micro: Microbiology 05/12/21 00:29 Stool Stool Occult Blood (AVELINA) - Final 05/11/21 21:25 Nasal Secretion SARS-CoV-2 Antigen (Rapid) - Final Physical Exam Narrative Physical exam: General: Alert, Oriented x3, Cooperative, No apparent distress, Well developed HEENT: Atraumatic Oral: Moist Mucosa Neck: Supple Lungs: Clear to auscultation Cardiovascular: HS I+II, regular, no murmurs Abdomen: Bowel Sounds Present, Soft, Non Tender Extremities: No edema Assessment & Plan Assessment/Plan (1) Admitted to alcohol detoxification center: (2) Desire for detoxification: (3) Alcohol withdrawal: QUALIFIERS: Complication of substance-induced condition: with delirium Qualified Code(s): F10.231 - Alcohol dependence with withdrawal delirium (4) Hematochezia: PLAN: 1. Acute alcohol withdrawal, last CIWA score is 8 Patient with known alcohol use disorder Continue on phenobarbital withdrawal protocol 2. Hypertension, controlled, continue lisinopril and metoprolol 3. Nicotine dependence, on replacement 4. History of hematochezia, none seen here Patient's hemoglobin is stable at 13.4 Will continue to monitor 5. DVT PPx-low risk; early ambulation recommended Charges/Coding Visit Charges Inpatient E&M: 08655 Subs Hosp L2
[2021-05-13 08:11] VITALS: O2SAT 95
[2021-05-13 09:12] VITALS: BP 120/83; PULSE 94; RESP 18; TEMP 36.9; O2SAT 97
[2021-05-13] MEDS: Pantoprazole Sodium 40 MG Tablet PO (09:15)
[2021-05-13] MEDS: Lisinopril 40 MG Tablet PO (09:15)
[2021-05-13 09:16] VITALS: PULSE 94
[2021-05-13] MEDS: Metoprolol Tartrate 25 MG Tablet 12.5 MG PO (09:16)
[2021-05-13] MEDS: Thiamine Hydrochloride 100 MG Tablet PO (09:17)
[2021-05-13] MEDS: Folic Acid 1 MG Tablet PO (09:19)
[2021-05-13] MEDS: Potassium Chloride Oral Tablet 20 MEQ 40 MEQ PO (11:25)
[2021-05-13] MEDS: Baclofen 10 MG Tablet 20 MG PO (11:25)
[2021-05-13] MEDS: Gabapentin 300 MG Capsule PO ×2 (12:45→21:28)
[2021-05-13] MEDS: Loperamide 2 MG Capsule PO ×2 (12:45→17:18)
[2021-05-13 16:38] VITALS: BP 134/93; PULSE 86; RESP 18; TEMP 36.9; O2SAT 98
[2021-05-13] MEDS: Dicyclomine 10 MG Capsule 20 MG PO (17:24)
[2021-05-13] MEDS: traZODone 100 MG Tablet PO (21:28)
[2021-05-13 21:30] VITALS: BP 124/90; PULSE 105; RESP 18; TEMP 37.7; O2SAT 97
[2021-05-14] VITALS (7 sets, daily range): BP systolic 122–147; BP diastolic 78–96; PULSE 84–105; RESP 16–18; TEMP 36.9–37.1; O2SAT 95–97
[2021-05-14] MEDS: Metoprolol Tartrate 25 MG Tablet 12.5 MG PO ×3 (01:39→20:28)
[2021-05-14] MEDS: Phenobarbital 32.4 MG Tablet PO ×5 (01:39→20:29)
[2021-05-14] MEDS: Baclofen 10 MG Tablet 20 MG PO ×3 (01:39→20:28)
[2021-05-14] MEDS: Gabapentin 300 MG Capsule PO ×2 (05:31→20:29)
[2021-05-14 06:10] LABS: ALB/GLOB Ratio 0.8 RATIO (0.9-2.4); AST(SGOT) 72 U/L (15-37); Alanine Aminotransfer ALT/SGPT 85 U/L (16-61); Albumin, Serum 3.2 g/dL (3.2-5.0); Alkaline Phosphatase 109 U/L (45-117); Anion Gap 10 (5-15); BUN 9 mg/dL (7-18); BUN/Creat Ratio 13.5 RATIO (10-20); Calcium,Total 8.8 mg/dL (8.5-10.1); Chloride 104 mmol/L (98-107); Creatinine, Serum 0.67 mg/dL (0.70-1.30); EST Glomerular Filtration Rate 143 mL/min (>60); Est Glom Filt Rate - Afr Amer 173 mL/min (>60); Estimated Creatinine Clearance 157.38 ml/min; Globulin 4.2 g/dL (2.2-4.2); Glucose 98 mg/dL (74-106); Potassium 3.3 mmol/L (3.5-5.1); Protein, Total 7.4 g/dL (6.4-8.2); Sodium Level 136 mmol/L (136-145)
[2021-05-14 07:40] LABS: Bedside Glucose 111 mg/dL (70-110)
[2021-05-14] MEDS: Thiamine Hydrochloride 100 MG Tablet PO (08:15)
[2021-05-14] MEDS: Folic Acid 1 MG Tablet PO (08:15)
[2021-05-14] MEDS: Acetaminophen 325 MG Tablet 650 MG PO ×2 (08:15→15:17)
[2021-05-14] MEDS: LORazepam 1 MG Tablet 2 MG PO (08:17)
[2021-05-14] MEDS: hydrOXYzine PAM 25 MG Capsule 50 MG PO ×2 (08:18→20:29)
[2021-05-14] MEDS: Pantoprazole Sodium 40 MG Tablet PO (10:03)
[2021-05-14] MEDS: Lisinopril 40 MG Tablet PO (10:04)
--- NOTE | 2021-05-14 11:22 | PCM.PN.HOSP ---
Subjective Subjective Follow-up on acute alcohol withdrawal/hypokalemia: Patient was seen and examined. He feels a lot better. Still having symptoms of withdrawal-feeling shaky, diaphoretic Objective Data Objective Data Vital Signs: Vital Signs Temp Pulse Resp BP Pulse Ox 98.8 F 90 18 132/91 H 96 05/14/21 08:09 05/14/21 10:03 05/14/21 08:09 05/14/21 10:03 05/14/21 08:09 Oxygen Delivery Method Room Air Weight: 85.4 kg Body Mass Index (BMI) 27.0 Intake & Output: Intake and Output for Last 24 Hours 05/12/21 05/13/21 05/14/21 23:59 23:59 23:59 Intake Total 1120 / 1520 600 / 600 Balance 1120 / 1520 600 / 600 Lab / Micro Data Result Diagrams: 05/13/21 05:30 05/14/21 05:35 Labs: Laboratory Results - last 24 hr 05/14/21 05:35: Sodium 136, Potassium 3.3 L, Chloride 104, Carbon Dioxide 22.0, Anion Gap 10, BUN 9, Creatinine 0.67 L, Estim Creat Clear Calc 157.38, Est GFR (MDRD) Af Amer 173, Est GFR (MDRD) Non-Af 143, BUN/Creatinine Ratio 13.5, Glucose 98, Calcium 8.8, Total Bilirubin 0.50, AST 72 H, ALT 85 H, Alkaline Phosphatase 109, Total Protein 7.4, Albumin 3.2, Globulin 4.2, Albumin/Globulin Ratio 0.8 L 05/14/21 07:23: POC Glucose 111 H Micro: Microbiology 05/12/21 00:29 Stool Stool Occult Blood (AVELINA) - Final 05/11/21 21:25 Nasal Secretion SARS-CoV-2 Antigen (Rapid) - Final Physical Exam Narrative Physical exam: General: Alert, Oriented x3, Cooperative, No apparent distress, Well developed HEENT: Atraumatic Oral: Moist Mucosa Neck: Supple Lungs: Clear to auscultation Cardiovascular: HS I+II, regular, no murmurs Abdomen: Bowel Sounds Present, Soft, Non Tender Extremities: No edema Assessment & Plan Assessment/Plan (1) Admitted to alcohol detoxification center: (2) Desire for detoxification: (3) Alcohol withdrawal: QUALIFIERS: Complication of substance-induced condition: with delirium Qualified Code(s): F10.231 - Alcohol dependence with withdrawal delirium (4) Hematochezia: PLAN: 1. Acute alcohol withdrawal, waxes and wanes Last CIWA score was 23 Patient has known alcohol use disorder Continue on phenobarbital withdrawal protocol 2. Hypokalemia, potassium was 3.3, replaced 3. Hypertension, controlled, continue lisinopril and metoprolol 4. Nicotine dependence, on replacement 5. History of hematochezia, none seen here Patient's hemoglobin is stable at 13.4 Will continue to monitor 6. DVT PPx-low risk; early ambulation recommended Charges/Coding Visit Charges Inpatient E&M: 34506 Subs Hosp L3
--- NOTE | 2021-05-14 13:04 | ADDICTION ---
This worker worked on placement for residential treatment for this pt. Pt has an telehealth assessment tomorrow at 9am through [facility]. They will call the nurses station phone number for this call. Once that call is complete they will inform us of an approval or denial. This worker also placed a referral with [facility] and is waiting on approval. If he is approved of either place it will be for a direct admit on 05/15.
[2021-05-14] MEDS: Dicyclomine 10 MG Capsule 20 MG PO (20:29)
[2021-05-14] MEDS: traZODone 100 MG Tablet PO (20:29)
[2021-05-15 02:35] VITALS: BP 112/83; PULSE 84; RESP 16; TEMP 36.6; O2SAT 96
[2021-05-15] MEDS: 0.9% Saline Lock 10 ML Syringe IV (02:43)
[2021-05-15] MEDS: Phenobarbital 32.4 MG Tablet PO ×2 (02:43→09:08)
[2021-05-15] MEDS: hydrOXYzine PAM 25 MG Capsule 50 MG PO (02:43)
[2021-05-15] MEDS: Acetaminophen 325 MG Tablet 650 MG PO (02:44)
[2021-05-15 07:17] LABS: ALB/GLOB Ratio 0.7 RATIO (0.9-2.4); AST(SGOT) 64 U/L (15-37); Alanine Aminotransfer ALT/SGPT 88 U/L (16-61); Albumin, Serum 3.1 g/dL (3.2-5.0); Alkaline Phosphatase 96 U/L (45-117); Anion Gap 7 (5-15); BUN 11 mg/dL (7-18); BUN/Creat Ratio 18.2 RATIO (10-20); Calcium,Total 8.9 mg/dL (8.5-10.1); Chloride 105 mmol/L (98-107); EST Glomerular Filtration Rate 160 mL/min (>60); Est Glom Filt Rate - Afr Amer 194 mL/min (>60); Estimated Creatinine Clearance 175.74 ml/min; Globulin 4.2 g/dL (2.2-4.2); Glucose 95 mg/dL (74-106); Potassium 3.5 mmol/L (3.5-5.1); Protein, Total 7.3 g/dL (6.4-8.2); Sodium Level 135 mmol/L (136-145)
[2021-05-15 07:53] VITALS: O2SAT 95
[2021-05-15 08:00] VITALS: BP 129/95; PULSE 108; RESP 18; TEMP 36.4; O2SAT 97
[2021-05-15] MEDS: Folic Acid 1 MG Tablet PO (09:02)
[2021-05-15] MEDS: Potassium Chloride Oral Tablet 20 MEQ 40 MEQ PO (09:02)
[2021-05-15] MEDS: Thiamine Hydrochloride 100 MG Tablet PO (09:03)
[2021-05-15 09:09] VITALS: PULSE 95
[2021-05-15] MEDS: Metoprolol Tartrate 25 MG Tablet 12.5 MG PO (09:09)
[2021-05-15] MEDS: Baclofen 10 MG Tablet 20 MG PO (09:09)
[2021-05-15] MEDS: Pantoprazole Sodium 40 MG Tablet PO (09:12)
[2021-05-15] MEDS: Lisinopril 40 MG Tablet PO (09:12)
--- NOTE | 2021-05-15 09:30 | NURSING ---
0905-pt on tele [employer] meeting
[2021-05-15] MEDS: Gabapentin 300 MG Capsule PO (10:42)
--- NOTE | 2021-05-15 11:22 | PCM.DC ---
Discharge Instructions Diet Discharge Diet: Low fat / Low cholesterol and 2000 mg Sodium Diet Activity Discharge Activity: Return to Normal Activity Follow Up Care Test Results: Test results from this visit will be discussed in further detail at your follow-up appointment, if applicable. Discharge Plan Admission Admit Date/Time: 05/12/21 00:13 Primary Reason for Your Visit: Acute alcohol withdrawal Attending Provider: Sunitha Cruz Primary Care Provider: Lamar Aragon Instructions Additional Instructions / Restrictions: You are strongly advised to avoid alcohol or use of any illicit drug. Avoid smoking. Follow-up with your outpatient rehab program as scheduled. Discharge Orders/Prescriptions Prescriptions: New potassium chloride [Klor-Con M20] 20 mEq Tablet,Er Particles/Crystals 40 meq PO DAILYCM 7 Days Qty: 14 RF: 0 pantoprazole 40 mg Tablet,Delayed Release (Dr/Ec) 40 mg PO DAILY 30 Days Qty: 30 RF: 0 metoprolol tartrate 25 mg Tablet 12.5 mg PO BID 30 Days Qty: 30 RF: 0 Continued baclofen 20 mg tablet 20 mg PO BID RF: 0 lisinopril 40 mg tablet 40 mg PO DAILY RF: 0 hydrocodone-acetaminophen 1 TABLET tablet 1 tab PO Q6H PRN PRN (Reason: Pain) 3 Days Qty: 12 RF: 0 ibuprofen 600 MG tablet 600 mg PO Q8 RF: 0 Referrals / Follow Up: Lamar Aragon NP-C [Primary Care Provider] - Within 2 Weeks Disposition Disposition (needs filled in before D/C Order can be placed): Home, Self Care
--- NOTE | 2021-05-15 13:15 | DS.PCM_ITS ---
Providers Date of Admission: 05/12/21 Date of Discharge: 05/15/21 Primary Care Physician: LESLIE Hobbs Reason For Visit: DESIRE FOR DETOXIFICATION Diagnosis Discharge Diagnosis (1) Admitted to alcohol detoxification center: Status: Acute (2) Desire for detoxification: Status: Acute (3) Alcohol withdrawal: Status: Acute Code(s): F10.239 - Alcohol dependence with withdrawal, unspecified Qualifiers: Complication of substance-induced condition: with delirium Qualified Code(s): F10.231 - Alcohol dependence with withdrawal delirium (4) Hematochezia: Status: Resolved Code(s): K92.1 - Melena Medications at Discharge Home Medications baclofen 20 mg PO BID 11/02/20 lisinopril 40 mg PO DAILY 11/02/20 hydrocodone-acetaminophen 1 tab PO Q6H PRN PRN 3 Days #12 tablet 04/26/21 ibuprofen 600 mg PO Q8 05/12/21 metoprolol tartrate 12.5 mg PO BID 30 Days #30 tab 05/15/21 pantoprazole 40 mg PO DAILY 30 Days #30 tab 05/15/21 potassium chloride [Klor-Con M20] 40 meq PO DAILYCM 7 Days #14 tab 05/15/21 Hospital Course Operations None Procedures None Summary of Care Provided Minutes Spent on Discharge: 45 Hospital Course: 36-year-old male with past medical history of chronic alcohol use disorder, hypertension who was admitted for medical stabilization from acute alcohol withdrawal. Patient admits to drinking 40-80 prove liquor per day. Patient last drank 1 to 2 days before admission. Patient was admitted to the [facility] floor and managed on alcohol withdrawal protocol with phenobarbital. He had elevated blood pressure and changes were made to his medications. Patient continued to improve with no acute events during this hospital stay. Patient was seen by the nuclear worker technician and was discharged to inpatient residential facility. Physical Exam Narrative Physical exam: General: Alert, Oriented x3, Cooperative, No apparent distress, Well developed HEENT: Atraumatic Oral: Moist Mucosa Neck: Supple Lungs: Clear to auscultation Cardiovascular: HS I+II, regular, no murmurs Abdomen: Bowel Sounds Present, Soft, Non Tender Extremities: No edema Weight / BMI Weight Weight: 85.4 kg Body Mass Index (BMI) 27.0 ABG / Lab / Microbiology Data Result Diagrams: 05/13/21 05:30 05/15/21 06:18 Laboratory: Laboratory Results - last 24 hr 05/15/21 06:18: Sodium 135 L, Potassium 3.5, Chloride 105, Carbon Dioxide 23.0, Anion Gap 7, BUN 11, Creatinine 0.60 L, Estim Creat Clear Calc 175.74, Est GFR (MDRD) Af Amer 194, Est GFR (MDRD) Non-Af 160, BUN/Creatinine Ratio 18.2, Glucose 95, Calcium 8.9, Total Bilirubin 0.50, AST 64 H, ALT 88 H, Alkaline Phosphatase 96, Total Protein 7.3, Albumin 3.1 L, Globulin 4.2, Albumin/Globulin Ratio 0.7 L Microbiology: Microbiology 05/12/21 00:29 Stool Stool Occult Blood (AVELINA) - Final 05/11/21 21:25 Nasal Secretion SARS-CoV-2 Antigen (Rapid) - Final D/C Instructions Discharge Diet: Low fat / Low cholesterol and 2000 mg Sodium Diet Meaningful Use Info Meaningful Use Diagnoses (Choose all that apply): None applicable Discharge Plan Admission Admit Date/Time: 05/12/21 00:13 Primary Reason for Your Visit: Acute alcohol withdrawal Attending Provider: Sunitha Cruz Primary Care Provider: Lamar Aragon Instructions Additional Instructions / Restrictions: You are strongly advised to avoid alcohol or use of any illicit drug. Avoid smoking. Follow-up with your outpatient rehab program as scheduled. Discharge Orders/Prescriptions Prescriptions: New potassium chloride [Klor-Con M20] 20 mEq Tablet,Er Particles/Crystals 40 meq PO DAILYCM 7 Days Qty: 14 RF: 0 pantoprazole 40 mg Tablet,Delayed Release (Dr/Ec) 40 mg PO DAILY 30 Days Qty: 30 RF: 0 metoprolol tartrate 25 mg Tablet 12.5 mg PO BID 30 Days Qty: 30 RF: 0 Continued baclofen 20 mg tablet 20 mg PO BID RF: 0 lisinopril 40 mg tablet 40 mg PO DAILY RF: 0 hydrocodone-acetaminophen 1 TABLET tablet 1 tab PO Q6H PRN PRN (Reason: Pain) 3 Days Qty: 12 RF: 0 ibuprofen 600 MG tablet 600 mg PO Q8 RF: 0 Referrals / Follow Up: Lamar Aragon NP-C [Primary Care Provider] - Within 2 Weeks Disposition Disposition (needs filled in before D/C Order can be placed): Home, Self Care Charges/Coding Visit Charges Inpatient E&M: 68236 Disch Hosp
[2021-05-15 13:48] VITALS: BP 149/108; PULSE 98; RESP 98; TEMP 36.7
== END 2021-05-15 15:10 | disposition home or self-care (01) | DRG 775 ==
LOC: ED 23:51 → MS2 05-12 00:49
PROVIDERS: Admitting Provider Hospitalist; Emergency Provider Emergency Medicine; PCP Nurse Practitioner Family; Visit Provider Internal Medicine
DX: F10.231 Alcohol dependence with withdrawal delirium (principal); K21.9 Gastro-esophageal reflux disease without esophagitis; I10 Essential (primary) hypertension; I25.10 Atherosclerotic heart disease of native coronary artery without angina pectoris; E87.6 Hypokalemia; F32.A Depression, unspecified; Y90.5 Blood alcohol level of 100-119 mg/100 ml; K92.1 Melena; F17.210 Nicotine dependence, cigarettes, uncomplicated; F41.9 Anxiety disorder, unspecified; Z81.1 Family history of alcohol abuse and dependence; Z82.5 Family history of asthma and other chronic lower respiratory diseases; Z87.442 Personal history of urinary calculi; Z90.49 Acquired absence of other specified parts of digestive tract; Z95.5 Presence of coronary angioplasty implant and graft
CPT/HCPCS: 36415; 71045; 80053; 82077; 82274; 82962; 83735; 85025; 87426; 93005; 99285; 99406; J7030; A4216; J2405

== ENCOUNTER 2021-09-14 19:39 | Observation (INO) | payer MEDICAID, SELFPAY ==
[2021-09-14 19:42] VITALS: BP 158/102; PULSE 115; RESP 16; TEMP 37; O2SAT 95; BMI 25.4
--- NOTE | 2021-09-14 19:59 | EKG12_ITS ---
Test Reason : DYSRHYTHMIA Blood Pressure : / mmHG Vent. Rate : 105 BPM Atrial Rate : 105 BPM P-R Int : 166 ms QRS Dur : 094 ms QT Int : 316 ms P-R-T Axes : 026 025 015 degrees QTc Int : 417 ms Sinus tachycardia Septal infarct , age undetermined Abnormal ECG Confirmed by SUSAN MILLS, RADHA ([id number]), online editor JUAN CHEN ([id number]) on 09/15/2021 1:03:34 PM Referred By: Confirmed By:RADHA DAVIS MD
--- NOTE | 2021-09-14 20:00 | EX.ED.DYSGE1 ---
HPI History of Present Illness Chief Complaint: ETOH Intox Informant: patient and EMS Narrative Narrative: 36-year-old male presents the emergency department via EMS requesting detox from alcohol. Patient states that he has recently been sober for 4 months but then started to try to live on his own and started drinking bourbon very heavily 3 weeks ago. He believes his last drink may have been last night. He states that he is starting to feel shaky. He has had prior withdrawal seizure. He has no pending legal issues. He states that he is sober living set up after detox. [facility] Medical History Admitted to alcohol detoxification center Alcohol dependence Alcohol intoxication Alcohol withdrawal Anxiety CAD (coronary artery disease) Depression ETOH abuse GERD (gastroesophageal reflux disease) Hernia Hypertension Jaundice Kidney stones Seizures Smoker Home Medications baclofen 20 mg PO BID 11/02/20 [History Last Taken 09/07/21] lisinopril 40 mg PO DAILY 11/02/20 [History Last Taken 09/13/21] ibuprofen 600 mg PO Q8 05/12/21 [History Last Taken 05/11/21] omeprazole 20 mg PO BID 09/14/21 [History Last Taken 09/07/21] Allergy/AdvReac Type Severity Reaction Status Date / Time Penicillins [PCN] AdvReac Unknown Verified 09/14/21 19:44 Family History Mother Emphysema of lung Father Hereditary spastic paraplegia Other Alcoholism in family member Surgical History History of appendectomy History of coronary artery stent placement Social History household members: none housing: apartment Smoking Status: Current every day smoker tobacco type: cigarettes alcohol intake: current alcohol intake frequency: other Alcohol type: beer, wine and hard liquor details: Documented in HPI substance use type: does not use ROS ROS ED Constitutional Constitutional ED: Reports chills and sweats; Denies fever(s) or weight loss Eyes Eyes: Denies change in vision or diplopia ENT ENT ED: Denies ear pain, rhinorrhea or sore throat Cardiovascular Cardiovascular: Denies chest pain, orthopnea, palpitations or racing heartbeat Respiratory/Chest Respiratory/Chest: Denies cough, dyspnea or orthopnea Gastrointestinal Gastrointestinal: Reports nausea; Denies abdominal pain, diarrhea or vomiting Genitourinary Genitourinary ED: Denies dysuria, hematuria or urinary frequency Musculoskeletal Musculoskeletal: Reports myalgias; Denies arthralgias Integumentary Denies abscess or rash Neurologic Neurologic: Reports headache(s); Denies weakness Psychiatric Psychiatric: Denies anxiety, depression, suicidal ideation or suicidal thoughts Endocrine Endocrinology: Denies polydipsia, polyphagia or polyuria Allergic/Immunologic Allergic/Immunologic ED: Denies mouth swelling, tongue swelling or urticaria EXAM Physical Exam Const Vital Signs: 09/14/21 19:42 Temperature 98.6 F Temperature Source Oral Pulse Rate 115 H Respiratory Rate 16 Blood Pressure 158/102 H Blood Pressure Mean 120 Pulse Ox 95 Oxygen Delivery Method Room Air Positive well nourished and well developed General Appearance ED: well developed HEENT Reports normocephalic, head/scalp atraumatic, TM's clear and moist mucous membranes Negative for trauma Tympanic Membrane ED: Yes TM's clear Eyes PERRL and EOMs intact bilaterally Neck no lymphadenopathy, supple and no JVD Resp normal respiratory effort and clear to auscultation bilaterally Cardio regular rate and no murmurs Rate: tachycardic GI normal to inspection, nondistended, normoactive bowel sounds and non-tender Palpation: soft Back/Spine no CVA tenderness and normal ROM Extremity normal to inspection General Extremety ED: Negative for edema General Extremity: Negative for edema Neuro oriented x3 and CN's II-XII intact bilaterally Sensorium / Orientation: alert Motor Exam: strength 5/5 throughout Psych mental status grossly normal Mood & Affect: Negative for depressed or tearful Skin no rashes or lesions noted and no wounds MDM MDM Lab Data Labs: Laboratory Results - last 24 hr 09/14/21 20:10 Ur Drug Screen Comment EKG Initial EKG: Attestation: I personally reviewed and interpreted this EKG as follows: Comments: Sinus tachycardia with a ventricular rate of 105 bpm Discharge Plan Dx/Rx/DC Orders Clinical Impression: Alcohol withdrawal Disposition Disposition: [facility]
--- NOTE | 2021-09-14 20:10 | PCM.HP.STD ---
HPI - General General Date of Admission: 09/14/21 Date of Service: 09/14/21 Chief Complaint: Acute EtOH Withdrawal HPI Narrative The patient is a 36 y/o M w/ PMHx: CAD s/p PCI, Tobacco use, Anxiety and Depression, HTN, GERD, EtOH abuse with history of EtOH withdrawal seizures in the past currently reporting ~ 1/2 gallon [place] daily with last intake earlier in the day, possibly early AM who presents to the [facility] ED on 09/14/21 with onset of alcohol withdrawal this evening with mild nausea, tremors, mild agitation, fatigue and malaise noting interest in obtaining sober status with last presentation in May noting that he remained sober until he moved out on his own and had increased anxiety prompting him to start drinking again. In the ED work-up included T98.6, heart rate 115, BP 158/102, respiratory rate 16, 95% on room air, pending CBC, CMP, mag, Phos, UDS, ethyl alcohol level upon evaluation. [facility] Medical History Admitted to alcohol detoxification center Alcohol dependence Alcohol intoxication Alcohol withdrawal Anxiety CAD (coronary artery disease) Depression ETOH abuse GERD (gastroesophageal reflux disease) Hernia Hypertension Jaundice Kidney stones Seizures Smoker Home Medications baclofen 20 mg PO BID 11/02/20 [History Last Taken 09/07/21] lisinopril 40 mg PO DAILY 11/02/20 [History Last Taken 09/13/21] ibuprofen 600 mg PO Q8 05/12/21 [History Last Taken 05/11/21] omeprazole 20 mg PO BID 09/14/21 [History Last Taken 09/07/21] Allergy/AdvReac Type Severity Reaction Status Date / Time Penicillins [PCN] AdvReac Unknown Verified 09/14/21 19:44 Family History Mother Emphysema of lung Father Hereditary spastic paraplegia Other Alcoholism in family member Surgical History History of appendectomy History of coronary artery stent placement Social History (Updated 09/14/21 @ 20:[address] Francheska Real MD) household members: none housing: apartment Smoking Status: Current every day smoker tobacco type: cigarettes Smoking packs per day: 0.25 Smoking cigarettes per day: 5.0 Smokeless tobacco user: other alcohol intake: current alcohol intake frequency: 3 or more drinks per day Alcohol type: beer, wine and hard liquor details: Currently primarily 1/2 gallon [place] daily, intermittent also beer/wine. substance use type: does not use ROS ROS Narrative Admission Review of Systems: CONSTITUTIONAL: No weight loss, fever, chills, + weakness or fatigue. HEENT: Eyes: No visual loss, blurred vision, double vision or yellow sclerae. Ears, Nose, Throat: No hearing loss, sneezing, congestion, runny nose or sore throat. SKIN: No rash or itching, lesions, wounds. CARDIOVASCULAR: + Palpitations. No chest pain, chest pressure or chest discomfort, edema, orthopnea, syncopal events. RESPIRATORY: No shortness of breath, cough or sputum, wheezing, hemoptysis. GASTROINTESTINAL: + Anorexia, nausea, No vomiting or diarrhea, abdominal pain, melena, BRBPR. GENITOURINARY: No dysuria, frequency, urgency or retention. NEUROLOGICAL: + Tremors, does have hx seizures with EtOH withdrawal prior, No headache, dizziness, syncope, paralysis, ataxia, numbness or tingling in the extremities, focal weakness, change in bowel or bladder control. MUSCULOSKELETAL: + muscle, back pain, joint pain or stiffness. HEMATOLOGIC: No anemia, bleeding or bruising. LYMPHATICS: No enlarged nodes. No history of splenectomy. PSYCHIATRIC: + history of depression or anxiety. ENDOCRINOLOGIC: No reports of sweating, cold or heat intolerance. No polyuria or polydipsia. ALLERGIES: + history of rhinitis. Vital Signs Vital Signs Vital Signs: 09/14/21 19:42 Temperature 98.6 F Temperature Source Oral Pulse Rate 115 H Respiratory Rate 16 Blood Pressure 158/102 H Blood Pressure Mean 120 Pulse Ox 95 Oxygen Delivery Method Room Air Weight Weight: 177 lb 12.492 oz Body Mass Index (BMI) 25.4 Physical Exam Narrative Physical Examination: General: Awake, alert, oriented x 3 and cooperative, seated upright in the ED bed, tremulous, mildly agitated, anxious Skin: Normal color, normal turgor, no icterus, no cyanosis. HEENT: AT/NC, EOMI, PERRLA, dry MM, no carotid bruits or JVD noted. Lungs: Mildly diminished, greater bases, appropriate effort, no rales, ronchi or wheezing. Heart: Tachycardic with regular rhythm; no gallop, rub audible. Abdomen: Soft, mild discomfort right upper quadrant palpation but no rebound or guarding, ND, hyperactive BS, very minimal HM. Extremities: No cyanosis, clubbing, or edema. Neurological: Patient awake, alert, oriented as noted, cognitive function intact; pupils equally reactive to light and accommodation, cranial nerves II-XII grossly normal, moving all 4 extremities, no focal deficits, strength mildly to moderately globally decreased secondary to acute presentation, tremulous, anxious. Psychiatric: Affect appears anxious, tremulous, history of depressive or anxiety feelings. Results Lab / Micro Data Result Diagrams: 09/14/21 20:00 09/14/21 20:00 Assessment & Plan Assessment/Plan (1) Alcohol withdrawal: QUALIFIERS: Complication of substance-induced condition: uncomplicated Qualified Code(s): F10.230 - Alcohol dependence with withdrawal, uncomplicated PLAN: The patient is a 36 y/o M w/ PMHx: CAD s/p PCI, Tobacco use, Anxiety and Depression, HTN, GERD, EtOH abuse with history of EtOH withdrawal seizures in the past currently reporting ~ 1/2 gallon [place] daily with last intake earlier in the day, possibly early AM who presents to the [facility] ED on 09/14/21 with onset of alcohol withdrawal this evening with mild nausea, tremors, mild agitation, fatigue and malaise noting interest in obtaining sober status. #1. Acute EtOH Withdrawal: Will admit to medical surgical floor and closely monitor given withdrawal seizure history, routine labs obtained in the ED upon presentation and pending upon evaluation. Given interest in sobriety, will initiate and continue on protocol with taper course of Phenobarbital, scheduled gabapentin for seizure prophylaxis, as needed Catapres, Bentyl, Vistaril, IV fluids, IV antiemetics, Tylenol as needed for pain. Will consult Case management for assistance for transition to next level of rehabilitation care. Mag, phos pending. Maintain on CIWA protocol concurrently. #2. CAD: Status post PCI prior, will maintain on aspirin, not on beta-alexandria, continue lisinopril, not on statin therapy. #3. Hypertension: Continue home regimen including lisinopril with hold parameters as needed, add beta-alexandria if BP appropriate given #2, PRN hydralazine. #4. Hyperlipidemia: Not on statin therapy, will defer to outpatient given acute presentation. #5. Anxiety and depression: Not on regimen, encourage outpatient counseling as well as possible medications as suspect likely contributing to alcohol intake per discussions. #6. Chronic back pain with spasms: We will continue patient home twice daily baclofen regimen, encourage positional changes #7. GERD: We will maintain on PPI. #8. Tobacco Abuse: Encouraged cessation, inpatient consultation per RT, NR if desired. #9. DVT prophylaxis: Low risk, encourage ambulation. Charges/Coding Visit Charges Inpatient E&M: 84430 Init Hosp L3
[2021-09-14 20:13] LABS: Absolute Lymphocyte Count 1.36 X10^3/uL (0.83-4.51); Absolute Neutrophil Count 0.9 X10^3/uL (2.0-7.7); Basophil# 0.03 X10^3/uL; Basophil% 1.1 % (0-1); Eosinophil# 0.03 X10^3/uL; Eosinophils% 1.1 % (0-5); Hematocrit 37.1 % (40-54); Hemoglobin 12.7 g/dL (13.0-16.5); Lymphocyte # 1.36 X10^3/ul (0.83-4.51); Lymphocyte % 50.2 % (19-41); Mean Corp Hgb Conc 34.2 g/dL (32-36); Mean Corpuscular Hgb 29.5 pg (27.0-32.0); Mean Corpuscular Volume 86.1 fL (80-94); Mean Platelet Vol. 9.7 fl (6.2-12.0); Monocyte# 0.33 X10^3/uL; Monocyte% 12.2 % (0-10); NRBC Flagged by Analyzer 0 % (0-5); Neutrophil # 0.93 X10^3/uL (2.7-7.7); Neutrophil % 34.3 % (47-70); POSITIVE DIFFERENTIAL YES; Platelet Count 127 K/mm3 (150-450); RBC Distribution Width CV 15.7 % (11.6-14.6); RBC Distribution Width SD 49.1 fl (35.1-43.9); Red Blood Count 4.31 M/mm3 (4.6-6.2); White Blood Count 2.7 K/mm3 (4.4-11.0)
[2021-09-14 20:23] LABS: Differential Indicated SCAN CRITERIA MET
[2021-09-14 20:29] LABS: International Normalized Ratio 0.9; Prothrombin Time (Protime)PT. 11.3 SECONDS (11.7-14.9)
[2021-09-14 20:45] LABS: Amphetamine Urine VISTA NEGATIVE (<1000 ng/mL); Barbiturate Urine VISTA NEGATIVE (< 200 ng/mL); Benzodiazepine Urine VISTA NEGATIVE (< 200 ng/mL); Cocaine Urine VISTA NEGATIVE (< 300 ng/mL); Ecstacy Urine VISTA NEGATIVE (< 500 ng/mL); Methadone Urine VISTA NEGATIVE (< 300 ng/mL); PCP Urine VISTA NEGATIVE (< 25 ng/mL); THC Urine VISTA NEGATIVE (< 50 ng/mL); Vista UDS pH Range 5
[2021-09-14 20:46] LABS: ALB/GLOB Ratio 0.8 RATIO (0.9-2.4); AST(SGOT) 350 U/L (15-37); Alanine Aminotransfer ALT/SGPT 253 U/L (16-61); Albumin, Serum 3.1 g/dL (3.2-5.0); Alkaline Phosphatase 98 U/L (45-117); Anion Gap 12 (5-15); BUN 14 mg/dL (7-18); Calcium,Total 7.8 mg/dL (8.5-10.1); Chloride 106 mmol/L (98-107); EST Glomerular Filtration Rate 135 mL/min (>60); Est Glom Filt Rate - Afr Amer 164 mL/min (>60); Estimated Creatinine Clearance 150.63 ml/min; Globulin 3.7 g/dL (2.2-4.2); Glucose 112 mg/dL (74-106); Magnesium 1.5 mg/dL (1.6-2.6); Phosphorus 2.8 mg/dL (2.5-4.9); Potassium 2.8 mmol/L (3.5-5.1); Protein, Total 6.8 g/dL (6.4-8.2); Sodium Level 142 mmol/L (136-145)
[2021-09-14 21:11] LABS: Differential Comment SCANNED
[2021-09-14 21:32] VITALS: BP 143/106; PULSE 104; RESP 20; TEMP 36.9; O2SAT 98
[2021-09-14 22:03] VITALS: BMI 27.1
[2021-09-14 22:06] VITALS: BP 157/114; PULSE 105; RESP 18; TEMP 36.9; O2SAT 96
[2021-09-14] MEDS: 0.9% Saline Lock 10 ML Syringe IV (22:30)
[2021-09-14] MEDS: traZODone 100 MG Tablet PO (22:30)
[2021-09-14] MEDS: Pantoprazole Sodium 20 MG Tablet PO (22:30)
[2021-09-14] MEDS: Lactated Ringers 1,000 ML 125 ML IV (22:30)
[2021-09-14] MEDS: Gabapentin 300 MG Capsule PO (22:30)
[2021-09-14] MEDS: Carvedilol 6.25 MG Tablet PO (22:30)
[2021-09-14] MEDS: Ibuprofen 400 MG Tablet 800 MG PO (22:31)
[2021-09-14] MEDS: Ondansetron 8 MG Tablet PO (22:31)
[2021-09-14] MEDS: hydrOXYzine PAM 25 MG Capsule 50 MG PO (22:31)
[2021-09-14] MEDS: Phenobarbital 32.4 MG Tablet PO (22:31)
[2021-09-14] MEDS: Potassium Chloride Oral Soln 20 MEQ/15 ML UDC 40 MEQ PO (22:39)
[2021-09-14] MEDS: Baclofen 10 MG Tablet 20 MG PO (22:39)
[2021-09-15] VITALS (7 sets, daily range): BP systolic 138–168; BP diastolic 90–112; PULSE 79–93; RESP 16–18; TEMP 36.7–37.2; O2SAT 93–98
[2021-09-15] MEDS: hydrOXYzine PAM 25 MG Capsule 50 MG PO ×2 (02:30→09:44)
[2021-09-15] MEDS: Phenobarbital 32.4 MG Tablet PO ×5 (02:30→23:07)
[2021-09-15] MEDS: Gabapentin 300 MG Capsule PO (06:37)
[2021-09-15 08:13] LABS: Absolute Neutrophil Count 1.9 X10^3/uL (2.0-7.7); Basophil# 0.03 X10^3/uL; Basophil% 0.8 % (0-1); Eosinophil# 0.03 X10^3/uL; Eosinophils% 0.8 % (0-5); Hematocrit 34.1 % (40-54); Hemoglobin 11.8 g/dL (13.0-16.5); Lymphocyte % 37.2 % (19-41); Mean Corp Hgb Conc 34.6 g/dL (32-36); Mean Corpuscular Hgb 30.1 pg (27.0-32.0); Mean Platelet Vol. 9.6 fl (6.2-12.0); Monocyte# 0.41 X10^3/uL; Monocyte% 10.9 % (0-10); NRBC Flagged by Analyzer 0 % (0-5); Neutrophil # 1.85 X10^3/uL (2.7-7.7); Neutrophil % 49.2 % (47-70); Platelet Count 103 K/mm3 (150-450); RBC Distribution Width CV 15.2 % (11.6-14.6); RBC Distribution Width SD 48.4 fl (35.1-43.9); Red Blood Count 3.92 M/mm3 (4.6-6.2); White Blood Count 3.8 K/mm3 (4.4-11.0)
[2021-09-15 08:46] LABS: ALB/GLOB Ratio 0.8 RATIO (0.9-2.4); AST(SGOT) 298 U/L (15-37); Alanine Aminotransfer ALT/SGPT 242 U/L (16-61); Albumin, Serum 2.6 g/dL (3.2-5.0); Alkaline Phosphatase 88 U/L (45-117); Anion Gap 8 (5-15); BUN 16 mg/dL (7-18); BUN/Creat Ratio 19.7 RATIO (10-20); Chloride 106 mmol/L (98-107); Creatinine, Serum 0.81 mg/dL (0.70-1.30); EST Glomerular Filtration Rate 114 mL/min (>60); Est Glom Filt Rate - Afr Amer 138 mL/min (>60); Estimated Creatinine Clearance 130.18 ml/min; Globulin 3.3 g/dL (2.2-4.2); Glucose 92 mg/dL (74-106); Magnesium 1.6 mg/dL (1.6-2.6); Potassium 3.5 mmol/L (3.5-5.1); Protein, Total 5.9 g/dL (6.4-8.2); Sodium Level 141 mmol/L (136-145)
[2021-09-15] MEDS: Carvedilol 6.25 MG Tablet PO ×2 (09:40→23:06)
[2021-09-15] MEDS: Thiamine Hydrochloride 100 MG Tablet PO (09:41)
[2021-09-15] MEDS: Folic Acid 1 MG Tablet PO (09:41)
[2021-09-15] MEDS: Lisinopril 40 MG Tablet PO (09:41)
[2021-09-15] MEDS: Pantoprazole Sodium 20 MG Tablet PO ×2 (09:41→23:06)
[2021-09-15] MEDS: Baclofen 10 MG Tablet 20 MG PO ×2 (09:41→23:06)
[2021-09-15] MEDS: Aspirin 81 MG TAB.CHEW PO (09:41)
--- NOTE | 2021-09-15 09:42 | PN.HOSP_ITS ---
Subjective Subjective Follow-up on acute alcohol withdrawal: Patient was seen and examined. Denies any new complaints. No acute events overnight. Objective Data Objective Data Vital Signs: Vital Signs Temp Pulse Resp BP Pulse Ox 98.6 F 92 16 142/90 H 93 09/15/21 06:33 09/15/21 06:33 09/15/21 06:33 09/15/21 06:33 09/15/21 06:33 Oxygen Delivery Method Room Air Weight: 85.6 kg Body Mass Index (BMI) 27.1 Intake & Output: Intake and Output for Last 24 Hours 09/13/21 09/14/21 09/15/21 23:59 23:59 23:59 Intake Total 1600 / 1600 Balance 1600 / 1600 Lab / Micro Data Result Diagrams: 09/15/21 08:01 09/15/21 08:01 Labs: Laboratory Results - last 24 hr 09/14/21 20:00: WBC 2.7 L, RBC 4.31 L, Hgb 12.7 L, Hct 37.1 L, MCV 86.1, MCH 29.5, MCHC 34.2, RDW Std Deviation 49.1 H, RDW Coeff of Srinivasa 15.7 H, Plt Count 127 L, MPV 9.7, Immature Gran % (Auto) 1.100 H, Neut % (Auto) 34.3 L, Lymph % (Auto) 50.2 H, [place] % (Auto) 12.2 H, Eos % (Auto) 1.1, Baso % (Auto) 1.1 H, Absolute Neuts (auto) 0.9 L, Absolute Lymphs (auto) 1.36, Nucleated RBC % 0, Differential Comment SCANNED 09/14/21 20:00: PT 11.3 L, INR 0.9 09/14/21 20:00: Sodium 142, Potassium 2.8 L, Chloride 106, Carbon Dioxide 24.0, Anion Gap 12, BUN 14, Creatinine 0.70, Estim Creat Clear Calc 150.63, Est GFR (MDRD) Af Amer 164, Est GFR (MDRD) Non-Af 135, BUN/Creatinine Ratio 20.0, Glucose 112 H, Calcium 7.8 L, Phosphorus 2.8, Magnesium 1.5 L, Total Bilirubin 0.20, AST 350 H, ALT 253 H, Alkaline Phosphatase 98, Total Protein 6.8, Albumin 3.1 L, Globulin 3.7, Albumin/Globulin Ratio 0.8 L 09/14/21 20:00: Ethyl Alcohol 211.0 09/14/21 20:10: Urine Opiates Screen NEGATIVE, Urine Methadone Screen NEGATIVE, Ur Barbiturates Screen NEGATIVE, Ur Phencyclidine Scrn NEGATIVE, Ur Amphetamines Screen NEGATIVE, MDMA (Ecstasy) Screen NEGATIVE, U Benzodiazepines Scrn NEGATIVE, Urine Cocaine Screen NEGATIVE, U Cannabinoids Screen NEGATIVE, Ur Drug Screen Comment 09/15/21 08:01: WBC 3.8 L, RBC 3.92 L, Hgb 11.8 L, Hct 34.1 L, MCV 87.0, MCH 30.1, MCHC 34.6, RDW Std Deviation 48.4 H, RDW Coeff of Srinivasa 15.2 H, Plt Count 103 L, MPV 9.6, Immature Gran % (Auto) 1.100 H, Neut % (Auto) 49.2, Lymph % (Auto) 37.2, [place] % (Auto) 10.9 H, Eos % (Auto) 0.8, Baso % (Auto) 0.8, Absolute Neuts (auto) 1.9 L, Absolute Lymphs (auto) 1.40, Nucleated RBC % 0 09/15/21 08:01: Sodium 141, Potassium 3.5, Chloride 106, Carbon Dioxide 27.0, Anion Gap 8, BUN 16, Creatinine 0.81, Estim Creat Clear Calc 130.18, Est GFR (MDRD) Af Amer 138, Est GFR (MDRD) Non-Af 114, BUN/Creatinine Ratio 19.7, Glucose 92, Calcium 8.0 L, Magnesium 1.6, Total Bilirubin 0.50, AST 298 H, ALT 242 H, Alkaline Phosphatase 88, Total Protein 5.9 L, Albumin 2.6 L, Globulin 3.3, Albumin/Globulin Ratio 0.8 L Physical Exam Narrative Physical exam: General: Alert, Oriented x3, Cooperative, No apparent distress HEENT: Atraumatic Oral: Moist Mucosa Neck: Supple Lungs: Clear to auscultation Cardiovascular: HS I+II, regular, no murmurs Abdomen: Bowel Sounds Present, Soft, Non Tender Extremities: No edema Skin: No rashes, No breakdown Neurological: Grossly intact Psych/Mental Status: Appropriate Assessment & Plan Assessment/Plan (1) Alcohol withdrawal: QUALIFIERS: Complication of substance-induced condition: uncompl icated Qualified Code(s): F10.230 - Alcohol dependence with withdrawal, un complicated PLAN: 1. Acute alcohol withdrawal, last CIWA score was 10, Continue on phenobarb taper, folic acid, multivitamin, and thiamine 2. CAD status post PCI/hypertension/hyperlipidemia Continue on aspirin, lisinopril, Coreg We will check lipid profile in the morning 3. Rest of his chronic medical conditions including anxiety/depression, chronic back pain, GERD, nicotine dependence appears to be stable for now Continue on nicotine patch, Tylenol as needed for pain 4. DVT prophylaxis: low risk, encourage ambulation. Charges/Coding Visit Charges Inpatient E&M: 00507 Subs Hosp L2
[2021-09-15] MEDS: Ibuprofen 400 MG Tablet 800 MG PO ×2 (09:44→23:18)
--- NOTE | 2021-09-15 12:41 | ADDICTION ---
This continuity writer met with PT to conduct ASAM, MSE, AUDIT assessments and to plan for d/c. PT A+Ox4 and participated actively. All assessments completed and placed in PT's chart. PT plans to f/u with [facility] for follow-up treatment services. [facility] will provide transportation post d/c from [facility].They will be here 09/18 @ 10am to transport.
[2021-09-15 13:28] LABS: Pathologist Review Reviewed
[2021-09-15] MEDS: 0.9% Saline Lock 10 ML Syringe IV (23:15)
[2021-09-16] VITALS (10 sets, daily range): BP systolic 146–171; BP diastolic 105–107; PULSE 75–98; RESP 16–18; TEMP 36.7–37.6; O2SAT 94–99
[2021-09-16] MEDS: Phenobarbital 32.4 MG Tablet PO ×5 (02:21→22:28)
[2021-09-16 06:59] LABS: Cholesterol 189 mg/dL (200); High Density Lipoprotein 65 mg/dL; Triglycerides 165 mg/dL; Very Low Density Lipoprotein 33 mg/dL (5-40)
--- NOTE | 2021-09-16 07:51 | PN.HOSP_ITS ---
Subjective Subjective Follow-up on acute alcohol withdrawal: Patient was seen and examined. No acute events overnight. Denies any tremors, dizziness or palpitation. Objective Data Objective Data Vital Signs: Vital Signs Temp Pulse Resp BP Pulse Ox 98.1 F 81 16 146/106 H 94 09/16/21 02:16 09/16/21 02:16 09/16/21 02:16 09/16/21 02:16 09/16/21 02:16 Oxygen Delivery Method Room Air Weight: 85.6 kg Body Mass Index (BMI) 27.1 Intake & Output: Intake and Output for Last 24 Hours 09/14/21 09/15/21 09/16/21 23:59 23:59 23:59 Intake Total 1600 / 1600 Output Total 300 / 300 Balance 1300 / 1300 Lab / Micro Data Result Diagrams: 09/16/21 06:05 09/15/21 08:01 Labs: Laboratory Results - last 24 hr 09/14/21 20:00: Diff Path Review Reviewed 09/15/21 08:01: WBC 3.8 L, RBC 3.92 L, Hgb 11.8 L, Hct 34.1 L, MCV 87.0, MCH 30.1, MCHC 34.6, RDW Std Deviation 48.4 H, RDW Coeff of Srinivasa 15.2 H, Plt Count 103 L, MPV 9.6, Immature Gran % (Auto) 1.100 H, Neut % (Auto) 49.2, Lymph % (Auto) 37.2, [place] % (Auto) 10.9 H, Eos % (Auto) 0.8, Baso % (Auto) 0.8, Absolute Neuts (auto) 1.9 L, Absolute Lymphs (auto) 1.40, Nucleated RBC % 0 09/15/21 08:01: Sodium 141, Potassium 3.5, Chloride 106, Carbon Dioxide 27.0, Anion Gap 8, BUN 16, Creatinine 0.81, Estim Creat Clear Calc 130.18, Est GFR (MDRD) Af Amer 138, Est GFR (MDRD) Non-Af 114, BUN/Creatinine Ratio 19.7, Glucose 92, Calcium 8.0 L, Magnesium 1.6, Total Bilirubin 0.50, AST 298 H, ALT 242 H, Alkaline Phosphatase 88, Total Protein 5.9 L, Albumin 2.6 L, Globulin 3.3, Albumin/Globulin Ratio 0.8 L 09/16/21 06:05: Triglycerides 165, Cholesterol 189, LDL Cholesterol 91, VLDL Cholesterol 33, HDL Cholesterol 65 Physical Exam Narrative Physical exam: General: Alert, Oriented x3, Cooperative, No apparent distress HEENT: Atraumatic Oral: Moist Mucosa Neck: Supple Lungs: Clear to auscultation Cardiovascular: HS I+II, regular, no murmurs Abdomen: Bowel Sounds Present, Soft, Non Tender Extremities: No edema Skin: No rashes, No breakdown Neurological: Grossly intact Psych/Mental Status: Appropriate Assessment & Plan Assessment/Plan (1) Alcohol withdrawal: QUALIFIERS: Complication of substance-induced condition: uncomplicated Qualified Code(s): F10.230 - Alcohol dependence with withdrawal, uncomplicated PLAN: 1. Acute alcohol withdrawal, last CIWA score was 5, Continue on phenobarb taper, folic acid, multivitamin, and thiamine 2. Hypertension, remains uncontrolled, Continue lisinopril, increase Coreg to 12.5 mg p.o. twice daily Continue to monitor blood pressures 3. CAD status post PCI/hyperlipidemia Continue on aspirin, lisinopril, Coreg Lipid profile showed triglycerides 165, total cholesterol 189, LDL 91, HDL 65 Repeat CMP in a.m., if liver profile continues to be stable, will start patient on a low-dose statin 3. Rest of his chronic medical conditions including anxiety/depression, chronic back pain, GERD, nicotine dependence appears to be stable for now Continue on nicotine patch, Tylenol as needed for pain 4. DVT prophylaxis: low risk, encourage ambulation. Charges/Coding Visit Charges Inpatient E&M: 09765 Subs Hosp L2
[2021-09-16 08:17] LABS: Absolute Lymphocyte Count 1.41 X10^3/uL (0.83-4.51); Absolute Neutrophil Count 1.9 X10^3/uL (2.0-7.7); Basophil# 0.03 X10^3/uL; Basophil% 0.8 % (0-1); Eosinophil# 0.04 X10^3/uL; Hematocrit 34.8 % (40-54); Hemoglobin 12.1 g/dL (13.0-16.5); Lymphocyte # 1.41 X10^3/ul (0.83-4.51); Lymphocyte % 36.3 % (19-41); Mean Corp Hgb Conc 34.8 g/dL (32-36); Mean Corpuscular Hgb 29.8 pg (27.0-32.0); Mean Corpuscular Volume 85.7 fL (80-94); Mean Platelet Vol. 10.3 fl (6.2-12.0); Monocyte# 0.48 X10^3/uL; Monocyte% 12.4 % (0-10); NRBC Flagged by Analyzer 0 % (0-5); Neutrophil # 1.89 X10^3/uL (2.7-7.7); Neutrophil % 48.7 % (47-70); Platelet Count 123 K/mm3 (150-450); RBC Distribution Width CV 14.8 % (11.6-14.6); RBC Distribution Width SD 46.7 fl (35.1-43.9); Red Blood Count 4.06 M/mm3 (4.6-6.2); White Blood Count 3.9 K/mm3 (4.4-11.0)
[2021-09-16] MEDS: Aspirin 81 MG TAB.CHEW PO (09:07)
[2021-09-16] MEDS: Carvedilol 6.25 MG Tablet PO (09:07)
[2021-09-16] MEDS: Thiamine Hydrochloride 100 MG Tablet PO (09:07)
[2021-09-16] MEDS: Folic Acid 1 MG Tablet PO (09:07)
[2021-09-16] MEDS: Pantoprazole Sodium 20 MG Tablet PO ×2 (09:08→20:39)
[2021-09-16] MEDS: Baclofen 10 MG Tablet 20 MG PO ×2 (09:08→20:39)
[2021-09-16] MEDS: Lisinopril 40 MG Tablet PO (09:09)
[2021-09-16] MEDS: hydrALAZINE 20 MG/ML Vial 10 MG IV (11:47)
[2021-09-16] MEDS: 0.9% Saline Lock 10 ML Syringe IV (11:49)
[2021-09-16] MEDS: Albuterol 2.5 MG/3 ML VIAL.NEB. INHALATION ×2 (14:17→21:07)
[2021-09-16] MEDS: Carvedilol 25 MG Tablet PO (18:54)
--- NOTE | 2021-09-16 18:57 | NURSING ---
coreg 25mg po given per now order per dr. mehta for elevated bp.
[2021-09-17] VITALS (7 sets, daily range): BP systolic 133–169; BP diastolic 87–116; PULSE 71–88; RESP 16–18; TEMP 36.5–36.7; O2SAT 95–99
[2021-09-17] MEDS: Phenobarbital 32.4 MG Tablet PO ×4 (02:29→18:27)
[2021-09-17 05:43] LABS: ALB/GLOB Ratio 0.7 RATIO (0.9-2.4); AST(SGOT) 304 U/L (15-37); Alanine Aminotransfer ALT/SGPT 325 U/L (16-61); Albumin, Serum 2.5 g/dL (3.2-5.0); Alkaline Phosphatase 99 U/L (45-117); Anion Gap 7 (5-15); BUN 8 mg/dL (7-18); BUN/Creat Ratio 14.1 RATIO (10-20); Calcium,Total 7.9 mg/dL (8.5-10.1); Chloride 107 mmol/L (98-107); Creatinine, Serum 0.57 mg/dL (0.70-1.30); EST Glomerular Filtration Rate 173 mL/min (>60); Est Glom Filt Rate - Afr Amer 209 mL/min (>60); Estimated Creatinine Clearance 184.99 ml/min; Globulin 3.5 g/dL (2.2-4.2); Glucose 86 mg/dL (74-106); Potassium 3.3 mmol/L (3.5-5.1); Sodium Level 141 mmol/L (136-145)
[2021-09-17] MEDS: Ibuprofen 400 MG Tablet 800 MG PO (07:36)
[2021-09-17] MEDS: Thiamine Hydrochloride 100 MG Tablet PO (07:37)
[2021-09-17] MEDS: Folic Acid 1 MG Tablet PO (07:37)
[2021-09-17] MEDS: Gabapentin 300 MG Capsule PO ×2 (07:37→20:58)
[2021-09-17] MEDS: hydrOXYzine PAM 25 MG Capsule 50 MG PO (07:37)
[2021-09-17] MEDS: Aspirin 81 MG TAB.CHEW PO (07:38)
--- NOTE | 2021-09-17 09:07 | PCM.PN.HOSP ---
Subjective Subjective Follow-up on acute alcohol withdrawal: Patient was seen and examined. No acute events overnight. Patient was told, changes were made to his antihypertensive medications Objective Data Objective Data Vital Signs: Vital Signs Temp Pulse Resp BP Pulse Ox 97.9 F 79 18 147/102 H 97 09/17/21 08:54 09/17/21 08:54 09/17/21 08:54 09/17/21 08:54 09/17/21 08:54 Oxygen Delivery Method Room Air Weight: 85.6 kg Body Mass Index (BMI) 27.1 Intake & Output: Intake and Output for Last 24 Hours 09/15/21 09/16/21 09/17/21 23:59 23:59 23:59 Intake Total 1600 / 1600 104 / 704 1200 / 1200 Output Total 300 / 300 Balance 1300 / 1300 104 / 704 1200 / 1200 Lab / Micro Data Result Diagrams: 09/16/21 06:05 09/17/21 04:55 Labs: Laboratory Results - last 24 hr 09/17/21 04:55: Sodium 141, Potassium 3.3 L, Chloride 107, Carbon Dioxide 27.0, Anion Gap 7, BUN 8, Creatinine 0.57 L, Estim Creat Clear Calc 184.99, Est GFR (MDRD) Af Amer 209, Est GFR (MDRD) Non-Af 173, BUN/Creatinine Ratio 14.1, Glucose 86, Calcium 7.9 L, Total Bilirubin 0.40, AST 304 H, ALT 325 H, Alkaline Phosphatase 99, Total Protein 6.0 L, Albumin 2.5 L, Globulin 3.5, Albumin/Globulin Ratio 0.7 L Physical Exam Narrative Physical exam: General: Alert, Oriented x3, Cooperative, No apparent distress HEENT: Atraumatic Oral: Moist Mucosa Neck: Supple Lungs: Clear to auscultation Cardiovascular: HS I+II, regular, no murmurs Abdomen: Bowel Sounds Present, Soft, Non Tender Extremities: No edema Skin: No rashes, No breakdown Neurological: Grossly intact Psych/Mental Status: Appropriate Assessment & Plan Assessment/Plan (1) Alcohol withdrawal: QUALIFIERS: Complication of substance-induced condition: uncomplicated Qualified Code(s): F10.230 - Alcohol dependence with withdrawal, uncomplicated PLAN: 1. Acute alcohol withdrawal, last CIWA score was 3, Continue on phenobarb taper, folic acid, multivitamin, and thiamine 2. Hypertension, remains uncontrolled, Continue lisinopril, Coreg 25 mg p.o. twice daily Add amlodipine 5 mg daily Continue to monitor blood pressures 3. Hypokalemia, K 3.3, replaced, recheck in am 4. CAD status post PCI/hyperlipidemia Continue on aspirin, lisinopril, Coreg Lipid profile showed triglycerides 165, total cholesterol 189, LDL 91, HDL 65 We will hold off on starting statins; can be followed up in the outpatient 5. Rest of his chronic medical conditions including anxiety/depression, chronic back pain, GERD, nicotine dependence appears to be stable for now Continue on nicotine patch, Tylenol as needed for pain 6. DVT prophylaxis: low risk, encourage ambulation. Charges/Coding Visit Charges Inpatient E&M: 45112 Subs Hosp L2
[2021-09-17] MEDS: Lisinopril 40 MG Tablet PO (10:47)
[2021-09-17] MEDS: Potassium Chloride Oral Tablet 20 MEQ 40 MEQ PO (10:47)
[2021-09-17] MEDS: Carvedilol 25 MG Tablet PO ×2 (10:47→20:58)
[2021-09-17] MEDS: Pantoprazole Sodium 20 MG Tablet PO ×2 (10:47→20:58)
[2021-09-17] MEDS: amLODIPine 5 MG Tablet PO (10:47)
[2021-09-17] MEDS: Baclofen 10 MG Tablet 20 MG PO ×2 (10:47→20:58)
--- NOTE | 2021-09-17 12:22 | CHAPLAIN ---
Type of Pastoral Visit ___ Initial Visit ___ Follow-up Visit ___ On-call Visit ___ General Patient Visit ___ Spiritual Assessment ___ Family Conference ___ Bereavement ___ Rapid Response ___ Code Blue ___ Other (describe below) Pastoral Care Referral From ___ Patient ___ Family ___ Nurse ___ Physician ___ Horse Doctor ___ Principal Bioinformatics Specialist ___ Other (describe below) Sacrament/Intervention ___ Active listening ___ Anointing ___ Worship ___ Bereavement ___ Communion ___ Lizzie exploration ___ ___ Life review ___ Prayer ___ Reconciliation ___ Sacrament of Sick ___ Supportive presence ___ Wedding ___ Other (describe below) Pastoral Comments this machine ii coremaker stopped on Wednesday and again today to see patient; both times pt is sound asleep and does not awaken to his name
[2021-09-18 00:40] VITALS: BP 150/96; PULSE 98; RESP 18; TEMP 36.9; O2SAT 97
[2021-09-18] MEDS: traZODone 100 MG Tablet PO (00:44)
[2021-09-18] MEDS: Phenobarbital 32.4 MG Tablet PO ×2 (00:44→06:47)
--- NOTE | 2021-09-18 07:17 | PCM.DC ---
Discharge Instructions Diet Discharge Diet: Low fat / Low cholesterol and 2000 mg Sodium Diet Activity Discharge Activity: Return to Normal Activity Follow Up Care Test Results: Test results from this visit will be discussed in further detail at your follow-up appointment, if applicable. Discharge Plan Admission Admit Date/Time: 09/14/21 20:19 Primary Reason for Your Visit: Acute alcohol withdrawal Attending Provider: Sunitha Cruz Primary Care Provider: Lamar Aragon Consulting Providers: Francheska Real Discharge Orders/Prescriptions Prescriptions: New carvedilol 25 mg Tablet 25 mg PO BID 30 Days Qty: 60 RF: 0 aspirin 81 mg Tablet,Chewable 81 mg PO BREAKFAST 30 Days Qty: 30 RF: 0 amlodipine 10 mg tablet 10 mg PO DAILY 30 Days Qty: 30 RF: 0 Continued baclofen 20 mg tablet 20 mg PO BID RF: 0 lisinopril 40 mg tablet 40 mg PO DAILY RF: 0 ibuprofen 600 MG tablet 600 mg PO Q8 RF: 0 omeprazole 20 mg Capsule,Delayed Release(Dr/Ec) 20 mg PO BID RF: 0 Referrals / Follow Up: Lamar Aragon, MELINDA-C [Primary Care Provider] - Within 1 Week Disposition Disposition (needs filled in before D/C Order can be placed): Home, Self Care
--- NOTE | 2021-09-18 07:42 | PCM.DC.SUM ---
Providers Date of Admission: 09/14/21 Date of Discharge: 09/18/21 Primary Care Physician: LESLIE Hobbs Reason For Visit: ACUTE ETOH WITHDRAWAL Diagnosis Discharge Diagnosis (1) Alcohol withdrawal: Status: Acute Code(s): F10.239 - Alcohol dependence with withdrawal, unspecified Qualifiers: Complication of substance-induced condition: uncomplicated Qualified Code(s): F10.230 - Alcohol dependence with withdrawal, uncomplicated (2) Acute hypokalemia: Status: Acute Code(s): E87.6 - Hypokalemia (3) Pancytopenia: Status: Acute Code(s): D61.818 - Other pancytopenia (4) Uncontrolled hypertension: Status: Acute Code(s): I10 - Essential (primary) hypertension Medications at Discharge Home Medications baclofen 20 mg PO BID 11/02/20 lisinopril 40 mg PO DAILY 11/02/20 ibuprofen 600 mg PO Q8 05/12/21 omeprazole 20 mg PO BID 09/14/21 amlodipine 10 mg PO DAILY 30 Days #30 tab 09/18/21 aspirin 81 mg PO BREAKFAST 30 Days #30 tab 09/18/21 carvedilol 25 mg PO BID 30 Days #60 tab 09/18/21 Hospital Course Operations None Procedures None Summary of Care Provided Minutes Spent on Discharge: 35 Hospital Course: 36-year-old male past medical history of CAD, hypertension, GERD, chronic alcohol abuse with history of alcohol withdrawal seizures who comes in requesting for medical stabilization from acute alcohol withdrawal. Patient admits to drinking about half a gallon of bourbon daily. His last intake was earlier on prior to admission. He presented with mild nausea, tremors, agitation and fatigue. Patient was admitted to the [facility] floor and monitored alcohol withdrawal protocol. He had episodes of elevated blood pressure requiring adjustment in his antihypertensive. He also had hypokalemia that was replaced. Patient had elevated liver function likely related to chronic alcohol use/liver disease. Patient was seen by addiction medicine and was discharged to [facility] for follow-up treatment services. He was counselled to follow-up with his PCP/basket person within 2 weeks. Physical Exam Narrative Physical exam: General: Alert, Oriented x3, Cooperative HEENT: Atraumatic Oral: Moist Mucosa Neck: Supple Lungs: Clear to auscultation Cardiovascular: HS I+II, regular, no murmurs Abdomen: Bowel Sounds Present, Soft, Non Tender Extremities: No edema Skin: No rashes, No breakdown Neurological: Grossly intact Psych/Mental Status: Appropriate Weight / BMI Weight Weight: 85.6 kg Body Mass Index (BMI) 27.1 ABG / Lab / Microbiology Data Result Diagrams: 09/16/21 06:05 09/17/21 04:55 D/C Instructions Discharge Diet: Low fat / Low cholesterol and 2000 mg Sodium Diet Meaningful Use Info Meaningful Use Diagnoses (Choose all that apply): None applicable Discharge Plan Admission Admit Date/Time: 09/14/21 20:19 Primary Reason for Your Visit: Acute alcohol withdrawal Attending Provider: Sunitha Cruz Primary Care Provider: Lamar Aragon Consulting Providers: Francheska Real Discharge Orders/Prescriptions Prescriptions: New carvedilol 25 mg Tablet 25 mg PO BID 30 Days Qty: 60 RF: 0 aspirin 81 mg Tablet,Chewable 81 mg PO BREAKFAST 30 Days Qty: 30 RF: 0 amlodipine 10 mg tablet 10 mg PO DAILY 30 Days Qty: 30 RF: 0 Continued baclofen 20 mg tablet 20 mg PO BID RF: 0 lisinopril 40 mg tablet 40 mg PO DAILY RF: 0 ibuprofen 600 MG tablet 600 mg PO Q8 RF: 0 omeprazole 20 mg Capsule,Delayed Release(Dr/Ec) 20 mg PO BID RF: 0 Referrals / Follow Up: Lamar Aragon NP-C [Primary Care Provider] - Within 1 Week Disposition Disposition (needs filled in before D/C Order can be placed): Home, Self Care Charges/Coding Visit Charges Inpatient E&M: 85976 Disch Hosp
[2021-09-18 07:50] VITALS: O2SAT 95
[2021-09-18] MEDS: Carvedilol 25 MG Tablet PO (07:59)
[2021-09-18] MEDS: Baclofen 10 MG Tablet 20 MG PO (07:59)
[2021-09-18] MEDS: Thiamine Hydrochloride 100 MG Tablet PO (07:59)
[2021-09-18] MEDS: Aspirin 81 MG TAB.CHEW PO (07:59)
[2021-09-18] MEDS: Folic Acid 1 MG Tablet PO (07:59)
[2021-09-18] MEDS: Pantoprazole Sodium 20 MG Tablet PO (07:59)
[2021-09-18] MEDS: Lisinopril 40 MG Tablet PO (07:59)
[2021-09-18] MEDS: amLODIPine 10 MG Tablet PO (08:01)
[2021-09-18 08:32] VITALS: BP 146/107; PULSE 82; RESP 16; TEMP 36.5; O2SAT 96
== END 2021-09-18 11:23 | disposition home or self-care (01) ==
LOC: ED 20:18 → MS3 09-15 07:06
PROVIDERS: Admitting Provider Family Medicine; Emergency Provider Emergency Medicine; PCP Nurse Practitioner Family; Visit Provider Internal Medicine
DX: F10.230 Alcohol dependence with withdrawal, uncomplicated (principal); D61.818 Other pancytopenia; E78.5 Hyperlipidemia, unspecified; I10 Essential (primary) hypertension; F17.210 Nicotine dependence, cigarettes, uncomplicated; I25.10 Atherosclerotic heart disease of native coronary artery without angina pectoris; K21.9 Gastro-esophageal reflux disease without esophagitis; E87.6 Hypokalemia; Z79.899 Other long term (current) drug therapy
CPT/HCPCS: 36415; 80053; 80061; 80307; 82077; 83735; 84100; 85025; 85610; 93005; 94640; 99285; 99406; H0012; J7120; A4216

== ENCOUNTER 2022-03-08 15:40 | Inpatient (IN) | payer MEDICAID, SELFPAY ==
[2022-03-08 15:41] VITALS: BP 131/51; PULSE 118; RESP 21; TEMP 36.4; O2SAT 94; BMI 28.8
--- NOTE | 2022-03-08 15:53 | EX.ED.DYSGE1 ---
HPI History of Present Illness Chief Complaint: Suicidal Narrative Narrative: Patient was found at a motel 8 quite combative apparently his checkout time was at 11 and police were called since he refused to check out of his room. Police had to break down the door since the patient was quite combative even in the room. He apparently needed restraint by multiple police officers she was fighting screaming telling him that he was going to kill himself and kill them. He arrives to the ED quite loud and quite aggressive and agitated. He is immediately placed in four-point leather restraints by nurses for his protection. PFSH PFS Medical History Admitted to alcohol detoxification center Alcohol dependence Alcohol intoxication Alcohol withdrawal Anxiety CAD (coronary artery disease) Depression ETOH abuse GERD (gastroesophageal reflux disease) Hernia Hypertension Jaundice Kidney stones Seizures Smoker Home Medications baclofen 20 mg tablet 20 mg PO BID neuro- back spams 11/02/20 [History Last Taken 09/07/21] lisinopril 40 mg tablet 40 mg PO DAILY HTN 11/02/20 [History Last Taken 09/13/21] ibuprofen 600 mg tablet 600 mg PO Q8 pain 05/12/21 [History Last Taken 05/11/21] omeprazole 20 mg capsule,delayed release 20 mg PO BID GERD 09/14/21 [History Last Taken 09/07/21] amlodipine 10 mg tablet 10 mg PO DAILY 30 days #30 tabs 09/18/21 [Rx Last Taken Unknown] aspirin 81 mg chewable tablet 81 mg PO BREAKFAST 30 days #30 tabs 09/18/21 [Rx Last Taken Unknown] carvedilol 25 mg tablet 25 mg PO BID 30 days #60 tabs 09/18/21 [Rx Last Taken Unknown] Allergy/AdvReac Type Severity Reaction Status Date / Time Penicillins [PCN] AdvReac Unknown Verified 09/14/21 19:44 Family History Mother Emphysema of lung Father Hereditary spastic paraplegia Other Alcoholism in family member Surgical History History of appendectomy History of coronary artery stent placement Social History household members: none housing: apartment Smoking Status: Current every day smoker tobacco type: cigarettes Smokeless tobacco user: other alcohol intake: current alcohol intake frequency: 3 or more drinks per day Alcohol type: beer, wine and hard liquor details: Currently primarily 1/2 gallon [place] daily, intermittent also beer/wine. substance use type: does not use ROS ROS ED Review of Systems ROS Unobtainable: due to mental status EXAM Physical Exam Narrative Exam Narrative: Physical exam General: Patient is quite agitated. He initially does not allow any a physical exam, after Haldol I examined him. Head: Normocephalic, Atraumatic Eyes: Conjunctiva not pale ENT: Moist mucous membranes Neck: Supple, Nontender, No lymphadenopathy Cardiovascular: Regular rate, Regular rhythm Respiratory: No distress, CTA bilaterally Abdomen: Soft, Nontender, Nondistended Back: Nontender, Normal Inspection. Negative for: CVA tenderness Extremities: Nontender, No edema Skin: Normal color, No rash Neurological: Alert, Normal Strength, Normal Sensation Psychological: Patient still will not talk to me, he just tells me that we were very aggressive with him but refuses to tell me if he wants to hurt himself and refuses to answer any other questions. Const Vital Signs: 03/08/22 15:41 03/08/22 16:40 03/08/22 17:40 Temperature 97.5 F L Temperature Source Temporal Pulse Rate 118 H 91 88 Respiratory Rate 21 H 18 16 Blood Pressure 131/51 H 134/77 H 126/75 H Blood Pressure Mean 77 96 92 Pulse Ox 94 100 98 Oxygen Delivery Method Room Air Room Air Room Air 03/08/22 18:00 03/08/22 19:00 03/08/22 20:00 Temperature Temperature Source Pulse Rate 91 106 H Respiratory Rate 16 18 19 H Blood Pressure 140/68 H 137/79 H Blood Pressure Mean 92 98 Pulse Ox 97 98 Oxygen Delivery Method Room Air Room Air Room Air MDM MDM MDM Narrative Medical decision making narrative: Patient is found to be quite intoxicated. Because initially he was a danger to himself he was quite combative wanted to leave which clearly was unsafe we had to restrain him. I also gave him Haldol. He is now calm and collected and sleeping, he was taken out of his restraints. He did make multiple claims to hurt himself so he will get a psychiatric evaluation in the morning when sober, however for now we will continue to observe him. Lab Data Labs: Laboratory Results - last 24 hr 03/08/22 03/08/22 03/08/22 16:15 16:50 16:50 WBC 3.0 L RBC 5.12 Hgb 15.8 Hct 46.1 MCV 90.0 MCH 30.9 MCHC 34.3 RDW Std Deviation 47.0 H RDW Coeff of Srinivasa 14.2 Plt Count 177 MPV 9.7 Immature Gran % (Auto) 0.300 Neut % (Auto) 44.6 L Lymph % (Auto) 42.2 H [place] % (Auto) 10.3 H Eos % (Auto) 1.3 Baso % (Auto) 1.3 H Absolute Neuts (auto) 1.3 L Absolute Lymphs (auto) 1.27 Nucleated RBC % 0 Sodium 142 Potassium 3.7 Chloride 106 Carbon Dioxide 21.0 Anion Gap 15 BUN 9 Creatinine 0.70 Estim Creat Clear Calc 149.19 Est GFR (MDRD) Af Amer 164 Est GFR (MDRD) Non-Af 136 BUN/Creatinine Ratio 12.9 Glucose 88 Calcium 8.5 Urine Opiates Screen NEGATIVE Urine Methadone Screen NEGATIVE Ur Barbiturates Screen NEGATIVE Ur Phencyclidine Scrn NEGATIVE Ur Amphetamines Screen NEGATIVE MDMA (Ecstasy) Screen NEGATIVE U Benzodiazepines Scrn NEGATIVE Urine Cocaine Screen NEGATIVE U Cannabinoids Screen NEGATIVE Ur Drug Screen Comment Ethyl Alcohol 03/08/22 16:50 WBC RBC Hgb Hct MCV MCH MCHC RDW Std Deviation RDW Coeff of Srinivasa Plt Count MPV Immature Gran % (Auto) Neut % (Auto) Lymph % (Auto) [place] % (Auto) Eos % (Auto) Baso % (Auto) Absolute Neuts (auto) Absolute Lymphs (auto) Nucleated RBC % Sodium Potassium Chloride Carbon Dioxide Anion Gap BUN Creatinine Estim Creat Clear Calc Est GFR (MDRD) Af Amer Est GFR (MDRD) Non-Af BUN/Creatinine Ratio Glucose Calcium Urine Opiates Screen Urine Methadone Screen Ur Barbiturates Screen Ur Phencyclidine Scrn Ur Amphetamines Screen MDMA (Ecstasy) Screen U Benzodiazepines Scrn Urine Cocaine Screen U Cannabinoids Screen Ur Drug Screen Comment Ethyl Alcohol 420.0 H* Discharge Plan Triage Chief Complaint: Suicidal ED Provider: Vito Linares Dx/Rx/DC Orders Clinical Impression: Agitation, Alcohol intoxication, Psychosis, Tachycardia Prescriptions: No Action baclofen 20 mg tablet 20 mg PO BID Label Comments: TAKE 1 TABLET BY MOUTH TWICE DAILY lisinopril 40 mg tablet 40 mg PO DAILY Label Comments: TAKE 1 TABLET BY MOUTH ONCE DAILY ibuprofen 600 MG tablet 600 mg PO Q8 omeprazole 20 mg Capsule,Delayed Release(Dr/Ec) 20 mg PO BID carvedilol 25 mg Tablet 25 mg PO BID 30 Days Qty: 60 0RF aspirin 81 mg Tablet,Chewable 81 mg PO BREAKFAST 30 Days Qty: 30 0RF amlodipine 10 mg tablet 10 mg PO DAILY 30 Days Qty: 30 0RF Primary Care Provider: Lamar Aragon Referrals: Lamar Aragon, CRIMINOLOGY PROFESSOR-C [Primary Care Provider] -
[2022-03-08] MEDS: DiphenhydrAMINE 50 MG/ML Syringe IM (15:57)
[2022-03-08] MEDS: Haloperidol Lactate 5 MG/ML Vial 10 MG IM (15:57)
[2022-03-08 16:39] LABS: Amphetamine Urine VISTA NEGATIVE (<1000 ng/mL); Barbiturate Urine VISTA NEGATIVE (< 200 ng/mL); Benzodiazepine Urine VISTA NEGATIVE (< 200 ng/mL); Cocaine Urine VISTA NEGATIVE (< 300 ng/mL); Ecstacy Urine VISTA NEGATIVE (< 500 ng/mL); Methadone Urine VISTA NEGATIVE (< 300 ng/mL); PCP Urine VISTA NEGATIVE (< 25 ng/mL); THC Urine VISTA NEGATIVE (< 50 ng/mL); Vista UDS pH Range 6
[2022-03-08 16:40] VITALS: BP 134/77; PULSE 91; RESP 18; O2SAT 100
[2022-03-08 17:10] LABS: Absolute Lymphocyte Count 1.27 X10^3/uL (0.83-4.51); Absolute Neutrophil Count 1.3 X10^3/uL (2.0-7.7); Basophil# 0.04 X10^3/uL; Basophil% 1.3 % (0-1); Eosinophil# 0.04 X10^3/uL; Eosinophils% 1.3 % (0-5); Hematocrit 46.1 % (40-54); Hemoglobin 15.8 g/dL (13.0-16.5); Lymphocyte # 1.27 X10^3/ul (0.83-4.51); Lymphocyte % 42.2 % (19-41); Mean Corp Hgb Conc 34.3 g/dL (32-36); Mean Corpuscular Hgb 30.9 pg (27.0-32.0); Mean Platelet Vol. 9.7 fl (6.2-12.0); Monocyte# 0.31 X10^3/uL; Monocyte% 10.3 % (0-10); NRBC Flagged by Analyzer 0 % (0-5); Neutrophil # 1.34 X10^3/uL (2.7-7.7); Neutrophil % 44.6 % (47-70); Platelet Count 177 K/mm3 (150-450); RBC Distribution Width CV 14.2 % (11.6-14.6); Red Blood Count 5.12 M/mm3 (4.6-6.2)
[2022-03-08 17:20] LABS: Anion Gap 15 (5-15); BUN 9 mg/dL (7-18); BUN/Creat Ratio 12.9 RATIO (10-20); Calcium,Total 8.5 mg/dL (8.5-10.1); Chloride 106 mmol/L (98-107); EST Glomerular Filtration Rate 136 mL/min (>60); Est Glom Filt Rate - Afr Amer 164 mL/min (>60); Estimated Creatinine Clearance 149.19 ml/min; Glucose 88 mg/dL (74-106); Potassium 3.7 mmol/L (3.5-5.1); Sodium Level 142 mmol/L (136-145)
[2022-03-08 17:40] VITALS: BP 126/75; PULSE 88; RESP 16; O2SAT 98
[2022-03-08 18:00] VITALS: BP 140/68; PULSE 91; RESP 16; O2SAT 97
[2022-03-08 19:00] VITALS: BP 137/79; PULSE 106; RESP 18; O2SAT 98
--- NOTE | 2022-03-08 19:58 | ED.RN ---
Pt came into this ER handcuffed with PD and medic 1. Pt grabbing and yelling at PD and staff. Refusing to cooperate and comply with RN, PD and MD demands. Pt laughing uncontrollably and stating the voices want to make him kill himself. Pt is given medication and placed into restraints for pt and staff safety. Pt continues to scream at staff and biting at restraints. Pt unwilling to calm down at this moment. Pt is yelling at other staff walking by room and patients. 1931--Pt slowly starts to calm down. Pt is starting to comply and stopped yelling. R wrist and L ankle taken out of restraints, pt continues to show that he can stay calm and cooperate. Pt no longer grabbing at staff. 1944-- pt taken out of restraints. Pt given more water and snacks. Pt is laying calmly in bed.
[2022-03-08 20:00] VITALS: RESP 19
[2022-03-09] MEDS: LORazepam 1 MG Tablet PO (03:12)
[2022-03-09 03:15] VITALS: BP 153/99; PULSE 109; RESP 18; TEMP 36.8; O2SAT 100
[2022-03-09] MEDS: LORazepam 2 MG/ML Syringe 1 MG IV (05:03)
[2022-03-09] MEDS: Ondansetron 4 MG/2 ML Vial IV (05:03)
--- NOTE | 2022-03-09 05:08 | HP.PCM.HOS_ITS ---
HPI - General General Date of Service: 03/09/22 Chief Complaint: suicidal ideation. HPI Narrative GERDA MCGHEE, is a 37 M who presents with threat to kill himself. Patient was staying in a motel 8 and was passed his checkout time. Please were called and authoritatively broken down. When they arrived, the patient was fighting them yelling that he was going to kill himself and kill them. Patient was then brought to the emergency room and placed in four-point restraints. He had received Haldol and Benadryl. Patient's alcohol level was 420 plan was to let h im sober up and have crisis see him. The hospital service was contacted for admission as patient started to develop alcohol withdrawal. Patient drinks a half a gallon of bourbon a day. He started having tremors, abdominal cramps and did receive Ativan for his withdrawal. Patient is expressing desire to be sober. Patient had been sober after his visit in September and was sober for 4 months and then started drinking again last month. [facility] Medical History Admitted to alcohol detoxification center Alcohol dependence Alcohol intoxication Alcohol withdrawal Anxiety CAD (coronary artery disease) Depression ETOH abuse GERD (gastroesophageal reflux disease) Hernia Hypertension Jaundice Kidney stones Seizures Smoker Home Medications baclofen 20 mg tablet 20 mg PO BID neuro- back spams 11/02/20 [History Last Taken 09/07/21] lisinopril 40 mg tablet 40 mg PO DAILY HTN 11/02/20 [History Last Taken 09/13/21 ] ibuprofen 600 mg tablet 600 mg PO Q8 pain 05/12/21 [History Last Taken 05/11/21] omeprazole 20 mg capsule,delayed release 20 mg PO BID GERD 09/14/21 [History Last Taken 09/07/21] amlodipine 10 mg tablet 10 mg PO DAILY 30 days #30 tabs 09/18/21 [Rx Last Taken Unknown] aspirin 81 mg chewable tablet 81 mg PO BREAKFAST 30 days #30 tabs 09/18/21 [Rx Last Taken Unknown] carvedilol 25 mg tablet 25 mg PO BID 30 days #60 tabs 09/18/21 [Rx Last Taken Unknown] Allergy/AdvReac Type Severity Reaction Status Date / Time Penicillins [PCN] AdvReac Unknown Verified 09/14/21 19:44 Family History Mother Emphysema of lung Father Hereditary spastic paraplegia Other Alcoholism in family member Surgical History History of appendectomy History of coronary artery stent placement Social History household members: none housing: apartment Smoking Status: Current every day smoker tobacco type: cigarettes Smokeless tobacco user: other alcohol intake: current alcohol intake frequency: 3 or more drinks per day Alcohol type: beer, wine and hard liquor details: Currently primarily 1/2 gallon [place] daily, intermittent also beer/wine. substance use type: does not use ROS ROS Narrative All review of systems were negative except as mentioned above in the history of present illness and the other review of systems. Vital Signs Vital Signs Vital Signs: 03/08/22 15:41 03/08/22 16:40 03/08/22 17:40 Temperature 36.4 C L Temperature Source Temporal Pulse Rate 118 H 91 88 Respiratory Rate 21 H 18 16 Blood Pressure 131/51 H 134/77 H 126/75 H Blood Pressure Mean 77 96 92 Pulse Ox 94 100 98 Oxygen Delivery Method Room Air Room Air Room Air 03/08/22 18:00 03/08/22 19:00 03/08/22 20:00 Temperature Temperature Source Pulse Rate 91 106 H Respiratory Rate 16 18 19 H Blood Pressure 140/68 H 137/79 H Blood Pressure Mean 92 98 Pulse Ox 97 98 Oxygen Delivery Method Room Air Room Air Room Air 03/09/22 03:15 Temperature 36.8 C Temperature Source Oral Pulse Rate 109 H Respiratory Rate 18 Blood Pressure 153/99 H Blood Pressure Mean 117 Pulse Ox 100 Oxygen Delivery Method Room Air Weight Weight: 91 kg Body Mass Index (BMI) 28.8 Physical Exam Const alert Constitutional Narrative: Disheveled. Tremulous. HEENT normocephalic and head/scalp atraumatic Resp normal respiratory effort, no retractions, no use of accessory muscles and clear to auscultation bilaterally Cardio regular rate, regular rhythm, S1 normal heart sound and S2 normal heart sound GI normal to inspection, nondistended, normoactive bowel sounds, soft to palpation, non-tender, non-distended and hepatosplenomegaly Extremity normal to inspection and no clubbing, cyanosis or edema Neuro moves all extremities and no focal motor deficits Psych Mood & Affect: anxious Results Lab / Micro Data Result Diagrams: 03/08/22 16:50 03/08/22 16:50 Labs: Laboratory Results - last 24 hr 03/08/22 16:15: Urine Opiates Screen NEGATIVE, Urine Methadone Screen NEGATIVE, Ur Barbiturates Screen NEGATIVE, Ur Phencyclidine Scrn NEGATIVE, Ur Amphetamines Screen NEGATIVE, MDMA (Ecstasy) Screen NEGATIVE, U Benzodiazepines Scrn NEGATIVE, Urine Cocaine Screen NEGATIVE, U Cannabinoids Screen NEGATIVE, Ur Drug Screen Comment 03/08/22 16:50: WBC 3.0 L, RBC 5.12, Hgb 15.8, Hct 46.1, MCV 90.0, MCH 30.9, MCHC 34.3, RDW Std Deviation 47.0 H, RDW Coeff of Srinivasa 14.2, Plt Count 177, MPV 9.7, Immature Gran % (Auto) 0.300, Neut % (Auto) 44.6 L, Lymph % (Auto) 42.2 H, [place] % (Auto) 10.3 H, Eos % (Auto) 1.3, Baso % (Auto) 1.3 H, Absolute Neuts (auto) 1.3 L, Absolute Lymphs (auto) 1.27, Nucleated RBC % 0 03/08/22 16:50: Sodium 142, Potassium 3.7, Chloride 106, Carbon Dioxide 21.0, Anion Gap 15, BUN 9, Creatinine 0.70, Estim Creat Clear Calc 149.19, Est GFR (MDRD) Af Amer 164, Est GFR (MDRD) Non-Af 136, BUN/Creatinine Ratio 12.9, Glucose 88, Calcium 8.5 03/08/22 16:50: Ethyl Alcohol 420.0 H* Assessment & Plan Assessment/Plan (1) Alcohol withdrawal: QUALIFIERS: Complication of substance-induced condition: uncomplicated Qualified Code(s): F10.930 - Alcohol use, unspecified with withdrawal, uncomplicated PLAN: Patient was intoxicated when he initially arrived around 3 PM on the . But since then, patient has started going to some alcohol withdrawal symptoms. He did receive some lorazepam. Patient will be started on be RAMP. He will be on a phenobarbital taper as well as have other medications for other somatic complaints with his withdrawal. Addiction medicine to see to help with outpatient programs. Patient is expressing a desire to be sober. It is unclear to me if this is actually genuine after his encounter with police yesterday. (2) Suicidal ideation: PLAN: Patient did not have a sitter in the ED when I had seen him despite his chief complaint being suicidal. Patient denies it at present. But given his interaction with police this will need to be cleared by crisis before we can remove a sitter. Patient has been very impulsive from previous encounters. My encounter with him from July 28, 2020: This patient clearly has psychiatric issues weather it be depression, anxiety, borderline personality, etc.) that require further stabilization. Until there are adequately addressed, he will continue to fail in maintaining sobriety. Additionally, his abrasive and intimidating behavior, I feel, could rapidly escalate and could be a potential threat to staff. PLAN: Plan VTE prophylaxis: Not indicated. Ambulate Charges/Coding Visit Charges Inpatient E&M: 18850 Init Hosp L2
[2022-03-09 05:33] LABS: AST(SGOT) 214 U/L (15-37); Alanine Aminotransfer ALT/SGPT 232 U/L (16-61); Albumin, Serum 3.5 g/dL (3.2-5.0); Alkaline Phosphatase 139 U/L (45-117); Bilirubin, Direct 0.27 mg/dL (0.00-0.30); Globulin 4.2 g/dL (2.2-4.2); Protein, Total 7.7 g/dL (6.4-8.2)
[2022-03-09 06:05] VITALS: BP 148/78; PULSE 98; RESP 18; TEMP 36.7; O2SAT 97
[2022-03-09 06:28] VITALS: BMI 25.6
[2022-03-09 06:38] VITALS: BP 146/91; PULSE 105; RESP 18; TEMP 37.1; O2SAT 95
[2022-03-09] MEDS: hydrOXYzine PAM 25 MG Capsule 50 MG PO ×3 (06:40→22:13)
[2022-03-09] MEDS: Gabapentin 300 MG Capsule PO ×2 (06:40→22:15)
[2022-03-09] MEDS: Phenobarbital 32.4 MG Tablet 64.8 MG PO ×5 (06:40→22:13)
[2022-03-09] MEDS: Thiamine Hydrochloride 100 MG Tablet PO (06:40)
[2022-03-09] MEDS: Folic Acid 1 MG Tablet PO (06:41)
--- NOTE | 2022-03-09 07:39 | PN.HOSP_ITS ---
Subjective Subjective DOS: 03/09/2022 CC: I do not feel well Reports he has begun feeling shaky and unwell. Discussed events of yesterday and he reports that that was his blackout. And that he does not remember threatening to kill himself or anyone else. Adamant that he is not suicidal denies ever having any suicide attempts in the past or thoughts of hurting himself.Endorses that he was sober for period of time but has been drinking for the past month and has escalated to half a gallon of bourbon a day. Does report desire to quit. Would like to pursue inpatient rehab. Denies nausea or vomiting, no changes in bowel or bladder. Mostly just feels generally unwell and slightly shaky. Objective Data Objective Data Vital Signs: Vital Signs Temp Pulse Resp BP Pulse Ox O2 Del Method 98.7 F 105 H 18 146/91 H 95 Room Air 03/09/22 06:38 03/09/22 06:38 03/09/22 06:38 03/09/22 06:38 03/09/22 06:38 03/09/22 06:38 Oxygen Delivery Method Room Air Weight: 81.1 kg Body Mass Index (BMI) 25.6 Lab / Micro Data Result Diagrams: 03/08/22 16:50 03/08/22 16:50 Labs: Laboratory Results - last 24 hr 03/08/22 16:15: Urine Opiates Screen NEGATIVE, Urine Methadone Screen NEGATIVE, Ur Barbiturates Screen NEGATIVE, Ur Phencyclidine Scrn NEGATIVE, Ur Amphetamines Screen NEGATIVE, MDMA (Ecstasy) Screen NEGATIVE, U Benzodiazepines Scrn NEGATIVE, Urine Cocaine Screen NEGATIVE, U Cannabinoids Screen NEGATIVE, Ur Drug Screen Comment 03/08/22 16:50: WBC 3.0 L, RBC 5.12, Hgb 15.8, Hct 46.1, MCV 90.0, MCH 30.9, MCHC 34.3, RDW Std Deviation 47.0 H, RDW Coeff of Srinivasa 14.2, Plt Count 177, MPV 9.7, Immature Gran % (Auto) 0.300, Neut % (Auto) 44.6 L, Lymph % (Auto) 42.2 H, [place] % (Auto) 10.3 H, Eos % (Auto) 1.3, Baso % (Auto) 1.3 H, Absolute Neuts (auto) 1.3 L, Absolute Lymphs (auto) 1.27, Nucleated RBC % 0 03/08/22 16:50: Sodium 142, Potassium 3.7, Chloride 106, Carbon Dioxide 21.0, Anion Gap 15, BUN 9, Creatinine 0.70, Estim Creat Clear Calc 149.19, Est GFR (MDRD) Af Amer 164, Est GFR (MDRD) Non-Af 136, BUN/Creatinine Ratio 12.9, Glucose 88, Calcium 8.5 03/08/22 16:50: Ethyl Alcohol 420.0 H* 03/09/22 04:57: Total Bilirubin 0.70, Direct Bilirubin 0.27, AST 214 H, ALT 232 H, Alkaline Phosphatase 139 H, Total Protein 7.7, Albumin 3.5, Globulin 4.2 03/09/22 04:57: Ethyl Alcohol 10.0 Physical Exam Const alert and oriented x3 HEENT moist oral mucous membranes Eyes Eyes Narrative: EOM grossly intact bilaterally Neck supple Resp normal respiratory effort and clear to auscultation bilaterally Cardio regular rhythm Cardio Narrative: Very mildly tachycardic GI non-tender and non-distended Extremity normal to inspection Neuro moves all extremities Neuro Narrative: No overt focal neurological deficits appreciated, no asterixis or significant tremors at this time, does have a very slight tremor in outstretched hands Assessment & Plan Assessment/Plan (1) Alcohol withdrawal: QUALIFIERS: Complication of substance-induced condition: uncomplicated Qualified Code(s): F10.930 - Alcohol use, unspecified with withdrawal, uncomplicated (2) Alcohol intoxication: PLAN: Plan Patient is a 37-year-old male with history of alcohol dependence, coronary arter y disease, hypertension, kidney stones and GERD who presented 03/09/2022 with suicidal ideation. He was staying in a [place] [address] and was past this checkout time. Authorities were called and when they arrived he was fighting them and yelling that he was going to kill himself and then numb. Brought to the ER placed in four-point restraints and received Haldol and Benadryl. Alcohol level 420 at that time. Reportedly was drinking half a gallon of bourbon a day and expressed desire to be sober. Had been sober after his visit in September sober for 4 months but started drinking again last month. #1. Alcohol withdrawal in the setting of alcohol dependence Intoxicated when he arrived with alcohol level of 420 but reported he would like to be sober Was started on-ramp with phenobarb taper as well as other medications for somatic complaints and withdrawal Addiction medicine to see with outpatient programs Folic acid, thiamine #2. Suicidal ideation Denied suicidal ideation on evaluation in the ER but given interaction with police needs to be cleared by crisis before sitter can be removed Has a history of being very impulsive Has creases evaluation pending Currently is denying any suicidal or homicidal ideation, reports he does not remember this Will await evaluation for further management #3 elevated liver enzymes Improving, possibly secondary to alcohol use Continue CMP's daily Most recent hepatitis panel in 2020 within normal limits Can consider right upper quadrant ultrasound #DVT ppx: Not indicated, ambulatory and low risk Kristy Vu MD Charges/Coding Visit Charges Inpatient E&M: 93839 Subs Hosp L2
--- NOTE | 2022-03-09 09:06 | CASEMGMT ---
Social Work SW informed through consult and by charge Nurse, Shila, that pt came into hospital last night with suicidal ideation and high alcohol content. Shila reported pt's feels pt is more stable this morning now that his alcohol levels are decreased and inquired about if pt still needs crisis evaluation and a sitter. OTF, Shila and ELLA Tyson discussed pt being suicidal and the history of these feelings for pt. This SW does not feel comfortable without crisis evaluation for pt at this time. All in agreement pt should be seen by crisis before the sitter is removed for pt's own safety. [facility] and requested an evaluation for pt at this time. Will await call back from crisis to determine next steps for pt. BRANDON Marte
[2022-03-09 10:00] VITALS: BP 149/93; PULSE 107; RESP 16; TEMP 37.1; O2SAT 98
[2022-03-09 15:07] VITALS: BP 140/98; PULSE 92; RESP 16; TEMP 37.1; O2SAT 98
[2022-03-09 18:17] VITALS: BP 141/92; PULSE 98; RESP 16; TEMP 37.2; O2SAT 98
[2022-03-09] MEDS: traZODone 100 MG Tablet PO (22:13)
--- NOTE | 2022-03-09 22:47 | NURSING ---
Pt worried about his vehicle still being parked @ [facility] [address] - [address], [place] - this nurse called the motel & the employee I spoke with stated his car would not be towed, that it could stay there until pt out of hospital
[2022-03-10] VITALS: BP 147/99; PULSE 97; RESP 18; TEMP 36.8; O2SAT 95
[2022-03-10] MEDS: Phenobarbital 32.4 MG Tablet 64.8 MG PO ×2 (02:19→05:57)
[2022-03-10] MEDS: hydrOXYzine PAM 25 MG Capsule 50 MG PO ×2 (02:19→10:35)
[2022-03-10 05:48] LABS: Absolute Lymphocyte Count 1.13 X10^3/uL (0.83-4.51); Absolute Neutrophil Count 1.3 X10^3/uL (2.0-7.7); Basophil# 0.02 X10^3/uL; Basophil% 0.7 % (0-1); Eosinophil# 0.06 X10^3/uL; Eosinophils% 2.1 % (0-5); Hematocrit 38.1 % (40-54); Hemoglobin 13.7 g/dL (13.0-16.5); Lymphocyte # 1.13 X10^3/ul (0.83-4.51); Lymphocyte % 40.2 % (19-41); Mean Corpuscular Hgb 31.9 pg (27.0-32.0); Mean Corpuscular Volume 88.8 fL (80-94); Mean Platelet Vol. 10.5 fl (6.2-12.0); Monocyte# 0.27 X10^3/uL; Monocyte% 9.6 % (0-10); NRBC Flagged by Analyzer 0 % (0-5); Neutrophil # 1.33 X10^3/uL (2.7-7.7); Neutrophil % 47.4 % (47-70); Platelet Count 105 K/mm3 (150-450); RBC Distribution Width CV 13.4 % (11.6-14.6); RBC Distribution Width SD 43.9 fl (35.1-43.9); Red Blood Count 4.29 M/mm3 (4.6-6.2); White Blood Count 2.8 K/mm3 (4.4-11.0)
[2022-03-10 05:55] VITALS: BP 132/94; PULSE 79; RESP 18; TEMP 36.7; O2SAT 97
[2022-03-10 06:35] LABS: ALB/GLOB Ratio 0.8 RATIO (0.9-2.4); AST(SGOT) 177 U/L (15-37); Alanine Aminotransfer ALT/SGPT 177 U/L (16-61); Albumin, Serum 3.1 g/dL (3.2-5.0); Alkaline Phosphatase 118 U/L (45-117); Anion Gap 7 (5-15); BUN 9 mg/dL (7-18); BUN/Creat Ratio 14.8 RATIO (10-20); Calcium,Total 9.1 mg/dL (8.5-10.1); Chloride 105 mmol/L (98-107); Creatinine, Serum 0.61 mg/dL (0.70-1.30); EST Glomerular Filtration Rate 158 mL/min (>60); Est Glom Filt Rate - Afr Amer 191 mL/min (>60); Globulin 3.7 g/dL (2.2-4.2); Glucose 93 mg/dL (74-106); Potassium 3.5 mmol/L (3.5-5.1); Protein, Total 6.8 g/dL (6.4-8.2); Sodium Level 137 mmol/L (136-145)
--- NOTE | 2022-03-10 07:34 | PCM.PN.HOSP ---
Subjective Subjective DOS: 03/10/2022 CC: I want to go home Reports today that he is feeling much better, discussed inpatient rehab and he said that he needs to leave prior to doing that because [place] and all he has very dirty sweatpants. Irritable this morning and discussed wanting to leave today. Denies feeling shaky, had no other complaints. Did discuss that crisis still needed to see him and discussed the reason for that. Denies SI/HI this morning and said he only did that because he was extremely intoxicated and blacked out. Objective Data Objective Data Vital Signs: Vital Signs Temp Pulse Resp BP Pulse Ox O2 Del Method 98.1 F 79 18 132/94 H 97 Room Air 03/10/22 05:55 03/10/22 05:55 03/10/22 05:55 03/10/22 05:55 03/10/22 05:55 03/10/22 05:55 Oxygen Delivery Method Room Air Weight: 81.1 kg Body Mass Index (BMI) 25.6 Intake & Output: Intake and Output for Last 24 Hours 03/08/22 03/09/22 03/10/22 23:59 23:59 23:59 Intake Total 520 / 520 Balance 520 / 520 Lab / Micro Data Result Diagrams: 03/10/22 04:42 03/10/22 04:42 Labs: Laboratory Results - last 24 hr 03/10/22 04:42: WBC 2.8 L, RBC 4.29 L, Hgb 13.7, Hct 38.1 L, MCV 88.8, MCH 31.9, MCHC 36.0, RDW Std Deviation 43.9, RDW Coeff of Srinivasa 13.4, Plt Count 105 L, MPV 10.5, Immature Gran % (Auto) 0.000, Neut % (Auto) 47.4, Lymph % (Auto) 40.2, [place] % (Auto) 9.6, Eos % (Auto) 2.1, Baso % (Auto) 0.7, Absolute Neuts (auto) 1.3 L, Absolute Lymphs (auto) 1.13, Nucleated RBC % 0 03/10/22 04:42: Sodium 137, Potassium 3.5, Chloride 105, Carbon Dioxide 25.0, Anion Gap 7, BUN 9, Creatinine 0.61 L, Estim Creat Clear Calc 171.20, Est GFR (MDRD) Af Amer 191, Est GFR (MDRD) Non-Af 158, BUN/Creatinine Ratio 14.8, Glucose 93, Calcium 9.1, Total Bilirubin 0.80, AST 177 H, ALT 177 H, Alkaline Phosphatase 118 H, Total Protein 6.8, Albumin 3.1 L, Globulin 3.7, Albumin/Globulin Ratio 0.8 L Physical Exam Const alert and oriented x3 HEENT moist oral mucous membranes Eyes Eyes Narrative: EOM grossly intact bilaterally Neck supple Resp normal respiratory effort and clear to auscultation bilaterally Cardio regular rate and regular rhythm GI non-distended Extremity normal to inspection Neuro moves all extremities Neuro Narrative: No overt focal neurological deficits appreciated Assessment & Plan Assessment/Plan (1) Alcohol withdrawal: QUALIFIERS: Complication of substance-induced condition: uncomplicated Qualified Code(s): F10.930 - Alcohol use, unspecified with withdrawal, uncomplicated (2) Alcohol intoxication: PLAN: Plan Patient is a 37-year-old male with history of alcohol dependence, coronary artery disease, hypertension, kidney stones and GERD who presented 03/09/2022 with suicidal ideation. He was staying in a [place] [address] and was past this checkout time. Authorities were called and when they arrived he was fighting them and yelling that he was going to kill himself and then numb. Brought to the ER placed in four-point restraints and received Haldol and Benadryl. Alcohol level 420 at that time. Reportedly was drinking half a gallon of bourbon a day and expressed desire to be sober. Had been sober after his visit in September sober for 4 months but started drinking again last month. #1. Alcohol withdrawal in the setting of alcohol dependence Intoxicated when he arrived with alcohol level of 420 but reported he would like to be sober Was started on-ramp with phenobarb taper as well as other medications for somatic complaints and withdrawal Addiction medicine to see with outpatient programs Folic acid, thiamine 03/10/2022: Doing much better today on phenobarb taper, said he does want inpatient rehab but he has things to take care of prior to that. Not tremulous. More irritable today #2. Suicidal ideation?resolved/denies Denied suicidal ideation on evaluation in the ER but given interaction with police needs to be cleared by crisis before sitter can be removed Has a history of being very impulsive Has creases evaluation pending Currently is denying any suicidal or homicidal ideation, reports he does not remember this Will await evaluation for further management 03/10/2022: Doing much better clinically, will have crisis evaluate for further dispo. #3 elevated liver enzymes Improving, possibly secondary to alcohol use Continue CMP's daily Most recent hepatitis panel in 2020 within normal limits Can consider right upper quadrant ultrasound 03/10: LFTs continue to improve. Advised abstinence from alcohol #DVT ppx: Not indicated, ambulatory and low risk Kristy Vu MD Charges/Coding Visit Charges Inpatient E&M: 96479 Subs Hosp L2
[2022-03-10] MEDS: Folic Acid 1 MG Tablet PO (07:40)
[2022-03-10] MEDS: Thiamine Hydrochloride 100 MG Tablet PO (07:40)
--- NOTE | 2022-03-10 09:41 | CASEMGMT ---
Social Work SW notified by Dr. Vu that pt is medically cleared for Crisis Evaluation. SW faxed documents to crisis and called to confirmed the documents had been received. Spoke to photographic process worker who stated would look over the information and then call back to schedule time to evaluate pt. BRANDON Marte
--- NOTE | 2022-03-10 15:38 | CASEMGMT ---
social work Crisis evaluated pt this afternoon and faxed over evaluation report of findings. Crisis stated in report that pt does not meet criteria for Inpatient Psych placement and is not currently suicidal. BRANDON Marte
--- NOTE | 2022-03-10 15:45 | PCM.DC ---
Discharge Instructions Diet Discharge Diet: No restrictions Follow Up Care Test Results: Test results from this visit will be discussed in further detail at your follow-up appointment, if applicable. Discharge Plan Admission Admit Date/Time: 03/09/22 05:03 Primary Reason for Your Visit: Alcohol abuse Attending Provider: Kristy Vu Primary Care Provider: Lamar Aragon Consulting Providers: Ishan Couch Instructions Patient Instructions: Alcohol Addiction, Addiction: Getting Help, Addiction: Your Treatment Options Additional Instructions / Restrictions: ? It is important that you proceed to [facility] upon discharge. ? Continue home blood pressure medications as well as aspirin and omeprazole. Would advise against using baclofen given its sedating properties -Please call your primary care provider's office upon discharge to schedule a hospital follow up within 1 week. -For any concerning signs or symptoms please call 911 or proceed to the nearest emergency department Discharge Orders/Prescriptions Prescriptions: Continued lisinopril 40 mg tablet 40 mg PO DAILY Label Comments: TAKE 1 TABLET BY MOUTH ONCE DAILY omeprazole 20 mg Capsule,Delayed Release(Dr/Ec) 20 mg PO BID carvedilol 25 mg tablet 25 mg PO BID amlodipine 10 mg tablet 10 mg PO DAILY aspirin 81 mg tablet,chewable 81 mg PO BREAKFAST Discontinued baclofen 20 mg tablet 20 mg PO BID Label Comments: TAKE 1 TABLET BY MOUTH TWICE DAILY Referrals / Follow Up: Lamar Aragon, GREENHOUSE INSTRUCTOR-C [Primary Care Provider] - Within 1 Week Disposition Disposition (needs filled in before D/C Order can be placed): Home, Self Care
--- NOTE | 2022-03-10 15:51 | DS.PCM_ITS ---
Providers Date of Admission: 03/09/22 Date of Discharge: 03/10/22 Primary Care Physician: LESLIE Hobbs Reason For Visit: ALCOHOL WITHDRAWL. SUICIDAL IDEATION Diagnosis Discharge Diagnosis (1) Alcohol withdrawal: Status: Acute Code(s): F10.939 - Alcohol use, unspecified with withdrawal, unspecified Qualifiers: Complication of substance-induced condition: uncomplicated Qualified Code(s): F10.930 - Alcohol use, unspecified with withdrawal, uncomplicated (2) Alcohol intoxication: Status: Acute Code(s): F10.929 - Alcohol use, unspecified with intoxication, unspecified Plan #1. Alcohol withdrawal in the setting of alcohol dependence #2. Suicidal ideation?resolved/denies #3 elevated liver enzymes Medications at Discharge Home Medications lisinopril 40 mg tablet 40 mg PO DAILY HTN 11/02/20 omeprazole 20 mg capsule,delayed release 20 mg PO BID GERD 09/14/21 amlodipine 10 mg tablet 10 mg PO DAILY HTN 03/09/22 aspirin 81 mg chewable tablet 81 mg PO BREAKFAST [facility] 03/09/22 carvedilol 25 mg tablet 25 mg PO BID HTN 03/09/22 Hospital Course Summary of Care Provided Minutes Spent on Discharge: 34 Hospital Course: Patient is a 37-year-old male with history of alcohol dependence, coronary artery disease, hypertension, kidney stones and GERD who presented 03/09/2022 after being brought in by the police for yelling that he was going to hurt himself and hurt them while he was intoxicated at a motel. He had been at [address] and was past his checkout time and authorities were called when the events tr anspired. He had an alcohol level of 402. Reportedly was drinking half a gallon of bourbon a day but he reports this was not for significant period of time and did want to get sober. Started on a phenobarb taper which was significantly helpful. He had a sitter and was evaluated but reported he did not remember threatening to hurt himself or anyone else and was adamant that he was not suicidal. Crisis evaluated and felt that he did not need inpatient psychiatric placement. Ultimately he decided to go to [facility]. He was stabilized on the beginning of the phenobarb taper but reports he gets excessively sedated and was refusing doses. He does need to go move his car prior to going to [employer] but he has a bed and is going to inform them when he leaves. Confirmed that he would be able to be managed if he does go back into withdrawal. Discussed with Mr. Washington that he was within the 48 to 72-hour time and that he could go back into withdrawal which can include seiz ures. After discussing risks he verbalized his understanding and still wishes to go and then follow-up immediately for inpatient rehab. Physical Exam Const alert and oriented x3 HEENT moist oral mucous membranes Eyes Eyes Narrative: EOM grossly intact bilaterally Neck supple Resp normal respiratory effort and clear to auscultation bilaterally Cardio regular rate and regular rhythm GI non-distended Extremity normal to inspection Neuro moves all extremities Neuro Narrative: No overt focal neurological deficits appreciated Psych Psych Narrative: Cooperative today Weight / BMI Weight Weight: 81.1 kg Body Mass Index (BMI) 25.6 ABG / Lab / Microbiology Data Result Diagrams: 03/10/22 04:42 03/10/22 04:42 Laboratory: Laboratory Results - last 24 hr 03/10/22 04:42: WBC 2.8 L, RBC 4.29 L, Hgb 13.7, Hct 38.1 L, MCV 88.8, MCH 31.9, MCHC 36.0, RDW Std Deviation 43.9, RDW Coeff of Srinivasa 13.4, Plt Count 105 L, MPV 10.5, Immature Gran % (Auto) 0.000, Neut % (Auto) 47.4, Lymph % (Auto) 40.2, [place] % (Auto) 9.6, Eos % (Auto) 2.1, Baso % (Auto) 0.7, Absolute Neuts (auto) 1.3 L, Absolute Lymphs (auto) 1.13, Nucleated RBC % 0 03/10/22 04:42: Sodium 137, Potassium 3.5, Chloride 105, Carbon Dioxide 25.0, Anion Gap 7, BUN 9, Creatinine 0.61 L, Estim Creat Clear Calc 171.20, Est GFR (MDRD) Af Amer 191, Est GFR (MDRD) Non-Af 158, BUN/Creatinine Ratio 14.8, Glucose 93, Calcium 9.1, Total Bilirubin 0.80, AST 177 H, ALT 177 H, Alkaline Phosphatase 118 H, Total Protein 6.8, Albumin 3.1 L, Globulin 3.7, Albumin/Globulin Ratio 0.8 L D/C Instructions Discharge Diet: No restrictions Meaningful Use Info Meaningful Use Diagnoses (Choose all that apply): None applicable Discharge Plan Admission Admit Date/Time: 03/09/22 05:03 Primary Reason for Your Visit: Alcohol abuse Attending Provider: Kristy Vu Primary Care Provider: Lamar Aragon Consulting Providers: Ishan Couch Instructions Patient Instructions: Alcohol Addiction, Addiction: Getting Help, Addiction: Your Treatment Options Additional Instructions / Restrictions: ? It is important that you proceed to [facility] upon discharge. ? Continue home blood pressure medications as well as aspirin and omeprazole. Would advise against using baclofen given its sedating properties -Please call your primary care provider's office upon discharge to schedule a hospital follow up within 1 week. -For any concerning signs or symptoms please call 911 or proceed to the nearest emergency department Discharge Orders/Prescriptions Prescriptions: Continued lisinopril 40 mg tablet 40 mg PO DAILY Label Comments: TAKE 1 TABLET BY MOUTH ONCE DAILY omeprazole 20 mg Capsule,Delayed Release(Dr/Ec) 20 mg PO BID carvedilol 25 mg tablet 25 mg PO BID amlodipine 10 mg tablet 10 mg PO DAILY aspirin 81 mg tablet,chewable 81 mg PO BREAKFAST Discontinued baclofen 20 mg tablet 20 mg PO BID Label Comments: TAKE 1 TABLET BY MOUTH TWICE DAILY Referrals / Follow Up: Lamar Aragon, TACTICAL DEBRIEFER-C [Primary Care Provider] - Within 1 Week Disposition Disposition (needs filled in before D/C Order can be placed): Home, Self Care Charges/Coding Visit Charges Inpatient E&M: 82022 Disch Hosp
== END 2022-03-10 16:10 | disposition home or self-care (01) | DRG 775 ==
LOC: ED 17:00 → MS3 03-09 05:25
PROVIDERS: Emergency Medicine; Emergency Provider Emergency Medicine; PCP Nurse Practitioner Family; Visit Provider Internal Medicine
DX: F10.239 Alcohol dependence with withdrawal, unspecified (principal); F29 Unspecified psychosis not due to a substance or known physiological condition; R45.851 Suicidal ideations; F60.3 Borderline personality disorder; I25.10 Atherosclerotic heart disease of native coronary artery without angina pectoris; F17.210 Nicotine dependence, cigarettes, uncomplicated; I10 Essential (primary) hypertension; Z82.5 Family history of asthma and other chronic lower respiratory diseases; Y90.8 Blood alcohol level of 240 mg/100 ml or more; R74.8 Abnormal levels of other serum enzymes
CPT/HCPCS: 36415; 80048; 80053; 80076; 80307; 82077; 85025; 99285; 99406; A4216; J2405

== ENCOUNTER 2022-07-18 09:21 | Inpatient (IN) | payer MEDICAID, SELFPAY ==
[2022-07-18 08:39] VITALS: BMI 27.4
[2022-07-18 09:03] VITALS: BP 140/90; PULSE 100; RESP 16; TEMP 36.9; O2SAT 95
--- NOTE | 2022-07-18 09:20 | HP.PCM.HOS_ITS ---
HPI - General General Date of Admission: 07/18/22 Date of Service: 07/18/22 Chief Complaint: Desire for detoxification HPI Narrative GERDA MCGHEE, is a 37 M with past medical history single for hypertension, chronic alcohol dependence with multiple hospitalization for alcohol withdrawal who was transferred from from an outside hospital to [facility] with desire to undergo detoxification. Patient admitted to drinking almost daily. He apparently drinks bourbon. His last drink was the night prior to his admission. Admitted to regular nursing floor for initiation of his medical stabilization protocol [facility] Medical History Admitted to alcohol detoxification center Agitation Alcohol dependence Alcohol intoxication Alcohol intoxication Alcohol withdrawal Alcohol withdrawal Anxiety CAD (coronary artery disease) Depression ETOH abuse GERD (gastroesophageal reflux disease) Hernia Hypertension Jaundice Kidney stones Psychosis Seizures Smoker Suicidal ideation Home Medications lisinopril 40 mg tablet 40 mg PO DAILY HTN 11/02/20 [History Last Taken 09/13/21] omeprazole 20 mg capsule,delayed release 20 mg PO BID GERD 09/14/21 [History Last Taken 09/07/21] amlodipine 10 mg tablet 10 mg PO DAILY HTN 03/09/22 [History Last Taken Unknown] aspirin 81 mg chewable tablet 81 mg PO BREAKFAST [facility] 03/09/22 [History Last Taken Unknown] carvedilol 25 mg tablet 25 mg PO BID HTN 03/09/22 [History Last Taken Unknown] Allergy/AdvReac Type Severity Reaction Status Date / Time Penicillins [PCN] AdvReac Unknown Verified 09/14/21 19:44 Family History Mother Emphysema of lung Father Hereditary spastic paraplegia Other Alcoholism in family member Surgical History History of appendectomy History of coronary artery stent placement Social History household members: none housing: apartment Smoking Status: Current every day smoker tobacco type: cigarettes Smokeless tobacco user: other alcohol intake: current alcohol intake frequency: 3 or more drinks per day Alcohol type: beer, wine and hard liquor details: Currently primarily 1/2 gallon [place] daily, intermittent also beer/wine. substance use type: does not use ROS ROS Narrative GENERAL: denies fever, chills, night sweats, weight loss, anorexia HEENT: denies headache, sinus congestion, or drainage, dysphagia RESPIRATORY: denies cough, sputum production, shortness of breath, CARDIAC: denies chest pain, palpitations, orthopnea, PND GASTROINTESTINAL: nausea, vomiting, GENITOURINARY: denies dysuria, urgency, frequency, EXTREMITY: denies swelling MUSCULOSKELETAL: denies current joint pain or tenderness NEUROLOGIC: denies focal numbness, weakness, tingling HEMATOLOGIC: denies easy bruising and/or hemorrhage INTEGUMENT: denies rashes PSYCHIATRIC: denies suicidal or homicidal ideation Vital Signs Vital Signs Vital Signs: 07/18/22 09:03 07/18/22 08:39 Temperature 98.5 F Temperature Source Temporal Pulse Rate 100 Respiratory Rate 16 Respiratory Effort Normal Respiratory Depth Normal Respiratory Pattern Normal Blood Pressure [BP] 140/90 H Blood Pressure Mean [BP] 106 Blood Pressure Source [BP] Monitor Pulse Ox 95 Oxygen Delivery Method Room Air Room Air Physical Exam Narrative GENERAL: cooperative HEENT: Atraumatic; normocephalic EYES; Anicteric, Normal Conjunctiva NECK; supple, normal thyroid, RESPIRATORY: Diminished to auscultation CARDIOVASCULAR: Regular S1 S2, GI: soft, normoactive bowel sounds, : No Renal angle tenderness; EXTREMITIES: No edema, no clubbing, MUSCULOSKELETAL: no muscle wasting NEURO: Awake; no lateralizing signs. SKIN: No Rash PSYCH; tearful Assessment & Plan Assessment/Plan (1) Alcohol dependence with acute alcoholic intoxication: QUALIFIERS: Complication of substance-induced condition: uncomplicated Qualified Code(s): F10.220 - Alcohol dependence with intoxication, uncomplicated PLAN: Plan Patient is a 37-year-old gentleman with history of chronic alcohol dependence admitted with desire for detoxification 1. Alcohol dependence presented with desire for detoxification ? Patient has been admitted to regular nursing floor managed with phenobarb taper in addition to adjuvant treatment for his anticipated withdrawal 2. Hypertension - Blood pressure controlled, home medications continued with dose adjustment as needed 3. GERD ? On PPI continue 4. Tobacco dependence - Counseled on cessation, offered nicotine patch for tobacco cravings 5. DVT prophylaxis ? Low risk did encourage early ambulation Time spent in the patient's overall evaluation,decision-making process, review of diagnostic data, adjustment of management, discussion with other providers, nursing nursing and ancillary staff involved in patient's care documentation, 60 minutes Charges/Coding Visit Charges Inpatient E&M: 04337 Init Hosp L2
[2022-07-18 10:20] LABS: Absolute Lymphocyte Count 1.64 X10^3/uL (0.83-4.51); Absolute Neutrophil Count 2.9 X10^3/uL (2.0-7.7); Basophil# 0.02 X10^3/uL; Basophil% 0.4 % (0-1); Eosinophil# 0.01 X10^3/uL; Eosinophils% 0.2 % (0-5); Hematocrit 33.6 % (40-54); Hemoglobin 11.7 g/dL (13.0-16.5); Lymphocyte # 1.64 X10^3/ul (0.83-4.51); Lymphocyte % 32.6 % (19-41); Mean Corp Hgb Conc 34.8 g/dL (32-36); Mean Corpuscular Hgb 27.5 pg (27.0-32.0); Mean Corpuscular Volume 79.1 fL (80-94); Mean Platelet Vol. 10.4 fl (6.2-12.0); NRBC Flagged by Analyzer 0 % (0-5); Neutrophil # 2.92 X10^3/uL (2.7-7.7); Platelet Count 110 K/mm3 (150-450); RBC Distribution Width SD 39.4 fl (35.1-43.9); Red Blood Count 4.25 M/mm3 (4.6-6.2)
--- NOTE | 2022-07-18 10:26 | ADDICTION ---
This journalists and other writers met with patient at this time. Chart reviewed, client was admitted approx 30 minutes ago. He apparently was at [facility] seeking detox and was transferred to [facility]. Client is well-known to this journalists and other writers. He reports his last ETOH intake was yesterday sometime he does not remember, states he has been up most of the night while waiting at [facility] to be transferred to [facility]. He reports he was previously residing in his car. This journalists and other writers briefly discussed on-going treatment with patient for when he is d/c'd. He does agree to residential treatment-he is agreeble to [facility] in [place] (if [facility] does not accept client). He reports he was at [facility] about 1 month ago and believes he will be able to return. Denies legal issues. Overall, patient was pleasant with this journalists and other writers. He was visually shaking, reported N/V to this journalists and other writers. ASAM will need completed after patient has settled in.
[2022-07-18 10:34] LABS: ALB/GLOB Ratio 0.8 RATIO (0.9-2.4); AST(SGOT) 170 U/L (15-37); Alanine Aminotransfer ALT/SGPT 159 U/L (16-61); Albumin, Serum 2.8 g/dL (3.2-5.0); Alkaline Phosphatase 109 U/L (45-117); Anion Gap 15 (5-15); BUN 16 mg/dL (7-18); BUN/Creat Ratio 22.6 RATIO (10-20); Calcium,Total 7.6 mg/dL (8.5-10.1); Chloride 102 mmol/L (98-107); Creatinine, Serum 0.71 mg/dL (0.70-1.30); EST Glomerular Filtration Rate 133 mL/min (>60); Est Glom Filt Rate - Afr Amer 161 mL/min (>60); Estimated Creatinine Clearance 147.09 ml/min; Globulin 3.4 g/dL (2.2-4.2); Glucose 91 mg/dL (74-106); Lipase 316 U/L (73-393); Potassium 3.3 mmol/L (3.5-5.1); Protein, Total 6.2 g/dL (6.4-8.2); Sodium Level 138 mmol/L (136-145)
[2022-07-18] MEDS: amLODIPine 10 MG Tablet PO (10:44)
[2022-07-18] MEDS: Carvedilol 25 MG Tablet PO ×2 (10:44→22:28)
[2022-07-18] MEDS: Lisinopril 40 MG Tablet PO (10:44)
[2022-07-18] MEDS: Phenobarbital 32.4 MG Tablet 64.8 MG PO ×4 (10:44→22:28)
[2022-07-18] MEDS: Pantoprazole Sodium 20 MG Tablet PO ×2 (10:44→22:28)
[2022-07-18] MEDS: Gabapentin 300 MG Capsule PO ×2 (10:57→22:28)
[2022-07-18] MEDS: hydrOXYzine PAM 25 MG Capsule 50 MG PO ×2 (13:54→17:55)
[2022-07-18 15:15] VITALS: BP 143/97; PULSE 99; RESP 16; TEMP 36.6; O2SAT 98
[2022-07-18] MEDS: Dicyclomine 10 MG Capsule 20 MG PO (17:56)
[2022-07-18] MEDS: Potassium Chloride Oral Tablet 20 MEQ PO (17:56)
[2022-07-18 22:16] VITALS: BP 136/101; PULSE 104; RESP 18; TEMP 36.7; O2SAT 99
[2022-07-18] MEDS: Ibuprofen 600 MG Tablet PO (22:27)
[2022-07-18] MEDS: Ondansetron 8 MG Tablet PO (22:27)
[2022-07-18] MEDS: traZODone 100 MG Tablet PO (22:28)
[2022-07-19 03:41] VITALS: BP 116/73; PULSE 94; RESP 18; TEMP 36.6; O2SAT 96
[2022-07-19] MEDS: Phenobarbital 32.4 MG Tablet 64.8 MG PO ×6 (03:44→21:48)
[2022-07-19] MEDS: Methocarbamol 750 MG Tablet 1500 MG PO ×3 (03:44→21:53)
[2022-07-19 06:30] VITALS: BP 121/75; PULSE 90; RESP 18; TEMP 36.8; O2SAT 95
--- NOTE | 2022-07-19 07:43 | PCM.PN.HOSP ---
Reason for Visit Reason for Visit: Diagnoses Alcohol dependence with intoxication, uncomplicated (07/18/22) Subjective Subjective Patient is a 37-year-old gentleman with history of chronic alcohol dependence admitted with desire for detoxification. Admitted to regular nursing floor currently being managed with phenobarb taper Objective Data Objective Data Vital Signs: Vital Signs Temp Pulse Resp BP Pulse Ox O2 Del Method 98.2 F 90 18 121/75 H 95 Room Air 07/19/22 06:30 07/19/22 06:30 07/19/22 06:30 07/19/22 06:30 07/19/22 06:30 07/19/22 06:30 Oxygen Delivery Method Room Air Weight: 86.9 kg Body Mass Index (BMI) 27.4 Intake & Output: Intake and Output for Last 24 Hours 07/17/22 07/18/22 07/20/22 23:59 23:59 00:59 Intake Total 400 / 400 Balance 400 / 400 Lab / Micro Data Result Diagrams: 07/18/22 10:02 07/18/22 10:02 Labs: Laboratory Results - last 24 hr 07/18/22 10:02: WBC 5.0, RBC 4.25 L, Hgb 11.7 L, Hct 33.6 L, MCV 79.1 L, MCH 27.5, MCHC 34.8, RDW Std Deviation 39.4, RDW Coeff of Srinivasa 14.0, Plt Count 110 L, MPV 10.4, Immature Gran % (Auto) 0.800, Neut % (Auto) 58.0, Lymph % (Auto) 32.6, [place] % (Auto) 8.0, Eos % (Auto) 0.2, Baso % (Auto) 0.4, Absolute Neuts (auto) 2.9, Absolute Lymphs (auto) 1.64, Nucleated RBC % 0 07/18/22 10:02: Sodium 138, Potassium 3.3 L, Chloride 102, Carbon Dioxide 21.0, Anion Gap 15, BUN 16, Creatinine 0.71, Estim Creat Clear Calc 147.09, Est GFR (MDRD) Af Amer 161, Est GFR (MDRD) Non-Af 133, BUN/Creatinine Ratio 22.6 H, Glucose 91, Calcium 7.6 L, Total Bilirubin 0.70, AST 170 H, ALT 159 H, Alkaline Phosphatase 109, Total Protein 6.2 L, Albumin 2.8 L, Globulin 3.4, Albumin/Globulin Ratio 0.8 L, Lipase 316 07/18/22 10:02: Ethyl Alcohol 26.0 Physical Exam Narrative GENERAL: cooperative HEENT: Atraumatic; normocephalic EYES; Anicteric, Normal Conjunctiva NECK; supple, normal thyroid, RESPIRATORY: Diminished to auscultation CARDIOVASCULAR: Regular S1 S2, GI: soft, normoactive bowel sounds, : No Renal angle tenderness; EXTREMITIES: No edema, no clubbing, MUSCULOSKELETAL: no muscle wasting NEURO: Awake; no lateralizing signs. SKIN: No Rash PSYCH; tearful Assessment & Plan Assessment/Plan (1) Alcohol dependence with acute alcoholic intoxication: QUALIFIERS: Complication of substance-induced condition: uncomplicated Qualified Code(s): F10.220 - Alcohol dependence with intoxication, uncomplicated PLAN: Plan Patient is a 37-year-old gentleman with history of chronic alcohol dependence admitted with desire for detoxification 1. Alcohol dependence presented with desire for detoxification ? Patient has been admitted to regular nursing floor managed with phenobarb taper in addition to adjuvant treatment for his anticipated withdrawal ? 07/19/2022 patient has tolerated phenobarb taper protocol well so far 2. Hypertension - Blood pressure controlled, home medications continued with dose adjustment as needed 3. GERD ? On PPI continue 4. Tobacco dependence - Counseled on cessation, offered nicotine patch for tobacco cravings 5. DVT prophylaxis ? Low risk did encourage early ambulation Time spent in the patient's overall evaluation,decision-making process, review of diagnostic data, adjustment of management, discussion with other providers, nursing nursing and ancillary staff involved in patient's care documentation,35 minutes Charges/Coding Visit Charges Inpatient E&M: 97432 Subs Hosp L2
[2022-07-19] MEDS: Gabapentin 300 MG Capsule PO ×2 (09:54→21:53)
[2022-07-19] MEDS: amLODIPine 10 MG Tablet PO (09:55)
[2022-07-19] MEDS: Aspirin 81 MG TAB.CHEW PO (09:55)
[2022-07-19] MEDS: Folic Acid 1 MG Tablet PO (09:56)
[2022-07-19] MEDS: Lisinopril 40 MG Tablet PO (09:56)
[2022-07-19] MEDS: Thiamine Hydrochloride 100 MG Tablet PO (09:56)
[2022-07-19] MEDS: Pantoprazole Sodium 20 MG Tablet PO ×2 (09:56→21:49)
[2022-07-19] MEDS: Carvedilol 25 MG Tablet PO ×2 (09:57→21:49)
[2022-07-19] MEDS: Potassium Chloride Oral Tablet 20 MEQ PO ×2 (09:57→18:07)
[2022-07-19 10:00] VITALS: BP 132/75; PULSE 85; RESP 16; TEMP 36.7; O2SAT 99
[2022-07-19 14:00] VITALS: BP 128/70; PULSE 80; RESP 16; TEMP 36.8; O2SAT 99
[2022-07-19 18:51] VITALS: BP 114/75; PULSE 90; RESP 15; TEMP 36.7; O2SAT 98
[2022-07-19 21:40] VITALS: BP 151/103; PULSE 95; RESP 18; TEMP 36.8; O2SAT 98
[2022-07-19] MEDS: Ibuprofen 600 MG Tablet PO (21:49)
[2022-07-20] MEDS: traZODone 100 MG Tablet PO (00:48)
[2022-07-20] MEDS: hydrOXYzine PAM 25 MG Capsule 50 MG PO (00:48)
[2022-07-20] MEDS: Phenobarbital 32.4 MG Tablet 64.8 MG PO ×5 (01:08→17:26)
[2022-07-20 05:28] VITALS: BP 107/58; PULSE 83; RESP 18; TEMP 36.9; O2SAT 96
[2022-07-20] MEDS: Methocarbamol 750 MG Tablet 1500 MG PO ×2 (05:33→22:20)
--- NOTE | 2022-07-20 07:57 | PN.HOSP_ITS ---
Reason for Visit Reason for Visit: Diagnoses Alcohol dependence with intoxication, uncomplicated (07/18/22) Subjective Subjective Feels better. Tremor improved. Feels groggy. Objective Data Objective Data Vital Signs: Vital Signs Temp Pulse Resp BP Pulse Ox O2 Del Method 36.9 C 83 18 107/58 L 96 Room Air 07/20/22 05:28 07/20/22 05:28 07/20/22 05:28 07/20/22 05:28 07/20/22 05:28 07/20/22 05:28 Oxygen Delivery Method Room Air Weight: 86.9 kg Body Mass Index (BMI) 27.4 Intake & Output: Intake and Output for Last 24 Hours 07/18/22 07/19/22 07/20/22 22:59 23:59 23:59 Intake Total 500 / 500 Output Total Balance 500 / 500 Lab / Micro Data Result Diagrams: 07/18/22 10:02 07/18/22 10:02 Physical Exam Const alert and no apparent distress HEENT head/scalp atraumatic and moist oral mucous membranes Resp normal respiratory effort, no retractions, no use of accessory muscles and clear to auscultation bilaterally Cardio regular rate, regular rhythm, S1 normal heart sound and S2 normal heart sound GI normal to inspection, nondistended, normoactive bowel sounds, soft to palpation, non-tender and non-distended Extremity normal to inspection Assessment & Plan Assessment/Plan (1) Alcohol dependence with acute alcoholic intoxication: QUALIFIERS: Complication of substance-induced condition: uncomplicated Qualified Code(s): F10.220 - Alcohol dependence with intoxication, uncomplicated PLAN: Alcohol dependence presented with desire for detoxification ? Patient has been admitted to regular nursing floor managed with phenobarb taper in addition to adjuvant treatment for his anticipated withdrawal ? 07/19/2022 patient has tolerated phenobarb taper protocol well so far Patient to likely enroll to another residential program. Patient though was just discharged from a residential program where to resume drinking again. Patient told me that he ghosted his support group for few days then when he got in contact with him he became verbally abusive towards them. This was the patient's description of the encounter. Addiction medicine to see to see what program he would benefit from. Patient has had a history of impulsive behaviors, please refer to my previous notes and encounters with him. Patient was pleasant with me today however. PLAN: Plan Chronic conditions: * Hypertension- Blood pressure controlled, home medications continued with dose adjustment as needed * GERD? On PPI continue * Tobacco dependence - Counseled on cessation, offered nicotine patch for tobacco cravings DVT prophylaxis? Low risk did encourage early ambulation Charges/Coding Visit Charges Inpatient E&M: 30300 Subs Hosp L2
[2022-07-20] MEDS: Folic Acid 1 MG Tablet PO (09:00)
[2022-07-20] MEDS: Potassium Chloride Oral Tablet 20 MEQ PO ×2 (09:00→17:26)
[2022-07-20] MEDS: Aspirin 81 MG TAB.CHEW PO (09:00)
[2022-07-20] MEDS: Thiamine Hydrochloride 100 MG Tablet PO (09:00)
[2022-07-20] MEDS: Carvedilol 25 MG Tablet PO ×2 (10:58→22:13)
[2022-07-20] MEDS: Pantoprazole Sodium 20 MG Tablet PO ×2 (10:59→22:13)
[2022-07-20] MEDS: Lisinopril 40 MG Tablet PO (10:59)
[2022-07-20] MEDS: amLODIPine 10 MG Tablet PO (10:59)
[2022-07-20 11:10] VITALS: BP 130/82; PULSE 91; RESP 18; TEMP 37.2; O2SAT 99
--- NOTE | 2022-07-20 14:59 | ADDICTION ---
Addendum entered by Veronika Moran 07/20/22 15:17: Pt spoke to Jessica, pt's nurse, that transportation needed called in the morning with a d/c time. Number is Cassandra [phone] with [facility]. THERESA in file. Original Note: TW met with pt to complete ASAM, AUDIT, DUDIT, MSE, sign ROIs, and complete d/c planning. Pt expressed interest in residential treatment. TW had pt sign [facility]ERESA for the [facility] and contacted them for a bed. [facility] stated he could admit tomorrow and they would provide transportation. Pt is insistent that he needs to return to his father's house for his clothing, medications, and belongings before being able to admit to residential. TW and pt called pt's father together to discuss all of this and explain the process. Pt's father stated he would hold him accountable to going to treatment because pt would not be allowed to stay overnight at his home. Pt's father needs to be contacted prior to d/c tomorrow, and he will provide transportation. [facility] has been given pt's address/phone number and they will pick him up and transport him from pt's fathers home.
--- NOTE | 2022-07-20 16:53 | NURSING ---
07/20/22 1655- PLEASE CALL [facility] AT #[phone] WITH EXACT DC TIME PLEASE PER 180 BECAUSE THEY WONT BE HERE BEFORE DC. ALSO GIVE PTS DAD A CALL WITH PLENTY OF TIME TO PICK HIM UP FOR DISCHARGE BECAUSE HES COMING FROM [facility].
[2022-07-20 17:10] VITALS: BP 119/87; PULSE 86; RESP 18; TEMP 37.1; O2SAT 97
[2022-07-20 22:07] VITALS: BP 128/91; PULSE 98; RESP 18; TEMP 36.6; O2SAT 98
[2022-07-20] MEDS: Ibuprofen 600 MG Tablet PO (22:20)
[2022-07-20] MEDS: Gabapentin 300 MG Capsule PO (22:20)
[2022-07-21] MEDS: traZODone 100 MG Tablet PO (00:15)
[2022-07-21] MEDS: Phenobarbital 32.4 MG Tablet 64.8 MG PO ×3 (00:15→12:03)
[2022-07-21] MEDS: hydrOXYzine PAM 25 MG Capsule 50 MG PO (00:15)
[2022-07-21 06:42] VITALS: BP 118/79; PULSE 82; RESP 18; TEMP 36.6; O2SAT 100
[2022-07-21] MEDS: Potassium Chloride Oral Tablet 20 MEQ PO (08:09)
[2022-07-21] MEDS: Thiamine Hydrochloride 100 MG Tablet PO (08:09)
[2022-07-21] MEDS: Folic Acid 1 MG Tablet PO (08:09)
[2022-07-21] MEDS: Aspirin 81 MG TAB.CHEW PO (08:10)
[2022-07-21] MEDS: Carvedilol 25 MG Tablet PO (08:10)
[2022-07-21] MEDS: Pantoprazole Sodium 20 MG Tablet PO (08:11)
[2022-07-21] MEDS: amLODIPine 10 MG Tablet PO (08:11)
[2022-07-21] MEDS: Lisinopril 40 MG Tablet PO (08:12)
[2022-07-21] MEDS: Methocarbamol 750 MG Tablet 1500 MG PO (08:23)
[2022-07-21] MEDS: Gabapentin 300 MG Capsule PO (08:23)
--- NOTE | 2022-07-21 08:53 | DCINST_ITS ---
Discharge Instructions Diet Discharge Diet: No restrictions Activity Discharge Activity: Return to Normal Activity Follow Up Care Test Results: Test results from this visit will be discussed in further detail at your follow- up appointment, if applicable. Discharge Plan Admission Admit Date/Time: 07/18/22 09:21 Primary Reason for Your Visit: alcohol withdrawal Attending Provider: Ishan Couch Primary Care Provider: Lamar Aragon Consulting Providers: César James Discharge Orders/Prescriptions Prescriptions: New multivitamin Tablet 1 tab PO DAILY Qty: 30 0RF Continued lisinopril 40 mg tablet 40 mg PO DAILY Label Comments: TAKE 1 TABLET BY MOUTH ONCE DAILY omeprazole 20 mg Capsule,Delayed Release(Dr/Ec) 20 mg PO BID carvedilol 25 mg tablet 25 mg PO BID amlodipine 10 mg tablet 10 mg PO DAILY aspirin 81 mg tablet,chewable 81 mg PO BREAKFAST Referrals / Follow Up: Lamar Aragon, STEAM HOIST OPERATOR-C [Primary Care Provider] - Within 1 Month Disposition Disposition (needs filled in before D/C Order can be placed): Home, Self Care
--- NOTE | 2022-07-21 08:56 | DS.PCM_ITS ---
Providers Date of Admission: 07/18/22 Primary Care Physician: CHAD HobbsC Reason For Visit: ALCOHOL WITHDRAWAL Diagnosis Discharge Diagnosis (1) Alcohol dependence with acute alcoholic intoxication: Status: Acute Code(s): F10.229 - Alcohol dependence with intoxication, unspecified Qualifiers: Complication of substance-induced condition: uncomplicated Qualified Code(s): F10.220 - Alcohol dependence with intoxication, uncomplicated Plan: Patient doing well. Plan is for the patient to go to [facility] residential program today. Medications at Discharge Home Medications lisinopril 40 mg tablet 40 mg PO DAILY HTN 11/02/20 omeprazole 20 mg capsule,delayed release 20 mg PO BID GERD 09/14/21 amlodipine 10 mg tablet 10 mg PO DAILY HTN 03/09/22 aspirin 81 mg chewable tablet 81 mg PO BREAKFAST heart health 03/09/22 carvedilol 25 mg tablet 25 mg PO BID HTN 03/09/22 multivitamin 1 tab PO DAILY #30 tabs 07/21/22 Hospital Course Operations None Procedures None Summary of Care Provided Minutes Spent on Discharge: 26 Hospital Course: 37-year-old male presents seeking treatment for alcohol withdrawal. Course was uncomplicated. Patient has had a frequent history of presenting for alcohol withdrawal treatment and relapses. This is complicated by the patient's underlying psychiatric history and impulsive behaviors. Patient will be dis charged to facility called [facility]. This will be a residential program. Physical Exam Const Constitutional Narrative: Up in a chair. Afebrile. Starts become agitated as he wants to know sp ecifically the times that he is going to be discharged. Weight / BMI Weight Weight: 86.9 kg Body Mass Index (BMI) 27.4 ABG / Lab / Microbiology Data Result Diagrams: 07/18/22 10:02 07/18/22 10:02 D/C Instructions Discharge Diet: No restrictions Meaningful Use Info Meaningful Use Diagnoses (Choose all that apply): None applicable Discharge Plan Admission Admit Date/Time: 07/18/22 09:21 Primary Reason for Your Visit: alcohol withdrawal Attending Provider: Ishan Couch Primary Care Provider: Lamar Aragon Consulting Providers: César James Discharge Orders/Prescriptions Prescriptions: New multivitamin Tablet 1 tab PO DAILY Qty: 30 0RF Continued lisinopril 40 mg tablet 40 mg PO DAILY Label Comments: TAKE 1 TABLET BY MOUTH ONCE DAILY omeprazole 20 mg Capsule,Delayed Release(Dr/Ec) 20 mg PO BID carvedilol 25 mg tablet 25 mg PO BID amlodipine 10 mg tablet 10 mg PO DAILY aspirin 81 mg tablet,chewable 81 mg PO BREAKFAST Referrals / Follow Up: Lamar Aragon ENTRY LEVEL ACCOUNTING CLERK-C [Primary Care Provider] - Within 1 Month Disposition Disposition (needs filled in before D/C Order can be placed): Home, Self Care Charges/Coding Visit Charges Inpatient E&M: 78536 Disch Hosp
[2022-07-21] MEDS: Ibuprofen 600 MG Tablet PO (09:53)
--- NOTE | 2022-07-21 11:03 | PHA.DC.MR ---
Pharmacy Service has performed discharge medication reconciliation for this patient. The patient's discharge medication list was reviewed for discrepancies and discrepancies were resolved. Home Medications lisinopril 40 mg tablet 40 mg PO DAILY HTN 11/02/20 omeprazole 20 mg capsule,delayed release 20 mg PO BID GERD 09/14/21 amlodipine 10 mg tablet 10 mg PO DAILY HTN 03/09/22 aspirin 81 mg chewable tablet 81 mg PO BREAKFAST heart health 03/09/22 carvedilol 25 mg tablet 25 mg PO BID HTN 03/09/22 multivitamin 1 tab PO DAILY #30 tabs 07/21/22
[2022-07-21 12:00] VITALS: BP 135/97; PULSE 85; RESP 16; TEMP 36.6; O2SAT 99
[2022-07-21 12:34] VITALS: BP 124/89; PULSE 83; RESP 18; TEMP 36.7; O2SAT 98
== END 2022-07-21 12:34 | disposition home or self-care (01) | DRG 772 ==
PROVIDERS: Admitting Provider Internal Medicine; PCP Nurse Practitioner Family
DX: F10.239 Alcohol dependence with withdrawal, unspecified (principal); F17.210 Nicotine dependence, cigarettes, uncomplicated; I25.10 Atherosclerotic heart disease of native coronary artery without angina pectoris; I10 Essential (primary) hypertension; K21.9 Gastro-esophageal reflux disease without esophagitis; Z79.82 Long term (current) use of aspirin; Z79.899 Other long term (current) drug therapy; Z95.5 Presence of coronary angioplasty implant and graft
CPT/HCPCS: 80053; 82077; 83690; 85025; 99406; A4216

== ENCOUNTER → 2022-09-08 | Outpatient (REF) | payer MEDICAID, SELFPAY ==
[2022-09-08 08:47] LABS: Absolute Lymphocyte Count 2.43 X10^3/uL (0.83-4.51); Basophil# 0.04 X10^3/uL; Basophil% 0.6 % (0-1); Eosinophil# 0.19 X10^3/uL; Eosinophils% 2.6 % (0-5); Hematocrit 39.5 % (40-54); Hemoglobin 12.5 g/dL (13.0-16.5); Lymphocyte # 2.43 X10^3/ul (0.83-4.51); Lymphocyte % 33.6 % (19-41); Mean Corp Hgb Conc 31.6 g/dL (32-36); Mean Corpuscular Volume 82.1 fL (80-94); Mean Platelet Vol. 10.4 fl (6.2-12.0); Monocyte# 0.55 X10^3/uL; Monocyte% 7.6 % (0-10); NRBC Flagged by Analyzer 0 % (0-5); Neutrophil # 3.99 X10^3/uL (2.7-7.7); Neutrophil % 55.2 % (47-70); Platelet Count 277 K/mm3 (150-450); RBC Distribution Width CV 18.1 % (11.6-14.6); RBC Distribution Width SD 52.7 fl (35.1-43.9); Red Blood Count 4.81 M/mm3 (4.6-6.2); White Blood Count 7.2 K/mm3 (4.4-11.0)
[2022-09-08 09:00] LABS: Vitamin B12 407 pg/mL (211-911); Vitamin D,25 Hydroxy 28.4 ng/mL
[2022-09-08 09:08] LABS: Anion Gap 8 (5-15); BUN 14 mg/dL (7-18); BUN/Creat Ratio 16.1 RATIO (10-20); Calcium,Total 9.2 mg/dL (8.5-10.1); Chloride 104 mmol/L (98-107); Creatinine, Serum 0.87 mg/dL (0.70-1.30); EST Glomerular Filtration Rate 105 mL/min (>60); Est Glom Filt Rate - Afr Amer 127 mL/min (>60); Glucose 127 mg/dL (74-106); Magnesium 2.1 mg/dL (1.6-2.6); Sodium Level 135 mmol/L (136-145)
== END | disposition home or self-care (01) ==
LOC: OLS.SW 05:00
PROVIDERS: PCP Nurse Practitioner Family; Visit Provider Internal Medicine
DX: Z02.2 Encounter for examination for admission to residential institution (principal); F10.10 Alcohol abuse, uncomplicated
CPT/HCPCS: 36415; 80048; 82306; 82607; 83735; 84425; 85025

== ENCOUNTER → 2022-09-16 | Outpatient (REF) | payer MEDICAID, SELFPAY ==
[2022-09-16 10:31] LABS: Absolute Lymphocyte Count 1.69 X10^3/uL (0.83-4.51); Absolute Neutrophil Count 3.2 X10^3/uL (2.0-7.7); Basophil# 0.06 X10^3/uL; Basophil% 1.1 % (0-1); Eosinophil# 0.08 X10^3/uL; Eosinophils% 1.5 % (0-5); Hematocrit 40.2 % (40-54); Hemoglobin 12.5 g/dL (13.0-16.5); Lymphocyte # 1.69 X10^3/ul (0.83-4.51); Lymphocyte % 30.8 % (19-41); Mean Corp Hgb Conc 31.1 g/dL (32-36); Mean Corpuscular Hgb 26.2 pg (27.0-32.0); Mean Corpuscular Volume 84.3 fL (80-94); Mean Platelet Vol. 10.4 fl (6.2-12.0); Monocyte# 0.41 X10^3/uL; Monocyte% 7.5 % (0-10); NRBC Flagged by Analyzer 0 % (0-5); Neutrophil # 3.23 X10^3/uL (2.7-7.7); Neutrophil % 58.9 % (47-70); Platelet Count 381 K/mm3 (150-450); RBC Distribution Width CV 17.5 % (11.6-14.6); RBC Distribution Width SD 53.8 fl (35.1-43.9); Red Blood Count 4.77 M/mm3 (4.6-6.2); White Blood Count 5.5 K/mm3 (4.4-11.0)
[2022-09-16 10:40] LABS: Anion Gap 7 (5-15); BUN 21 mg/dL (7-18); BUN/Creat Ratio 23.5 RATIO (10-20); Calcium,Total 9.3 mg/dL (8.5-10.1); Chloride 110 mmol/L (98-107); Creatinine, Serum 0.89 mg/dL (0.70-1.30); EST Glomerular Filtration Rate 102 mL/min (>60); Est Glom Filt Rate - Afr Amer 123 mL/min (>60); Glucose 103 mg/dL (74-106); Potassium 4.4 mmol/L (3.5-5.1); Sodium Level 139 mmol/L (136-145)
== END | disposition home or self-care (01) ==
LOC: OLS.SW 05:00
PROVIDERS: PCP Nurse Practitioner Family; Visit Provider Internal Medicine
DX: G11.4 Hereditary spastic paraplegia (principal); I10 Essential (primary) hypertension
CPT/HCPCS: 36415; 80048; 85025